=== PATIENT | female | born 1960 | race Caucasian/White ===

== ENCOUNTER → 2016-09-07 | Outpatient (CLI) | payer MEDICAID ==
[~2016-09-07] MED LIST: ALBU2.5V4; ALPR0.5T PO; ASPI-999 PO; ATOR20TA66 PO; BENA5TAB2 PO; CEFP200T2 PO; CHOL10007 PO; CYCL10TA9 PO; FLUT1DIS28 IH; FRSM10B60 PO; GEMF600T3 PO; HYDR12.56 PO; LINA5TAB PO; LISI-552 PO; LOSA1TAB69; METF1000 PO; METO-333 PO; PARO-49 PO; POTA10TA6 PO; PRD20T PO; PSYL0.5211 PO; RANI150T90 PO; TRAZ-28 PO
--- NOTE | 2016-09-07 16:47 | Diagnostic Imaging Report ---
PROCEDURE: MRI left upper extremity without contrast. TECHNIQUE: Multiplanar, multisequence non contrast-enhanced MRI of the left upper extremity was accomplished. INDICATION: Left shoulder pain. FINDINGS: There is no os acromiale or Hill-Sachs deformity. There is acromioclavicular joint osteoarthritis with prominent inferior osteophytes that have an impression upon the myotendinous junction of the supraspinatus. There is also mild hyperostosis along the undersurface of the acromion abutting the infraspinatus tendon. There is a high-grade partial tear in the infraspinatus tendon about 1.7 cm from the insertion point. There is a full-thickness tear in the supraspinatus distal tendon with minimal retraction. 3 mm gap at the site of the tear along the anterior fibers of the supraspinatus is however seen which is about 5 mm from the insertion point. The subscapular tendon demonstrates no definite tear. There is mild increased signal in the distal tendon fibers may relate to tendinosis however. Increased signal in the posterior segment of the labrum may relate to a nondisplaced tear. There is subchondral edema in the marrow along the inferior aspect of the glenoid. This could be related to prior injury or reactive edema. Small amount of fluid in the subacromial subdeltoid bursa is seen and small amount of glenohumeral joint fluid is also noted. There is only minimal supraspinatus muscle atrophy. The bulk of the other muscles around the shoulder is normal. IMPRESSION: 1. High-grade partial tear in the infraspinatus and focal full-thickness tear in the supraspinatus anterior fibers. 2. Acromioclavicular osteoarthritis with prominent inferior osteophytes. There is also mild hyperostosis along the undersurface of the acromion posteriorly. 3. Increased signal in the posterior segment of the labrum may relate to a nondisplaced tear. Dictated by: Dictated on workstation # [id number]
== END ==
LOC: RAD 15:21
PROVIDERS: ATTEND Nurse Practitioner Family
DX: M25.512 Pain in left shoulder (principal)
CPT/HCPCS: 73221

== ENCOUNTER → 2016-10-27 | Outpatient (CLI) | payer MEDICAID ==
[2016-10-27 11:57] LABS: ABG BASE EXCESS -0.8 MMOL/L (-2.5-2.5); ABG HCO3 24 MMOL/L (23-27); ABG OXYGEN SATURATION 95 % (94-100); ABG PCO2 43 MMHG (35-45); ABG PH 7.36 (7.37-7.43); ABG PO2 68 MMHG (79-93); ABG TCO2 25.4 MMOL/L (21.0-31.0); ALLENS TEST YES-POS
--- NOTE | 2016-10-27 14:14 | Diagnostic Imaging Report ---
PA and lateral views of the chest. INDICATION: Shortness of breath. FINDINGS: The lungs are clear. There is mild hyperinflation however. The heart size is normal. There is no effusion or pneumothorax. The mediastinum and luly appear unremarkable. IMPRESSION: Mildly hyperinflated, clear lungs. Dictated by: Dictated on workstation # [id number]
== END ==
LOC: RAD 11:17
PROVIDERS: ATTEND Internal Medicine Critical Care Medicine
DX: R91.8 Other nonspecific abnormal finding of lung field (principal); J44.9 Chronic obstructive pulmonary disease, unspecified; R06.02 Shortness of breath; Z72.0 Tobacco use
CPT/HCPCS: 71020; 82805

== ENCOUNTER 2016-12-03 21:14 | Outpatient (CLI) | payer MEDICAID | END 2016-12-04 06:18 | disposition home or self-care (01) | LOC: SLEEP 21:14 | PROVIDERS: ATTEND Internal Medicine Critical Care Medicine | DX: G47.33 Obstructive sleep apnea (adult) (pediatric) (principal) | CPT/HCPCS: 95810 ==

== ENCOUNTER 2017-02-23 05:40 | Outpatient (CLI) | payer MEDICAID ==
[~2017-02-23] VITALS: Ht 152.4 cm; Wt 102.1 kg
[~2017-02-23 05:40] MED LIST changes: -ALBU2.5V4; +ALBU2.5V4 IN
[2017-02-23] MEDS ORDERED: ASPI-808 PO (14:24)
== END 2017-02-23 14:26 ==
LOC: PREOP 05:40
PROVIDERS: ATTEND Surgery
DX: Z01.818 Encounter for other preprocedural examination (principal); K21.9 Gastro-esophageal reflux disease without esophagitis

== ENCOUNTER 2017-02-28 09:36 | Day surgery (SDC) | payer MEDICAID ==
[~2017-02-28] VITALS: Ht 152.4 cm; Wt 102.1 kg
[~2017-02-28 09:36] MED LIST changes: +ASPI-808 PO; +LOSA1TAB20; -LOSA1TAB69
[2017-02-28 09:40] VITALS: BP 144/83
[2017-02-28] MEDS ORDERED: LACTATED RINGERS 1,000 ML IV ONE (09:41)
[2017-02-28] MEDS ORDERED: LACTATED RINGERS 1,000 ML IV STA (10:00)
[2017-02-28] MEDS ORDERED: proPOfol 200 MG/20 ML (DIPRIVAN) VIAL IV ONE (11:23)
[2017-02-28] MEDS ORDERED: HURRICAINE EXT TUBE (BENZOCAINE) ONE (11:26)
--- NOTE | 2017-02-28 11:37 | Progress Note-Pre Operative ---
Pre-Operative Progress Note H&P Reviewed The H&P was reviewed, patient examined and no changes noted. Date Seen by Provider: Feb 28, 2017 Time Seen by Provider: 11:36 Date H&P Reviewed: Feb 28, 2017 Time H&P Reviewed: 11:36 Pre-Operative Diagnosis: right upper quadrant pain, gerd DEBBI LYNN DO Feb 28, 2017 11:36
--- NOTE | 2017-02-28 11:46 | Progress Note-Post Operative ---
Post-Operative Progess Note Surgeon (s)/Ekg Monitor Tech (s) Surgeon DEBBI LYNN DO Ekg Monitor Tech: na Pre-Operative Diagnosis right upper quadrant pain, gerd Post-Operative Diagnosis gastritis Procedure & Operative Findings Date of Procedure 02/28/17 Procedure Performed/Findings egd c biopsies Anesthesia Type per [facility] Estimated Blood Loss Estimated blood loss (mL): none Specimens/Packing Specimens Removed antrum, ge junction DEBBI LYNN DO Feb 28, 2017 11:46
[2017-02-28] MEDS ORDERED: PANT40TA2 PO (11:48)
--- NOTE | 2017-02-28 11:55 | Discharge Inst-Simple/Standard ---
Discharge Inst-Standard Discharge Medications New, Converted or Re-Newed RX: RX on Chart Patient Instructions/Follow Up Plan of Care/Instructions/FU: 3 weeks Adrianne Activity as Tolerated: Yes Discharge Diet: Regular Diet DEBBI LYNN DO Feb 28, 2017 11:55
[2017-02-28 12:00] VITALS: BP 142/96
[2017-02-28] MEDS ORDERED: HURRICAINE EXT TUBE (BENZOCAINE) XX ONE (12:00)
[2017-02-28 12:30] VITALS: BP 167/82
[2017-02-28 12:39] VITALS: BP 167/82
--- NOTE | 2017-03-01 04:35 | OPERATIVE REPORT ---
DATE OF SERVICE: 02/28/2017 PREOPERATIVE DIAGNOSES: 1. Right upper quadrant abdominal pain. 2. Gastroesophageal reflux disease. POSTOPERATIVE DIAGNOSES: Gastritis. PROCEDURE: GE biopsies. SPECIMEN: Antrum and GE junction. INDICATION: The patient is a 56-year-old female with right upper quadrant abdominal pain. She understands the risks and benefits of the procedure and wishes to proceed with the procedure. Consents signed and in the chart. PROCEDURE: The patient was taken to the endoscopy suite, placed in left lower recumbent position. Timeout was performed. The scope was inserted in the mouth, down the esophagus, stomach and into the duodenum without difficulty. There were no polyps, masses or ulcerations in the duodenum. The scope was slowly retracted back into the stomach which had erythematous changes and the appearance of maybe 2 small ulcers in the antrum, biopsy was obtained. The scope was retroflexed noting no other pathology. The scope was returned to its normal position, slowly withdrawn to the distal esophagus. Maybe some slight erythematous changes present, so a biopsy was obtained of the GE junction. The scope was slowly retracted back until completely removed, noting no other pathology. RECOMMENDATIONS: The patient will be switched from Pepcid to Protonix 40 mg daily. We will see her in 3 weeks to see how she is doing at that time and go over the biopsy results. If she has any problems prior to that, she should be reevaluated at that time. Job ID: [id number] DocumentID: [id number] Dictated Date: 02/28/2017 11:58:11 Nurse Manager Date: 03/01/2017 04:34:38 Dictated By: DEBBI LYNN DO
[2017-04-20] MEDS ORDERED: METF500T4 PO (14:13)
[2017-04-20] MEDS ORDERED: PANT40TA3 PO (14:13)
[2017-04-20] MEDS ORDERED: FENO54TA PO (14:13)
[2017-04-20] MEDS ORDERED: HYDR-3812 PO (14:13)
[2017-04-20] MEDS ORDERED: TIOT18CA2 IH (14:13)
[2017-04-20] MEDS ORDERED: RT-ALBUINH IH (14:13)
[2017-04-20] MEDS ORDERED: MONT10TA24 PO (14:13)
[2017-04-20] MEDS ORDERED: BACL10TA PO (14:13)
[2017-04-20] MEDS ORDERED: FLUT1DIS26 IH (14:13)
[2017-04-20] MEDS ORDERED: OMEG-154 PO (14:13)
== END 2017-02-28 12:35 | disposition home or self-care (01) ==
LOC: ENDO 09:36
PROVIDERS: ATTEND Surgery
DX: I10 Essential (primary) hypertension; E78.00 Pure hypercholesterolemia, unspecified; M06.9 Rheumatoid arthritis, unspecified; K21.9 Gastro-esophageal reflux disease without esophagitis; M79.7 Fibromyalgia; E05.90 Thyrotoxicosis, unspecified without thyrotoxic crisis or storm; Z79.84 Long term (current) use of oral hypoglycemic drugs; J44.9 Chronic obstructive pulmonary disease, unspecified; G47.33 Obstructive sleep apnea (adult) (pediatric); K29.70 Gastritis, unspecified, without bleeding; E11.9 Type 2 diabetes mellitus without complications; Z79.899 Other long term (current) drug therapy; F17.210 Nicotine dependence, cigarettes, uncomplicated
CPT/HCPCS: 82962; 88305

== ENCOUNTER → 2017-03-07 | Outpatient (CLI) | payer MEDICAID ==
[~2017-03-07] MED LIST changes: -LOSA1TAB20; +LOSA1TAB69; +PANT40TA2 PO
--- NOTE | 2017-03-07 09:35 | Diagnostic Imaging Report ---
PROCEDURE: US Gallbladder. TECHNIQUE: Multiple real-time grayscale images were obtained over the right upper quadrant in various projections. INDICATION: Abdominal pain. FINDINGS: The area of the pancreas is largely obscured. The liver is hyperechoic and is 23 cm in craniocaudal dimension, enlarged. The echogenicity is in favor of underlying hepatitis or fatty infiltration. The gallbladder demonstrates no stones or wall thickening. The CBD is 4 mm in caliber. Hepatopetal flow in the portal vein is seen. There is no fluid collection in the upper right abdomen seen. The right kidney is 10.4 cm in length with no hydronephrosis. IMPRESSION: 1. No gallstones or evidence of cholecystitis. 2. Hepatomegaly. Increased parenchymal echogenicity may relate to hepatitis or fatty infiltration. Dictated by: Dictated on workstation # [id number]
== END ==
LOC: RAD 08:22
PROVIDERS: ATTEND Surgery
DX: R16.0 Hepatomegaly, not elsewhere classified (principal); K21.9 Gastro-esophageal reflux disease without esophagitis
CPT/HCPCS: 76705

== ENCOUNTER 2017-04-26 10:29 | Day surgery (SDC) | payer MEDICAID ==
--- NOTE | 2017-04-17 14:13 | HISTORY AND PHYSICAL ---
DATE OF SERVICE: DATE OF ADMISSION: 04/26/2017 ADMISSION HISTORY AND PHYSICAL SOCIAL SECURITY: 4595. REASON FOR ADMISSION: This will be for outpatient surgery on 04/26/2017 for left shoulder arthroscopy with rotator cuff repair. HISTORY OF PRESENT ILLNESS: The patient is a 57-year-old right-hand dominant female with complaints of left shoulder pain over the last 6 months. She reports weakness in her shoulder. She underwent an MRI, which revealed full thickness supraspinatus tear. She reports functional impairment. She reports no improvement with activity modifications and other conservative measures and due to functional impairment. The patient elected to proceed with surgical intervention. PAST MEDICAL HISTORY: COPD, depression, diverticulosis, diabetes, hypertension, fibromyalgia, hypothyroidism, rheumatoid arthritis, chronic pain, diabetic neuropathy, anxiety disorder, reflux, tobacco use. PAST SURGICAL HISTORY: , cardiac catheterization, hysterectomy, and herniorrhaphy. FAMILY HISTORY: Significant for diabetes, hypertension, and cancer. PRIMARY CARE PROVIDER: [facility]. MEDICATIONS: Metamucil, vitamin D, Zofran, cyclobenzaprine, alprazolam, Tradjenta, metformin, benazepril, metoprolol, ranitidine, paroxetine, albuterol, Ventolin, Advair, fenofibrate, Spiriva, Singulair, fish oil, and aspirin. ALLERGIES: CYMBALTA and CRESTOR. SOCIAL HISTORY: The patient is a current everyday smoker. Denies alcohol use. PHYSICAL EXAMINATION: GENERAL: The patient is well developed, well-nourished in no acute distress. HEENT: Normocephalic, atraumatic. Pupils are equal, round, and reactive to light. Oropharynx is clear. NECK: Supple, no lymphadenopathy. LUNGS: Clear to auscultation bilaterally. HEART: Regular rate and rhythm. ABDOMEN: Soft, nontender, nondistended. EXTREMITIES: The patient is nontender at her acromioclavicular joint. There is no atrophy noted. She has active forward elevation 140 degrees, passive of 160 degrees, external rotation of 70 degrees, internal rotation is to her upper lumbar spine. She has weakness with abduction and external rotation. IMPRESSION: Left shoulder rotator cuff tear. PLAN: Left shoulder arthroscopy with rotator cuff repair. The risks, benefits, options, ramifications and recovery have been discussed at length with the patient. She understands and wishes to proceed. Job ID: [id number] DocumentID: [id number] Dictated Date: 04/17/2017 13:24:59 Tank Builder Supervisor Date: 04/17/2017 14:13:14 Dictated By: LORI ALICEA MD
[~2017-04-26] VITALS: Ht 152.4 cm; Wt 108.9 kg
[~2017-04-26 10:29] MED LIST changes: +BACL10TA PO; +FENO54TA PO; +FLUT1DIS26 IH; +HYDR-3812 PO; +METF500T4 PO; +MONT10TA24 PO; +OMEG-154 PO; +PANT40TA3 PO; +RT-ALBUINH IH; +TIOT18CA2 IH
--- OUTSIDE RECORDS SUMMARY | 2017-04-26 10:34 | XMS REPORT | Continuity of Care Document ---
Author Author [employer] Organization [facility] Address Unknown Phone Unavailable Care Team Providers Care Appliance Servicer Name Role Phone [employer] Unavailable Unavailable Problems Medications Allergies, Adverse Reactions, Alerts Immunizations Results Vital Signs Encounters Procedures Plan of Care Social History Assessment and Plan Family History Value Date Source Advance Directives Order Name Results Value Date Source
--- OUTSIDE RECORDS SUMMARY | 2017-04-26 10:35 | XMS REPORT ---
Author Author KATIE JEFFRIES Organization [facility] Address [address] [place] [address] Care Team Providers Care Director Of Accounts Payable Name Role Phone KATIE JEFFRIES Unavailable PROBLEMS Type Condition ICD9-CM Code [id number] Code Onset Dates Condition Status SNOMED Code Problem Type 2 diabetes mellitus with unspecified complications E11.8 Active 92360041 Problem Controlled substance agreement signed Z79.899 Active 445027094 Problem Low magnesium levels E83.42 Active 115832435 Problem 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 Active 31265305 Problem Osteoarthritis of acromioclavicular joint M19.019 Active 356404540 Problem Chronic renal insufficiency N18.9 Active 898074053 Problem Mild sleep apnea G47.30 Active 25889657 Problem Hyperlipidemia E78.5 Active 97757805 Problem Mixed hyperlipidemia E78.2 Active 570010572 Problem Vitamin D deficiency E55.9 Active 62267970 Problem Excessive daytime sleepiness G47.19 Active 013351641486 Problem Anxiety associated with depression F41.8 Active 734401236 Problem Peripheral neuropathy G62.9 Active 40194126 Problem Tear of left infraspinatus tendon, subsequent encounter S46.812D Active 8307416 Problem Tear of left supraspinatus tendon, subsequent encounter S46.812D Active 684066072 Problem COPD (chronic obstructive pulmonary disease) J44.9 Active 34270166 Problem GERD (gastroesophageal reflux disease) K21.9 Active 366498586 Problem Essential hypertension I10 Active 59881602 Problem Low back pain M54.5 Active 796409035 Problem Insomnia G47.00 Active 406737020 Problem Other chronic pain G89.29 Active 59179500 ALLERGIES No Information SOCIAL HISTORY Never Assessed PLAN OF CARE VITAL SIGNS MEDICATIONS Medication Instructions Dosage Frequency Start Date End Date Duration Status Xanax 0.5 MG Orally Twice a day and 1/2 at HS 1 tablet 28 days Active RESULTS No Results PROCEDURES No Known procedures IMMUNIZATIONS No Known Immunizations MEDICAL (GENERAL) HISTORY Type Description Date Medical History Essential (primary) hypertension Medical History Diabetes Medical History Depression Medical History Chronic pain Medical History COPD Medical History Rheumatoid arthritis Medical History Diabetic neuropathy Medical History Fibromyalgia Medical History nodules on lung and liver Medical History mass on adrenal gland Medical History diverticulosis Medical History hyperthyroidism Surgical History section x 3 Surgical History hernia repair Surgical History hysterectomy Surgical History Heart cath 11/24/2015 Hospitalization History surgeries Hospitalization History Acute Renal Failure, Ecaxerbation COPD, Hyponatremia 10/02/15 Hospitalization History COPD x 3 days 03/14/2017
--- OUTSIDE RECORDS SUMMARY | 2017-04-26 10:35 | XMS REPORT ---
Author Author KATIE JEFFRIES Organization [facility] Address [address] [place] [address] Care Team Providers Care Manager Labor Relations Name Role Phone KATIE JEFFRIES Unavailable PROBLEMS Type Condition ICD9-CM Code [id number] Code Onset Dates Condition Status SNOMED Code Problem Mild sleep apnea G47.30 Active 59810177 Problem Osteoarthritis of acromioclavicular joint M19.019 Active 811042076 Problem Tear of left infraspinatus tendon, subsequent encounter S46.812D Active 5004877 Problem Low vitamin D level E55.9 Active 355402187 Problem Tear of left supraspinatus tendon, subsequent encounter S46.812D Active 160430639 Problem Controlled substance agreement signed Z79.899 Active 181511040 Problem Type 2 diabetes mellitus with unspecified complications E11.8 Active 48241952 Problem Hyperlipidemia E78.5 Active 97889437 Problem Dyspnea R06.00 Active 956045231 Problem Hypertriglyceridemia E78.1 Active 298530844 Problem Chronic renal insufficiency N18.9 Active 093500212 Problem COPD (chronic obstructive pulmonary disease) with acute bronchitis J44.0 Active 867290922300283 Problem Essential hypertension I10 Active 77908622 Problem Peripheral neuropathy G62.9 Active 93690920 Problem Anxiety associated with depression F41.8 Active 705484922 Problem Excessive daytime sleepiness G47.19 Active 923292239933 Problem Chest pain, unspecified R07.9 Active 90861490 Problem Left anterior shoulder pain M25.512 Active 50151561 Problem Vitamin D deficiency E55.9 Active 63706243 Problem GERD (gastroesophageal reflux disease) K21.9 Active 465192537 Problem Low back pain M54.5 Active 083771483 Problem Insomnia G47.00 Active 410985937 Problem COPD (chronic obstructive pulmonary disease) J44.9 Active 45907817 Problem Tobacco abuse Z72.0 Active 51350767 Problem Low magnesium levels E83.42 Active 201037692 Problem Other chronic pain G89.29 Active 43617458 Problem Mixed hyperlipidemia E78.2 Active 179971451 ALLERGIES No Information SOCIAL HISTORY Never Assessed PLAN OF CARE VITAL SIGNS MEDICATIONS Medication Instructions Dosage Frequency Start Date End Date Duration Status Baclofen 10 mg Orally Three times a day as needed 0.5 tablet with food or milk Aug, 10 days Active RESULTS Name Result Date Reference Range MRI : Shoulder, Left 2016-09-07 PROCEDURES No Known procedures IMMUNIZATIONS No Known [...]
--- OUTSIDE RECORDS SUMMARY | 2017-04-26 10:35 | XMS REPORT ---
Author Author KATIE JEFFRIES Organization [facility] Address [address] [place] [address] Care Team Providers Care Inseam Trimming Machine Operator Name Role Phone KATIE JEFFRIES Unavailable PROBLEMS Type Condition ICD9-CM Code [id number] Code Onset Dates Condition Status SNOMED Code Problem Mild sleep apnea G47.30 Active 42199554 Problem Osteoarthritis of acromioclavicular joint M19.019 Active 996633040 Problem Low magnesium levels E83.42 Active 138774615 Problem Tear of left infraspinatus tendon, subsequent encounter S46.812D Active 5979759 Problem Low vitamin D level E55.9 Active 025163809 Problem Tear of left supraspinatus tendon, subsequent encounter S46.812D Active 733597546 Problem Controlled substance agreement signed Z79.899 Active 875909407 Problem Hypertriglyceridemia E78.1 Active 287359249 Problem Hyperlipidemia E78.5 Active 81041349 Problem COPD (chronic obstructive pulmonary disease) with acute bronchitis J44.0 Active 646124896998250 Problem Left anterior shoulder pain M25.512 Active 55925331 Problem Peripheral neuropathy G62.9 Active 12621793 Problem Anxiety associated with depression F41.8 Active 271572239 Problem Type 2 diabetes mellitus with unspecified complications E11.8 Active 10046222 Problem Chest pain, unspecified R07.9 Active 24139141 Problem Dyspnea R06.00 Active 133755975 Problem Vitamin D deficiency E55.9 Active 99790295 Problem Excessive daytime sleepiness G47.19 Active 800133597240 Problem COPD (chronic obstructive pulmonary disease) J44.9 Active 85352072 Problem GERD (gastroesophageal reflux disease) K21.9 Active 208701316 Problem Essential hypertension I10 Active 70706826 Problem Insomnia G47.00 Active 936370245 Problem Mixed hyperlipidemia E78.2 Active 171759230 Problem Tobacco abuse Z72.0 Active 03512794 Problem Low back pain M54.5 Active 537837664 Problem Other chronic pain G89.29 Active 55743358 ALLERGIES Substance Reaction Event Type Date Status Cymayaalta suicidal thoughts Drug Allergy Aug, Active Crestor Unknown Drug Allergy Aug, Active SOCIAL HISTORY Never Assessed PLAN OF CARE Activity Details Follow Up 3 Months Reason:chm VITAL SIGNS Height 65 in 2016-08-11 Weight 218.0 lbs 2016-08-11 Temperature 98.5 degrees Fahrenheit 2016-08-11 Heart Rate 96 bpm 2016-08-11 Respiratory Rate 24 2016-08-11 Oximetry 94 % 2016-08-11 BMI 36.27 kg/m2 2016-08-11 Blood pressure systolic 162 mmHg 2016-08-11 Blood pressure diastolic 90 mmHg 2016-08-11 MEDICATIONS Medication Instructions Dosage Frequency Start Date End Date Duration Status Xanax 0.5 MG Orally Twice a day and 1/2 at HS 1 tablet 28 days Active Fish Oil 1200 MG Orally Once a day 1 capsule 24h Active Zofran 4 MG Orally 2 times a day 1 tablet 12h Jun, 10 days Active Singulair 10 mg Orally Once a day 1 tablet in the evening 24h 90 days Active Albuterol Sulfate (2.5 MG/3ML) 0.083% Inhalation Three times a day PRN 3 ml Active Albuterol Sulfate HFA 108 (90 Base) MCG/ACT Inhalation every 4 hrs 2 puffs as needed 4h May, 12 months Active Paroxetine HCl 20 mg Orally 2 times a day 1 tablet 12h Sep, 90 days Active Fenofibrate 54 MG Orally Once a day 1 tablet with a meal 24h May, 90 days Active QC Ibuprofen 200 MG Orally every 6 hrs 1 tablet as needed 6h May, Active Ranitidine HCl 150 MG Orally Twice a day 1 capsule 12h 90 days Active Tradjenta 5 mg Orally Once a day 1 tablet 24h Sep, 90 days Active Advair Diskus 250-50 MCG/DOSE Inhalation Twice a day 1 puff 12h Sep, 12 months Active Metamucil 0.52 GM Orally Three times a day 2 capsules with 8 ounces of liquid 8h Active Flexeril 10 oral 3 times a day 8h Active Doxycycline Monohydrate 100 mg Orally every 12 hrs 1 capsule 12h Aug, Aug, 07 days Active Metoprolol Tartrate 25 MG Orally Twice a day 1 tablet with food 12h Aug 90 days Active Spiriva HandiHaler 18 MCG Inhalation Once a day 1 capsule 24h October, 90 days Active Vitamin D-3 5000 UNIT Orally once daily 1 tablet 24h May, October, 90 days Active Benazepril HCl 5 mg Orally Once a day 1 tablet 24h Sep, 90 days Active Aspirin 325 MG Orally Once a day 1 tablet 24h Active PredniSONE 20 mg Orally Once a day 1 tablet 24h Aug, Aug, 05 days Active Metformin HCl 1000 MG Orally Twice a day 1 tablet with meals 12h Apr, 90 days Active RESULTS Name Result Date Reference Range UA LONG DIP (IN HOUSE) 2016-08-11 Lot # [id number] Exp date 07/12/17 Clarity clear Color yellow Odor none GLU negative RAMU negative KET negative SG 1.015 BLO negative pH 6.5 Protein negative URO 0.2 NIT negative VINCENT negative Lot # Exp date Xray : Shoulder, Left 2 view (IN HOUSE) 2016-08-11 Xray : Chest (IN HOUSE) 2016-08-11 CBC 2016-08-11 WBC 11.7 3.4-10.8 RBC 4.54 3.77-5.28 Hemoglobin 12.6 11.1-15.9 Hematocrit 38.6 34.0-46.6 MCV 85 79-97 MCH 27.8 26.6-33.0 MCHC 32.6 31.5-35.7 RDW 17.3 12.3-15.4 Platelets 400 150-379 Neutrophils 62 Lymphs 26 Monocytes 9 Eos 3 Basos 0 Neutrophils (Absolute) 7.1 1.4-7.0 Lymphs (Absolute) 3.1 0.7-3.1 Monocytes(Absolute) 1.1 0.1-0.9 Eos (Absolute) 0.3 0.0-0.4 Baso (Absolute) 0.0 0.0-0.2 Immature Granulocytes 0 Immature Grans (Abs) 0.0 0.0-0.1 CMP 2016-08-11 Glucose, Serum 135 65-99 BUN 13 6-24 Creatinine, Serum 1.02 0.57-1.00 eGFR If NonAfricn Am 62 >59 eGFR If Africn Am 72 >59 BUN/Creatinine Ratio 13 9-23 Sodium, Serum 137 134-144 Potassium, Serum 4.5 3.5-5.2 Chloride, Serum 96 96-106 Carbon Dioxide, Total 26 18-29 Calcium, Serum 9.2 8.7-10.2 Protein, Total, Serum 7.4 6.0-8.5 Albumin, Serum 4.4 3.5-5.5 Globulin, Total 3.0 1.5-4.5 A/G Ratio 1.5 1.1-2.5 Bilirubin, Total <0.2 0.0-1.2 Alkaline Phosphatase, S 60 39-117 AST (SGOT) 12 0-40 ALT (SGPT) 11 0-32 PROCEDURES Procedure Date Ordered Result Body Site MEASURE BLOOD OXYGEN LEVEL August 11, 2016 CHEST X-RAY August 11, 2016 VENIPUNCT, ROUTINE* August 11, 2016 COMPREHEN METABOLIC PANEL August 11, 2016 X-RAY EXAM OF SHOULDER August 11, 2016 URINALYSIS, AUTO, W/O SCOPE August 11, 2016 COMPLETE CBC W/AUTO DIFF WBC August 11, 2016 IMMUNIZATIONS No Known Immunizations MEDICAL (GENERAL) HISTORY [...]
--- OUTSIDE RECORDS SUMMARY | 2017-04-26 10:35 | XMS REPORT ---
Author Author NICOLE CLINE Organization [employer] Address Unknown Phone Unavailable Care Team Providers Care Clock Mechanic Name Role Phone NICOLE CLINE CP Unavailable Allergies No Known Allergies Problems Problem Type Condition Code Onset Dates Condition Status Assessment Hyperlipemia E78.5 Active Problem Insomnia G47.00 Active Problem COPD (chronic obstructive pulmonary disease) J44.9 Active Problem Essential hypertension I10 Active Problem Peripheral neuropathy G62.9 Active Problem Type 2 diabetes mellitus with unspecified complications E11.8 Active Problem GERD (gastroesophageal reflux disease) K21.9 Active Problem Anxiety associated with depression F41.8 Active Problem Low back pain M54.5 Active Problem Other chronic pain G89.29 Active Medications Medication Code System Code Instructions Start Date End Date Status Dosage Atorvastatin Calcium [facility] [address]-27 20 MG Orally Once a day Jun 10, 2015 1 tablet Vitamin D-3 [facility] [address]-14 5000 UNIT Orally once daily Jun 10, 2015 1 tablet Results No Known Results Summary Purpose [employer] Submission
--- OUTSIDE RECORDS SUMMARY | 2017-04-26 10:35 | XMS REPORT ---
Author Author KATIE JEFFRIES Organization [employer] Address Unknown Phone Unavailable Care Team Providers Care Otm Consultant Name Role Phone KATIE JEFFRIES CP Unavailable Allergies No Known Allergies Problems Problem Type Condition Code Onset Dates Condition Status Problem Low magnesium levels E83.42 Active Problem COPD (chronic obstructive pulmonary disease) J44.9 Active Problem Controlled substance agreement signed Z79.899 Active Problem Insomnia G47.00 Active Problem Mixed hyperlipidemia E78.2 Active Problem Hypertriglyceridemia E78.1 Active Problem Hyperlipidemia E78.5 Active Problem Vitamin D deficiency E55.9 Active Problem Hospital discharge follow-up Z09 Active Problem Other chronic pain G89.29 Active Problem GERD (gastroesophageal reflux disease) K21.9 Active Problem Bronchitis J40 Active Problem Anxiety associated with depression F41.8 Active Problem Shortness of breath R06.02 Active Problem Chest pain, unspecified R07.9 Active Problem Excessive daytime sleepiness G47.19 Active Problem Dyspnea R06.00 Active Problem Essential hypertension I10 Active Problem Type 2 diabetes mellitus with unspecified complications E11.8 Active Problem Low back pain M54.5 Active Problem Peripheral neuropathy G62.9 Active Problem Upper respiratory tract infection, unspecified type J06.9 Active Problem Low vitamin D level E55.9 Active Problem Tobacco abuse Z72.0 Active Problem Nausea and vomiting, unspecified intactability, vomiting of unspecified type R11.2 Active Medications No Known Medications Results No Known Results Summary Purpose [employer] Submission
--- OUTSIDE RECORDS SUMMARY | 2017-04-26 10:36 | XMS REPORT ---
Author Author NICOLE CLINE Organization [employer] Address Unknown Phone Unavailable Care Team Providers Care Health Services Administrator Name Role Phone NICOLE CLINE CP Unavailable Allergies No Known Allergies Problems Problem Type Condition Code Onset Dates Condition Status Problem Insomnia G47.00 Active Problem COPD (chronic obstructive pulmonary disease) J44.9 Active Problem Essential hypertension I10 Active Problem Peripheral neuropathy G62.9 Active Problem Type 2 diabetes mellitus with unspecified complications E11.8 Active Problem GERD (gastroesophageal reflux disease) K21.9 Active Problem Anxiety associated with depression F41.8 Active Problem Low back pain M54.5 Active Problem Other chronic pain G89.29 Active Medications No Known Medications Results No Known Results Summary Purpose eClinicalWorks Submission
--- OUTSIDE RECORDS SUMMARY | 2017-04-26 10:36 | XMS REPORT ---
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 Active Problem Muscle spasm of calf M62.831 Active Problem Type 2 diabetes mellitus with unspecified complications E11.8 Active Problem Essential hypertension I10 Active Problem Diabetes E11.9 Active Problem Other chronic pain G89.29 Active Problem GERD (gastroesophageal reflux disease) K21.9 Active Problem Peripheral neuropathy G62.9 Active Problem Low back pain M54.5 Active Assessment Generalized anxiety disorder F41.1 Active Assessment Anxiety about health F41.8 Active Assessment Low back pain M54.5 Active Assessment Acute stress reaction F43.0 Active Problem COPD (chronic obstructive pulmonary disease) J44.9 Active Medications Medication Code System Code Instructions Start Date End Date Status Dosage Hydrocodone-Acetaminophen [facility] [address]-75 5-325 MG Orally 2 times a day Jun 04, 2015 2 tablet as needed Xanax [facility] [address]-73 0.5 MG Orally Three times a day 1 tablet Nystatin [facility] [address]-89 057845 UNIT/ML Mouth/Throat 4 times a day MayJun 02, 2015 5mL Omeprazole [facility] [address]-53 20 MG Orally Once a day 1 capsule Trazodone HCl [facility] [address]-65 50 MG Orally Once a day 1 tablet at bedtime as needed Metformin HCl [facility] [address]-02 1000 MG Orally Twice a day May 05, 2015 1 tablet with meals Hydrochlorothiazide [facility] [address]-59 12.5 MG Orally Once a day May 05, 2015 1 tablet Flexeril ND 0 10 oral 3 times a day not defined Albuterol Sulfate [facility] [address]-20 (2.5 MG/3ML) 0.083% Inhalation Three times a day 3 ml Procedures Procedure Coding System Code Date No Charge CPT-4 85666 May 19, 2015 Office Visit, Est Pt., Level 4 CPT-4 01384 May 19, 2015 DRUG SCREEN NON TLC DEVICES CPT-4 55832 May 19, 2015 Vital Signs Date/Time: May 19, 2015 Temperature 98.0 F Weight 228.8 lbs Height 65 in BMI 38.07 Index Blood Pressure Diastolic 108 mmHg Blood Pressure Systolic 180 mmHg Cardiac Monitoring Heart Rate 112 bpm Results No Known Results Summary Purpose eClinicalWorks Submission
--- OUTSIDE RECORDS SUMMARY | 2017-04-26 10:36 | XMS REPORT ---
Author Author KATIE JEFFRIES Organization [employer] Address Unknown Phone Unavailable Care Team Providers Care Hostel Manager Name Role Phone KATIE JEFFRIES CP Unavailable Allergies, Adverse Reactions, Alerts Substance Reaction Event Type Cymbalta suicidal thoughts Drug Allergy Problems Problem Type Condition Code Onset Dates Condition Status Assessment Chest pain, unspecified R07.9 Active Assessment Shortness of breath R06.02 Active Problem Tobacco abuse Z72.0 Active Assessment Dyspnea R06.00 Active Problem Nausea and vomiting, unspecified intactability, vomiting of unspecified type R11.2 Active Assessment Mixed hyperlipidemia E78.2 Active Problem Upper respiratory tract infection, unspecified type J06.9 Active Problem Low magnesium levels E83.42 Active Problem Low vitamin D level E55.9 Active Problem Shortness of breath R06.02 Active Problem Chest pain, unspecified R07.9 Active Problem COPD (chronic obstructive pulmonary disease) J44.9 Active Assessment Essential hypertension I10 Active Problem Dyspnea R06.00 Active Assessment Anxiety associated with depression F41.8 Active Problem Mixed hyperlipidemia E78.2 Active Problem Controlled substance agreement signed Z79.899 Active Problem Hypertriglyceridemia E78.1 Active Problem Hyperlipidemia E78.5 Active Problem GERD (gastroesophageal reflux disease) K21.9 Active Problem Other chronic pain G89.29 Active Problem Insomnia G47.00 Active Problem Anxiety associated with depression F41.8 Active Problem Essential hypertension I10 Active Problem Type 2 diabetes mellitus with unspecified complications E11.8 Active Problem Low back pain M54.5 Active Problem Peripheral neuropathy G62.9 Active Medications Medication Code System Code Instructions Start Date End Date Status Dosage Vitamin D-3 [facility] [address]-58 5000 UNIT Orally once daily Jun 10, 2015 1 tablet Atorvastatin Calcium [facility] [address]-32 20 mg Orally Once a day September 18, 2015 1 tablet Gemfibrozil [facility] [address]-96 600 MG Orally Twice a day August 18, 2015 1 tablet Albuterol Sulfate HFA [facility] [address]-91 108 (90 Base) MCG/ACT Inhalation every 4 hrs Jun 02, 2015 2 puffs as needed Zofran [facility] [address]-39 4 MG Orally 2 times a day Jul 02, 2015 1 tablet Hyzaar [facility] [address]-89 50-12.5 MG Orally Once a day September 11, 2015 1 tablet Flexeril [facility] 0 10 oral 3 times a day not defined Albuterol Sulfate [facility] [address]-49 (2.5 MG/3ML) 0.083% Inhalation Three times a day PRN 3 ml Paroxetine HCl [facility] [address]-14 20 mg Orally 2 times a day September 18, 2015 1 tablet in the morning QC Ibuprofen [facility] [address]-47 200 MG Orally every 6 hrs Jun 02, 2015 1 tablet as needed Tradjenta [facility] [address]-54 5 MG Orally Once a day September 11, 2015 1 tablet Metoprolol Tartrate [facility] [address]-96 25 MG Orally Once a day September 11, 2015 1 tablet with food Metamucil [facility] 33962-40871 0.52 GM Orally Three times a day 2 capsules with 8 ounces of liquid Ranitidine HCl [facility] 61130349708 150 MG Orally Twice a day 1 capsule Trazodone HCl [facility] [address]-16 50 MG Orally Once a day 1 tablet at bedtime as needed Advair Diskus [facility] [address]-94 100-50 MCG/DOSE Inhalation Twice a day August 18, 2015 1 puff Metformin HCl [facility] [address]-19 1000 MG Orally Twice a day May 05, 2015 1 tablet with meals Xanax [facility] [address]-62 0.5 MG Orally Three times a day 1 tablet Procedures Procedure Coding System Code Date Office Visit, Est Pt., Level 3 CPT-4 51260 September 18, 2015 Vital Signs Date/Time: September 18, 2015 Temperature 98.2 F Weight 221.0 lbs Height 65 in BMI 36.77 Index Blood Pressure Diastolic 84 mmHg Blood Pressure Systolic 136 mmHg Cardiac Monitoring Heart Rate 90 bpm Results No Known Results Summary Purpose eClinicalWorks Submission
--- OUTSIDE RECORDS SUMMARY | 2017-04-26 10:37 | XMS REPORT ---
Author Author KATIE JEFFRIES Organization [employer] Address Unknown Phone Unavailable Care Team Providers Care Environmental Research Project Manager Name Role Phone KATIE JEFFRIES CP Unavailable Allergies No Known Allergies Problems Problem Type Condition Code Onset Dates Condition Status Assessment Frequent UTI N39.0 Active Problem Upper respiratory tract infection, unspecified type J06.9 Active Assessment Elevated white blood cell count D72.829 Active Problem Low vitamin D level E55.9 Active Assessment Chronic renal insufficiency N18.9 Active Problem Low magnesium levels E83.42 Active Problem Mixed hyperlipidemia E78.2 Active Problem Controlled substance agreement signed Z79.899 Active Problem Excessive daytime sleepiness G47.19 Active Problem Dyspnea R06.00 Active Problem Anxiety associated with depression F41.8 Active Problem Insomnia G47.00 Active Problem Hospital discharge follow-up Z09 Active Problem COPD (chronic obstructive pulmonary disease) J44.9 Active Problem Hypertriglyceridemia E78.1 Active Problem Hyperlipidemia E78.5 Active Problem Shortness of breath R06.02 Active Problem Chest pain, unspecified R07.9 Active Problem Low back pain M54.5 Active Problem Peripheral neuropathy G62.9 Active Problem GERD (gastroesophageal reflux disease) K21.9 Active Problem Other chronic pain G89.29 Active Problem Tobacco abuse Z72.0 Active Problem Nausea and vomiting, unspecified intactability, vomiting of unspecified type R11.2 Active Problem Essential hypertension I10 Active Problem Type 2 diabetes mellitus with unspecified complications E11.8 Active Medications No Known Medications Results No Known Results Summary Purpose eClinicalWorks Submission
--- OUTSIDE RECORDS SUMMARY | 2017-04-26 10:37 | XMS REPORT ---
Author Author KATIE JEFFRIES Organization [employer] Address Unknown Phone Unavailable Care Team Providers Care Senior Environmental Engineer Name Role Phone KATIE JEFFRIES CP Unavailable Allergies No Known Allergies Problems Problem Type Condition Code Onset Dates Condition Status Problem Low magnesium levels E83.42 Active Problem Mixed hyperlipidemia E78.2 Active Problem Controlled substance agreement signed Z79.899 Active Problem Excessive daytime sleepiness G47.19 Active Problem Anxiety associated with depression F41.8 Active Problem Dyspnea R06.00 Active Problem Insomnia G47.00 Active Problem COPD (chronic obstructive pulmonary disease) J44.9 Active Problem Hospital discharge follow-up Z09 Active Problem Hypertriglyceridemia E78.1 Active Problem Hyperlipidemia [...] Active Problem Essential hypertension I10 Active Problem Upper respiratory tract infection, unspecified type J06.9 Active Problem Type 2 diabetes mellitus with unspecified complications E11.8 Active Problem Low vitamin D level E55.9 Active Medications Medication Code System Code Instructions Start Date End Date Status Dosage Paroxetine HCl [facility] [address]-34 20 mg Orally 2 times a day September 18, 2015 1 tablet Ranitidine HCl [facility] [address]-47 150 MG Orally Twice a day 1 capsule Benazepril HCl [facility] [address]-20 5 MG Orally Once a day October 09, 2015 1 tablet Results No Known Results Summary Purpose eClinicalWorks Submission
--- OUTSIDE RECORDS SUMMARY | 2017-04-26 10:37 | XMS REPORT ---
Author Author KATIE JEFFRIES Organization [employer] Address Unknown Phone Unavailable Care Team Providers Care Ornamental Painter Name Role Phone KATIE JEFFRIES CP Unavailable [...] vomiting of unspecified type R11.2 Active Medications Medication Code System Code Instructions Start Date End Date Status Dosage Benazepril HCl [facility] [address]-17 5 mg Orally Once a day October 09, 2015 1 tablet Metoprolol Tartrate [facility] 81954765888 25 MG Orally Once a day 1 tablet with food Ranitidine HCl [facility] 61877327548 150 MG Orally Twice a day 1 capsule Xanax [facility] [address]-70 0.5 MG Orally Twice a day and 1/2 at HS 1 tablet Results No Known Results Summary Purpose eClinicalWorks Submission
--- OUTSIDE RECORDS SUMMARY | 2017-04-26 10:37 | XMS REPORT ---
Author Author KATIE JEFFRIES Organization [facility] Address [address] [place] [address] Care Team Providers Care Director Of Event Sales Name Role Phone KATIE JEFFRIES Unavailable PROBLEMS Type Condition ICD9-CM Code [id number] Code Onset Dates Condition Status SNOMED Code Problem Mild sleep apnea G47.30 Active 51705292 Problem Osteoarthritis of acromioclavicular joint M19.019 Active 226197509 Problem Low magnesium levels E83.42 Active 850675597 Problem Tear of left infraspinatus tendon, subsequent encounter S46.812D Active 7027626 Problem Low vitamin D level E55.9 Active 375946661 Problem Tear of left supraspinatus tendon, subsequent encounter S46.812D Active 523239673 Problem Controlled substance agreement signed Z79.899 Active 059135257 Problem Hypertriglyceridemia E78.1 Active 570961111 Problem Hyperlipidemia E78.5 Active 14166272 Problem COPD (chronic obstructive pulmonary disease) with acute bronchitis J44.0 Active 325886064144134 Problem Left anterior shoulder pain M25.512 Active 75799852 Problem Peripheral neuropathy G62.9 Active 78785748 Problem Anxiety associated with depression F41.8 Active 623942673 Problem Type 2 diabetes mellitus with unspecified complications E11.8 Active 25009955 Problem Chest pain, unspecified R07.9 Active 63897105 Problem Dyspnea R06.00 Active 560539848 Problem Vitamin D deficiency E55.9 Active 24053341 Problem Excessive daytime sleepiness G47.19 Active 190527487189 Problem COPD (chronic obstructive pulmonary disease) J44.9 Active 95400404 Problem GERD (gastroesophageal reflux disease) K21.9 Active 274753081 Problem Essential hypertension I10 Active 96669985 Problem Insomnia G47.00 Active 946902745 Problem Mixed hyperlipidemia E78.2 Active 790411975 Problem Tobacco abuse Z72.0 Active 81130460 Problem Low back pain M54.5 Active 464121381 Problem Other chronic pain G89.29 Active 80676275 ALLERGIES No Information SOCIAL HISTORY Never Assessed PLAN OF CARE VITAL SIGNS MEDICATIONS Medication Instructions Dosage Frequency Start Date End Date Duration Status Catrachouvia 50 mg Orally Once a day 1 tablet 24h Aug, 90 days Active RESULTS No Results PROCEDURES No [...]
--- OUTSIDE RECORDS SUMMARY | 2017-04-26 10:38 | XMS REPORT ---
Author Author KATIE JEFFRIES Organization e[employer]Works Address Unknown Phone Unavailable Care Team Providers Care Rocket Engine Mechanic Name Role Phone KATIE JEFFRIES CP Unavailable Allergies No Known Allergies Problems Problem Type Condition Code Onset Dates Condition Status Problem Upper respiratory tract infection, unspecified type J06.9 Active Problem Low magnesium levels E83.42 Active Problem Low vitamin D level E55.9 Active Problem Shortness of breath R06.02 Active Problem COPD (chronic obstructive pulmonary disease) J44.9 Active Problem Chest pain, unspecified R07.9 Active Problem Dyspnea R06.00 Active Problem Mixed hyperlipidemia E78.2 Active Problem [...] Problem Low back pain M54.5 Active Problem Tobacco abuse Z72.0 Active Problem Peripheral neuropathy G62.9 Active Problem Nausea and vomiting, unspecified intactability, vomiting of unspecified type R11.2 Active Medications Medication Code System Code Instructions Start Date End Date Status Dosage Leticia [facility] [address]-75 5 MG Orally Once a day September 11, 2015 1 tablet Results No Known Results Summary Purpose eClinicalWorks Submission
--- OUTSIDE RECORDS SUMMARY | 2017-04-26 10:38 | XMS REPORT ---
Author Author KATIE JEFFRIES Organization [employer] Address Unknown Phone Unavailable Care Team Providers Care Geography Instructor Name Role Phone KATIE JEFFRIES CP Unavailable [...]
--- OUTSIDE RECORDS SUMMARY | 2017-04-26 10:38 | XMS REPORT ---
Author Author KATIE JEFFRIES Organization [employer] Address Unknown Phone Unavailable Care Team Providers Care Rod Bending Machine Operator Name Role Phone KATIE JEFFRIES CP Unavailable Allergies No Known Allergies Problems Problem Type Condition Code Onset Dates Condition Status Assessment Vitamin D deficiency E55.9 Active Assessment Essential hypertension I10 Active Assessment Type 2 diabetes mellitus with unspecified complications E11.8 Active Problem Low magnesium levels E83.42 Active [...] type R11.2 Active Medications No Known Medications Procedures Procedure Coding System Code Date ASSAY OF VITAMIN D CPT-4 67099 Jan 11, 2016 COMPREHEN METABOLIC PANEL CPT-4 79937 Jan 11, 2016 COMPLETE CBC W/AUTO DIFF WBC CPT-4 23748 Jan 11, 2016 VENIPUNCT, ROUTINE* CPT-4 36810 Jan 11, 2016 GLYCATED HEMOGLOBIN TEST CPT-4 98614 Jan 11, 2016 Results No Known Results Summary Purpose eClinicalWorks Submission
--- OUTSIDE RECORDS SUMMARY | 2017-04-26 10:38 | XMS REPORT ---
Author Author NICOLE CLINE Organization eClinicalWorks Address Unknown Phone Unavailable Care Team Providers Care Agency Legal Counsel Name Role Phone NICOLE CLINE CP Unavailable [...]
--- OUTSIDE RECORDS SUMMARY | 2017-04-26 10:38 | XMS REPORT ---
Author Author NICOLE CLINE [employer]Clinical[employer] Address Unknown Phone Unavailable Care Team Providers Care Irradiated Fuel Handler Name Role Phone NICOLE CLINE CP Unavailable Allergies, Adverse Reactions, Alerts Substance Reaction Event Type Cymbalta suicidal thoughts Drug Allergy Problems Problem Type Condition Code Onset Dates Condition Status Assessment Anxiety associated with depression F41.8 Active Problem Insomnia G47.00 Active Problem COPD (chronic obstructive pulmonary disease) J44.9 Active Problem Essential hypertension I10 Active Problem Peripheral neuropathy G62.9 Active Problem Type 2 diabetes mellitus with unspecified complications E11.8 Active Problem GERD (gastroesophageal reflux disease) K21.9 Active Problem Anxiety associated with depression F41.8 Active Problem Low back pain M54.5 Active Problem Other chronic pain G89.29 Active Assessment COPD (chronic obstructive pulmonary disease) J44.9 Active Assessment Insomnia G47.00 Active Assessment Depression F32.9 Active Assessment URI (upper respiratory infection) J06.9 Active Assessment Low back pain M54.5 Active Assessment Peripheral neuropathy G62.9 Active Assessment GERD (gastroesophageal reflux disease) K21.9 Active Assessment Essential hypertension I10 Active Assessment Other chronic pain G89.29 Active Assessment Type 2 diabetes mellitus with unspecified complications E11.8 Active Medications Medication Code System Code Instructions Start Date End Date Status Dosage Azithromycin [facility] [address]-82 250 MG Orally Once a day Jun 02, 2015 Jun 07, 2015 2 tablets on the first day, then 1 tablet daily for 4 days Xanax [facility] [address]-46 0.5 MG Orally Twice a day 1 tablet Hydrochlorothiazide [facility] [address]-22 12.5 MG Orally Once a day May 05, 2015 1 tablet Trazodone HCl [facility] [address]-51 50 MG Orally Once a day 1 tablet at bedtime as needed Flexeril NDC 0 10 oral 3 times a day not defined Albuterol Sulfate [facility] [address]-66 (2.5 MG/3ML) 0.083% Inhalation Three times a day 3 ml Lisinopril [facility] [address]-22 20 MG Orally 2 times a day 1 tablet Paxil [facility] [address]-98 20 MG Orally 2 times a day 1 tablet Albuterol Sulfate HFA [facility] [address]-12 108 (90 Base) MCG/ACT Inhalation every 4 hrs Jun 02, 2015 2 puffs as needed PredniSONE [facility] [address]-12 20 MG Orally Once a day Jun 02, 2015 Jun 07, 2015 1 tablet QC Ibuprofen [facility] [address]-07 200 MG Orally every 6 hrs Jun 02, 2015 1 tablet as needed Ranitidine HCl [facility] [address]-00 150 MG Orally Twice a day Jun 02, 2015 1 capsule Metformin HCl [facility] [address]-56 1000 MG Orally Twice a day May 05, 2015 1 tablet with meals Hydrocodone-Acetaminophen [facility] [address]-09 5-325 MG Orally 2 times a day Jun 04, 2015 2 tablet as needed ibuprofen NDC 0 200 mg Oral 2 times a day 2 capsules Procedures Procedure Coding System Code Date Office Visit, Est Pt., Level 3 CPT-4 23795 Jun 02, 2015 URINALYSIS, AUTO, W/O SCOPE CPT-4 86588 Jun 02, 2015 Vital Signs Date/Time: Jun 02, 2015 Temperature 98.1 F Weight 226.3 lbs Height 65 in BMI 37.65 Index Blood Pressure Diastolic 72 mmHg Blood Pressure Systolic 118 mmHg Cardiac Monitoring Heart Rate 120 bpm Results Name Result Date Reference Range Unit Abnormality Flag UA LONG DIP (IN HOUSE) ----VINCENT neg [id number] ----NIT neg [id number] ----SG >=1.030 20150602 ----KET neg [id number] ----RAMU neg [id number] ----GLU neg [id number] ----Odor no [id number] ----pH 5.5 20150602 ----BLO neg [id number] ----URO 0.2 20150602 ----Protein neg [id number] ----Lot # [id number] ----Exp date [id number] ----Clarity clear [id number] ----Color yellow [id number] Summary Purpose eClinicalWorks Submission
--- OUTSIDE RECORDS SUMMARY | 2017-04-26 10:38 | XMS REPORT ---
Author Author KATIE JEFFRIES Organization [facility] Address [address] [place] [address] Care Team Providers Care Travel Registered Nurse Pacu Name Role Phone KATIE JEFFRIES Unavailable PROBLEMS Type Condition ICD9-CM Code [id number] Code Onset Dates Condition Status SNOMED Code Problem Mild sleep apnea G47.30 Active 95654452 Problem Osteoarthritis of acromioclavicular joint M19.019 Active 539994196 Problem Low magnesium levels E83.42 Active 184692835 Problem Tear of left infraspinatus tendon, subsequent encounter S46.812D Active 6367076 Problem Low vitamin D level E55.9 Active 677231121 Problem Tear of left supraspinatus tendon, subsequent encounter S46.812D Active 037855870 Problem Controlled substance agreement signed Z79.899 Active 998462076 Problem Hypertriglyceridemia E78.1 Active 562766643 Problem Hyperlipidemia E78.5 Active 70664050 Problem COPD (chronic obstructive pulmonary disease) with acute bronchitis J44.0 Active 051514254467226 Problem Left anterior shoulder pain M25.512 Active 48957985 Problem Peripheral neuropathy G62.9 Active 63611694 Problem Anxiety associated with depression F41.8 Active 097277888 Problem Type 2 diabetes mellitus with unspecified complications E11.8 Active 74805512 Problem Chest pain, unspecified R07.9 Active 27908014 Problem Dyspnea R06.00 Active 959954888 Problem Vitamin D deficiency E55.9 Active 32757048 Problem Excessive daytime sleepiness G47.19 Active 495543483437 Problem COPD (chronic obstructive pulmonary disease) J44.9 Active 64402634 Problem GERD (gastroesophageal reflux disease) K21.9 Active 463322768 Problem Essential hypertension I10 Active 94596307 Problem Insomnia G47.00 Active 229851578 Problem Mixed hyperlipidemia E78.2 Active 135142351 Problem Tobacco abuse Z72.0 Active 60617996 Problem Low back pain M54.5 Active 249969437 Problem Other chronic pain G89.29 Active 43933859 ALLERGIES No Information SOCIAL HISTORY Never Assessed PLAN OF CARE VITAL SIGNS MEDICATIONS Medication Instructions Dosage Frequency Start Date End Date Duration Status Fenofibrate 54 MG Orally Once a day 1 tablet with a meal 24h May, Active RESULTS No Results PROCEDURES No Known [...]
--- OUTSIDE RECORDS SUMMARY | 2017-04-26 10:38 | XMS REPORT ---
Author Author NICOLE CLINE Organization [employer] Address Unknown Phone Unavailable Care Team Providers Care Program Coordinator Name Role Phone NICOLE CLINE CP Unavailable Allergies No Known Allergies Problems Problem Type Condition Code Onset Dates Condition Status Problem Insomnia G47.00 Active Problem Anxiety associated with depression F41.8 Active Problem Muscle spasm of calf M62.831 Active Problem COPD (chronic obstructive pulmonary disease) J44.9 Active Problem Type 2 diabetes mellitus with unspecified complications E11.8 Active Problem Essential hypertension I10 Active Problem Diabetes E11.9 Active Problem Other chronic pain G89.29 Active Problem GERD (gastroesophageal reflux disease) K21.9 Active Problem Peripheral neuropathy G62.9 Active Problem Low back pain M54.5 Active Medications No Known Medications Results No Known Results Summary Purpose [employer] Submission
--- OUTSIDE RECORDS SUMMARY | 2017-04-26 10:38 | XMS REPORT ---
Author Author KATIE JEFFRIES Organization [facility] Address [address] [place] [address] Care Team Providers Care Conflicts Analyst Name Role Phone KATIE JEFFRIES Unavailable PROBLEMS Type Condition ICD9-CM Code VLG81-IP Code Onset Dates Condition Status SNOMED Code Problem Mild sleep apnea G47.30 Active 00711698 Problem Osteoarthritis of acromioclavicular joint M19.019 Active 661354730 Problem Low magnesium levels E83.42 Active 124173937 Problem Tear of left infraspinatus tendon, subsequent encounter S46.812D Active 3378828 Problem Low vitamin D level E55.9 Active 195491117 Problem Tear of left supraspinatus tendon, subsequent encounter S46.812D Active 087652043 Problem Controlled substance agreement signed Z79.899 Active 280866132 Problem Hypertriglyceridemia E78.1 Active 379411630 Problem Hyperlipidemia E78.5 Active 67278748 Problem COPD (chronic obstructive pulmonary disease) with acute bronchitis J44.0 Active 191525934501382 Problem Left anterior shoulder pain M25.512 Active 72446706 Problem Peripheral neuropathy G62.9 Active 60519525 Problem Anxiety associated with depression F41.8 Active 711930945 Problem Type 2 diabetes mellitus with unspecified complications E11.8 Active 53527153 Problem Chest pain, unspecified R07.9 Active 32431336 Problem Dyspnea R06.00 Active 540976230 Problem Vitamin D deficiency E55.9 Active 13539211 Problem Excessive daytime sleepiness G47.19 Active 552420474353 Problem COPD (chronic obstructive pulmonary disease) J44.9 Active 22900744 Problem GERD (gastroesophageal reflux disease) K21.9 Active 708065235 Problem Essential hypertension I10 Active 60454206 Problem Insomnia G47.00 Active 762547834 Problem Mixed hyperlipidemia E78.2 Active 228586314 Problem Tobacco abuse Z72.0 Active 63116631 Problem Low back pain M54.5 Active 796329527 Problem Other chronic pain G89.29 Active 37115959 ALLERGIES No Information SOCIAL HISTORY Never Assessed PLAN OF CARE VITAL SIGNS MEDICATIONS Medication Instructions Dosage Frequency Start Date End Date Duration Status Onglyza 5 mg Orally Once a day 1 [...]
[2017-04-26 10:40] VITALS: BP 168/90
--- OUTSIDE RECORDS SUMMARY | 2017-04-26 10:40 | XMS REPORT ---
Author Author KATIE JEFFRIES Organization [employer] Address Unknown Phone Unavailable Care Team Providers Care Rn Acute Name Role Phone KATIE JEFFRIES CP Unavailable [...] Instructions Start Date End Date Status Dosage Tradjenta [facility] [address]-53 5 mg Orally Once a day September 11, 2015 1 tablet Paroxetine HCl [facility] [address]-11 20 mg Orally 2 times a day September 18, 2015 1 tablet Benazepril HCl [facility] [address]-12 5 mg Orally Once a day October 09, 2015 1 tablet Results No Known Results Summary Purpose [employer] Submission
--- OUTSIDE RECORDS SUMMARY | 2017-04-26 10:40 | XMS REPORT ---
Author Author KATIE JEFFRIES Organization [facility] Address [address] [place] [address] Care Team Providers Care Mechanical Designer Name Role Phone KATIE JEFFRIES Unavailable PROBLEMS Type Condition ICD9-CM Code STT48-CT Code Onset Dates Condition Status SNOMED Code Problem Mild sleep apnea G47.30 Active 65029683 Problem Osteoarthritis of acromioclavicular joint M19.019 Active 316787406 Problem Low magnesium levels E83.42 Active 721013848 Problem Tear of left infraspinatus tendon, subsequent encounter S46.812D Active 1884855 Problem Low vitamin D level E55.9 Active 699438772 Problem Tear of left supraspinatus tendon, subsequent encounter S46.812D Active 896128651 Problem Controlled substance agreement signed Z79.899 Active 290028975 Problem Hypertriglyceridemia E78.1 Active 103259419 Problem Hyperlipidemia E78.5 Active 24538601 Problem COPD (chronic obstructive pulmonary disease) with acute bronchitis J44.0 Active 956561974896177 Problem Left anterior shoulder pain M25.512 Active 36885162 Problem Peripheral neuropathy G62.9 Active 23156429 Problem Anxiety associated with depression F41.8 Active 172612805 Problem Type 2 diabetes mellitus with unspecified complications E11.8 Active 17106784 Problem Chest pain, unspecified R07.9 Active 34067579 Problem Dyspnea R06.00 Active 513063758 Problem Vitamin D deficiency E55.9 Active 47061766 Problem Excessive daytime sleepiness G47.19 Active 377235354715 Problem COPD (chronic obstructive pulmonary disease) J44.9 Active 25547717 Problem GERD (gastroesophageal reflux disease) K21.9 Active 045511065 Problem Essential hypertension I10 Active 57314258 Problem Insomnia G47.00 Active 977549618 Problem Mixed hyperlipidemia E78.2 Active 776983253 Problem Tobacco abuse Z72.0 Active 16744620 Problem Low back pain M54.5 Active 139800378 Problem Other chronic pain G89.29 Active 99292068 ALLERGIES Unknown Allergies SOCIAL HISTORY No smoking Hx information available PLAN OF CARE VITAL SIGNS MEDICATIONS Unknown Medications RESULTS No Results PROCEDURES No Known procedures IMMUNIZATIONS No Known Immunizations
--- OUTSIDE RECORDS SUMMARY | 2017-04-26 10:42 | XMS REPORT ---
Author Author BRYAN MARTEL [facility] [employer] Address Unknown Phone Unavailable Care Team Providers Care Development Assistant Name Role Phone BRYAN MARTEL CP Unavailable Allergies No Known Allergies Problems Problem Type Condition Code Onset Dates Condition Status Problem Low vitamin D level E55.9 Active Problem Controlled substance agreement signed Z79.899 Active Problem Low magnesium levels E83.42 Active Problem Dyspnea R06.00 Active Problem Insomnia G47.00 Active Problem Shortness of breath R06.02 Active Problem COPD (chronic obstructive pulmonary disease) J44.9 Active Problem Excessive daytime sleepiness G47.19 Active Problem Hyperlipidemia E78.5 Active Problem Mixed hyperlipidemia E78.2 Active Problem Chest pain, unspecified R07.9 Active Problem Hypertriglyceridemia E78.1 Active Problem Other chronic pain G89.29 Active Problem Low back pain M54.5 Active Problem Anxiety associated with depression F41.8 Active Problem GERD (gastroesophageal reflux disease) K21.9 Active Problem Type 2 diabetes mellitus with unspecified complications E11.8 Active Problem Tobacco abuse Z72.0 Active Problem Peripheral neuropathy G62.9 Active Problem Nausea and vomiting, unspecified intactability, vomiting of unspecified type R11.2 Active Problem Essential hypertension I10 Active Problem Upper respiratory tract infection, unspecified type J06.9 Active Medications Medication Code System Code Instructions Start Date End Date Status Dosage Tradjenta [facility] [address]-40 5 MG Orally Once a day September 11, 2015 1 tablet Atorvastatin Calcium [facility] [address]-08 20 mg Orally Once a day at HS September 18, 2015 1 tablet Paroxetine HCl [facility] [address]-96 20 mg Orally 2 times a day September 18, 2015 1 tablet in the morning Metformin HCl [facility] [address]-60 1000 MG Orally Twice a day May 05, 2015 1 tablet with meals Vitamin D-3 [facility] 227[address] 5000 UNIT Orally once daily Jun 10, 2015 1 tablet Ranitidine HCl [facility] 12044175415 150 MG Orally Twice a day 1 capsule Gemfibrozil [facility] [address]-28 600 MG Orally Twice a day August 18, 2015 1 tablet Metamucil [facility] 10267-89174 0.52 GM Orally 2 times a day 2 capsules with 8 ounces of liquid Metoprolol Tartrate [facility] [address]-54 25 MG Orally Once a day September 11, 2015 1 tablet with food PredniSONE [facility] [address]-98 40 mg Orally Once a day October 05, 2015 October 09, 2015 1 tablet Xanax [facility] [address]-45 0.5 MG Orally Twice a day and 1/2 at HS 1 tablet Advair Diskus [facility] [address]-58 100-50 MCG/DOSE Inhalation Twice a day October 05, 2015 1 puff Albuterol Sulfate [facility] [address]-51 (2.5 MG/3ML) 0.083% Inhalation Three times a day PRN 3 ml Hyzaar [facility] [address]-70 50-12.5 MG Orally Once a day September 11, 2015 1 tablet Results No Known Results Summary Purpose [employer]ClinicalWorks Submission
--- OUTSIDE RECORDS SUMMARY | 2017-04-26 10:42 | XMS REPORT ---
Author Author KATIE JEFFRIES Organization [facility] Address [address] [place] [address] Care Team Providers Care Driver Sales Name Role Phone KATIE JEFFRIES Unavailable PROBLEMS Type Condition ICD9-CM Code CTE38-VG Code Onset Dates Condition Status SNOMED Code Problem COPD (chronic obstructive pulmonary disease) J44.9 Active 98984523 Problem Controlled substance agreement signed Z79.899 Active 541916422 Problem Insomnia G47.00 Active 820448383 Problem Mixed hyperlipidemia E78.2 Active 473106029 Problem Anxiety associated with depression F41.8 Active 796029329 Problem Hyperlipidemia E78.5 Active 02163471 Problem Chest pain, unspecified R07.9 Active 66502885 Problem Hypertriglyceridemia E78.1 Active 454988900 Problem Bronchitis J40 Active 28486692 Problem Vitamin D deficiency E55.9 Active 88662138 Problem Low back pain M54.5 Active 201189585 Problem Other chronic pain G89.29 Active 18475704 Problem GERD (gastroesophageal reflux disease) K21.9 Active 164328851 Problem Dyspnea R06.00 Active 410715944 Problem Shortness of breath R06.02 Active 892867450 Problem Hospital discharge follow-up Z09 Active 988452190 Problem Excessive daytime sleepiness G47.19 Active 565498407673 Problem Type 2 diabetes mellitus with unspecified complications E11.8 Active 73367805 Problem Tobacco abuse Z72.0 Active 12214855 Problem Peripheral neuropathy G62.9 Active 37066182 Problem Essential hypertension I10 Active 22425375 Problem Low vitamin D level E55.9 Active 773930341 Problem Low magnesium levels E83.42 Active 399151145 Problem Nausea and vomiting, unspecified intactability, vomiting of unspecified type R11.2 Active 29432734 Problem Upper respiratory tract infection, unspecified type J06.9 Active 20373618 ALLERGIES Unknown Allergies SOCIAL HISTORY No smoking Hx information available PLAN OF CARE VITAL SIGNS MEDICATIONS Medication Instructions Dosage Frequency Start Date End Date Duration Status Ranitidine HCl 150 MG Orally Twice a day 1 capsule 12h Active Metoprolol Tartrate 25 MG Orally Once a day 1 tablet with food 24h Sep, Active RESULTS No Results PROCEDURES No Known procedures IMMUNIZATIONS No Known Immunizations
--- OUTSIDE RECORDS SUMMARY | 2017-04-26 10:42 | XMS REPORT ---
Author Author KATIE JEFFRIES Organization [employer] Address Unknown Phone Unavailable Care Team Providers Care Piece Jobber Name Role Phone KATIE JEFFRIES CP Unavailable Allergies, Adverse Reactions, Alerts Substance Reaction Event Type Cymbalta suicidal thoughts Drug Allergy Crestor Info Not Available Drug Allergy Problems Problem Type Condition Code Onset Dates Condition Status Assessment Hospital discharge follow-up Z09 Active Assessment COPD (chronic obstructive pulmonary disease) J44.9 Active Problem Upper respiratory tract infection, unspecified type J06.9 Active Assessment Essential hypertension I10 Active Problem Low vitamin D level E55.9 Active Assessment Type 2 diabetes mellitus with [...] Instructions Start Date End Date Status Dosage Ranitidine HCl [facility] 60277307337 150 MG Orally Twice a day 1 capsule Tradjenta [facility] [address]-95 5 MG Orally Once a day September 11, 2015 1 tablet Advair Diskus [facility] [address]-41 100-50 MCG/DOSE Inhalation Twice a day October 05, 2015 1 puff Gemfibrozil [facility] [address]-30 600 MG Orally Twice a day August 18, 2015 1 tablet Metoprolol Tartrate [facility] [address]-42 25 MG Orally Once a day September 11, 2015 1 tablet with food Vitamin D-3 [facility] 96[address]2749 5000 UNIT Orally once daily Jun 10, 2015 1 tablet Paroxetine HCl [facility] [address]-09 20 mg Orally 2 times a day September 18, 2015 1 tablet in the morning QC Ibuprofen [facility] [address]-25 200 MG Orally every 6 hrs Jun 02, 2015 1 tablet as needed Atorvastatin Calcium [facility] [address]-68 20 mg Orally Once a day at HS September 18, 2015 1 tablet Benazepril HCl [facility] [address]-81 5 MG Orally Once a day October 09, 2015 as directed Metamucil [facility] 08476-[address]45 0.52 GM Orally Three times a day 2 capsules with 8 ounces of liquid Albuterol Sulfate HFA [facility] [address]-19 108 (90 Base) MCG/ACT Inhalation every 4 hrs Jun 02, 2015 2 puffs as needed Zofran [facility] [address]-32 4 MG Orally 2 times a day Jul 02, 2015 1 tablet Flexeril [facility] 0 10 oral 3 times a day not defined Xanax [facility] [address]-39 0.5 MG Orally Twice a day and 1/2 at HS 1 tablet Albuterol Sulfate [facility] [address]-72 (2.5 MG/3ML) 0.083% Inhalation Three times a day PRN 3 ml Metformin HCl [facility] [address]-38 1000 MG Orally Twice a day May 05, 2015 1 tablet with meals PredniSONE [facility] [address]-06 40 mg Orally Once a day October 05, 2015 October 09, 2015 1 tablet Procedures Procedure Coding System Code Date Office Visit, Est Pt., Level 3 CPT-4 13477 October 09, 2015 VENIPUNCT, ROUTINE* CPT-4 59798 October 09, 2015 URINALYSIS, AUTO, W/O SCOPE CPT-4 61711 October 09, 2015 COMPREHEN METABOLIC PANEL CPT-4 12484 October 09, 2015 COMPLETE CBC W/AUTO DIFF WBC CPT-4 00277 October 09, 2015 No Charge CPT-4 71870 October 09, 2015 URINE CULTURE/COLONY COUNT CPT-4 24564 October 09, 2015 Vital Signs Date/Time: October 09, 2015 Temperature 98.2 F Weight 207.0 lbs Height 65 in BMI 34.44 Index Blood Pressure Diastolic 82 mmHg Blood Pressure Systolic 124 mmHg Cardiac Monitoring Heart Rate 90 bpm Results Name Result Date Reference Range Unit Abnormality Flag CULTURE, URINE ----Urine Culture, Routine Final report [id number] ----Result 1 Klebsiella pneumoniae [id number] A CMP ----Globulin, Total 3.5 73024793 1.5-4.5 g/dL ----eGFR If Africn Am 62 21390240 >59 mL/min/1.73 ----eGFR If NonAfricn Am 54 72633401 >59 mL/min/1.73 L ----Albumin, Serum 4.4 48382577 3.5-5.5 g/dL ----Sodium, Serum 135 78646272 134-144 mmol/L ----Protein, Total, Serum 7.9 07800953 6.0-8.5 g/dL ----BUN/Creatinine Ratio 23 82795183 9-23 ----Calcium, Serum 9.6 15366764 8.7-10.2 mg/dL ----AST (SGOT) 15 20151009 0-40 IU/L ----Glucose, Serum 124 01782980 65-99 mg/dL H ----Alkaline Phosphatase, S 71 23431637 39-117 IU/L ----Bilirubin, Total 0.2 98993934 0.0-1.2 mg/dL ----Creatinine, Serum 1.15 25947716 0.57-1.00 mg/dL H ----A/G Ratio 1.3 01368629 1.1-2.5 ----BUN 26 14879731 6-24 mg/dL H ----Carbon Dioxide, Total 20 20151009 18-29 mmol/L ----ALT (SGPT) 23 20151009 0-32 IU/L ----Potassium, Serum 5.2 22587487 3.5-5.2 mmol/L ----Chloride, Serum 96 44316516 97-108 mmol/L L ROUTINE VENIPUNCTURE CBC ----MCHC 33.0 59414646 31.5-35.7 g/dL ----MCH 29.3 13631991 26.6-33.0 pg ----Platelets 742 44951075 150-379 x10E3/uL H ----RDW 16.6 97954371 12.3-15.4 % H ----Immature Granulocytes 5 06060674 % ----Immature Grans (Abs) 0.9 80895877 0.0-0.1 x10E3/uL H ----Lymphs 11 72905891 % ----Monocytes 4 29080809 % ----Neutrophils 79 88204253 % ----Neutrophils (Absolute) 16.3 33929843 1.4-7.0 x10E3/uL H ----Hematocrit 34.8 52139048 34.0-46.6 % ----Lymphs (Absolute) 2.1 35222149 0.7-3.1 x10E3/uL ----MCV 89 50928603 79-97 fL ----RBC 3.93 63827455 3.77-5.28 x10E6/uL ----Eos 1 20454067 % ----Basos 0 17380746 % ----Hemoglobin 11.5 27386259 11.1-15.9 g/dL ----Baso (Absolute) 0.0 78563534 0.0-0.2 x10E3/uL ----WBC 20.2 63251940 3.4-10.8 x10E3/uL HH ----Monocytes(Absolute) 0.7 19146647 0.1-0.9 x10E3/uL ----Eos (Absolute) 0.1 59864746 0.0-0.4 x10E3/uL Summary Purpose [employer]ClinicalWorks Submission
--- OUTSIDE RECORDS SUMMARY | 2017-04-26 10:42 | XMS REPORT ---
Author Author NICOLE CLINE Organization [employer] Address Unknown Phone Unavailable Care Team Providers Care Manager Business Information Name Role Phone NICOLE CLINE CP Unavailable Allergies No Known Allergies Problems Problem Type Condition Code Onset Dates Condition Status Assessment Type 2 diabetes mellitus with unspecified complications E11.8 Active Problem Insomnia G47.00 Active Problem COPD (chronic obstructive pulmonary disease) J44.9 Active Problem Essential hypertension I10 Active Problem Peripheral neuropathy G62.9 Active Problem Type 2 diabetes mellitus with unspecified complications E11.8 Active Problem GERD (gastroesophageal reflux disease) K21.9 Active Problem Anxiety associated with depression F41.8 Active Problem Low back pain M54.5 Active Problem Other chronic pain G89.29 Active Medications No Known Medications Procedures Procedure Coding System Code Date ASSAY THYROID STIM HORMONE CPT-4 69861 Jun 09, 2015 ASSAY OF VITAMIN D CPT-4 66525 Jun 09, 2015 ASSAY OF MAGNESIUM CPT-4 42972 Jun 09, 2015 RBC SED RATE, AUTOMATED CPT-4 56377 Jun 09, 2015 COMPREHEN METABOLIC PANEL CPT-4 72595 Jun 09, 2015 LIPID PANEL CPT-4 76471 Jun 09, 2015 VENIPUNCT, ROUTINE* CPT-4 29441 Jun 09, 2015 COMPLETE CBC W/AUTO DIFF WBC CPT-4 06957 Jun 09, 2015 Results Name Result Date Reference Range Unit Abnormality Flag ROUTINE VENIPUNCTURE Summary Purpose [employer]ClinicalWorks Submission
--- OUTSIDE RECORDS SUMMARY | 2017-04-26 10:42 | XMS REPORT ---
Author Author KATIE JEFFRIES Organization [employer] Address Unknown Phone Unavailable Care Team Providers Care University Librarian Name Role Phone KATIE JEFFRIES CP Unavailable Allergies, Adverse Reactions, Alerts Substance Reaction Event Type Cymbalta suicidal thoughts Drug Allergy Crestor Info Not Available Drug Allergy Problems Problem Type Condition Code Onset Dates Condition Status Assessment Oliguria R34 Active Assessment Excessive daytime sleepiness G47.19 Active Assessment Type 2 diabetes mellitus with unspecified complications E11.8 Active Assessment COPD (chronic obstructive pulmonary disease) J44.9 Active Assessment Jaundice R17 Active Assessment Diaphoresis R61 Active Problem Nausea and vomiting, unspecified intactability, vomiting of unspecified type R11.2 Active Assessment Dysuria R30.0 Active Problem Upper respiratory tract infection, unspecified type J06.9 Active Assessment Other chronic pain G89.29 Active Problem Low vitamin D level E55.9 Active Problem Controlled substance agreement signed Z79.899 Active Problem Low magnesium levels E83.42 Active Problem Dyspnea R06.00 Active Problem Shortness of breath R06.02 Active Problem Insomnia G47.00 Active Problem COPD (chronic obstructive pulmonary disease) J44.9 Active Problem Excessive daytime sleepiness G47.19 Active Assessment Dyspnea R06.00 Active Problem Hyperlipidemia E78.5 Active Problem Mixed [...] Active Problem Peripheral neuropathy G62.9 Active Problem Essential hypertension I10 Active Medications Medication Code System Code Instructions Start Date End Date Status Dosage PredniSONE [facility] [address]-64 20 mg Orally Once a day October 02, 2015 October 09, 2015 1 tablet Advair Diskus [facility] [address]-35 100-50 MCG/DOSE Inhalation Twice a day August 18, 2015 1 puff Albuterol Sulfate HFA [facility] [address]-99 108 (90 Base) MCG/ACT Inhalation every 4 hrs Jun 02, 2015 2 puffs as needed Paroxetine HCl [facility] [address]-62 20 mg Orally 2 times a day September 18, 2015 1 tablet in the morning Zofran [facility] [address]-50 4 MG Orally 2 times a day Jul 02, 2015 1 tablet Trazodone HCl [facility] [address]-30 50 MG Orally Once a day 1 tablet at bedtime as needed Atorvastatin Calcium [facility] [address]-80 20 mg Orally Once a day September 18, 2015 1 tablet Metamucil [facility] 57005-70558 0.52 GM Orally Three times a day 2 capsules with 8 ounces of liquid Metformin HCl [facility] [address]-10 1000 MG Orally Twice a day May 05, 2015 1 tablet with meals QC Ibuprofen [facility] [address]-38 200 MG Orally every 6 hrs Jun 02, 2015 1 tablet as needed Flexeril [facility] 0 10 oral 3 times a day not defined Hyzaar [facility] [address]-13 50-12.5 MG Orally Once a day September 11, 2015 1 tablet Metoprolol Tartrate [facility] [address]-26 25 MG Orally Once a day September 11, 2015 1 tablet with food Ciprofloxacin HCl [facility] [address]-34 500 MG Orally Twice a day October 02, 2015 October 12, 2015 1 tablet Xanax [facility] [address]-26 0.5 MG Orally Three times a day 1 tablet Ranitidine HCl [facility] 56184859200 150 MG Orally Twice a day 1 capsule Vitamin D-3 [facility] [address]-95 5000 UNIT Orally once daily Jun 10, 2015 1 tablet Albuterol Sulfate [facility] [address]-95 (2.5 MG/3ML) 0.083% Inhalation Three times a day PRN 3 ml Tradjenta [facility] [address]-36 5 MG Orally Once a day September 11, 2015 1 tablet Gemfibrozil [facility] [address]-68 600 MG Orally Twice a day August 18, 2015 1 tablet Procedures Procedure Coding System Code Date COMPLETE CBC W/AUTO DIFF WBC CPT-4 07610 October 02, 2015 COMPREHEN METABOLIC PANEL CPT-4 69494 October 02, 2015 MEASURE BLOOD OXYGEN LEVEL CPT-4 26584 October 02, 2015 URINE CULTURE/COLONY COUNT CPT-4 88829 October 02, 2015 DRUG SCREEN NON TLC DEVICES CPT-4 78051 October 02, 2015 URINALYSIS, AUTO, W/O SCOPE CPT-4 63286 October 02, 2015 ACUTE HEPATITIS PANEL CPT-4 69737 October 02, 2015 Office Visit, Est Pt., Level 3 CPT-4 85225 October 02, 2015 VENIPUNCT, ROUTINE* CPT-4 08480 October 02, 2015 Vital Signs Date/Time: October 02, 2015 Temperature 98.0 F Weight 222.3 lbs Height 65 in Oximetry on room air:93 % Blood Pressure Diastolic 78 mmHg Blood Pressure Systolic 122 mmHg Cardiac Monitoring Heart Rate 84 bpm BMI 36.99 Index Results Name Result Date Reference Range Unit Abnormality Flag ROUTINE VENIPUNCTURE URINE DRUG SCREEN (IN HOUSE) ----MDMA Negative 20151002 ----TCA Negative 20151002 ----BENZO Positive 20151002 ----OPIATE Negative 20151002 ----THC Negative 20151002 ----MTD Negative 20151002 ----AMPH Negative 20151002 ----BAR Negative 20151002 ----PCP Negative 20151002 ----MAMP Positive 20151002 ----OXY Negative 20151002 ----Lot # [id number] 20151002 ----Exp date 20151002 ----Control + 20151002 ----COCAINE Negative 20151002 UA LONG DIP (IN HOUSE) ----RAMU negative 20151002 ----GLU negative 20151002 ----SG 1.025 20151002 ----KET negative 20151002 ----pH 5.5 20151002 ----Protein 2+ 20151002 ----BLO 1+ 20151002 ----VINCENT trace 20151002 ----Color dark yellow 20151002 ----Odor yes 20151002 ----Exp date 20151002 ----URO 0.2 20151002 ----NIT negative 20151002 ----Clarity very cloudy 20151002 ----Lot # [id number] 20151002 Summary Purpose [employer] Submission
--- OUTSIDE RECORDS SUMMARY | 2017-04-26 10:42 | XMS REPORT ---
Author Author KATIE JEFFRIES Organization [facility] Address [address] [place] [address] Care Team Providers Care Pot Puller Name Role Phone KATIE JEFFRIES Unavailable PROBLEMS Type Condition ICD9-CM Code [id number] Code Onset Dates Condition Status SNOMED Code Problem Mild sleep apnea G47.30 Active 45861158 Problem Osteoarthritis of acromioclavicular joint M19.019 Active 752535191 Problem Tear of left infraspinatus tendon, subsequent encounter S46.812D Active 2963538 Problem Low vitamin D level E55.9 Active 331193836 Problem Tear of left supraspinatus tendon, subsequent encounter S46.812D Active 354118692 Problem Controlled substance agreement signed Z79.899 Active 539219349 Problem Type 2 diabetes mellitus with unspecified complications E11.8 Active 16719529 Problem Hyperlipidemia E78.5 Active 58640243 Problem Dyspnea R06.00 Active 805502795 Problem Hypertriglyceridemia E78.1 Active 966942718 Problem Chronic renal insufficiency N18.9 Active 907103248 Problem COPD (chronic obstructive pulmonary disease) with acute bronchitis J44.0 Active 863014580895946 Problem Essential hypertension I10 Active 64194894 Problem Peripheral neuropathy G62.9 Active 66404524 Problem Anxiety associated with depression F41.8 Active 620501795 Problem Excessive daytime sleepiness G47.19 Active 456854590427 Problem Chest pain, unspecified R07.9 Active 84161347 Problem Left anterior shoulder pain M25.512 Active 78846562 Problem Vitamin D deficiency E55.9 Active 55462871 Problem GERD (gastroesophageal reflux disease) K21.9 Active 774954358 Problem Low back pain M54.5 Active 830213636 Problem Insomnia G47.00 Active 140033289 Problem COPD (chronic obstructive pulmonary disease) J44.9 Active 40897146 Problem Tobacco abuse Z72.0 Active 19767139 Problem Low magnesium levels E83.42 Active 833481744 Problem Other chronic pain G89.29 Active 39389981 Problem Mixed hyperlipidemia E78.2 Active [id number] ALLERGIES No Information SOCIAL HISTORY Never Assessed PLAN OF CARE VITAL SIGNS MEDICATIONS Unknown [...]
--- OUTSIDE RECORDS SUMMARY | 2017-04-26 10:42 | XMS REPORT ---
Author Author KATIE JEFFRIES Organization [facility] Address [address] [place] [address] Care Team Providers Care Stencil Typist Name Role Phone KATIE JEFFRIES Unavailable PROBLEMS Type Condition ICD9-CM Code [id number] Code Onset Dates Condition Status SNOMED Code Problem Mild sleep apnea G47.30 Active 90945576 Problem Osteoarthritis of acromioclavicular joint M19.019 Active 788795726 Problem Low magnesium levels E83.42 Active 578820586 Problem Tear of left infraspinatus tendon, subsequent encounter S46.812D Active 4874716 Problem Low vitamin D level E55.9 Active 959436897 Problem Tear of left supraspinatus tendon, subsequent encounter S46.812D Active 680061336 Problem Controlled substance agreement signed Z79.899 Active 919060428 Problem Hypertriglyceridemia E78.1 Active 420740976 Problem Hyperlipidemia E78.5 Active 09578250 Problem COPD (chronic obstructive pulmonary disease) with acute bronchitis J44.0 Active 129799177682470 Problem Left anterior shoulder pain M25.512 Active 71526396 Problem Peripheral neuropathy G62.9 Active 77082210 Problem Anxiety associated with depression F41.8 Active 664577855 Problem Type 2 diabetes mellitus with unspecified complications E11.8 Active 33346647 Problem Chest pain, unspecified R07.9 Active 92965500 Problem Dyspnea R06.00 Active 707618805 Problem Vitamin D deficiency E55.9 Active 12341125 Problem Excessive daytime sleepiness G47.19 Active 357234966754 Problem COPD (chronic obstructive pulmonary disease) J44.9 Active 54322595 Problem GERD (gastroesophageal reflux disease) K21.9 Active 240569775 Problem Essential hypertension I10 Active 92702308 Problem Insomnia G47.00 Active 001727184 Problem Mixed hyperlipidemia E78.2 Active 066786720 Problem Tobacco abuse Z72.0 Active 58223619 Problem Low back pain M54.5 Active 912041928 Problem Other chronic pain G89.29 Active 79622752 ALLERGIES No Information SOCIAL HISTORY Never Assessed [...]
--- OUTSIDE RECORDS SUMMARY | 2017-04-26 10:43 | XMS REPORT ---
Author Author KATIE JEFFRIES Organization [facility] Address [address] [place] [address] Care Team Providers Care Director Of Consulting Services Name Role Phone KATIE JEFFRIES Unavailable PROBLEMS Type Condition ICD9-CM Code [id number] Code Onset Dates Condition Status SNOMED Code Problem Type 2 diabetes mellitus with unspecified complications E11.8 Active 38489126 Problem Controlled substance agreement signed Z79.899 Active 293046250 Problem Low magnesium levels E83.42 Active 787403556 Problem 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 Active 19735122 Problem Osteoarthritis of acromioclavicular joint M19.019 Active 585175732 Problem Chronic renal insufficiency N18.9 Active 682635679 Problem Mild sleep apnea G47.30 Active 00821806 Problem Hyperlipidemia E78.5 Active 21151823 Problem Mixed hyperlipidemia E78.2 Active 944815993 Problem Vitamin D deficiency E55.9 Active 98951138 Problem Excessive daytime sleepiness G47.19 Active 605461993201 Problem Anxiety associated with depression F41.8 Active 386206291 Problem Peripheral neuropathy G62.9 Active 62227871 Problem Tear of left infraspinatus tendon, subsequent encounter S46.812D Active 0406087 Problem Tear of left supraspinatus tendon, subsequent encounter S46.812D Active 779158078 Problem COPD (chronic obstructive pulmonary disease) J44.9 Active 74968962 Problem GERD (gastroesophageal reflux disease) K21.9 Active 344638954 Problem Essential hypertension I10 Active 13396066 Problem Low back pain M54.5 Active 243147372 Problem Insomnia G47.00 Active 527813559 Problem Other chronic pain G89.29 Active 02556929 ALLERGIES No Information SOCIAL HISTORY Never Assessed PLAN OF CARE VITAL SIGNS MEDICATIONS Medication Instructions Dosage Frequency Start Date End Date Duration Status Metoprolol Tartrate 25 MG Orally Once a day 1 tablet with food 24h 90 days Active Fenofibrate 54 MG Orally Once a day 1 tablet with a meal 24h May, 90 days Active Benazepril HCl 5 mg Orally Once a day 1 tablet 24h Sep, Active Singulair 10 mg Orally Once a day 1 tablet in the evening 24h 90 days Active RESULTS No Results PROCEDURES [...]
--- OUTSIDE RECORDS SUMMARY | 2017-04-26 10:43 | XMS REPORT ---
Author Author KATIE JEFFRIES Organization [facility] Address [address] [place] [address] Care Team Providers Care Pharmacy Laboratory Technician Name Role Phone KATIE JEFFRIES Unavailable PROBLEMS Type Condition ICD9-CM Code [id number] Code Onset Dates Condition Status SNOMED Code Problem Type 2 diabetes mellitus with unspecified complications E11.8 Active 27456376 Problem Controlled substance agreement signed Z79.899 Active 503978833 Problem Low magnesium levels E83.42 Active 398450333 Problem 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 Active 37449314 Problem Osteoarthritis of acromioclavicular joint M19.019 Active 570525407 Problem Chronic renal insufficiency N18.9 Active 874777998 Problem Mild sleep apnea G47.30 Active 80079908 Problem Hyperlipidemia E78.5 Active 57737689 Problem Mixed hyperlipidemia E78.2 Active 184560058 Problem Vitamin D deficiency E55.9 Active 12089996 Problem Excessive daytime sleepiness G47.19 Active 002351177592 Problem Anxiety associated with depression F41.8 Active 847595968 Problem Peripheral neuropathy G62.9 Active 15589417 Problem Tear of left infraspinatus tendon, subsequent encounter S46.812D Active 9340852 Problem Tear of left supraspinatus tendon, subsequent encounter S46.812D Active 888561122 Problem COPD (chronic obstructive pulmonary disease) J44.9 Active 55660076 Problem GERD (gastroesophageal reflux disease) K21.9 Active 372916394 Problem Essential hypertension I10 Active 19788083 Problem Low back pain M54.5 Active 372656359 Problem Insomnia G47.00 Active 770550088 Problem Other chronic pain G89.29 Active 46360040 ALLERGIES Substance Reaction Event Type Date Status Cymbalta suicidal thoughts Drug Allergy October, Active Crestor Unknown Drug Allergy October, Active SOCIAL HISTORY Never Assessed PLAN OF CARE Activity Details Follow Up 3 Months Reason: VITAL SIGNS Height 65 in 2016-10-17 Weight 220.3 lbs 2016-10-17 Temperature 98.5 degrees Fahrenheit 2016-10-17 Heart Rate 88 bpm 2016-10-17 Respiratory Rate 20 2016-10-17 Oximetry 91 % 2016-10-17 BMI 36.66 kg/m2 2016-10-17 Blood pressure systolic 124 mmHg 2016-10-17 Blood pressure diastolic 76 mmHg 2016-10-17 MEDICATIONS Medication Instructions Dosage Frequency Start Date End Date Duration Status PredniSONE 20 mg Orally Once a day 1 tablet 24h October, October, 05 days Active Singulair 10 mg Orally Once a day 1 tablet in the evening 24h 30 days Active Nicotine 21 MG/24HR Transdermal Once a day 1 patch to skin 24h Sep, October, 30 day(s) Active Januvia 50 mg Orally Once a day 1 tablet 24h Aug, 30 days Active ReliOn Blood Glucose Test - as directed Sep, Active Vitamin D-3 5000 UNIT Orally once daily 1 tablet 24h May, October, 90 days Active Fish Oil 1200 MG Orally Once a day 1 capsule 24h Active Ranitidine HCl 150 MG Orally Twice a day 1 capsule 12h 90 days Active Advair Diskus 250-50 MCG/DOSE Inhalation Twice a day 1 puff 12h Sep, 12 months Active Fenofibrate 54 MG Orally Once a day 1 tablet with a meal 24h May, 30 days Active Baclofen 10 mg 0.5 TABLET WITH FOOD OR MILK THREE TIMES A DAY NEEDED ORALLY 28 DAYS 28 Active Xanax 0.5 MG Orally Twice a day and 1/2 at HS 1 tablet 28 days Active Hydrocodone-Acetaminophen 5-325 MG Orally every 8 hrs as needed for pain 1 tablet as needed Sep, October, 28 days Active Albuterol Sulfate HFA 108 (90 Base) MCG/ACT Inhalation every 4 hrs 2 puffs as needed 4h May, 12 months Active Metamucil 0.52 GM Orally Three times a day 2 capsules with 8 ounces of liquid 8h Active Metformin HCl 1000 MG Orally Twice a day 1 tablet with meals 12h Apr, 30 days Active Doxycycline Hyclate 100 mg Orally every 12 hrs 1 capsule 12h October, October, 07 days Active Paroxetine HCl 20 mg Orally 2 times a day 1 tablet 12h Sep, 90 days Active Metoprolol Tartrate 25 MG Orally Once a day 1 tablet with food 24h 30 days Active QC Ibuprofen 200 MG Orally every 6 hrs 1 tablet as needed 6h May, Active Spiriva HandiHaler 18 MCG Inhalation Once a day 1 capsule 24h Nov, 30 days Active Zofran 8 MG Orally every 8 hours, PRN 1 tablet Jun, 05 days Active Aspirin 325 MG Orally Once a day 1 tablet 24h Active Benazepril HCl 5 mg Orally Once a day 1 tablet 24h Sep, 30 days Active Albuterol Sulfate (2.5 MG/3ML) 0.083% Inhalation Three times a day PRN 3 ml 30 days Active RESULTS Name Result Date Reference Range Xray : Chest (IN HOUSE) 2016-10-17 PROCEDURES Procedure Date Ordered Result Body Site MEASURE BLOOD OXYGEN LEVEL October 17, 2016 CHEST X-RAY October 17, 2016 IMMUNIZATIONS No Known Immunizations MEDICAL (GENERAL) [...]
--- OUTSIDE RECORDS SUMMARY | 2017-04-26 10:43 | XMS REPORT ---
Author Author NICOLE CLINE [employer] Address Unknown Phone Unavailable Care Team Providers Care Educational Specialist Name Role Phone NICOLE CLINE CP Unavailable Allergies No Known Allergies Problems Problem Type Condition Code Onset Dates Condition Status Problem Peripheral neuropathy G62.9 Active Problem Type 2 diabetes mellitus with unspecified complications E11.8 Active Problem Essential hypertension I10 Active Problem Controlled substance agreement signed Z79.899 Active Problem Low magnesium levels E83.42 Active Problem Mixed hyperlipidemia E78.2 Active Problem Nausea and vomiting, unspecified intactability, vomiting of unspecified type R11.2 Active Problem Tobacco abuse Z72.0 Active Problem Low vitamin D level E55.9 Active Problem Upper respiratory tract infection, unspecified type J06.9 Active Problem Anxiety associated with depression F41.8 Active Problem GERD (gastroesophageal reflux disease) K21.9 Active Problem COPD (chronic obstructive pulmonary disease) J44.9 Active Problem Other chronic pain G89.29 Active Problem Insomnia G47.00 Active Problem Low back pain M54.5 Active Medications No Known Medications Results No Known Results Summary Purpose eClinicalWorks Submission
--- OUTSIDE RECORDS SUMMARY | 2017-04-26 10:43 | XMS REPORT ---
Author Author KATIE JEFFRIES Organization [facility] Address [address] [place] [address] Care Team Providers Care Financial Aid Coordinator Name Role Phone KATIE JEFFRIES Unavailable PROBLEMS Type Condition ICD9-CM Code [id number] Code Onset Dates Condition Status SNOMED Code Problem Mild sleep apnea G47.30 Active 44916920 Problem Osteoarthritis of acromioclavicular joint M19.019 Active 196367450 Problem Tear of left infraspinatus tendon, subsequent encounter S46.812D Active 2802606 Problem Low vitamin D level E55.9 Active 155942829 Problem Tear of left supraspinatus tendon, subsequent encounter S46.812D Active 414639649 Problem Controlled substance agreement signed Z79.899 Active 670054105 Problem Type 2 diabetes mellitus with unspecified complications E11.8 Active 06468383 Problem Hyperlipidemia E78.5 Active 96629103 Problem Dyspnea R06.00 Active 259326960 Problem Hypertriglyceridemia E78.1 Active 467212013 Problem Chronic renal insufficiency N18.9 Active 499492503 Problem COPD (chronic obstructive pulmonary disease) with acute bronchitis J44.0 Active 995168649916300 Problem Essential hypertension I10 Active 57981730 Problem Peripheral neuropathy G62.9 Active 02561448 Problem Anxiety associated with depression F41.8 Active 627063216 Problem Excessive daytime sleepiness G47.19 Active 779777810283 Problem Chest pain, unspecified R07.9 Active 51686954 Problem Left anterior shoulder pain M25.512 Active 78457957 Problem Vitamin D deficiency E55.9 Active 93738366 Problem GERD (gastroesophageal reflux disease) K21.9 Active 505928614 Problem Low back pain M54.5 Active 878389644 Problem Insomnia G47.00 Active 525439834 Problem COPD (chronic obstructive pulmonary disease) J44.9 Active 36431715 Problem Tobacco abuse Z72.0 Active 38159760 Problem Low magnesium levels E83.42 Active 178108854 Problem Other chronic pain G89.29 Active 54494544 Problem Mixed hyperlipidemia E78.2 Active 657297071 ALLERGIES No Information SOCIAL HISTORY Never Assessed [...]
--- OUTSIDE RECORDS SUMMARY | 2017-04-26 10:43 | XMS REPORT ---
Author Author NICOLE CLINE [employer] Address Unknown Phone Unavailable Care Team Providers Care Sewage Plant Attendant Name Role Phone NICOLE CLINE CP Unavailable Allergies, Adverse Reactions, Alerts Substance Reaction Event Type N.K.D.A. Info Not Available Non Drug Allergy Problems Problem Type Condition Code Onset Dates Condition Status Problem Insomnia G47.00 Active Problem Anxiety associated with depression F41.8 Active Problem Muscle spasm of calf M62.831 Active Problem Type 2 diabetes mellitus with unspecified complications E11.8 Active Assessment Insomnia G47.00 Active Problem Essential hypertension I10 Active Assessment COPD (chronic obstructive pulmonary disease) J44.9 Active Problem Diabetes E11.9 Active Problem Other chronic pain G89.29 Active Problem GERD (gastroesophageal reflux disease) K21.9 Active Problem Peripheral neuropathy G62.9 Active Problem Low back pain M54.5 Active Assessment GERD (gastroesophageal reflux disease) K21.9 Active Assessment Other chronic pain G89.29 Active Assessment Muscle spasm of calf M62.831 Active Assessment Anxiety associated with depression F41.8 Active Assessment Essential hypertension I10 Active Assessment Type 2 diabetes mellitus with unspecified complications E11.8 Active Assessment Low back pain M54.5 Active Assessment Diabetes E11.9 Active Assessment Peripheral neuropathy G62.9 Active Problem COPD (chronic obstructive pulmonary disease) J44.9 Active Medications Medication Code System Code Instructions Start Date End Date Status Dosage Hydrochlorothiazide [facility] [address]-95 12.5 MG Orally Once a day May 05, 2015 1 tablet Lisinopril [facility] [address]-50 20 MG Orally 2 times a day 1 tablet Flexeril NDC 0 10 oral 3 times a day not defined Albuterol Sulfate [facility] [address]-14 (2.5 MG/3ML) 0.083% Inhalation Three times a day 3 ml Omeprazole [facility] [address]-95 20 MG Orally Once a day 1 capsule Hydrochlorothiazide [facility] [address]-38 12.5 MG Orally Once a day May 05, 2015 1 tablet Cymbalta [facility] [address]-39 60 MG Orally Once a day May 05, 2015 1 capsule Xanax [facility] [address]-13 0.5 MG Orally Three times a day 1 tablet Metformin HCl [facility] [address]-27 1000 MG Orally Twice a day May 05, 2015 1 tablet with meals Trazodone HCl [facility] [address]-95 50 MG Orally Once a day 1 tablet at bedtime as needed Hydrocodone-Acetaminophen [facility] [address]-68 5-325 MG Orally 2 times a day Jun 04, 2015 2 tablet as needed Procedures Procedure Coding System Code Date Office Visit, New Pt., Level 4 CPT-4 28391 May 05, 2015 GLYCATED HEMOGLOBIN TEST CPT-4 82949 May 05, 2015 Vital Signs Date/Time: May 05, 2015 Temperature 98.0 F Weight 227 lbs Height 65 in BMI 37.77 Index Blood Pressure Diastolic 72 mmHg Blood Pressure Systolic 142 mmHg Cardiac Monitoring Heart Rate 66 bpm Results Name Result Date Reference Range Unit Abnormality Flag A1C (IN HOUSE) ----A1C IN HOUSE 7.0% [id number] 4.30 - 5.6 % ----Previous A1c none available [id number] ----Lot # [id number] ----Exp date Jan [id number] Summary Purpose eClinicalWorks Submission
[2017-04-26] MEDS ORDERED: ceFAZolin 1 GM/NS 50 ML IVPB IV ONE ×2 (10:45)
[2017-04-26] MEDS ORDERED: ROPIVACAINE 5MG/ML 30ML VIAL ONE (11:30)
[2017-04-26] MEDS ORDERED: MIDAZOLAM 2 MG/2 ML (VERSED) VIAL ONE (11:31)
[2017-04-26] MEDS ORDERED: BUPIVACAINE 0.25% 30 ML (SENSORCAINE) VIAL ONE (11:34)
--- NOTE | 2017-04-26 11:36 | Progress Note-Pre Operative ---
Pre-Operative Progress Note H&P Reviewed The H&P was reviewed, patient examined and no changes noted. Date Seen by Provider: Apr 26, 2017 Time Seen by Provider: 11:36 Date H&P Reviewed: Apr 26, 2017 Time H&P Reviewed: 11:36 Pre-Operative Diagnosis: left rotator cuff tear LORI ALICEA MD Apr 26, 2017 11:36
--- NOTE | 2017-04-26 11:37 | Progress Note-Post Operative ---
Post-Operative Progess Note Surgeon (s)/Meterman (s) Surgeon LORI ALICEA MD Meterman: Oscar Perez Pre-Operative Diagnosis left rotator cuff tear Post-Operative Diagnosis left rotator cuff tear and labral tear Procedure & Operative Findings Date of Procedure 04/26/17 Procedure Performed/Findings left shoulder arthroscopic acromioplasty, labral debridement and open rotator cuff repair Anesthesia Type GETA plus interscalene nerve block Estimated Blood Loss Estimated blood loss (mL): minimal Specimens/Packing Specimens Removed none Packing: none LORI ALICEA MD Apr 26, 2017 11:37
[2017-04-26] MEDS: LACTATED RINGERS 1,000 ML IV PRN ×2 (11:44→13:32)
[2017-04-26] MEDS ORDERED: oxyCODONE/APAP 5/325MG (PERCOCET 5) TABLET PO PRN (11:45)
[2017-04-26] MEDS ORDERED: FAMOTIDINE 20MG/2ML IV (PEPCID) IV ONE (11:45)
[2017-04-26] MEDS ORDERED: ONDANSETRON 4 MG/2 ML (SDV) Z0FRAN IV ONE (11:45)
[2017-04-26] MEDS ORDERED: SEVOFLURANE (ULTANE) 15 ML INHAL SOLN ONE ×4 (11:56→13:52)
[2017-04-26] MEDS ORDERED: LACTATED RINGERS 1,000 ML IV ONE (11:56)
[2017-04-26] MEDS ORDERED: ATRACURIUM 50 MG/5 ML (TRACRIUM) IV ONE ×2 (11:56→12:01)
[2017-04-26] MEDS ORDERED: fentaNYL INJECTION 100 MCG/2 ML AMP ONE (11:56)
[2017-04-26] MEDS ORDERED: HURRICAINE EXT TUBE (BENZOCAINE) ONE (11:56)
[2017-04-26] MEDS ORDERED: DEXAMETHASONE 10 MG/ML (DECADRON) 1 ML VIAL ONE (11:56)
[2017-04-26] MEDS ORDERED: LIDOCAINE PF 2% 5 ML (XYLOCAINE) VIAL ONE (11:56)
[2017-04-26] MEDS ORDERED: proPOfol 200 MG/20 ML (DIPRIVAN) VIAL IV ONE (11:56)
--- NOTE | 2017-04-26 12:02 | Anesthesia-Peripheral Nerve Bl ---
Procedure Start/Stop Time Date of Procedure: Apr 26, 2017 Start Time: 11:45 Referring Physician: keerthi Stop Time: 12:00 Peripheral Nerve Block Peripheral Nerve Blockade Risk/Benefits/Alternatives discussed, including IV injection leading to complications or seizures, nerve irritation or damage, pneumothorax, total spinal anesthesia, injection, and/or bleeding. Side Confirmed: LEFT (interscalene) Indication: Req Pain Mgmt by Surgeon Specifically requested for management of pain by: Physician requested: Keerthi Patient Condition Vital Signs Vital Signs Date Time Temp Pulse Resp B/P (MAP) Pulse Ox O2 Delivery O2 Flow Rate FiO2 04/26/17 10:40 97.1 113 20 168/90 93 Room Air Patient Condition: Awake Procedure Prepartation: Chlorhexidine Position: Supine Needle (s) Size: 22g 2" (stimiplex) Technique: Injection through needle Sedation Given: Midazolam (2mg) Injectate: ropivacaine Concentration %: 0.5 Volume (ml): 27 Epinephrine used: No Narrative Injection was made incrementally with constant monitoring. Aspiration every (mls): 5 Blood Aspirated: No Pain on injection noted: No Normal Resistance on injection: Yes Events Events: None:easy well tolerated Sucess: Complete Patient Conditon Post Peripheral Nerve Block Post Peripheral Nerve Block Vital Signs: Blood Pressure: Systolic Diastolic Heart Rate Blood Pressure Systolic: 168 Blood Pressure Diastolic: 90 Pulse Rate (adult): 113 NOELLE GROVE CRNA Apr 26, 2017 12:02
[2017-04-26] MEDS ORDERED: PHENYLEPHRINE 100 MCG/ML 10 ML (ANESTHESIA) SYR ONE (13:13)
[2017-04-26] MEDS ORDERED: ATROPINE INJ 0.4 MG/ML SDV ONE (13:21)
[2017-04-26] MEDS ORDERED: LABETALOL HCL 20 MG/4 ML VIAL ONE (14:01)
[2017-04-26] MEDS: LABETALOL HCL 20 MG/4 ML VIAL IV PRN ×2 (14:11→14:31)
[2017-04-26] MEDS ORDERED: morphine INJ 10 MG/ML 1ML (SYR OR VIAL) IVP PRN ×2 (14:15)
[2017-04-26 14:55] VITALS: BP 136/77
[2017-04-26 15:45] VITALS: BP 137/76
[2017-04-26 15:46] VITALS: BP 137/76
--- NOTE | 2017-04-26 18:43 | OPERATIVE REPORT ---
DATE OF SERVICE: PREOPERATIVE DIAGNOSIS: Left rotator cuff tear. POSTOPERATIVE DIAGNOSES: 1. Left rotator cuff tear. 2. Left shoulder labral tear. PROCEDURES: 1. Left shoulder arthroscopic labral debridement. 2. Left shoulder arthroscopic acromioplasty. 3. Left shoulder open rotator cuff repair. SURGEON: Dr. Alicea. DATA PROCESSING SYSTEMS CONSULTANT: Oscar Perez who assisted throughout the procedure and closed the incisions. ANESTHESIA: General endotracheal by . ESTIMATED BLOOD LOSS: Minimal. DRAINS: None. COMPLICATIONS: None. POSTOPERATIVE PLAN: He is passive range of motion and sling wear for 4 weeks. The patient was transferred to the recovery room, awake and in stable condition. STATEMENT OF MEDICAL NECESSITY: The patient is a 57-year-old female with complaints of right shoulder pain and weakness. An MRI confirmed a full thickness supraspinatus tear. She tried rest activity modifications, anti-inflammatories without relief due to functional impairment and failure to improve with conservative measures, the patient elected to proceed with surgical intervention. Examination under anesthesia revealed forward elevation 170 degrees, external rotation of 85 degrees and internal rotation of 70 degrees. Arthroscopic findings demonstrated full thickness supraspinatus tear approximately 1 x 1 cm in size. There was a flap tear of the anterior labrum at the 9 o'clock position. No significant humeral head or chondral abnormalities were noted. Subacromial space demonstrated moderate bursitis with slope in the anterolateral acromion. PROCEDURE: After risks and benefits of procedure were discussed and questions were answered and informed consent was signed and placed on chart. The operative site was confirmed in the preoperative holding area and initialed by surgeon. The patient was then transferred to the operating room. After adequate levels of general endotracheal anesthetic were obtained, a time out was called confirming the operative site. Examination under anesthesia was performed with the above findings noted. Left shoulder and upper extremity were prepped and draped in the usual sterile fashion. The shoulder joint was injected with 3 mL of fluid as was the subacromial space. Standard posterior portal was placed. Under direct visualization, anterior portal was created in the interval between biceps subscapula and glenoid. The labrum was debrided with a shaver back to a stable edge. Scope was then redirected into the subacromial space. Lateral portal was created. A bursectomy was performed and the acromion was planed to a flat type 1 acromion. The lateral portal was then extended. The deltoid was split in line with its fibers leaving attached to the acromion. A bleeding bony bed was prepared just off the articular surface and a single corkscrew anchor was placed. A modified Merrill -- Edgardo repair was performed with an excellent repair obtained. No undue tension was noted on the repair side. The wound was copiously irrigated. The deltoid was repaired in side to side fashion using #2 FiberWire in [id number] interrupted fashion. The wound was further irrigated. A 2-0 Vicryl was used to reapproximate subcutaneous tissue and skin was closed with 4-0 nylon in running alternating horizontal mattress fashion. The portal sites were closed with 4-0 nylon in simple interrupted fashion. The shoulder incision site was infiltrated with plain Marcaine. A soft dressing and sling were applied. The patient was transferred to recovery room awake in stable condition. Job ID: [id number] DocumentID: [id number] Dictated Date: 04/26/2017 14:04:41 Manager Cleaning Date: 04/26/2017 18:42:40 Dictated By: LORI ALICEA MD
== END 2017-04-26 16:10 | disposition home or self-care (01) ==
LOC: SDC 10:29
PROVIDERS: ATTEND Orthopaedic Surgery
DX: M75.102 Unspecified rotator cuff tear or rupture of left shoulder, not specified as traumatic (principal); E11.40 Type 2 diabetes mellitus with diabetic neuropathy, unspecified; J44.9 Chronic obstructive pulmonary disease, unspecified; F32.9 Major depressive disorder, single episode, unspecified; I10 Essential (primary) hypertension; M79.7 Fibromyalgia; E03.9 Hypothyroidism, unspecified; E78.5 Hyperlipidemia, unspecified; M06.9 Rheumatoid arthritis, unspecified; F41.9 Anxiety disorder, unspecified; K21.9 Gastro-esophageal reflux disease without esophagitis; Z87.891 Personal history of nicotine dependence; Z79.84 Long term (current) use of oral hypoglycemic drugs; Z79.899 Other long term (current) drug therapy; Z79.82 Long term (current) use of aspirin; G47.33 Obstructive sleep apnea (adult) (pediatric)
CPT/HCPCS: 82962

== ENCOUNTER → 2017-09-01 | Outpatient (CLI) | payer MEDICAID ==
[~2017-09-01] MED LIST changes: +ACHD5005 PO; -HYDR-3812 PO; +LOSA1TAB20; -LOSA1TAB69
--- NOTE | 2017-09-01 19:21 | Diagnostic Imaging Report ---
INDICATION: Palpable lump in the right axilla. EXAMINATION: Sonographic interrogation of the right axilla was performed. FINDINGS: No solid or cystic mass is identified. There is a normal-sized lymph node in the right axilla, measuring 1.4 x 0.6 cm. IMPRESSION: Unremarkable right axillary ultrasound. No suspicious sonographic abnormality is seen. Dictated by: Dictated on workstation # [id number]
== END ==
LOC: RAD 12:17
PROVIDERS: ATTEND Nurse Practitioner Family
DX: R59.0 Localized enlarged lymph nodes (principal); Z79.899 Other long term (current) drug therapy

== ENCOUNTER → 2017-10-26 | Outpatient (CLI) | payer MEDICAID ==
[~2017-10-26] MED LIST changes: -METF1000 PO; +METF10002 PO; -METF500T4 PO; +METF500T5 PO
--- NOTE | 2017-10-26 16:26 | Diagnostic Imaging Report ---
INDICATION: Chronic renal insufficiency. FINDINGS: The right kidney measures 10.9 x 4.4 x 4.9 cm and the left kidney measures 11.5 x 6.1 x 5.7 cm. The cortical thickness and echogenicity appears normal. No calculi are seen. There is no hydronephrosis. Bilateral ureteral jets are visualized within the bladder. IMPRESSION: Unremarkable renal and bladder ultrasound. Dictated by: Dictated on workstation # [id number]
== END ==
LOC: RAD 13:20
PROVIDERS: ATTEND Nurse Practitioner Family
DX: E11.22 Type 2 diabetes mellitus with diabetic chronic kidney disease (principal); N18.9 Chronic kidney disease, unspecified
CPT/HCPCS: 76770

== ENCOUNTER 2018-02-19 14:41 | Observation (INO) | payer MEDICAID ==
[~2018-02-19] VITALS: Ht 152.4 cm; Wt 103.9 kg
[~2018-02-19 14:41] MED LIST changes: -ALBU2.5V4 IN; +ALBU2.5V4 NEB; -BENA5TAB2 PO; +BENA5TAB3 PO; -GEMF600T3 PO; +GEMF600T4 PO; +METF-397 PO; +METF-399 PO; -METF10002 PO; -METF500T5 PO; +TRAZ-189 PO; -TRAZ-28 PO
[2018-02-19] MEDS ORDERED: NS IV 1000 ML 1,000 ML ONE (15:35)
[2018-02-19] MEDS ORDERED: HYDR-3812 PO (15:45)
[2018-02-19] MEDS ORDERED: LIRA0.6P SC (15:45)
[2018-02-19] MEDS ORDERED: POLY255P PO (15:45)
[2018-02-19] MEDS ORDERED: PARO20TA5 PO (15:45)
[2018-02-19] MEDS ORDERED: INSU100I29 SC (15:45)
[2018-02-19] MEDS ORDERED: GABA-488 PO (15:45)
[2018-02-19] MEDS ORDERED: TORS20TA3 PO (15:45)
[2018-02-19] MEDS ORDERED: ALPR0.5T7 PO (15:45)
[2018-02-19] MEDS ORDERED: INSU100I14 SC (15:45)
[2018-02-19 15:52] LABS: ABG BASE EXCESS 3.9 MMOL/L (-2.5-2.5); ABG OXYGEN SATURATION 96 % (94-100); ABG PCO2 41 MMHG (35-45); ABG PH 7.44 (7.37-7.43); ABG PO2 80 MMHG (79-93)
[2018-02-19 15:58] LABS: ALLENS TEST POSITIVE; INSPIRED O2 2 L; PATIENT TEMP 98.9; VENTILATOR NO
[2018-02-19] MEDS ORDERED: CATHETER FLUSH 10 ML SYR IV PRN (16:00)
[2018-02-19] MEDS ORDERED: PIPERACILLIN/TAZO 4.5 GM/NS 100 ML IV NR ×2 (16:00)
[2018-02-19] MEDS ORDERED: RT-ALBUTEROL/IPRATROPIUM 3 ML (DUONEB) VIAL IH PRN (16:00)
[2018-02-19 16:10] LABS: BASOPHILS % (AUTO) 0 % (0-10); EOSINOPHILS # (AUTO) 0.3 10^3/uL (0.0-0.3); EOSINOPHILS % (AUTO) 2 % (0-10); HEMATOCRIT 38 % (35-52); LYMPHOCYTES # (AUTO) 3.1 X 10^3 (1.0-4.0); LYMPHOCYTES % (AUTO) 25 % (12-44); MEAN CORPUSCULAR HEMOGLOBIN 26 PG (25-34); MEAN CORPUSCULAR HGB CONC 32 G/DL (32-36); MEAN CORPUSCULAR VOLUME 80 FL (80-99); MEAN PLATELET VOLUME 10.8 FL (7.4-10.4); MONOCYTES # (AUTO) 1.2 X 10^3 (0.0-1.0); MONOCYTES % (AUTO) 10 % (0-12); NEUTROPHILS # (AUTO) 7.8 X 10^3 (1.8-7.8); NEUTROPHILS % (AUTO) 63 % (42-75); PLATELET COUNT 464 10^3/uL (130-400); RED BLOOD COUNT 4.71 10^6/uL (4.35-5.85); WHITE BLOOD COUNT 12.5 10^3/uL (4.3-11.0)
[2018-02-19] MEDS ORDERED: FENO160T12 PO (16:17)
--- NOTE | 2018-02-19 16:21 | Diagnostic Imaging Report ---
Indication: Dyspnea Portable AP upright view of the chest is obtained with comparison made to study of 10/27/2016. FINDINGS: Heart size and pulmonary vascularity are within normal limits, and the lungs are clear, bilaterally. IMPRESSION: Unremarkable chest. Dictated by: Dictated on workstation # [id number]
[2018-02-19 16:31] LABS: ALBUMIN 4.1 GM/DL (3.2-4.5); BILIRUBIN,TOTAL 0.2 MG/DL (0.1-1.0); CALCIUM 9.6 MG/DL (8.5-10.1); CREATININE SERUM 1.56 MG/DL (0.60-1.30); MAGNESIUM 1.8 MG/DL (1.8-2.4); PHOSPHORUS 3.7 MG/DL (2.3-4.7); TOTAL PROTEIN 8.4 GM/DL (6.4-8.2)
[2018-02-19] MEDS ORDERED: FERR325T5 PO (16:32)
[2018-02-19 16:44] LABS: BILIRUBIN,URINE NEGATIVE (NEGATIVE); CLARITY,URINE CLEAR; COLOR,URINE YELLOW; GLUCOSE, URINE (UA) NEGATIVE (NEGATIVE); KETONES,URINE NEGATIVE (NEGATIVE); LEUKOCYTE ESTERASE ,URINE 1+ (NEGATIVE); NITRITE,URINE NEGATIVE (NEGATIVE); PH,URINE 6 (5-9); PROTEIN,URINE NEGATIVE (NEGATIVE); UROBILINOGEN,URINE NORMAL (NORMAL)
[2018-02-19 16:46] VITALS: BP 131/73
[2018-02-19] MEDS: NS IV 1000 ML 1,000 ML IV SCH ×2 (16:48→23:45)
--- OUTSIDE RECORDS SUMMARY | 2018-02-19 16:51 | XMS REPORT ---
Author Author KATIE JEFFRIES Organization [facility] Address [address] [place] [address] Care Team Providers Care Progress Man Name Role Phone KATIE JEFFRIES Unavailable PROBLEMS Type Condition ICD9-CM Code SWN84-SQ Code Onset Dates Condition Status SNOMED Code Problem Other chronic pain G89.29 Active 55680354 Problem Insomnia G47.00 Active 890847491 Problem Type 2 diabetes mellitus with unspecified complications E11.8 Active 75242632 Problem Constipation by delayed colonic transit K59.01 Active 41888435 Problem Chronic kidney disease (CKD) stage G3b/A1, moderately decreased glomerular filtration rate (GFR) between 30-44 mL/min/1.73 square meter and albuminuria creatinine ratio less than 30 mg/g N18.3 Active 264284735 Problem Mixed hyperlipidemia E78.2 Active 135011605 Problem Controlled substance agreement signed Z79.899 Active 000277662 Problem 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 Active 03247841 Problem Vitamin D deficiency E55.9 Active 20538072 Problem Peripheral neuropathy G62.9 Active 13033849 Problem Essential hypertension I10 Active 49588822 Problem Osteoarthritis of acromioclavicular joint M19.019 Active 615427103 Problem COPD (chronic obstructive pulmonary disease) J44.9 Active 82778860 Problem Anxiety associated with depression F41.8 Active 502825774 Problem GERD (gastroesophageal reflux disease) K21.9 Active 819806540 ALLERGIES No Information ENCOUNTERS Encounter Location Date Diagnosis [facility] [id number], [place] [address] Jan, [facility] [address], [place] [address] Jan, Type 2 diabetes mellitus with unspecified complications E11.8 [facility] [id number], [place] [address] Jan, [facility] [address], [place] [address] Jan, Other chronic pain G89.29 and Anxiety associated with depression F41.8 [facility] [id number], [place] [address] Jan, [facility] [id number] [place] [address] 80252- 0239 Dec, [place] [id number] [place] [address] 54764- 8705 Dec, Type 2 diabetes mellitus with unspecified complications E11.8 ; Peripheral neuropathy G62.9 ; Constipation by delayed colonic transit K59.01 ; Chronic kidney disease (CKD) stage G3b/A1, moderately decreased glomerular filtration rate (GFR) between 30-44 mL/min/1.73 square meter and albuminuria creatinine ratio less than 30 mg/g N18.3 ; Osteoarthritis of acromioclavicular joint M19.019 ; Anxiety associated with depression F41.8 and 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 [facility] [id number] [place] [address] 46938- 5174 Dec, [place] [id number] [place] [address] 76501- 0862 Dec, Type 2 diabetes mellitus with unspecified complications E11.8 [facility] [facility] [address], [place] [address] Dec, [facility] [facility] [id number] [place] [address] 05370- 6723 Dec, Type 2 diabetes mellitus with unspecified complications E11.8 [facility] [id number] [place] [address] 63301- 8402 Dec, Type 2 diabetes mellitus with unspecified complications E11.8 [facility] [id number], [place] [address] 6688 Dec, [facility] [id number] [place] [address] 48[address] Dec, Type 2 diabetes mellitus with unspecified complications E11.8 [facility] [address], [place] [address] 3025 Dec, [facility] [id number], [place] [address] 9244 Dec, [facility] [id number] [place] [address] 85115- 5555 Dec, [facility] [address], [place] [address] 8973 Dec, [facility] [id number] [place] [address] 34205- 2720 Dec, [facility] [id number], [place] [address] 8191 Dec, Other chronic pain G89.29 and Anxiety associated with depression F41.8 [facility] [id number], [place] [address] 2236 Dec, Type 2 diabetes mellitus with unspecified complications E11.8 [facility] [id number], [place] [address] 6147 Nov, [facility] [id number], [place] [address] 9078 Nov, [facility] [id number], [place] [address] 0314 Nov, [facility] [id number], [place] [address] 3184 Nov, [facility] [id number], [place] [address] 9067 Nov, Type 2 diabetes mellitus with unspecified complications E11.8 [facility] [address], [place] [address] 0407 Nov, [facility] [id number], [place] [address] 6535 Nov, Type 2 diabetes mellitus with unspecified complications E11.8 [facility] [id number], [place] [address] 4422 11 Nov, 2017 Other chronic pain G89.29 and Anxiety associated with depression F41.8 [facility] [id number], [place] [address] 08 Nov, 2017 Chronic renal insufficiency N18.9 [facility] [id number], [place] [address] 5[address] 07 Nov, 2017 Other chronic pain G89.29 [facility] [id number], [place] [address] 9[address] Nov, Type 2 diabetes mellitus with unspecified complications E11.8 [facility] [id number], [place] [address] 3749 October, [facility] [id number], [place] [address] 8473 October, [facility] [id number], [place] [address] 3505 October, Type 2 diabetes mellitus with unspecified complications E11.8 [facility] [id number], [place] [address] 1077 October, [facility] [id number], [place] [address] 9938 October, [facility] [id number], [place] [address] 6101 October, Type 2 diabetes mellitus with unspecified complications E11.8 [facility] [id number], [place] [address] 7848 October, [facility] [id number], [place] [address] 1699 October, [facility] [id number], [place] [address] 1241 October, Type 2 diabetes mellitus with unspecified complications E11.8 [facility] [id number] [place] [address] 71200- 0936 October, Type 2 diabetes mellitus with unspecified complications E11.8 ; Essential hypertension I10 ; Chronic renal insufficiency N18.9 ; BMI 40.0-44.9, adult Z68.41 ; Other chronic pain G89.29 ; Anxiety associated with depression F41.8 and Right medial knee pain M25.561 [place] [address] 18[address]- 8091 October, GERD (gastroesophageal reflux disease) K21.9 and Anxiety associated with depression F41.8 [facility] [address] 02127- 0946 October, Anxiety associated with depression F41.8 [place] [address] 56877- 5797 Sep, [place] [address] 27129- 5465 Sep, GERD (gastroesophageal reflux disease) K21.9 and Anxiety associated with depression F41.8 [place] [address] 89495- 4856 Aug, [place] [id number] [place] [address] 77700- 8942 Aug, [facility] [id number] [place] [address] 50576 -3879 Aug, Acute recurrent maxillary sinusitis J01.01 [place] [id number] [place] [address] 73407- 6169 Aug, [place] [address] 13472- 5810 Aug, GERD (gastroesophageal reflux disease) K21.9 and Other chronic pain G89.29 [place] [address] 99359- 5068 Aug, [facility] [id number], [place] [address] Aug, [facility] [id number] [place] [address] 49651- 4809 Aug, Controlled substance agreement signed Z79.899 ; Type 2 diabetes mellitus with unspecified complications E11.8 ; Essential hypertension I10 ; Peripheral neuropathy G62.9 ; Anxiety associated with depression F41.8 ; COPD (chronic obstructive pulmonary disease) J44.9 ; GERD (gastroesophageal reflux disease) K21.9 ; Other chronic pain G89.29 ; Mixed hyperlipidemia E78.2 ; Injury of right ankle, initial encounter S99.911A ; Abnormal lung sounds R09.89 ; COPD exacerbation J44.1 and Enlarged lymph nodes in armpit R59.0 [facility] [id number] [place] [address] 43377- 3266 Aug, Anxiety associated with depression F41.8 and GERD ( gastroesophageal reflux disease) K21.9 [facility] [id number] [place] [address] 10013- 1135 Jul, Controlled substance agreement signed Z79.899 [facility] [id number] [place] [address] 83358- 2605 Jun, Anxiety associated with depression F41.8 and GERD ( gastroesophageal reflux disease) K21.9 [facility] [id number] [place] [address] 56925- 6583 May, Anxiety associated with depression F41.8 and GERD ( gastroesophageal reflux disease) K21.9 [facility] [id number] [place] [address] 44207- 7987 Apr, Mixed hyperlipidemia E78.2 [facility] [id number] [place] [address] 59543- 5699 Apr, Anxiety associated with depression F41.8 and GERD ( gastroesophageal reflux disease) K21.9 [facility] [id number] [place] [address] 05718- 4999 Apr, [place] [id number], [place] [address]- 5688 Apr, Type 2 diabetes mellitus with unspecified complications E11.8 [facility] [id number], [place] [address]- 9159 Apr, [place] [id number] [place] [address] 55446- 0678 Apr, Type 2 diabetes mellitus with unspecified complications E11.8 [facility] [facility] [id number] [place] [address] 64436- 3083 Apr, [facility] [id number] [place] [address] 26140- 3697 Mar, GERD (gastroesophageal reflux disease) K21.9 and Anxiety associated with depression F41.8 [facility] [id number] [place] [address] 27896- 9280 Mar, 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 [facility] [facility] [id number] [place] [address] 47489- 3349 Mar, Essential hypertension I10 ; Anxiety associated with depression F41.8 ; COPD (chronic obstructive pulmonary disease) J44.9 ; Mixed hyperlipidemia E78.2 ; Vitamin D deficiency E55.9 ; GERD (gastroesophageal reflux disease) K21.9 ; Type 2 diabetes mellitus with unspecified complications E11.8 ; Other chronic pain G89.29 and Chronic renal insufficiency N18.9 [place] [id number] [place] [address] 88072- 1666 Mar, Chronic renal insufficiency N18.9 [facility] [id number] [place] [address] 95644- 9997 Feb, GERD (gastroesophageal reflux disease) K21.9 and Type 2 diabetes mellitus with unspecified complications E11.8 [facility] [id number], [place] [address]- 9186 Feb, Anxiety associated with depression F41.8 and Tear of left supraspinatus tendon, subsequent encounter S46.812D [facility] [facility] [id number], [place] [address]- 1658 Jan, Pre-operative examination for internal medicine Z01.818 [facility] [id number] [place] [address] 86658- 3575 Jan, Anxiety associated with depression F41.8 and Left anterior shoulder pain M25.512 [facility] [facility] [id number] [place] [address] 12991- 8126 Jan, [facility] [facility] [id number] [place] [address] 31664- 7284 Jan, [facility] [facility] [id number] [place] [address] 57914- 3344 Jan, Type 2 diabetes mellitus with unspecified complications E11.8 ; Essential hypertension I10 ; Other chronic pain G89.29 ; GERD ( gastroesophageal reflux disease) K21.9 ; Anxiety associated with depression F41.8 ; Insomnia G47.00 ; Hypertriglyceridemia E78.1 ; Left anterior shoulder pain M25.512 and Tobacco abuse Z72.0 [facility] [facility] [id number] [place] [address] 18246- 6998 Dec, Anxiety associated with depression F41.8 and Tear of left supraspinatus tendon, subsequent encounter S46.812D [facility] [facility] [id number] [place] [address] 99153- 3612 Nov, [place] [id number] [place] [address] 51149- 4292 Nov, Anxiety associated with depression F41.8 and Tear of left supraspinatus tendon, subsequent encounter S46.812D [facility] [facility] [id number] [place] [address] 40886- 8003 05 Nov, 2016 Abnormal lung sounds R09.89 and COPD (chronic obstructive pulmonary disease) with acute bronchitis J44.0 [facility] [id number] [place] [address] 94272- 0561 Nov, [facility] [facility] [id number] [place] [address] 59948- 7188 October, COPD (chronic obstructive pulmonary disease) with acute bronchitis J44.0 ; Abnormal lung sounds R09.89 and Medication refill Z76.0 [facility] [id number] [place] [address] 91956- 1513 October, Anxiety associated with depression F41.8 [facility] [address] 07178- 6856 Sep, Nausea and vomiting, unspecified intactability, vomiting of unspecified type R11.2 [facility] [address] 40114- 2760 Sep, COPD (chronic obstructive pulmonary disease) J44.9 ; Tobacco abuse Z72.0 ; Tear of left supraspinatus tendon, subsequent encounter S46.812D and Type 2 diabetes mellitus with unspecified complications E11.8 [facility] [id number] [place] [address] 86476- 2739 Sep, [facility] [address] 88887- 9934 Aug, Left anterior shoulder pain M25.512 [facility] [facility] [id number] [place] [address] 91585- 9194 Aug, Left anterior shoulder pain M25.512 and Low back pain M54.5 [facility] [id number] [place] [address] 51839- 8548 Aug, [place] [id number] [place] [address] 10913- 2331 Aug, [place] [address] 62621- 8082 Aug, [facility] [place] [id number] [place] [address] 28269- 9356 Aug, [place] [address] [place] [address]- 1167 Aug, Type 2 diabetes mellitus with unspecified complications E11.8 [facility] [address] 53697- 9036 Aug, Type 2 diabetes mellitus with unspecified complications E11.8 ; Essential hypertension I10 ; Low back pain M54.5 ; COPD (chronic obstructive pulmonary disease) J44.9 ; Mixed hyperlipidemia E78.2 ; Left anterior shoulder pain M25.512 ; Dysuria R30.0 ; Anxiety associated with depression F41.8 ; Pneumonia of right lower lobe due to infectious organism J18.1 ; Vitamin D deficiency E55.9 and GERD (gastroesophageal reflux disease) K21.9 [place] [address] 58247- 6480 Aug, [place] [address] 38981- 8137 May, [place] [address] 67848- 8679 Apr, [place] [address] 63464- 0124 Apr, Type 2 diabetes mellitus with unspecified complications E11.8 ; Essential hypertension I10 ; Peripheral neuropathy G62.9 ; Other chronic pain G89.29 ; GERD (gastroesophageal reflux disease) K21.9 ; COPD ( chronic obstructive pulmonary disease) J44.9 ; Mixed hyperlipidemia E78.2 ; Low vitamin D level E55.9 ; Bronchitis J40 ; Fall, initial encounter W19.XXXA ; Right hip pain M25.551 ; Left upper arm injury, initial encounter S49.92XA and Anxiety associated with depression F41.8 [place] [address] 43229- 4284 Apr, [place] [address] 51024- 6358 Apr, [place] [address] 78297- 2339 Apr, [facility] [id number], [place] [address]- 2408 Mar, [facility] [address], [place] [address]- 1297 Feb, [facility] [address], [place] [address]- 7661 Feb, [facility] [address], [place] [address]- 2072 Jan, [facility] [address], [place] [address]- 9898 Jan, [facility] [address], [place] [address]- 1869 Jan, Type 2 diabetes mellitus with unspecified complications E11.8 ; Essential hypertension I10 and Vitamin D deficiency E55.9 [facility] [address], [place] [address]- 5564 Dec, Type 2 diabetes mellitus with unspecified complications E11.8 ; Essential hypertension I10 ; Other chronic pain G89.29 ; Anxiety associated with depression F41.8 ; Bronchitis J40 ; Vitamin D deficiency E55.9 and COPD (chronic obstructive pulmonary disease) J44.9 [facility] [address], [place] [address]- 3541 Nov, [facility] [id number], [place] [address]- 8750 October, [facility] [id number], [place] [address]- 5738 October, [facility] [id number], [place] [address]- 8131 October, [facility] [address], [place] [address]- 8815 October, Dysuria R30.0 ; Bronchitis J40 ; Anxiety associated with depression F41.8 and Type 2 diabetes mellitus with unspecified complications E11.8 [place] [address], [place] [address]- 9818 October, Chronic renal insufficiency N18.9 ; Elevated white blood cell count D72.829 and Frequent UTI N39.0 [facility] [id number] [place] [address] 79964- 8186 October, Chronic renal insufficiency N18.9 ; Elevated white blood cell count D72.829 and Frequent UTI N39.0 [facility] [id number] [place] [address] 18928- 9363 October, [facility] [id number] [place] [address] 73152- 4587 Sep, Type 2 diabetes mellitus with unspecified complications E11.8 ; Essential hypertension I10 ; COPD (chronic obstructive pulmonary disease ) J44.9 and Hospital discharge follow-up Z09 [facility] [id number] [place] [address] 45929- 5207 Sep, [place] [id number] [place] [address] 22443- 4972 Sep, Dyspnea R06.00 ; Other chronic pain G89.29 ; Dysuria R30.0 ; Diaphoresis R61 ; Jaundice R17 ; COPD (chronic obstructive pulmonary disease) J44.9 ; Type 2 diabetes mellitus with unspecified complications E11.8 ; Excessive daytime sleepiness G47.19 and Oliguria R34 [id number] [place] [address] 48422- 3052 Sep, [id number] [place] [address] 02782- 6788 Sep, Essential hypertension I10 ; Anxiety associated with depression F41.8 ; Mixed hyperlipidemia E78.2 ; Dyspnea R06.00 ; Shortness of breath R06.02 and Chest pain, unspecified R07.[id number] [place] [address] 98484- 7994 Sep, Chest pain R07.9 ; Hyperlipemia E78.5 ; Type 2 diabetes mellitus with unspecified complications E11.8 ; Essential hypertension I10 ; Other chronic pain G89.29 ; Anxiety associated with depression F41.8 ; COPD ( chronic obstructive pulmonary disease) J44.9 ; Low vitamin D level E55.9 ; Tobacco abuse Z72.0 ; Hypertriglyceridemia E78.1 and Abnormal laboratory test R89.9 [place] [id number] [place] [address] 41741- 3717 Aug, Pneumonia J18.9 ; Hypertriglyceridemia E78.1 ; COPD ( chronic obstructive pulmonary disease) J44.9 and Hyperlipidemia E78.5 [id number] [place] [address] 35459- 5777 Aug, Shortness of breath R06.02 ; Anxiety associated with depression F41.8 and Chest pain, unspecified R07.9 [place] [id number] [place] [address] 77056- 3174 Jul, [address] 58912- 7583 Jun, Anxiety associated with depression F41.8 ; Essential hypertension I10 ; Type 2 diabetes mellitus with unspecified complications E11.8 ; Mixed hyperlipidemia E78.2 ; COPD (chronic obstructive pulmonary disease ) J44.9 ; Insomnia G47.00 ; Controlled substance agreement signed Z79.899 ; Low magnesium levels E83.42 ; Low vitamin D level E55.9 ; Upper respiratory tract infection, unspecified type J06.9 ; Nausea and vomiting, unspecified intactability, vomiting of unspecified type R11.2 and Tobacco abuse Z72.0 [facility] [id number] [place] [address] 81494- 8340 May, Hyperlipemia E78.5 [place] [id number] [place] [address] 42073- 1516 May, [place] [id number] [place] [address] 86847- 1531 May, Type 2 diabetes mellitus with unspecified complications E11.8 [id number] [place] [address] 59791- 7295 May, [place] [id number] [place] [address] 15315- 3568 May, Anxiety associated with depression F41.8 ; Type 2 diabetes mellitus with unspecified complications E11.8 ; Essential hypertension I10 ; Peripheral neuropathy G62.9 ; Low back pain M54.5 ; Other chronic pain G89.29 ; GERD (gastroesophageal reflux disease) K21.9 ; Insomnia G47.00 ; COPD (chronic obstructive pulmonary disease) J44.9 ; URI (upper respiratory infection) J06.9 and Depression F32.[address] 50310- 3611 May, Low back pain M54.5 ; Anxiety about health F41.8 ; Generalized anxiety disorder F41.1 and Acute stress reaction F43.[address] 75899- 9446 May, [id number] [place] [address] 92308- 6352 Apr, Diabetes E11.9 ; Type 2 diabetes mellitus with unspecified complications E11.8 ; Essential hypertension I10 ; Peripheral neuropathy G62.9 ; Low back pain M54.5 ; Other chronic pain G89.29 ; GERD (gastroesophageal reflux disease) K21.9 ; Anxiety associated with depression F41.8 ; Muscle spasm of calf M62.831 ; Insomnia G47.00 and COPD (chronic obstructive pulmonary disease) J44.9 [id number] [place] [address] 58109- 9144 May, [id number] [place] [address] 65029- 9197 May, IMMUNIZATIONS No Known Immunizations SOCIAL HISTORY Never Assessed REASON FOR VISIT insulin PLAN OF CARE VITAL SIGNS MEDICATIONS Medication Instructions Dosage Frequency Start Date End Date Duration Status NovoLog Flexpen 100 UNIT/ML 22 units three times with meals October, 23 days Active Levemir Flexpen 100 UNIT/ML Subcutaneous 2 times a day 33 units twice a day 12h 10 May, 2018 23 days Active RESULTS No Results PROCEDURES No Known procedures INSTRUCTIONS MEDICATIONS ADMINISTERED No Known Medications MEDICAL (GENERAL) HISTORY Type Description Date Medical History Essential (primary) hypertension Medical History Diabetes Medical History Depression Medical History Chronic pain Medical History COPD Medical History Rheumatoid arthritis Medical History Diabetic neuropathy Medical History Fibromyalgia Medical History nodules on lung and liver Medical History mass on adrenal gland Medical History diverticulosis Medical History hyperthyroidism Medical History Hereditary and idiopathic neuropathy Medical History Tear of left supraspinatus tendon, subsequent encounter Medical History Tear of left infraspinatus tendon, subsequent encounter Medical History Lumbago Medical History mild sleep apnea w/cpap at home Surgical History section x 3 Surgical History hernia repair Surgical History hysterectomy Surgical History Heart cath 11/24/2015 Surgical History rotator cuff 04/24/17 Hospitalization History surgeries Hospitalization History Acute Renal Failure, Exacerbation COPD, Hyponatremia 10/02/15 Hospitalization History COPD x 3 days 03/14/2017
--- OUTSIDE RECORDS SUMMARY | 2018-02-19 16:51 | XMS REPORT ---
Author Author KATIE JEFFRIES Organization [facility] Address [address] [place] [address] Care Team Providers Care Ballast Inspector Name Role Phone KATIE JEFFRIES Unavailable PROBLEMS Type Condition ICD9-CM Code DFW84-DT Code Onset Dates Condition Status SNOMED Code Problem Other chronic pain G89.29 Active 47953284 Problem Insomnia G47.00 Active 353633426 Problem Type 2 diabetes mellitus with unspecified complications E11.8 Active 52321389 Problem Constipation by delayed colonic transit K59.01 Active 20487932 Problem Chronic kidney disease (CKD) stage G3b/A1, moderately decreased glomerular filtration rate (GFR) between 30-44 mL/min/1.73 square meter and albuminuria creatinine ratio less than 30 mg/g N18.3 Active 778347765 Problem Mixed hyperlipidemia E78.2 Active 761596913 Problem Controlled substance agreement signed Z79.899 Active 945101101 Problem 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 Active 64997661 Problem Vitamin D deficiency E55.9 Active 56201879 Problem Peripheral neuropathy G62.9 Active 24821123 Problem Essential hypertension I10 Active 01550581 Problem Osteoarthritis of acromioclavicular joint M19.019 Active 869370257 Problem COPD (chronic obstructive pulmonary disease) J44.9 Active 59063819 Problem Anxiety associated with depression F41.8 Active 152452608 Problem GERD (gastroesophageal reflux disease) K21.9 Active 421205923 ALLERGIES No Information ENCOUNTERS Encounter Location Date Diagnosis [facility] [id number] [address] Jan, [facility] [address] [address] Jan, Type 2 diabetes mellitus with unspecified complications E11.8 [facility] [id number] [address] Jan, [facility] [address] [address] Jan, Other chronic pain G89.29 and Anxiety associated with depression F41.8 [facility] [address] [address] Jan, [address] [facility] [id number] [place] [address] 80299- 0537 Dec, [id number] [place] [address] 42447- 2918 Dec, Type 2 diabetes mellitus with unspecified [...] and 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 [facility] [id number] [place] [address] 47353- 4058 Dec, [address] [facility] [id number] [place] [address] 63790- 5466 Dec, Type 2 diabetes mellitus with unspecified complications E11.8 [facility] [address] [address] Dec, [address] [facility] [id number] [place] [address] 36313- 2825 Dec, Type 2 diabetes mellitus with unspecified complications E11.8 [facility] [id number] [place] [address] 14420- 3167 Dec, Type 2 diabetes mellitus with unspecified complications E11.8 [facility] [address] [address] Dec, [address] [facility] [address] [address] 2671 Dec, Type 2 diabetes mellitus with unspecified complications E11.8 [facility] [address] [address] Dec, [facility] [address] [address] 9[address] Dec, [facility] [id number] [place] [address] 39537- 2767 Dec, [facility] [address] [address]- 6167 Dec, [facility] [id number] [place] [address] 78587- 9082 Dec, [facility] [address] [address] 7221 Dec, Other chronic pain G89.29 and Anxiety associated with depression F41.8 [facility] [address] [address] 7606 Dec, Type 2 diabetes mellitus with unspecified complications E11.8 [facility] [address] [address] 7478 Nov, [facility] [address] [address] 1181 Nov, [facility] [address] [address]- 0110 Nov, [facility] [address] [address]- 5197 Nov, [facility] [address] [address] 6753 Nov, Type 2 diabetes mellitus with unspecified complications E11.8 [facility] [address] [address]- 0075 Nov, [facility] [address] [address] 8827 Nov, Type 2 diabetes mellitus with unspecified complications E11.8 [facility] [address] [address] 3[address] 11 Nov, 2017 Other chronic pain G89.29 and Anxiety associated with depression F41.8 [facility] [address] [address] 08 Nov, 2017 Chronic renal insufficiency N18.9 [facility] [address] [address] 07 Nov, 2017 Other chronic pain G89.29 [facility] [address] [address]- 4187 Nov, Type 2 diabetes mellitus with unspecified complications E11.8 [facility] [address] [address] October, [facility] [address] [address] 7347 October, [facility] [address] [address]- 2677 October, Type 2 diabetes mellitus with unspecified complications E11.8 [facility] [address] [address] 4994 October, [facility] [address] [address]- 50[address] October, [facility] [address] [address]- 0760 October, Type 2 diabetes mellitus with unspecified complications E11.8 [facility] [address] [address]- 2770 October, [facility] [address] [address]- 5[address] October, [facility] [address] [address]- 1177 October, Type 2 diabetes mellitus with unspecified complications E11.8 [address] [facility] [id number] [place] [address] 97841- 4767 October, Type 2 diabetes mellitus with unspecified complications E11.8 ; Essential hypertension I10 ; Chronic renal insufficiency N18.9 ; BMI 40.0-44.9, adult Z68.41 ; Other chronic pain G89.29 ; Anxiety associated with depression F41.8 and Right medial knee pain M25.561 [address] [address] October, GERD (gastroesophageal reflux disease) K21.9 and Anxiety associated with depression F41.8 [address] [facility] [address] [address]- 5400 October, Anxiety associated with depression F41.8 [address] [facility] [address] [address]- [address] Sep, [address] [place] 77698- 4729 Sep, GERD (gastroesophageal reflux disease) K21.9 and Anxiety associated with depression F41.8 [address] 93242- 5525 Aug, [address] [facility] [id number] [place] [address] 64296- 7084 Aug, [facility] [id number] [place] [address] 60919 -3419 Aug, Acute recurrent maxillary sinusitis J01.01 [address] [facility] [id number] [place] [address] 87075- 9848 Aug, [address] 42573- 0751 Aug, GERD (gastroesophageal reflux disease) K21.9 and Other chronic pain G89.29 [address] [address] 43168- 4265 Aug, [facility] [address] [address] Aug, [facility] [id number] [place] [address] 35084- 6161 Aug, Controlled substance agreement signed Z79.899 ; [...] and Enlarged lymph nodes in armpit R59.0 [facility] [id number] [place] [address] 00707- 6053 Aug, Anxiety associated with depression F41.8 and GERD ( gastroesophageal reflux disease) K21.9 [facility] [id number] [place] [address] 53812- 5350 Jul, Controlled substance agreement signed Z79.899 [facility] [id number] [place] [address] 21026- 4258 Jun, Anxiety associated with depression F41.8 and GERD ( gastroesophageal reflux disease) K21.9 [facility] [id number] [place] [address] 40535- 3968 May, Anxiety associated with depression F41.8 and GERD ( gastroesophageal reflux disease) K21.9 [facility] [address] [place] [address] 91466- 1926 Apr, Mixed hyperlipidemia E78.2 [facility] [id number] [place] [address] 25175- 2185 Apr, Anxiety associated with depression F41.8 and GERD ( gastroesophageal reflux disease) K21.9 [facility] [id number] [place] [address] 20163- 4239 Apr, [address] [address]- 0395 Apr, Type 2 diabetes mellitus with unspecified complications E11.8 [address] [facility] [address] [address]- 3717 Apr, [address] [place] [address] 23593- 2729 Apr, Type 2 diabetes mellitus with unspecified complications E11.8 [facility] [id number] [place] [address] 56914- 2080 Apr, [address] [facility] [id number] [place] [address] 05550- 2802 Mar, GERD (gastroesophageal reflux disease) K21.9 and Anxiety associated with depression F41.8 [address] [facility] [id number] [place] [address] 96509- 4720 Mar, 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 [facility] [id number] [place] [address] 81057- 6334 Mar, Essential hypertension I10 ; Anxiety associated with depression F41.8 ; COPD (chronic obstructive pulmonary disease) J44.9 ; Mixed hyperlipidemia E78.2 ; Vitamin D deficiency E55.9 ; GERD (gastroesophageal reflux disease) K21.9 ; Type 2 diabetes mellitus with unspecified complications E11.8 ; Other chronic pain G89.29 and Chronic renal insufficiency N18.9 [address] [place] [address] 44134- 7055 Mar, Chronic renal insufficiency N18.9 [address] [facility] [id number] [place] [address] 77388- 4453 Feb, GERD (gastroesophageal reflux disease) K21.9 and Type 2 diabetes mellitus with unspecified complications E11.8 [address] [facility] [address] [address]- 8084 Feb, Anxiety associated with depression F41.8 and Tear of left supraspinatus tendon, subsequent encounter S46.812D [address] [address]- 1995 Jan, Pre-operative examination for internal medicine Z01.818 [address] [facility] [id number] [place] [address] 70815- 1314 Jan, Anxiety associated with depression F41.8 and Left anterior shoulder pain M25.512 [address] [facility] [id number] [place] [address] 33079- 0564 Jan, [address] [facility] [id number] [place] [address] 54919- 6666 Jan, [address] [facility] [id number] [place] [address] 59417- 3835 Jan, Type 2 diabetes mellitus with unspecified complications E11.8 ; Essential hypertension I10 ; Other chronic pain G89.29 ; GERD ( gastroesophageal reflux disease) K21.9 ; Anxiety associated with depression F41.8 ; Insomnia G47.00 ; Hypertriglyceridemia E78.1 ; Left anterior shoulder pain M25.512 and Tobacco abuse Z72.0 [address] [facility] [id number] [place] [address] 66523- 4248 Dec, Anxiety associated with depression F41.8 and Tear of left supraspinatus tendon, subsequent encounter S46.812D [address] [place] [address] 67170- 1768 Nov, [id number] [place] [address] 74957- 3613 Nov, Anxiety associated with depression F41.8 and Tear of left supraspinatus tendon, subsequent encounter S46.812D [address] [id number] [place] [address] 75204- 2269 05 Nov, 2016 Abnormal lung sounds R09.89 and COPD (chronic obstructive pulmonary disease) with acute bronchitis J44.0 [address] [facility] [id number] [place] [address] 13376- 4079 Nov, [id number] [place] [address] 43350- 5523 October, COPD (chronic obstructive pulmonary disease) with acute bronchitis J44.0 ; Abnormal lung sounds R09.89 and Medication refill Z76.0 [address] [id number] [place] [address] 35123- 0958 October, Anxiety associated with depression F41.8 [address] 91587- 3098 Sep, Nausea and vomiting, unspecified intactability, vomiting of unspecified type R11.2 [address] 33028- 9271 Sep, COPD (chronic obstructive pulmonary disease) J44.9 ; Tobacco abuse Z72.0 ; Tear of left supraspinatus tendon, subsequent encounter S46.812D and Type 2 diabetes mellitus with unspecified complications E11.8 [address] [facility] [id number] [place] [address] 15237- 1250 Sep, [address] 61443- 6327 Aug, Left anterior shoulder pain M25.512 [address] [facility] [id number] [place] [address] 13301- 7914 Aug, Left anterior shoulder pain M25.512 and Low back pain M54.5 [address] [facility] [id number] [place] [address] 01730- 1821 Aug, [id number] [place] [address] 49710- 3589 Aug, [address] 07861- 7716 Aug, [address] [facility] [id number] [place] [address] 24080- 2372 Aug, [address] [place] [address]- 5582 Aug, Type 2 diabetes mellitus with unspecified complications E11.8 [address] 94763- 7206 Aug, Type 2 diabetes mellitus with unspecified [...] E55.9 and GERD (gastroesophageal reflux disease) K21.9 [address] 15762- 2661 Aug, [address] 40449- 5294 May, [address] 46735- 2461 Apr, [address] 24870- 0544 Apr, Type 2 diabetes mellitus with unspecified [...] S49.92XA and Anxiety associated with depression F41.8 [address] 25328- 9701 Apr, [address] 46235- 1392 Apr, [address] 40702- 8938 Apr, [facility] [id number] [address]- 4737 Mar, [facility] [address] [address]- 5978 Feb, [facility] [address] [address]- 0218 Feb, [facility] [address] [address]- 9647 Jan, [facility] [address] [address]- 1110 Jan, [facility] [address] [address]- 8309 Jan, Type 2 diabetes mellitus with unspecified complications E11.8 ; Essential hypertension I10 and Vitamin D deficiency E55.9 [facility] [address] [address]- 6182 Dec, Type 2 diabetes mellitus with unspecified complications E11.8 ; Essential hypertension I10 ; Other chronic pain G89.29 ; Anxiety associated with depression F41.8 ; Bronchitis J40 ; Vitamin D deficiency E55.9 and COPD (chronic obstructive pulmonary disease) J44.9 [facility] [address] [address]- 5312 Nov, [facility] [address] [address]- 1988 October, [facility] [address] [address]- 7328 October, [facility] [address] [address]- 8174 October, [facility] [address] [address]- 9002 October, Dysuria R30.0 ; Bronchitis J40 ; Anxiety associated with depression F41.8 and Type 2 diabetes mellitus with unspecified complications E11.8 [address] [address] [address]- 5731 October, Chronic renal insufficiency N18.9 ; Elevated white blood cell count D72.829 and Frequent UTI N39.0 [address] [facility] [id number] [place] [address] 37600- 0247 October, Chronic renal insufficiency N18.9 ; Elevated white blood cell count D72.829 and Frequent UTI N39.0 [address] [facility] [id number] [place] [address] 16725- 3767 October, [address] [facility] [id number] [place] [address] 30405- 7913 Sep, Type 2 diabetes mellitus with unspecified complications E11.8 ; Essential hypertension I10 ; COPD (chronic obstructive pulmonary disease ) J44.9 and Hospital discharge follow-up Z09 [id number] [place] [address] 30601- 2731 Sep, [id number] [place] [address] 40975- 3583 Sep, Dyspnea R06.00 ; Other chronic pain G89.29 ; Dysuria R30.0 ; Diaphoresis R61 ; Jaundice R17 ; COPD (chronic obstructive pulmonary disease) J44.9 ; Type 2 diabetes mellitus with unspecified complications E11.8 ; Excessive daytime sleepiness G47.19 and Oliguria R34 [address] [place] [address] 35576- 8123 Sep, [address] [place] [address] 80431- 9995 Sep, Essential hypertension I10 ; Anxiety associated with depression F41.8 ; Mixed hyperlipidemia E78.2 ; Dyspnea R06.00 ; Shortness of breath R06.02 and Chest pain, unspecified R07.9 [address] [place] [address] 11982- 0244 Sep, Chest pain R07.9 ; Hyperlipemia E78.5 ; Type 2 diabetes mellitus with unspecified complications E11.8 ; Essential hypertension I10 ; Other chronic pain G89.29 ; Anxiety associated with depression F41.8 ; COPD ( chronic obstructive pulmonary disease) J44.9 ; Low vitamin D level E55.9 ; Tobacco abuse Z72.0 ; Hypertriglyceridemia E78.1 and Abnormal laboratory test R89.9 [address] [id number] [place] [address] 13256- 8524 Aug, Pneumonia J18.9 ; Hypertriglyceridemia E78.1 ; COPD ( chronic obstructive pulmonary disease) J44.9 and Hyperlipidemia E78.5 [id number] [place] [address] 41862- 3063 Aug, Shortness of breath R06.02 ; Anxiety associated with depression F41.8 and Chest pain, unspecified R07.9 [id number] [place] [address] 82831- 6022 Jul, [address] 53380- 5272 Jun, Anxiety associated with depression F41.8 ; [...] unspecified type R11.2 and Tobacco abuse Z72.0 [address] [facility] [id number] [place] [address] 97331- 4858 May, Hyperlipemia E78.5 [id number] [place] [address] 40252- 4554 May, [address] [id number] [place] [address] 47556- 5547 May, Type 2 diabetes mellitus with unspecified complications E11.8 [id number] [place] [address] 95986- 0893 May, [address] 55452- 4246 May, Anxiety associated with depression F41.8 ; Type 2 diabetes mellitus with unspecified complications E11.8 ; Essential hypertension I10 ; Peripheral neuropathy G62.9 ; Low back pain M54.5 ; Other chronic pain G89.29 ; GERD (gastroesophageal reflux disease) K21.9 ; Insomnia G47.00 ; COPD (chronic obstructive pulmonary disease) J44.9 ; URI (upper respiratory infection) J06.9 and Depression F32.[address] 96690- 0581 May, Low back pain M54.5 ; Anxiety about health F41.8 ; Generalized anxiety disorder F41.1 and Acute stress reaction F43.[address] 30779- 5047 May, [id number] [place] [address] 33275- 2071 Apr, Diabetes E11.9 ; Type 2 diabetes mellitus with unspecified complications E11.8 ; Essential hypertension I10 ; Peripheral neuropathy G62.9 ; Low back pain M54.5 ; Other chronic pain G89.29 ; GERD (gastroesophageal reflux disease) K21.9 ; Anxiety associated with depression F41.8 ; Muscle spasm of calf M62.831 ; Insomnia G47.00 and COPD (chronic obstructive pulmonary disease) J44.9 [address] [place] [address] 70537- 4788 May, [address] 62255- 8509 May, IMMUNIZATIONS No Known Immunizations SOCIAL HISTORY Never Assessed REASON FOR VISIT Re:RE:Shantel Del Rosario PLAN OF CARE VITAL SIGNS MEDICATIONS Unknown [...]
[2018-02-19 16:52] LABS: SQUAMOUS EPITHELIAL CELL,UR 0-2 /HPF; WBC,URINE 0-2 /HPF
--- OUTSIDE RECORDS SUMMARY | 2018-02-19 16:52 | XMS REPORT ---
Author Author KATIE JEFFRIES Organization [facility] Address [address] [place] [address] Care Team Providers Care Wellness Specialist Name Role Phone KATIE JEFFRIES Unavailable PROBLEMS Type Condition ICD9-CM Code ICN64-ZW Code Onset Dates Condition Status SNOMED Code Problem Other chronic pain G89.29 Active 70238951 Problem Insomnia G47.00 Active 669347924 Problem Type 2 diabetes mellitus with unspecified complications E11.8 Active 88142204 Problem Constipation by delayed colonic transit K59.01 Active 23735441 Problem Chronic kidney disease (CKD) stage G3b/A1, moderately decreased glomerular filtration rate (GFR) between 30-44 mL/min/1.73 square meter and albuminuria creatinine ratio less than 30 mg/g N18.3 Active 653218827 Problem Mixed hyperlipidemia E78.2 Active 379396859 Problem Controlled substance agreement signed Z79.899 Active 115087058 Problem 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 Active 10909026 Problem Vitamin D deficiency E55.9 Active 45354156 Problem Peripheral neuropathy G62.9 Active 51650697 Problem Essential hypertension I10 Active 45230241 Problem Osteoarthritis of acromioclavicular joint M19.019 Active 296457872 Problem COPD (chronic obstructive pulmonary disease) J44.9 Active 15332686 Problem Anxiety associated with depression F41.8 Active 901621768 Problem GERD (gastroesophageal reflux disease) K21.9 Active 243728477 ALLERGIES No Information ENCOUNTERS Encounter Location Date Diagnosis [facility] [id number] [address] Jan, [facility] [address] [address] Jan, Type 2 diabetes mellitus with unspecified complications E11.8 [facility] [id number] [address] Jan, [facility] [address] [address] Jan, Other chronic pain G89.29 and Anxiety associated with depression F41.8 [facility] [id number] [address] Jan, [facility] [id number] [place] [address] 30977- 4932 Dec, [place] [id number] [place] [address] 96327- 1888 Dec, Type 2 diabetes mellitus with unspecified [...] and 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 [facility] [facility] [id number] [place] [address] 94979- 1656 Dec, [place] [facility] [id number] [place] [address] 48800- 9906 Dec, Type 2 diabetes mellitus with unspecified complications E11.8 [place] [facility] [address] [address] 89[address] Dec, [facility] [facility] [id number] [place] [address] 32113- 4072 Dec, Type 2 diabetes mellitus with unspecified complications E11.8 [facility] [facility] [id number] [place] [address] 75428- 3585 Dec, Type 2 diabetes mellitus with unspecified complications E11.8 [facility] [facility] [id number] [address] 0398 Dec, [facility] [id number] [address]- 6189 Dec, Type 2 diabetes mellitus with unspecified complications E11.8 [facility] [address] [address] 6893 Dec, [facility] [address] [address] 3674 Dec, [facility] [id number] [place] [address] 20828- 3694 Dec, [facility] [address] [address] 9684 Dec, [facility] [id number] [place] [address] 01390- 5224 Dec, [facility] [id number] [address] 8232 Dec, Other chronic pain G89.29 and Anxiety associated with depression F41.8 [facility] [address] [address] 8740 Dec, Type 2 diabetes mellitus with unspecified complications E11.8 [facility] [address] [address] 3162 Nov, [facility] [address] [address]- 5956 Nov, [facility] [address] [address]- 8817 Nov, [facility] [address] [address]- 7299 Nov, [facility] [id number] [address]- 1307 Nov, Type 2 diabetes mellitus with unspecified complications E11.8 [facility] [address] [address]- 3498 Nov, [facility] [address] [address]- 4518 Nov, Type 2 diabetes mellitus with unspecified complications E11.8 [facility] [address] [address]- 9344 11 Nov, 2017 Other chronic pain G89.29 and Anxiety associated with depression F41.8 [facility] [address] [address]- 1484 08 Nov, 2017 Chronic renal insufficiency N18.9 [facility] [id number] [address] 3800 07 Nov, 2017 Other chronic pain G89.29 [facility] [address] [address]- 4165 Nov, Type 2 diabetes mellitus with unspecified complications E11.8 [facility] [address] [address] 5295 October, [facility] [address] [address]- 2140 October, [facility] [address] [address]- 0156 October, Type 2 diabetes mellitus with unspecified complications E11.8 [facility] [address] [address]- 6899 October, [facility] [address] [address]- 2950 October, [facility] [address] [address]- 4792 October, Type 2 diabetes mellitus with unspecified complications E11.8 [facility] [address] [address]- 0024 October, [facility] [address] [address]- 2386 October, [facility] [address] [address]- 6082 October, Type 2 diabetes mellitus with unspecified complications E11.8 [facility] [id number] [place] [address] 23760- 4109 October, Type 2 diabetes mellitus with unspecified complications E11.8 ; Essential hypertension I10 ; Chronic renal insufficiency N18.9 ; BMI 40.0-44.9, adult Z68.41 ; Other chronic pain G89.29 ; Anxiety associated with depression F41.8 and Right medial knee pain M25.561 [address] [address] [address]- [address] October, GERD (gastroesophageal reflux disease) K21.9 and Anxiety associated with depression F41.8 [address] [address] [address]- 9436 October, Anxiety associated with depression F41.8 [address] [address] [address]- [address] Sep, [place] [address] 87571- 1577 Sep, GERD (gastroesophageal reflux disease) K21.9 and Anxiety associated with depression F41.8 [address] [address] 85284- 4863 Aug, [place] [id number] [place] [address] 73962- 0232 Aug, [facility] [id number] [place] [address] 64916 -2491 Aug, Acute recurrent maxillary sinusitis J01.01 [place] [id number] [place] [address] 41360- 7797 Aug, [place] [address] 95079- 8587 Aug, GERD (gastroesophageal reflux disease) K21.9 and Other chronic pain G89.29 [address] [address] 68843- 6758 Aug, [facility] [address] [address] Aug, [facility] [id number] [place] [address] 70995- 2368 Aug, Controlled substance agreement signed Z79.899 ; [...] and Enlarged lymph nodes in armpit R59.0 [facility] [id number] [place] [address] 09535- 0440 Aug, Anxiety associated with depression F41.8 and GERD ( gastroesophageal reflux disease) K21.9 [facility] [id number] [place] [address] 60766- 8302 Jul, Controlled substance agreement signed Z79.899 [facility] [id number] [place] [address] 97977- 0701 Jun, Anxiety associated with depression F41.8 and GERD ( gastroesophageal reflux disease) K21.9 [facility] [id number] [place] [address] 20029- 3690 May, Anxiety associated with depression F41.8 and GERD ( gastroesophageal reflux disease) K21.9 [facility] [address] [place] [address] 78707- 2390 Apr, Mixed hyperlipidemia E78.2 [facility] [id number] [place] [address] 11457- 4211 Apr, Anxiety associated with depression F41.8 and GERD ( gastroesophageal reflux disease) K21.9 [facility] [id number] [place] [address] 66540- 8231 Apr, [address] [place] [address]- 4116 Apr, Type 2 diabetes mellitus with unspecified complications E11.8 [address] [address] [address]- 8744 Apr, [address] [place] [address] [place] [address] 71892- 9866 Apr, Type 2 diabetes mellitus with unspecified complications E11.8 [facility] [facility] [id number] [place] [address] 66959- 3836 Apr, [place] [id number] [place] [address] 90398- 0758 Mar, GERD (gastroesophageal reflux disease) K21.9 and Anxiety associated with depression F41.8 [address] [id number] [place] [address] 86466- 1606 Mar, 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 [facility] [facility] [id number] [place] [address] 36828- 5742 Mar, Essential hypertension I10 ; Anxiety associated with depression F41.8 ; COPD (chronic obstructive pulmonary disease) J44.9 ; Mixed hyperlipidemia E78.2 ; Vitamin D deficiency E55.9 ; GERD (gastroesophageal reflux disease) K21.9 ; Type 2 diabetes mellitus with unspecified complications E11.8 ; Other chronic pain G89.29 and Chronic renal insufficiency N18.9 [address] [place] [address] [place] [address] 91460- 6351 Mar, Chronic renal insufficiency N18.9 [facility] [facility] [id number] [place] [address] 01626- 9578 Feb, GERD (gastroesophageal reflux disease) K21.9 and Type 2 diabetes mellitus with unspecified complications E11.8 [address] [place] [address]- 2868 Feb, Anxiety associated with depression F41.8 and Tear of left supraspinatus tendon, subsequent encounter S46.812D [address] [address]- 3480 Jan, Pre-operative examination for internal medicine Z01.818 [address] [facility] [id number] [place] [address] 96605- 8278 Jan, Anxiety associated with depression F41.8 and Left anterior shoulder pain M25.512 [address] [facility] [id number] [place] [address] 68920- 3082 Jan, [address] [id number] [place] [address] 86704- 7625 Jan, [address] [facility] [id number] [place] [address] 94457- 5573 Jan, Type 2 diabetes mellitus with unspecified complications E11.8 ; Essential hypertension I10 ; Other chronic pain G89.29 ; GERD ( gastroesophageal reflux disease) K21.9 ; Anxiety associated with depression F41.8 ; Insomnia G47.00 ; Hypertriglyceridemia E78.1 ; Left anterior shoulder pain M25.512 and Tobacco abuse Z72.0 [address] [place] [id number] [place] [address] 94311- 4484 Dec, Anxiety associated with depression F41.8 and Tear of left supraspinatus tendon, subsequent encounter S46.812D [address] [place] [place] [address] 42740- 5356 Nov, [address] [id number] [place] [address] 36311- 3473 Nov, Anxiety associated with depression F41.8 and Tear of left supraspinatus tendon, subsequent encounter S46.812D [address] [place] [id number] [place] [address] 39800- 6743 05 Nov, 2016 Abnormal lung sounds R09.89 and COPD (chronic obstructive pulmonary disease) with acute bronchitis J44.0 [address] [id number] [place] [address] 72948- 5663 Nov, [address] [id number] [place] [address] 31613- 6807 October, COPD (chronic obstructive pulmonary disease) with acute bronchitis J44.0 ; Abnormal lung sounds R09.89 and Medication refill Z76.0 [address] [facility] [id number] [place] [address] 42453- 1883 October, Anxiety associated with depression F41.8 [address] [place] [address] 99367- 5685 Sep, Nausea and vomiting, unspecified intactability, vomiting of unspecified type R11.2 [address] [address] 34608- 1930 Sep, COPD (chronic obstructive pulmonary disease) J44.9 ; Tobacco abuse Z72.0 ; Tear of left supraspinatus tendon, subsequent encounter S46.812D and Type 2 diabetes mellitus with unspecified complications E11.8 [address] [id number] [place] [address] 84043- 3760 Sep, [address] [place] [address] 03198- 5939 Aug, Left anterior shoulder pain M25.512 [address] [id number] [place] [address] 06491- 6739 Aug, Left anterior shoulder pain M25.512 and Low back pain M54.5 [address] [id number] [place] [address] 98938- 3952 Aug, [address] [id number] [place] [address] 20740- 1992 Aug, [address] [place] 75448- 8768 Aug, [address] [id number] [place] [address] 91210- 8893 Aug, [address] [place] [address]- 5107 Aug, Type 2 diabetes mellitus with unspecified complications E11.8 [address] [place] 71095- 8127 Aug, Type 2 diabetes mellitus with unspecified [...] E55.9 and GERD (gastroesophageal reflux disease) K21.9 [address] [place] 16582- 1891 Aug, [address] [address] 22016- 4931 May, [address] [place] 76657- 3549 Apr, [address] [place] 01178- 1513 Apr, Type 2 diabetes mellitus with unspecified [...] S49.92XA and Anxiety associated with depression F41.8 [address] [place] 65790- 7653 Apr, [address] [address] 00230- 8384 Apr, [address] [place] [address] 21077- 2012 Apr, [facility] [id number] [address]- 9726 Mar, [facility] [address] [address]- 8369 Feb, [facility] [address] [address]- 9267 Feb, [facility] [address] [address]- 0195 Jan, [facility] [address] [address]- 5928 Jan, [facility] [address] [address]- 0648 Jan, Type 2 diabetes mellitus with unspecified complications E11.8 ; Essential hypertension I10 and Vitamin D deficiency E55.9 [facility] [address] [address]- 8267 Dec, Type 2 diabetes mellitus with unspecified complications E11.8 ; Essential hypertension I10 ; Other chronic pain G89.29 ; Anxiety associated with depression F41.8 ; Bronchitis J40 ; Vitamin D deficiency E55.9 and COPD (chronic obstructive pulmonary disease) J44.9 [facility] [address] [address]- 4115 Nov, [facility] [address] [address]- 8687 October, [facility] [address] [address]- 8848 October, [facility] [address] [address]- 8809 October, [facility] [address] [address]- 7562 October, Dysuria R30.0 ; Bronchitis J40 ; Anxiety associated with depression F41.8 and Type 2 diabetes mellitus with unspecified complications E11.8 [address] [address] [address]- 2614 October, Chronic renal insufficiency N18.9 ; Elevated white blood cell count D72.829 and Frequent UTI N39.0 [place] [id number] [place] [address] 88554- 9543 October, Chronic renal insufficiency N18.9 ; Elevated white blood cell count D72.829 and Frequent UTI N39.0 [place] [id number] [place] [address] 85312- 5646 October, [place] [id number] [place] [address] 31850- 9520 Sep, Type 2 diabetes mellitus with unspecified complications E11.8 ; Essential hypertension I10 ; COPD (chronic obstructive pulmonary disease ) J44.9 and Hospital discharge follow-up Z09 [place] [id number] [place] [address] 18739- 8826 Sep, [id number] [place] [address] 58664- 5950 Sep, Dyspnea R06.00 ; Other chronic pain G89.29 ; Dysuria R30.0 ; Diaphoresis R61 ; Jaundice R17 ; COPD (chronic obstructive pulmonary disease) J44.9 ; Type 2 diabetes mellitus with unspecified complications E11.8 ; Excessive daytime sleepiness G47.19 and Oliguria R34 [address] [place] [address] 48634- 2968 Sep, [address] [place] [address] 94564- 0075 Sep, Essential hypertension I10 ; Anxiety associated with depression F41.8 ; Mixed hyperlipidemia E78.2 ; Dyspnea R06.00 ; Shortness of breath R06.02 and Chest pain, unspecified R07.9 [address] [place] [address] 49762- 1873 Sep, Chest pain R07.9 ; Hyperlipemia E78.5 ; Type 2 diabetes mellitus with unspecified complications E11.8 ; Essential hypertension I10 ; Other chronic pain G89.29 ; Anxiety associated with depression F41.8 ; COPD ( chronic obstructive pulmonary disease) J44.9 ; Low vitamin D level E55.9 ; Tobacco abuse Z72.0 ; Hypertriglyceridemia E78.1 and Abnormal laboratory test R89.9 [place] [id number] [place] [address] 47713- 7068 Aug, Pneumonia J18.9 ; Hypertriglyceridemia E78.1 ; COPD ( chronic obstructive pulmonary disease) J44.9 and Hyperlipidemia E78.5 [id number] [place] [address] 79285- 3045 Aug, Shortness of breath R06.02 ; Anxiety associated with depression F41.8 and Chest pain, unspecified R07.9 [id number] [place] [address] 05815- 2532 Jul, [address] 15397- 8554 Jun, Anxiety associated with depression F41.8 ; [...] unspecified type R11.2 and Tobacco abuse Z72.0 [place] [id number] [place] [address] 99565- 9126 May, Hyperlipemia E78.5 [id number] [place] [address] 12428- 2041 May, [place] [id number] [place] [address] 26388- 7034 May, Type 2 diabetes mellitus with unspecified complications E11.8 [address] [place] [id number] [place] [address] 02997- 2266 May, [address] 63245- 0503 May, Anxiety associated with depression F41.8 ; Type 2 diabetes mellitus with unspecified complications E11.8 ; Essential hypertension I10 ; Peripheral neuropathy G62.9 ; Low back pain M54.5 ; Other chronic pain G89.29 ; GERD (gastroesophageal reflux disease) K21.9 ; Insomnia G47.00 ; COPD (chronic obstructive pulmonary disease) J44.9 ; URI (upper respiratory infection) J06.9 and Depression F32.[address] 26102- 1071 May, Low back pain M54.5 ; Anxiety about health F41.8 ; Generalized anxiety disorder F41.1 and Acute stress reaction F43.[address] 01765- 5450 May, [address] [place] [id number] [place] [address] 47007- 8450 Apr, Diabetes E11.9 ; Type 2 diabetes mellitus with unspecified complications E11.8 ; Essential hypertension I10 ; Peripheral neuropathy G62.9 ; Low back pain M54.5 ; Other chronic pain G89.29 ; GERD (gastroesophageal reflux disease) K21.9 ; Anxiety associated with depression F41.8 ; Muscle spasm of calf M62.831 ; Insomnia G47.00 and COPD (chronic obstructive pulmonary disease) J44.9 [address] [place] [address] 89159- 5195 May, [address] 15745- 5013 May, IMMUNIZATIONS No Known Immunizations SOCIAL HISTORY Never Assessed REASON FOR VISIT CECILIO [facility] PLAN OF CARE VITAL SIGNS MEDICATIONS Unknown [...]
--- OUTSIDE RECORDS SUMMARY | 2018-02-19 16:52 | XMS REPORT ---
Author Author KATIE JEFFRIES Organization [facility] Address [address] [place] [address] Care Team Providers Care Plant Tour Guide Name Role Phone KATIE JEFFRIES Unavailable PROBLEMS Type Condition ICD9-CM Code SRB40-QL Code Onset Dates Condition Status SNOMED Code Problem Other chronic pain G89.29 Active 70789883 Problem Insomnia G47.00 Active 409326603 Problem Type 2 diabetes mellitus with unspecified complications E11.8 Active 54361729 Problem Constipation by delayed colonic transit K59.01 Active 30230198 Problem Chronic kidney disease (CKD) stage G3b/A1, moderately decreased glomerular filtration rate (GFR) between 30-44 mL/min/1.73 square meter and albuminuria creatinine ratio less than 30 mg/g N18.3 Active 952414140 Problem Mixed hyperlipidemia E78.2 Active 829294222 Problem Controlled substance agreement signed Z79.899 Active 852979470 Problem 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 Active 30647784 Problem Vitamin D deficiency E55.9 Active 60075928 Problem Peripheral neuropathy G62.9 Active 47920837 Problem Essential hypertension I10 Active 69361381 Problem Osteoarthritis of acromioclavicular joint M19.019 Active 355488677 Problem COPD (chronic obstructive pulmonary disease) J44.9 Active 62566014 Problem Anxiety associated with depression F41.8 Active 691644245 Problem GERD (gastroesophageal reflux disease) K21.9 Active 791595701 ALLERGIES No Information ENCOUNTERS Encounter Location Date Diagnosis [facility] [id number], [place] [address] Jan, [facility] [address], [place] [address] Jan, Type 2 diabetes mellitus with unspecified complications E11.8 [facility] [id number], [place] [address] Jan, [facility] [address], [place] [address] Jan, Other chronic pain G89.29 and Anxiety associated with depression F41.8 [facility] [id number] [address] Jan, [facility] [id number] [place] [address] 01751- 6310 Dec, [facility] [id number] [place] [address] 25054- 8904 Dec, Type 2 diabetes mellitus with unspecified [...] and 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 [facility] [id number] [place] [address] 86639- 6633 Dec, [facility] [id number] [place] [address] 79309- 1486 Dec, Type 2 diabetes mellitus with unspecified complications E11.8 [facility] [address], [place] [address] Dec, [facility] [id number] [place] [address] 94128- 4030 Dec, Type 2 diabetes mellitus with unspecified complications E11.8 [facility] [id number] [place] [address] 97135- 3330 Dec, Type 2 diabetes mellitus with unspecified complications E11.8 [facility] [id number] [address] 9376 Dec, [facility] [id number] [address] 1363 Dec, Type 2 diabetes mellitus with unspecified complications E11.8 [facility] [address], [place] [address] 1360 Dec, [facility] [address], [place] [address] 8430 Dec, [facility] [id number] [place] [address] 80806- 0276 Dec, [facility] [address], [place] [address] 6452 Dec, [facility] [id number] [place] [address] 91543- 4471 Dec, [facility] [id number] [address] 7404 Dec, Other chronic pain G89.29 and Anxiety associated with depression F41.8 [facility] [address], [place] [address] 5770 Dec, Type 2 diabetes mellitus with unspecified complications E11.8 [facility] [address], [place] [address] 6600 Nov, [facility] [address], [place] [address] 3174 Nov, [facility] [address], [place] [address] 8341 Nov, [facility] [address], [place] [address]- 8747 Nov, [facility] [id number] [address] 1257 Nov, Type 2 diabetes mellitus with unspecified complications E11.8 [facility] [address], [place] [address]- 4066 Nov, [facility] [address], [place] [address] 5786 Nov, Type 2 diabetes mellitus with unspecified complications E11.8 [facility] [address], [place] [address] 7747 11 Nov, 2017 Other chronic pain G89.29 and Anxiety associated with depression F41.8 [facility] [address], [place] [address] 9[address] 08 Nov, 2017 Chronic renal insufficiency N18.9 [facility] [id number] [address] 9[address] 07 Nov, 2017 Other chronic pain G89.29 [facility] [id number] [address] 8039 Nov, Type 2 diabetes mellitus with unspecified complications E11.8 [facility] [address], [place] [address] October, [facility] [address], [place] [address] 0348 October, [facility] [address], [place] [address]- 1835 October, Type 2 diabetes mellitus with unspecified complications E11.8 [facility] [address], [place] [address] 5498 October, [facility] [address], [place] [address]- 9783 October, [facility] [address], [place] [address]- 1131 October, Type 2 diabetes mellitus with unspecified complications E11.8 [facility] [address], [place] [address]- 8863 October, [facility] [address], [place] [address]- 4875 October, [facility] [address], [place] [address]- 9081 October, Type 2 diabetes mellitus with unspecified complications E11.8 [facility] [id number] [place] [address] 84461- 5851 October, Type 2 diabetes mellitus with unspecified complications E11.8 ; Essential hypertension I10 ; Chronic renal insufficiency N18.9 ; BMI 40.0-44.9, adult Z68.41 ; Other chronic pain G89.29 ; Anxiety associated with depression F41.8 and Right medial knee pain M25.561 [facility] [facility] [address] [address]- 9788 October, GERD (gastroesophageal reflux disease) K21.9 and Anxiety associated with depression F41.8 [facility] [address] 557[address]- 4918 October, Anxiety associated with depression F41.8 [facility] [address] [address]- 4674 Sep, [place] [facility] [address] 44197- 0102 Sep, GERD (gastroesophageal reflux disease) K21.9 and Anxiety associated with depression F41.8 [facility] [address] 69119- 4779 Aug, [facility] [id number] [place] [address] 15856- 7756 Aug, [facility] [id number] [place] [address] 66548 -4026 Aug, Acute recurrent maxillary sinusitis J01.01 [facility] [id number] [place] [address] 13580- 5474 Aug, [place] [address] 98267- 2564 Aug, GERD (gastroesophageal reflux disease) K21.9 and Other chronic pain G89.29 [facility] [address] 11377- 1362 Aug, [facility] [address], [place] [address] Aug, [facility] [id number] [place] [address] 50733- 2128 Aug, Controlled substance agreement signed Z79.899 ; [...] and Enlarged lymph nodes in armpit R59.0 [facility] [id number] [place] [address] 09559- 1205 Aug, Anxiety associated with depression F41.8 and GERD ( gastroesophageal reflux disease) K21.9 [facility] [id number] [place] [address] 15679- 6072 Jul, Controlled substance agreement signed Z79.899 [facility] [id number] [place] [address] 12840- 9207 Jun, Anxiety associated with depression F41.8 and GERD ( gastroesophageal reflux disease) K21.9 [facility] [id number] [place] [address] 34147- 0911 May, Anxiety associated with depression F41.8 and GERD ( gastroesophageal reflux disease) K21.9 [facility] [address] [place] [address] 02009- 4360 Apr, Mixed hyperlipidemia E78.2 [facility] [id number] [place] [address] 07989- 9181 Apr, Anxiety associated with depression F41.8 and GERD ( gastroesophageal reflux disease) K21.9 [facility] [id number] [place] [address] 50755- 3265 Apr, [place] [address], [place] [address]- 7396 Apr, Type 2 diabetes mellitus with unspecified complications E11.8 [facility] [address], [place] [address]- 0245 Apr, [place] [address] [place] [address] 25142- 0970 Apr, Type 2 diabetes mellitus with unspecified complications E11.8 [facility] [id number] [place] [address] 78231- 6886 Apr, [facility] [id number] [place] [address] 56591- 4070 Mar, GERD (gastroesophageal reflux disease) K21.9 and Anxiety associated with depression F41.8 [facility] [id number] [place] [address] 29735- 6591 Mar, 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 [facility] [id number] [place] [address] 42076- 8963 Mar, Essential hypertension I10 ; Anxiety associated with depression F41.8 ; COPD (chronic obstructive pulmonary disease) J44.9 ; Mixed hyperlipidemia E78.2 ; Vitamin D deficiency E55.9 ; GERD (gastroesophageal reflux disease) K21.9 ; Type 2 diabetes mellitus with unspecified complications E11.8 ; Other chronic pain G89.29 and Chronic renal insufficiency N18.9 [facility] [address] [place] [address] 02179- 7928 Mar, Chronic renal insufficiency N18.9 [facility] [id number] [place] [address] 27260- 6905 Feb, GERD (gastroesophageal reflux disease) K21.9 and Type 2 diabetes mellitus with unspecified complications E11.8 [facility] [address], [place] [address]- 6513 Feb, Anxiety associated with depression F41.8 and Tear of left supraspinatus tendon, subsequent encounter S46.812D [facility] [address], [place] [address]- 6596 Jan, Pre-operative examination for internal medicine Z01.818 [facility] [id number] [place] [address] 49326- 6084 Jan, Anxiety associated with depression F41.8 and Left anterior shoulder pain M25.512 [facility] [id number] [place] [address] 19684- 8413 Jan, [facility] [id number] [place] [address] 22442- 2530 Jan, [facility] [id number] [place] [address] 53712- 3864 Jan, Type 2 diabetes mellitus with unspecified complications E11.8 ; Essential hypertension I10 ; Other chronic pain G89.29 ; GERD ( gastroesophageal reflux disease) K21.9 ; Anxiety associated with depression F41.8 ; Insomnia G47.00 ; Hypertriglyceridemia E78.1 ; Left anterior shoulder pain M25.512 and Tobacco abuse Z72.0 [facility] [id number] [place] [address] 94192- 8474 Dec, Anxiety associated with depression F41.8 and Tear of left supraspinatus tendon, subsequent encounter S46.812D [place] [address] [place] [address] 36484- 3985 Nov, [facility] [id number] [place] [address] 39830- 6443 Nov, Anxiety associated with depression F41.8 and Tear of left supraspinatus tendon, subsequent encounter S46.812D [facility] [id number] [place] [address] 71788- 4769 05 Nov, 2016 Abnormal lung sounds R09.89 and COPD (chronic obstructive pulmonary disease) with acute bronchitis J44.0 [facility] [place] [id number] [place] [address] 32096- 3396 Nov, [facility] [id number] [place] [address] 12663- 0388 October, COPD (chronic obstructive pulmonary disease) with acute bronchitis J44.0 ; Abnormal lung sounds R09.89 and Medication refill Z76.0 [facility] [id number] [place] [address] 32689- 1900 October, Anxiety associated with depression F41.8 [facility] [address] 40668- 8533 Sep, Nausea and vomiting, unspecified intactability, vomiting of unspecified type R11.2 [facility] [place] [address] 95349- 7311 Sep, COPD (chronic obstructive pulmonary disease) J44.9 ; Tobacco abuse Z72.0 ; Tear of left supraspinatus tendon, subsequent encounter S46.812D and Type 2 diabetes mellitus with unspecified complications E11.8 [facility] [id number] [place] [address] 74690- 7007 Sep, [place] [address] 40826- 9812 Aug, Left anterior shoulder pain M25.512 [facility] [id number] [place] [address] 65803- 5250 Aug, Left anterior shoulder pain M25.512 and Low back pain M54.5 [facility] [id number] [place] [address] 39866- 0643 Aug, [facility] [id number] [place] [address] 52068- 3679 Aug, [place] [address] 73264- 3935 Aug, [facility] [place] [id number] [place] [address] 39083- 6346 Aug, [place] [address] [place] [address]- 6875 Aug, Type 2 diabetes mellitus with unspecified complications E11.8 [facility] [address] 19512- 4452 Aug, Type 2 diabetes mellitus with unspecified [...] E55.9 and GERD (gastroesophageal reflux disease) K21.9 [facility] [address] 63755- 6033 Aug, [place] [address] 67941- 5602 May, [place] [address] 55021- 4757 Apr, [place] [address] 56501- 0546 Apr, Type 2 diabetes mellitus with unspecified [...] S49.92XA and Anxiety associated with depression F41.8 [facility] [address] 66982- 2067 Apr, [place] [address] 91236- 0993 Apr, [place] [address] 34527- 8530 Apr, [facility] [id number], [place] [address]- 6004 Mar, [facility] [address], [place] [address]- 3858 Feb, [facility] [address], [place] [address]- 5763 Feb, [facility] [address], [place] [address]- 7415 Jan, [facility] [address], [place] [address]- 0387 Jan, [facility] [address], [place] [address]- 4699 Jan, Type 2 diabetes mellitus with unspecified complications E11.8 ; Essential hypertension I10 and Vitamin D deficiency E55.9 [facility] [address], [place] [address]- 1550 Dec, Type 2 diabetes mellitus with unspecified complications E11.8 ; Essential hypertension I10 ; Other chronic pain G89.29 ; Anxiety associated with depression F41.8 ; Bronchitis J40 ; Vitamin D deficiency E55.9 and COPD (chronic obstructive pulmonary disease) J44.9 [facility] [address], [place] [address]- 7284 Nov, [facility] [address], [place] [address]- 5453 October, [facility] [address], [place] [address]- 2188 October, [facility] [address], [place] [address]- 1047 October, [facility] [address], [place] [address]- 8912 October, Dysuria R30.0 ; Bronchitis J40 ; Anxiety associated with depression F41.8 and Type 2 diabetes mellitus with unspecified complications E11.8 [facility] [address], [place] [address]- 2640 October, Chronic renal insufficiency N18.9 ; Elevated white blood cell count D72.829 and Frequent UTI N39.0 [facility] [id number] [place] [address] 04953- 3287 October, Chronic renal insufficiency N18.9 ; Elevated white blood cell count D72.829 and Frequent UTI N39.0 [facility] [id number] [place] [address] 02967- 1740 October, [facility] [id number] [place] [address] 84367- 5353 Sep, Type 2 diabetes mellitus with unspecified complications E11.8 ; Essential hypertension I10 ; COPD (chronic obstructive pulmonary disease ) J44.9 and Hospital discharge follow-up Z09 [facility] [id number] [place] [address] 17223- 6965 Sep, [address] [id number] [place] [address] 36838- 4118 Sep, Dyspnea R06.00 ; Other chronic pain G89.29 ; Dysuria R30.0 ; Diaphoresis R61 ; Jaundice R17 ; COPD (chronic obstructive pulmonary disease) J44.9 ; Type 2 diabetes mellitus with unspecified complications E11.8 ; Excessive daytime sleepiness G47.19 and Oliguria R34 [address] [place] [address] 18305- 4670 Sep, [address] [place] [address] 66807- 8656 Sep, Essential hypertension I10 ; Anxiety associated with depression F41.8 ; Mixed hyperlipidemia E78.2 ; Dyspnea R06.00 ; Shortness of breath R06.02 and Chest pain, unspecified R07.9 [address] [place] [address] 47210- 0976 Sep, Chest pain R07.9 ; Hyperlipemia E78.5 ; Type 2 diabetes mellitus with unspecified complications E11.8 ; Essential hypertension I10 ; Other chronic pain G89.29 ; Anxiety associated with depression F41.8 ; COPD ( chronic obstructive pulmonary disease) J44.9 ; Low vitamin D level E55.9 ; Tobacco abuse Z72.0 ; Hypertriglyceridemia E78.1 and Abnormal laboratory test R89.9 [place] [id number] [place] [address] 09595- 8706 Aug, Pneumonia J18.9 ; Hypertriglyceridemia E78.1 ; COPD ( chronic obstructive pulmonary disease) J44.9 and Hyperlipidemia E78.5 [id number] [place] [address] 23114- 7591 Aug, Shortness of breath R06.02 ; Anxiety associated with depression F41.8 and Chest pain, unspecified R07.9 [id number] [place] [address] 71774- 8305 Jul, [address] 76368- 8071 Jun, Anxiety associated with depression F41.8 ; [...] unspecified type R11.2 and Tobacco abuse Z72.0 [place] [id number] [place] [address] 25589- 0052 May, Hyperlipemia E78.5 [id number] [place] [address] 86607- 5679 May, [place] [id number] [place] [address] 23368- 7174 May, Type 2 diabetes mellitus with unspecified complications E11.8 [address] [id number] [place] [address] 94097- 3633 May, [address] 05424- 3380 May, Anxiety associated with depression F41.8 ; Type 2 diabetes mellitus with unspecified complications E11.8 ; Essential hypertension I10 ; Peripheral neuropathy G62.9 ; Low back pain M54.5 ; Other chronic pain G89.29 ; GERD (gastroesophageal reflux disease) K21.9 ; Insomnia G47.00 ; COPD (chronic obstructive pulmonary disease) J44.9 ; URI (upper respiratory infection) J06.9 and Depression F32.[address] 27926- 2159 May, Low back pain M54.5 ; Anxiety about health F41.8 ; Generalized anxiety disorder F41.1 and Acute stress reaction F43.[address] 21083- 2598 May, [place] [id number] [place] [address] 30780- 4631 Apr, Diabetes E11.9 ; Type 2 diabetes mellitus with unspecified complications E11.8 ; Essential hypertension I10 ; Peripheral neuropathy G62.9 ; Low back pain M54.5 ; Other chronic pain G89.29 ; GERD (gastroesophageal reflux disease) K21.9 ; Anxiety associated with depression F41.8 ; Muscle spasm of calf M62.831 ; Insomnia G47.00 and COPD (chronic obstructive pulmonary disease) J44.9 [address] [place] [address] 21374- 1420 May, [address] 02014- 0070 May, IMMUNIZATIONS No Known Immunizations SOCIAL HISTORY Never Assessed REASON FOR VISIT [employer] PLAN OF CARE VITAL SIGNS MEDICATIONS Medication Instructions Dosage Frequency Start Date End Date Duration Status [employer] [place] - as directed Dec, Active RESULTS No Results PROCEDURES No Known [...]
--- OUTSIDE RECORDS SUMMARY | 2018-02-19 16:53 | XMS REPORT ---
Author Author KATIE JEFFRIES Organization [facility] Address [address] [place] [address] Care Team Providers Care Truss Builder Name Role Phone KATIE JEFFRIES Unavailable PROBLEMS Type Condition ICD9-CM Code YUN01-LD Code Onset Dates Condition Status SNOMED Code Problem Other chronic pain G89.29 Active 98855593 Problem Insomnia G47.00 Active 263441900 Problem Type 2 diabetes mellitus with unspecified complications E11.8 Active 32682606 Problem Constipation by delayed colonic transit K59.01 Active 26043341 Problem Chronic kidney disease (CKD) stage G3b/A1, moderately decreased glomerular filtration rate (GFR) between 30-44 mL/min/1.73 square meter and albuminuria creatinine ratio less than 30 mg/g N18.3 Active 689931375 Problem Mixed hyperlipidemia E78.2 Active 579978445 Problem Controlled substance agreement signed Z79.899 Active 750269452 Problem 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 Active 32161133 Problem Vitamin D deficiency E55.9 Active 99159475 Problem Peripheral neuropathy G62.9 Active 53883745 Problem Essential hypertension I10 Active 79206946 Problem Osteoarthritis of acromioclavicular joint M19.019 Active 777682640 Problem COPD (chronic obstructive pulmonary disease) J44.9 Active 04102277 Problem Anxiety associated with depression F41.8 Active 393848126 Problem GERD (gastroesophageal reflux disease) K21.9 Active 316043390 ALLERGIES No Information ENCOUNTERS Encounter Location Date Diagnosis [facility] [id number], [place] [address] Jan, [facility] [address], [place] [address] Jan, Type 2 diabetes mellitus with unspecified complications E11.8 [facility] [id number], [place] [address] Jan, [facility] [address], [place] [address] Jan, Other chronic pain G89.29 and Anxiety associated with depression F41.8 [facility] [id number] [address] Jan, [facility] [id number] [place] [address] 75456- 8399 Dec, [facility] [id number] [place] [address] 37801- 3998 Dec, Type 2 diabetes mellitus with unspecified [...] and 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 [facility] [id number] [place] [address] 16026- 7917 Dec, [facility] [id number] [place] [address] 07227- 7920 Dec, Type 2 diabetes mellitus with unspecified complications E11.8 [facility] [address], [place] [address] Dec, [facility] [id number] [place] [address] 75027- 1770 Dec, Type 2 diabetes mellitus with unspecified complications E11.8 [facility] [id number] [place] [address] 72535- 2963 Dec, Type 2 diabetes mellitus with unspecified complications E11.8 [facility] [id number] [address] 0837 Dec, [facility] [id number] [place] [address] 7143 Dec, Type 2 diabetes mellitus with unspecified complications E11.8 [facility] [address], [place] [address] 3028 Dec, [facility] [address], [place] [address] 4453 Dec, [facility] [id number] [place] [address] 73542- 8069 Dec, [facility] [address], [place] [address] 5602 Dec, [facility] [id number] [place] [address] 81876- 0524 Dec, [facility] [id number] [address] 8986 Dec, Other chronic pain G89.29 and Anxiety associated with depression F41.8 [facility] [address], [place] [address] 2411 Dec, Type 2 diabetes mellitus with unspecified complications E11.8 [facility] [address], [place] [address] 4063 Nov, [facility] [address], [place] [address]- 8131 Nov, [facility] [address], [place] [address]- 2872 Nov, [facility] [address], [place] [address] 1935 Nov, [facility] [id number] [address]- 0487 Nov, Type 2 diabetes mellitus with unspecified complications E11.8 [facility] [address], [place] [address]- 7343 Nov, [facility] [address], [place] [address]- 8667 Nov, Type 2 diabetes mellitus with unspecified complications E11.8 [facility] [address], [place] [address]- 5177 11 Nov, 2017 Other chronic pain G89.29 and Anxiety associated with depression F41.8 [facility] [address], [place] [address]- 5[address] 08 Nov, 2017 Chronic renal insufficiency N18.9 [facility] [id number] [address] 8796 07 Nov, 2017 Other chronic pain G89.29 [facility] [id number] [address] 4404 Nov, Type 2 diabetes mellitus with unspecified complications E11.8 [facility] [address], [place] [address] October, [facility] [address], [place] [address]- 1734 October, [facility] [address], [place] [address]- 7595 October, Type 2 diabetes mellitus with unspecified complications E11.8 [facility] [address], [place] [address]- 5323 October, [facility] [address], [place] [address]- 2577 October, [facility] [address], [place] [address]- 4104 October, Type 2 diabetes mellitus with unspecified complications E11.8 [facility] [address], [place] [address]- 9733 October, [facility] [address], [place] [address]- 1019 October, [facility] [address], [place] [address]- 3255 October, Type 2 diabetes mellitus with unspecified complications E11.8 [facility] [id number] [place] [address] 11238- 2523 October, Type 2 diabetes mellitus with unspecified complications E11.8 ; Essential hypertension I10 ; Chronic renal insufficiency N18.9 ; BMI 40.0-44.9, adult Z68.41 ; Other chronic pain G89.29 ; Anxiety associated with depression F41.8 and Right medial knee pain M25.561 [facility] [address] [address]- 6925 October, GERD (gastroesophageal reflux disease) K21.9 and Anxiety associated with depression F41.8 [facility] [address] 78329- 2593 October, Anxiety associated with depression F41.8 [facility] [address] 83255- 6283 Sep, [facility] [address] 41692- 2333 Sep, GERD (gastroesophageal reflux disease) K21.9 and Anxiety associated with depression F41.8 [facility] [address] 32815- 0323 Aug, [facility] [id number] [place] [address] 90389- 4815 Aug, [facility] [id number] [place] [address] 90865 -6985 Aug, Acute recurrent maxillary sinusitis J01.01 [facility] [id number] [place] [address] 32496- 0124 Aug, [facility] [address] 74803- 8282 Aug, GERD (gastroesophageal reflux disease) K21.9 and Other chronic pain G89.29 [facility] [address] 74306- 7796 Aug, [facility] [address], [place] [address] Aug, [facility] [id number] [place] [address] 36100- 7361 Aug, Controlled substance agreement signed Z79.899 ; [...] and Enlarged lymph nodes in armpit R59.0 [facility] [id number] [place] [address] 81322- 6131 Aug, Anxiety associated with depression F41.8 and GERD ( gastroesophageal reflux disease) K21.9 [facility] [id number] [place] [address] 00920- 1457 Jul, Controlled substance agreement signed Z79.899 [facility] [id number] [place] [address] 52760- 9475 Jun, Anxiety associated with depression F41.8 and GERD ( gastroesophageal reflux disease) K21.9 [facility] [id number] [place] [address] 25712- 6722 May, Anxiety associated with depression F41.8 and GERD ( gastroesophageal reflux disease) K21.9 [facility] [address] [place] [address] 72770- 8356 Apr, Mixed hyperlipidemia E78.2 [facility] [id number] [place] [address] 93534- 6690 Apr, Anxiety associated with depression F41.8 and GERD ( gastroesophageal reflux disease) K21.9 [facility] [id number] [place] [address] 66562- 8095 Apr, [facility] [address], [place] [address]- 2264 Apr, Type 2 diabetes mellitus with unspecified complications E11.8 [facility] [address], [place] [address]- 1203 Apr, [facility] [address] [place] [address] 88427- 1351 Apr, Type 2 diabetes mellitus with unspecified complications E11.8 [facility] [id number] [place] [address] 13598- 0491 Apr, [facility] [id number] [place] [address] 20902- 6123 Mar, GERD (gastroesophageal reflux disease) K21.9 and Anxiety associated with depression F41.8 [facility] [id number] [place] [address] 35498- 5155 Mar, 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 [facility] [id number] [place] [address] 02714- 2602 Mar, Essential hypertension I10 ; Anxiety associated with depression F41.8 ; COPD (chronic obstructive pulmonary disease) J44.9 ; Mixed hyperlipidemia E78.2 ; Vitamin D deficiency E55.9 ; GERD (gastroesophageal reflux disease) K21.9 ; Type 2 diabetes mellitus with unspecified complications E11.8 ; Other chronic pain G89.29 and Chronic renal insufficiency N18.9 [facility] [address] [place] [address] 39856- 4094 Mar, Chronic renal insufficiency N18.9 [facility] [id number] [place] [address] 82317- 5715 Feb, GERD (gastroesophageal reflux disease) K21.9 and Type 2 diabetes mellitus with unspecified complications E11.8 [facility] [address], [place] [address]- 0999 Feb, Anxiety associated with depression F41.8 and Tear of left supraspinatus tendon, subsequent encounter S46.812D [facility] [address], [place] [address]- 0221 Jan, Pre-operative examination for internal medicine Z01.818 [facility] [id number] [place] [address] 08179- 5659 Jan, Anxiety associated with depression F41.8 and Left anterior shoulder pain M25.512 [facility] [id number] [place] [address] 20894- 8646 Jan, [facility] [id number] [place] [address] 70344- 8610 Jan, [facility] [id number] [place] [address] 67681- 4376 Jan, Type 2 diabetes mellitus with unspecified complications E11.8 ; Essential hypertension I10 ; Other chronic pain G89.29 ; GERD ( gastroesophageal reflux disease) K21.9 ; Anxiety associated with depression F41.8 ; Insomnia G47.00 ; Hypertriglyceridemia E78.1 ; Left anterior shoulder pain M25.512 and Tobacco abuse Z72.0 [facility] [id number] [place] [address] 82400- 3550 Dec, Anxiety associated with depression F41.8 and Tear of left supraspinatus tendon, subsequent encounter S46.812D [facility] [address] [place] [address] 25671- 7160 Nov, [facility] [id number] [place] [address] 08517- 6689 Nov, Anxiety associated with depression F41.8 and Tear of left supraspinatus tendon, subsequent encounter S46.812D [facility] [id number] [place] [address] 30019- 0992 05 Nov, 2016 Abnormal lung sounds R09.89 and COPD (chronic obstructive pulmonary disease) with acute bronchitis J44.0 [facility] [id number] [place] [address] 40837- 4623 Nov, [facility] [id number] [place] [address] 71786- 9555 October, COPD (chronic obstructive pulmonary disease) with acute bronchitis J44.0 ; Abnormal lung sounds R09.89 and Medication refill Z76.0 [facility] [id number] [place] [address] 92034- 7971 October, Anxiety associated with depression F41.8 [facility] [address] 60954- 8054 Sep, Nausea and vomiting, unspecified intactability, vomiting of unspecified type R11.2 [facility] [address] 40586- 2269 Sep, COPD (chronic obstructive pulmonary disease) J44.9 ; Tobacco abuse Z72.0 ; Tear of left supraspinatus tendon, subsequent encounter S46.812D and Type 2 diabetes mellitus with unspecified complications E11.8 [facility] [id number] [place] [address] 01365- 3195 Sep, [facility] [address] 60741- 7656 Aug, Left anterior shoulder pain M25.512 [facility] [id number] [place] [address] 44106- 6760 Aug, Left anterior shoulder pain M25.512 and Low back pain M54.5 [facility] [id number] [place] [address] 11735- 8772 Aug, [facility] [id number] [place] [address] 25776- 4526 Aug, [facility] [address] 02978- 3876 Aug, [facility] [id number] [place] [address] 54362- 0240 Aug, [facility] [facility] [address] [place] [address]- 3203 Aug, Type 2 diabetes mellitus with unspecified complications E11.8 [facility] [address] 09012- 6280 Aug, Type 2 diabetes mellitus with unspecified [...] E55.9 and GERD (gastroesophageal reflux disease) K21.9 [facility] [address] 71369- 0090 Aug, [facility] [address] 49133- 2173 May, [facility] [address] 08545- 7499 Apr, [facility] [address] 77338- 2740 Apr, Type 2 diabetes mellitus with unspecified [...] S49.92XA and Anxiety associated with depression F41.8 [facility] [address] 97499- 4447 Apr, [facility] [facility] [address] 48518- 4019 Apr, [facility] [facility] [address] 09720- 9179 Apr, [facility] [id number], [place] [address]- 8096 Mar, [facility] [address], [place] [address]- 7873 Feb, [facility] [address], [place] [address]- 1016 Feb, [facility] [address], [place] [address]- 6583 Jan, [facility] [address], [place] [address]- 2315 Jan, [facility] [address], [place] [address]- 8254 Jan, Type 2 diabetes mellitus with unspecified complications E11.8 ; Essential hypertension I10 and Vitamin D deficiency E55.9 [facility] [address], [place] [address]- 1111 Dec, Type 2 diabetes mellitus with unspecified complications E11.8 ; Essential hypertension I10 ; Other chronic pain G89.29 ; Anxiety associated with depression F41.8 ; Bronchitis J40 ; Vitamin D deficiency E55.9 and COPD (chronic obstructive pulmonary disease) J44.9 [facility] [address], [place] [address]- 6289 Nov, [facility] [address], [place] [address]- 2369 October, [facility] [address], [place] [address]- 8671 October, [facility] [address], [place] [address]- 6078 October, [facility] [address], [place] [address]- 5822 October, Dysuria R30.0 ; Bronchitis J40 ; Anxiety associated with depression F41.8 and Type 2 diabetes mellitus with unspecified complications E11.8 [facility] [address], [place] [address]- 3004 October, Chronic renal insufficiency N18.9 ; Elevated white blood cell count D72.829 and Frequent UTI N39.0 [facility] [id number] [place] [address] 66817- 5433 October, Chronic renal insufficiency N18.9 ; Elevated white blood cell count D72.829 and Frequent UTI N39.0 [facility] [id number] [place] [address] 14929- 0983 October, [facility] [id number] [place] [address] 14961- 1019 Sep, Type 2 diabetes mellitus with unspecified complications E11.8 ; Essential hypertension I10 ; COPD (chronic obstructive pulmonary disease ) J44.9 and Hospital discharge follow-up Z09 [facility] [id number] [place] [address] 35692- 4620 Sep, [id number] [place] [address] 80734- 2022 Sep, Dyspnea R06.00 ; Other chronic pain G89.29 ; Dysuria R30.0 ; Diaphoresis R61 ; Jaundice R17 ; COPD (chronic obstructive pulmonary disease) J44.9 ; Type 2 diabetes mellitus with unspecified complications E11.8 ; Excessive daytime sleepiness G47.19 and Oliguria R34 [address] [place] [address] 26958- 2245 Sep, [address] [place] [address] 77999- 5719 Sep, Essential hypertension I10 ; Anxiety associated with depression F41.8 ; Mixed hyperlipidemia E78.2 ; Dyspnea R06.00 ; Shortness of breath R06.02 and Chest pain, unspecified R07.9 [address] [place] [address] 77799- 0374 Sep, Chest pain R07.9 ; Hyperlipemia E78.5 ; Type 2 diabetes mellitus with unspecified complications E11.8 ; Essential hypertension I10 ; Other chronic pain G89.29 ; Anxiety associated with depression F41.8 ; COPD ( chronic obstructive pulmonary disease) J44.9 ; Low vitamin D level E55.9 ; Tobacco abuse Z72.0 ; Hypertriglyceridemia E78.1 and Abnormal laboratory test R89.9 [facility] [id number] [place] [address] 45902- 9011 Aug, Pneumonia J18.9 ; Hypertriglyceridemia E78.1 ; COPD ( chronic obstructive pulmonary disease) J44.9 and Hyperlipidemia E78.5 [id number] [place] [address] 32612- 2241 Aug, Shortness of breath R06.02 ; Anxiety associated with depression F41.8 and Chest pain, unspecified R07.9 [id number] [place] [address] 54744- 2559 Jul, [address] 81062- 7569 Jun, Anxiety associated with depression F41.8 ; [...] unspecified type R11.2 and Tobacco abuse Z72.0 [facility] [id number] [place] [address] 49421- 2883 May, Hyperlipemia E78.5 [id number] [place] [address] 66063- 9734 May, [facility] [id number] [place] [address] 13230- 4283 May, Type 2 diabetes mellitus with unspecified complications E11.8 [id number] [place] [address] 18994- 0450 May, [id number] [place] [address] 94529- 9344 May, Anxiety associated with depression F41.8 ; Type 2 diabetes mellitus with unspecified complications E11.8 ; Essential hypertension I10 ; Peripheral neuropathy G62.9 ; Low back pain M54.5 ; Other chronic pain G89.29 ; GERD (gastroesophageal reflux disease) K21.9 ; Insomnia G47.00 ; COPD (chronic obstructive pulmonary disease) J44.9 ; URI (upper respiratory infection) J06.9 and Depression F32.[address] 80763- 4008 May, Low back pain M54.5 ; Anxiety about health F41.8 ; Generalized anxiety disorder F41.1 and Acute stress reaction F43.[address] 32087- 5917 May, [id number] [place] [address] 46380- 9433 Apr, Diabetes E11.9 ; Type 2 diabetes mellitus with unspecified complications E11.8 ; Essential hypertension I10 ; Peripheral neuropathy G62.9 ; Low back pain M54.5 ; Other chronic pain G89.29 ; GERD (gastroesophageal reflux disease) K21.9 ; Anxiety associated with depression F41.8 ; Muscle spasm of calf M62.831 ; Insomnia G47.00 and COPD (chronic obstructive pulmonary disease) J44.9 [address] [place] [address] 71153- 8906 May, [address] 12569- 7952 May, IMMUNIZATIONS No Known Immunizations SOCIAL HISTORY Never Assessed REASON FOR VISIT New Refill Request 12/18 PLAN OF CARE VITAL SIGNS MEDICATIONS Medication Instructions Dosage Frequency Start Date End Date Duration Status Hydrocodone-Acetaminophen 5-325 MG Orally twice a day 1 tablet as needed 12Dec, 28 days Active Xanax 0.5 MG Orally 3 times a day PRN 1 tablet 28 days Active RESULTS No [...]
--- OUTSIDE RECORDS SUMMARY | 2018-02-19 16:53 | XMS REPORT ---
Author Author KATIE JEFFRIES Organization [facility] Address [address] [place] [address] Care Team Providers Care Electrocardiograph Repairer Name Role Phone KATIE JEFFRIES Unavailable PROBLEMS Type Condition ICD9-CM Code MSH24-YC Code Onset Dates Condition Status SNOMED Code Problem Other chronic pain G89.29 Active 87975597 Problem Insomnia G47.00 Active 701374951 Problem Type 2 diabetes mellitus with unspecified complications E11.8 Active 59607709 Problem Constipation by delayed colonic transit K59.01 Active 94429953 Problem Chronic kidney disease (CKD) stage G3b/A1, moderately decreased glomerular filtration rate (GFR) between 30-44 mL/min/1.73 square meter and albuminuria creatinine ratio less than 30 mg/g N18.3 Active 935548271 Problem Mixed hyperlipidemia E78.2 Active 728477041 Problem Controlled substance agreement signed Z79.899 Active 150969152 Problem 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 Active 74498927 Problem Vitamin D deficiency E55.9 Active 14712619 Problem Peripheral neuropathy G62.9 Active 90967413 Problem Essential hypertension I10 Active 52795311 Problem Osteoarthritis of acromioclavicular joint M19.019 Active 517167278 Problem COPD (chronic obstructive pulmonary disease) J44.9 Active 44050786 Problem Anxiety associated with depression F41.8 Active 381768561 Problem GERD (gastroesophageal reflux disease) K21.9 Active [id number] ALLERGIES No Information ENCOUNTERS Encounter Location Date Diagnosis [facility] [id number], [place] [address] Jan, [facility] [address], [place] [address] Jan, Type 2 diabetes mellitus with unspecified complications E11.8 [facility] [id number], [place] [address] Jan, [facility] [address], [place] [address] Jan, Other chronic pain G89.29 and Anxiety associated with depression F41.8 [facility] [address] [address] Jan, [facility] [id number] [place] [address] 16127- 3641 Dec, [facility] [id number] [place] [address] 93434- 0186 Dec, Type 2 diabetes mellitus with unspecified [...] and 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 [facility] [id number] [place] [address] 51413- 5481 Dec, [facility] [id number] [place] [address] 27018- 1963 Dec, Type 2 diabetes mellitus with unspecified complications E11.8 [facility] [address], [place] [address] Dec, [facility] [id number] [place] [address] 96430- 1174 Dec, Type 2 diabetes mellitus with unspecified complications E11.8 [facility] [id number] [place] [address] 38505- 8258 Dec, Type 2 diabetes mellitus with unspecified complications E11.8 [facility] [address] [address] 6709 Dec, [facility] [address] [place] [address] 7152 Dec, Type 2 diabetes mellitus with unspecified complications E11.8 [facility] [address], [place] [address] 65[address] Dec, [facility] [address], [place] [address] Dec, [facility] [id number] [place] [address] 33691- 2670 Dec, [facility] [address], [place] [address] 3300 Dec, [facility] [id number] [place] [address] 20216- 1792 Dec, [facility] [address], [place] [address] 2776 Dec, Other chronic pain G89.29 and Anxiety associated with depression F41.8 [facility] [address], [place] [address] 7948 Dec, Type 2 diabetes mellitus with unspecified complications E11.8 [facility] [address], [place] [address] 9541 Nov, [facility] [address], [place] [address]- 2989 Nov, [facility] [address], [place] [address]- 3743 Nov, [facility] [address], [place] [address] 2718 Nov, [facility] [address] [address] 7875 Nov, Type 2 diabetes mellitus with unspecified complications E11.8 [facility] [address], [place] [address]- 2679 Nov, [facility] [address], [place] [address]- 0186 Nov, Type 2 diabetes mellitus with unspecified complications E11.8 [facility] [address], [place] [address]- 8979 11 Nov, 2017 Other chronic pain G89.29 and Anxiety associated with depression F41.8 [facility] [address], [place] [address]- 66[address] 08 Nov, 2017 Chronic renal insufficiency N18.9 [facility] [address], [place] [address] 07 Nov, 2017 Other chronic pain G89.29 [facility] [address], [place] [address] 2206 Nov, Type 2 diabetes mellitus with unspecified complications E11.8 [facility] [address], [place] [address] 8675 October, [facility] [address], [place] [address]- 5992 October, [facility] [address], [place] [address]- 4231 October, Type 2 diabetes mellitus with unspecified complications E11.8 [facility] [address], [place] [address]- 3962 October, [facility] [address], [place] [address]- 6481 October, [facility] [address], [place] [address]- 2978 October, Type 2 diabetes mellitus with unspecified complications E11.8 [facility] [address], [place] [address]- 4594 October, [facility] [address], [place] [address]- 2046 October, [facility] [address], [place] [address]- 2137 October, Type 2 diabetes mellitus with unspecified complications E11.8 [facility] [id number] [place] [address] 81627- 4343 October, Type 2 diabetes mellitus with unspecified complications E11.8 ; Essential hypertension I10 ; Chronic renal insufficiency N18.9 ; BMI 40.0-44.9, adult Z68.41 ; Other chronic pain G89.29 ; Anxiety associated with depression F41.8 and Right medial knee pain M25.561 [facility] [address] [address]- 3220 October, GERD (gastroesophageal reflux disease) K21.9 and Anxiety associated with depression F41.8 [facility] [address] 0[address]- 6432 October, Anxiety associated with depression F41.8 [facility] [address] 76159- 9984 Sep, [facility] [address] 19028- 5760 Sep, GERD (gastroesophageal reflux disease) K21.9 and Anxiety associated with depression F41.8 [facility] [address] 30880- 6691 Aug, [facility] [id number] [place] [address] 13653- 3085 Aug, [facility] [id number] [place] [address] 74462 -3886 Aug, Acute recurrent maxillary sinusitis J01.01 [facility] [id number] [place] [address] 74315- 4065 Aug, [facility] [address] 90444- 7365 Aug, GERD (gastroesophageal reflux disease) K21.9 and Other chronic pain G89.29 [facility] [address] 49296- 1888 Aug, [facility] [address], [place] [address] Aug, [facility] [id number] [place] [address] 62818- 7192 Aug, Controlled substance agreement signed Z79.899 ; [...] and Enlarged lymph nodes in armpit R59.0 [facility] [id number] [place] [address] 09220- 5794 Aug, Anxiety associated with depression F41.8 and GERD ( gastroesophageal reflux disease) K21.9 [facility] [id number] [place] [address] 27667- 9781 Jul, Controlled substance agreement signed Z79.899 [facility] [id number] [place] [address] 48867- 6546 Jun, Anxiety associated with depression F41.8 and GERD ( gastroesophageal reflux disease) K21.9 [facility] [id number] [place] [address] 06428- 2318 May, Anxiety associated with depression F41.8 and GERD ( gastroesophageal reflux disease) K21.9 [facility] [address] [place] [address] 80922- 0469 Apr, Mixed hyperlipidemia E78.2 [facility] [id number] [place] [address] 56207- 5880 Apr, Anxiety associated with depression F41.8 and GERD ( gastroesophageal reflux disease) K21.9 [facility] [id number] [place] [address] 02891- 5161 Apr, [facility] [address], [place] [address]- 1277 Apr, Type 2 diabetes mellitus with unspecified complications E11.8 [facility] [address], [place] [address]- 0746 Apr, [facility] [address] [place] [address] 73168- 6691 Apr, Type 2 diabetes mellitus with unspecified complications E11.8 [facility] [id number] [place] [address] 16128- 9519 Apr, [facility] [id number] [place] [address] 84347- 9636 Mar, GERD (gastroesophageal reflux disease) K21.9 and Anxiety associated with depression F41.8 [facility] [id number] [place] [address] 98002- 9480 Mar, 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 [facility] [id number] [place] [address] 62909- 3429 Mar, Essential hypertension I10 ; Anxiety associated with depression F41.8 ; COPD (chronic obstructive pulmonary disease) J44.9 ; Mixed hyperlipidemia E78.2 ; Vitamin D deficiency E55.9 ; GERD (gastroesophageal reflux disease) K21.9 ; Type 2 diabetes mellitus with unspecified complications E11.8 ; Other chronic pain G89.29 and Chronic renal insufficiency N18.9 [facility] [address] [place] [address] 51226- 6729 Mar, Chronic renal insufficiency N18.9 [facility] [id number] [place] [address] 64194- 8210 Feb, GERD (gastroesophageal reflux disease) K21.9 and Type 2 diabetes mellitus with unspecified complications E11.8 [facility] [address], [place] [address]- 6357 Feb, Anxiety associated with depression F41.8 and Tear of left supraspinatus tendon, subsequent encounter S46.812D [facility] [facility] [address], [place] [address]- 5087 Jan, Pre-operative examination for internal medicine Z01.818 [facility] [id number] [place] [address] 80267- 7243 Jan, Anxiety associated with depression F41.8 and Left anterior shoulder pain M25.512 [facility] [id number] [place] [address] 83311- 6629 Jan, [facility] [id number] [place] [address] 01233- 2986 Jan, [facility] [id number] [place] [address] 25003- 7378 Jan, Type 2 diabetes mellitus with unspecified complications E11.8 ; Essential hypertension I10 ; Other chronic pain G89.29 ; GERD ( gastroesophageal reflux disease) K21.9 ; Anxiety associated with depression F41.8 ; Insomnia G47.00 ; Hypertriglyceridemia E78.1 ; Left anterior shoulder pain M25.512 and Tobacco abuse Z72.0 [facility] [id number] [place] [address] 24810- 6599 Dec, Anxiety associated with depression F41.8 and Tear of left supraspinatus tendon, subsequent encounter S46.812D [facility] [address] [place] [address] 21102- 9778 Nov, [facility] [id number] [place] [address] 21326- 0004 Nov, Anxiety associated with depression F41.8 and Tear of left supraspinatus tendon, subsequent encounter S46.812D [facility] [id number] [place] [address] 65074- 6185 05 Nov, 2016 Abnormal lung sounds R09.89 and COPD (chronic obstructive pulmonary disease) with acute bronchitis J44.0 [facility] [id number] [place] [address] 66570- 8431 Nov, [facility] [id number] [place] [address] 82738- 8834 October, COPD (chronic obstructive pulmonary disease) with acute bronchitis J44.0 ; Abnormal lung sounds R09.89 and Medication refill Z76.0 [facility] [id number] [place] [address] 88403- 3815 October, Anxiety associated with depression F41.8 [facility] [address] 50417- 9383 Sep, Nausea and vomiting, unspecified intactability, vomiting of unspecified type R11.2 [facility] [address] 32909- 4845 Sep, COPD (chronic obstructive pulmonary disease) J44.9 ; Tobacco abuse Z72.0 ; Tear of left supraspinatus tendon, subsequent encounter S46.812D and Type 2 diabetes mellitus with unspecified complications E11.8 [facility] [id number] [place] [address] 98771- 8630 Sep, [facility] [address] 66838- 0179 Aug, Left anterior shoulder pain M25.512 [facility] [id number] [place] [address] 56711- 3205 Aug, Left anterior shoulder pain M25.512 and Low back pain M54.5 [facility] [id number] [place] [address] 76255- 4929 Aug, [facility] [id number] [place] [address] 05206- 4893 Aug, [facility] [facility] [address] 81723- 1995 Aug, [facility] [id number] [place] [address] 06120- 8949 Aug, [facility] [address] [place] [address]- 9079 Aug, Type 2 diabetes mellitus with unspecified complications E11.8 [facility] [address] 23298- 1517 Aug, Type 2 diabetes mellitus with unspecified [...] E55.9 and GERD (gastroesophageal reflux disease) K21.9 [facility] [address] 11243- 6285 Aug, [facility] [address] 96323- 5486 May, [facility] [address] 44275- 3203 Apr, [facility] [facility] [address] 07427- 7278 Apr, Type 2 diabetes mellitus with unspecified [...] S49.92XA and Anxiety associated with depression F41.8 [facility] [facility] [address] 66348- 0831 Apr, [facility] [address] 05093- 9412 Apr, [facility] [facility] [address] 31687- 7904 Apr, [facility] [id number], [place] [address]- 7552 Mar, [facility] [address], [place] [address]- 8928 Feb, [facility] [address], [place] [address]- 0504 Feb, [facility] [address], [place] [address]- 2721 Jan, [facility] [address], [place] [address]- 1289 Jan, [facility] [address], [place] [address]- 6993 Jan, Type 2 diabetes mellitus with unspecified complications E11.8 ; Essential hypertension I10 and Vitamin D deficiency E55.9 [facility] [address], [place] [address]- 6415 Dec, Type 2 diabetes mellitus with unspecified complications E11.8 ; Essential hypertension I10 ; Other chronic pain G89.29 ; Anxiety associated with depression F41.8 ; Bronchitis J40 ; Vitamin D deficiency E55.9 and COPD (chronic obstructive pulmonary disease) J44.9 [facility] [address], [place] [address]- 3064 Nov, [facility] [address], [place] [address]- 5087 October, [facility] [address], [place] [address]- 7256 October, [facility] [address], [place] [address]- 5544 October, [facility] [address], [place] [address]- 0267 October, Dysuria R30.0 ; Bronchitis J40 ; Anxiety associated with depression F41.8 and Type 2 diabetes mellitus with unspecified complications E11.8 [facility] [address], [place] [address]- 3529 October, Chronic renal insufficiency N18.9 ; Elevated white blood cell count D72.829 and Frequent UTI N39.0 [facility] [id number] [place] [address] 94042- 2746 October, Chronic renal insufficiency N18.9 ; Elevated white blood cell count D72.829 and Frequent UTI N39.0 [facility] [id number] [place] [address] 40675- 4837 October, [facility] [id number] [place] [address] 78680- 1399 Sep, Type 2 diabetes mellitus with unspecified complications E11.8 ; Essential hypertension I10 ; COPD (chronic obstructive pulmonary disease ) J44.9 and Hospital discharge follow-up Z09 [facility] [id number] [place] [address] 63695- 5249 Sep, [id number] [place] [address] 03423- 9778 Sep, Dyspnea R06.00 ; Other chronic pain G89.29 ; Dysuria R30.0 ; Diaphoresis R61 ; Jaundice R17 ; COPD (chronic obstructive pulmonary disease) J44.9 ; Type 2 diabetes mellitus with unspecified complications E11.8 ; Excessive daytime sleepiness G47.19 and Oliguria R34 [address] [place] [address] 43739- 0007 Sep, [address] [place] [address] 07958- 9984 Sep, Essential hypertension I10 ; Anxiety associated with depression F41.8 ; Mixed hyperlipidemia E78.2 ; Dyspnea R06.00 ; Shortness of breath R06.02 and Chest pain, unspecified R07.[address] [place] [address] 86508- 8786 Sep, Chest pain R07.9 ; Hyperlipemia E78.5 ; Type 2 diabetes mellitus with unspecified complications E11.8 ; Essential hypertension I10 ; Other chronic pain G89.29 ; Anxiety associated with depression F41.8 ; COPD ( chronic obstructive pulmonary disease) J44.9 ; Low vitamin D level E55.9 ; Tobacco abuse Z72.0 ; Hypertriglyceridemia E78.1 and Abnormal laboratory test R89.9 [facility] [id number] [place] [address] 45968- 6732 Aug, Pneumonia J18.9 ; Hypertriglyceridemia E78.1 ; COPD ( chronic obstructive pulmonary disease) J44.9 and Hyperlipidemia E78.5 [id number] [place] [address] 97723- 9235 Aug, Shortness of breath R06.02 ; Anxiety associated with depression F41.8 and Chest pain, unspecified R07.9 [address] [id number] [place] [address] 93617- 4602 Jul, [address] 97114- 4074 Jun, Anxiety associated with depression F41.8 ; [...] unspecified type R11.2 and Tobacco abuse Z72.0 [facility] [id number] [place] [address] 35161- 2025 May, Hyperlipemia E78.5 [address] [place] [id number] [place] [address] 58962- 1447 May, [facility] [id number] [place] [address] 80780- 4608 May, Type 2 diabetes mellitus with unspecified complications E11.8 [id number] [place] [address] 77412- 8090 May, [address] 63766- 3496 May, Anxiety associated with depression F41.8 ; Type 2 diabetes mellitus with unspecified complications E11.8 ; Essential hypertension I10 ; Peripheral neuropathy G62.9 ; Low back pain M54.5 ; Other chronic pain G89.29 ; GERD (gastroesophageal reflux disease) K21.9 ; Insomnia G47.00 ; COPD (chronic obstructive pulmonary disease) J44.9 ; URI (upper respiratory infection) J06.9 and Depression F32.[address] 48961- 1310 May, Low back pain M54.5 ; Anxiety about health F41.8 ; Generalized anxiety disorder F41.1 and Acute stress reaction F43.[address] 06268- 9444 May, [address] [id number] [place] [address] 40621- 7324 Apr, Diabetes E11.9 ; Type 2 diabetes mellitus with unspecified complications E11.8 ; Essential hypertension I10 ; Peripheral neuropathy G62.9 ; Low back pain M54.5 ; Other chronic pain G89.29 ; GERD (gastroesophageal reflux disease) K21.9 ; Anxiety associated with depression F41.8 ; Muscle spasm of calf M62.831 ; Insomnia G47.00 and COPD (chronic obstructive pulmonary disease) J44.9 [address] [place] [address] 21566- 0052 May, [address] 99386- 2059 May, IMMUNIZATIONS No Known Immunizations SOCIAL HISTORY Never Assessed REASON FOR VISIT medication and insurance PLAN OF CARE VITAL SIGNS MEDICATIONS Unknown [...]
--- OUTSIDE RECORDS SUMMARY | 2018-02-19 16:54 | XMS REPORT ---
Author Author KATIE JEFFRIES Organization [facility] Address [address] [place] [address] Care Team Providers Care Bulk Clerk Name Role Phone KATIE JEFFRIES Unavailable PROBLEMS Type Condition ICD9-CM Code TPK27-FC Code Onset Dates Condition Status SNOMED Code Problem Other chronic pain G89.29 Active 77532276 Problem Insomnia G47.00 Active 656270234 Problem Type 2 diabetes mellitus with unspecified complications E11.8 Active 20097046 Problem Constipation by delayed colonic transit K59.01 Active 23871696 Problem Chronic kidney disease (CKD) stage G3b/A1, moderately decreased glomerular filtration rate (GFR) between 30-44 mL/min/1.73 square meter and albuminuria creatinine ratio less than 30 mg/g N18.3 Active 900407622 Problem Mixed hyperlipidemia E78.2 Active 198473135 Problem Controlled substance agreement signed Z79.899 Active 443031839 Problem 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 Active 69813055 Problem Vitamin D deficiency E55.9 Active 21934889 Problem Peripheral neuropathy G62.9 Active 39598193 Problem Essential hypertension I10 Active 49241934 Problem Osteoarthritis of acromioclavicular joint M19.019 Active 572815624 Problem COPD (chronic obstructive pulmonary disease) J44.9 Active 33317632 Problem Anxiety associated with depression F41.8 Active 397740369 Problem GERD (gastroesophageal reflux disease) K21.9 Active 590848295 ALLERGIES No Information ENCOUNTERS Encounter Location Date Diagnosis [facility] [id number] [address] Jan, [facility] [address] [address] Jan, Type 2 diabetes mellitus with unspecified complications E11.8 [facility] [id number] [address] Jan, [facility] [address], [place] [address] Jan, Other chronic pain G89.29 and Anxiety associated with depression F41.8 [facility] [id number] [address] Jan, [facility] [facility] [id number] [place] [address] 75355- 2136 Dec, [facility] [facility] [id number] [place] [address] 58422- 8005 Dec, Type 2 diabetes mellitus with unspecified [...] and 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 [facility] [id number] [place] [address] 35269- 6030 Dec, [facility] [facility] [id number] [place] [address] 11855- 2314 Dec, Type 2 diabetes mellitus with unspecified complications E11.8 [facility] [address] [address] Dec, [facility] [id number] [place] [address] 39228- 8744 Dec, Type 2 diabetes mellitus with unspecified complications E11.8 [facility] [id number] [place] [address] 96572- 9576 Dec, Type 2 diabetes mellitus with unspecified complications E11.8 [facility] [id number] [address] 0988 Dec, [facility] [facility] [id number] [address] 0427 Dec, Type 2 diabetes mellitus with unspecified complications E11.8 [facility] [address], [place] [address] 67[address] Dec, [facility] [address], [place] [address] 1855 Dec, [facility] [id number] [place] [address] 68549- 0249 Dec, [facility] [address] [address] 8491 Dec, [facility] [id number] [place] [address] 53149- 7905 Dec, [facility] [id number] [address] 0264 Dec, Other chronic pain G89.29 and Anxiety associated with depression F41.8 [facility] [address], [place] [address] 5[address] Dec, Type 2 diabetes mellitus with unspecified complications E11.8 [facility] [address] [address] 2578 Nov, [facility] [address] [address]- 5554 Nov, [facility] [address], [place] [address] 7531 Nov, [facility] [address] [address]- 9678 Nov, [facility] [id number] [address] 3284 Nov, Type 2 diabetes mellitus with unspecified complications E11.8 [facility] [address] [address]- 5985 Nov, [facility] [address] [address] 9329 Nov, Type 2 diabetes mellitus with unspecified complications E11.8 [facility] [address] [address]- 8582 11 Nov, 2017 Other chronic pain G89.29 and Anxiety associated with depression F41.8 [facility] [address], [place] [address] 4[address] 08 Nov, 2017 Chronic renal insufficiency N18.9 [facility] [id number] [address] 8688 07 Nov, 2017 Other chronic pain G89.29 [facility] [id number] [address] 4957 Nov, Type 2 diabetes mellitus with unspecified complications E11.8 [facility] [address] [address] 9841 October, [facility] [address] [address] 1932 October, [facility] [address], [place] [address] 7672 October, Type 2 diabetes mellitus with unspecified complications E11.8 [facility] [address] [address] 2830 October, [facility] [address], [place] [address]- 0352 October, [facility] [address], [place] [address]- 5472 October, Type 2 diabetes mellitus with unspecified complications E11.8 [facility] [address] [address]- 5965 October, [facility] [address] [address]- 7391 October, [facility] [address], [place] [address]- 4663 October, Type 2 diabetes mellitus with unspecified complications E11.8 [facility] [id number] [place] [address] 75751- 0098 October, Type 2 diabetes mellitus with unspecified complications E11.8 ; Essential hypertension I10 ; Chronic renal insufficiency N18.9 ; BMI 40.0-44.9, adult Z68.41 ; Other chronic pain G89.29 ; Anxiety associated with depression F41.8 and Right medial knee pain M25.561 [place] [address] [address]- 6828 October, GERD (gastroesophageal reflux disease) K21.9 and Anxiety associated with depression F41.8 [facility] [address] 06898- 8166 October, Anxiety associated with depression F41.8 [facility] [facility] [address] 55853- 5688 Sep, [place] [address] 07026- 0192 Sep, GERD (gastroesophageal reflux disease) K21.9 and Anxiety associated with depression F41.8 [address] [address] 13326- 5006 Aug, [facility] [facility] [id number] [place] [address] 25530- 0590 Aug, [facility] [id number] [place] [address] 60227 -8093 Aug, Acute recurrent maxillary sinusitis J01.01 [facility] [facility] [id number] [place] [address] 83974- 6454 Aug, [place] [address] 20586- 8517 Aug, GERD (gastroesophageal reflux disease) K21.9 and Other chronic pain G89.29 [place] [address] 34154- 7046 Aug, [facility] [address] [address] Aug, [facility] [id number] [place] [address] 35350- 9078 Aug, Controlled substance agreement signed Z79.899 ; [...] and Enlarged lymph nodes in armpit R59.0 [facility] [id number] [place] [address] 13060- 3523 Aug, Anxiety associated with depression F41.8 and GERD ( gastroesophageal reflux disease) K21.9 [facility] [id number] [place] [address] 70691- 2834 Jul, Controlled substance agreement signed Z79.899 [facility] [id number] [place] [address] 32902- 7880 Jun, Anxiety associated with depression F41.8 and GERD ( gastroesophageal reflux disease) K21.9 [facility] [id number] [place] [address] 77903- 7455 May, Anxiety associated with depression F41.8 and GERD ( gastroesophageal reflux disease) K21.9 [facility] [address] [place] [address] 99059- 7278 Apr, Mixed hyperlipidemia E78.2 [facility] [id number] [place] [address] 01026- 9744 Apr, Anxiety associated with depression F41.8 and GERD ( gastroesophageal reflux disease) K21.9 [facility] [id number] [place] [address] 16382- 9522 Apr, [address] [address], [place] [address]- 5161 Apr, Type 2 diabetes mellitus with unspecified complications E11.8 [facility] [facility] [address], [place] [address]- 1063 Apr, [address] [address] [place] [address] 14229- 1243 Apr, Type 2 diabetes mellitus with unspecified complications E11.8 [facility] [id number] [place] [address] 02729- 6303 Apr, [facility] [facility] [id number] [place] [address] 14692- 0214 Mar, GERD (gastroesophageal reflux disease) K21.9 and Anxiety associated with depression F41.8 [facility] [facility] [id number] [place] [address] 70982- 9207 Mar, 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 [facility] [id number] [place] [address] 39601- 8098 Mar, Essential hypertension I10 ; Anxiety associated with depression F41.8 ; COPD (chronic obstructive pulmonary disease) J44.9 ; Mixed hyperlipidemia E78.2 ; Vitamin D deficiency E55.9 ; GERD (gastroesophageal reflux disease) K21.9 ; Type 2 diabetes mellitus with unspecified complications E11.8 ; Other chronic pain G89.29 and Chronic renal insufficiency N18.9 [place] [address] [place] [address] 97276- 5170 Mar, Chronic renal insufficiency N18.9 [facility] [id number] [place] [address] 12764- 5301 Feb, GERD (gastroesophageal reflux disease) K21.9 and Type 2 diabetes mellitus with unspecified complications E11.8 [facility] [facility] [address], [place] [address]- 7904 Feb, Anxiety associated with depression F41.8 and Tear of left supraspinatus tendon, subsequent encounter S46.812D [facility] [facility] [address] [address]- 8645 Jan, Pre-operative examination for internal medicine Z01.818 [facility] [id number] [place] [address] 86136- 6879 Jan, Anxiety associated with depression F41.8 and Left anterior shoulder pain M25.512 [facility] [facility] [id number] [place] [address] 41159- 6897 Jan, [facility] [facility] [id number] [place] [address] 46409- 0115 Jan, [place] [facility] [id number] [place] [address] 67674- 1221 Jan, Type 2 diabetes mellitus with unspecified complications E11.8 ; Essential hypertension I10 ; Other chronic pain G89.29 ; GERD ( gastroesophageal reflux disease) K21.9 ; Anxiety associated with depression F41.8 ; Insomnia G47.00 ; Hypertriglyceridemia E78.1 ; Left anterior shoulder pain M25.512 and Tobacco abuse Z72.0 [facility] [facility] [id number] [place] [address] 43691- 6024 Dec, Anxiety associated with depression F41.8 and Tear of left supraspinatus tendon, subsequent encounter S46.812D [facility] [address] [place] [address] 65387- 4811 Nov, [facility] [facility] [id number] [place] [address] 42261- 9998 Nov, Anxiety associated with depression F41.8 and Tear of left supraspinatus tendon, subsequent encounter S46.812D [facility] [facility] [id number] [place] [address] 08711- 4217 05 Nov, 2016 Abnormal lung sounds R09.89 and COPD (chronic obstructive pulmonary disease) with acute bronchitis J44.0 [place] [facility] [id number] [place] [address] 83649- 5666 Nov, [place] [facility] [id number] [place] [address] 90196- 7976 October, COPD (chronic obstructive pulmonary disease) with acute bronchitis J44.0 ; Abnormal lung sounds R09.89 and Medication refill Z76.0 [facility] [id number] [place] [address] 22403- 7700 October, Anxiety associated with depression F41.8 [address] [facility] [address] 22261- 5629 Sep, Nausea and vomiting, unspecified intactability, vomiting of unspecified type R11.2 [facility] [address] 08703- 6987 Sep, COPD (chronic obstructive pulmonary disease) J44.9 ; Tobacco abuse Z72.0 ; Tear of left supraspinatus tendon, subsequent encounter S46.812D and Type 2 diabetes mellitus with unspecified complications E11.8 [facility] [id number] [place] [address] 38835- 6133 Sep, [facility] [facility] [address] 60178- 2994 Aug, Left anterior shoulder pain M25.512 [facility] [facility] [id number] [place] [address] 95499- 3940 Aug, Left anterior shoulder pain M25.512 and Low back pain M54.5 [facility] [facility] [id number] [place] [address] 24109- 1421 Aug, [facility] [facility] [id number] [place] [address] 50962- 3769 Aug, [place] [address] 42614- 3734 Aug, [place] [facility] [id number] [place] [address] 34367- 2947 Aug, [place] [address] [place] [address]- 1628 Aug, Type 2 diabetes mellitus with unspecified complications E11.8 [facility] [facility] [address] 09850- 8103 Aug, Type 2 diabetes mellitus with unspecified [...] E55.9 and GERD (gastroesophageal reflux disease) K21.9 [facility] [facility] [address] 50328- 8036 Aug, [place] [address] 37515- 6813 May, [place] [address] 01809- 2407 Apr, [place] [address] 46027- 6397 Apr, Type 2 diabetes mellitus with unspecified [...] S49.92XA and Anxiety associated with depression F41.8 [place] [address] 57041- 4698 Apr, [place] [address] 65912- 4522 Apr, [place] [facility] [address] 47395- 7946 Apr, [facility] [id number] [address]- 1295 Mar, [facility] [address], [place] [address]- 6353 Feb, [facility] [address], [place] [address]- 0100 Feb, [facility] [address], [place] [address]- 6444 Jan, [facility] [address], [place] [address]- 6514 Jan, [facility] [address], [place] [address]- 8760 Jan, Type 2 diabetes mellitus with unspecified complications E11.8 ; Essential hypertension I10 and Vitamin D deficiency E55.9 [facility] [address], [place] [address]- 3414 Dec, Type 2 diabetes mellitus with unspecified complications E11.8 ; Essential hypertension I10 ; Other chronic pain G89.29 ; Anxiety associated with depression F41.8 ; Bronchitis J40 ; Vitamin D deficiency E55.9 and COPD (chronic obstructive pulmonary disease) J44.9 [facility] [address], [place] [address]- 2229 Nov, [facility] [address], [place] [address]- 8974 October, [facility] [address], [place] [address]- 8966 October, [facility] [address], [place] [address]- 7039 October, [facility] [address], [place] [address]- 4225 October, Dysuria R30.0 ; Bronchitis J40 ; Anxiety associated with depression F41.8 and Type 2 diabetes mellitus with unspecified complications E11.8 [facility] [address], [place] [address]- 6417 October, Chronic renal insufficiency N18.9 ; Elevated white blood cell count D72.829 and Frequent UTI N39.0 [facility] [id number] [place] [address] 29412- 0231 October, Chronic renal insufficiency N18.9 ; Elevated white blood cell count D72.829 and Frequent UTI N39.0 [facility] [facility] [id number] [place] [address] 39626- 4650 October, [facility] [id number] [place] [address] 87796- 5028 Sep, Type 2 diabetes mellitus with unspecified complications E11.8 ; Essential hypertension I10 ; COPD (chronic obstructive pulmonary disease ) J44.9 and Hospital discharge follow-up Z09 [facility] [id number] [place] [address] 77223- 3655 Sep, [id number] [place] [address] 97071- 4065 Sep, Dyspnea R06.00 ; Other chronic pain G89.29 ; Dysuria R30.0 ; Diaphoresis R61 ; Jaundice R17 ; COPD (chronic obstructive pulmonary disease) J44.9 ; Type 2 diabetes mellitus with unspecified complications E11.8 ; Excessive daytime sleepiness G47.19 and Oliguria R34 [address] [place] [address] 09786- 0099 Sep, [address] [place] [address] 17593- 4650 Sep, Essential hypertension I10 ; Anxiety associated with depression F41.8 ; Mixed hyperlipidemia E78.2 ; Dyspnea R06.00 ; Shortness of breath R06.02 and Chest pain, unspecified R07.9 [address] [place] [address] 26934- 8980 Sep, Chest pain R07.9 ; Hyperlipemia E78.5 ; Type 2 diabetes mellitus with unspecified complications E11.8 ; Essential hypertension I10 ; Other chronic pain G89.29 ; Anxiety associated with depression F41.8 ; COPD ( chronic obstructive pulmonary disease) J44.9 ; Low vitamin D level E55.9 ; Tobacco abuse Z72.0 ; Hypertriglyceridemia E78.1 and Abnormal laboratory test R89.9 [facility] [facility] [id number] [place] [address] 67715- 7271 Aug, Pneumonia J18.9 ; Hypertriglyceridemia E78.1 ; COPD ( chronic obstructive pulmonary disease) J44.9 and Hyperlipidemia E78.5 [id number] [place] [address] 17319- 6635 Aug, Shortness of breath R06.02 ; Anxiety associated with depression F41.8 and Chest pain, unspecified R07.9 [id number] [place] [address] 32377- 2604 Jul, [address] 15774- 0514 Jun, Anxiety associated with depression F41.8 ; [...] unspecified type R11.2 and Tobacco abuse Z72.0 [place] [facility] [id number] [place] [address] 12906- 5795 May, Hyperlipemia E78.5 [id number] [place] [address] 35560- 1453 May, [facility] [facility] [id number] [place] [address] 43870- 0192 May, Type 2 diabetes mellitus with unspecified complications E11.8 [id number] [place] [address] 35388- 7289 May, [address] 57923- 3456 May, Anxiety associated with depression F41.8 ; Type 2 diabetes mellitus with unspecified complications E11.8 ; Essential hypertension I10 ; Peripheral neuropathy G62.9 ; Low back pain M54.5 ; Other chronic pain G89.29 ; GERD (gastroesophageal reflux disease) K21.9 ; Insomnia G47.00 ; COPD (chronic obstructive pulmonary disease) J44.9 ; URI (upper respiratory infection) J06.9 and Depression F32.[address] 41493- 3790 May, Low back pain M54.5 ; Anxiety about health F41.8 ; Generalized anxiety disorder F41.1 and Acute stress reaction F43.[address] 02973- 2702 May, [id number] [place] [address] 36788- 7010 Apr, Diabetes E11.9 ; Type 2 diabetes mellitus with unspecified complications E11.8 ; Essential hypertension I10 ; Peripheral neuropathy G62.9 ; Low back pain M54.5 ; Other chronic pain G89.29 ; GERD (gastroesophageal reflux disease) K21.9 ; Anxiety associated with depression F41.8 ; Muscle spasm of calf M62.831 ; Insomnia G47.00 and COPD (chronic obstructive pulmonary disease) J44.9 [address] [place] [address] 10949- 5601 May, [address] 05185- 1927 May, IMMUNIZATIONS No Known Immunizations SOCIAL HISTORY Never Assessed REASON FOR VISIT Re:RE:bs meter PLAN OF CARE VITAL SIGNS MEDICATIONS Unknown [...]
--- OUTSIDE RECORDS SUMMARY | 2018-02-19 16:54 | XMS REPORT ---
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 Name Role Phone KATIE JEFFRIES Unavailable PROBLEMS Type Condition ICD9-CM Code SYI38-LJ Code Onset Dates Condition Status SNOMED Code Problem Other chronic pain G89.29 Active 83924961 Problem Insomnia G47.00 Active 522033301 Problem Type 2 diabetes mellitus with unspecified complications E11.8 Active 87714207 Problem Constipation by delayed colonic transit K59.01 Active 07899253 Problem Chronic kidney disease (CKD) stage G3b/A1, moderately decreased glomerular filtration rate (GFR) between 30-44 mL/min/1.73 square meter and albuminuria creatinine ratio less than 30 mg/g N18.3 Active 299965291 Problem Mixed hyperlipidemia E78.2 Active 652310921 Problem Controlled substance agreement signed Z79.899 Active 465320055 Problem 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 Active 36293660 Problem Vitamin D deficiency E55.9 Active 11149911 Problem Peripheral neuropathy G62.9 Active 70016141 Problem Essential hypertension I10 Active 91889447 Problem Osteoarthritis of acromioclavicular joint M19.019 Active 025359970 Problem COPD (chronic obstructive pulmonary disease) J44.9 Active 66642473 Problem Anxiety associated with depression F41.8 Active 975365579 Problem GERD (gastroesophageal reflux disease) K21.9 Active 293495665 ALLERGIES No Information ENCOUNTERS Encounter Location Date Diagnosis [facility] [id number] [address] Jan, [facility] [address] [address] Jan, Type 2 diabetes mellitus with unspecified complications E11.8 [facility] [id number] [address]99 Jan, [facility] [address], [place] [address] 74[address] Jan, Other chronic pain G89.29 and Anxiety associated with depression F41.8 [facility] [id number] [address] Jan, [facility] [id number] [place] [address] 38921- 0723 Dec, [facility] [id number] [place] [address] 41478- 5166 Dec, Type 2 diabetes mellitus with unspecified [...] and 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 [facility] [id number] [place] [address] 66804- 8674 Dec, [facility] [id number] [place] [address] 85647- 0229 Dec, Type 2 diabetes mellitus with unspecified complications E11.8 [facility] [address], [place] [address] 2510 Dec, [facility] [id number] [place] [address] 00463- 1227 Dec, Type 2 diabetes mellitus with unspecified complications E11.8 [facility] [id number] [place] [address] 06841- 4505 Dec, Type 2 diabetes mellitus with unspecified complications E11.8 [facility] [id number] [address] 0315 Dec, [facility] [id number] [address] 5042 Dec, Type 2 diabetes mellitus with unspecified complications E11.8 [facility] [address], [place] [address] 76[address] Dec, [facility] [address], [place] [address]- 1795 Dec, [facility] [id number] [place] [address] 78373- 6387 Dec, [facility] [address], [place] [address] 6708 Dec, [facility] [id number] [place] [address] 33813- 3196 Dec, [facility] [id number], [place] [address] 7798 Dec, Other chronic pain G89.29 and Anxiety associated with depression F41.8 [facility] [address], [place] [address] 6608 Dec, Type 2 diabetes mellitus with unspecified complications E11.8 [facility] [address] [address] 1529 Nov, [facility] [address], [place] [address]- 5719 Nov, [facility] [address], [place] [address]- 9148 Nov, [facility] [address], [place] [address] 2750 Nov, [facility] [id number] [address] 2411 Nov, Type 2 diabetes mellitus with unspecified complications E11.8 [facility] [address], [place] [address]- 3089 Nov, [facility] [address], [place] [address]- 7023 Nov, Type 2 diabetes mellitus with unspecified complications E11.8 [facility] [address], [place] [address]- 8270 11 Nov, 2017 Other chronic pain G89.29 and Anxiety associated with depression F41.8 [facility] [address], [place] [address]- 1366 08 Nov, 2017 Chronic renal insufficiency N18.9 [facility] [id number] [address] 7305 07 Nov, 2017 Other chronic pain G89.29 [facility] [id number] [address] 2622 Nov, Type 2 diabetes mellitus with unspecified complications E11.8 [facility] [address], [place] [address]- 5983 October, [facility] [address], [place] [address]- 8380 October, [facility] [address], [place] [address]- 3483 October, Type 2 diabetes mellitus with unspecified complications E11.8 [facility] [address], [place] [address]- 3108 October, [facility] [address], [place] [address]- 3239 October, [facility] [address], [place] [address]- 5504 October, Type 2 diabetes mellitus with unspecified complications E11.8 [facility] [address], [place] [address]- 7523 October, [facility] [address], [place] [address]- 2034 October, [facility] [address], [place] [address]- 7455 October, Type 2 diabetes mellitus with unspecified complications E11.8 [facility] [id number] [place] [address] 23320- 4489 October, Type 2 diabetes mellitus with unspecified complications E11.8 ; Essential hypertension I10 ; Chronic renal insufficiency N18.9 ; BMI 40.0-44.9, adult Z68.41 ; Other chronic pain G89.29 ; Anxiety associated with depression F41.8 and Right medial knee pain M25.561 [facility] [address] 265[address]- 6066 October, GERD (gastroesophageal reflux disease) K21.9 and Anxiety associated with depression F41.8 [facility] [address] 34127- 3432 October, Anxiety associated with depression F41.8 [facility] [address] 33807- 9525 Sep, [facility] [address] 14556- 5708 Sep, GERD (gastroesophageal reflux disease) K21.9 and Anxiety associated with depression F41.8 [facility] [address] 03736- 2253 Aug, [facility] [id number] [place] [address] 44125- 6836 Aug, [facility] [id number] [place] [address] 88838 -2646 Aug, Acute recurrent maxillary sinusitis J01.01 [facility] [id number] [place] [address] 05928- 9780 Aug, [facility] [address] 26296- 5262 Aug, GERD (gastroesophageal reflux disease) K21.9 and Other chronic pain G89.29 [facility] [address] 81233- 2654 Aug, [facility] [address], [place] [address] Aug, [facility] [id number] [place] [address] 52130- 0454 Aug, Controlled substance agreement signed Z79.899 ; [...] armpit R59.0 [facility] [id number] [place] [address] 73841- 6056 Aug, Anxiety associated with depression F41.8 and GERD ( gastroesophageal reflux disease) K21.9 [facility] [id number] [place] [address] 22882- 9237 Jul, Controlled substance agreement signed Z79.899 [facility] [id number] [place] [address] 16227- 8435 Jun, Anxiety associated with depression F41.8 and GERD ( gastroesophageal reflux disease) K21.9 [facility] [id number] [place] [address] 05035- 1761 May, Anxiety associated with depression F41.8 and GERD ( gastroesophageal reflux disease) K21.9 [facility] [address] [place] [address] 67721- 8805 Apr, Mixed hyperlipidemia E78.2 [facility] [id number] [place] [address] 48234- 5811 Apr, Anxiety associated with depression F41.8 and GERD ( gastroesophageal reflux disease) K21.9 [facility] [id number] [place] [address] 55879- 2951 Apr, [facility] [address], [place] [address]- 9395 Apr, Type 2 diabetes mellitus with unspecified complications E11.8 [facility] [address], [place] [address]- 0382 Apr, [facility] [address] [place] [address] 20407- 1556 Apr, Type 2 diabetes mellitus with unspecified complications E11.8 [facility] [id number] [place] [address] 35426- 7241 Apr, [facility] [id number] [place] [address] 24805- 5132 Mar, GERD (gastroesophageal reflux disease) K21.9 and Anxiety associated with depression F41.8 [facility] [id number] [place] [address] 38696- 2943 Mar, 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 [facility] [id number] [place] [address] 12962- 3806 Mar, Essential hypertension I10 ; Anxiety associated with depression F41.8 ; COPD (chronic obstructive pulmonary disease) J44.9 ; Mixed hyperlipidemia E78.2 ; Vitamin D deficiency E55.9 ; GERD (gastroesophageal reflux disease) K21.9 ; Type 2 diabetes mellitus with unspecified complications E11.8 ; Other chronic pain G89.29 and Chronic renal insufficiency N18.9 [facility] [address] [place] [address] 04038- 9387 Mar, Chronic renal insufficiency N18.9 [facility] [id number] [place] [address] 88631- 7928 Feb, GERD (gastroesophageal reflux disease) K21.9 and Type 2 diabetes mellitus with unspecified complications E11.8 [facility] [address], [place] [address]- 8031 Feb, Anxiety associated with depression F41.8 and Tear of left supraspinatus tendon, subsequent encounter S46.812D [facility] [address], [place] [address]- 3514 Jan, Pre-operative examination for internal medicine Z01.818 [facility] [id number] [place] [address] 83082- 3080 Jan, Anxiety associated with depression F41.8 and Left anterior shoulder pain M25.512 [facility] [id number] [place] [address] 76325- 5886 Jan, [facility] [id number] [place] [address] 01842- 9812 Jan, [facility] [id number] [place] [address] 71543- 9615 Jan, Type 2 diabetes mellitus with unspecified complications E11.8 ; Essential hypertension I10 ; Other chronic pain G89.29 ; GERD ( gastroesophageal reflux disease) K21.9 ; Anxiety associated with depression F41.8 ; Insomnia G47.00 ; Hypertriglyceridemia E78.1 ; Left anterior shoulder pain M25.512 and Tobacco abuse Z72.0 [facility] [id number] [place] [address] 71610- 3932 Dec, Anxiety associated with depression F41.8 and Tear of left supraspinatus tendon, subsequent encounter S46.812D [facility] [address] [place] [address] 08969- 2755 Nov, [facility] [id number] [place] [address] 95473- 5733 Nov, Anxiety associated with depression F41.8 and Tear of left supraspinatus tendon, subsequent encounter S46.812D [facility] [id number] [place] [address] 76519- 5141 05 Nov, 2016 Abnormal lung sounds R09.89 and COPD (chronic obstructive pulmonary disease) with acute bronchitis J44.0 [facility] [id number] [place] [address] 81190- 5537 Nov, [facility] [id number] [place] [address] 52033- 0312 October, COPD (chronic obstructive pulmonary disease) with acute bronchitis J44.0 ; Abnormal lung sounds R09.89 and Medication refill Z76.0 [facility] [id number] [place] [address] 08672- 5808 October, Anxiety associated with depression F41.8 [facility] [address] 73092- 3694 Sep, Nausea and vomiting, unspecified intactability, vomiting of unspecified type R11.2 [facility] [address] 45028- 3942 Sep, COPD (chronic obstructive pulmonary disease) J44.9 ; Tobacco abuse Z72.0 ; Tear of left supraspinatus tendon, subsequent encounter S46.812D and Type 2 diabetes mellitus with unspecified complications E11.8 [facility] [id number] [place] [address] 91004- 5702 Sep, [facility] [address] 49073- 7221 Aug, Left anterior shoulder pain M25.512 [facility] [id number] [place] [address] 17880- 3213 Aug, Left anterior shoulder pain M25.512 and Low back pain M54.5 [facility] [id number] [place] [address] 35868- 3935 Aug, [facility] [id number] [place] [address] 35621- 8085 Aug, [facility] [address] 25554- 3963 Aug, [facility] [id number] [place] [address] 29572- 7604 Aug, [facility] [address] [place] [address]- 0262 Aug, Type 2 diabetes mellitus with unspecified complications E11.8 [facility] [address] 36135- 8192 Aug, Type 2 diabetes mellitus with unspecified [...] E55.9 and GERD (gastroesophageal reflux disease) K21.9 [facility] [address] 18679- 0635 Aug, [facility] [address] 11878- 4796 May, [facility] [address] 79472- 6958 Apr, [facility] [address] 17632- 5024 Apr, Type 2 diabetes mellitus with unspecified [...] S49.92XA and Anxiety associated with depression F41.8 [facility] [address] 31447- 3077 Apr, [facility] [address] 50864- 6008 Apr, [facility] [address] 13293- 4062 Apr, [facility] [id number], [place] [address]- 1496 Mar, [facility] [address], [place] [address]- 4447 Feb, [facility] [address], [place] [address]- 8083 Feb, [facility] [address], [place] [address]- 6078 Jan, [facility] [address], [place] [address]- 1269 Jan, [facility] [address], [place] [address]- 8172 Jan, Type 2 diabetes mellitus with unspecified complications E11.8 ; Essential hypertension I10 and Vitamin D deficiency E55.9 [facility] [address], [place] [address]- 2265 Dec, Type 2 diabetes mellitus with unspecified complications E11.8 ; Essential hypertension I10 ; Other chronic pain G89.29 ; Anxiety associated with depression F41.8 ; Bronchitis J40 ; Vitamin D deficiency E55.9 and COPD (chronic obstructive pulmonary disease) J44.9 [facility] [address], [place] [address]- 5501 Nov, [facility] [address], [place] [address]- 1930 October, [facility] [address], [place] [address]- 2988 October, [facility] [address], [place] [address]- 8949 October, [facility] [address], [place] [address]- 0906 October, Dysuria R30.0 ; Bronchitis J40 ; Anxiety associated with depression F41.8 and Type 2 diabetes mellitus with unspecified complications E11.8 [facility] [address], [place] [address]- 9234 October, Chronic renal insufficiency N18.9 ; Elevated white blood cell count D72.829 and Frequent UTI N39.0 [facility] [id number] [place] [address] 67689- 6525 October, Chronic renal insufficiency N18.9 ; Elevated white blood cell count D72.829 and Frequent UTI N39.0 [facility] [id number] [place] [address] 51298- 5677 October, [facility] [id number] [place] [address] 62556- 5102 Sep, Type 2 diabetes mellitus with unspecified complications E11.8 ; Essential hypertension I10 ; COPD (chronic obstructive pulmonary disease ) J44.9 and Hospital discharge follow-up Z09 [facility] [id number] [place] [address] 91600- 8027 Sep, [id number] [place] [address] 42642- 8463 Sep, Dyspnea R06.00 ; Other chronic pain G89.29 ; Dysuria R30.0 ; Diaphoresis R61 ; Jaundice R17 ; COPD (chronic obstructive pulmonary disease) J44.9 ; Type 2 diabetes mellitus with unspecified complications E11.8 ; Excessive daytime sleepiness G47.19 and Oliguria R34 [address] [place] [address] 33845- 4548 Sep, [address] [place] [address] 65407- 0399 Sep, Essential hypertension I10 ; Anxiety associated with depression F41.8 ; Mixed hyperlipidemia E78.2 ; Dyspnea R06.00 ; Shortness of breath R06.02 and Chest pain, unspecified R07.[address] [place] [address] 10568- 7292 Sep, Chest pain R07.9 ; Hyperlipemia E78.5 ; Type 2 diabetes mellitus with unspecified complications E11.8 ; Essential hypertension I10 ; Other chronic pain G89.29 ; Anxiety associated with depression F41.8 ; COPD ( chronic obstructive pulmonary disease) J44.9 ; Low vitamin D level E55.9 ; Tobacco abuse Z72.0 ; Hypertriglyceridemia E78.1 and Abnormal laboratory test R89.9 [facility] [id number] [place] [address] 63140- 0002 Aug, Pneumonia J18.9 ; Hypertriglyceridemia E78.1 ; COPD ( chronic obstructive pulmonary disease) J44.9 and Hyperlipidemia E78.5 [id number] [place] [address] 37903- 5198 Aug, Shortness of breath R06.02 ; Anxiety associated with depression F41.8 and Chest pain, unspecified R07.9 [id number] [place] [address] 15097- 3962 Jul, [address] 82725- 9795 Jun, Anxiety associated with depression F41.8 ; [...] unspecified type R11.2 and Tobacco abuse Z72.0 [facility] [id number] [place] [address] 73252- 2616 May, Hyperlipemia E78.5 [id number] [place] [address] 06372- 1008 May, [facility] [id number] [place] [address] 43579- 5603 May, Type 2 diabetes mellitus with unspecified complications E11.8 [address] [id number] [place] [address] 13549- 5179 May, [address] 85417- 1163 May, Anxiety associated with depression F41.8 ; Type 2 diabetes mellitus with unspecified complications E11.8 ; Essential hypertension I10 ; Peripheral neuropathy G62.9 ; Low back pain M54.5 ; Other chronic pain G89.29 ; GERD (gastroesophageal reflux disease) K21.9 ; Insomnia G47.00 ; COPD (chronic obstructive pulmonary disease) J44.9 ; URI (upper respiratory infection) J06.9 and Depression F32.[address] 38338- 6712 May, Low back pain M54.5 ; Anxiety about health F41.8 ; Generalized anxiety disorder F41.1 and Acute stress reaction F43.[address] 03970- 1652 May, [address] [id number] [place] [address] 76132- 3163 Apr, Diabetes E11.9 ; Type 2 diabetes mellitus with unspecified complications E11.8 ; Essential hypertension I10 ; Peripheral neuropathy G62.9 ; Low back pain M54.5 ; Other chronic pain G89.29 ; GERD (gastroesophageal reflux disease) K21.9 ; Anxiety associated with depression F41.8 ; Muscle spasm of calf M62.831 ; Insomnia G47.00 and COPD (chronic obstructive pulmonary disease) J44.[address] [place] [address] 88317- 0259 May, [address] 05766- 4785 May, IMMUNIZATIONS No Known Immunizations SOCIAL HISTORY [...]
--- OUTSIDE RECORDS SUMMARY | 2018-02-19 16:55 | XMS REPORT ---
Author Author KATIE JEFFRIES Organization [facility] Address [address] [place] [address] Care Team Providers Care Field Advisor Name Role Phone KATIE JEFFRIES Unavailable PROBLEMS Type Condition ICD9-CM Code VRS94-SI Code Onset Dates Condition Status SNOMED Code Problem Other chronic pain G89.29 Active 13195537 Problem Insomnia G47.00 Active 899376405 Problem Type 2 diabetes mellitus with unspecified complications E11.8 Active 48459320 Problem Constipation by delayed colonic transit K59.01 Active 34727705 Problem Chronic kidney disease (CKD) stage G3b/A1, moderately decreased glomerular filtration rate (GFR) between 30-44 mL/min/1.73 square meter and albuminuria creatinine ratio less than 30 mg/g N18.3 Active 431947056 Problem Mixed hyperlipidemia E78.2 Active 356076585 Problem Controlled substance agreement signed Z79.899 Active 497343353 Problem 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 Active 11832600 Problem Vitamin D deficiency E55.9 Active 35280203 Problem Peripheral neuropathy G62.9 Active 05398024 Problem Essential hypertension I10 Active 14974460 Problem Osteoarthritis of acromioclavicular joint M19.019 Active 973740979 Problem COPD (chronic obstructive pulmonary disease) J44.9 Active 84046139 Problem Anxiety associated with depression F41.8 Active 521454534 Problem GERD (gastroesophageal reflux disease) K21.9 Active 099219156 ALLERGIES No Information ENCOUNTERS Encounter Location Date Diagnosis [facility] [id number] [address] Jan, [facility] [address] [address] Jan, Type 2 diabetes mellitus with unspecified complications E11.8 [facility] [id number] [address] Jan, [facility] [address] [address] Jan, Other chronic pain G89.29 and Anxiety associated with depression F41.8 [facility] [address] [address] Jan, [facility] [id number] [place] [address] 06934- [address]003 Dec, [facility] [id number] [place] [address] 48915- 4723 Dec, Type 2 diabetes mellitus with unspecified [...] and 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 [facility] [id number] [place] [address] 50230- 9774 Dec, [facility] [facility] [id number] [place] [address] 60670- 8377 Dec, Type 2 diabetes mellitus with unspecified complications E11.8 [facility] [address] [address] Dec, [facility] [id number] [place] [address] 52184- 8222 Dec, Type 2 diabetes mellitus with unspecified complications E11.8 [facility] [id number] [place] [address] 31630- 9554 Dec, Type 2 diabetes mellitus with unspecified complications E11.8 [facility] [address] [address] 0369 Dec, [facility] [address] [address] 1693 Dec, Type 2 diabetes mellitus with unspecified complications E11.8 [facility] [address] [address] 26[address] Dec, [facility] [address] [address]- 1175 Dec, [facility] [id number] [place] [address] 65101- 1296 Dec, [facility] [address] [address] 8958 Dec, [facility] [id number] [place] [address] 05509- 5375 Dec, [facility] [address] [address] 9349 Dec, Other chronic pain G89.29 and Anxiety associated with depression F41.8 [facility] [address] [address] 1218 Dec, Type 2 diabetes mellitus with unspecified complications E11.8 [facility] [address] [address] 2800 Nov, [facility] [address] [address] 7581 Nov, [facility] [address] [address]- 1788 Nov, [facility] [address] [address]- 5828 Nov, [facility] [address] [address]- 0878 Nov, Type 2 diabetes mellitus with unspecified complications E11.8 [facility] [address] [address]- 4873 Nov, [facility] [address] [address]- 9495 Nov, Type 2 diabetes mellitus with unspecified complications E11.8 [facility] [address] [address]- 0789 11 Nov, 2017 Other chronic pain G89.29 and Anxiety associated with depression F41.8 [facility] [address] [address]- 64[address] 08 Nov, 2017 Chronic renal insufficiency N18.9 [facility] [address] [address]- 0057 07 Nov, 2017 Other chronic pain G89.29 [facility] [address] [address]- 5552 Nov, Type 2 diabetes mellitus with unspecified complications E11.8 [facility] [address] [address]- 9036 October, [facility] [address] [address]- 0250 October, [facility] [address] [address]- 8168 October, Type 2 diabetes mellitus with unspecified complications E11.8 [facility] [address] [address]- 3936 October, [facility] [address] [address]- 7087 October, [facility] [address] [address]- 9173 October, Type 2 diabetes mellitus with unspecified complications E11.8 [facility] [address] [address]- 2162 October, [facility] [address] [address]- 3797 October, [facility] [address] [address]- 4536 October, Type 2 diabetes mellitus with unspecified complications E11.8 [facility] [id number] [place] [address] 21163- 3780 October, Type 2 diabetes mellitus with unspecified complications E11.8 ; Essential hypertension I10 ; Chronic renal insufficiency N18.9 ; BMI 40.0-44.9, adult Z68.41 ; Other chronic pain G89.29 ; Anxiety associated with depression F41.8 and Right medial knee pain M25.561 [address] [address] [address]- 6072 October, GERD (gastroesophageal reflux disease) K21.9 and Anxiety associated with depression F41.8 [facility] [address] 30775- 9964 October, Anxiety associated with depression F41.8 [facility] [address] 16920- 6772 Sep, [place] [address] 81226- 9396 Sep, GERD (gastroesophageal reflux disease) K21.9 and Anxiety associated with depression F41.8 [facility] [address] 91818- 5008 Aug, [facility] [id number] [place] [address] 65691- 3657 Aug, [facility] [id number] [place] [address] Aug, Acute recurrent maxillary sinusitis J01.01 [facility] [id number] [place] [address] 76248- 6014 Aug, [facility] [address] 20658- 1636 Aug, GERD (gastroesophageal reflux disease) K21.9 and Other chronic pain G89.29 [place] [address] 96737- 6733 Aug, [facility] [address] [address] Aug, [facility] [id number] [place] [address] 05733- 8159 Aug, Controlled substance agreement signed Z79.899 ; [...] and Enlarged lymph nodes in armpit R59.0 [facility] [id number] [place] [address] 00678- 2544 Aug, Anxiety associated with depression F41.8 and GERD ( gastroesophageal reflux disease) K21.9 [facility] [id number] [place] [address] 76253- 1347 Jul, Controlled substance agreement signed Z79.899 [facility] [id number] [place] [address] 52937- 0377 Jun, Anxiety associated with depression F41.8 and GERD ( gastroesophageal reflux disease) K21.9 [facility] [id number] [place] [address] 69261- 1197 May, Anxiety associated with depression F41.8 and GERD ( gastroesophageal reflux disease) K21.9 [facility] [address] [place] [address] 89285- 2029 Apr, Mixed hyperlipidemia E78.2 [facility] [id number] [place] [address] 31277- 6497 Apr, Anxiety associated with depression F41.8 and GERD ( gastroesophageal reflux disease) K21.9 [facility] [id number] [place] [address] 98859- 8746 Apr, [facility] [address] [address]- 4365 Apr, Type 2 diabetes mellitus with unspecified complications E11.8 [facility] [address] [address]- 3883 Apr, [facility] [address] [place] [address] 91359- 7359 Apr, Type 2 diabetes mellitus with unspecified complications E11.8 [facility] [id number] [place] [address] 57786- 9602 Apr, [facility] [id number] [place] [address] 67932- 9300 Mar, GERD (gastroesophageal reflux disease) K21.9 and Anxiety associated with depression F41.8 [facility] [id number] [place] [address] 91206- 4158 Mar, 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 [facility] [id number] [place] [address] 10812- 2774 Mar, Essential hypertension I10 ; Anxiety associated with depression F41.8 ; COPD (chronic obstructive pulmonary disease) J44.9 ; Mixed hyperlipidemia E78.2 ; Vitamin D deficiency E55.9 ; GERD (gastroesophageal reflux disease) K21.9 ; Type 2 diabetes mellitus with unspecified complications E11.8 ; Other chronic pain G89.29 and Chronic renal insufficiency N18.9 [facility] [place] [address] [place] [address] 75930- 6098 Mar, Chronic renal insufficiency N18.9 [facility] [id number] [place] [address] 64488- 7588 Feb, GERD (gastroesophageal reflux disease) K21.9 and Type 2 diabetes mellitus with unspecified complications E11.8 [facility] [address] [address]- 7031 Feb, Anxiety associated with depression F41.8 and Tear of left supraspinatus tendon, subsequent encounter S46.812D [facility] [place] [address] [address]- 9852 Jan, Pre-operative examination for internal medicine Z01.818 [facility] [id number] [place] [address] 40711- 9687 Jan, Anxiety associated with depression F41.8 and Left anterior shoulder pain M25.512 [facility] [id number] [place] [address] 64222- 6567 Jan, [facility] [id number] [place] [address] 21003- 1473 Jan, [facility] [id number] [place] [address] 89518- 5916 Jan, Type 2 diabetes mellitus with unspecified complications E11.8 ; Essential hypertension I10 ; Other chronic pain G89.29 ; GERD ( gastroesophageal reflux disease) K21.9 ; Anxiety associated with depression F41.8 ; Insomnia G47.00 ; Hypertriglyceridemia E78.1 ; Left anterior shoulder pain M25.512 and Tobacco abuse Z72.0 [facility] [id number] [place] [address] 63489- 2751 Dec, Anxiety associated with depression F41.8 and Tear of left supraspinatus tendon, subsequent encounter S46.812D [facility] [address] [place] [address] 86988- 5469 Nov, [facility] [id number] [place] [address] 82498- 6766 Nov, Anxiety associated with depression F41.8 and Tear of left supraspinatus tendon, subsequent encounter S46.812D [facility] [id number] [place] [address] 85569- 9169 05 Nov, 2016 Abnormal lung sounds R09.89 and COPD (chronic obstructive pulmonary disease) with acute bronchitis J44.0 [facility] [id number] [place] [address] 20047- 6745 Nov, [facility] [id number] [place] [address] 84328- 8544 October, COPD (chronic obstructive pulmonary disease) with acute bronchitis J44.0 ; Abnormal lung sounds R09.89 and Medication refill Z76.0 [facility] [id number] [place] [address] 00804- 5071 October, Anxiety associated with depression F41.8 [facility] [facility] [address] 71801- 3185 Sep, Nausea and vomiting, unspecified intactability, vomiting of unspecified type R11.2 [address] [place] [address] 64782- 0676 Sep, COPD (chronic obstructive pulmonary disease) J44.9 ; Tobacco abuse Z72.0 ; Tear of left supraspinatus tendon, subsequent encounter S46.812D and Type 2 diabetes mellitus with unspecified complications E11.8 [facility] [id number] [place] [address] 64892- 5606 Sep, [facility] [address] 58742- 7125 Aug, Left anterior shoulder pain M25.512 [facility] [id number] [place] [address] 85757- 6029 Aug, Left anterior shoulder pain M25.512 and Low back pain M54.5 [facility] [id number] [place] [address] 06441- 7789 Aug, [facility] [id number] [place] [address] 26500- 4007 Aug, [address] [address] 19794- 8074 Aug, [facility] [id number] [place] [address] 95473- 3928 Aug, [facility] [address] [place] [address]- 6549 Aug, Type 2 diabetes mellitus with unspecified complications E11.8 [facility] [address] 19217- 4772 Aug, Type 2 diabetes mellitus with unspecified [...] E55.9 and GERD (gastroesophageal reflux disease) K21.9 [facility] [address] 36656- 1768 Aug, [place] [address] 89895- 7891 May, [facility] [address] 71235- 8706 Apr, [place] [address] 25484- 0329 Apr, Type 2 diabetes mellitus with unspecified [...] S49.92XA and Anxiety associated with depression F41.8 [address] [place] [address] 22597- 6116 Apr, [place] [address] 24882- 9423 Apr, [address] [address] 80647- 1754 Apr, [facility] [address] [address]- 8772 Mar, [facility] [address] [address]- 4660 Feb, [facility] [address] [address]- 9129 Feb, [facility] [address] [address]- 1592 Jan, [facility] [address] [address]- 7408 Jan, [facility] [address] [address]- 0349 Jan, Type 2 diabetes mellitus with unspecified complications E11.8 ; Essential hypertension I10 and Vitamin D deficiency E55.9 [facility] [address] [address]- 0524 Dec, Type 2 diabetes mellitus with unspecified complications E11.8 ; Essential hypertension I10 ; Other chronic pain G89.29 ; Anxiety associated with depression F41.8 ; Bronchitis J40 ; Vitamin D deficiency E55.9 and COPD (chronic obstructive pulmonary disease) J44.9 [facility] [address] [address]- 2845 Nov, [facility] [address] [address]- 2127 October, [facility] [address] [address]- 5322 October, [facility] [address] [address]- 9919 October, [facility] [address] [address]- 3294 October, Dysuria R30.0 ; Bronchitis J40 ; Anxiety associated with depression F41.8 and Type 2 diabetes mellitus with unspecified complications E11.8 [facility] [address] [address]- 2240 October, Chronic renal insufficiency N18.9 ; Elevated white blood cell count D72.829 and Frequent UTI N39.0 [facility] [id number] [place] [address] 96555- 6404 October, Chronic renal insufficiency N18.9 ; Elevated white blood cell count D72.829 and Frequent UTI N39.0 [facility] [id number] [place] [address] 89797- 7972 October, [facility] [id number] [place] [address] 65713- 1297 Sep, Type 2 diabetes mellitus with unspecified complications E11.8 ; Essential hypertension I10 ; COPD (chronic obstructive pulmonary disease ) J44.9 and Hospital discharge follow-up Z09 [facility] [facility] [id number] [place] [address] 33122- 6410 Sep, [id number] [place] [address] 54891- 9667 Sep, Dyspnea R06.00 ; Other chronic pain G89.29 ; Dysuria R30.0 ; Diaphoresis R61 ; Jaundice R17 ; COPD (chronic obstructive pulmonary disease) J44.9 ; Type 2 diabetes mellitus with unspecified complications E11.8 ; Excessive daytime sleepiness G47.19 and Oliguria R34 [address] [place] [address] 35045- 1250 Sep, [address] [place] [address] 09506- 9318 Sep, Essential hypertension I10 ; Anxiety associated with depression F41.8 ; Mixed hyperlipidemia E78.2 ; Dyspnea R06.00 ; Shortness of breath R06.02 and Chest pain, unspecified R07.9 [address] [place] [address] 91058- 2279 Sep, Chest pain R07.9 ; Hyperlipemia E78.5 ; Type 2 diabetes mellitus with unspecified complications E11.8 ; Essential hypertension I10 ; Other chronic pain G89.29 ; Anxiety associated with depression F41.8 ; COPD ( chronic obstructive pulmonary disease) J44.9 ; Low vitamin D level E55.9 ; Tobacco abuse Z72.0 ; Hypertriglyceridemia E78.1 and Abnormal laboratory test R89.9 [facility] [id number] [place] [address] 83539- 4884 Aug, Pneumonia J18.9 ; Hypertriglyceridemia E78.1 ; COPD ( chronic obstructive pulmonary disease) J44.9 and Hyperlipidemia E78.5 [id number] [place] [address] 28398- 0333 Aug, Shortness of breath R06.02 ; Anxiety associated with depression F41.8 and Chest pain, unspecified R07.9 [id number] [place] [address] 26561- 4413 Jul, [address] [address]28- 0770 Jun, Anxiety associated with depression F41.8 ; [...] unspecified type R11.2 and Tobacco abuse Z72.0 [facility] [id number] [place] [address] 89998- 8153 May, Hyperlipemia E78.5 [id number] [place] [address] 64716- 5915 May, [facility] [id number] [place] [address] 27866- 8244 May, Type 2 diabetes mellitus with unspecified complications E11.8 [id number] [place] [address] 66480- 3689 May, [address] 50725- 2534 May, Anxiety associated with depression F41.8 ; Type 2 diabetes mellitus with unspecified complications E11.8 ; Essential hypertension I10 ; Peripheral neuropathy G62.9 ; Low back pain M54.5 ; Other chronic pain G89.29 ; GERD (gastroesophageal reflux disease) K21.9 ; Insomnia G47.00 ; COPD (chronic obstructive pulmonary disease) J44.9 ; URI (upper respiratory infection) J06.9 and Depression F32.[address] 94905- 8659 May, Low back pain M54.5 ; Anxiety about health F41.8 ; Generalized anxiety disorder F41.1 and Acute stress reaction F43.[address] 09814- 8402 May, [id number] [place] [address] 29533- 0230 Apr, Diabetes E11.9 ; Type 2 diabetes mellitus with unspecified complications E11.8 ; Essential hypertension I10 ; Peripheral neuropathy G62.9 ; Low back pain M54.5 ; Other chronic pain G89.29 ; GERD (gastroesophageal reflux disease) K21.9 ; Anxiety associated with depression F41.8 ; Muscle spasm of calf M62.831 ; Insomnia G47.00 and COPD (chronic obstructive pulmonary disease) J44.9 [address] [place] [address] 88143- 8393 May, [address] 15342- 7167 May, IMMUNIZATIONS No Known Immunizations SOCIAL HISTORY [...]
--- OUTSIDE RECORDS SUMMARY | 2018-02-19 16:55 | XMS REPORT ---
Author Author KATIE JEFFRIES Organization [facility] Address [address] [place] [address] Care Team Providers Care On Site Nurse Name Role Phone KATIE JEFFRIES Unavailable PROBLEMS Type Condition ICD9-CM Code [id number] Code Onset Dates Condition Status SNOMED Code Problem Other chronic pain G89.29 Active 20355552 Problem Insomnia G47.00 Active 349660872 Problem Type 2 diabetes mellitus with unspecified complications E11.8 Active 23496546 Problem Constipation by delayed colonic transit K59.01 Active 34992407 Problem Chronic kidney disease (CKD) stage G3b/A1, moderately decreased glomerular filtration rate (GFR) between 30-44 mL/min/1.73 square meter and albuminuria creatinine ratio less than 30 mg/g N18.3 Active 244724323 Problem Mixed hyperlipidemia E78.2 Active 171549703 Problem Controlled substance agreement signed Z79.899 Active 405565106 Problem 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 Active 95123142 Problem Vitamin D deficiency E55.9 Active 87751823 Problem Peripheral neuropathy G62.9 Active 12205963 Problem Essential hypertension I10 Active 21814316 Problem Osteoarthritis of acromioclavicular joint M19.019 Active 917068029 Problem COPD (chronic obstructive pulmonary disease) J44.9 Active 87760137 Problem Anxiety associated with depression F41.8 Active 670631175 Problem GERD (gastroesophageal reflux disease) K21.9 Active 680049016 ALLERGIES No Information ENCOUNTERS Encounter Location Date Diagnosis [facility] [id number], [place] [address] Jan, [facility] [id number], [place] [address] Jan, Type 2 diabetes mellitus with unspecified complications E11.8 [facility] [id number], [place] [address] Jan, [facility] [id number], [place] [address] Jan, Other chronic pain G89.29 and Anxiety associated with depression F41.8 [facility] [id number] [address] Jan, [facility] [id number] [place] [address] 92524- 8990 Dec, [facility] [id number] [place] [address] 28826- 1180 Dec, Type 2 diabetes mellitus with unspecified [...] and 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 [facility] [id number] [place] [address] 27302- 4987 Dec, [facility] [id number] [place] [address] 47825- 9037 Dec, Type 2 diabetes mellitus with unspecified complications E11.8 [facility] [id number], [place] [address] 4[address] Dec, [facility] [id number] [place] [address] 22846- 9897 Dec, Type 2 diabetes mellitus with unspecified complications E11.8 [facility] [id number] [place] [address] 63980- 9567 Dec, Type 2 diabetes mellitus with unspecified complications E11.8 [facility] [id number] [address] 1357 Dec, [facility] [id number] [address] 2804 Dec, Type 2 diabetes mellitus with unspecified complications E11.8 [facility] [id number], [place] [address] 3842 Dec, [facility] [id number], [place] [address] 6324 Dec, [facility] [id number] [place] [address] 94440- 8015 Dec, [facility] [id number] [address] 7922 Dec, [facility] [id number] [place] [address] 38221- 1135 Dec, [facility] [id number] [address] 7175 Dec, Other chronic pain G89.29 and Anxiety associated with depression F41.8 [facility] [id number], [place] [address] 40[address] Dec, Type 2 diabetes mellitus with unspecified complications E11.8 [facility] [id number], [place] [address] 94[address] Nov, [facility] [id number], [place] [address] 6578 Nov, [facility] [id number], [place] [address] 0062 Nov, [facility] [id number] [address] 4227 Nov, [facility] [id number] [place] [address] 3224 Nov, Type 2 diabetes mellitus with unspecified complications E11.8 [facility] [id number], [place] [address] 9059 Nov, [facility] [id number], [place] [address] 5193 Nov, Type 2 diabetes mellitus with unspecified complications E11.8 [facility] [id number] [address] 6398 11 Nov, 2017 Other chronic pain G89.29 and Anxiety associated with depression F41.8 [facility] [id number], [place] [address] 0267 08 Nov, 2017 Chronic renal insufficiency N18.9 [facility] [id number] [address] 9532 07 Nov, 2017 Other chronic pain G89.29 [facility] [id number] [address] 1107 Nov, Type 2 diabetes mellitus with unspecified complications E11.8 [facility] [id number], [place] [address] 7214 October, [facility] [id number], [place] [address] 8707 October, [facility] [id number], [place] [address] 0437 October, Type 2 diabetes mellitus with unspecified complications E11.8 [facility] [id number], [place] [address] 8574 October, [facility] [id number], [place] [address] 6107 October, [facility] [id number], [place] [address] 3822 October, Type 2 diabetes mellitus with unspecified complications E11.8 [facility] [id number], [place] [address] 7131 October, [facility] [id number], [place] [address]- 9085 October, [facility] [id number], [place] [address]- 5282 October, Type 2 diabetes mellitus with unspecified complications E11.8 [facility] [id number] [place] [address] 20210- 5256 October, Type 2 diabetes mellitus with unspecified complications E11.8 ; Essential hypertension I10 ; Chronic renal insufficiency N18.9 ; BMI 40.0-44.9, adult Z68.41 ; Other chronic pain G89.29 ; Anxiety associated with depression F41.8 and Right medial knee pain M25.561 [place] [address] [address] October, GERD (gastroesophageal reflux disease) K21.9 and Anxiety associated with depression F41.8 [facility] [address] 25075- 8722 October, Anxiety associated with depression F41.8 [facility] [address] [address]- 4468 Sep, [facility] [address] 633[address]- 8332 Sep, GERD (gastroesophageal reflux disease) K21.9 and Anxiety associated with depression F41.8 [facility] [address] 75456- 9906 Aug, [facility] [id number] [place] [address] 23267- 0512 Aug, [facility] [id number] [place] [address] 95644 -3321 Aug, Acute recurrent maxillary sinusitis J01.01 [facility] [id number] [place] [address] 54404- 9865 Aug, [facility] [address] 49791- 2217 Aug, GERD (gastroesophageal reflux disease) K21.9 and Other chronic pain G89.29 [facility] [address] 85608- 6279 Aug, [facility] [id number], [place] [address] Aug, [facility] [id number] [place] [address] 16522- 0783 Aug, Controlled substance agreement signed Z79.899 ; [...] and Enlarged lymph nodes in armpit R59.0 [facility] [id number] [place] [address] 42045- 8352 Aug, Anxiety associated with depression F41.8 and GERD ( gastroesophageal reflux disease) K21.9 [facility] [id number] [place] [address] 88905- 9047 Jul, Controlled substance agreement signed Z79.899 [facility] [id number] [place] [address] 09692- 4029 Jun, Anxiety associated with depression F41.8 and GERD ( gastroesophageal reflux disease) K21.9 [facility] [id number] [place] [address] 59454- 7787 May, Anxiety associated with depression F41.8 and GERD ( gastroesophageal reflux disease) K21.9 [facility] [id number] [place] [address] 40346- 4341 Apr, Mixed hyperlipidemia E78.2 [facility] [id number] [place] [address] 99173- 4602 Apr, Anxiety associated with depression F41.8 and GERD ( gastroesophageal reflux disease) K21.9 [facility] [id number] [place] [address] 35240- 5440 Apr, [facility] [id number], [place] [address]- 2099 Apr, Type 2 diabetes mellitus with unspecified complications E11.8 [facility] [id number], [place] [address]- 3701 Apr, [facility] [place] [id number] [place] [address] 60302- 3527 Apr, Type 2 diabetes mellitus with unspecified complications E11.8 [facility] [id number] [place] [address] 74375- 0301 Apr, [facility] [id number] [place] [address] 55066- 1242 Mar, GERD (gastroesophageal reflux disease) K21.9 and Anxiety associated with depression F41.8 [facility] [id number] [place] [address] 97460- 4500 Mar, 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 [facility] [id number] [place] [address] 99736- 5387 Mar, Essential hypertension I10 ; Anxiety associated with depression F41.8 ; COPD (chronic obstructive pulmonary disease) J44.9 ; Mixed hyperlipidemia E78.2 ; Vitamin D deficiency E55.9 ; GERD (gastroesophageal reflux disease) K21.9 ; Type 2 diabetes mellitus with unspecified complications E11.8 ; Other chronic pain G89.29 and Chronic renal insufficiency N18.9 [facility] [place] [id number] [place] [address] 20795- 3978 Mar, Chronic renal insufficiency N18.9 [facility] [id number] [place] [address] 33623- 8422 Feb, GERD (gastroesophageal reflux disease) K21.9 and Type 2 diabetes mellitus with unspecified complications E11.8 [facility] [id number], [place] [address]- 7869 Feb, Anxiety associated with depression F41.8 and Tear of left supraspinatus tendon, subsequent encounter S46.812D [facility] [id number], [place] [address]- 7545 Jan, Pre-operative examination for internal medicine Z01.818 [facility] [id number] [place] [address] 37501- 5551 Jan, Anxiety associated with depression F41.8 and Left anterior shoulder pain M25.512 [facility] [id number] [place] [address] 06257- 9232 Jan, [facility] [id number] [place] [address] 00378- 4897 Jan, [facility] [id number] [place] [address] 60643- 6158 Jan, Type 2 diabetes mellitus with unspecified complications E11.8 ; Essential hypertension I10 ; Other chronic pain G89.29 ; GERD ( gastroesophageal reflux disease) K21.9 ; Anxiety associated with depression F41.8 ; Insomnia G47.00 ; Hypertriglyceridemia E78.1 ; Left anterior shoulder pain M25.512 and Tobacco abuse Z72.0 [facility] [id number] [place] [address] 57658- 8210 Dec, Anxiety associated with depression F41.8 and Tear of left supraspinatus tendon, subsequent encounter S46.812D [facility] [id number] [place] [address] 17669- 0735 Nov, [facility] [id number] [place] [address] 43059- 5533 Nov, Anxiety associated with depression F41.8 and Tear of left supraspinatus tendon, subsequent encounter S46.812D [facility] [id number] [place] [address] 29746- 1731 05 Nov, 2016 Abnormal lung sounds R09.89 and COPD (chronic obstructive pulmonary disease) with acute bronchitis J44.0 [facility] [id number] [place] [address] 01443- 3267 Nov, [facility] [id number] [place] [address] 12519- 4158 October, COPD (chronic obstructive pulmonary disease) with acute bronchitis J44.0 ; Abnormal lung sounds R09.89 and Medication refill Z76.0 [facility] [id number] [place] [address] 56853- 7162 October, Anxiety associated with depression F41.8 [facility] [address] 79821- 9691 Sep, Nausea and vomiting, unspecified intactability, vomiting of unspecified type R11.2 [facility] [address] 93989- 1688 Sep, COPD (chronic obstructive pulmonary disease) J44.9 ; Tobacco abuse Z72.0 ; Tear of left supraspinatus tendon, subsequent encounter S46.812D and Type 2 diabetes mellitus with unspecified complications E11.8 [facility] [id number] [place] [address] 91035- 2585 Sep, [facility] [address] 92495- 6320 Aug, Left anterior shoulder pain M25.512 [facility] [id number] [place] [address] 70820- 2690 Aug, Left anterior shoulder pain M25.512 and Low back pain M54.5 [facility] [id number] [place] [address] 94643- 1016 Aug, [facility] [id number] [place] [address] 93262- 6659 Aug, [facility] [address] 71448- 4298 Aug, [facility] [id number] [place] [address] 44351- 7487 Aug, [facility] [place] [place] [address]- 5098 Aug, Type 2 diabetes mellitus with unspecified complications E11.8 [facility] [address] 18081- 9892 Aug, Type 2 diabetes mellitus with unspecified [...] E55.9 and GERD (gastroesophageal reflux disease) K21.9 [facility] [address] 80259- 2000 Aug, [facility] [address] 41184- 2855 May, [facility] [address] 27519- 9322 Apr, [facility] [address] 00732- 0234 Apr, Type 2 diabetes mellitus with unspecified [...] S49.92XA and Anxiety associated with depression F41.8 [facility] [address] 51163- 7753 Apr, [facility] [address] 79030- 7579 Apr, [facility] [address] 81926- 6684 Apr, [facility] [id number], [place] [address]- 3140 Mar, [facility] [id number], [place] [address]- 4614 Feb, [facility] [id number], [place] [address]- 4973 Feb, [facility] [id number], [place] [address]- 6877 Jan, [facility] [id number], [place] [address]- 5846 Jan, [facility] [id number], [place] [address]- 1062 Jan, Type 2 diabetes mellitus with unspecified complications E11.8 ; Essential hypertension I10 and Vitamin D deficiency E55.9 [facility] [address], [place] [address]- 5133 Dec, Type 2 diabetes mellitus with unspecified complications E11.8 ; Essential hypertension I10 ; Other chronic pain G89.29 ; Anxiety associated with depression F41.8 ; Bronchitis J40 ; Vitamin D deficiency E55.9 and COPD (chronic obstructive pulmonary disease) J44.9 [facility] [address], [place] [address]- 7109 Nov, [facility] [id number], [place] [address]- 9974 October, [facility] [address], [place] [address]- 5378 October, [facility] [address], [place] [address]- 9481 October, [facility] [id number], [place] [address]- 1931 October, Dysuria R30.0 ; Bronchitis J40 ; Anxiety associated with depression F41.8 and Type 2 diabetes mellitus with unspecified complications E11.8 [facility] [address], [place] [address]- 2816 October, Chronic renal insufficiency N18.9 ; Elevated white blood cell count D72.829 and Frequent UTI N39.0 [facility] [id number] [place] [address] 15341- 7950 October, Chronic renal insufficiency N18.9 ; Elevated white blood cell count D72.829 and Frequent UTI N39.0 [facility] [id number] [place] [address] 15108- 7740 October, [facility] [id number] [place] [address] 18928- 3239 Sep, Type 2 diabetes mellitus with unspecified complications E11.8 ; Essential hypertension I10 ; COPD (chronic obstructive pulmonary disease ) J44.9 and Hospital discharge follow-up Z09 [facility] [id number] [place] [address] 63025- 1021 Sep, [id number] [place] [address] 56598- 0962 Sep, Dyspnea R06.00 ; Other chronic pain G89.29 ; Dysuria R30.0 ; Diaphoresis R61 ; Jaundice R17 ; COPD (chronic obstructive pulmonary disease) J44.9 ; Type 2 diabetes mellitus with unspecified complications E11.8 ; Excessive daytime sleepiness G47.19 and Oliguria R34 [address] [place] [address] 08046- 4668 Sep, [id number] [place] [address] 35323- 6471 Sep, Essential hypertension I10 ; Anxiety associated with depression F41.8 ; Mixed hyperlipidemia E78.2 ; Dyspnea R06.00 ; Shortness of breath R06.02 and Chest pain, unspecified R07.[address] [place] [address] 28545- 5332 Sep, Chest pain R07.9 ; Hyperlipemia E78.5 ; Type 2 diabetes mellitus with unspecified complications E11.8 ; Essential hypertension I10 ; Other chronic pain G89.29 ; Anxiety associated with depression F41.8 ; COPD ( chronic obstructive pulmonary disease) J44.9 ; Low vitamin D level E55.9 ; Tobacco abuse Z72.0 ; Hypertriglyceridemia E78.1 and Abnormal laboratory test R89.9 [facility] [id number] [place] [address] 58672- 6716 Aug, Pneumonia J18.9 ; Hypertriglyceridemia E78.1 ; COPD ( chronic obstructive pulmonary disease) J44.9 and Hyperlipidemia E78.5 [id number] [place] [address] 78921- 4101 Aug, Shortness of breath R06.02 ; Anxiety associated with depression F41.8 and Chest pain, unspecified R07.9 [id number] [place] [address] 66291- 8230 Jul, [address] 35106- 4960 Jun, Anxiety associated with depression F41.8 ; [...] unspecified type R11.2 and Tobacco abuse Z72.0 [facility] [id number] [place] [address] 35749- 9571 May, Hyperlipemia E78.5 [id number] [place] [address] 27137- 2199 May, [facility] [id number] [place] [address] 13197- 0776 May, Type 2 diabetes mellitus with unspecified complications E11.8 [id number] [place] [address] 49694- 7592 May, [address] 19000- 6893 May, Anxiety associated with depression F41.8 ; Type 2 diabetes mellitus with unspecified complications E11.8 ; Essential hypertension I10 ; Peripheral neuropathy G62.9 ; Low back pain M54.5 ; Other chronic pain G89.29 ; GERD (gastroesophageal reflux disease) K21.9 ; Insomnia G47.00 ; COPD (chronic obstructive pulmonary disease) J44.9 ; URI (upper respiratory infection) J06.9 and Depression F32.[address] 96092- 9091 May, Low back pain M54.5 ; Anxiety about health F41.8 ; Generalized anxiety disorder F41.1 and Acute stress reaction F43.[address] 32108- 1474 May, [id number] [place] [address] 90687- 3247 Apr, Diabetes E11.9 ; Type 2 diabetes mellitus with unspecified complications E11.8 ; Essential hypertension I10 ; Peripheral neuropathy G62.9 ; Low back pain M54.5 ; Other chronic pain G89.29 ; GERD (gastroesophageal reflux disease) K21.9 ; Anxiety associated with depression F41.8 ; Muscle spasm of calf M62.831 ; Insomnia G47.00 and COPD (chronic obstructive pulmonary disease) J44.9 [id number] [place] [address] 77326- 3913 May, [address] 03015- 5088 May, IMMUNIZATIONS No Known Immunizations SOCIAL HISTORY Never Assessed REASON FOR VISIT changes PLAN OF CARE VITAL SIGNS MEDICATIONS Medication Instructions Dosage Frequency Start Date End Date Duration Status Victoza 18 mg/3 ml 0.6mg daily x one week then increase to 1.2mg daily Dec, Feb, 30 days Active RESULTS No Results PROCEDURES No [...]
--- OUTSIDE RECORDS SUMMARY | 2018-02-19 16:55 | XMS REPORT ---
Author Author KATIE JEFFRIES Organization [facility] Address [address] [place] [address] Care Team Providers Care Wireline Operator Name Role Phone KATIE JEFFRIES Unavailable PROBLEMS Type Condition ICD9-CM Code JVO08-AN Code Onset Dates Condition Status SNOMED Code Problem Other chronic pain G89.29 Active 11290140 Problem Insomnia G47.00 Active 398270686 Problem Type 2 diabetes mellitus with unspecified complications E11.8 Active 43247439 Problem Constipation by delayed colonic transit K59.01 Active 24364192 Problem Chronic kidney disease (CKD) stage G3b/A1, moderately decreased glomerular filtration rate (GFR) between 30-44 mL/min/1.73 square meter and albuminuria creatinine ratio less than 30 mg/g N18.3 Active 617779508 Problem Mixed hyperlipidemia E78.2 Active 497255156 Problem Controlled substance agreement signed Z79.899 Active 407572610 Problem 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 Active 20222130 Problem Vitamin D deficiency E55.9 Active 71071874 Problem Peripheral neuropathy G62.9 Active 31730868 Problem Essential hypertension I10 Active 19180151 Problem Osteoarthritis of acromioclavicular joint M19.019 Active 021711465 Problem COPD (chronic obstructive pulmonary disease) J44.9 Active 46845799 Problem Anxiety associated with depression F41.8 Active 693958660 Problem GERD (gastroesophageal reflux disease) K21.9 Active [id number] ALLERGIES No Information ENCOUNTERS Encounter Location Date Diagnosis [facility] [id number], [place] [address] Jan, [facility] [address] [place] [address] Jan, Type 2 diabetes mellitus with unspecified complications E11.8 [facility] [id number], [place] [address] Jan, [facility] [address], [place] [address] Jan, Other chronic pain G89.29 and Anxiety associated with depression F41.8 [facility] [id number] [address] Jan, [facility] [id number] [place] [address] 23742- 9638 Dec, [facility] [id number] [place] [address] 30969- 7168 Dec, Type 2 diabetes mellitus with unspecified [...] and 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 [facility] [id number] [place] [address] 60125- 4914 Dec, [facility] [id number] [place] [address] 47512- 7436 Dec, Type 2 diabetes mellitus with unspecified complications E11.8 [facility] [address], [place] [address] 8227 Dec, [facility] [id number] [place] [address] 82887- 5076 Dec, Type 2 diabetes mellitus with unspecified complications E11.8 [facility] [id number] [place] [address] 01579- 3783 Dec, Type 2 diabetes mellitus with unspecified complications E11.8 [facility] [id number] [address] 5779 Dec, [facility] [id number] [address] 0408 Dec, Type 2 diabetes mellitus with unspecified complications E11.8 [facility] [address], [place] [address] 0697 Dec, [facility] [address], [place] [address] 9291 Dec, [facility] [id number] [place] [address] 54131- 8767 Dec, [facility] [address], [place] [address] 5463 Dec, [facility] [id number] [place] [address] 99367- 6716 Dec, [facility] [id number], [place] [address] 7133 Dec, Other chronic pain G89.29 and Anxiety associated with depression F41.8 [facility] [address], [place] [address] 4043 Dec, Type 2 diabetes mellitus with unspecified complications E11.8 [facility] [address], [place] [address] 9502 Nov, [facility] [address], [place] [address] 1174 Nov, [facility] [address], [place] [address] 4715 Nov, [facility] [address], [place] [address] 5408 Nov, [facility] [id number] [address] 3622 Nov, Type 2 diabetes mellitus with unspecified complications E11.8 [facility] [address], [place] [address]- 8406 Nov, [facility] [address], [place] [address] 9020 Nov, Type 2 diabetes mellitus with unspecified complications E11.8 [facility] [address], [place] [address] 5160 11 Nov, 2017 Other chronic pain G89.29 and Anxiety associated with depression F41.8 [facility] [address], [place] [address] 8[address] 08 Nov, 2017 Chronic renal insufficiency N18.9 [facility] [address], [place] [address] 9094 07 Nov, 2017 Other chronic pain G89.29 [facility] [id number], [place] [address] 9608 Nov, Type 2 diabetes mellitus with unspecified complications E11.8 [facility] [address], [place] [address] 3447 October, [facility] [address], [place] [address] 6951 October, [facility] [address], [place] [address] 6530 October, Type 2 diabetes mellitus with unspecified complications E11.8 [facility] [address], [place] [address] 1913 October, [facility] [address], [place] [address] 0012 October, [facility] [address], [place] [address]- 5912 October, Type 2 diabetes mellitus with unspecified complications E11.8 [facility] [address], [place] [address] 1571 October, [facility] [address], [place] [address]- 4802 October, [facility] [address], [place] [address] 8603 October, Type 2 diabetes mellitus with unspecified complications E11.8 [facility] [id number] [place] [address] 24449- 4370 October, Type 2 diabetes mellitus with unspecified complications E11.8 ; Essential hypertension I10 ; Chronic renal insufficiency N18.9 ; BMI 40.0-44.9, adult Z68.41 ; Other chronic pain G89.29 ; Anxiety associated with depression F41.8 and Right medial knee pain M25.561 [place] [address] [address]- 6652 October, GERD (gastroesophageal reflux disease) K21.9 and Anxiety associated with depression F41.8 [facility] [address] [address]- 1902 October, Anxiety associated with depression F41.8 [facility] [address] 75836- 0573 Sep, [facility] [address] 85183- 0515 Sep, GERD (gastroesophageal reflux disease) K21.9 and Anxiety associated with depression F41.8 [address] [address] 88607- 6841 Aug, [facility] [id number] [place] [address] 81816- 5305 Aug, [facility] [id number] [place] [address] 13718 -8861 Aug, Acute recurrent maxillary sinusitis J01.01 [facility] [id number] [place] [address] 54295- 5234 Aug, [place] [address] 32639- 5622 Aug, GERD (gastroesophageal reflux disease) K21.9 and Other chronic pain G89.29 [place] [place] [address] 91850- 5153 Aug, [facility] [address], [place] [address] Aug, [facility] [id number] [place] [address] 15648- 8282 Aug, Controlled substance agreement signed Z79.899 ; [...] and Enlarged lymph nodes in armpit R59.0 [facility] [id number] [place] [address] 75465- 7971 Aug, Anxiety associated with depression F41.8 and GERD ( gastroesophageal reflux disease) K21.9 [facility] [id number] [place] [address] 64597- 6701 Jul, Controlled substance agreement signed Z79.899 [facility] [id number] [place] [address] 06095- 5460 Jun, Anxiety associated with depression F41.8 and GERD ( gastroesophageal reflux disease) K21.9 [facility] [id number] [place] [address] 54446- 9165 May, Anxiety associated with depression F41.8 and GERD ( gastroesophageal reflux disease) K21.9 [facility] [address] [place] [address] 19477- 8109 Apr, Mixed hyperlipidemia E78.2 [facility] [id number] [place] [address] 09292- 0093 Apr, Anxiety associated with depression F41.8 and GERD ( gastroesophageal reflux disease) K21.9 [facility] [id number] [place] [address] 30683- 6412 Apr, [place] [place] [address], [place] [address]- 8091 Apr, Type 2 diabetes mellitus with unspecified complications E11.8 [facility] [address], [place] [address]- 0346 Apr, [facility] [place] [address] [place] [address] 45979- 5607 Apr, Type 2 diabetes mellitus with unspecified complications E11.8 [facility] [id number] [place] [address] 06339- 4898 Apr, [facility] [id number] [place] [address] 87786- 1432 Mar, GERD (gastroesophageal reflux disease) K21.9 and Anxiety associated with depression F41.8 [facility] [id number] [place] [address] 48115- 3192 Mar, 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 [facility] [id number] [place] [address] 64089- 5370 Mar, Essential hypertension I10 ; Anxiety associated with depression F41.8 ; COPD (chronic obstructive pulmonary disease) J44.9 ; Mixed hyperlipidemia E78.2 ; Vitamin D deficiency E55.9 ; GERD (gastroesophageal reflux disease) K21.9 ; Type 2 diabetes mellitus with unspecified complications E11.8 ; Other chronic pain G89.29 and Chronic renal insufficiency N18.9 [place] [place] [address] [place] [address] 91649- 8300 Mar, Chronic renal insufficiency N18.9 [facility] [id number] [place] [address] 31904- 9104 Feb, GERD (gastroesophageal reflux disease) K21.9 and Type 2 diabetes mellitus with unspecified complications E11.8 [facility] [address], [place] [address]- 4025 Feb, Anxiety associated with depression F41.8 and Tear of left supraspinatus tendon, subsequent encounter S46.812D [place] [place] [address], [place] [address]- 0212 Jan, Pre-operative examination for internal medicine Z01.818 [facility] [id number] [place] [address] 45771- 9147 Jan, Anxiety associated with depression F41.8 and Left anterior shoulder pain M25.512 [facility] [id number] [place] [address] 90266- 0701 Jan, [facility] [id number] [place] [address] 14099- 1240 Jan, [facility] [id number] [place] [address] 17675- 1793 Jan, Type 2 diabetes mellitus with unspecified complications E11.8 ; Essential hypertension I10 ; Other chronic pain G89.29 ; GERD ( gastroesophageal reflux disease) K21.9 ; Anxiety associated with depression F41.8 ; Insomnia G47.00 ; Hypertriglyceridemia E78.1 ; Left anterior shoulder pain M25.512 and Tobacco abuse Z72.0 [facility] [id number] [place] [address] 78014- 4483 Dec, Anxiety associated with depression F41.8 and Tear of left supraspinatus tendon, subsequent encounter S46.812D [facility] [place] [address] [place] [address] 99838- 3155 Nov, [facility] [id number] [place] [address] 17569- 4930 Nov, Anxiety associated with depression F41.8 and Tear of left supraspinatus tendon, subsequent encounter S46.812D [facility] [id number] [place] [address] 95010- 7534 05 Nov, 2016 Abnormal lung sounds R09.89 and COPD (chronic obstructive pulmonary disease) with acute bronchitis J44.0 [facility] [id number] [place] [address] 16852- 0847 Nov, [facility] [id number] [place] [address] 05886- 4980 October, COPD (chronic obstructive pulmonary disease) with acute bronchitis J44.0 ; Abnormal lung sounds R09.89 and Medication refill Z76.0 [facility] [id number] [place] [address] 93033- 5980 October, Anxiety associated with depression F41.8 [place] [place] [address] 02440- 1387 Sep, Nausea and vomiting, unspecified intactability, vomiting of unspecified type R11.2 [facility] [address] 26203- 2144 Sep, COPD (chronic obstructive pulmonary disease) J44.9 ; Tobacco abuse Z72.0 ; Tear of left supraspinatus tendon, subsequent encounter S46.812D and Type 2 diabetes mellitus with unspecified complications E11.8 [facility] [id number] [place] [address] 26063- 7695 Sep, [facility] [address] 38348- 9806 Aug, Left anterior shoulder pain M25.512 [facility] [id number] [place] [address] 58245- 4506 Aug, Left anterior shoulder pain M25.512 and Low back pain M54.5 [facility] [id number] [place] [address] 97490- 0291 Aug, [facility] [id number] [place] [address] 01416- 9295 Aug, [place] [address] 80614- 4551 Aug, [facility] [id number] [place] [address] 60971- 8467 Aug, [facility] [place] [address] [place] [address]- 1648 Aug, Type 2 diabetes mellitus with unspecified complications E11.8 [facility] [address] 38982- 0016 Aug, Type 2 diabetes mellitus with unspecified [...] E55.9 and GERD (gastroesophageal reflux disease) K21.9 [place] [address] 64185- 0489 Aug, [place] [address] 42847- 0358 May, [place] [address] 91461- 2319 Apr, [place] [place] [address] 21727- 1872 Apr, Type 2 diabetes mellitus with unspecified [...] S49.92XA and Anxiety associated with depression F41.8 [address] [address] 54103- 5985 Apr, [place] [address] 70832- 0418 Apr, [place] [address] 41030- 6679 Apr, [facility] [address], [place] [address]- 3559 Mar, [facility] [address], [place] [address]- 9865 Feb, [facility] [address], [place] [address]- 9578 Feb, [facility] [address], [place] [address]- 3663 Jan, [facility] [address], [place] [address]- 7304 Jan, [facility] [address], [place] [address]- 6199 Jan, Type 2 diabetes mellitus with unspecified complications E11.8 ; Essential hypertension I10 and Vitamin D deficiency E55.9 [facility] [address], [place] [address]- 7312 Dec, Type 2 diabetes mellitus with unspecified complications E11.8 ; Essential hypertension I10 ; Other chronic pain G89.29 ; Anxiety associated with depression F41.8 ; Bronchitis J40 ; Vitamin D deficiency E55.9 and COPD (chronic obstructive pulmonary disease) J44.9 [facility] [address], [place] [address]- 8290 Nov, [facility] [address], [place] [address]- 6638 October, [facility] [address], [place] [address]- 4640 October, [facility] [address], [place] [address]- 3444 October, [facility] [address], [place] [address]- 2353 October, Dysuria R30.0 ; Bronchitis J40 ; Anxiety associated with depression F41.8 and Type 2 diabetes mellitus with unspecified complications E11.8 [facility] [address], [place] [address]- 2694 October, Chronic renal insufficiency N18.9 ; Elevated white blood cell count D72.829 and Frequent UTI N39.0 [facility] [id number] [place] [address] 99337- 3930 October, Chronic renal insufficiency N18.9 ; Elevated white blood cell count D72.829 and Frequent UTI N39.0 [facility] [id number] [place] [address] 27344- 5720 October, [facility] [id number] [place] [address] 10702- 7917 Sep, Type 2 diabetes mellitus with unspecified complications E11.8 ; Essential hypertension I10 ; COPD (chronic obstructive pulmonary disease ) J44.9 and Hospital discharge follow-up Z09 [facility] [place] [address] [place] [address] 26454- 0964 Sep, [id number] [place] [address] 58482- 4311 Sep, Dyspnea R06.00 ; Other chronic pain G89.29 ; Dysuria R30.0 ; Diaphoresis R61 ; Jaundice R17 ; COPD (chronic obstructive pulmonary disease) J44.9 ; Type 2 diabetes mellitus with unspecified complications E11.8 ; Excessive daytime sleepiness G47.19 and Oliguria R34 [address] [place] [address] 96899- 8187 Sep, [address] [place] [address] 90048- 1512 Sep, Essential hypertension I10 ; Anxiety associated with depression F41.8 ; Mixed hyperlipidemia E78.2 ; Dyspnea R06.00 ; Shortness of breath R06.02 and Chest pain, unspecified R07.9 [address] [place] [address] 03492- 1471 Sep, Chest pain R07.9 ; Hyperlipemia E78.5 ; Type 2 diabetes mellitus with unspecified complications E11.8 ; Essential hypertension I10 ; Other chronic pain G89.29 ; Anxiety associated with depression F41.8 ; COPD ( chronic obstructive pulmonary disease) J44.9 ; Low vitamin D level E55.9 ; Tobacco abuse Z72.0 ; Hypertriglyceridemia E78.1 and Abnormal laboratory test R89.9 [facility] [id number] [place] [address] 67140- 3269 Aug, Pneumonia J18.9 ; Hypertriglyceridemia E78.1 ; COPD ( chronic obstructive pulmonary disease) J44.9 and Hyperlipidemia E78.5 [id number] [place] [address] 87849- 0428 Aug, Shortness of breath R06.02 ; Anxiety associated with depression F41.8 and Chest pain, unspecified R07.9 [id number] [place] [address] 33072- 7597 Jul, [address] 63713- 3349 Jun, Anxiety associated with depression F41.8 ; [...] unspecified type R11.2 and Tobacco abuse Z72.0 [facility] [place] [id number] [place] [address] 81587- 5727 May, Hyperlipemia E78.5 [id number] [place] [address] 40076- 8700 May, [facility] [id number] [place] [address] 82118- 9774 May, Type 2 diabetes mellitus with unspecified complications E11.8 [id number] [place] [address] 49757- 2864 May, [address] 87048- 5473 May, Anxiety associated with depression F41.8 ; Type 2 diabetes mellitus with unspecified complications E11.8 ; Essential hypertension I10 ; Peripheral neuropathy G62.9 ; Low back pain M54.5 ; Other chronic pain G89.29 ; GERD (gastroesophageal reflux disease) K21.9 ; Insomnia G47.00 ; COPD (chronic obstructive pulmonary disease) J44.9 ; URI (upper respiratory infection) J06.9 and Depression F32.[address] 23160- 0678 May, Low back pain M54.5 ; Anxiety about health F41.8 ; Generalized anxiety disorder F41.1 and Acute stress reaction F43.[address] 02583- 0038 May, [id number] [place] [address] 41771- 2418 Apr, Diabetes E11.9 ; Type 2 diabetes mellitus with unspecified complications E11.8 ; Essential hypertension I10 ; Peripheral neuropathy G62.9 ; Low back pain M54.5 ; Other chronic pain G89.29 ; GERD (gastroesophageal reflux disease) K21.9 ; Anxiety associated with depression F41.8 ; Muscle spasm of calf M62.831 ; Insomnia G47.00 and COPD (chronic obstructive pulmonary disease) J44.9 [address] [place] [address] 78435- 2983 May, [address] 01731- 1255 May, IMMUNIZATIONS No Known Immunizations SOCIAL HISTORY Never Assessed REASON FOR VISIT bs meter PLAN OF CARE VITAL SIGNS MEDICATIONS Medication Instructions Dosage Frequency Start Date End Date Duration Status AutoRef.come Sensor System - as directed Dec, Active RESULTS No [...]
--- OUTSIDE RECORDS SUMMARY | 2018-02-19 16:56 | XMS REPORT ---
Author Author KATIE JEFFRIES Organization [facility], [place] Address [address] [place] [address] Care Team Providers Care District Sales Manager Name Role Phone MERVIN KATIE Unavailable PROBLEMS Type Condition ICD9-CM Code DVV30-IX Code Onset Dates Condition Status SNOMED Code Problem Other chronic pain G89.29 Active 42227114 Problem Insomnia G47.00 Active 302176152 Problem Type 2 diabetes mellitus with unspecified complications E11.8 Active 18181878 Problem Constipation by delayed colonic transit K59.01 Active 94663151 Problem Chronic kidney disease (CKD) stage G3b/A1, moderately decreased glomerular filtration rate (GFR) between 30-44 mL/min/1.73 square meter and albuminuria creatinine ratio less than 30 mg/g N18.3 Active 881279467 Problem Mixed hyperlipidemia E78.2 Active 317698001 Problem Controlled substance agreement signed Z79.899 Active 381607707 Problem 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 Active 60337538 Problem Vitamin D deficiency E55.9 Active 01635983 Problem Peripheral neuropathy G62.9 Active 47387664 Problem Essential hypertension I10 Active 60910689 Problem Osteoarthritis of acromioclavicular joint M19.019 Active 112943895 Problem COPD (chronic obstructive pulmonary disease) J44.9 Active 22259347 Problem Anxiety associated with depression F41.8 Active 030517185 Problem GERD (gastroesophageal reflux disease) K21.9 Active 449976791 ALLERGIES No Information ENCOUNTERS Encounter Location Date Diagnosis [facility], [place] [id number] [address] Jan, [facility], [place] [address] [address] Jan, Other chronic pain G89.29 and Anxiety associated with depression F41.8 [facility], [place] [id number] [place] [address] 56285- 4101 Jan, [facility], [place] [id number] [place] [address] 17692- 7420 Dec, [facility], [place] [id number] [place] [address] 13926- 3433 Dec, Type 2 diabetes mellitus with unspecified [...] and 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 [place] [id number] [place] [address] 73859- 3042 Dec, [place] [id number] [place] [address] 80240- 4059 Dec, Type 2 diabetes mellitus with unspecified complications E11.8 [facility], [place] [id number] [place] [address] 73957- 3221 Dec, [facility], [place] [id number] [place] [address] 27835- 3847 Dec, Type 2 diabetes mellitus with unspecified complications E11.8 [facility], [place] [id number] [place] [address] 77947- 0807 Dec, Type 2 diabetes mellitus with unspecified complications E11.8 [facility], [place] [id number] [place] [address] 31427- 1252 Dec, [facility], [place] [id number] [place] [address] 59976- 4212 Dec, Type 2 diabetes mellitus with unspecified complications E11.8 [facility], [place] [id number] [place] [address] 07753- 4803 Dec, [facility], [place] [id number] [address] 1572 Dec, [facility], [place] [address] [facility] [id number] [address] 1810 Dec, [facility], [place] [id number] [address] 0696 Dec, [facility], [place] [address] [address] Dec, [facility], [place] [id number] [address] 0816 Dec, Other chronic pain G89.29 and Anxiety associated with depression F41.8 [facility], [place] [id number] [address] 3943 Dec, Type 2 diabetes mellitus with unspecified complications E11.8 [facility], [place] [address] [address] 2960 Nov, [facility], [place] [address] [address] 3927 Nov, [facility], [place] [address] [address] 0363 Nov, [facility], [place] [id number] [address] 9757 Nov, [facility], [place] [id number] [address] 7759 Nov, Type 2 diabetes mellitus with unspecified complications E11.8 [facility], [place] [address] [facility] [id number] [address] 8723 Nov, [facility], [place] [id number] [address]- 4731 Nov, Type 2 diabetes mellitus with unspecified complications E11.8 [facility], [place] [id number] [address] 8590 Nov, Other chronic pain G89.29 and Anxiety associated with depression F41.8 [facility], [place] [address] [facility] [id number] [place] [address] 2546 08 Nov, 2017 Chronic renal insufficiency N18.9 [facility], [place] [id number] [place] [address] 2546 Nov, Other chronic pain G89.29 [facility], [place] [address] [address] 2546 Nov, Type 2 diabetes mellitus with unspecified complications E11.8 [facility], [place] [address] [facility] [id number] [place] [address] 8846 October, [facility], [place] [address] [address]- 0686 October, [facility], [place] [address] [address]- 6639 October, Type 2 diabetes mellitus with unspecified complications E11.8 [facility], [place] [address] [address] 0218 October, [facility], [place] [address] [address]- 6577 October, [facility], [place] [address] [address] 8106 October, Type 2 diabetes mellitus with unspecified complications E11.8 [facility], [place] [address] [address]- 0486 October, [facility] [place] [id number] [address]- 2546 October, [facility] [place] [id number] [address]- 4138 October, Type 2 diabetes mellitus with unspecified complications E11.8 [facility], [place] [id number] [address]- 2540 October, Type 2 diabetes mellitus with unspecified complications E11.8 ; Essential hypertension I10 ; Chronic renal insufficiency N18.9 ; BMI 40.0-44.9, adult Z68.41 ; Other chronic pain G89.29 ; Anxiety associated with depression F41.8 and Right medial knee pain M25.561 [place] [address] 72313- 7274 October, GERD (gastroesophageal reflux disease) K21.9 and Anxiety associated with depression F41.8 [place] [address] 68538- 9028 October, Anxiety associated with depression F41.8 [place] [address] 28053- 1498 Sep, [place] [address] 06117- 5181 Sep, GERD (gastroesophageal reflux disease) K21.9 and Anxiety associated with depression F41.8 [address] [address] 29217- 2599 Aug, [place] [place] [address] 95829- 3536 Aug, [facility] [address] [address] -[address]409 Aug, Acute recurrent maxillary sinusitis J01.01 [address] [place] [address] 78547- 1636 Aug, [place] [address] 36735- 1555 Aug, GERD (gastroesophageal reflux disease) K21.9 and Other chronic pain G89.29 [address] [place] [address] 40997- 5848 Aug, [facility] [address] 65334 -8635 Aug, [address] [address] 90895- 7308 Aug, Controlled substance agreement signed Z79.899 ; [...] and Enlarged lymph nodes in armpit R59.0 [address] [place] [address] 63095- 2591 Aug, Anxiety associated with depression F41.8 and GERD ( gastroesophageal reflux disease) K21.9 [place] [address] 39954- 8245 Jul, Controlled substance agreement signed Z79.899 [address] [place] [address] 59254- 7740 Jun, Anxiety associated with depression F41.8 and GERD ( gastroesophageal reflux disease) K21.9 [address] [place] [address] 09733- 5697 May, Anxiety associated with depression F41.8 and GERD ( gastroesophageal reflux disease) K21.9 [place] [id number] [place] [address] 12641- 3945 Apr, Mixed hyperlipidemia E78.2 [place] [id number] [place] [address] 06467- 7146 Apr, Anxiety associated with depression F41.8 and GERD ( gastroesophageal reflux disease) K21.9 [place] [id number] [place] [address] 31366- 2944 Apr, [address] [address] 87711- 4760 Apr, Type 2 diabetes mellitus with unspecified complications E11.8 [place] [address] 67434- 1700 Apr, [place] [id number] [place] [address] 22335- 5566 Apr, Type 2 diabetes mellitus with unspecified complications E11.8 [place] [id number] [place] [address] 89906- 1772 Apr, [place] [id number] [place] [address] 27658- 3103 Mar, GERD (gastroesophageal reflux disease) K21.9 and Anxiety associated with depression F41.8 [place] [id number] [place] [address] 02370- 7565 Mar, 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 [place] [id number] [place] [address] 54578- 0963 Mar, Essential hypertension I10 ; Anxiety associated with depression F41.8 ; COPD (chronic obstructive pulmonary disease) J44.9 ; Mixed hyperlipidemia E78.2 ; Vitamin D deficiency E55.9 ; GERD (gastroesophageal reflux disease) K21.9 ; Type 2 diabetes mellitus with unspecified complications E11.8 ; Other chronic pain G89.29 and Chronic renal insufficiency N18.9 [place] [id number] [place] [address] 91634- 0363 Mar, Chronic renal insufficiency N18.9 [place] [id number] [place] [address] 83779- 6851 Feb, GERD (gastroesophageal reflux disease) K21.9 and Type 2 diabetes mellitus with unspecified complications E11.8 [place] [id number] [place] [address] 06391- 1408 Feb, Anxiety associated with depression F41.8 and Tear of left supraspinatus tendon, subsequent encounter S46.812D [place] [id number] [place] [address] 70664- 4003 Jan, Pre-operative examination for internal medicine Z01.818 [address] [address] 69436- 2773 Jan, Anxiety associated with depression F41.8 and Left anterior shoulder pain M25.512 [place] [id number] [place] [address] 60966- 2691 Jan, [place] [id number] [place] [address] 84501- 2214 Jan, [place] [id number] [place] [address] 74121- 5389 Jan, Type 2 diabetes mellitus with unspecified complications E11.8 ; Essential hypertension I10 ; Other chronic pain G89.29 ; GERD ( gastroesophageal reflux disease) K21.9 ; Anxiety associated with depression F41.8 ; Insomnia G47.00 ; Hypertriglyceridemia E78.1 ; Left anterior shoulder pain M25.512 and Tobacco abuse Z72.0 [id number] [place] [address] 02523- 1036 Dec, Anxiety associated with depression F41.8 and Tear of left supraspinatus tendon, subsequent encounter S46.812D [place] [place] [id number] [place] [address] 07085- 7852 Nov, [id number] [place] [address] 72615- 8382 Nov, Anxiety associated with depression F41.8 and Tear of left supraspinatus tendon, subsequent encounter S46.812D [id number] [place] [address] 17533- 9960 Nov, Abnormal lung sounds R09.89 and COPD (chronic obstructive pulmonary disease) with acute bronchitis J44.0 [id number] [place] [address] 55391- 9231 Nov, [id number] [place] [address] 45368- 1564 October, COPD (chronic obstructive pulmonary disease) with acute bronchitis J44.0 ; Abnormal lung sounds R09.89 and Medication refill Z76.[id number] [place] [address] 56420- 5061 October, Anxiety associated with depression F41.8 [place] [id number] [place] [address] 96331- 6173 Sep, Nausea and vomiting, unspecified intactability, vomiting of unspecified type R11.2 [place] [place] [id number] [place] [address] 33558- 3898 Sep, COPD (chronic obstructive pulmonary disease) J44.9 ; Tobacco abuse Z72.0 ; Tear of left supraspinatus tendon, subsequent encounter S46.812D and Type 2 diabetes mellitus with unspecified complications E11.8 [place] [id number] [place] [address] 16768- 3364 Sep, [place] [id number] [place] [address] 62272- 3329 Aug, Left anterior shoulder pain M25.512 [place] [id number] [place] [address] 71958- 2456 Aug, Left anterior shoulder pain M25.512 and Low back pain M54.5 [place] [id number] [place] [address] 35028- 8348 Aug, [place] [id number] [place] [address] 06273- 7754 Aug, [place] [id number] [place] [address] 27905- 2125 Aug, [place] [id number] [place] [address] 70164- 2392 Aug, [place] [id number] [place] [address] 77231- 3097 Aug, Type 2 diabetes mellitus with unspecified complications E11.8 [place] [id number] [place] [address] 56779- 1727 Aug, Type 2 diabetes mellitus with unspecified [...] E55.9 and GERD (gastroesophageal reflux disease) K21.9 [place] [id number] [place] [address] 63590- 8322 Aug, [place] [id number] [place] [address] 91960- 1989 May, [place] [id number] [place] [address] 20046- 3705 Apr, [place] [id number] [place] [address] 50854- 2913 Apr, Type 2 diabetes mellitus with unspecified [...] S49.92XA and Anxiety associated with depression F41.8 [address] [id number] [place] [address] 81518- 7965 Apr, [place] [id number] [place] [address] 42396- 1707 Apr, [place] [id number] [place] [address] 74003- 8911 Apr, [place] [id number] [place] [address] 44991- 7058 Mar, [address] [address] [address]- 7733 Feb, [address] [place] [address] [address]- 8382 Feb, [place] [id number] [place] [address] 70013- 0203 Jan, [place] [id number] [place] [address] 02795- 2425 Jan, [place] [id number] [place] [address] 05484- 1561 Jan, Type 2 diabetes mellitus with unspecified complications E11.8 ; Essential hypertension I10 and Vitamin D deficiency E55.9 [place] [id number] [place] [address] 66741- 6320 Dec, Type 2 diabetes mellitus with unspecified complications E11.8 ; Essential hypertension I10 ; Other chronic pain G89.29 ; Anxiety associated with depression F41.8 ; Bronchitis J40 ; Vitamin D deficiency E55.9 and COPD (chronic obstructive pulmonary disease) J44.9 [place] [id number] [place] [address] 63451- 8480 Nov, [place] [id number] [place] [address] 98017- 0414 October, [place] [id number] [place] [address] 36303- 6349 October, [place] [id number] [place] [address] 87315- 5478 October, [place] [id number] [place] [address] 80446- 2640 October, Dysuria R30.0 ; Bronchitis J40 ; Anxiety associated with depression F41.8 and Type 2 diabetes mellitus with unspecified complications E11.8 [place] [id number] [place] [address] 68526- 7499 October, Chronic renal insufficiency N18.9 ; Elevated white blood cell count D72.829 and Frequent UTI N39.0 [place] [id number] [place] [address] 88578- 6006 October, Chronic renal insufficiency N18.9 ; Elevated white blood cell count D72.829 and Frequent UTI N39.0 [address] [id number] [place] [address] 10653- 9077 October, [place] [id number] [place] [address] 87066- 6230 Sep, Type 2 diabetes mellitus with unspecified complications E11.8 ; Essential hypertension I10 ; COPD (chronic obstructive pulmonary disease ) J44.9 and Hospital discharge follow-up Z09 [place] [id number] [place] [address] 39739- 7281 Sep, [place] [id number] [place] [address] 47938- 2363 Sep, Dyspnea R06.00 ; Other chronic pain G89.29 ; Dysuria R30.0 ; Diaphoresis R61 ; Jaundice R17 ; COPD (chronic obstructive pulmonary disease) J44.9 ; Type 2 diabetes mellitus with unspecified complications E11.8 ; Excessive daytime sleepiness G47.19 and Oliguria R34 [id number] [place] [address] 33185- 6410 Sep, [place] [id number] [place] [address] 65785- 7682 Sep, Essential hypertension I10 ; Anxiety associated with depression F41.8 ; Mixed hyperlipidemia E78.2 ; Dyspnea R06.00 ; Shortness of breath R06.02 and Chest pain, unspecified R07.9 [place] [id number] [place] [address] 11265- 8364 Sep, Chest pain R07.9 ; Hyperlipemia E78.5 ; Type 2 diabetes mellitus with unspecified complications E11.8 ; Essential hypertension I10 ; Other chronic pain G89.29 ; Anxiety associated with depression F41.8 ; COPD ( chronic obstructive pulmonary disease) J44.9 ; Low vitamin D level E55.9 ; Tobacco abuse Z72.0 ; Hypertriglyceridemia E78.1 and Abnormal laboratory test R89.9 [place] [id number] [place] [address] 19359- 6838 Aug, Pneumonia J18.9 ; Hypertriglyceridemia E78.1 ; COPD ( chronic obstructive pulmonary disease) J44.9 and Hyperlipidemia E78.5 [place] [id number] [place] [address] 94166- 5775 Aug, Shortness of breath R06.02 ; Anxiety associated with depression F41.8 and Chest pain, unspecified R07.9 [address] [id number] [place] [address] 74362- 0368 Jul, [place] [id number] [place] [address] 94787- 4403 Jun, Anxiety associated with depression F41.8 ; [...] unspecified type R11.2 and Tobacco abuse Z72.0 [address] [id number] [place] [address] 75763- 0826 May, Hyperlipemia E78.5 [place] [id number] [place] [address] 28725- 4994 May, [place] [id number] [place] [address] 95776- 4816 May, Type 2 diabetes mellitus with unspecified complications E11.8 [address] [id number] [place] [address] 91382- 0940 May, [place] [id number] [place] [address] 76502- 5003 May, Anxiety associated with depression F41.8 ; Type 2 diabetes mellitus with unspecified complications E11.8 ; Essential hypertension I10 ; Peripheral neuropathy G62.9 ; Low back pain M54.5 ; Other chronic pain G89.29 ; GERD (gastroesophageal reflux disease) K21.9 ; Insomnia G47.00 ; COPD (chronic obstructive pulmonary disease) J44.9 ; URI (upper respiratory infection) J06.9 and Depression F32.9 [place] [id number] [place] [address] 69738- 7228 May, Low back pain M54.5 ; Anxiety about health F41.8 ; Generalized anxiety disorder F41.1 and Acute stress reaction F43.0 [place] [address] 28906- 2031 May, [address] 20517- 0995 Apr, Diabetes E11.9 ; Type 2 diabetes mellitus with unspecified complications E11.8 ; Essential hypertension I10 ; Peripheral neuropathy G62.9 ; Low back pain M54.5 ; Other chronic pain G89.29 ; GERD (gastroesophageal reflux disease) K21.9 ; Anxiety associated with depression F41.8 ; Muscle spasm of calf M62.831 ; Insomnia G47.00 and COPD (chronic obstructive pulmonary disease) J44.9 [place] [id number] [place] [address] 67026- 8482 May, [place] [id number] [place] [address] 50220- 2395 May, IMMUNIZATIONS No Known Immunizations SOCIAL HISTORY Never Assessed REASON FOR VISIT Blood Sugars/controlled refill PLAN OF CARE VITAL SIGNS MEDICATIONS Medication Instructions Dosage Frequency Start Date End Date Duration Status Lancets - test blood sugar 12h Nov, 25 days Active Test strips Test Strips test blood sugar h Nov, 25 days Active Glucometer test blood sugar h Nov, lifetime Active Pen Braxton 30G X 5 MM as directed Nov, 30 days Active Hydrocodone-Acetaminophen 5-325 MG Orally twice a day 1 tablet as needed 12h Nov, 28 days Active RESULTS No Results PROCEDURES [...]
--- OUTSIDE RECORDS SUMMARY | 2018-02-19 16:56 | XMS REPORT ---
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 Name Role Phone KATIE JEFFRIES Unavailable PROBLEMS Type Condition ICD9-CM Code ZOI22-XQ Code Onset Dates Condition Status SNOMED Code Problem Other chronic pain G89.29 Active 50130540 Problem Insomnia G47.00 Active 965055051 Problem Type 2 diabetes mellitus with unspecified complications E11.8 Active 56513361 Problem Constipation by delayed colonic transit K59.01 Active 12441426 Problem Chronic kidney disease (CKD) stage G3b/A1, moderately decreased glomerular filtration rate (GFR) between 30-44 mL/min/1.73 square meter and albuminuria creatinine ratio less than 30 mg/g N18.3 Active 155800012 Problem Mixed hyperlipidemia E78.2 Active 298689443 Problem Controlled substance agreement signed Z79.899 Active 821255338 Problem 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 Active 53549490 Problem Vitamin D deficiency E55.9 Active 34806259 Problem Peripheral neuropathy G62.9 Active 14168712 Problem Essential hypertension I10 Active 51170897 Problem Osteoarthritis of acromioclavicular joint M19.019 Active 104049456 Problem COPD (chronic obstructive pulmonary disease) J44.9 Active 23609992 Problem Anxiety associated with depression F41.8 Active 060742128 Problem GERD (gastroesophageal reflux disease) K21.9 Active 736415551 ALLERGIES No Information ENCOUNTERS Encounter Location Date Diagnosis [facility] [id number], [place] [address] Jan, [facility] [address] [address] Jan, Type 2 diabetes mellitus with unspecified complications E11.8 [facility] [id number], [place] [address] Jan, [facility] [address] [address] Jan, Other chronic pain G89.29 and Anxiety associated with depression F41.8 [facility] [id number] [address] Jan, [facility] [id number] [place] [address] 54998- 3476 Dec, [facility] [id number] [place] [address] 57536- 7677 Dec, Type 2 diabetes mellitus with unspecified [...] and 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 [facility] [id number] [place] [address] 74810- 0145 Dec, [facility] [id number] [place] [address] 96617- 6689 Dec, Type 2 diabetes mellitus with unspecified complications E11.8 [facility] [address] [address] Dec, [facility] [id number] [place] [address] 28639- 5436 Dec, Type 2 diabetes mellitus with unspecified complications E11.8 [facility] [id number] [place] [address] 74171- 3512 Dec, Type 2 diabetes mellitus with unspecified complications E11.8 [facility] [id number] [address] Dec, [facility] [id number] [address] 63[address] Dec, Type 2 diabetes mellitus with unspecified complications E11.8 [facility] [address] [address] Dec, [facility] [address] [address] 8[address] Dec, [facility] [id number] [place] [address] 55211- 5471 Dec, [facility] [address] [address] 69[address] Dec, [facility] [id number] [place] [address] 60680- 5703 Dec, [facility] [id number], [place] [address] 6477 Dec, Other chronic pain G89.29 and Anxiety associated with depression F41.8 [facility] [address], [place] [address] 5[address] Dec, Type 2 diabetes mellitus with unspecified complications E11.8 [facility] [address], [place] [address] 9969 Nov, [facility] [address], [place] [address] 7925 Nov, [facility] [address], [place] [address] 0[address] Nov, [facility] [address] [address] 2264 Nov, [facility] [id number] [address] 9835 Nov, Type 2 diabetes mellitus with unspecified complications E11.8 [facility] [address] [address] 1787 Nov, [facility] [address], [place] [address] 6[address] Nov, Type 2 diabetes mellitus with unspecified complications E11.8 [facility] [address], [place] [address]- 7697 11 Nov, 2017 Other chronic pain G89.29 and Anxiety associated with depression F41.8 [facility] [address], [place] [address] 89[address] 08 Nov, 2017 Chronic renal insufficiency N18.9 [facility] [id number] [address] 6687 07 Nov, 2017 Other chronic pain G89.29 [facility] [id number] [address] 0121 Nov, Type 2 diabetes mellitus with unspecified complications E11.8 [facility] [address] [address] October, [facility] [address], [place] [address] 2[address] October, [facility] [address] [address] 3915 October, Type 2 diabetes mellitus with unspecified complications E11.8 [facility] [address], [place] [address] 0408 October, [facility] [address], [place] [address]- 7788 October, [facility] [address], [place] [address] 5149 October, Type 2 diabetes mellitus with unspecified complications E11.8 [facility] [address], [place] [address] 6403 October, [facility] [address], [place] [address]- 2689 October, [facility] [address], [place] [address]- 9342 October, Type 2 diabetes mellitus with unspecified complications E11.8 [facility] [id number] [place] [address] 83606- 8580 October, Type 2 diabetes mellitus with unspecified complications E11.8 ; Essential hypertension I10 ; Chronic renal insufficiency N18.9 ; BMI 40.0-44.9, adult Z68.41 ; Other chronic pain G89.29 ; Anxiety associated with depression F41.8 and Right medial knee pain M25.561 [facility] [place] [address] [address]- [address] October, GERD (gastroesophageal reflux disease) K21.9 and Anxiety associated with depression F41.8 [facility] [address] [address]- 6325 October, Anxiety associated with depression F41.8 [facility] [address] 17292- 5575 Sep, [place] [place] [address] 6[address]- 7968 Sep, GERD (gastroesophageal reflux disease) K21.9 and Anxiety associated with depression F41.8 [facility] [address] 137[address]- 9104 Aug, [facility] [id number] [place] [address] 20722- 2833 Aug, [facility] [id number] [place] [address]37 -[address] Aug, Acute recurrent maxillary sinusitis J01.01 [facility] [id number] [place] [address] 60824- 6479 Aug, [facility] [place] [address] 74192- 3886 Aug, GERD (gastroesophageal reflux disease) K21.9 and Other chronic pain G89.29 [facility] [place] [address] 97811- 2049 Aug, [facility] [address], [place] [address] Aug, [facility] [id number] [place] [address] 39199- 6735 Aug, Controlled substance agreement signed Z79.899 ; [...] and Enlarged lymph nodes in armpit R59.0 [facility] [id number] [place] [address] 88394- 5172 Aug, Anxiety associated with depression F41.8 and GERD ( gastroesophageal reflux disease) K21.9 [facility] [id number] [place] [address] 69572- 5337 Jul, Controlled substance agreement signed Z79.899 [facility] [id number] [place] [address] 85406- 2110 Jun, Anxiety associated with depression F41.8 and GERD ( gastroesophageal reflux disease) K21.9 [facility] [id number] [place] [address] 01084- 3081 May, Anxiety associated with depression F41.8 and GERD ( gastroesophageal reflux disease) K21.9 [facility] [id number] [place] [address] 71372- 5873 Apr, Mixed hyperlipidemia E78.2 [facility] [id number] [place] [address] 83874- 8473 Apr, Anxiety associated with depression F41.8 and GERD ( gastroesophageal reflux disease) K21.9 [facility] [id number] [place] [address] 02993- 1936 Apr, [facility] [address], [place] [address]- 6608 Apr, Type 2 diabetes mellitus with unspecified complications E11.8 [facility] [address], [place] [address]- 1134 Apr, [facility] [place] [id number] [place] [address] 82575- 3513 Apr, Type 2 diabetes mellitus with unspecified complications E11.8 [facility] [id number] [place] [address] 76359- 8621 Apr, [facility] [id number] [place] [address] 89094- 7371 Mar, GERD (gastroesophageal reflux disease) K21.9 and Anxiety associated with depression F41.8 [facility] [id number] [place] [address] 84751- 3010 Mar, 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 [facility] [id number] [place] [address] 59547- 5619 Mar, Essential hypertension I10 ; Anxiety associated with depression F41.8 ; COPD (chronic obstructive pulmonary disease) J44.9 ; Mixed hyperlipidemia E78.2 ; Vitamin D deficiency E55.9 ; GERD (gastroesophageal reflux disease) K21.9 ; Type 2 diabetes mellitus with unspecified complications E11.8 ; Other chronic pain G89.29 and Chronic renal insufficiency N18.9 [facility] [place] [id number] [place] [address] 74768- 2442 Mar, Chronic renal insufficiency N18.9 [facility] [id number] [place] [address] 63278- 4513 Feb, GERD (gastroesophageal reflux disease) K21.9 and Type 2 diabetes mellitus with unspecified complications E11.8 [facility] [address], [place] [address]- 8441 Feb, Anxiety associated with depression F41.8 and Tear of left supraspinatus tendon, subsequent encounter S46.812D [facility] [address], [place] [address]- 7080 Jan, Pre-operative examination for internal medicine Z01.818 [facility] [id number] [place] [address] 76628- 9822 Jan, Anxiety associated with depression F41.8 and Left anterior shoulder pain M25.512 [facility] [id number] [place] [address] 81467- 3279 Jan, [facility] [id number] [place] [address] 07665- 9056 Jan, [facility] [id number] [place] [address] 73749- 0175 Jan, Type 2 diabetes mellitus with unspecified complications E11.8 ; Essential hypertension I10 ; Other chronic pain G89.29 ; GERD ( gastroesophageal reflux disease) K21.9 ; Anxiety associated with depression F41.8 ; Insomnia G47.00 ; Hypertriglyceridemia E78.1 ; Left anterior shoulder pain M25.512 and Tobacco abuse Z72.0 [facility] [id number] [place] [address] 33167- 5153 Dec, Anxiety associated with depression F41.8 and Tear of left supraspinatus tendon, subsequent encounter S46.812D [place] [id number] [place] [address] 25225- 9605 Nov, [facility] [id number] [place] [address] 58651- 0712 Nov, Anxiety associated with depression F41.8 and Tear of left supraspinatus tendon, subsequent encounter S46.812D [facility] [id number] [place] [address] 90109- 8188 05 Nov, 2016 Abnormal lung sounds R09.89 and COPD (chronic obstructive pulmonary disease) with acute bronchitis J44.0 [facility] [id number] [place] [address] 54679- 2399 Nov, [facility] [id number] [place] [address] 15682- 4207 October, COPD (chronic obstructive pulmonary disease) with acute bronchitis J44.0 ; Abnormal lung sounds R09.89 and Medication refill Z76.0 [facility] [id number] [place] [address] 25155- 9688 October, Anxiety associated with depression F41.8 [facility] [address] 56834- 8519 Sep, Nausea and vomiting, unspecified intactability, vomiting of unspecified type R11.2 [facility] [address] 58861- 0423 Sep, COPD (chronic obstructive pulmonary disease) J44.9 ; Tobacco abuse Z72.0 ; Tear of left supraspinatus tendon, subsequent encounter S46.812D and Type 2 diabetes mellitus with unspecified complications E11.8 [facility] [id number] [place] [address] 48358- 1040 Sep, [facility] [address] 69061- 6606 Aug, Left anterior shoulder pain M25.512 [facility] [id number] [place] [address] 37597- 0856 Aug, Left anterior shoulder pain M25.512 and Low back pain M54.5 [facility] [id number] [place] [address] 17175- 3415 Aug, [facility] [id number] [place] [address] 16548- 8877 Aug, [facility] [address] 55087- 8163 Aug, [facility] [id number] [place] [address] 17645- 7513 Aug, [facility] [place] [address] [place] [address]- 9098 Aug, Type 2 diabetes mellitus with unspecified complications E11.8 [facility] [address] 70126- 0415 Aug, Type 2 diabetes mellitus with unspecified [...] E55.9 and GERD (gastroesophageal reflux disease) K21.9 [facility] [address] 49180- 4195 Aug, [facility] [place] [address] 61403- 2864 May, [facility] [address] 07940- 8742 Apr, [facility] [address] 76000- 5209 Apr, Type 2 diabetes mellitus with unspecified [...] S49.92XA and Anxiety associated with depression F41.8 [facility] [place] [address] 45499- 0082 Apr, [facility] [place] [address] 87358- 1392 Apr, [facility] [address] 98893- 3033 Apr, [facility] [id number], [place] [address]- 5552 Mar, [facility] [address], [place] [address]- 0529 Feb, [facility] [address], [place] [address]- 3666 Feb, [facility] [address], [place] [address]- 7982 Jan, [facility] [address], [place] [address]- 8957 Jan, [facility] [address], [place] [address]- 0373 Jan, Type 2 diabetes mellitus with unspecified complications E11.8 ; Essential hypertension I10 and Vitamin D deficiency E55.9 [facility] [address], [place] [address]- 2097 Dec, Type 2 diabetes mellitus with unspecified complications E11.8 ; Essential hypertension I10 ; Other chronic pain G89.29 ; Anxiety associated with depression F41.8 ; Bronchitis J40 ; Vitamin D deficiency E55.9 and COPD (chronic obstructive pulmonary disease) J44.9 [facility] [address], [place] [address]- 8478 Nov, [facility] [address], [place] [address]- 5685 October, [facility] [address], [place] [address]- 8950 October, [facility] [address], [place] [address]- 6885 October, [facility] [address], [place] [address]- 2989 October, Dysuria R30.0 ; Bronchitis J40 ; Anxiety associated with depression F41.8 and Type 2 diabetes mellitus with unspecified complications E11.8 [facility] [address], [place] [address]- 5675 October, Chronic renal insufficiency N18.9 ; Elevated white blood cell count D72.829 and Frequent UTI N39.0 [facility] [id number] [place] [address] 48841- 8154 October, Chronic renal insufficiency N18.9 ; Elevated white blood cell count D72.829 and Frequent UTI N39.0 [facility] [id number] [place] [address] 81033- 6902 October, [facility] [id number] [place] [address] 59554- 8019 Sep, Type 2 diabetes mellitus with unspecified complications E11.8 ; Essential hypertension I10 ; COPD (chronic obstructive pulmonary disease ) J44.9 and Hospital discharge follow-up Z09 [facility] [id number] [place] [address] 91943- 7710 Sep, [id number] [place] [address] 67435- 6340 Sep, Dyspnea R06.00 ; Other chronic pain G89.29 ; Dysuria R30.0 ; Diaphoresis R61 ; Jaundice R17 ; COPD (chronic obstructive pulmonary disease) J44.9 ; Type 2 diabetes mellitus with unspecified complications E11.8 ; Excessive daytime sleepiness G47.19 and Oliguria R34 [address] [place] [address] 32417- 8353 Sep, [address] [place] [address] 39707- 8051 Sep, Essential hypertension I10 ; Anxiety associated with depression F41.8 ; Mixed hyperlipidemia E78.2 ; Dyspnea R06.00 ; Shortness of breath R06.02 and Chest pain, unspecified R07.9 [address] [place] [address] 18535- 9329 Sep, Chest pain R07.9 ; Hyperlipemia E78.5 ; Type 2 diabetes mellitus with unspecified complications E11.8 ; Essential hypertension I10 ; Other chronic pain G89.29 ; Anxiety associated with depression F41.8 ; COPD ( chronic obstructive pulmonary disease) J44.9 ; Low vitamin D level E55.9 ; Tobacco abuse Z72.0 ; Hypertriglyceridemia E78.1 and Abnormal laboratory test R89.9 [facility] [id number] [place] [address] 83950- 4553 Aug, Pneumonia J18.9 ; Hypertriglyceridemia E78.1 ; COPD ( chronic obstructive pulmonary disease) J44.9 and Hyperlipidemia E78.5 [id number] [place] [address] 06949- 7450 Aug, Shortness of breath R06.02 ; Anxiety associated with depression F41.8 and Chest pain, unspecified R07.9 [address] [place] [id number] [place] [address] 95593- 8430 Jul, [address] 34045- 4605 Jun, Anxiety associated with depression F41.8 ; [...] unspecified type R11.2 and Tobacco abuse Z72.0 [facility] [id number] [place] [address] 52757- 6680 May, Hyperlipemia E78.5 [id number] [place] [address] 74442- 8067 May, [facility] [id number] [place] [address] 07135- 1405 May, Type 2 diabetes mellitus with unspecified complications E11.8 [address] [place] [id number] [place] [address] 44951- 4793 May, [address] 65898- 1295 May, Anxiety associated with depression F41.8 ; Type 2 diabetes mellitus with unspecified complications E11.8 ; Essential hypertension I10 ; Peripheral neuropathy G62.9 ; Low back pain M54.5 ; Other chronic pain G89.29 ; GERD (gastroesophageal reflux disease) K21.9 ; Insomnia G47.00 ; COPD (chronic obstructive pulmonary disease) J44.9 ; URI (upper respiratory infection) J06.9 and Depression F32.[address] 54185- 5260 May, Low back pain M54.5 ; Anxiety about health F41.8 ; Generalized anxiety disorder F41.1 and Acute stress reaction F43.[address] 74507- 0465 May, [address] [id number] [place] [address] 75903- 3376 Apr, Diabetes E11.9 ; Type 2 diabetes mellitus with unspecified complications E11.8 ; Essential hypertension I10 ; Peripheral neuropathy G62.9 ; Low back pain M54.5 ; Other chronic pain G89.29 ; GERD (gastroesophageal reflux disease) K21.9 ; Anxiety associated with depression F41.8 ; Muscle spasm of calf M62.831 ; Insomnia G47.00 and COPD (chronic obstructive pulmonary disease) J44.9 [address] [place] [address] 88988- 8504 May, [address] 89847- 4403 May, IMMUNIZATIONS No Known Immunizations SOCIAL HISTORY Never Assessed REASON FOR VISIT art HERNANDES PLAN OF CARE VITAL SIGNS MEDICATIONS Unknown [...]
--- OUTSIDE RECORDS SUMMARY | 2018-02-19 16:57 | XMS REPORT ---
Author Author KATIE JEFFRIES Organization [facility] Address [address] [place] [address] Care Team Providers Care Quiller Tender Name Role Phone MERVIN KATIE Unavailable PROBLEMS Type Condition ICD9-CM Code [id number] Code Onset Dates Condition Status SNOMED Code Problem Other chronic pain G89.29 Active 72335414 Problem Insomnia G47.00 Active 981208180 Problem Type 2 diabetes mellitus with unspecified complications E11.8 Active 38680253 Problem Constipation by delayed colonic transit K59.01 Active 16268401 Problem Chronic kidney disease (CKD) stage G3b/A1, moderately decreased glomerular filtration rate (GFR) between 30-44 mL/min/1.73 square meter and albuminuria creatinine ratio less than 30 mg/g N18.3 Active 013489168 Problem Mixed hyperlipidemia E78.2 Active 672764352 Problem Controlled substance agreement signed Z79.899 Active 168686770 Problem 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 [id number] [address] Jan, [facility] [address] [address] Jan, Other chronic pain G89.29 and Anxiety associated with depression F41.8 [facility] [id number] [place] [address] 38873- 4399 Jan, [facility] [id number] [place] [address] 08237- 5959 Dec, [facility] [id number] [place] [address] 52059- 6443 Dec, Type 2 diabetes mellitus with unspecified [...] and 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 [place] [id number] [place] [address] 94096- 5249 Dec, [place] [id number] [place] [address] 70851- 9149 Dec, Type 2 diabetes mellitus with unspecified complications E11.8 [facility] [id number] [place] [address] 27015- 9246 Dec, [facility] [id number] [place] [address] 35326- 6504 Dec, Type 2 diabetes mellitus with unspecified complications E11.8 [facility] [id number] [place] [address] 67541- 3509 Dec, Type 2 diabetes mellitus with unspecified complications E11.8 [facility] [id number] [place] [address] 75040- 3490 Dec, [facility] [id number] [place] [address] 75885- 3358 Dec, Type 2 diabetes mellitus with unspecified complications E11.8 [facility] [id number] [place] [address] 41850- 6498 Dec, [facility] [id number] [address]64 Dec, [facility] [address] [facility] [id number] [address] Dec, [facility] [id number] [address] 8536 Dec, [facility] [address] [address] Dec, [facility] [id number] [address] 2875 Dec, Other chronic pain G89.29 and Anxiety associated with depression F41.8 [facility] [id number] [address] 6730 Dec, Type 2 diabetes mellitus with unspecified complications E11.8 [facility] [address] [address] Nov, [facility] [address] [address] Nov, [facility] [address] [address] 3962 Nov, [facility] [id number], [place] [address] 7050 Nov, [facility] [id number] [address] 1251 Nov, Type 2 diabetes mellitus with unspecified complications E11.8 [facility] [address] [facility] [id number] [address] Nov, [facility] [id number] [address] 0996 Nov, Type 2 diabetes mellitus with unspecified complications E11.8 [facility] [id number] [address] 8632 Nov, Other chronic pain G89.29 and Anxiety associated with depression F41.8 [facility] [address] [facility] [id number] [place] [address] 2546 08 Nov, 2017 Chronic renal insufficiency N18.9 [facility] [id number] [address] 2546 Nov, Other chronic pain G89.29 [facility] [id number] [address] 2546 Nov, Type 2 diabetes mellitus with unspecified complications E11.8 [facility] [address] [facility] [id number] [place] [address] October, [facility] [id number] [address] October, [facility] [id number] [address]- 4014 October, Type 2 diabetes mellitus with unspecified complications E11.8 [facility] [address] [address] 6161 October, [facility] [id number] [address] October, [facility] [address] [address] 3080 October, Type 2 diabetes mellitus with unspecified complications E11.8 [facility] [address] [address] 6436 October, [facility] [id number] [address] 2546 October, [facility] [id number] [address]- 5757 October, Type 2 diabetes mellitus with unspecified complications E11.8 [facility] [id number] [address]- 2541 October, Type 2 diabetes mellitus with unspecified complications E11.8 ; Essential hypertension I10 ; Chronic renal insufficiency N18.9 ; BMI 40.0-44.9, adult Z68.41 ; Other chronic pain G89.29 ; Anxiety associated with depression F41.8 and Right medial knee pain M25.561 [place] [address] [address]29- 6187 October, GERD (gastroesophageal reflux disease) K21.9 and Anxiety associated with depression F41.8 [place] [address] 12617- 6301 October, Anxiety associated with depression F41.8 [place] [address] 71907- 0008 Sep, [place] [address] 99435- 5325 Sep, GERD (gastroesophageal reflux disease) K21.9 and Anxiety associated with depression F41.8 [place] [address] 02134- 4213 Aug, [place] [address] 58250- 6964 Aug, [facility] [address] [address]52 -0717 Aug, Acute recurrent maxillary sinusitis J01.01 [place] [address] 30770- 0399 Aug, [place] [address] 84098- 5015 Aug, GERD (gastroesophageal reflux disease) K21.9 and Other chronic pain G89.29 [place] [address] 29622- 1020 Aug, [facility] [address] 38885 -6635 Aug, [place] [address] 43074- 7605 Aug, Controlled substance agreement signed Z79.899 ; [...] and Enlarged lymph nodes in armpit R59.0 [place] [address] 00963- 0624 Aug, Anxiety associated with depression F41.8 and GERD ( gastroesophageal reflux disease) K21.9 [place] [address] 46191- 4406 Jul, Controlled substance agreement signed Z79.899 [place] [address] 31811- 8576 Jun, Anxiety associated with depression F41.8 and GERD ( gastroesophageal reflux disease) K21.9 [place] [address] 28955- 4264 May, Anxiety associated with depression F41.8 and GERD ( gastroesophageal reflux disease) K21.9 [place] [id number] [place] [address] 62933- 9156 Apr, Mixed hyperlipidemia E78.2 [place] [id number] [place] [address] 04103- 9062 Apr, Anxiety associated with depression F41.8 and GERD ( gastroesophageal reflux disease) K21.9 [place] [id number] [place] [address] 99124- 7540 Apr, [place] [address] 93568- 2290 Apr, Type 2 diabetes mellitus with unspecified complications E11.8 [place] [address] 65902- 7531 Apr, [place] [id number] [place] [address] 93099- 5080 Apr, Type 2 diabetes mellitus with unspecified complications E11.8 [place] [id number] [place] [address] 24987- 5697 Apr, [place] [id number] [place] [address] 97117- 8661 Mar, GERD (gastroesophageal reflux disease) K21.9 and Anxiety associated with depression F41.8 [place] [id number] [place] [address] 46651- 0151 Mar, 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 [place] [id number] [place] [address] 85225- 9312 Mar, Essential hypertension I10 ; Anxiety associated with depression F41.8 ; COPD (chronic obstructive pulmonary disease) J44.9 ; Mixed hyperlipidemia E78.2 ; Vitamin D deficiency E55.9 ; GERD (gastroesophageal reflux disease) K21.9 ; Type 2 diabetes mellitus with unspecified complications E11.8 ; Other chronic pain G89.29 and Chronic renal insufficiency N18.9 [place] [id number] [place] [address] 97369- 9522 Mar, Chronic renal insufficiency N18.9 [place] [id number] [place] [address] 38793- 7664 Feb, GERD (gastroesophageal reflux disease) K21.9 and Type 2 diabetes mellitus with unspecified complications E11.8 [place] [id number] [place] [address] 52171- 4840 Feb, Anxiety associated with depression F41.8 and Tear of left supraspinatus tendon, subsequent encounter S46.812D [place] [id number] [place] [address] 35800- 6774 Jan, Pre-operative examination for internal medicine Z01.818 [place] [address] 86247- 2462 Jan, Anxiety associated with depression F41.8 and Left anterior shoulder pain M25.512 [place] [id number] [place] [address] 59690- 6957 Jan, [place] [id number] [place] [address] 05613- 5580 Jan, [place] [id number] [place] [address] 05559- 7043 Jan, Type 2 diabetes mellitus with unspecified complications E11.8 ; Essential hypertension I10 ; Other chronic pain G89.29 ; GERD ( gastroesophageal reflux disease) K21.9 ; Anxiety associated with depression F41.8 ; Insomnia G47.00 ; Hypertriglyceridemia E78.1 ; Left anterior shoulder pain M25.512 and Tobacco abuse Z72.0 [id number] [place] [address] 34271- 4029 Dec, Anxiety associated with depression F41.8 and Tear of left supraspinatus tendon, subsequent encounter S46.812D [place] [id number] [place] [address] 26255- 9031 Nov, [address] [id number] [place] [address] 91757- 0475 Nov, Anxiety associated with depression F41.8 and Tear of left supraspinatus tendon, subsequent encounter S46.812D [id number] [place] [address] 66731- 4804 Nov, Abnormal lung sounds R09.89 and COPD (chronic obstructive pulmonary disease) with acute bronchitis J44.0 [id number] [place] [address] 71768- 9684 Nov, [id number] [place] [address] 68997- 8728 October, COPD (chronic obstructive pulmonary disease) with acute bronchitis J44.0 ; Abnormal lung sounds R09.89 and Medication refill Z76.[id number] [place] [address] 17940- 5014 October, Anxiety associated with depression F41.8 [place] [id number] [place] [address] 65441- 1990 Sep, Nausea and vomiting, unspecified intactability, vomiting of unspecified type R11.2 [place] [id number] [place] [address] 06205- 6268 Sep, COPD (chronic obstructive pulmonary disease) J44.9 ; Tobacco abuse Z72.0 ; Tear of left supraspinatus tendon, subsequent encounter S46.812D and Type 2 diabetes mellitus with unspecified complications E11.8 [place] [id number] [place] [address] 52748- 3953 Sep, [place] [id number] [place] [address] 76637- 6496 Aug, Left anterior shoulder pain M25.512 [place] [id number] [place] [address] 03560- 1100 Aug, Left anterior shoulder pain M25.512 and Low back pain M54.5 [place] [id number] [place] [address] 97553- 0739 Aug, [place] [id number] [place] [address] 44471- 1463 Aug, [place] [id number] [place] [address] 54236- 7243 Aug, [place] [id number] [place] [address] 01464- 4587 Aug, [place] [id number] [place] [address] 53536- 0438 Aug, Type 2 diabetes mellitus with unspecified complications E11.8 [place] [id number] [place] [address] 50869- 8862 Aug, Type 2 diabetes mellitus with unspecified [...] E55.9 and GERD (gastroesophageal reflux disease) K21.9 [place] [id number] [place] [address] 30103- 8413 Aug, [place] [id number] [place] [address] 53426- 0203 May, [place] [id number] [place] [address] 79977- 3526 Apr, [place] [id number] [place] [address] 95335- 4674 Apr, Type 2 diabetes mellitus with unspecified [...] S49.92XA and Anxiety associated with depression F41.8 [place] [address] [place] [address] 00139- 3512 Apr, [place] [id number] [place] [address] 21770- 7980 Apr, [place] [id number] [place] [address] 77833- 7204 Apr, [place] [id number] [place] [address] 72228- 0730 Mar, [place] [address] [address]- 9135 Feb, [place] [address] [address]- 9939 Feb, [place] [id number] [place] [address] 01183- 8093 Jan, [place] [id number] [place] [address] 29429- 3483 Jan, [place] [id number] [place] [address] 65691- 6937 Jan, Type 2 diabetes mellitus with unspecified complications E11.8 ; Essential hypertension I10 and Vitamin D deficiency E55.9 [place] [id number] [place] [address] 23679- 8301 Dec, Type 2 diabetes mellitus with unspecified complications E11.8 ; Essential hypertension I10 ; Other chronic pain G89.29 ; Anxiety associated with depression F41.8 ; Bronchitis J40 ; Vitamin D deficiency E55.9 and COPD (chronic obstructive pulmonary disease) J44.9 [place] [id number] [place] [address] 68572- 9359 Nov, [place] [id number] [place] [address] 61710- 0305 October, [place] [id number] [place] [address] 07761- 7096 October, [place] [id number] [place] [address] 59694- 7111 October, [place] [id number] [place] [address] 54766- 3792 October, Dysuria R30.0 ; Bronchitis J40 ; Anxiety associated with depression F41.8 and Type 2 diabetes mellitus with unspecified complications E11.8 [place] [id number] [place] [address] 61998- 2591 October, Chronic renal insufficiency N18.9 ; Elevated white blood cell count D72.829 and Frequent UTI N39.0 [place] [id number] [place] [address] 87071- 6528 October, Chronic renal insufficiency N18.9 ; Elevated white blood cell count D72.829 and Frequent UTI N39.0 [place] [address] [place] [address] 84604- 8352 October, [place] [id number] [place] [address] 92133- 0702 Sep, Type 2 diabetes mellitus with unspecified complications E11.8 ; Essential hypertension I10 ; COPD (chronic obstructive pulmonary disease ) J44.9 and Hospital discharge follow-up Z09 [place] [id number] [place] [address] 83397- 7461 Sep, [place] [id number] [place] [address] 42410- 9760 Sep, Dyspnea R06.00 ; Other chronic pain G89.29 ; Dysuria R30.0 ; Diaphoresis R61 ; Jaundice R17 ; COPD (chronic obstructive pulmonary disease) J44.9 ; Type 2 diabetes mellitus with unspecified complications E11.8 ; Excessive daytime sleepiness G47.19 and Oliguria R34 [place] [address] [place] [address] 96789- 6408 Sep, [place] [address] [place] [address] 00068- 1027 Sep, Essential hypertension I10 ; Anxiety associated with depression F41.8 ; Mixed hyperlipidemia E78.2 ; Dyspnea R06.00 ; Shortness of breath R06.02 and Chest pain, unspecified R07.9 [place] [address] [place] [address] 46091- 6036 Sep, Chest pain R07.9 ; Hyperlipemia E78.5 ; Type 2 diabetes mellitus with unspecified complications E11.8 ; Essential hypertension I10 ; Other chronic pain G89.29 ; Anxiety associated with depression F41.8 ; COPD ( chronic obstructive pulmonary disease) J44.9 ; Low vitamin D level E55.9 ; Tobacco abuse Z72.0 ; Hypertriglyceridemia E78.1 and Abnormal laboratory test R89.9 [place] [address] [place] [address] 45073- 3424 Aug, Pneumonia J18.9 ; Hypertriglyceridemia E78.1 ; COPD ( chronic obstructive pulmonary disease) J44.9 and Hyperlipidemia E78.5 [place] [id number] [place] [address] 49179- 2429 Aug, Shortness of breath R06.02 ; Anxiety associated with depression F41.8 and Chest pain, unspecified R07.9 [place] [id number] [place] [address] 90086- 1778 Jul, [place] [id number] [place] [address] 49369- 8712 Jun, Anxiety associated with depression F41.8 ; [...] unspecified type R11.2 and Tobacco abuse Z72.0 [place] [id number] [place] [address] 56126- 4972 May, Hyperlipemia E78.5 [place] [id number] [place] [address] 53777- 5824 May, [place] [id number] [place] [address] 11285- 7761 May, Type 2 diabetes mellitus with unspecified complications E11.8 [place] [id number] [place] [address] 44506- 0343 May, [place] [id number] [place] [address] 74541- 1988 May, Anxiety associated with depression F41.8 ; Type 2 diabetes mellitus with unspecified complications E11.8 ; Essential hypertension I10 ; Peripheral neuropathy G62.9 ; Low back pain M54.5 ; Other chronic pain G89.29 ; GERD (gastroesophageal reflux disease) K21.9 ; Insomnia G47.00 ; COPD (chronic obstructive pulmonary disease) J44.9 ; URI (upper respiratory infection) J06.9 and Depression F32.9 [place] [id number] [place] [address] 39892- 5318 May, Low back pain M54.5 ; Anxiety about health F41.8 ; Generalized anxiety disorder F41.1 and Acute stress reaction F43.[address] 81125- 2970 May, [address] 70338- 5573 Apr, Diabetes E11.9 ; Type 2 diabetes mellitus with unspecified complications E11.8 ; Essential hypertension I10 ; Peripheral neuropathy G62.9 ; Low back pain M54.5 ; Other chronic pain G89.29 ; GERD (gastroesophageal reflux disease) K21.9 ; Anxiety associated with depression F41.8 ; Muscle spasm of calf M62.831 ; Insomnia G47.00 and COPD (chronic obstructive pulmonary disease) J44.[address] 56175- 5211 May, [place] [id number] [place] [address] 76184- 0868 May, IMMUNIZATIONS No Known Immunizations SOCIAL HISTORY Never Assessed REASON FOR VISIT insulin PLAN OF CARE VITAL SIGNS MEDICATIONS Unknown [...]
--- OUTSIDE RECORDS SUMMARY | 2018-02-19 16:57 | XMS REPORT ---
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 Name Role Phone MERVIN KATIE Unavailable PROBLEMS Type Condition ICD9-CM Code HCI04-FO Code Onset Dates Condition Status SNOMED Code Problem Other chronic pain G89.29 Active 90784631 Problem Insomnia G47.00 Active 579999292 Problem Type 2 diabetes mellitus with unspecified complications E11.8 Active 67146134 Problem Constipation by delayed colonic transit K59.01 Active 42605370 Problem Chronic kidney disease (CKD) stage G3b/A1, moderately decreased glomerular filtration rate (GFR) between 30-44 mL/min/1.73 square meter and albuminuria creatinine ratio less than 30 mg/g N18.3 Active 906076543 Problem Mixed hyperlipidemia E78.2 Active 973379180 Problem Controlled substance agreement signed Z79.899 Active 382084742 Problem 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 Active 84876476 Problem Vitamin D deficiency E55.9 Active 75663889 Problem Peripheral neuropathy G62.9 Active 97932207 Problem Essential hypertension I10 Active 15585443 Problem Osteoarthritis of acromioclavicular joint M19.019 Active 114206379 Problem COPD (chronic obstructive pulmonary disease) J44.9 Active 70351315 Problem Anxiety associated with depression F41.8 Active 926152068 Problem GERD (gastroesophageal reflux disease) K21.9 Active 242217128 ALLERGIES No Information ENCOUNTERS Encounter Location Date Diagnosis [facility] [id number] [address] Jan, [facility] [address] [address] Jan, Other chronic pain G89.29 and Anxiety associated with depression F41.8 [facility] [id number] [place] [address] 84260- 7142 Jan, [facility] [id number] [place] [address] 76286- 0329 Dec, [facility] [id number] [place] [address] 35943- 3650 Dec, Type 2 diabetes mellitus with unspecified [...] and 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 [facility] [id number] [place] [address] 08281- 0448 Dec, [facility] [id number] [place] [address] 93522- 6742 Dec, Type 2 diabetes mellitus with unspecified complications E11.8 [facility] [id number] [place] [address] 91657- 9606 Dec, [facility] [id number] [place] [address] 79540- 4090 Dec, Type 2 diabetes mellitus with unspecified complications E11.8 [facility] [id number] [place] [address] 98544- 3934 Dec, Type 2 diabetes mellitus with unspecified complications E11.8 [facility] [id number] [place] [address] 01510- 8748 Dec, [facility] [id number] [place] [address] 10330- 1701 Dec, Type 2 diabetes mellitus with unspecified complications E11.8 [facility] [id number] [place] [address] 75378- 2325 Dec, [facility] [id number] [address] 9606 Dec, [facility] [address] [facility] [id number] [address] 3526 Dec, [facility] [id number], [place] [address] 3716 Dec, [facility] [address], [place] [address] 4862 Dec, [facility] [id number], [place] [address] 4701 Dec, Other chronic pain G89.29 and Anxiety associated with depression F41.8 [facility] [id number], [place] [address] 0061 Dec, Type 2 diabetes mellitus with unspecified complications E11.8 [facility] [address], [place] [address] 0752 Nov, [facility] [address], [place] [address] 4113 Nov, [facility] [address], [place] [address] 4585 Nov, [facility] [id number] [address] 2787 Nov, [facility] [id number], [place] [address] 6368 Nov, Type 2 diabetes mellitus with unspecified complications E11.8 [facility] [address] [facility] [id number] [address] 8542 Nov, [facility] [id number], [place] [address] 2252 Nov, Type 2 diabetes mellitus with unspecified complications E11.8 [facility] [id number] [address] 8384 Nov, Other chronic pain G89.29 and Anxiety associated with depression F41.8 [facility] [address] [facility] [id number] [place] [address] 2546 08 Nov, 2017 Chronic renal insufficiency N18.9 [facility] [address] [place] [address] 2546 Nov, Other chronic pain G89.29 [facility] [address] [place] [address] 2546 Nov, Type 2 diabetes mellitus with unspecified complications E11.8 [facility] [address] [facility] [id number] [place] [address] 9716 October, [facility] [address] [place] [address] 7906 October, [facility] [address] [place] [address]- 4204 October, Type 2 diabetes mellitus with unspecified complications E11.8 [facility] [address], [place] [address]- 3057 October, [facility] [address] [place] [address]- 3970 October, [facility] [address], [place] [address]- 9800 October, Type 2 diabetes mellitus with unspecified complications E11.8 [facility] [address], [place] [address]- 2686 October, [facility] [id number], [place] [address]- 2546 October, [facility] [id number], [place] [address]- 6189 October, Type 2 diabetes mellitus with unspecified complications E11.8 [facility] [id number] [place] [address]- 254 October, Type 2 diabetes mellitus with unspecified complications E11.8 ; Essential hypertension I10 ; Chronic renal insufficiency N18.9 ; BMI 40.0-44.9, adult Z68.41 ; Other chronic pain G89.29 ; Anxiety associated with depression F41.8 and Right medial knee pain M25.561 [address] [address] [address] [address]- 1020 October, GERD (gastroesophageal reflux disease) K21.9 and Anxiety associated with depression F41.8 [place] [address] 46730- 0277 October, Anxiety associated with depression F41.8 [place] [address] 79029- 0229 Sep, [place] [address] 89804- 7928 Sep, GERD (gastroesophageal reflux disease) K21.9 and Anxiety associated with depression F41.8 [place] [address] 14975- 1691 Aug, [place] [address] 51530- 4641 Aug, [facility] [address] [address] -[address] Aug, Acute recurrent maxillary sinusitis J01.01 [address] [place] [address] 91670- 3355 Aug, [place] [address] 20740- 1308 Aug, GERD (gastroesophageal reflux disease) K21.9 and Other chronic pain G89.29 [place] [address] 53166- 1414 Aug, [facility] [address] 22242 -2288 Aug, [place] [address] 78906- 2015 Aug, Controlled substance agreement signed Z79.899 ; [...] and Enlarged lymph nodes in armpit R59.0 [place] [address] 41326- 1664 Aug, Anxiety associated with depression F41.8 and GERD ( gastroesophageal reflux disease) K21.9 [place] [address] 99227- 7919 Jul, Controlled substance agreement signed Z79.899 [address] [place] [address] 97210- 1301 Jun, Anxiety associated with depression F41.8 and GERD ( gastroesophageal reflux disease) K21.9 [place] [address] 60341- 7324 May, Anxiety associated with depression F41.8 and GERD ( gastroesophageal reflux disease) K21.9 [place] [id number] [place] [address] 33230- 4047 Apr, Mixed hyperlipidemia E78.2 [facility] [id number] [place] [address] 45867- 7931 Apr, Anxiety associated with depression F41.8 and GERD ( gastroesophageal reflux disease) K21.9 [place] [id number] [place] [address] 98131- 4649 Apr, [place] [address] 26158- 9451 Apr, Type 2 diabetes mellitus with unspecified complications E11.8 [place] [address] 63297- 2861 Apr, [place] [id number] [place] [address] 69837- 9724 Apr, Type 2 diabetes mellitus with unspecified complications E11.8 [facility] [id number] [place] [address] 37172- 6470 Apr, [place] [id number] [place] [address] 97892- 5863 Mar, GERD (gastroesophageal reflux disease) K21.9 and Anxiety associated with depression F41.8 [place] [id number] [place] [address] 86276- 2691 Mar, 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 [place] [id number] [place] [address] 42496- 7161 Mar, Essential hypertension I10 ; Anxiety associated with depression F41.8 ; COPD (chronic obstructive pulmonary disease) J44.9 ; Mixed hyperlipidemia E78.2 ; Vitamin D deficiency E55.9 ; GERD (gastroesophageal reflux disease) K21.9 ; Type 2 diabetes mellitus with unspecified complications E11.8 ; Other chronic pain G89.29 and Chronic renal insufficiency N18.9 [place] [id number] [place] [address] 51643- 8896 Mar, Chronic renal insufficiency N18.9 [facility] [id number] [place] [address] 57843- 0181 Feb, GERD (gastroesophageal reflux disease) K21.9 and Type 2 diabetes mellitus with unspecified complications E11.8 [facility] [id number] [place] [address] 56911- 0515 Feb, Anxiety associated with depression F41.8 and Tear of left supraspinatus tendon, subsequent encounter S46.812D [place] [id number] [place] [address] 03461- 5379 Jan, Pre-operative examination for internal medicine Z01.818 [place] [address] 24771- 2742 Jan, Anxiety associated with depression F41.8 and Left anterior shoulder pain M25.512 [place] [id number] [place] [address] 17903- 2756 Jan, [place] [id number] [place] [address] 39315- 5973 Jan, [place] [id number] [place] [address] 42752- 8079 Jan, Type 2 diabetes mellitus with unspecified complications E11.8 ; Essential hypertension I10 ; Other chronic pain G89.29 ; GERD ( gastroesophageal reflux disease) K21.9 ; Anxiety associated with depression F41.8 ; Insomnia G47.00 ; Hypertriglyceridemia E78.1 ; Left anterior shoulder pain M25.512 and Tobacco abuse Z72.0 [id number] [place] [address] 21857- 3341 Dec, Anxiety associated with depression F41.8 and Tear of left supraspinatus tendon, subsequent encounter S46.812D [place] [id number] [place] [address] 98347- 6971 Nov, [id number] [place] [address] 62631- 5500 Nov, Anxiety associated with depression F41.8 and Tear of left supraspinatus tendon, subsequent encounter S46.812D [id number] [place] [address] 76869- 7578 Nov, Abnormal lung sounds R09.89 and COPD (chronic obstructive pulmonary disease) with acute bronchitis J44.0 [id number] [place] [address] 40737- 0895 Nov, [place] [id number] [place] [address] 54062- 9724 October, COPD (chronic obstructive pulmonary disease) with acute bronchitis J44.0 ; Abnormal lung sounds R09.89 and Medication refill Z76.[id number] [place] [address] 73308- 6100 October, Anxiety associated with depression F41.8 [place] [id number] [place] [address] 67363- 8329 Sep, Nausea and vomiting, unspecified intactability, vomiting of unspecified type R11.2 [place] [id number] [place] [address] 90151- 0107 Sep, COPD (chronic obstructive pulmonary disease) J44.9 ; Tobacco abuse Z72.0 ; Tear of left supraspinatus tendon, subsequent encounter S46.812D and Type 2 diabetes mellitus with unspecified complications E11.8 [place] [id number] [place] [address] 26431- 5671 Sep, [place] [id number] [place] [address] 29425- 9947 Aug, Left anterior shoulder pain M25.512 [place] [id number] [place] [address] 86003- 0120 Aug, Left anterior shoulder pain M25.512 and Low back pain M54.5 [place] [id number] [place] [address] 77934- 2185 Aug, [place] [id number] [place] [address] 36660- 4144 Aug, [place] [id number] [place] [address] 86013- 4507 Aug, [place] [id number] [place] [address] 12190- 1980 Aug, [place] [id number] [place] [address] 48111- 0903 Aug, Type 2 diabetes mellitus with unspecified complications E11.8 [facility] [facility] [id number] [place] [address] 95843- 2910 Aug, Type 2 diabetes mellitus with unspecified [...] E55.9 and GERD (gastroesophageal reflux disease) K21.9 [place] [id number] [place] [address] 43705- 1466 Aug, [place] [id number] [place] [address] 92762- 7090 May, [place] [id number] [place] [address] 86020- 6742 Apr, [place] [id number] [place] [address] 15955- 2932 Apr, Type 2 diabetes mellitus with unspecified [...] S49.92XA and Anxiety associated with depression F41.8 [place] [address] [place] [address] 93237- 7392 Apr, [place] [id number] [place] [address] 03583- 4134 Apr, [place] [id number] [place] [address] 72356- 5176 Apr, [place] [id number] [place] [address] 70535- 7901 Mar, [address] [address] [address]- 8646 Feb, [place] [address] [address]- 1329 Feb, [place] [id number] [place] [address] 71266- 8731 Jan, [place] [id number] [place] [address] 55788- 3417 Jan, [place] [id number] [place] [address] 35115- 3168 Jan, Type 2 diabetes mellitus with unspecified complications E11.8 ; Essential hypertension I10 and Vitamin D deficiency E55.9 [place] [id number] [place] [address] 93962- 0106 Dec, Type 2 diabetes mellitus with unspecified complications E11.8 ; Essential hypertension I10 ; Other chronic pain G89.29 ; Anxiety associated with depression F41.8 ; Bronchitis J40 ; Vitamin D deficiency E55.9 and COPD (chronic obstructive pulmonary disease) J44.9 [address] [id number] [place] [address] 77557- 4194 Nov, [place] [id number] [place] [address] 50274- 3237 October, [place] [id number] [place] [address] 53512- 6951 October, [place] [id number] [place] [address] 39256- 3329 October, [place] [id number] [place] [address] 42904- 9897 October, Dysuria R30.0 ; Bronchitis J40 ; Anxiety associated with depression F41.8 and Type 2 diabetes mellitus with unspecified complications E11.8 [place] [id number] [place] [address] 05497- 8713 October, Chronic renal insufficiency N18.9 ; Elevated white blood cell count D72.829 and Frequent UTI N39.0 [place] [id number] [place] [address] 27807- 8934 October, Chronic renal insufficiency N18.9 ; Elevated white blood cell count D72.829 and Frequent UTI N39.0 [place] [address] [place] [address] 14802- 1624 October, [place] [id number] [place] [address] 79514- 8826 Sep, Type 2 diabetes mellitus with unspecified complications E11.8 ; Essential hypertension I10 ; COPD (chronic obstructive pulmonary disease ) J44.9 and Hospital discharge follow-up Z09 [place] [id number] [place] [address] 78403- 1447 Sep, [place] [id number] [place] [address] 81451- 3855 Sep, Dyspnea R06.00 ; Other chronic pain G89.29 ; Dysuria R30.0 ; Diaphoresis R61 ; Jaundice R17 ; COPD (chronic obstructive pulmonary disease) J44.9 ; Type 2 diabetes mellitus with unspecified complications E11.8 ; Excessive daytime sleepiness G47.19 and Oliguria R34 [place] [address] [place] [address] 06060- 6390 Sep, [place] [address] [place] [address] 88234- 5084 Sep, Essential hypertension I10 ; Anxiety associated with depression F41.8 ; Mixed hyperlipidemia E78.2 ; Dyspnea R06.00 ; Shortness of breath R06.02 and Chest pain, unspecified R07.9 [place] [address] [place] [address] 08933- 1118 Sep, Chest pain R07.9 ; Hyperlipemia E78.5 ; Type 2 diabetes mellitus with unspecified complications E11.8 ; Essential hypertension I10 ; Other chronic pain G89.29 ; Anxiety associated with depression F41.8 ; COPD ( chronic obstructive pulmonary disease) J44.9 ; Low vitamin D level E55.9 ; Tobacco abuse Z72.0 ; Hypertriglyceridemia E78.1 and Abnormal laboratory test R89.9 [place] [address] [place] [address] 42590- 5920 Aug, Pneumonia J18.9 ; Hypertriglyceridemia E78.1 ; COPD ( chronic obstructive pulmonary disease) J44.9 and Hyperlipidemia E78.5 [place] [id number] [place] [address] 06165- 8682 Aug, Shortness of breath R06.02 ; Anxiety associated with depression F41.8 and Chest pain, unspecified R07.9 [place] [id number] [place] [address] 17321- 7616 Jul, [place] [id number] [place] [address] 52985- 3717 Jun, Anxiety associated with depression F41.8 ; [...] unspecified type R11.2 and Tobacco abuse Z72.0 [place] [id number] [place] [address] 33814- 6937 May, Hyperlipemia E78.5 [place] [id number] [place] [address] 68175- 1209 May, [place] [id number] [place] [address] 70533- 6537 May, Type 2 diabetes mellitus with unspecified complications E11.8 [place] [id number] [place] [address] 27859- 0100 May, [place] [id number] [place] [address] 04089- 7981 May, Anxiety associated with depression F41.8 ; Type 2 diabetes mellitus with unspecified complications E11.8 ; Essential hypertension I10 ; Peripheral neuropathy G62.9 ; Low back pain M54.5 ; Other chronic pain G89.29 ; GERD (gastroesophageal reflux disease) K21.9 ; Insomnia G47.00 ; COPD (chronic obstructive pulmonary disease) J44.9 ; URI (upper respiratory infection) J06.9 and Depression F32.9 [place] [id number] [place] [address] 48400- 4000 May, Low back pain M54.5 ; Anxiety about health F41.8 ; Generalized anxiety disorder F41.1 and Acute stress reaction F43.0 [place] [address] 18811- 3706 May, [address] 06834- 5346 Apr, Diabetes E11.9 ; Type 2 diabetes mellitus with unspecified complications E11.8 ; Essential hypertension I10 ; Peripheral neuropathy G62.9 ; Low back pain M54.5 ; Other chronic pain G89.29 ; GERD (gastroesophageal reflux disease) K21.9 ; Anxiety associated with depression F41.8 ; Muscle spasm of calf M62.831 ; Insomnia G47.00 and COPD (chronic obstructive pulmonary disease) J44.9 [place] [id number] [place] [address] 84823- 4212 May, [place] [id number] [place] [address] 82715- 7385 May, IMMUNIZATIONS No Known Immunizations SOCIAL HISTORY Never Assessed REASON FOR VISIT Insulin Blood Sugar PLAN OF CARE VITAL SIGNS MEDICATIONS Medication Instructions Dosage Frequency Start Date End Date Duration Status NovoLog Flexpen 100 UNIT/ML 20 units three times with meals October, 30 days Active Levemir Flexpen 100 UNIT/ML Subcutaneous 2 times a day 30 units twice a day 12h October, 30 days Active RESULTS No Results PROCEDURES [...]
--- OUTSIDE RECORDS SUMMARY | 2018-02-19 16:58 | XMS REPORT ---
Author Author KATIE JEFFRIES Organization [facility] Address [address] [place] [address] Care Team Providers Care Power Operator Name Role Phone MERVIN KATIE Unavailable PROBLEMS Type Condition ICD9-CM Code HHW04-LS Code Onset Dates Condition Status SNOMED Code Problem Other chronic pain G89.29 Active 10510750 Problem Insomnia G47.00 Active 793558892 Problem Type 2 diabetes mellitus with unspecified complications E11.8 Active 03153277 Problem Constipation by delayed colonic transit K59.01 Active 12211274 Problem Chronic kidney disease (CKD) stage G3b/A1, moderately decreased glomerular filtration rate (GFR) between 30-44 mL/min/1.73 square meter and albuminuria creatinine ratio less than 30 mg/g N18.3 Active 812468475 Problem Mixed hyperlipidemia E78.2 Active 546987770 Problem Controlled substance agreement signed Z79.899 Active 029860179 Problem 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 Active 82638596 Problem Vitamin D deficiency E55.9 Active 46972156 Problem Peripheral neuropathy G62.9 Active 70497961 Problem Essential hypertension I10 Active 09952736 Problem Osteoarthritis of acromioclavicular joint M19.019 Active 566893313 Problem COPD (chronic obstructive pulmonary disease) J44.9 Active 76627022 Problem Anxiety associated with depression F41.8 Active 898053206 Problem GERD (gastroesophageal reflux disease) K21.9 Active 080524579 ALLERGIES No Information ENCOUNTERS Encounter Location Date Diagnosis [facility] [id number] [address] Jan, [facility] [id number] [address] Jan, Other chronic pain G89.29 and Anxiety associated with depression F41.8 [facility] [id number] [place] [address] 55262- 4681 Jan, [facility] [id number] [place] [address] 99951- 8438 Dec, [facility] [id number] [place] [address] 37042- 5150 Dec, Type 2 diabetes mellitus with unspecified [...] and 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 [place] [id number] [place] [place] [address] 90485- 0224 Dec, [place] [id number] [place] [address] 36910- 6332 Dec, Type 2 diabetes mellitus with unspecified complications E11.8 [facility] [id number] [place] [address] 18521- 7914 Dec, [facility] [id number] [place] [address] 13057- 4737 Dec, Type 2 diabetes mellitus with unspecified complications E11.8 [facility] [id number] [place] [address] 58119- 7914 Dec, Type 2 diabetes mellitus with unspecified complications E11.8 [facility] [id number] [place] [address] 93563- 1160 Dec, [facility] [id number] [place] [address] 39329- 3829 Dec, Type 2 diabetes mellitus with unspecified complications E11.8 [facility] [id number] [place] [address] 69101- 2598 Dec, [facility] [id number] [address] 5158 Dec, [facility] [address] [facility] [id number] [address] 7970 Dec, [facility] [id number] [address] 5446 Dec, [facility] [id number] [address] 5469 Dec, [facility] [id number], [place] [address] 5577 Dec, Other chronic pain G89.29 and Anxiety associated with depression F41.8 [facility] [id number] [address] 6976 Dec, Type 2 diabetes mellitus with unspecified complications E11.8 [facility] [id number], [place] [address] 1067 Nov, [facility] [id number] [address] 7312 Nov, [facility] [id number] [address] 5977 Nov, [facility] [id number] [address] 4637 Nov, [facility] [id number] [address] 6965 Nov, Type 2 diabetes mellitus with unspecified complications E11.8 [facility] [address] [facility] [id number], [place] [address] 79[address] Nov, [facility] [id number] [address] 5934 Nov, Type 2 diabetes mellitus with unspecified complications E11.8 [facility] [id number] [address] 0789 Nov, Other chronic pain G89.29 and Anxiety associated with depression F41.8 [facility] [address] [facility] [id number] [place] [address] 2546 08 Nov, 2017 Chronic renal insufficiency N18.9 [facility] [id number] [place] [address] 2546 Nov, Other chronic pain G89.29 [facility] [id number] [place] [address] 2546 Nov, Type 2 diabetes mellitus with unspecified complications E11.8 [facility] [address] [facility] [id number] [place] [address]- 7206 October, [facility] [id number] [place] [address] 0336 October, [facility] [address] [place] [address] 9791 October, Type 2 diabetes mellitus with unspecified complications E11.8 [facility] [id number] [address] 6994 October, [facility] [id number] [place] [address]- 9228 October, [facility] [id number] [address]- 6090 October, Type 2 diabetes mellitus with unspecified complications E11.8 [facility] [id number], [place] [address]- 4446 October, [facility] [id number], [place] [address] 2546 October, [facility] [id number] [address]- 1750 October, Type 2 diabetes mellitus with unspecified complications E11.8 [facility] [id number] [place] [address] 2549 October, Type 2 diabetes mellitus with unspecified complications E11.8 ; Essential hypertension I10 ; Chronic renal insufficiency N18.9 ; BMI 40.0-44.9, adult Z68.41 ; Other chronic pain G89.29 ; Anxiety associated with depression F41.8 and Right medial knee pain M25.561 [address] [place] [address] 33187- 4866 October, GERD (gastroesophageal reflux disease) K21.9 and Anxiety associated with depression F41.8 [place] [address] 86453- 5303 October, Anxiety associated with depression F41.8 [address] [address] 39393- 1233 Sep, [place] [address] 83279- 9205 Sep, GERD (gastroesophageal reflux disease) K21.9 and Anxiety associated with depression F41.8 [place] [address] 35792- 9698 Aug, [address] [address] 60675- 4332 Aug, [facility] [address] [address]25 -[address]48 Aug, Acute recurrent maxillary sinusitis J01.01 [address] [place] [address] 62096- 0019 Aug, [place] [address] 79407- 0372 Aug, GERD (gastroesophageal reflux disease) K21.9 and Other chronic pain G89.29 [address] [address] 15439- 7239 Aug, [facility] [address] [address] -[address] Aug, [address] [place] [address] 18004- 1869 Aug, Controlled substance agreement signed Z79.899 ; [...] and Enlarged lymph nodes in armpit R59.0 [address] [address] 18815- 5697 Aug, Anxiety associated with depression F41.8 and GERD ( gastroesophageal reflux disease) K21.9 [place] [address] 58017- 9270 Jul, Controlled substance agreement signed Z79.899 [address] [address] 18701- 3827 Jun, Anxiety associated with depression F41.8 and GERD ( gastroesophageal reflux disease) K21.9 [address] [address] 98944- 7004 May, Anxiety associated with depression F41.8 and GERD ( gastroesophageal reflux disease) K21.9 [place] [id number] [place] [address] 56335- 5358 Apr, Mixed hyperlipidemia E78.2 [place] [id number] [place] [address] 75668- 5894 Apr, Anxiety associated with depression F41.8 and GERD ( gastroesophageal reflux disease) K21.9 [place] [id number] [place] [address] 00413- 9411 Apr, [address] [address] 82023- 1817 Apr, Type 2 diabetes mellitus with unspecified complications E11.8 [address] [address] 51105- 4155 Apr, [address] [id number] [place] [address] 07439- 3083 Apr, Type 2 diabetes mellitus with unspecified complications E11.8 [place] [id number] [place] [address] 16537- 1679 Apr, [place] [id number] [place] [address] 22991- 1190 Mar, GERD (gastroesophageal reflux disease) K21.9 and Anxiety associated with depression F41.8 [place] [id number] [place] [address] 88308- 2984 Mar, 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 [place] [id number] [place] [address] 97485- 4921 Mar, Essential hypertension I10 ; Anxiety associated with depression F41.8 ; COPD (chronic obstructive pulmonary disease) J44.9 ; Mixed hyperlipidemia E78.2 ; Vitamin D deficiency E55.9 ; GERD (gastroesophageal reflux disease) K21.9 ; Type 2 diabetes mellitus with unspecified complications E11.8 ; Other chronic pain G89.29 and Chronic renal insufficiency N18.9 [place] [id number] [place] [address] 57526- 0064 Mar, Chronic renal insufficiency N18.9 [place] [id number] [place] [address] 85341- 9245 Feb, GERD (gastroesophageal reflux disease) K21.9 and Type 2 diabetes mellitus with unspecified complications E11.8 [place] [id number] [place] [address] 84190- 6807 Feb, Anxiety associated with depression F41.8 and Tear of left supraspinatus tendon, subsequent encounter S46.812D [address] [id number] [place] [address] 72131- 6313 Jan, Pre-operative examination for internal medicine Z01.818 [address] [place] 63632- 0380 Jan, Anxiety associated with depression F41.8 and Left anterior shoulder pain M25.512 [address] [id number] [place] [address] 38652- 3142 Jan, [place] [id number] [place] [address] 67777- 7646 Jan, [place] [id number] [place] [address] 02217- 5279 Jan, Type 2 diabetes mellitus with unspecified complications E11.8 ; Essential hypertension I10 ; Other chronic pain G89.29 ; GERD ( gastroesophageal reflux disease) K21.9 ; Anxiety associated with depression F41.8 ; Insomnia G47.00 ; Hypertriglyceridemia E78.1 ; Left anterior shoulder pain M25.512 and Tobacco abuse Z72.0 [id number] [place] [address] 92789- 1268 Dec, Anxiety associated with depression F41.8 and Tear of left supraspinatus tendon, subsequent encounter S46.812D [place] [id number] [place] [address] 45051- 6780 Nov, [id number] [place] [address] 66805- 4026 Nov, Anxiety associated with depression F41.8 and Tear of left supraspinatus tendon, subsequent encounter S46.812D [id number] [place] [address] 65122- 6055 Nov, Abnormal lung sounds R09.89 and COPD (chronic obstructive pulmonary disease) with acute bronchitis J44.0 [id number] [place] [address] 77416- 5647 Nov, [id number] [place] [address] 88590- 2757 October, COPD (chronic obstructive pulmonary disease) with acute bronchitis J44.0 ; Abnormal lung sounds R09.89 and Medication refill Z76.[id number] [place] [address] 25175- 5474 October, Anxiety associated with depression F41.8 [place] [id number] [place] [address] 77396- 4440 Sep, Nausea and vomiting, unspecified intactability, vomiting of unspecified type R11.2 [address] [place] [id number] [place] [address] 37445- 2456 Sep, COPD (chronic obstructive pulmonary disease) J44.9 ; Tobacco abuse Z72.0 ; Tear of left supraspinatus tendon, subsequent encounter S46.812D and Type 2 diabetes mellitus with unspecified complications E11.8 [address] [place] [id number] [place] [address] 26229- 8132 Sep, [address] [id number] [place] [address] 31495- 9028 Aug, Left anterior shoulder pain M25.512 [address] [id number] [place] [address] 25852- 6257 Aug, Left anterior shoulder pain M25.512 and Low back pain M54.5 [address] [id number] [place] [address] 87904- 0510 Aug, [place] [id number] [place] [address] 58694- 8697 Aug, [address] [id number] [place] [address] 34133- 3905 Aug, [address] [id number] [place] [address] 42408- 9486 Aug, [address] [id number] [place] [address] 27536- 6319 Aug, Type 2 diabetes mellitus with unspecified complications E11.8 [place] [id number] [place] [address] 45521- 9308 Aug, Type 2 diabetes mellitus with unspecified [...] E55.9 and GERD (gastroesophageal reflux disease) K21.9 [address] [place] [id number] [place] [address] 24238- 1514 Aug, [address] [id number] [place] [address] 09775- 4810 May, [address] [id number] [place] [address] 32229- 5671 Apr, [address] [id number] [place] [address] 96015- 0001 Apr, Type 2 diabetes mellitus with unspecified [...] S49.92XA and Anxiety associated with depression F41.8 [address] [place] [address] [address] 63292- 3893 Apr, [address] [id number] [place] [address] 18610- 9714 Apr, [address] [place] [id number] [place] [address] 09109- 1935 Apr, [address] [id number] [place] [address] 67376- 0379 Mar, [address] [place], [place] [address]- 2102 Feb, [address] [place], [place] [address]- 6077 Feb, [place] [id number] [place] [address] 47610- 3678 Jan, [address] [id number] [place] [address] 98906- 5542 Jan, [address] [id number] [place] [address] 02551- 4674 Jan, Type 2 diabetes mellitus with unspecified complications E11.8 ; Essential hypertension I10 and Vitamin D deficiency E55.9 [place] [id number] [place] [address] 12925- 7841 Dec, Type 2 diabetes mellitus with unspecified complications E11.8 ; Essential hypertension I10 ; Other chronic pain G89.29 ; Anxiety associated with depression F41.8 ; Bronchitis J40 ; Vitamin D deficiency E55.9 and COPD (chronic obstructive pulmonary disease) J44.9 [place] [id number] [place] [address] 87507- 7877 Nov, [place] [id number] [place] [address] 14349- 0182 October, [place] [id number] [place] [address] 98560- 4488 October, [place] [id number] [place] [address] 95500- 2239 October, [place] [id number] [place] [address] 21910- 2115 October, Dysuria R30.0 ; Bronchitis J40 ; Anxiety associated with depression F41.8 and Type 2 diabetes mellitus with unspecified complications E11.8 [place] [id number] [place] [address] 18511- 3451 October, Chronic renal insufficiency N18.9 ; Elevated white blood cell count D72.829 and Frequent UTI N39.0 [place] [id number] [place] [address] 03457- 7364 October, Chronic renal insufficiency N18.9 ; Elevated white blood cell count D72.829 and Frequent UTI N39.0 [place] [address] [address] 91238- 9185 October, [place] [id number] [place] [address] 21677- 2965 Sep, Type 2 diabetes mellitus with unspecified complications E11.8 ; Essential hypertension I10 ; COPD (chronic obstructive pulmonary disease ) J44.9 and Hospital discharge follow-up Z09 [place] [id number] [place] [address] 39030- 0007 Sep, [place] [id number] [place] [address] 50771- 7432 Sep, Dyspnea R06.00 ; Other chronic pain G89.29 ; Dysuria R30.0 ; Diaphoresis R61 ; Jaundice R17 ; COPD (chronic obstructive pulmonary disease) J44.9 ; Type 2 diabetes mellitus with unspecified complications E11.8 ; Excessive daytime sleepiness G47.19 and Oliguria R34 [place] [address] [place] [address] 69075- 0189 Sep, [place] [address] [place] [address] 70742- 2811 Sep, Essential hypertension I10 ; Anxiety associated with depression F41.8 ; Mixed hyperlipidemia E78.2 ; Dyspnea R06.00 ; Shortness of breath R06.02 and Chest pain, unspecified R07.9 [place] [address] [place] [address] 37881- 2339 Sep, Chest pain R07.9 ; Hyperlipemia E78.5 ; Type 2 diabetes mellitus with unspecified complications E11.8 ; Essential hypertension I10 ; Other chronic pain G89.29 ; Anxiety associated with depression F41.8 ; COPD ( chronic obstructive pulmonary disease) J44.9 ; Low vitamin D level E55.9 ; Tobacco abuse Z72.0 ; Hypertriglyceridemia E78.1 and Abnormal laboratory test R89.9 [place] [address] [place] [address] 91075- 0669 Aug, Pneumonia J18.9 ; Hypertriglyceridemia E78.1 ; COPD ( chronic obstructive pulmonary disease) J44.9 and Hyperlipidemia E78.5 [place] [id number] [place] [address] 88843- 7806 Aug, Shortness of breath R06.02 ; Anxiety associated with depression F41.8 and Chest pain, unspecified R07.9 [id number] [place] [address] 95105- 5283 Jul, [place] [id number] [place] [address] 29611- 9251 Jun, Anxiety associated with depression F41.8 ; [...] unspecified type R11.2 and Tobacco abuse Z72.0 [place] [id number] [place] [address] 42649- 6532 May, Hyperlipemia E78.5 [place] [id number] [place] [address] 10147- 8436 May, [place] [id number] [place] [address] 77704- 0502 May, Type 2 diabetes mellitus with unspecified complications E11.8 [place] [id number] [place] [address] 45235- 1413 May, [place] [id number] [place] [address] 95354- 1376 May, Anxiety associated with depression F41.8 ; Type 2 diabetes mellitus with unspecified complications E11.8 ; Essential hypertension I10 ; Peripheral neuropathy G62.9 ; Low back pain M54.5 ; Other chronic pain G89.29 ; GERD (gastroesophageal reflux disease) K21.9 ; Insomnia G47.00 ; COPD (chronic obstructive pulmonary disease) J44.9 ; URI (upper respiratory infection) J06.9 and Depression F32.9 [place] [id number] [place] [address] 38202- 7722 May, Low back pain M54.5 ; Anxiety about health F41.8 ; Generalized anxiety disorder F41.1 and Acute stress reaction F43.[address] 50656- 7491 May, [address] 82296- 0667 Apr, Diabetes E11.9 ; Type 2 diabetes mellitus with unspecified complications E11.8 ; Essential hypertension I10 ; Peripheral neuropathy G62.9 ; Low back pain M54.5 ; Other chronic pain G89.29 ; GERD (gastroesophageal reflux disease) K21.9 ; Anxiety associated with depression F41.8 ; Muscle spasm of calf M62.831 ; Insomnia G47.00 and COPD (chronic obstructive pulmonary disease) J44.[address] 33692- 3036 May, [place] [id number] [place] [address] 57585- 8628 May, IMMUNIZATIONS No Known Immunizations SOCIAL HISTORY [...]
--- OUTSIDE RECORDS SUMMARY | 2018-02-19 16:58 | XMS REPORT ---
Author Author KATIE JEFFRIES Organization [facility] Address [address] [place] [address] Care Team Providers Care Microbiology Technologist Name Role Phone MERVIN KATIE Unavailable PROBLEMS Type Condition ICD9-CM Code MMS41-TP Code Onset Dates Condition Status SNOMED Code Problem Other chronic pain G89.29 Active 64997991 Problem Insomnia G47.00 Active 615804791 Problem Type 2 diabetes mellitus with unspecified complications E11.8 Active 86967236 Problem Constipation by delayed colonic transit K59.01 Active 19413555 Problem Chronic kidney disease (CKD) stage G3b/A1, moderately decreased glomerular filtration rate (GFR) between 30-44 mL/min/1.73 square meter and albuminuria creatinine ratio less than 30 mg/g N18.3 Active 668538863 Problem Mixed hyperlipidemia E78.2 Active 265848022 Problem Controlled substance agreement signed Z79.899 Active 444207180 Problem 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 Active 56427774 Problem Vitamin D deficiency E55.9 Active 37730760 Problem Peripheral neuropathy G62.9 Active 97938070 Problem Essential hypertension I10 Active 48442800 Problem Osteoarthritis of acromioclavicular joint M19.019 Active 078308201 Problem COPD (chronic obstructive pulmonary disease) J44.9 Active 84568295 Problem Anxiety associated with depression F41.8 Active 599002893 Problem GERD (gastroesophageal reflux disease) K21.9 Active 842847560 ALLERGIES No Information ENCOUNTERS Encounter Location Date Diagnosis [facility] [id number], [place] [address] Jan, [facility] [address], [place] [address] Jan, Other chronic pain G89.29 and Anxiety associated with depression F41.8 [facility] [id number] [place] [address] 34880- 4904 Jan, [facility] [id number] [place] [address] 24241- 4345 Dec, [facility] [id number] [place] [address] 91954- 4019 Dec, Type 2 diabetes mellitus with unspecified [...] and 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 [place] [id number] [place] [address] 46110- 3472 Dec, [place] [id number] [place] [address] 56044- 3127 Dec, Type 2 diabetes mellitus with unspecified complications E11.8 [facility] [id number] [place] [address] 95369- 9403 Dec, [facility] [id number] [place] [address] 32042- 5710 Dec, Type 2 diabetes mellitus with unspecified complications E11.8 [facility] [id number] [place] [address] 83198- 2901 Dec, Type 2 diabetes mellitus with unspecified complications E11.8 [facility] [id number] [place] [address] 85960- 0319 Dec, [facility] [id number] [place] [address] 03576- 4071 Dec, Type 2 diabetes mellitus with unspecified complications E11.8 [facility] [id number] [place] [address] 70810- 7404 Dec, [facility] [id number] [address] 8184 Dec, [facility] [address] [facility] [id number], [place] [address] 74[address] Dec, [facility] [id number], [place] [address] 8746 Dec, [facility] [address], [place] [address] 9318 Dec, [facility] [id number], [place] [address] 1409 Dec, Other chronic pain G89.29 and Anxiety associated with depression F41.8 [facility] [id number], [place] [address] 1651 Dec, Type 2 diabetes mellitus with unspecified complications E11.8 [facility] [address], [place] [address] 3926 Nov, [facility] [address], [place] [address] 7719 Nov, [facility] [address], [place] [address] 6191 Nov, [facility] [id number], [place] [address] 1194 Nov, [facility] [id number], [place] [address] 9976 Nov, Type 2 diabetes mellitus with unspecified complications E11.8 [facility] [address] [facility] [id number], [place] [address] 6794 Nov, [facility] [id number], [place] [address] 9008 Nov, Type 2 diabetes mellitus with unspecified complications E11.8 [facility] [id number], [place] [address] 0507 Nov, Other chronic pain G89.29 and Anxiety associated with depression F41.8 [facility] [address] [facility] [id number] [place] [address] 2546 08 Nov, 2017 Chronic renal insufficiency N18.9 [facility] [address] [address] 2546 Nov, Other chronic pain G89.29 [facility] [address] [address] 2546 Nov, Type 2 diabetes mellitus with unspecified complications E11.8 [facility] [address] [facility] [id number] [place] [address] 7156 October, [facility] [address] [address] 1996 October, [facility] [address] [address] 4890 October, Type 2 diabetes mellitus with unspecified complications E11.8 [facility] [address], [place] [address] 6097 October, [facility] [address] [address]- 8565 October, [facility] [address], [place] [address] 2331 October, Type 2 diabetes mellitus with unspecified complications E11.8 [facility] [address], [place] [address]- 2536 October, [facility] [id number], [place] [address]- 2546 October, [facility] [id number], [place] [address] 0165 October, Type 2 diabetes mellitus with unspecified complications E11.8 [facility] [id number] [address] 2542 October, Type 2 diabetes mellitus with unspecified complications E11.8 ; Essential hypertension I10 ; Chronic renal insufficiency N18.9 ; BMI 40.0-44.9, adult Z68.41 ; Other chronic pain G89.29 ; Anxiety associated with depression F41.8 and Right medial knee pain M25.561 [place] [address] [address]60- 7012 October, GERD (gastroesophageal reflux disease) K21.9 and Anxiety associated with depression F41.8 [place] [address] 47034- 6912 October, Anxiety associated with depression F41.8 [place] [address] 63372- 3216 Sep, [place] [address] 58892- 0151 Sep, GERD (gastroesophageal reflux disease) K21.9 and Anxiety associated with depression F41.8 [place] [address] [address]6031- 6072 Aug, [place] [address] 15718- 1277 Aug, [facility] [address] 00[address] -7334 Aug, Acute recurrent maxillary sinusitis J01.01 [place] [address] 19418- 7752 Aug, [place] [address] 60633- 4397 Aug, GERD (gastroesophageal reflux disease) K21.9 and Other chronic pain G89.29 [place] [address] 41833- 1433 Aug, [facility] [address] 65715 -8502 Aug, [place] [address] 06778- 4446 Aug, Controlled substance agreement signed Z79.899 ; [...] and Enlarged lymph nodes in armpit R59.0 [place] [address] 89731- 3049 Aug, Anxiety associated with depression F41.8 and GERD ( gastroesophageal reflux disease) K21.9 [place] [address] 93465- 9328 Jul, Controlled substance agreement signed Z79.899 [place] [address] 92244- 3481 Jun, Anxiety associated with depression F41.8 and GERD ( gastroesophageal reflux disease) K21.9 [place] [address] 06443- 7525 May, Anxiety associated with depression F41.8 and GERD ( gastroesophageal reflux disease) K21.9 [place] [id number] [place] [address] 43634- 2953 Apr, Mixed hyperlipidemia E78.2 [place] [id number] [place] [address] 69212- 4931 Apr, Anxiety associated with depression F41.8 and GERD ( gastroesophageal reflux disease) K21.9 [place] [id number] [place] [address] 05315- 8691 Apr, [place] [address] 62773- 2169 Apr, Type 2 diabetes mellitus with unspecified complications E11.8 [place] [address] 37967- 2535 Apr, [place] [id number] [place] [address] 53704- 5448 Apr, Type 2 diabetes mellitus with unspecified complications E11.8 [place] [id number] [place] [address] 09377- 7984 Apr, [place] [id number] [place] [address] 00507- 7139 Mar, GERD (gastroesophageal reflux disease) K21.9 and Anxiety associated with depression F41.8 [place] [id number] [place] [address] 77453- 9714 Mar, 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 [place] [id number] [place] [address] 75640- 2809 Mar, Essential hypertension I10 ; Anxiety associated with depression F41.8 ; COPD (chronic obstructive pulmonary disease) J44.9 ; Mixed hyperlipidemia E78.2 ; Vitamin D deficiency E55.9 ; GERD (gastroesophageal reflux disease) K21.9 ; Type 2 diabetes mellitus with unspecified complications E11.8 ; Other chronic pain G89.29 and Chronic renal insufficiency N18.9 [place] [id number] [place] [address] 01093- 6087 Mar, Chronic renal insufficiency N18.9 [place] [id number] [place] [address] 30445- 1993 Feb, GERD (gastroesophageal reflux disease) K21.9 and Type 2 diabetes mellitus with unspecified complications E11.8 [place] [id number] [place] [address] 56725- 2842 Feb, Anxiety associated with depression F41.8 and Tear of left supraspinatus tendon, subsequent encounter S46.812D [place] [id number] [place] [address] 41184- 2110 Jan, Pre-operative examination for internal medicine Z01.818 [place] [address] 13282- 6770 Jan, Anxiety associated with depression F41.8 and Left anterior shoulder pain M25.512 [place] [id number] [place] [address] 02548- 9496 Jan, [place] [id number] [place] [address] 54630- 4206 Jan, [place] [id number] [place] [address] 95502- 6887 Jan, Type 2 diabetes mellitus with unspecified complications E11.8 ; Essential hypertension I10 ; Other chronic pain G89.29 ; GERD ( gastroesophageal reflux disease) K21.9 ; Anxiety associated with depression F41.8 ; Insomnia G47.00 ; Hypertriglyceridemia E78.1 ; Left anterior shoulder pain M25.512 and Tobacco abuse Z72.0 [id number] [place] [address] 63578- 7885 Dec, Anxiety associated with depression F41.8 and Tear of left supraspinatus tendon, subsequent encounter S46.812D [place] [id number] [place] [address] 79634- 4714 Nov, [address] [place] [id number] [place] [address] 07577- 4165 Nov, Anxiety associated with depression F41.8 and Tear of left supraspinatus tendon, subsequent encounter S46.812D [address] [id number] [place] [address] 02032- 7262 Nov, Abnormal lung sounds R09.89 and COPD (chronic obstructive pulmonary disease) with acute bronchitis J44.0 [id number] [place] [address] 58429- 1364 Nov, [address] [id number] [place] [address] 84375- 3440 October, COPD (chronic obstructive pulmonary disease) with acute bronchitis J44.0 ; Abnormal lung sounds R09.89 and Medication refill Z76.[id number] [place] [address] 55875- 5186 October, Anxiety associated with depression F41.8 [place] [id number] [place] [address] 97331- 6210 Sep, Nausea and vomiting, unspecified intactability, vomiting of unspecified type R11.2 [place] [id number] [place] [address] 88303- 7721 Sep, COPD (chronic obstructive pulmonary disease) J44.9 ; Tobacco abuse Z72.0 ; Tear of left supraspinatus tendon, subsequent encounter S46.812D and Type 2 diabetes mellitus with unspecified complications E11.8 [place] [id number] [place] [address] 35321- 2162 Sep, [place] [id number] [place] [address] 32305- 3167 Aug, Left anterior shoulder pain M25.512 [place] [id number] [place] [address] 38685- 2422 Aug, Left anterior shoulder pain M25.512 and Low back pain M54.5 [place] [id number] [place] [address] 82716- 1181 Aug, [place] [id number] [place] [address] 88150- 4992 Aug, [place] [id number] [place] [address] 97813- 7584 Aug, [place] [id number] [place] [address] 31429- 2409 Aug, [place] [id number] [place] [address] 74442- 2073 Aug, Type 2 diabetes mellitus with unspecified complications E11.8 [place] [id number] [place] [address] 24388- 7154 Aug, Type 2 diabetes mellitus with unspecified [...] E55.9 and GERD (gastroesophageal reflux disease) K21.9 [place] [id number] [place] [address] 97969- 2840 Aug, [place] [id number] [place] [address] 78893- 5757 May, [place] [id number] [place] [address] 43154- 9265 Apr, [place] [id number] [place] [address] 49028- 9380 Apr, Type 2 diabetes mellitus with unspecified [...] S49.92XA and Anxiety associated with depression F41.8 [place] [id number] [place] [address] 71751- 3925 Apr, [place] [id number] [place] [address] 21732- 8067 Apr, [place] [id number] [place] [address] 73346- 2245 Apr, [place] [id number] [place] [address] 87706- 0464 Mar, [place] [address], [place] [address]- 2246 Feb, [place] [address], [place] [address]- 9820 Feb, [place] [id number] [place] [address] 37918- 1361 Jan, [place] [id number] [place] [address] 62462- 7826 Jan, [place] [id number] [place] [address] 88278- 0995 Jan, Type 2 diabetes mellitus with unspecified complications E11.8 ; Essential hypertension I10 and Vitamin D deficiency E55.9 [place] [id number] [place] [address] 25419- 2096 Dec, Type 2 diabetes mellitus with unspecified complications E11.8 ; Essential hypertension I10 ; Other chronic pain G89.29 ; Anxiety associated with depression F41.8 ; Bronchitis J40 ; Vitamin D deficiency E55.9 and COPD (chronic obstructive pulmonary disease) J44.9 [place] [id number] [place] [address] 15122- 0056 Nov, [place] [id number] [place] [address] 80429- 1778 October, [place] [id number] [place] [address] 88516- 4903 October, [place] [id number] [place] [address] 63823- 8301 October, [place] [id number] [place] [address] 85429- 9269 October, Dysuria R30.0 ; Bronchitis J40 ; Anxiety associated with depression F41.8 and Type 2 diabetes mellitus with unspecified complications E11.8 [place] [id number] [place] [address] 82114- 2384 October, Chronic renal insufficiency N18.9 ; Elevated white blood cell count D72.829 and Frequent UTI N39.0 [place] [id number] [place] [address] 80606- 2080 October, Chronic renal insufficiency N18.9 ; Elevated white blood cell count D72.829 and Frequent UTI N39.0 [place] [address] [place] [address] 64564- 3154 October, [place] [id number] [place] [address] 26993- 5933 Sep, Type 2 diabetes mellitus with unspecified complications E11.8 ; Essential hypertension I10 ; COPD (chronic obstructive pulmonary disease ) J44.9 and Hospital discharge follow-up Z09 [place] [id number] [place] [address] 30185- 1524 Sep, [place] [id number] [place] [address] 00966- 5427 Sep, Dyspnea R06.00 ; Other chronic pain G89.29 ; Dysuria R30.0 ; Diaphoresis R61 ; Jaundice R17 ; COPD (chronic obstructive pulmonary disease) J44.9 ; Type 2 diabetes mellitus with unspecified complications E11.8 ; Excessive daytime sleepiness G47.19 and Oliguria R34 [place] [id number] [place] [address] 55955- 7991 Sep, [place] [id number] [place] [address] 03673- 5709 Sep, Essential hypertension I10 ; Anxiety associated with depression F41.8 ; Mixed hyperlipidemia E78.2 ; Dyspnea R06.00 ; Shortness of breath R06.02 and Chest pain, unspecified R07.9 [place] [id number] [place] [address] 46921- 6749 Sep, Chest pain R07.9 ; Hyperlipemia E78.5 ; Type 2 diabetes mellitus with unspecified complications E11.8 ; Essential hypertension I10 ; Other chronic pain G89.29 ; Anxiety associated with depression F41.8 ; COPD ( chronic obstructive pulmonary disease) J44.9 ; Low vitamin D level E55.9 ; Tobacco abuse Z72.0 ; Hypertriglyceridemia E78.1 and Abnormal laboratory test R89.9 [place] [id number] [place] [address] 36102- 9253 Aug, Pneumonia J18.9 ; Hypertriglyceridemia E78.1 ; COPD ( chronic obstructive pulmonary disease) J44.9 and Hyperlipidemia E78.5 [place] [id number] [place] [address] 11835- 2733 Aug, Shortness of breath R06.02 ; Anxiety associated with depression F41.8 and Chest pain, unspecified R07.9 [place] [id number] [place] [address] 90142- 7803 Jul, [place] [id number] [place] [address] 08069- 1220 Jun, Anxiety associated with depression F41.8 ; [...] unspecified type R11.2 and Tobacco abuse Z72.0 [place] [id number] [place] [address] 67183- 1322 May, Hyperlipemia E78.5 [place] [id number] [place] [address] 73446- 3828 May, [place] [id number] [place] [address] 71767- 5495 May, Type 2 diabetes mellitus with unspecified complications E11.8 [place] [id number] [place] [address] 80391- 9929 May, [place] [id number] [place] [address] 36103- 9179 May, Anxiety associated with depression F41.8 ; Type 2 diabetes mellitus with unspecified complications E11.8 ; Essential hypertension I10 ; Peripheral neuropathy G62.9 ; Low back pain M54.5 ; Other chronic pain G89.29 ; GERD (gastroesophageal reflux disease) K21.9 ; Insomnia G47.00 ; COPD (chronic obstructive pulmonary disease) J44.9 ; URI (upper respiratory infection) J06.9 and Depression F32.9 [place] [id number] [place] [address] 02034- 9289 May, Low back pain M54.5 ; Anxiety about health F41.8 ; Generalized anxiety disorder F41.1 and Acute stress reaction F43.0 [place] [address] 39112- 5332 May, [address] 99782- 9807 Apr, Diabetes E11.9 ; Type 2 diabetes mellitus with unspecified complications E11.8 ; Essential hypertension I10 ; Peripheral neuropathy G62.9 ; Low back pain M54.5 ; Other chronic pain G89.29 ; GERD (gastroesophageal reflux disease) K21.9 ; Anxiety associated with depression F41.8 ; Muscle spasm of calf M62.831 ; Insomnia G47.00 and COPD (chronic obstructive pulmonary disease) J44.9 [place] [id number] [place] [address] 77381- 2351 May, [place] [id number] [place] [address] 96164- 1531 May, IMMUNIZATIONS No Known Immunizations SOCIAL HISTORY Never Assessed REASON FOR VISIT insulin PLAN OF CARE VITAL SIGNS MEDICATIONS Medication Instructions Dosage Frequency Start Date End Date Duration Status Levemir Flexpen 100 UNIT/ML Subcutaneous 2 times a day 25 units twice a day 12h October, 30 days Active NovoLog Flexpen 100 UNIT/ML 15 units three times with meals October, 30 days Active RESULTS No Results [...]
--- OUTSIDE RECORDS SUMMARY | 2018-02-19 16:59 | XMS REPORT ---
Author Author KATIE JEFFRIES Organization [facility] Address [address] [place] [address] Care Team Providers Care Storeroom Attendant Name Role Phone MERVIN KATIE Unavailable PROBLEMS Type Condition ICD9-CM Code UXO30-HH Code Onset Dates Condition Status SNOMED Code Problem Other chronic pain G89.29 Active 36984156 Problem Insomnia G47.00 Active 968354172 Problem Type 2 diabetes mellitus with unspecified complications E11.8 Active 23878248 Problem Constipation by delayed colonic transit K59.01 Active 75783907 Problem Chronic kidney disease (CKD) stage G3b/A1, moderately decreased glomerular filtration rate (GFR) between 30-44 mL/min/1.73 square meter and albuminuria creatinine ratio less than 30 mg/g N18.3 Active 647947061 Problem Mixed hyperlipidemia E78.2 Active 398850519 Problem Controlled substance agreement signed Z79.899 Active 207106343 Problem 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 Active 24915545 Problem Vitamin D deficiency E55.9 Active 73816956 Problem Peripheral neuropathy G62.9 Active 76366147 Problem Essential hypertension I10 Active 56717865 Problem Osteoarthritis of acromioclavicular joint M19.019 Active 446719660 Problem COPD (chronic obstructive pulmonary disease) J44.9 Active 62891711 Problem Anxiety associated with depression F41.8 Active 899067509 Problem GERD (gastroesophageal reflux disease) K21.9 Active 353540608 ALLERGIES No Information ENCOUNTERS Encounter Location Date Diagnosis [facility] [id number] [address] Jan, [facility] [address] [address] Jan, Other chronic pain G89.29 and Anxiety associated with depression F41.8 [facility] [id number] [place] [address] 12591- 9487 Jan, [facility] [id number] [place] [address] 61235- 8329 Dec, [facility] [id number] [place] [address] 21301- 8473 Dec, Type 2 diabetes mellitus with unspecified [...] and 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 [facility] [id number] [place] [address] 74067- 4119 Dec, [facility] [id number] [place] [address] 38576- 4577 Dec, Type 2 diabetes mellitus with unspecified complications E11.8 [facility] [id number] [place] [address] 55049- 7311 Dec, [facility] [id number] [place] [address] 60796- 5643 Dec, Type 2 diabetes mellitus with unspecified complications E11.8 [facility] [id number] [place] [address] 20775- 1479 Dec, Type 2 diabetes mellitus with unspecified complications E11.8 [facility] [id number] [place] [address] 55218- 2370 Dec, [facility] [id number] [place] [address] 16581- 1214 Dec, Type 2 diabetes mellitus with unspecified complications E11.8 [facility] [id number] [place] [address] 43112- 6682 Dec, [facility] [id number] [address] 9070 Dec, [facility] [address] [facility] [id number] [address] 9[address] Dec, [facility] [id number] [address] 6926 Dec, [facility] [address] [address] 4455 Dec, [facility] [id number] [address] 4095 Dec, Other chronic pain G89.29 and Anxiety associated with depression F41.8 [facility] [id number] [address] 1669 Dec, Type 2 diabetes mellitus with unspecified complications E11.8 [facility] [address] [address] 2011 Nov, [facility] [address] [address] 7174 Nov, [facility] [address] [address] 0112 Nov, [facility] [id number] [address] 4293 Nov, [facility] [id number] [address] 8002 Nov, Type 2 diabetes mellitus with unspecified complications E11.8 [facility] [address] [facility] [id number] [address] 6944 Nov, [facility] [id number] [address] 8382 Nov, Type 2 diabetes mellitus with unspecified complications E11.8 [facility] [id number] [address] 1419 Nov, Other chronic pain G89.29 and Anxiety associated with depression F41.8 [facility] [address] [facility] [id number] [place] [address]46 08 Nov, 2017 Chronic renal insufficiency N18.9 [facility] [address] [address] 2546 Nov, Other chronic pain G89.29 [facility] [address] [address] 2546 Nov, Type 2 diabetes mellitus with unspecified complications E11.8 [facility] [address] [facility] [id number] [place] [address] 1806 October, [facility] [address] [address]- 4886 October, [facility] [address] [address] 9758 October, Type 2 diabetes mellitus with unspecified complications E11.8 [facility] [address] [address] 7747 October, [facility] [address] [address] 7154 October, [facility] [address], [place] [address] 0970 October, Type 2 diabetes mellitus with unspecified complications E11.8 [facility] [address] [address] 7016 October, [facility] [id number] [address] 2546 October, [facility] [id number] [address]- 4727 October, Type 2 diabetes mellitus with unspecified complications E11.8 [facility] [id number] [address] 254 October, Type 2 diabetes mellitus with unspecified complications E11.8 ; Essential hypertension I10 ; Chronic renal insufficiency N18.9 ; BMI 40.0-44.9, adult Z68.41 ; Other chronic pain G89.29 ; Anxiety associated with depression F41.8 and Right medial knee pain M25.561 [place] [address] [address]- [address] October, GERD (gastroesophageal reflux disease) K21.9 and Anxiety associated with depression F41.8 [facility] [address] 50219- 6206 October, Anxiety associated with depression F41.8 [facility] [facility] [address] 41833- 4454 Sep, [facility] [facility] [address] 29150- 3963 Sep, GERD (gastroesophageal reflux disease) K21.9 and Anxiety associated with depression F41.8 [facility] [address] 34822- 7140 Aug, [facility] [address] 36574- 3046 Aug, [facility] [address] [address] -[address]45 Aug, Acute recurrent maxillary sinusitis J01.01 [place] [address] 95440- 6966 Aug, [facility] [address] 73665- 0818 Aug, GERD (gastroesophageal reflux disease) K21.9 and Other chronic pain G89.29 [place] [address] 20598- 8124 Aug, [facility] [address] 21171 -7259 Aug, [place] [address] 28186- 4366 Aug, Controlled substance agreement signed Z79.899 ; [...] and Enlarged lymph nodes in armpit R59.0 [place] [address] 44878- 0948 Aug, Anxiety associated with depression F41.8 and GERD ( gastroesophageal reflux disease) K21.9 [place] [address] 53950- 5523 Jul, Controlled substance agreement signed Z79.899 [place] [address] 00124- 5827 Jun, Anxiety associated with depression F41.8 and GERD ( gastroesophageal reflux disease) K21.9 [place] [address] 57428- 3348 May, Anxiety associated with depression F41.8 and GERD ( gastroesophageal reflux disease) K21.9 [facility] [id number] [place] [address] 70116- 9014 Apr, Mixed hyperlipidemia E78.2 [facility] [id number] [place] [address] 22927- 8038 Apr, Anxiety associated with depression F41.8 and GERD ( gastroesophageal reflux disease) K21.9 [facility] [id number] [place] [address] 15706- 4721 Apr, [facility] [address] 34229- 3685 Apr, Type 2 diabetes mellitus with unspecified complications E11.8 [facility] [address] 64807- 7524 Apr, [facility] [address] [place] [address] 49127- 6347 Apr, Type 2 diabetes mellitus with unspecified complications E11.8 [facility] [id number] [place] [address] 44503- 4367 Apr, [facility] [id number] [place] [address] 17643- 5721 Mar, GERD (gastroesophageal reflux disease) K21.9 and Anxiety associated with depression F41.8 [facility] [id number] [place] [address] 19651- 3054 Mar, 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 [facility] [id number] [place] [address] 87398- 5890 Mar, Essential hypertension I10 ; Anxiety associated with depression F41.8 ; COPD (chronic obstructive pulmonary disease) J44.9 ; Mixed hyperlipidemia E78.2 ; Vitamin D deficiency E55.9 ; GERD (gastroesophageal reflux disease) K21.9 ; Type 2 diabetes mellitus with unspecified complications E11.8 ; Other chronic pain G89.29 and Chronic renal insufficiency N18.9 [facility] [id number] [place] [address] 69564- 3876 Mar, Chronic renal insufficiency N18.9 [facility] [id number] [place] [address] 79128- 6570 Feb, GERD (gastroesophageal reflux disease) K21.9 and Type 2 diabetes mellitus with unspecified complications E11.8 [facility] [id number] [place] [address] 20358- 9121 Feb, Anxiety associated with depression F41.8 and Tear of left supraspinatus tendon, subsequent encounter S46.812D [facility] [id number] [place] [address] 70273- 7444 Jan, Pre-operative examination for internal medicine Z01.818 [place] [address] 92291- 4840 Jan, Anxiety associated with depression F41.8 and Left anterior shoulder pain M25.512 [facility] [id number] [place] [address] 96528- 2403 Jan, [facility] [id number] [place] [address] 24998- 4927 Jan, [facility] [id number] [place] [address] 54662- 4707 Jan, Type 2 diabetes mellitus with unspecified complications E11.8 ; Essential hypertension I10 ; Other chronic pain G89.29 ; GERD ( gastroesophageal reflux disease) K21.9 ; Anxiety associated with depression F41.8 ; Insomnia G47.00 ; Hypertriglyceridemia E78.1 ; Left anterior shoulder pain M25.512 and Tobacco abuse Z72.0 [id number] [place] [address] 69601- 8535 Dec, Anxiety associated with depression F41.8 and Tear of left supraspinatus tendon, subsequent encounter S46.812D [place] [id number] [place] [address] 66901- 5159 Nov, [id number] [place] [address] 92909- 9079 Nov, Anxiety associated with depression F41.8 and Tear of left supraspinatus tendon, subsequent encounter S46.812D [address] [id number] [place] [address] 98789- 0866 Nov, Abnormal lung sounds R09.89 and COPD (chronic obstructive pulmonary disease) with acute bronchitis J44.0 [id number] [place] [address] 93351- 7443 Nov, [address] [id number] [place] [address] 48734- 9175 October, COPD (chronic obstructive pulmonary disease) with acute bronchitis J44.0 ; Abnormal lung sounds R09.89 and Medication refill Z76.[id number] [place] [address] 76533- 4380 October, Anxiety associated with depression F41.8 [facility] [id number] [place] [address] 70126- 7953 Sep, Nausea and vomiting, unspecified intactability, vomiting of unspecified type R11.2 [facility] [id number] [place] [address] 41001- 5275 Sep, COPD (chronic obstructive pulmonary disease) J44.9 ; Tobacco abuse Z72.0 ; Tear of left supraspinatus tendon, subsequent encounter S46.812D and Type 2 diabetes mellitus with unspecified complications E11.8 [facility] [id number] [place] [address] 22507- 5854 Sep, [facility] [id number] [place] [address] 26901- 3749 Aug, Left anterior shoulder pain M25.512 [facility] [id number] [place] [address] 78821- 8364 Aug, Left anterior shoulder pain M25.512 and Low back pain M54.5 [facility] [id number] [place] [address] 78880- 8121 Aug, [facility] [id number] [place] [address] 41710- 1493 Aug, [facility] [id number] [place] [address] 67252- 7155 Aug, [facility] [id number] [place] [address] 85363- 9830 Aug, [facility] [id number] [place] [address] 35538- 1980 Aug, Type 2 diabetes mellitus with unspecified complications E11.8 [facility] [id number] [place] [address] 18720- 5626 Aug, Type 2 diabetes mellitus with unspecified [...] E55.9 and GERD (gastroesophageal reflux disease) K21.9 [facility] [id number] [place] [address] 34121- 9601 Aug, [facility] [id number] [place] [address] 08525- 2270 May, [facility] [id number] [place] [address] 88616- 9152 Apr, [facility] [id number] [place] [address] 80589- 8022 Apr, Type 2 diabetes mellitus with unspecified [...] S49.92XA and Anxiety associated with depression F41.8 [facility] [address] [place] [address] 39022- 9661 Apr, [facility] [place] [id number] [place] [address] 00135- 1990 Apr, [facility] [id number] [place] [address] 65087- 1339 Apr, [facility] [id number] [place] [address] 83988- 7943 Mar, [facility] [address] [address]- 9774 Feb, [place] [address], [place] [address]- 0752 Feb, [facility] [id number] [place] [address] 69422- 5622 Jan, [facility] [id number] [place] [address] 82510- 0541 Jan, [facility] [id number] [place] [address] 19079- 2283 Jan, Type 2 diabetes mellitus with unspecified complications E11.8 ; Essential hypertension I10 and Vitamin D deficiency E55.9 [facility] [id number] [place] [address] 34786- 5092 Dec, Type 2 diabetes mellitus with unspecified complications E11.8 ; Essential hypertension I10 ; Other chronic pain G89.29 ; Anxiety associated with depression F41.8 ; Bronchitis J40 ; Vitamin D deficiency E55.9 and COPD (chronic obstructive pulmonary disease) J44.9 [facility] [id number] [place] [address] 93943- 9523 Nov, [facility] [id number] [place] [address] 15303- 5293 October, [facility] [id number] [place] [address] 87974- 4250 October, [facility] [id number] [place] [address] 90004- 2386 October, [facility] [id number] [place] [address] 47514- 1655 October, Dysuria R30.0 ; Bronchitis J40 ; Anxiety associated with depression F41.8 and Type 2 diabetes mellitus with unspecified complications E11.8 [facility] [id number] [place] [address] 44958- 8690 October, Chronic renal insufficiency N18.9 ; Elevated white blood cell count D72.829 and Frequent UTI N39.0 [facility] [place] [id number] [place] [address] 39300- 2212 October, Chronic renal insufficiency N18.9 ; Elevated white blood cell count D72.829 and Frequent UTI N39.0 [facility] [address] [place] [address] 22653- 9252 October, [facility] [place] [id number] [place] [address] 18073- 6840 Sep, Type 2 diabetes mellitus with unspecified complications E11.8 ; Essential hypertension I10 ; COPD (chronic obstructive pulmonary disease ) J44.9 and Hospital discharge follow-up Z09 [place] [id number] [place] [address] 25149- 7866 Sep, [facility] [place] [id number] [place] [address] 54402- 6545 Sep, Dyspnea R06.00 ; Other chronic pain G89.29 ; Dysuria R30.0 ; Diaphoresis R61 ; Jaundice R17 ; COPD (chronic obstructive pulmonary disease) J44.9 ; Type 2 diabetes mellitus with unspecified complications E11.8 ; Excessive daytime sleepiness G47.19 and Oliguria R34 [place] [address] [place] [address] 04489- 1978 Sep, [facility] [address] [place] [address] 57845- 6954 Sep, Essential hypertension I10 ; Anxiety associated with depression F41.8 ; Mixed hyperlipidemia E78.2 ; Dyspnea R06.00 ; Shortness of breath R06.02 and Chest pain, unspecified R07.9 [place] [address] [place] [address] 13478- 1082 Sep, Chest pain R07.9 ; Hyperlipemia E78.5 ; Type 2 diabetes mellitus with unspecified complications E11.8 ; Essential hypertension I10 ; Other chronic pain G89.29 ; Anxiety associated with depression F41.8 ; COPD ( chronic obstructive pulmonary disease) J44.9 ; Low vitamin D level E55.9 ; Tobacco abuse Z72.0 ; Hypertriglyceridemia E78.1 and Abnormal laboratory test R89.9 [place] [address] [place] [address] 11076- 6379 Aug, Pneumonia J18.9 ; Hypertriglyceridemia E78.1 ; COPD ( chronic obstructive pulmonary disease) J44.9 and Hyperlipidemia E78.5 [place] [id number] [place] [address] 30870- 0997 Aug, Shortness of breath R06.02 ; Anxiety associated with depression F41.8 and Chest pain, unspecified R07.9 [place] [id number] [place] [address] 07497- 9694 Jul, [place] [id number] [place] [address] 78397- 0883 Jun, Anxiety associated with depression F41.8 ; [...] unspecified type R11.2 and Tobacco abuse Z72.0 [place] [id number] [place] [address] 99181- 6292 May, Hyperlipemia E78.5 [place] [id number] [place] [address] 07746- 7660 May, [place] [id number] [place] [address] 75854- 8787 May, Type 2 diabetes mellitus with unspecified complications E11.8 [place] [id number] [place] [address] 89428- 2463 May, [place] [id number] [place] [address] 59964- 7304 May, Anxiety associated with depression F41.8 ; Type 2 diabetes mellitus with unspecified complications E11.8 ; Essential hypertension I10 ; Peripheral neuropathy G62.9 ; Low back pain M54.5 ; Other chronic pain G89.29 ; GERD (gastroesophageal reflux disease) K21.9 ; Insomnia G47.00 ; COPD (chronic obstructive pulmonary disease) J44.9 ; URI (upper respiratory infection) J06.9 and Depression F32.9 [place] [id number] [place] [address] 58310- 5687 May, Low back pain M54.5 ; Anxiety about health F41.8 ; Generalized anxiety disorder F41.1 and Acute stress reaction F43.[address] 67352- 9506 May, [address] 72108- 4418 Apr, Diabetes E11.9 ; Type 2 diabetes mellitus with unspecified complications E11.8 ; Essential hypertension I10 ; Peripheral neuropathy G62.9 ; Low back pain M54.5 ; Other chronic pain G89.29 ; GERD (gastroesophageal reflux disease) K21.9 ; Anxiety associated with depression F41.8 ; Muscle spasm of calf M62.831 ; Insomnia G47.00 and COPD (chronic obstructive pulmonary disease) J44.[address] 49926- 5131 May, [place] [id number] [place] [address] 48660- 0000 May, IMMUNIZATIONS No Known Immunizations SOCIAL HISTORY [...]
--- OUTSIDE RECORDS SUMMARY | 2018-02-19 16:59 | XMS REPORT ---
Author Author KATIE JEFFRIES Organization [facility] Address [address] [place] [address] Care Team Providers Care Supervisor [employer] Name Role Phone MERVIN KATIE Unavailable PROBLEMS Type Condition ICD9-CM Code SWV34-PU Code Onset Dates Condition Status SNOMED Code Problem Other chronic pain G89.29 Active 47626796 Problem Insomnia G47.00 Active 603799353 Problem Type 2 diabetes mellitus with unspecified complications E11.8 Active 89095650 Problem Constipation by delayed colonic transit K59.01 Active 40547860 Problem Chronic kidney disease (CKD) stage G3b/A1, moderately decreased glomerular filtration rate (GFR) between 30-44 mL/min/1.73 square meter and albuminuria creatinine ratio less than 30 mg/g N18.3 Active 588546302 Problem Mixed hyperlipidemia E78.2 Active 085411876 Problem Controlled substance agreement signed Z79.899 Active 970868742 Problem 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 Active 42032867 Problem Vitamin D deficiency E55.9 Active 89653009 Problem Peripheral neuropathy G62.9 Active 64334003 Problem Essential hypertension I10 Active 02692208 Problem Osteoarthritis of acromioclavicular joint M19.019 Active 388596035 Problem COPD (chronic obstructive pulmonary disease) J44.9 Active 42573051 Problem Anxiety associated with depression F41.8 Active 359934747 Problem GERD (gastroesophageal reflux disease) K21.9 Active 768435215 ALLERGIES No Information ENCOUNTERS Encounter Location Date Diagnosis [facility] [id number] [address] Jan, [facility] [address], [place] [address] Jan, Other chronic pain G89.29 and Anxiety associated with depression F41.8 [facility] [id number] [place] [address] 71492- 3976 Jan, [facility] [id number] [place] [address] 69359- 8686 Dec, [facility] [id number] [place] [address] 24623- 6992 Dec, Type 2 diabetes mellitus with unspecified [...] and 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 [place] [id number] [place] [address] 68420- 9738 Dec, [place] [facility] [id number] [place] [address] 54897- 5799 Dec, Type 2 diabetes mellitus with unspecified complications E11.8 [facility] [id number] [place] [address] 10192- 8619 Dec, [facility] [id number] [place] [address] 03709- 4047 Dec, Type 2 diabetes mellitus with unspecified complications E11.8 [facility] [id number] [place] [address] 27630- 2144 Dec, Type 2 diabetes mellitus with unspecified complications E11.8 [facility] [id number] [place] [address] 85183- 3571 Dec, [facility] [id number] [place] [address] 20269- 9695 Dec, Type 2 diabetes mellitus with unspecified complications E11.8 [facility] [id number] [place] [address] 12961- 1337 Dec, [facility] [id number] [address] 9145 Dec, [facility] [address] [facility] [id number] [address] 3[address] Dec, [facility] [id number] [address] 7976 Dec, [facility] [address], [place] [address] Dec, [facility] [id number] [address] 1480 Dec, Other chronic pain G89.29 and Anxiety associated with depression F41.8 [facility] [id number] [address] 5224 Dec, Type 2 diabetes mellitus with unspecified complications E11.8 [facility] [address], [place] [address] 5132 Nov, [facility] [address], [place] [address] 7540 Nov, [facility] [address] [address] 0244 Nov, [facility] [id number] [address]- 6645 Nov, [facility] [id number] [address] 8742 Nov, Type 2 diabetes mellitus with unspecified complications E11.8 [facility] [address] [facility] [id number] [address] 0[address] Nov, [facility] [id number] [address]- 7129 Nov, Type 2 diabetes mellitus with unspecified complications E11.8 [facility] [id number] [address] 3585 Nov, Other chronic pain G89.29 and Anxiety associated with depression F41.8 [facility] [address] [facility] [id number] [place] [address] 2546 08 Nov, 2017 Chronic renal insufficiency N18.9 [facility] [address] [place] [address] 2546 Nov, Other chronic pain G89.29 [facility] [address] [place] [address] 2546 Nov, Type 2 diabetes mellitus with unspecified complications E11.8 [facility] [address] [facility] [id number] [place] [address]- 6716 October, [facility] [address] [place] [address] 0966 October, [facility] [address] [place] [address] 1850 October, Type 2 diabetes mellitus with unspecified complications E11.8 [facility] [address], [place] [address] 3614 October, [facility] [address] [place] [address]- 5300 October, [facility] [address], [place] [address] 8119 October, Type 2 diabetes mellitus with unspecified complications E11.8 [facility] [address] [address] 9806 October, [facility] [id number] [address]- 2546 October, [facility] [id number], [place] [address]- 5174 October, Type 2 diabetes mellitus with unspecified complications E11.8 [facility] [id number] [place] [address]- 2540 October, Type 2 diabetes mellitus with unspecified complications E11.8 ; Essential hypertension I10 ; Chronic renal insufficiency N18.9 ; BMI 40.0-44.9, adult Z68.41 ; Other chronic pain G89.29 ; Anxiety associated with depression F41.8 and Right medial knee pain M25.561 [place] [address] [address]- 1105 October, GERD (gastroesophageal reflux disease) K21.9 and Anxiety associated with depression F41.8 [place] [address] 63247- 5966 October, Anxiety associated with depression F41.8 [place] [address] 03201- 1655 Sep, [place] [address] 50532- 8085 Sep, GERD (gastroesophageal reflux disease) K21.9 and Anxiety associated with depression F41.8 [place] [address] 21404- 3919 Aug, [place] [address] 62390- 2972 Aug, [facility] [address] [address] -[address] Aug, Acute recurrent maxillary sinusitis J01.01 [place] [address] 24067- 7206 Aug, [place] [address] 38427- 0761 Aug, GERD (gastroesophageal reflux disease) K21.9 and Other chronic pain G89.29 [place] [address] 09106- 4364 Aug, [facility] [address] 86[address] -[address]77 Aug, [place] [address] 24923- 0554 Aug, Controlled substance agreement signed Z79.899 ; [...] and Enlarged lymph nodes in armpit R59.0 [place] [address] 72413- 7101 Aug, Anxiety associated with depression F41.8 and GERD ( gastroesophageal reflux disease) K21.9 [place] [address] 30724- 5880 Jul, Controlled substance agreement signed Z79.899 [place] [address] 89385- 9919 Jun, Anxiety associated with depression F41.8 and GERD ( gastroesophageal reflux disease) K21.9 [place] [address] 26757- 0370 May, Anxiety associated with depression F41.8 and GERD ( gastroesophageal reflux disease) K21.9 [place] [id number] [place] [address] 88279- 7805 Apr, Mixed hyperlipidemia E78.2 [place] [id number] [place] [address] 55480- 3126 Apr, Anxiety associated with depression F41.8 and GERD ( gastroesophageal reflux disease) K21.9 [place] [id number] [place] [address] 44416- 3681 Apr, [place] [address] 70806- 0101 Apr, Type 2 diabetes mellitus with unspecified complications E11.8 [place] [address] 38423- 4800 Apr, [place] [id number] [place] [address] 75477- 6010 Apr, Type 2 diabetes mellitus with unspecified complications E11.8 [place] [id number] [place] [address] 08240- 9937 Apr, [place] [id number] [place] [address] 91983- 2415 Mar, GERD (gastroesophageal reflux disease) K21.9 and Anxiety associated with depression F41.8 [place] [id number] [place] [address] 90002- 8594 Mar, 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 [place] [id number] [place] [address] 42773- 5274 Mar, Essential hypertension I10 ; Anxiety associated with depression F41.8 ; COPD (chronic obstructive pulmonary disease) J44.9 ; Mixed hyperlipidemia E78.2 ; Vitamin D deficiency E55.9 ; GERD (gastroesophageal reflux disease) K21.9 ; Type 2 diabetes mellitus with unspecified complications E11.8 ; Other chronic pain G89.29 and Chronic renal insufficiency N18.9 [place] [id number] [place] [address] 89438- 2651 Mar, Chronic renal insufficiency N18.9 [place] [id number] [place] [address] 73117- 7007 Feb, GERD (gastroesophageal reflux disease) K21.9 and Type 2 diabetes mellitus with unspecified complications E11.8 [place] [id number] [place] [address] 91533- 3611 Feb, Anxiety associated with depression F41.8 and Tear of left supraspinatus tendon, subsequent encounter S46.812D [place] [id number] [place] [address] 41979- 5696 Jan, Pre-operative examination for internal medicine Z01.818 [place] [address] 28840- 9934 Jan, Anxiety associated with depression F41.8 and Left anterior shoulder pain M25.512 [place] [id number] [place] [address] 70519- 5565 Jan, [place] [id number] [place] [address] 57807- 4323 Jan, [place] [id number] [place] [address] 71761- 3657 Jan, Type 2 diabetes mellitus with unspecified complications E11.8 ; Essential hypertension I10 ; Other chronic pain G89.29 ; GERD ( gastroesophageal reflux disease) K21.9 ; Anxiety associated with depression F41.8 ; Insomnia G47.00 ; Hypertriglyceridemia E78.1 ; Left anterior shoulder pain M25.512 and Tobacco abuse Z72.0 [id number] [place] [address] 62499- 1143 Dec, Anxiety associated with depression F41.8 and Tear of left supraspinatus tendon, subsequent encounter S46.812D [place] [id number] [place] [address] 74255- 4219 Nov, [address] [id number] [place] [address] 55863- 5829 Nov, Anxiety associated with depression F41.8 and Tear of left supraspinatus tendon, subsequent encounter S46.812D [id number] [place] [address] 74832- 3436 Nov, Abnormal lung sounds R09.89 and COPD (chronic obstructive pulmonary disease) with acute bronchitis J44.0 [id number] [place] [address] 09408- 4974 Nov, [address] [id number] [place] [address] 77145- 8799 October, COPD (chronic obstructive pulmonary disease) with acute bronchitis J44.0 ; Abnormal lung sounds R09.89 and Medication refill Z76.[id number] [place] [address] 50043- 6581 October, Anxiety associated with depression F41.8 [place] [id number] [place] [address] 63072- 2425 Sep, Nausea and vomiting, unspecified intactability, vomiting of unspecified type R11.2 [place] [id number] [place] [address] 89431- 9868 Sep, COPD (chronic obstructive pulmonary disease) J44.9 ; Tobacco abuse Z72.0 ; Tear of left supraspinatus tendon, subsequent encounter S46.812D and Type 2 diabetes mellitus with unspecified complications E11.8 [place] [id number] [place] [address] 87696- 7137 Sep, [place] [id number] [place] [address] 69851- 1699 Aug, Left anterior shoulder pain M25.512 [place] [id number] [place] [address] 24663- 6153 Aug, Left anterior shoulder pain M25.512 and Low back pain M54.5 [place] [id number] [place] [address] 31463- 3326 Aug, [place] [id number] [place] [address] 57079- 0774 Aug, [place] [id number] [place] [address] 24560- 6554 Aug, [place] [id number] [place] [address] 14095- 9137 Aug, [place] [id number] [place] [address] 51319- 5928 Aug, Type 2 diabetes mellitus with unspecified complications E11.8 [place] [id number] [place] [address] 13398- 5326 Aug, Type 2 diabetes mellitus with unspecified [...] E55.9 and GERD (gastroesophageal reflux disease) K21.9 [place] [id number] [place] [address] 70255- 8154 Aug, [place] [id number] [place] [address] 58697- 9053 May, [place] [id number] [place] [address] 63634- 7159 Apr, [place] [id number] [place] [address] 88956- 2004 Apr, Type 2 diabetes mellitus with unspecified [...] S49.92XA and Anxiety associated with depression F41.8 [place] [id number] [place] [address] 81371- 5083 Apr, [place] [id number] [place] [address] 35369- 9686 Apr, [place] [id number] [place] [address] 79087- 3612 Apr, [place] [id number] [place] [address] 41292- 2577 Mar, [place] [address], [place] [address]- 7568 Feb, [place] [address], [place] [address]- 7591 Feb, [place] [id number] [place] [address] 89506- 8519 Jan, [place] [id number] [place] [address] 39498- 0876 Jan, [place] [id number] [place] [address] 72137- 4961 Jan, Type 2 diabetes mellitus with unspecified complications E11.8 ; Essential hypertension I10 and Vitamin D deficiency E55.9 [place] [id number] [place] [address] 82417- 3974 Dec, Type 2 diabetes mellitus with unspecified complications E11.8 ; Essential hypertension I10 ; Other chronic pain G89.29 ; Anxiety associated with depression F41.8 ; Bronchitis J40 ; Vitamin D deficiency E55.9 and COPD (chronic obstructive pulmonary disease) J44.9 [place] [id number] [place] [address] 56377- 0019 Nov, [place] [id number] [place] [address] 45369- 4034 October, [place] [id number] [place] [address] 97240- 5529 October, [place] [id number] [place] [address] 92902- 7876 October, [place] [id number] [place] [address] 63883- 2182 October, Dysuria R30.0 ; Bronchitis J40 ; Anxiety associated with depression F41.8 and Type 2 diabetes mellitus with unspecified complications E11.8 [place] [id number] [place] [address] 29316- 8123 October, Chronic renal insufficiency N18.9 ; Elevated white blood cell count D72.829 and Frequent UTI N39.0 [place] [id number] [place] [address] 51079- 4539 October, Chronic renal insufficiency N18.9 ; Elevated white blood cell count D72.829 and Frequent UTI N39.0 [place] [id number] [place] [address] 71957- 0468 October, [place] [id number] [place] [address] 03485- 9752 Sep, Type 2 diabetes mellitus with unspecified complications E11.8 ; Essential hypertension I10 ; COPD (chronic obstructive pulmonary disease ) J44.9 and Hospital discharge follow-up Z09 [place] [id number] [place] [address] 00113- 1291 Sep, [place] [id number] [place] [address] 94526- 8725 Sep, Dyspnea R06.00 ; Other chronic pain G89.29 ; Dysuria R30.0 ; Diaphoresis R61 ; Jaundice R17 ; COPD (chronic obstructive pulmonary disease) J44.9 ; Type 2 diabetes mellitus with unspecified complications E11.8 ; Excessive daytime sleepiness G47.19 and Oliguria R34 [place] [id number] [place] [address] 26450- 6630 Sep, [place] [address] [place] [address] 72944- 4254 Sep, Essential hypertension I10 ; Anxiety associated with depression F41.8 ; Mixed hyperlipidemia E78.2 ; Dyspnea R06.00 ; Shortness of breath R06.02 and Chest pain, unspecified R07.9 [place] [id number] [place] [address] 22151- 8019 Sep, Chest pain R07.9 ; Hyperlipemia E78.5 ; Type 2 diabetes mellitus with unspecified complications E11.8 ; Essential hypertension I10 ; Other chronic pain G89.29 ; Anxiety associated with depression F41.8 ; COPD ( chronic obstructive pulmonary disease) J44.9 ; Low vitamin D level E55.9 ; Tobacco abuse Z72.0 ; Hypertriglyceridemia E78.1 and Abnormal laboratory test R89.9 [place] [id number] [place] [address] 61179- 7577 Aug, Pneumonia J18.9 ; Hypertriglyceridemia E78.1 ; COPD ( chronic obstructive pulmonary disease) J44.9 and Hyperlipidemia E78.5 [place] [id number] [place] [address] 89603- 6315 Aug, Shortness of breath R06.02 ; Anxiety associated with depression F41.8 and Chest pain, unspecified R07.9 [place] [id number] [place] [address] 71305- 9253 Jul, [place] [id number] [place] [address] 64807- 9234 Jun, Anxiety associated with depression F41.8 ; [...] unspecified type R11.2 and Tobacco abuse Z72.0 [place] [id number] [place] [address] 76646- 7577 May, Hyperlipemia E78.5 [place] [id number] [place] [address] 76543- 2119 May, [place] [id number] [place] [address] 62244- 9894 May, Type 2 diabetes mellitus with unspecified complications E11.8 [place] [id number] [place] [address] 59949- 7323 May, [place] [id number] [place] [address] 32307- 4590 May, Anxiety associated with depression F41.8 ; Type 2 diabetes mellitus with unspecified complications E11.8 ; Essential hypertension I10 ; Peripheral neuropathy G62.9 ; Low back pain M54.5 ; Other chronic pain G89.29 ; GERD (gastroesophageal reflux disease) K21.9 ; Insomnia G47.00 ; COPD (chronic obstructive pulmonary disease) J44.9 ; URI (upper respiratory infection) J06.9 and Depression F32.9 [place] [id number] [place] [address] 63770- 5505 May, Low back pain M54.5 ; Anxiety about health F41.8 ; Generalized anxiety disorder F41.1 and Acute stress reaction F43.0 [place] [address] 63224- 6181 May, [address] 11164- 3746 Apr, Diabetes E11.9 ; Type 2 diabetes mellitus with unspecified complications E11.8 ; Essential hypertension I10 ; Peripheral neuropathy G62.9 ; Low back pain M54.5 ; Other chronic pain G89.29 ; GERD (gastroesophageal reflux disease) K21.9 ; Anxiety associated with depression F41.8 ; Muscle spasm of calf M62.831 ; Insomnia G47.00 and COPD (chronic obstructive pulmonary disease) J44.9 [place] [id number] [place] [address] 82435- 9692 May, [place] [id number] [place] [address] 90572- 9582 May, IMMUNIZATIONS No Known Immunizations SOCIAL HISTORY Never Assessed REASON FOR VISIT Re:RE:Insulin / Blood Sugar PLAN OF CARE VITAL SIGNS MEDICATIONS Medication Instructions Dosage Frequency Start Date End Date Duration Status Erythromycin 5 MG/GM Ophthalmic Once a day 1/2 inch ribbon 24h October, October, 05 days Active Levemir Flexpen 100 UNIT/ML Subcutaneous 2 times a day 22 units twice a day 12h October, Active NovoLog Flexpen 100 UNIT/ML Subcutaneous 3 times a day 13 units three times with meals 8h October, 12 months Active Amoxicillin 500 mg Orally 2 times a day 1 tablet 12h October, Nov, 07 days Active RESULTS No Results PROCEDURES No [...]
--- OUTSIDE RECORDS SUMMARY | 2018-02-19 17:00 | XMS REPORT ---
Author Author KATIE JEFFRIES Organization [facility] Address [address] [place] [address] Care Team Providers Care Upper Trimmer Name Role Phone MERVIN KATIE Unavailable PROBLEMS Type Condition ICD9-CM Code OEB26-BV Code Onset Dates Condition Status SNOMED Code Problem Other chronic pain G89.29 Active 70159593 Problem Insomnia G47.00 Active 131783614 Problem Type 2 diabetes mellitus with unspecified complications E11.8 Active 13238271 Problem Constipation by delayed colonic transit K59.01 Active 70622904 Problem Chronic kidney disease (CKD) stage G3b/A1, moderately decreased glomerular filtration rate (GFR) between 30-44 mL/min/1.73 square meter and albuminuria creatinine ratio less than 30 mg/g N18.3 Active 458234494 Problem Mixed hyperlipidemia E78.2 Active 605598590 Problem Controlled substance agreement signed Z79.899 Active 232800516 Problem 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 Active 81896203 Problem Vitamin D deficiency E55.9 Active 97421973 Problem Peripheral neuropathy G62.9 Active 48716023 Problem Essential hypertension I10 Active 13648933 Problem Osteoarthritis of acromioclavicular joint M19.019 Active 677323902 Problem COPD (chronic obstructive pulmonary disease) J44.9 Active 47022907 Problem Anxiety associated with depression F41.8 Active 536274912 Problem GERD (gastroesophageal reflux disease) K21.9 Active [id number] ALLERGIES No Information ENCOUNTERS Encounter Location Date Diagnosis [facility] [id number] [address] Jan, [facility] [address] [address] Jan, Other chronic pain G89.29 and Anxiety associated with depression F41.8 [facility] [id number] [place] [address] 81454- 1203 Jan, [facility] [id number] [place] [address] 50330- 0766 Dec, [facility] [id number] [place] [address] 22052- 5665 Dec, Type 2 diabetes mellitus with unspecified [...] and 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 [place] [id number] [place] [address] 23912- 4300 Dec, [place] [id number] [place] [address] 08284- 4176 Dec, Type 2 diabetes mellitus with unspecified complications E11.8 [facility] [id number] [place] [address] 02906- 9079 Dec, [facility] [id number] [place] [address] 78605- 3452 Dec, Type 2 diabetes mellitus with unspecified complications E11.8 [facility] [id number] [place] [address] 20529- 4545 Dec, Type 2 diabetes mellitus with unspecified complications E11.8 [facility] [id number] [place] [address] 45334- 7787 Dec, [facility] [id number] [place] [address] 21695- 8243 Dec, Type 2 diabetes mellitus with unspecified complications E11.8 [facility] [id number] [place] [address] 52363- 8700 Dec, [facility] [id number] [address] 5190 Dec, [facility] [address] [facility] [id number] [address] 1544 Dec, [facility] [id number] [address] 3716 Dec, [facility] [address] [address] 6242 Dec, [facility] [id number] [address] 9017 Dec, Other chronic pain G89.29 and Anxiety associated with depression F41.8 [facility] [id number] [address] 8250 Dec, Type 2 diabetes mellitus with unspecified complications E11.8 [facility] [address] [address] 3172 Nov, [facility] [address] [address] 3021 Nov, [facility] [address] [address] 6736 Nov, [facility] [id number] [address]- 0494 Nov, [facility] [id number] [address] 4624 Nov, Type 2 diabetes mellitus with unspecified complications E11.8 [facility] [address] [facility] [id number] [address] 2920 Nov, [facility] [id number] [address] 0011 Nov, Type 2 diabetes mellitus with unspecified complications E11.8 [facility] [id number] [address]- 8234 Nov, Other chronic pain G89.29 and Anxiety associated with depression F41.8 [facility] [address] [facility] [id number] [place] [address] 2546 08 Nov, 2017 Chronic renal insufficiency N18.9 [facility] [address] [address] 2546 Nov, Other chronic pain G89.29 [facility] [address] [address] 2546 Nov, Type 2 diabetes mellitus with unspecified complications E11.8 [facility] [address] [facility] [id number] [place] [address]- 1536 October, [facility] [address] [address] 5116 October, [facility] [address] [address]- 2124 October, Type 2 diabetes mellitus with unspecified complications E11.8 [facility] [address] [address]- 3973 October, [facility] [address] [address]- 7281 October, [facility] [address] [address]- 4189 October, Type 2 diabetes mellitus with unspecified complications E11.8 [facility] [address] [address]- 0276 October, [facility] [id number] [address]- 2546 October, [facility] [id number] [address]- 5767 October, Type 2 diabetes mellitus with unspecified complications E11.8 [facility] [id number] [address]- 2545 October, Type 2 diabetes mellitus with unspecified complications E11.8 ; Essential hypertension I10 ; Chronic renal insufficiency N18.9 ; BMI 40.0-44.9, adult Z68.41 ; Other chronic pain G89.29 ; Anxiety associated with depression F41.8 and Right medial knee pain M25.561 [address] [address] [address]- 7139 October, GERD (gastroesophageal reflux disease) K21.9 and Anxiety associated with depression F41.8 [place] [address] 23293- 4389 October, Anxiety associated with depression F41.8 [place] [address] 64157- 6137 Sep, [place] [address] 19911- 1432 Sep, GERD (gastroesophageal reflux disease) K21.9 and Anxiety associated with depression F41.8 [place] [address] 15754- 9924 Aug, [place] [address] 38923- 9406 Aug, [facility]note 3] [address] [address] -[address]644 Aug, Acute recurrent maxillary sinusitis J01.01 [place] [address] 17766- 2714 Aug, [place] [address] 52010- 9254 Aug, GERD (gastroesophageal reflux disease) K21.9 and Other chronic pain G89.29 [place] [address] 82278- 0623 Aug, [facility] [address] 46951 -0216 Aug, [place] [address] 32625- 1316 Aug, Controlled substance agreement signed Z79.899 ; [...] and Enlarged lymph nodes in armpit R59.0 [place] [address] 45247- 8800 Aug, Anxiety associated with depression F41.8 and GERD ( gastroesophageal reflux disease) K21.9 [place] [address] 11137- 0473 Jul, Controlled substance agreement signed Z79.899 [place] [address] 12070- 5755 Jun, Anxiety associated with depression F41.8 and GERD ( gastroesophageal reflux disease) K21.9 [place] [address] 07258- 0838 May, Anxiety associated with depression F41.8 and GERD ( gastroesophageal reflux disease) K21.9 [place] [id number] [place] [address] 42809- 9323 Apr, Mixed hyperlipidemia E78.2 [place] [id number] [place] [address] 45632- 9053 Apr, Anxiety associated with depression F41.8 and GERD ( gastroesophageal reflux disease) K21.9 [place] [id number] [place] [address] 78942- 8008 Apr, [place] [address] 41308- 2442 Apr, Type 2 diabetes mellitus with unspecified complications E11.8 [place] [address] 78386- 3529 Apr, [place] [id number] [place] [address] 08772- 1782 Apr, Type 2 diabetes mellitus with unspecified complications E11.8 [place] [id number] [place] [address] 55650- 0641 Apr, [place] [id number] [place] [address] 41429- 1173 Mar, GERD (gastroesophageal reflux disease) K21.9 and Anxiety associated with depression F41.8 [place] [id number] [place] [address] 95979- 9562 Mar, 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 [place] [id number] [place] [address] 33702- 7885 Mar, Essential hypertension I10 ; Anxiety associated with depression F41.8 ; COPD (chronic obstructive pulmonary disease) J44.9 ; Mixed hyperlipidemia E78.2 ; Vitamin D deficiency E55.9 ; GERD (gastroesophageal reflux disease) K21.9 ; Type 2 diabetes mellitus with unspecified complications E11.8 ; Other chronic pain G89.29 and Chronic renal insufficiency N18.9 [place] [id number] [place] [address] 44653- 2122 Mar, Chronic renal insufficiency N18.9 [place] [id number] [place] [address] 03743- 5957 Feb, GERD (gastroesophageal reflux disease) K21.9 and Type 2 diabetes mellitus with unspecified complications E11.8 [place] [id number] [place] [address] 84656- 4798 Feb, Anxiety associated with depression F41.8 and Tear of left supraspinatus tendon, subsequent encounter S46.812D [place] [id number] [place] [address] 12899- 9026 Jan, Pre-operative examination for internal medicine Z01.818 [place] [address] 08036- 7084 Jan, Anxiety associated with depression F41.8 and Left anterior shoulder pain M25.512 [place] [id number] [place] [address] 87756- 5089 Jan, [place] [id number] [place] [address] 08964- 5115 Jan, [place] [id number] [place] [address] 26510- 3387 Jan, Type 2 diabetes mellitus with unspecified complications E11.8 ; Essential hypertension I10 ; Other chronic pain G89.29 ; GERD ( gastroesophageal reflux disease) K21.9 ; Anxiety associated with depression F41.8 ; Insomnia G47.00 ; Hypertriglyceridemia E78.1 ; Left anterior shoulder pain M25.512 and Tobacco abuse Z72.0 [id number] [place] [address] 67632- 5170 Dec, Anxiety associated with depression F41.8 and Tear of left supraspinatus tendon, subsequent encounter S46.812D [place] [id number] [place] [address] 65301- 0993 Nov, [address] [place] [id number] [place] [address] 84811- 0947 Nov, Anxiety associated with depression F41.8 and Tear of left supraspinatus tendon, subsequent encounter S46.812D [id number] [place] [address] 47176- 4022 Nov, Abnormal lung sounds R09.89 and COPD (chronic obstructive pulmonary disease) with acute bronchitis J44.0 [id number] [place] [address] 30076- 4880 Nov, [address] [id number] [place] [address] 96616- 1221 October, COPD (chronic obstructive pulmonary disease) with acute bronchitis J44.0 ; Abnormal lung sounds R09.89 and Medication refill Z76.[id number] [place] [address] 84777- 0727 October, Anxiety associated with depression F41.8 [place] [id number] [place] [address] 70649- 3479 Sep, Nausea and vomiting, unspecified intactability, vomiting of unspecified type R11.2 [place] [id number] [place] [address] 13226- 4759 Sep, COPD (chronic obstructive pulmonary disease) J44.9 ; Tobacco abuse Z72.0 ; Tear of left supraspinatus tendon, subsequent encounter S46.812D and Type 2 diabetes mellitus with unspecified complications E11.8 [place] [id number] [place] [address] 23025- 8111 Sep, [place] [id number] [place] [address] 21569- 9801 Aug, Left anterior shoulder pain M25.512 [place] [id number] [place] [address] 57041- 5046 Aug, Left anterior shoulder pain M25.512 and Low back pain M54.5 [place] [id number] [place] [address] 80327- 3691 Aug, [place] [id number] [place] [address] 34451- 1800 Aug, [place] [id number] [place] [address] 60922- 0601 Aug, [place] [id number] [place] [address] 32590- 5241 Aug, [place] [id number] [place] [address] 26047- 5428 Aug, Type 2 diabetes mellitus with unspecified complications E11.8 [place] [id number] [place] [address] 67264- 7460 Aug, Type 2 diabetes mellitus with unspecified [...] E55.9 and GERD (gastroesophageal reflux disease) K21.9 [place] [id number] [place] [address] 92868- 5896 Aug, [place] [id number] [place] [address] 57280- 3821 May, [place] [id number] [place] [address] 04057- 3636 Apr, [place] [id number] [place] [address] 35683- 6107 Apr, Type 2 diabetes mellitus with unspecified [...] S49.92XA and Anxiety associated with depression F41.8 [place] [address] [place] [address] 64041- 6598 Apr, [place] [id number] [place] [address] 01822- 8298 Apr, [place] [id number] [place] [address] 60399- 2834 Apr, [place] [id number] [place] [address] 22171- 6353 Mar, [place] [address] [address]- 7975 Feb, [place] [address] [address]- 3121 Feb, [place] [id number] [place] [address] 95333- 9353 Jan, [place] [id number] [place] [address] 40128- 3164 Jan, [place] [id number] [place] [address] 24475- 0911 Jan, Type 2 diabetes mellitus with unspecified complications E11.8 ; Essential hypertension I10 and Vitamin D deficiency E55.9 [place] [id number] [place] [address] 10601- 3447 Dec, Type 2 diabetes mellitus with unspecified complications E11.8 ; Essential hypertension I10 ; Other chronic pain G89.29 ; Anxiety associated with depression F41.8 ; Bronchitis J40 ; Vitamin D deficiency E55.9 and COPD (chronic obstructive pulmonary disease) J44.9 [place] [id number] [place] [address] 88039- 6080 Nov, [place] [id number] [place] [address] 36461- 7173 October, [place] [id number] [place] [address] 77075- 1479 October, [place] [id number] [place] [address] 66362- 0499 October, [place] [id number] [place] [address] 59324- 4226 October, Dysuria R30.0 ; Bronchitis J40 ; Anxiety associated with depression F41.8 and Type 2 diabetes mellitus with unspecified complications E11.8 [place] [id number] [place] [address] 88673- 0849 October, Chronic renal insufficiency N18.9 ; Elevated white blood cell count D72.829 and Frequent UTI N39.0 [place] [id number] [place] [address] 01258- 5850 October, Chronic renal insufficiency N18.9 ; Elevated white blood cell count D72.829 and Frequent UTI N39.0 [place] [address] [place] [address] 46134- 8036 October, [place] [id number] [place] [address] 11914- 2833 Sep, Type 2 diabetes mellitus with unspecified complications E11.8 ; Essential hypertension I10 ; COPD (chronic obstructive pulmonary disease ) J44.9 and Hospital discharge follow-up Z09 [place] [id number] [place] [address] 41116- 7881 Sep, [place] [id number] [place] [address] 94700- 1459 Sep, Dyspnea R06.00 ; Other chronic pain G89.29 ; Dysuria R30.0 ; Diaphoresis R61 ; Jaundice R17 ; COPD (chronic obstructive pulmonary disease) J44.9 ; Type 2 diabetes mellitus with unspecified complications E11.8 ; Excessive daytime sleepiness G47.19 and Oliguria R34 [place] [address] [place] [address] 60822- 1060 Sep, [place] [address] [place] [address] 25628- 6156 Sep, Essential hypertension I10 ; Anxiety associated with depression F41.8 ; Mixed hyperlipidemia E78.2 ; Dyspnea R06.00 ; Shortness of breath R06.02 and Chest pain, unspecified R07.9 [place] [address] [place] [address] 69795- 0520 Sep, Chest pain R07.9 ; Hyperlipemia E78.5 ; Type 2 diabetes mellitus with unspecified complications E11.8 ; Essential hypertension I10 ; Other chronic pain G89.29 ; Anxiety associated with depression F41.8 ; COPD ( chronic obstructive pulmonary disease) J44.9 ; Low vitamin D level E55.9 ; Tobacco abuse Z72.0 ; Hypertriglyceridemia E78.1 and Abnormal laboratory test R89.9 [place] [address] [place] [address] 42301- 0751 Aug, Pneumonia J18.9 ; Hypertriglyceridemia E78.1 ; COPD ( chronic obstructive pulmonary disease) J44.9 and Hyperlipidemia E78.5 [place] [id number] [place] [address] 16581- 2673 Aug, Shortness of breath R06.02 ; Anxiety associated with depression F41.8 and Chest pain, unspecified R07.9 [place] [id number] [place] [address] 43188- 6455 Jul, [place] [id number] [place] [address] 69461- 0829 Jun, Anxiety associated with depression F41.8 ; [...] unspecified type R11.2 and Tobacco abuse Z72.0 [place] [id number] [place] [address] 79713- 9954 May, Hyperlipemia E78.5 [place] [id number] [place] [address] 05785- 5644 May, [place] [id number] [place] [address] 71337- 7988 May, Type 2 diabetes mellitus with unspecified complications E11.8 [place] [id number] [place] [address] 44506- 9989 May, [place] [id number] [place] [address] 79958- 5637 May, Anxiety associated with depression F41.8 ; Type 2 diabetes mellitus with unspecified complications E11.8 ; Essential hypertension I10 ; Peripheral neuropathy G62.9 ; Low back pain M54.5 ; Other chronic pain G89.29 ; GERD (gastroesophageal reflux disease) K21.9 ; Insomnia G47.00 ; COPD (chronic obstructive pulmonary disease) J44.9 ; URI (upper respiratory infection) J06.9 and Depression F32.9 [place] [id number] [place] [address] 25587- 6849 May, Low back pain M54.5 ; Anxiety about health F41.8 ; Generalized anxiety disorder F41.1 and Acute stress reaction F43.[address] 06419- 4659 May, [address] 26656- 4519 Apr, Diabetes E11.9 ; Type 2 diabetes mellitus with unspecified complications E11.8 ; Essential hypertension I10 ; Peripheral neuropathy G62.9 ; Low back pain M54.5 ; Other chronic pain G89.29 ; GERD (gastroesophageal reflux disease) K21.9 ; Anxiety associated with depression F41.8 ; Muscle spasm of calf M62.831 ; Insomnia G47.00 and COPD (chronic obstructive pulmonary disease) J44.[address] [phone] May, [place] [id number] [place] [id number] May, IMMUNIZATIONS No Known Immunizations SOCIAL HISTORY Never Assessed REASON FOR VISIT sore throat PLAN OF CARE VITAL SIGNS MEDICATIONS Unknown [...]
--- OUTSIDE RECORDS SUMMARY | 2018-02-19 17:00 | XMS REPORT ---
Author Author KATIE JEFFRIES Organization [facility] Address [address] [place] [address] Care Team Providers Care Graduate Advisor Name Role Phone MERVIN KATIE Unavailable PROBLEMS Type Condition ICD9-CM Code GHJ45-EM Code Onset Dates Condition Status SNOMED Code Problem Other chronic pain G89.29 Active 91421007 Problem Insomnia G47.00 Active 453677010 Problem Type 2 diabetes mellitus with unspecified complications E11.8 Active 87301655 Problem Constipation by delayed colonic transit K59.01 Active 51940923 Problem Chronic kidney disease (CKD) stage G3b/A1, moderately decreased glomerular filtration rate (GFR) between 30-44 mL/min/1.73 square meter and albuminuria creatinine ratio less than 30 mg/g N18.3 Active 836397921 Problem Mixed hyperlipidemia E78.2 Active 924877354 Problem Controlled substance agreement signed Z79.899 Active 689699764 Problem 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 Active 82718173 Problem Vitamin D deficiency E55.9 Active 06150298 Problem Peripheral neuropathy G62.9 Active 94111829 Problem Essential hypertension I10 Active 20739507 Problem Osteoarthritis of acromioclavicular joint M19.019 Active 761550236 Problem COPD (chronic obstructive pulmonary disease) J44.9 Active 46799862 Problem Anxiety associated with depression F41.8 Active 337650060 Problem GERD (gastroesophageal reflux disease) K21.9 Active 729118218 ALLERGIES No Information ENCOUNTERS Encounter Location Date Diagnosis [facility] [id number], [place] [address] Jan, [facility] [address], [place] [address] Jan, Other chronic pain G89.29 and Anxiety associated with depression F41.8 [facility] [id number] [place] [address] 75179- 4039 Jan, [facility] [id number] [place] [address] 64806- 3772 Dec, [facility] [id number] [place] [address] 04443- 0122 Dec, Type 2 diabetes mellitus with unspecified [...] and 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 [place] [id number] [place] [address] 50826- 6973 Dec, [facility] [id number] [place] [address] 14551- 8098 Dec, Type 2 diabetes mellitus with unspecified complications E11.8 [facility] [id number] [place] [address] 76636- 3621 Dec, [facility] [id number] [place] [address] 86585- 5556 Dec, Type 2 diabetes mellitus with unspecified complications E11.8 [facility] [id number] [place] [address] 15535- 6566 Dec, Type 2 diabetes mellitus with unspecified complications E11.8 [facility] [id number] [place] [address] 60353- 8102 Dec, [facility] [id number] [place] [address] 75860- 8610 Dec, Type 2 diabetes mellitus with unspecified complications E11.8 [facility] [id number] [place] [address] 08664- 5206 Dec, [facility] [id number] [address] 9692 Dec, [facility] [address] [facility] [id number] [address] Dec, [facility] [id number], [place] [address] 7296 Dec, [facility] [address], [place] [address] 7477 Dec, [facility] [id number], [place] [address] 1663 Dec, Other chronic pain G89.29 and Anxiety associated with depression F41.8 [facility] [id number], [place] [address] 8916 Dec, Type 2 diabetes mellitus with unspecified complications E11.8 [facility] [address], [place] [address] 8668 Nov, [facility] [address], [place] [address] 5189 Nov, [facility] [address], [place] [address] 0157 Nov, [facility] [id number], [place] [address] 3930 Nov, [facility] [id number], [place] [address] 3045 Nov, Type 2 diabetes mellitus with unspecified complications E11.8 [facility] [address] [facility] [id number] [address] 4[address] Nov, [facility] [id number], [place] [address] 1701 Nov, Type 2 diabetes mellitus with unspecified complications E11.8 [facility] [id number], [place] [address] 7373 Nov, Other chronic pain G89.29 and Anxiety associated with depression F41.8 [facility] [address] [facility] [id number] [place] [address] 2546 08 Nov, 2017 Chronic renal insufficiency N18.9 [facility] [id number] [address] 2546 Nov, Other chronic pain G89.29 [facility] [address] [address] 2546 Nov, Type 2 diabetes mellitus with unspecified complications E11.8 [facility] [address] [facility]] [id number] [place] [address]- 5166 October, [facility] [id number] [address]- 2566 October, [facility] [id number] [address]- 4374 October, Type 2 diabetes mellitus with unspecified complications E11.8 [facility] [address], [place] [address] 4036 October, [facility] [id number] [place] [address]- 4742 October, [facility] [address], [place] [address] 7917 October, Type 2 diabetes mellitus with unspecified complications E11.8 [facility] [address], [place] [address] 8536 October, [facility] [id number], [place] [address]- 2546 October, [facility] [id number], [place] [address]- 6855 October, Type 2 diabetes mellitus with unspecified complications E11.8 [facility] [id number] [place] [address]- 2544 October, Type 2 diabetes mellitus with unspecified complications E11.8 ; Essential hypertension I10 ; Chronic renal insufficiency N18.9 ; BMI 40.0-44.9, adult Z68.41 ; Other chronic pain G89.29 ; Anxiety associated with depression F41.8 and Right medial knee pain M25.561 [place] [address] [address]- [address]28 October, GERD (gastroesophageal reflux disease) K21.9 and Anxiety associated with depression F41.8 [place] [address] 62178- 0795 October, Anxiety associated with depression F41.8 [place] [address] 11713- 1673 Sep, [place] [address] 58690- 5214 Sep, GERD (gastroesophageal reflux disease) K21.9 and Anxiety associated with depression F41.8 [place] [address] 42709- 2002 Aug, [place] [address] 57192- 4945 Aug, [facility] [address] [address] -[address]888 Aug, Acute recurrent maxillary sinusitis J01.01 [place] [address] 93012- 7785 Aug, [place] [address] 01406- 4462 Aug, GERD (gastroesophageal reflux disease) K21.9 and Other chronic pain G89.29 [place] [address] 09101- 7520 Aug, [facility] [address] [address] -[address]11 Aug, [place] [address] 54625- 7970 Aug, Controlled substance agreement signed Z79.899 ; [...] and Enlarged lymph nodes in armpit R59.0 [place] [address] 93047- 8984 Aug, Anxiety associated with depression F41.8 and GERD ( gastroesophageal reflux disease) K21.9 [place] [address] 24090- 6748 Jul, Controlled substance agreement signed Z79.899 [place] [address] 39625- 4052 Jun, Anxiety associated with depression F41.8 and GERD ( gastroesophageal reflux disease) K21.9 [place] [address] 69395- 6485 May, Anxiety associated with depression F41.8 and GERD ( gastroesophageal reflux disease) K21.9 [place] [id number] [place] [address] 71286- 1257 Apr, Mixed hyperlipidemia E78.2 [place] [id number] [place] [address] 79494- 6321 Apr, Anxiety associated with depression F41.8 and GERD ( gastroesophageal reflux disease) K21.9 [place] [id number] [place] [address] 50694- 1121 Apr, [place] [address] 19454- 1747 Apr, Type 2 diabetes mellitus with unspecified complications E11.8 [place] [address] 58496- 7994 Apr, [place] [address] [place] [address] 58263- 7250 Apr, Type 2 diabetes mellitus with unspecified complications E11.8 [place] [id number] [place] [address] 43082- 8180 Apr, [place] [id number] [place] [address] 64545- 8311 Mar, GERD (gastroesophageal reflux disease) K21.9 and Anxiety associated with depression F41.8 [place] [id number] [place] [address] 74486- 5921 Mar, 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 [place] [id number] [place] [address] 89698- 0638 Mar, Essential hypertension I10 ; Anxiety associated with depression F41.8 ; COPD (chronic obstructive pulmonary disease) J44.9 ; Mixed hyperlipidemia E78.2 ; Vitamin D deficiency E55.9 ; GERD (gastroesophageal reflux disease) K21.9 ; Type 2 diabetes mellitus with unspecified complications E11.8 ; Other chronic pain G89.29 and Chronic renal insufficiency N18.9 [place] [id number] [place] [address] 62141- 7713 Mar, Chronic renal insufficiency N18.9 [place] [id number] [place] [address] 43548- 9056 Feb, GERD (gastroesophageal reflux disease) K21.9 and Type 2 diabetes mellitus with unspecified complications E11.8 [place] [id number] [place] [address] 82596- 2854 Feb, Anxiety associated with depression F41.8 and Tear of left supraspinatus tendon, subsequent encounter S46.812D [place] [address] [place] [address] 63999- 0697 Jan, Pre-operative examination for internal medicine Z01.818 [place] [address] 24377- 8474 Jan, Anxiety associated with depression F41.8 and Left anterior shoulder pain M25.512 [place] [id number] [place] [address] 40424- 9604 Jan, [place] [id number] [place] [address] 92379- 3889 Jan, [place] [id number] [place] [address] 39656- 3699 Jan, Type 2 diabetes mellitus with unspecified complications E11.8 ; Essential hypertension I10 ; Other chronic pain G89.29 ; GERD ( gastroesophageal reflux disease) K21.9 ; Anxiety associated with depression F41.8 ; Insomnia G47.00 ; Hypertriglyceridemia E78.1 ; Left anterior shoulder pain M25.512 and Tobacco abuse Z72.0 [id number] [place] [address] 28844- 5263 Dec, Anxiety associated with depression F41.8 and Tear of left supraspinatus tendon, subsequent encounter S46.812D [place] [id number] [place] [address] 30647- 8306 Nov, [id number] [place] [address] 11708- 1706 Nov, Anxiety associated with depression F41.8 and Tear of left supraspinatus tendon, subsequent encounter S46.812D [id number] [place] [address] 32979- 4913 Nov, Abnormal lung sounds R09.89 and COPD (chronic obstructive pulmonary disease) with acute bronchitis J44.0 [id number] [place] [address] 50989- 8378 Nov, [id number] [place] [address] 05152- 2981 October, COPD (chronic obstructive pulmonary disease) with acute bronchitis J44.0 ; Abnormal lung sounds R09.89 and Medication refill Z76.[id number] [place] [address] 61404- 7136 October, Anxiety associated with depression F41.8 [place] [id number] [place] [address] 94993- 6599 Sep, Nausea and vomiting, unspecified intactability, vomiting of unspecified type R11.2 [place] [address] [place] [address] 90649- 8983 Sep, COPD (chronic obstructive pulmonary disease) J44.9 ; Tobacco abuse Z72.0 ; Tear of left supraspinatus tendon, subsequent encounter S46.812D and Type 2 diabetes mellitus with unspecified complications E11.8 [place] [address] [place] [address] 49113- 9294 Sep, [place] [address] [place] [address] 91039- 8602 Aug, Left anterior shoulder pain M25.512 [place] [address] [place] [address] 88356- 7998 Aug, Left anterior shoulder pain M25.512 and Low back pain M54.5 [place] [id number] [place] [address] 93880- 7162 Aug, [place] [id number] [place] [address] 62958- 5736 Aug, [place] [id number] [place] [address] 80760- 2881 Aug, [place] [id number] [place] [address] 92408- 6135 Aug, [place] [id number] [place] [address] 66209- 9431 Aug, Type 2 diabetes mellitus with unspecified complications E11.8 [place] [id number] [place] [address] 41696- 2969 Aug, Type 2 diabetes mellitus with unspecified [...] E55.9 and GERD (gastroesophageal reflux disease) K21.9 [place] [id number] [place] [address] 32933- 4852 Aug, [place] [id number] [place] [address] 69314- 3001 May, [place] [id number] [place] [address] 52235- 8539 Apr, [place] [address] [place] [address] 09783- 3157 Apr, Type 2 diabetes mellitus with unspecified [...] S49.92XA and Anxiety associated with depression F41.8 [place] [address] [place] [address] 15419- 2514 Apr, [place] [id number] [place] [address] 87976- 6990 Apr, [place] [address] [place] [address] 87611- 9972 Apr, [place] [id number] [place] [address] 37505- 5879 Mar, [place] [address], [place] [address]- 8678 Feb, [place] [address], [place] [address]- 1645 Feb, [place] [id number] [place] [address] 75824- 1600 Jan, [place] [id number] [place] [address] 58558- 0628 Jan, [place] [id number] [place] [address] 71153- 1067 Jan, Type 2 diabetes mellitus with unspecified complications E11.8 ; Essential hypertension I10 and Vitamin D deficiency E55.9 [place] [address] [place] [address] 57176- 4025 Dec, Type 2 diabetes mellitus with unspecified complications E11.8 ; Essential hypertension I10 ; Other chronic pain G89.29 ; Anxiety associated with depression F41.8 ; Bronchitis J40 ; Vitamin D deficiency E55.9 and COPD (chronic obstructive pulmonary disease) J44.9 [place] [id number] [place] [address] 44054- 5666 Nov, [place] [id number] [place] [address] 72687- 9166 October, [place] [id number] [place] [address] 83936- 8054 October, [place] [id number] [place] [address] 77417- 0580 October, [place] [address] [place] [address] 43817- 7679 October, Dysuria R30.0 ; Bronchitis J40 ; Anxiety associated with depression F41.8 and Type 2 diabetes mellitus with unspecified complications E11.8 [place] [address] [place] [address] 97509- 0871 October, Chronic renal insufficiency N18.9 ; Elevated white blood cell count D72.829 and Frequent UTI N39.0 [place] [address] [place] [address] 77735- 8897 October, Chronic renal insufficiency N18.9 ; Elevated white blood cell count D72.829 and Frequent UTI N39.0 [place] [address] [place] [address] 75484- 3537 October, [place] [address] [place] [address] 86646- 8775 Sep, Type 2 diabetes mellitus with unspecified complications E11.8 ; Essential hypertension I10 ; COPD (chronic obstructive pulmonary disease ) J44.9 and Hospital discharge follow-up Z09 [place] [address] [place] [address] 19788- 0034 Sep, [place] [address] [place] [address] 46265- 3920 Sep, Dyspnea R06.00 ; Other chronic pain G89.29 ; Dysuria R30.0 ; Diaphoresis R61 ; Jaundice R17 ; COPD (chronic obstructive pulmonary disease) J44.9 ; Type 2 diabetes mellitus with unspecified complications E11.8 ; Excessive daytime sleepiness G47.19 and Oliguria R34 [place] [address] [place] [address] 06404- 3368 Sep, [place] [address] [place] [address] 35085- 5795 Sep, Essential hypertension I10 ; Anxiety associated with depression F41.8 ; Mixed hyperlipidemia E78.2 ; Dyspnea R06.00 ; Shortness of breath R06.02 and Chest pain, unspecified R07.9 [place] [address] [place] [address] 36380- 2823 Sep, Chest pain R07.9 ; Hyperlipemia E78.5 ; Type 2 diabetes mellitus with unspecified complications E11.8 ; Essential hypertension I10 ; Other chronic pain G89.29 ; Anxiety associated with depression F41.8 ; COPD ( chronic obstructive pulmonary disease) J44.9 ; Low vitamin D level E55.9 ; Tobacco abuse Z72.0 ; Hypertriglyceridemia E78.1 and Abnormal laboratory test R89.9 [place] [address] [place] [address] 58906- 3205 Aug, Pneumonia J18.9 ; Hypertriglyceridemia E78.1 ; COPD ( chronic obstructive pulmonary disease) J44.9 and Hyperlipidemia E78.5 [place] [address] [place] [address] 14889- 3453 Aug, Shortness of breath R06.02 ; Anxiety associated with depression F41.8 and Chest pain, unspecified R07.9 [id number] [place] [address] 47641- 1463 Jul, [id number] [place] [address] 04401- 2506 Jun, Anxiety associated with depression F41.8 ; [...] R11.2 and Tobacco abuse Z72.0 [id number] [place] [address] 64850- 8676 May, Hyperlipemia E78.5 [id number] [place] [address] 90037- 5691 May, [id number] [place] [address] 89010- 8929 May, Type 2 diabetes mellitus with unspecified complications E11.8 [id number] [place] [address] 38382- 1822 May, [id number] [place] [address] 23715- 5359 May, Anxiety associated with depression F41.8 ; Type 2 diabetes mellitus with unspecified complications E11.8 ; Essential hypertension I10 ; Peripheral neuropathy G62.9 ; Low back pain M54.5 ; Other chronic pain G89.29 ; GERD (gastroesophageal reflux disease) K21.9 ; Insomnia G47.00 ; COPD (chronic obstructive pulmonary disease) J44.9 ; URI (upper respiratory infection) J06.9 and Depression F32.9 [id number] [place] [address] 74815- 0657 May, Low back pain M54.5 ; Anxiety about health F41.8 ; Generalized anxiety disorder F41.1 and Acute stress reaction F43.[address] 01923- 4411 May, [address] 38837- 1285 Apr, Diabetes E11.9 ; Type 2 diabetes mellitus with unspecified complications E11.8 ; Essential hypertension I10 ; Peripheral neuropathy G62.9 ; Low back pain M54.5 ; Other chronic pain G89.29 ; GERD (gastroesophageal reflux disease) K21.9 ; Anxiety associated with depression F41.8 ; Muscle spasm of calf M62.831 ; Insomnia G47.00 and COPD (chronic obstructive pulmonary disease) J44.[address] 39164- 6220 May, [id number] [place] [address] 61619- 2539 May, IMMUNIZATIONS No Known Immunizations SOCIAL HISTORY Never Assessed REASON FOR VISIT Insulin / Blood Sugar PLAN OF CARE VITAL SIGNS MEDICATIONS Unknown [...]
--- OUTSIDE RECORDS SUMMARY | 2018-02-19 17:01 | XMS REPORT ---
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 Name Role Phone MERVIN KATIE Unavailable PROBLEMS Type Condition ICD9-CM Code CNF60-EA Code Onset Dates Condition Status SNOMED Code Problem Other chronic pain G89.29 Active 50475086 Problem Insomnia G47.00 Active 760425422 Problem Type 2 diabetes mellitus with unspecified complications E11.8 Active 46931603 Problem Constipation by delayed colonic transit K59.01 Active 78641606 Problem Chronic kidney disease (CKD) stage G3b/A1, moderately decreased glomerular filtration rate (GFR) between 30-44 mL/min/1.73 square meter and albuminuria creatinine ratio less than 30 mg/g N18.3 Active 249072367 Problem Mixed hyperlipidemia E78.2 Active 164907818 Problem Controlled substance agreement signed Z79.899 Active 522504962 Problem 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 Active 69330027 Problem Vitamin D deficiency E55.9 Active 21652350 Problem Peripheral neuropathy G62.9 Active 00858140 Problem Essential hypertension I10 Active 59598703 Problem Osteoarthritis of acromioclavicular joint M19.019 Active 440175618 Problem COPD (chronic obstructive pulmonary disease) J44.9 Active 76237058 Problem Anxiety associated with depression F41.8 Active 042406353 Problem GERD (gastroesophageal reflux disease) K21.9 Active 632327679 ALLERGIES No Information ENCOUNTERS Encounter Location Date Diagnosis [facility] [id number] [address] Jan, [facility] [address] [address] Jan, Other chronic pain G89.29 and Anxiety associated with depression F41.8 [facility] [id number] [place] [address] 64034- 5414 Jan, [facility] [id number] [place] [address] 20282- 1855 Dec, [facility] [id number] [place] [address] 73662- 9230 Dec, Type 2 diabetes mellitus with unspecified [...] and 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 [place] [id number] [place] [address] 70612- 4992 Dec, [place] [id number] [place] [address] 14076- 7098 Dec, Type 2 diabetes mellitus with unspecified complications E11.8 [facility] [id number] [place] [address] 93662- 5246 Dec, [facility] [id number] [place] [address] 51663- 0474 Dec, Type 2 diabetes mellitus with unspecified complications E11.8 [facility] [id number] [place] [address] 08376- 2078 Dec, Type 2 diabetes mellitus with unspecified complications E11.8 [facility] [id number] [place] [address] 11631- 1853 Dec, [facility] [id number] [place] [address] 84836- 6644 Dec, Type 2 diabetes mellitus with unspecified complications E11.8 [facility] [id number] [place] [address] 43431- 3936 Dec, [facility] [id number] [address] 1328 Dec, [facility] [address] [facility] [id number] [address] 9[address] Dec, [facility] [id number] [address] 5686 Dec, [facility] [address] [address] Dec, [facility] [id number] [address] 0202 Dec, Other chronic pain G89.29 and Anxiety associated with depression F41.8 [facility] [id number] [address] 6973 Dec, Type 2 diabetes mellitus with unspecified complications E11.8 [facility] [address] [address] 5986 Nov, [facility] [address] [address] 4867 Nov, [facility] [address] [address]- 5565 Nov, [facility] [id number] [address]- 5100 Nov, [facility] [id number] [address] 3793 Nov, Type 2 diabetes mellitus with unspecified complications E11.8 [facility] [address] [facility] [id number] [address] 9[address] Nov, [facility] [id number] [address]- 8769 Nov, Type 2 diabetes mellitus with unspecified complications E11.8 [facility] [id number] [address]- 8939 Nov, Other chronic pain G89.29 and Anxiety associated with depression F41.8 [facility] [address] [facility] [id number] [place] [address] 2546 08 Nov, 2017 Chronic renal insufficiency N18.9 [facility] [address] [place] [place] [address] 2546 Nov, Other chronic pain G89.29 [facility] [address] [place] [facility] [place] [address] 2546 Nov, Type 2 diabetes mellitus with unspecified complications E11.8 [facility] [address] [facility] [id number] [place] [address]- 5436 October, [facility] [address] [place] [address]- 6[address] October, [facility] [address] [place] [place] [address] 8439 October, Type 2 diabetes mellitus with unspecified complications E11.8 [facility] [address] [address]- 2712 October, [facility] [address] [place] [facility] [place] [address]- 8689 October, [facility] [address] [address]- 6384 October, Type 2 diabetes mellitus with unspecified complications E11.8 [facility] [address] [address]- 7106 October, [facility] [id number] [address]- 2546 October, [facility] [id number] [address]- 1331 October, Type 2 diabetes mellitus with unspecified complications E11.8 [facility] [id number] [place] [place] [address]- 254 October, Type 2 diabetes mellitus with unspecified complications E11.8 ; Essential hypertension I10 ; Chronic renal insufficiency N18.9 ; BMI 40.0-44.9, adult Z68.41 ; Other chronic pain G89.29 ; Anxiety associated with depression F41.8 and Right medial knee pain M25.561 [place] [address] 96185- 0393 October, GERD (gastroesophageal reflux disease) K21.9 and Anxiety associated with depression F41.8 [place] [address] 23681- 5737 October, Anxiety associated with depression F41.8 [place] [address] 04548- 3384 Sep, [place] [address] 36031- 2880 Sep, GERD (gastroesophageal reflux disease) K21.9 and Anxiety associated with depression F41.8 [place] [address] 82986- 1405 Aug, [place] [address] 10458- 3258 Aug, [facility] [address] [address] Aug, Acute recurrent maxillary sinusitis J01.01 [place] [address] 70918- 6542 Aug, [place] [address] 16775- 5037 Aug, GERD (gastroesophageal reflux disease) K21.9 and Other chronic pain G89.29 [place] [address] 81667- 2778 Aug, [facility] [address] [address] -[address]334 Aug, [place] [address] 08451- 0469 Aug, Controlled substance agreement signed Z79.899 ; [...] and Enlarged lymph nodes in armpit R59.0 [place] [address] 46959- 2018 Aug, Anxiety associated with depression F41.8 and GERD ( gastroesophageal reflux disease) K21.9 [place] [address] 40551- 4496 Jul, Controlled substance agreement signed Z79.899 [place] [address] 19993- 7831 Jun, Anxiety associated with depression F41.8 and GERD ( gastroesophageal reflux disease) K21.9 [place] [address] 20589- 8103 May, Anxiety associated with depression F41.8 and GERD ( gastroesophageal reflux disease) K21.9 [place] [id number] [place] [address] 82101- 9323 Apr, Mixed hyperlipidemia E78.2 [place] [id number] [place] [address] 28941- 2823 Apr, Anxiety associated with depression F41.8 and GERD ( gastroesophageal reflux disease) K21.9 [place] [id number] [place] [address] 54957- 1942 Apr, [place] [address] 64342- 2517 Apr, Type 2 diabetes mellitus with unspecified complications E11.8 [place] [address] 74829- 2148 Apr, [place] [id number] [place] [address] 39923- 5513 Apr, Type 2 diabetes mellitus with unspecified complications E11.8 [place] [id number] [place] [address] 02338- 0447 Apr, [place] [id number] [place] [address] 73901- 8260 Mar, GERD (gastroesophageal reflux disease) K21.9 and Anxiety associated with depression F41.8 [place] [id number] [place] [address] 89188- 0381 Mar, 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 [place] [id number] [place] [address] 84720- 3665 Mar, Essential hypertension I10 ; Anxiety associated with depression F41.8 ; COPD (chronic obstructive pulmonary disease) J44.9 ; Mixed hyperlipidemia E78.2 ; Vitamin D deficiency E55.9 ; GERD (gastroesophageal reflux disease) K21.9 ; Type 2 diabetes mellitus with unspecified complications E11.8 ; Other chronic pain G89.29 and Chronic renal insufficiency N18.9 [place] [id number] [place] [address] 77003- 7083 Mar, Chronic renal insufficiency N18.9 [place] [id number] [place] [address] 87302- 4894 Feb, GERD (gastroesophageal reflux disease) K21.9 and Type 2 diabetes mellitus with unspecified complications E11.8 [place] [id number] [place] [address] 35306- 9164 Feb, Anxiety associated with depression F41.8 and Tear of left supraspinatus tendon, subsequent encounter S46.812D [place] [id number] [place] [address] 28450- 4893 Jan, Pre-operative examination for internal medicine Z01.818 [place] [address] 96550- 4080 Jan, Anxiety associated with depression F41.8 and Left anterior shoulder pain M25.512 [place] [id number] [place] [address] 10594- 8532 Jan, [place] [id number] [place] [address] 88711- 5546 Jan, [place] [id number] [place] [address] 70059- 3930 Jan, Type 2 diabetes mellitus with unspecified complications E11.8 ; Essential hypertension I10 ; Other chronic pain G89.29 ; GERD ( gastroesophageal reflux disease) K21.9 ; Anxiety associated with depression F41.8 ; Insomnia G47.00 ; Hypertriglyceridemia E78.1 ; Left anterior shoulder pain M25.512 and Tobacco abuse Z72.0 [id number] [place] [address] 36681- 6918 Dec, Anxiety associated with depression F41.8 and Tear of left supraspinatus tendon, subsequent encounter S46.812D [place] [id number] [place] [address] 10699- 4941 Nov, [address] [address] [id number] [place] [address] 10941- 5941 Nov, Anxiety associated with depression F41.8 and Tear of left supraspinatus tendon, subsequent encounter S46.812D [id number] [place] [address] 83074- 3336 Nov, Abnormal lung sounds R09.89 and COPD (chronic obstructive pulmonary disease) with acute bronchitis J44.0 [id number] [place] [address] 81381- 9403 Nov, [address] [id number] [place] [address] 71491- 3363 October, COPD (chronic obstructive pulmonary disease) with acute bronchitis J44.0 ; Abnormal lung sounds R09.89 and Medication refill Z76.[id number] [place] [address] 97793- 5390 October, Anxiety associated with depression F41.8 [place] [id number] [place] [address] 87834- 3767 Sep, Nausea and vomiting, unspecified intactability, vomiting of unspecified type R11.2 [place] [id number] [place] [address] 12334- 1714 Sep, COPD (chronic obstructive pulmonary disease) J44.9 ; Tobacco abuse Z72.0 ; Tear of left supraspinatus tendon, subsequent encounter S46.812D and Type 2 diabetes mellitus with unspecified complications E11.8 [place] [id number] [place] [address] 19766- 4438 Sep, [place] [id number] [place] [address] 07613- 5668 Aug, Left anterior shoulder pain M25.512 [place] [id number] [place] [address] 52285- 3211 Aug, Left anterior shoulder pain M25.512 and Low back pain M54.5 [place] [id number] [place] [address] 73890- 2897 Aug, [place] [id number] [place] [address] 00641- 8477 Aug, [place] [id number] [place] [address] 96040- 6792 Aug, [place] [id number] [place] [address] 61983- 9016 Aug, [place] [id number] [place] [address] 36050- 0885 Aug, Type 2 diabetes mellitus with unspecified complications E11.8 [place] [id number] [place] [address] 98326- 6694 Aug, Type 2 diabetes mellitus with unspecified [...] E55.9 and GERD (gastroesophageal reflux disease) K21.9 [place] [id number] [place] [address] 95864- 1466 Aug, [place] [id number] [place] [address] 74002- 5107 May, [place] [id number] [place] [address] 53362- 0078 Apr, [place] [id number] [place] [address] 67322- 3412 Apr, Type 2 diabetes mellitus with unspecified [...] S49.92XA and Anxiety associated with depression F41.8 [place] [id number] [place] [address] 97998- 3680 Apr, [place] [id number] [place] [address] 31221- 6544 Apr, [place] [id number] [place] [address] 41987- 5117 Apr, [place] [id number] [place] [address] 15029- 1849 Mar, [place] [address] [address]- 5325 Feb, [place] [address] [address]- 3660 Feb, [place] [id number] [place] [address] 25081- 0043 Jan, [place] [id number] [place] [address] 77835- 0338 Jan, [place] [id number] [place] [address] 29531- 8933 Jan, Type 2 diabetes mellitus with unspecified complications E11.8 ; Essential hypertension I10 and Vitamin D deficiency E55.9 [place] [id number] [place] [address] 31198- 1142 Dec, Type 2 diabetes mellitus with unspecified complications E11.8 ; Essential hypertension I10 ; Other chronic pain G89.29 ; Anxiety associated with depression F41.8 ; Bronchitis J40 ; Vitamin D deficiency E55.9 and COPD (chronic obstructive pulmonary disease) J44.9 [place] [id number] [place] [address] 12027- 3372 Nov, [place] [id number] [place] [address] 37431- 9178 October, [place] [id number] [place] [address] 11167- 2093 October, [place] [id number] [place] [address] 97058- 3110 October, [place] [id number] [place] [address] 03793- 5564 October, Dysuria R30.0 ; Bronchitis J40 ; Anxiety associated with depression F41.8 and Type 2 diabetes mellitus with unspecified complications E11.8 [place] [id number] [place] [address] 69889- 5380 October, Chronic renal insufficiency N18.9 ; Elevated white blood cell count D72.829 and Frequent UTI N39.0 [place] [id number] [place] [address] 17934- 8472 October, Chronic renal insufficiency N18.9 ; Elevated white blood cell count D72.829 and Frequent UTI N39.0 [place] [id number] [place] [address] 54222- 9701 October, [place] [id number] [place] [address] 89994- 7694 Sep, Type 2 diabetes mellitus with unspecified complications E11.8 ; Essential hypertension I10 ; COPD (chronic obstructive pulmonary disease ) J44.9 and Hospital discharge follow-up Z09 [place] [id number] [place] [address] 38001- 1224 Sep, [place] [id number] [place] [address] 14129- 6533 Sep, Dyspnea R06.00 ; Other chronic pain G89.29 ; Dysuria R30.0 ; Diaphoresis R61 ; Jaundice R17 ; COPD (chronic obstructive pulmonary disease) J44.9 ; Type 2 diabetes mellitus with unspecified complications E11.8 ; Excessive daytime sleepiness G47.19 and Oliguria R34 [place] [id number] [place] [address] 97452- 4068 Sep, [place] [address] [place] [address] 61760- 9234 Sep, Essential hypertension I10 ; Anxiety associated with depression F41.8 ; Mixed hyperlipidemia E78.2 ; Dyspnea R06.00 ; Shortness of breath R06.02 and Chest pain, unspecified R07.9 [place] [id number] [place] [address] 38632- 7545 Sep, Chest pain R07.9 ; Hyperlipemia E78.5 ; Type 2 diabetes mellitus with unspecified complications E11.8 ; Essential hypertension I10 ; Other chronic pain G89.29 ; Anxiety associated with depression F41.8 ; COPD ( chronic obstructive pulmonary disease) J44.9 ; Low vitamin D level E55.9 ; Tobacco abuse Z72.0 ; Hypertriglyceridemia E78.1 and Abnormal laboratory test R89.9 [place] [id number] [place] [address] 60567- 0921 Aug, Pneumonia J18.9 ; Hypertriglyceridemia E78.1 ; COPD ( chronic obstructive pulmonary disease) J44.9 and Hyperlipidemia E78.5 [place] [id number] [place] [address] 22926- 9064 Aug, Shortness of breath R06.02 ; Anxiety associated with depression F41.8 and Chest pain, unspecified R07.9 [place] [id number] [place] [address] 58447- 0116 Jul, [place] [id number] [place] [address] 19031- 1457 Jun, Anxiety associated with depression F41.8 ; [...] unspecified type R11.2 and Tobacco abuse Z72.0 [place] [id number] [place] [address] 87491- 7990 May, Hyperlipemia E78.5 [place] [id number] [place] [address] 19118- 1876 May, [place] [id number] [place] [address] 22774- 8174 May, Type 2 diabetes mellitus with unspecified complications E11.8 [place] [id number] [place] [address] 94632- 3271 May, [place] [id number] [place] [address] 62212- 8843 May, Anxiety associated with depression F41.8 ; Type 2 diabetes mellitus with unspecified complications E11.8 ; Essential hypertension I10 ; Peripheral neuropathy G62.9 ; Low back pain M54.5 ; Other chronic pain G89.29 ; GERD (gastroesophageal reflux disease) K21.9 ; Insomnia G47.00 ; COPD (chronic obstructive pulmonary disease) J44.9 ; URI (upper respiratory infection) J06.9 and Depression F32.9 [place] [id number] [place] [address] 67250- 4838 May, Low back pain M54.5 ; Anxiety about health F41.8 ; Generalized anxiety disorder F41.1 and Acute stress reaction F43.[address] 52747- 2364 May, [address] 70389- 5664 Apr, Diabetes E11.9 ; Type 2 diabetes mellitus with unspecified complications E11.8 ; Essential hypertension I10 ; Peripheral neuropathy G62.9 ; Low back pain M54.5 ; Other chronic pain G89.29 ; GERD (gastroesophageal reflux disease) K21.9 ; Anxiety associated with depression F41.8 ; Muscle spasm of calf M62.831 ; Insomnia G47.00 and COPD (chronic obstructive pulmonary disease) J44.[address] 16779- 4518 May, [place] [id number] [place] [address] 20158- 0361 May, IMMUNIZATIONS No Known Immunizations SOCIAL HISTORY Never Assessed REASON FOR VISIT PLAN OF CARE VITAL SIGNS MEDICATIONS Unknown [...]
--- OUTSIDE RECORDS SUMMARY | 2018-02-19 17:01 | XMS REPORT ---
Author Author KATIE JEFFRIES Organization [facility] Address [address] [place] [address] Care Team Providers Care Long Chain Beamer Name Role Phone MERVIN KATIE Unavailable PROBLEMS Type Condition ICD9-CM Code LAD91-VF Code Onset Dates Condition Status SNOMED Code Problem Other chronic pain G89.29 Active 76822682 Problem Insomnia G47.00 Active 218288276 Problem Type 2 diabetes mellitus with unspecified complications E11.8 Active 19160418 Problem Constipation by delayed colonic transit K59.01 Active 15766316 Problem Chronic kidney disease (CKD) stage G3b/A1, moderately decreased glomerular filtration rate (GFR) between 30-44 mL/min/1.73 square meter and albuminuria creatinine ratio less than 30 mg/g N18.3 Active 572965684 Problem Mixed hyperlipidemia E78.2 Active 319253696 Problem Controlled substance agreement signed Z79.899 Active 695812782 Problem 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 Active 59575296 Problem Vitamin D deficiency E55.9 Active 36019200 Problem Peripheral neuropathy G62.9 Active 34358110 Problem Essential hypertension I10 Active 01974152 Problem Osteoarthritis of acromioclavicular joint M19.019 Active 682578959 Problem COPD (chronic obstructive pulmonary disease) J44.9 Active 22251202 Problem Anxiety associated with depression F41.8 Active 251237849 Problem GERD (gastroesophageal reflux disease) K21.9 Active [id number] ALLERGIES No Information ENCOUNTERS Encounter Location Date Diagnosis [facility] [id number] [address] Jan, [facility] [id number] [address] Jan, Other chronic pain G89.29 and Anxiety associated with depression F41.8 [facility] [id number] [place] [address] 17875- 4876 Jan, [facility] [id number] [place] [address] 83982- 3931 Dec, [facility] [id number] [place] [address] 21605- 2947 Dec, Type 2 diabetes mellitus with unspecified [...] and 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 [facility] [id number] [place] [address] 24701- 9712 Dec, [address] [facility] [id number] [place] [address] 48392- 2909 Dec, Type 2 diabetes mellitus with unspecified complications E11.8 [facility] [id number] [place] [address] 21449- 7656 Dec, [facility] [id number] [place] [address] 46236- 6566 Dec, Type 2 diabetes mellitus with unspecified complications E11.8 [facility] [id number] [place] [address] 36652- 6550 Dec, Type 2 diabetes mellitus with unspecified complications E11.8 [facility] [id number] [place] [address] 51290- 9756 Dec, [facility] [id number] [place] [address] 64889- 6528 Dec, Type 2 diabetes mellitus with unspecified complications E11.8 [facility] [id number] [place] [address] 56543- 6231 Dec, [facility] [id number] [address] 5[address] Dec, [facility] [address] [facility] [id number] [address] Dec, [facility] [id number] [address] 7926 Dec, [facility] [id number] [address] 0[address] Dec, [facility] [id number] [address] 08[address] Dec, Other chronic pain G89.29 and Anxiety associated with depression F41.8 [facility] [id number] [address] 6281 Dec, Type 2 diabetes mellitus with unspecified complications E11.8 [facility] [id number] [address] 2[address] Nov, [facility] [id number] [address] 3931 Nov, [facility] [id number] [address] 8705 Nov, [facility] [id number] [address] 0370 Nov, [facility] [id number] [address] 4950 Nov, Type 2 diabetes mellitus with unspecified complications E11.8 [facility] [address] [facility] [id number], [place] [address] Nov, [facility] [id number] [address] 9344 Nov, Type 2 diabetes mellitus with unspecified complications E11.8 [facility] [id number] [address] 3345 Nov, Other chronic pain G89.29 and Anxiety associated with depression F41.8 [facility] [address] [facility] [id number] [place] [address] 2546 08 Nov, 2017 Chronic renal insufficiency N18.9 [facility] [id number] [address] 2546 Nov, Other chronic pain G89.29 [facility] [id number] [place] [address] 2546 Nov, Type 2 diabetes mellitus with unspecified complications E11.8 [facility] [address] [facility] [id number] [place] [address]- 1196 October, [facility] [id number] [place] [address]- 1026 October, [facility] [id number] [place] [address]- 2460 October, Type 2 diabetes mellitus with unspecified complications E11.8 [facility] [id number] [address] 3107 October, [facility] [id number] [place] [address]- 1786 October, [facility] [id number] [address] 98[address] October, Type 2 diabetes mellitus with unspecified complications E11.8 [facility] [id number] [address] October, [facility] [id number] [address] 2546 October, [facility] [id number] [address] 0627 October, Type 2 diabetes mellitus with unspecified complications E11.8 [facility] [id number] [address] 2540 October, Type 2 diabetes mellitus with unspecified complications E11.8 ; Essential hypertension I10 ; Chronic renal insufficiency N18.9 ; BMI 40.0-44.9, adult Z68.41 ; Other chronic pain G89.29 ; Anxiety associated with depression F41.8 and Right medial knee pain M25.561 [place] [address] [address] [address]- [address] October, GERD (gastroesophageal reflux disease) K21.9 and Anxiety associated with depression F41.8 [place] [address] 76310- 6968 October, Anxiety associated with depression F41.8 [address] [address] [address]- [address] Sep, [place] [address] 67979- 9840 Sep, GERD (gastroesophageal reflux disease) K21.9 and Anxiety associated with depression F41.8 [address] [address] 98478- 3744 Aug, [place] [address] 25157- 9799 Aug, [facility] [address] [address] Aug, Acute recurrent maxillary sinusitis J01.01 [address] [address] [address] 87764- 2557 Aug, [place] [address] 96786- 4613 Aug, GERD (gastroesophageal reflux disease) K21.9 and Other chronic pain G89.29 [address] [address] 38851- 8425 Aug, [facility] [address] [address] Aug, [place] [address] 67754- 1240 Aug, Controlled substance agreement signed Z79.899 ; [...] and Enlarged lymph nodes in armpit R59.0 [place] [address] 63932- 7639 Aug, Anxiety associated with depression F41.8 and GERD ( gastroesophageal reflux disease) K21.9 [address] [address] 46371- 1875 Jul, Controlled substance agreement signed Z79.899 [address] [address]- 3453 Jun, Anxiety associated with depression F41.8 and GERD ( gastroesophageal reflux disease) K21.9 [address] [address] 10071- 5449 May, Anxiety associated with depression F41.8 and GERD ( gastroesophageal reflux disease) K21.9 [place] [id number] [place] [address] 55516- 7515 Apr, Mixed hyperlipidemia E78.2 [place] [facility] [id number] [place] [address] 19230- 3324 Apr, Anxiety associated with depression F41.8 and GERD ( gastroesophageal reflux disease) K21.9 [place] [id number] [place] [address] 63506- 6469 Apr, [place] [address] 69087- 1583 Apr, Type 2 diabetes mellitus with unspecified complications E11.8 [address] [address] 87028- 4417 Apr, [place] [id number] [place] [address] 86496- 7849 Apr, Type 2 diabetes mellitus with unspecified complications E11.8 [place] [id number] [place] [address] 16161- 9649 Apr, [place] [id number] [place] [address] 65296- 8980 Mar, GERD (gastroesophageal reflux disease) K21.9 and Anxiety associated with depression F41.8 [place] [id number] [place] [address] 39580- 9236 Mar, 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 [place] [id number] [place] [address] 96782- 3159 Mar, Essential hypertension I10 ; Anxiety associated with depression F41.8 ; COPD (chronic obstructive pulmonary disease) J44.9 ; Mixed hyperlipidemia E78.2 ; Vitamin D deficiency E55.9 ; GERD (gastroesophageal reflux disease) K21.9 ; Type 2 diabetes mellitus with unspecified complications E11.8 ; Other chronic pain G89.29 and Chronic renal insufficiency N18.9 [place] [id number] [place] [address] 60448- 2874 Mar, Chronic renal insufficiency N18.9 [place] [id number] [place] [address] 07116- 2024 Feb, GERD (gastroesophageal reflux disease) K21.9 and Type 2 diabetes mellitus with unspecified complications E11.8 [place] [id number] [place] [address] 22898- 0015 Feb, Anxiety associated with depression F41.8 and Tear of left supraspinatus tendon, subsequent encounter S46.812D [place] [id number] [place] [address] 64899- 9001 Jan, Pre-operative examination for internal medicine Z01.818 [address] 98560- 0549 Jan, Anxiety associated with depression F41.8 and Left anterior shoulder pain M25.512 [place] [id number] [place] [address] 00436- 4653 Jan, [place] [id number] [place] [address] 23809- 3938 Jan, [address] [id number] [place] [address] 04361- 8887 Jan, Type 2 diabetes mellitus with unspecified complications E11.8 ; Essential hypertension I10 ; Other chronic pain G89.29 ; GERD ( gastroesophageal reflux disease) K21.9 ; Anxiety associated with depression F41.8 ; Insomnia G47.00 ; Hypertriglyceridemia E78.1 ; Left anterior shoulder pain M25.512 and Tobacco abuse Z72.0 [id number] [place] [address] 30184- 3171 Dec, Anxiety associated with depression F41.8 and Tear of left supraspinatus tendon, subsequent encounter S46.812D [place] [id number] [place] [address] 91957- 2224 Nov, [id number] [place] [address] 29763- 3685 Nov, Anxiety associated with depression F41.8 and Tear of left supraspinatus tendon, subsequent encounter S46.812D [id number] [place] [address] 25716- 4194 Nov, Abnormal lung sounds R09.89 and COPD (chronic obstructive pulmonary disease) with acute bronchitis J44.0 [id number] [place] [address] 13608- 5675 Nov, [id number] [place] [address] 93521- 0618 October, COPD (chronic obstructive pulmonary disease) with acute bronchitis J44.0 ; Abnormal lung sounds R09.89 and Medication refill Z76.[id number] [place] [address] 10257- 3271 October, Anxiety associated with depression F41.8 [address] [id number] [place] [address] 55520- 3658 Sep, Nausea and vomiting, unspecified intactability, vomiting of unspecified type R11.2 [address] [id number] [place] [address] 69732- 6141 Sep, COPD (chronic obstructive pulmonary disease) J44.9 ; Tobacco abuse Z72.0 ; Tear of left supraspinatus tendon, subsequent encounter S46.812D and Type 2 diabetes mellitus with unspecified complications E11.8 [address] [place] [id number] [place] [address] 49762- 9677 Sep, [address] [id number] [place] [address] 35621- 3480 Aug, Left anterior shoulder pain M25.512 [address] [id number] [place] [address] 24562- 1101 Aug, Left anterior shoulder pain M25.512 and Low back pain M54.5 [address] [id number] [place] [address] 11147- 5740 Aug, [address] [id number] [place] [address] 45703- 1406 Aug, [address] [id number] [place] [address] 35962- 5781 Aug, [address] [id number] [place] [address] 01167- 7666 Aug, [address] [id number] [place] [address] 67948- 1400 Aug, Type 2 diabetes mellitus with unspecified complications E11.8 [address] [id number] [place] [address] 36396- 7804 Aug, Type 2 diabetes mellitus with unspecified [...] E55.9 and GERD (gastroesophageal reflux disease) K21.9 [address] [id number] [place] [address] 02478- 9331 Aug, [address] [id number] [place] [address] 68376- 6451 May, [address] [id number] [place] [address] 03363- 7635 Apr, [address] [id number] [place] [address] 57135- 5755 Apr, Type 2 diabetes mellitus with unspecified [...] S49.92XA and Anxiety associated with depression F41.8 [address] [id number] [place] [address] 57485- 3244 Apr, [address] [id number] [place] [address] 27866- 3698 Apr, [address] [id number] [place] [address] 43550- 4810 Apr, [address] [id number] [place] [address] 99081- 0555 Mar, [address] [place] [address]- 8053 Feb, [address] [place] [address]- 7522 Feb, [address] [id number] [place] [address] 61130- 3366 Jan, [address] [id number] [place] [address] 55745- 3248 Jan, [address] [id number] [place] [address] 91627- 9011 Jan, Type 2 diabetes mellitus with unspecified complications E11.8 ; Essential hypertension I10 and Vitamin D deficiency E55.9 [address] [id number] [place] [address] 56429- 6411 Dec, Type 2 diabetes mellitus with unspecified complications E11.8 ; Essential hypertension I10 ; Other chronic pain G89.29 ; Anxiety associated with depression F41.8 ; Bronchitis J40 ; Vitamin D deficiency E55.9 and COPD (chronic obstructive pulmonary disease) J44.9 [address] [id number] [place] [address] 87958- 5257 Nov, [address] [id number] [place] [address] 35238- 0995 October, [address] [id number] [place] [address] 34576- 2037 October, [address] [id number] [place] [address] 97501- 0200 October, [address] [id number] [place] [address] 77345- 7823 October, Dysuria R30.0 ; Bronchitis J40 ; Anxiety associated with depression F41.8 and Type 2 diabetes mellitus with unspecified complications E11.8 [address] [id number] [place] [address] 72942- 3941 October, Chronic renal insufficiency N18.9 ; Elevated white blood cell count D72.829 and Frequent UTI N39.0 [address] [id number] [place] [address] 97658- 6944 October, Chronic renal insufficiency N18.9 ; Elevated white blood cell count D72.829 and Frequent UTI N39.0 [address] [id number] [place] [address] 27252- 6039 October, [place] [id number] [place] [address] 48368- 4172 Sep, Type 2 diabetes mellitus with unspecified complications E11.8 ; Essential hypertension I10 ; COPD (chronic obstructive pulmonary disease ) J44.9 and Hospital discharge follow-up Z09 [place] [id number] [place] [address] 49700- 5509 Sep, [place] [id number] [place] [address] 36607- 5693 Sep, Dyspnea R06.00 ; Other chronic pain G89.29 ; Dysuria R30.0 ; Diaphoresis R61 ; Jaundice R17 ; COPD (chronic obstructive pulmonary disease) J44.9 ; Type 2 diabetes mellitus with unspecified complications E11.8 ; Excessive daytime sleepiness G47.19 and Oliguria R34 [place] [address] [place] [address] 41017- 1722 Sep, [place] [address] [place] [address] 86100- 7123 Sep, Essential hypertension I10 ; Anxiety associated with depression F41.8 ; Mixed hyperlipidemia E78.2 ; Dyspnea R06.00 ; Shortness of breath R06.02 and Chest pain, unspecified R07.9 [address] [address] [place] [address] 90447- 1803 Sep, Chest pain R07.9 ; Hyperlipemia E78.5 ; Type 2 diabetes mellitus with unspecified complications E11.8 ; Essential hypertension I10 ; Other chronic pain G89.29 ; Anxiety associated with depression F41.8 ; COPD ( chronic obstructive pulmonary disease) J44.9 ; Low vitamin D level E55.9 ; Tobacco abuse Z72.0 ; Hypertriglyceridemia E78.1 and Abnormal laboratory test R89.9 [place] [id number] [place] [address] 32958- 9952 Aug, Pneumonia J18.9 ; Hypertriglyceridemia E78.1 ; COPD ( chronic obstructive pulmonary disease) J44.9 and Hyperlipidemia E78.5 [place] [id number] [place] [address] 31687- 5622 Aug, Shortness of breath R06.02 ; Anxiety associated with depression F41.8 and Chest pain, unspecified R07.9 [address] [id number] [place] [address] 89656- 2641 Jul, [id number] [place] [address] 61002- 7283 Jun, Anxiety associated with depression F41.8 ; [...] R11.2 and Tobacco abuse Z72.0 [id number] [place] [address] 35620- 8493 May, Hyperlipemia E78.5 [address] [place] [id number] [place] [address] 47232- 6658 May, [address] [id number] [place] [address] 78146- 1074 May, Type 2 diabetes mellitus with unspecified complications E11.8 [address] [place] [id number] [place] [address] 27738- 1242 May, [address] [place] [id number] [place] [address] 08992- 2222 May, Anxiety associated with depression F41.8 ; Type 2 diabetes mellitus with unspecified complications E11.8 ; Essential hypertension I10 ; Peripheral neuropathy G62.9 ; Low back pain M54.5 ; Other chronic pain G89.29 ; GERD (gastroesophageal reflux disease) K21.9 ; Insomnia G47.00 ; COPD (chronic obstructive pulmonary disease) J44.9 ; URI (upper respiratory infection) J06.9 and Depression F32.9 [place] [id number] [place] [address] 51481- 4582 May, Low back pain M54.5 ; Anxiety about health F41.8 ; Generalized anxiety disorder F41.1 and Acute stress reaction F43.[address] 53553- 8902 May, [address] 73597- 3603 Apr, Diabetes E11.9 ; Type 2 diabetes mellitus with unspecified complications E11.8 ; Essential hypertension I10 ; Peripheral neuropathy G62.9 ; Low back pain M54.5 ; Other chronic pain G89.29 ; GERD (gastroesophageal reflux disease) K21.9 ; Anxiety associated with depression F41.8 ; Muscle spasm of calf M62.831 ; Insomnia G47.00 and COPD (chronic obstructive pulmonary disease) J44.[address] 93414- 4164 May, [address] [place] [id number] [place] [address] 74249- 8881 May, IMMUNIZATIONS No Known Immunizations SOCIAL HISTORY Never Assessed REASON FOR VISIT Controlled med refill and FYI PLAN OF CARE VITAL SIGNS MEDICATIONS Medication Instructions Dosage Frequency Start Date End Date Duration Status Hydrocodone-Acetaminophen 5-325 MG Orally twice a day 1 tablet as needed 12h 10 Oct, 2017 28 days Active RESULTS No Results PROCEDURES [...]
--- OUTSIDE RECORDS SUMMARY | 2018-02-19 17:02 | XMS REPORT ---
Author Author KATIE JEFFRIES Organization [facility], [place] Address [address] [place] [address] Care Team Providers Care Tip Tester Name Role Phone JEFFRIESJONO BerriosELE Unavailable PROBLEMS Type Condition ICD9-CM Code CMA30-SV Code Onset Dates Condition Status SNOMED Code Problem Other chronic pain G89.29 Active 97880616 Problem Insomnia G47.00 Active 649423080 Problem Type 2 diabetes mellitus with unspecified complications E11.8 Active 46914644 Problem Constipation by delayed colonic transit K59.01 Active 94177407 Problem Chronic kidney disease (CKD) stage G3b/A1, moderately decreased glomerular filtration rate (GFR) between 30-44 mL/min/1.73 square meter and albuminuria creatinine ratio less than 30 mg/g N18.3 Active 607158549 Problem Mixed hyperlipidemia E78.2 Active 275707329 Problem Controlled substance agreement signed Z79.899 Active 463192916 Problem 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 Active 54840949 Problem Vitamin D deficiency E55.9 Active 60185541 Problem Peripheral neuropathy G62.9 Active 95943280 Problem Essential hypertension I10 Active 89066421 Problem Osteoarthritis of acromioclavicular joint M19.019 Active 357575785 Problem COPD (chronic obstructive pulmonary disease) J44.9 Active 82437044 Problem Anxiety associated with depression F41.8 Active 999687323 Problem GERD (gastroesophageal reflux disease) K21.9 Active 138445443 ALLERGIES Substance Reaction Event Type Date Status Cymbalta suicidal thoughts Drug Allergy October, Active Crestor anger Drug Allergy October, Active ENCOUNTERS Encounter Location Date Diagnosis [facility], [place] [address] [facility] [id number] [address] Jan, [facility] [place] [address] [facility] [id number], [place] [address] Jan, Other chronic pain G89.29 and Anxiety associated with depression F41.8 [place] [id number] [place] [address]29- 1963 Jan, [place] [address] [place] [id number] [place] [address] 53232- 2968 Dec, [place] [address] [place] [id number] [place] [address] 63043- 8301 Dec, Type 2 diabetes mellitus with [...] and 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 [place] [address] [place] [id number] [place] [address] 06702- 6673 Dec, [place] [address] [place] [id number] [place] [address] 49449- 7897 Dec, Type 2 diabetes mellitus with unspecified complications E11.8 [place] [address] [place] [id number] [place] [address] 14064- 9034 Dec, [place] [address] [place] [id number] [place] [address] 18225- 4996 Dec, Type 2 diabetes mellitus with unspecified complications E11.8 [place] [address] [place] [id number] [place] [address] 68699- 3567 Dec, Type 2 diabetes mellitus with unspecified complications E11.8 [place] [address] [place] [id number] [place] [address] 20792- 9238 Dec, [place] [address] [place] [id number] [place] [address] 50957- 1859 Dec, Type 2 diabetes mellitus with unspecified complications E11.8 [place] [address] [place] [id number] [place] [address] 62443- 6022 Dec, [facility], [place] [address] [address] Dec, [facility], [place] [address] [address] 4[address] Dec, [facility], [place] [address] [address] 5106 Dec, [facility], [place] [address] [address] Dec, [facility], [place] [address] [address] 0958 Dec, Other chronic pain G89.29 and Anxiety associated with depression F41.8 [facility], [place] [address] [address] 5036 Dec, Type 2 diabetes mellitus with unspecified complications E11.8 [facility], [place] [address], [place] [address] 7706 Nov, [facility], [place] [address], [place] [address] 7967 Nov, [facility], [place] [address] [address] 0259 Nov, [facility] [place] [address], [place] [address] 8198 Nov, [facility] [place] [address] [address] 6992 Nov, Type 2 diabetes mellitus with unspecified complications E11.8 [facility] [place] [address] [address] 2613 Nov, [facility] [place] [address], [place] [address] 4998 Nov, Type 2 diabetes mellitus with unspecified complications E11.8 [facility] [place] [address] [address] 8286 Nov, Other chronic pain G89.29 and Anxiety associated with depression F41.8 [facility] [place] [address] [place] [id number] [place] [address] 81722- 2418 08 Nov, 2017 Chronic renal insufficiency N18.9 [facility] [place] [address], [place] [address] 7811 07 Nov, 2017 Other chronic pain G89.29 [facility] [place] [address] [place] [id number] [place] [address] 64754- 8414 Nov, Type 2 diabetes mellitus with unspecified complications E11.8 [facility] [place] [address] [place] [address] 37870- 5316 October, [facility] [place] [address] [place] [id number] [place] [address] 23310- 0345 October, [facility] [place] [address] [address] [id number] [place] [address] 14204- 4034 October, Type 2 diabetes mellitus with unspecified complications E11.8 [facility] [place] [address], [place] [address] 0980 October, [facility] [place] [address] [place] [id number] [place] [address] 87642- 2315 October, [facility], [place] [address], [place] [address] 4143 October, Type 2 diabetes mellitus with unspecified complications E11.8 [facility] [place] [address], [place] [address] 7478 October, [facility] [place] [address], [place] [address] 8254 October, [facility] [place] [id number] [place] [address] 15228- 6027 October, Type 2 diabetes mellitus with unspecified complications E11.8 [facility] [place] [address], [place] [address] 0959 October, Type 2 diabetes mellitus with unspecified complications E11.8 ; Essential hypertension I10 ; Chronic renal insufficiency N18.9 ; BMI 40.0-44.9, adult Z68.41 ; Other chronic pain G89.29 ; Anxiety associated with depression F41.8 and Right medial knee pain M25.561 [facility] [place] [address] [place] [id number] [place] [address] 63469- 2966 October, GERD (gastroesophageal reflux disease) K21.9 and Anxiety associated with depression F41.8 [place] [id number] [place] [id number] [place] [address] 17709- 6788 October, Anxiety associated with depression F41.8 [place] [address] 14066- 2403 Sep, [place] [address] 70072- 2169 Sep, GERD (gastroesophageal reflux disease) K21.9 and Anxiety associated with depression F41.8 [place] [address] [place] [id number] [place] [address] 25572- 9060 Aug, [place] [address] 99048- 3250 Aug, [facility] [address] [place] [id number] [place] [address] 96170 -6069 Aug, Acute recurrent maxillary sinusitis J01.01 [place] [address] [place] [id number] [place] [address] 59669- 2756 Aug, [place] [address] [place] [id number] [place] [address] 99517- 6437 Aug, GERD (gastroesophageal reflux disease) K21.9 and Other chronic pain G89.29 [place] [address] [place] [id number] [place] [address] 10194- 3825 Aug, [facility] [address] [place] [address] [id number] [place] [address] 26893 -5582 Aug, [facility], [place] [address], [place] [address]- 4341 Aug, Controlled substance agreement signed Z79.899 ; [...] and Enlarged lymph nodes in armpit R59.0 [place] [address] [place] [address] [id number] [place] [address] 34571- 4110 Aug, Anxiety associated with depression F41.8 and GERD ( gastroesophageal reflux disease) K21.9 [place] [address] [place] [id number] [place] [address] 90432- 8384 Jul, Controlled substance agreement signed Z79.899 [place] [address] [place] [id number] [place] [address] 70650- 3704 Jun, Anxiety associated with depression F41.8 and GERD ( gastroesophageal reflux disease) K21.9 [place] [address] [place] [id number] [place] [address] 80898- 0300 May, Anxiety associated with depression F41.8 and GERD ( gastroesophageal reflux disease) K21.9 [place] [address] [place] [address] 80925- 2968 Apr, Mixed hyperlipidemia E78.2 [place] [address] [place] [id number] [place] [address] 95491- 5549 Apr, Anxiety associated with depression F41.8 and GERD ( gastroesophageal reflux disease) K21.9 [place] [address] [place] [address] 29622- 2275 Apr, [place] [address] [place] [address] 58591- 7700 Apr, Type 2 diabetes mellitus with unspecified complications E11.8 [place] [address] [place] [id number] [place] [address] 51473- 8212 Apr, [place] [address] [place] [id number] [place] [address] 49956- 6724 Apr, Type 2 diabetes mellitus with unspecified complications E11.8 [place] [address] [place] [id number] [place] [address] 49200- 3478 Apr, [place] [address] 34458- 2533 Mar, GERD (gastroesophageal reflux disease) K21.9 and Anxiety associated with depression F41.8 [place] [address] 76114- 6211 Mar, 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 [place] [id number] [place] [address] 08142- 4046 Mar, Essential hypertension I10 ; Anxiety associated with depression F41.8 ; COPD (chronic obstructive pulmonary disease) J44.9 ; Mixed hyperlipidemia E78.2 ; Vitamin D deficiency E55.9 ; GERD (gastroesophageal reflux disease) K21.9 ; Type 2 diabetes mellitus with unspecified complications E11.8 ; Other chronic pain G89.29 and Chronic renal insufficiency N18.9 [place] [address] [place] [id number] [place] [address] 29408- 1801 Mar, Chronic renal insufficiency N18.9 [place] [address] [place] [id number] [place] [address] 74926- 1962 Feb, GERD (gastroesophageal reflux disease) K21.9 and Type 2 diabetes mellitus with unspecified complications E11.8 [place] [address] [place] [id number] [place] [address] 21836- 2411 Feb, Anxiety associated with depression F41.8 and Tear of left supraspinatus tendon, subsequent encounter S46.812D [place] [address] [place] [id number] [place] [address] 63809- 5299 Jan, Pre-operative examination for internal medicine Z01.818 [place] [address] [place] [address] 62574- 2879 Jan, Anxiety associated with depression F41.8 and Left anterior shoulder pain M25.512 [place] [address] [place] [id number] [place] [address] 47325- 5124 Jan, [place] [address] [place] [id number] [place] [address] 04695- 5157 Jan, [place] [address] [place] [id number] [place] [address] 32802- 7883 Jan, Type 2 diabetes mellitus with unspecified complications E11.8 ; Essential hypertension I10 ; Other chronic pain G89.29 ; GERD ( gastroesophageal reflux disease) K21.9 ; Anxiety associated with depression F41.8 ; Insomnia G47.00 ; Hypertriglyceridemia E78.1 ; Left anterior shoulder pain M25.512 and Tobacco abuse Z72.0 [place] [address] [place] [id number] [place] [address] 24577- 5923 Dec, Anxiety associated with depression F41.8 and Tear of left supraspinatus tendon, subsequent encounter S46.812D [place] [address] [place] [id number] [place] [address] 52281- 3194 Nov, [place] [address] [place] [id number] [place] [address] 61775- 3133 Nov, Anxiety associated with depression F41.8 and Tear of left supraspinatus tendon, subsequent encounter S46.812D [place] [address] [place] [address] 34084- 0939 Nov, Abnormal lung sounds R09.89 and COPD (chronic obstructive pulmonary disease) with acute bronchitis J44.0 [place] [address] [place] [address] 86382- 6425 Nov, [place] [address] [place] [id number] [place] [address] 84205- 3313 October, COPD (chronic obstructive pulmonary disease) with acute bronchitis J44.0 ; Abnormal lung sounds R09.89 and Medication refill Z76.0 [place] [address] [place] [id number] [place] [address] 37330- 0393 October, Anxiety associated with depression F41.8 [place] [address] [place] [id number] [place] [address] 23990- 0965 17 Sep, 2016 Nausea and vomiting, unspecified intactability, vomiting of unspecified type R11.2 [place] [address] [place] [id number] [place] [address] 41689- 3545 10 Sep, 2016 COPD (chronic obstructive pulmonary disease) J44.9 ; Tobacco abuse Z72.0 ; Tear of left supraspinatus tendon, subsequent encounter S46.812D and Type 2 diabetes mellitus with unspecified complications E11.8 [place] [address] [place] [id number] [place] [address] 54051- 1867 Sep, [place] [address] [place] [id number] [place] [address] 23400- 3157 30 Aug, 2016 Left anterior shoulder pain M25.512 [place] [address] [place] [id number] [place] [address] 67270- 1975 Aug, Left anterior shoulder pain M25.512 and Low back pain M54.5 [place] [address] [place] [id number] [place] [address] 06056- 7919 Aug, [place] [address] [place] [id number] [place] [address] 91044- 6273 Aug, [facility] [place] [address] [place] [id number] [place] [address] 60283- 0030 Aug, [place] [address] [place] [id number] [place] [address] 58632- 0950 Aug, [facility] [place] [address] [place] [id number] [place] [address] 85907- 8893 Aug, Type 2 diabetes mellitus with unspecified complications E11.8 [place] [address] [place] [id number] [place] [address] 90657- 2672 Aug, Type 2 diabetes mellitus with unspecified [...] E55.9 and GERD (gastroesophageal reflux disease) K21.9 [place] [address] [place] [id number] [place] [address] 23252- 7385 Aug, [place] [address] [place] [id number] [place] [address] 64155- 6379 May, [place] [address] [place] [id number] [place] [address] 22200- 5525 Apr, [place] [address] [place] [id number] [place] [address] 15770- 2760 Apr, Type 2 diabetes mellitus with unspecified [...] S49.92XA and Anxiety associated with depression F41.8 [place] [address] [place] [address] 01310- 5860 Apr, [place] [address] [place] [id number] [place] [address] 31069- 7443 Apr, [place] [address] [place] [id number] [place] [address] 39813- 2287 Apr, [place] [address] [place] [id number] [place] [address] 59884- 7137 Mar, [place] [address] [place] [address] [address]- 3611 Feb, [facility] [place] [address], [place] [address]- 7475 Feb, [facility] [place] [address], [place] [address]- 0181 Jan, [place] [address], [place] [address]- 2088 Jan, [place] [address] [place] [id number] [place] [address] 31062- 5786 Jan, Type 2 diabetes mellitus with unspecified complications E11.8 ; Essential hypertension I10 and Vitamin D deficiency E55.9 [place] [address] [place] [address] 75949- 5408 Dec, Type 2 diabetes mellitus with unspecified complications E11.8 ; Essential hypertension I10 ; Other chronic pain G89.29 ; Anxiety associated with depression F41.8 ; Bronchitis J40 ; Vitamin D deficiency E55.9 and COPD (chronic obstructive pulmonary disease) J44.9 [place] [address] [address]- 2842 Nov, [place] [address], [place] [address]- 2275 October, [place] [address], [place] [address]- 2903 October, [place] [address], [place] [address]- 8317 October, [place] [address], [place] [address]- 8875 October, Dysuria R30.0 ; Bronchitis J40 ; Anxiety associated with depression F41.8 and Type 2 diabetes mellitus with unspecified complications E11.8 [place] [address], [place] [address]- 6015 October, Chronic renal insufficiency N18.9 ; Elevated white blood cell count D72.829 and Frequent UTI N39.0 [place] [address] [place] [id number] [place] [address] 01928- 0550 October, Chronic renal insufficiency N18.9 ; Elevated white blood cell count D72.829 and Frequent UTI N39.0 [place] [address] [place] [id number] [place] [address] 02909- 3460 October, [place] [address] 03476- 2118 Sep, Type 2 diabetes mellitus with unspecified complications E11.8 ; Essential hypertension I10 ; COPD (chronic obstructive pulmonary disease ) J44.9 and Hospital discharge follow-up Z09 [place] [address] 09123- 2197 Sep, [place] [address] 08669- 9343 Sep, Dyspnea R06.00 ; Other chronic pain G89.29 ; Dysuria R30.0 ; Diaphoresis R61 ; Jaundice R17 ; COPD (chronic obstructive pulmonary disease) J44.9 ; Type 2 diabetes mellitus with unspecified complications E11.8 ; Excessive daytime sleepiness G47.19 and Oliguria R34 [place] [address] [place] [id number] [place] [address] 46514- 4502 Sep, [place] [address] [place] [id number] [place] [address] 48580- 1914 Sep, Essential hypertension I10 ; Anxiety associated with depression F41.8 ; Mixed hyperlipidemia E78.2 ; Dyspnea R06.00 ; Shortness of breath R06.02 and Chest pain, unspecified R07.9 [place] [id number] [place] [address] 69232- 5644 Sep, Chest pain R07.9 ; Hyperlipemia E78.5 ; Type 2 diabetes mellitus with unspecified complications E11.8 ; Essential hypertension I10 ; Other chronic pain G89.29 ; Anxiety associated with depression F41.8 ; COPD ( chronic obstructive pulmonary disease) J44.9 ; Low vitamin D level E55.9 ; Tobacco abuse Z72.0 ; Hypertriglyceridemia E78.1 and Abnormal laboratory test R89.9 [place] [address] 59891- 8888 Aug, Pneumonia J18.9 ; Hypertriglyceridemia E78.1 ; COPD ( chronic obstructive pulmonary disease) J44.9 and Hyperlipidemia E78.[address] 18624- 7264 Aug, Shortness of breath R06.02 ; Anxiety associated with depression F41.8 and Chest pain, unspecified R07.[address] 95514- 4601 Jul, [place] [address] 48832- 7599 Jun, Anxiety associated with depression F41.8 ; [...] unspecified type R11.2 and Tobacco abuse Z72.0 [place] [address] [place] [id number] [place] [address] 60018- 9637 May, Hyperlipemia E78.5 [place] [address] [place] [id number] [place] [address] 13669- 8802 May, [place] [address] [place] [id number] [place] [address] 38538- 4759 May, Type 2 diabetes mellitus with unspecified complications E11.8 [place] [address] [place] [id number] [place] [address] 02225- 6695 May, [place] [address] 78057- 2327 May, Anxiety associated with depression F41.8 ; Type 2 diabetes mellitus with unspecified complications E11.8 ; Essential hypertension I10 ; Peripheral neuropathy G62.9 ; Low back pain M54.5 ; Other chronic pain G89.29 ; GERD (gastroesophageal reflux disease) K21.9 ; Insomnia G47.00 ; COPD (chronic obstructive pulmonary disease) J44.9 ; URI (upper respiratory infection) J06.9 and Depression F32.9 [place] [address] 43417- 3245 May, Low back pain M54.5 ; Anxiety about health F41.8 ; Generalized anxiety disorder F41.1 and Acute stress reaction F43.0 [place] [address] 11760- 0149 May, [address] 87259- 4306 Apr, Diabetes E11.9 ; Type 2 diabetes mellitus with unspecified complications E11.8 ; Essential hypertension I10 ; Peripheral neuropathy G62.9 ; Low back pain M54.5 ; Other chronic pain G89.29 ; GERD (gastroesophageal reflux disease) K21.9 ; Anxiety associated with depression F41.8 ; Muscle spasm of calf M62.831 ; Insomnia G47.00 and COPD (chronic obstructive pulmonary disease) J44.9 [place] [address] 22592- 7472 May, [address] 54557- 7258 May, IMMUNIZATIONS No Known Immunizations SOCIAL HISTORY Never Assessed REASON FOR VISIT knee pain-follow up for knee pain, complications with rotator cuff surgery, shortness of breath.- terrence PLAN OF CARE Activity Details Follow Up 3 Months, prn Reason:CHM/DM VITAL SIGNS Height 65 in 2017-10-19 Weight 243.0 lbs 2017-10-19 Temperature 98.7 degrees Fahrenheit 2017-10-19 Heart Rate 120 bpm 2017-10-19 Respiratory Rate 20 2017-10-19 BMI 40.43 kg/m2 2017-10-19 Blood pressure systolic 130 mmHg 2017-10-19 Blood pressure diastolic 80 mmHg 2017-10-19 MEDICATIONS Medication Instructions Dosage Frequency Start Date End Date Duration Status Aspirin 325 MG Orally Once a day 1 tablet 24h Active Metoprolol Tartrate 25 MG Orally Once a day 1 tablet 24h 90 days Active Fenofibrate 160 MG Orally Once a day 1 tablet with a meal 24h May, 90 days Active NovoLog Flexpen 100 UNIT/ML Subcutaneous 3 times a day 5 units three times with meals 8h October, 12 months Active Hydrocodone-Acetaminophen 5-325 MG Orally twice a day 1 tablet as needed 12h October, Active Torsemide 20 mg Orally Once a day 1 tablet 24h October, 90 days Active Paroxetine HCl 20 mg Orally 2 times a day 1 tablet 12h Sep, 90 days Active Baclofen 10 mg Orally 2 times a day 1 tablet with food or milk 12h 90 days Active Albuterol Sulfate (2.5 MG/3ML) 0.083% Inhalation Three times a day PRN 3 ml 30 days Active Xanax 0.5 MG Orally 3 times a day PRN 1 tablet Active Benazepril HCl 5 mg Orally Once a day 1 tablet 24h Sep, 90 days Active Protonix 40 MG Orally Once a day 1 tablet 24h Feb, 90 days Active Neurontin 300 MG Orally twice a day 1 capsule before bedtime 12h 90 days Active Advair Diskus 250-50 MCG/DOSE Inhalation Twice a day 1 puff 12h Sep, 12 months Active Zofran ODT 8 MG Orally every 8 hrs as directed 8h Aug, 30 days Active ProAir HFA 108 (90 Base) MCG/ACT Inhalation every 4 hrs 2 puffs as needed 4h 20 Nov, 2016 12 months Active Levemir Flexpen 100 UNIT/ML Subcutaneous 2 times a day 15 units twice a day 12h October, 12 months Active ReliOn Blood Glucose Test - as directed Sep, Active Singulair 10 mg Orally Once a day 1 tablet in the evening 24h 90 days Active Metamucil 0.52 GM Orally Three times a day 2 capsules with 8 ounces of liquid 8h Active Fish Oil 1200 MG Orally Once a day 1 capsule 24h Active Spiriva HandiHaler 18 mcg Inhalation Once a day INHALE THE CONTENTS OF 1 CAPSULE VIA INHALATION DEVICE EVERY DAY 24h 30 Active RESULTS Name Result Date Reference [facility] : Kidneys 2017-10-26 PROCEDURES No Known procedures INSTRUCTIONS MEDICATIONS ADMINISTERED [...]
--- OUTSIDE RECORDS SUMMARY | 2018-02-19 17:02 | XMS REPORT ---
Author Author KATIE JEFFRIES Organization [facility] Address [address] [place] [address] Care Team Providers Care Cathode [employer] Processor Name Role Phone MERVIN KATIE Unavailable PROBLEMS Type Condition ICD9-CM Code [id number]-TE Code Onset Dates Condition Status SNOMED Code Problem Other chronic pain G89.29 Active 58676075 Problem Insomnia G47.00 Active 960552095 Problem Type 2 diabetes mellitus with unspecified complications E11.8 Active 05610465 Problem Constipation by delayed colonic transit K59.01 Active 73779442 Problem Chronic kidney disease (CKD) stage G3b/A1, moderately decreased glomerular filtration rate (GFR) between 30-44 mL/min/1.73 square meter and albuminuria creatinine ratio less than 30 mg/g N18.3 Active 528934999 Problem Mixed hyperlipidemia E78.2 Active 249308672 Problem Controlled substance agreement signed Z79.899 Active 144012592 Problem 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 Active 82721021 Problem Vitamin D deficiency E55.9 Active 67832400 Problem Peripheral neuropathy G62.9 Active 27555359 Problem Essential hypertension I10 Active 31404673 Problem Osteoarthritis of acromioclavicular joint M19.019 Active 646854147 Problem COPD (chronic obstructive pulmonary disease) J44.9 Active 75831314 Problem Anxiety associated with depression F41.8 Active 046062087 Problem GERD (gastroesophageal reflux disease) K21.9 Active 953696211 ALLERGIES No Information ENCOUNTERS Encounter Location Date Diagnosis [facility] [id number] [address] Jan, [facility] [address] [address] Jan, Other chronic pain G89.29 and Anxiety associated with depression F41.8 [facility] [id number] [place] [address] 08888- 7144 Jan, [facility] [id number] [place] [address] 13848- 5043 Dec, [facility] [id number] [place] [address] 06522- 0823 Dec, Type 2 diabetes mellitus with unspecified [...] loss of right eye H54.61 [place] [id number] [place] [address] 68856- 9531 Dec, [place] [id number] [place] [address] 85973- 6539 Dec, Type 2 diabetes mellitus with unspecified complications E11.8 [facility] [id number] [place] [address] 71551- 3498 Dec, [facility] [id number] [place] [address] 54487- 1795 Dec, Type 2 diabetes mellitus with unspecified complications E11.8 [facility] [id number] [place] [address] 55433- 3089 Dec, Type 2 diabetes mellitus with unspecified complications E11.8 [facility] [id number] [place] [address] 10629- 9520 Dec, [facility] [id number] [place] [address] 24353- 7470 Dec, Type 2 diabetes mellitus with unspecified complications E11.8 [facility] [id number] [place] [address] 48881- 6980 Dec, [facility] [id number] [address] 00[address] Dec, [facility] [address] [facility] [id number] [address] Dec, [facility] [id number] [address] 5926 Dec, [facility] [address] [address] 2768 Dec, [facility] [id number] [address] 6[address] Dec, Other chronic pain G89.29 and Anxiety associated with depression F41.8 [facility] [id number] [address] 2132 Dec, Type 2 diabetes mellitus with unspecified complications E11.8 [facility] [address] [address] 8307 Nov, [facility] [address] [address]- 0685 Nov, [facility] [address] [address] 9714 Nov, [facility] [id number] [address] 4552 Nov, [facility] [id number] [address] Nov, Type 2 diabetes mellitus with unspecified complications E11.8 [facility] [address] [facility] [id number] [address] Nov, [facility] [id number] [address] 0878 Nov, Type 2 diabetes mellitus with unspecified complications E11.8 [facility] [id number] [address] 1227 Nov, Other chronic pain G89.29 and Anxiety associated with depression F41.8 [facility] [address] [facility] [facility] [id number] [place] [address] 2546 08 Nov, 2017 Chronic renal insufficiency N18.9 [facility] [id number] [place] [address] 2546 Nov, Other chronic pain G89.29 [facility] [id number] [place] [address] 2546 Nov, Type 2 diabetes mellitus with unspecified complications E11.8 [facility] [address] [facility] [id number] [place] [address]- 0206 October, [facility] [id number] [place] [address]- 7936 October, [facility] [id number] [place] [address]- 1444 October, Type 2 diabetes mellitus with unspecified complications E11.8 [facility] [address] [address] 8733 October, [facility] [id number] [place] [address]- 1552 October, [facility] [address] [address]- 0983 October, Type 2 diabetes mellitus with unspecified complications E11.8 [facility] [address] [address]- 2666 October, [facility] [id number] [address]- 2546 October, [facility] [id number] [address]- 1072 October, Type 2 diabetes mellitus with unspecified complications E11.8 [facility] [id number] [place] [address]- 2540 October, Type 2 diabetes mellitus with unspecified complications E11.8 ; Essential hypertension I10 ; Chronic renal insufficiency N18.9 ; BMI 40.0-44.9, adult Z68.41 ; Other chronic pain G89.29 ; Anxiety associated with depression F41.8 and Right medial knee pain M25.561 [place] [address] 8[address]99- 2638 October, GERD (gastroesophageal reflux disease) K21.9 and Anxiety associated with depression F41.8 [place] [address] 02368- 0997 October, Anxiety associated with depression F41.8 [place] [address] 27632- 8033 Sep, [place] [address] 35317- 6782 Sep, GERD (gastroesophageal reflux disease) K21.9 and Anxiety associated with depression F41.8 [place] [address] 86347- 6502 Aug, [place] [address] 20548- 4672 Aug, [facility] [address] [address] -[address] Aug, Acute recurrent maxillary sinusitis J01.01 [place] [address] 69487- 8257 Aug, [place] [address] 08261- 9005 Aug, GERD (gastroesophageal reflux disease) K21.9 and Other chronic pain G89.29 [place] [address] 49228- 7738 Aug, [facility] [address] 87381 -[address]62 Aug, [place] [address] 41934- 0649 Aug, Controlled substance agreement signed Z79.899 ; [...] and Enlarged lymph nodes in armpit R59.0 [place] [address] 80530- 9962 Aug, Anxiety associated with depression F41.8 and GERD ( gastroesophageal reflux disease) K21.9 [place] [address] 57404- 5827 Jul, Controlled substance agreement signed Z79.899 [place] [address] 02036- 9111 Jun, Anxiety associated with depression F41.8 and GERD ( gastroesophageal reflux disease) K21.9 [place] [address] 89601- 5573 May, Anxiety associated with depression F41.8 and GERD ( gastroesophageal reflux disease) K21.9 [place] [id number] [place] [address] 02495- 4965 Apr, Mixed hyperlipidemia E78.2 [place] [id number] [place] [address] 47088- 3979 Apr, Anxiety associated with depression F41.8 and GERD ( gastroesophageal reflux disease) K21.9 [place] [id number] [place] [address] 08355- 1334 Apr, [place] [address] 67492- 1725 Apr, Type 2 diabetes mellitus with unspecified complications E11.8 [place] [address] 50387- 4241 Apr, [place] [id number] [place] [address] 19310- 6904 Apr, Type 2 diabetes mellitus with unspecified complications E11.8 [place] [id number] [place] [address] 78915- 3025 Apr, [place] [id number] [place] [address] 44009- 5833 Mar, GERD (gastroesophageal reflux disease) K21.9 and Anxiety associated with depression F41.8 [place] [id number] [place] [address] 41481- 6794 Mar, 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 [place] [id number] [place] [address] 90921- 2786 Mar, Essential hypertension I10 ; Anxiety associated with depression F41.8 ; COPD (chronic obstructive pulmonary disease) J44.9 ; Mixed hyperlipidemia E78.2 ; Vitamin D deficiency E55.9 ; GERD (gastroesophageal reflux disease) K21.9 ; Type 2 diabetes mellitus with unspecified complications E11.8 ; Other chronic pain G89.29 and Chronic renal insufficiency N18.9 [place] [id number] [place] [address] 04487- 6239 Mar, Chronic renal insufficiency N18.9 [place] [id number] [place] [address] 15523- 9669 Feb, GERD (gastroesophageal reflux disease) K21.9 and Type 2 diabetes mellitus with unspecified complications E11.8 [place] [id number] [place] [address] 18991- 5644 Feb, Anxiety associated with depression F41.8 and Tear of left supraspinatus tendon, subsequent encounter S46.812D [place] [id number] [place] [address] 49786- 1310 Jan, Pre-operative examination for internal medicine Z01.818 [place] [address] 62344- 7104 Jan, Anxiety associated with depression F41.8 and Left anterior shoulder pain M25.512 [place] [id number] [place] [address] 13575- 2302 Jan, [place] [id number] [place] [address] 03374- 2372 Jan, [place] [id number] [place] [address] 07679- 1460 Jan, Type 2 diabetes mellitus with unspecified complications E11.8 ; Essential hypertension I10 ; Other chronic pain G89.29 ; GERD ( gastroesophageal reflux disease) K21.9 ; Anxiety associated with depression F41.8 ; Insomnia G47.00 ; Hypertriglyceridemia E78.1 ; Left anterior shoulder pain M25.512 and Tobacco abuse Z72.0 [address] [id number] [place] [address] 92831- 6764 Dec, Anxiety associated with depression F41.8 and Tear of left supraspinatus tendon, subsequent encounter S46.812D [place] [id number] [place] [address] 19618- 3766 Nov, [place] [id number] [place] [address] 01823- 1429 Nov, Anxiety associated with depression F41.8 and Tear of left supraspinatus tendon, subsequent encounter S46.812D [address] [place] [id number] [place] [address] 78222- 4414 Nov, Abnormal lung sounds R09.89 and COPD (chronic obstructive pulmonary disease) with acute bronchitis J44.0 [address] [id number] [place] [address] 34335- 9912 Nov, [place] [id number] [place] [address] 29781- 1799 October, COPD (chronic obstructive pulmonary disease) with acute bronchitis J44.0 ; Abnormal lung sounds R09.89 and Medication refill Z76.[id number] [place] [address] 20272- 5595 October, Anxiety associated with depression F41.8 [place] [id number] [place] [address] 04154- 4212 Sep, Nausea and vomiting, unspecified intactability, vomiting of unspecified type R11.2 [place] [id number] [place] [address] 19938- 5911 Sep, COPD (chronic obstructive pulmonary disease) J44.9 ; Tobacco abuse Z72.0 ; Tear of left supraspinatus tendon, subsequent encounter S46.812D and Type 2 diabetes mellitus with unspecified complications E11.8 [place] [id number] [place] [address] 00596- 9433 Sep, [place] [id number] [place] [address] 74667- 0605 Aug, Left anterior shoulder pain M25.512 [place] [id number] [place] [address] 28144- 9983 Aug, Left anterior shoulder pain M25.512 and Low back pain M54.5 [place] [id number] [place] [address] 48437- 8456 Aug, [place] [id number] [place] [address] 55319- 0688 Aug, [place] [id number] [place] [address] 84857- 5672 Aug, [place] [id number] [place] [address] 01833- 4514 Aug, [place] [id number] [place] [address] 60369- 8134 Aug, Type 2 diabetes mellitus with unspecified complications E11.8 [place] [id number] [place] [address] 94818- 0243 Aug, Type 2 diabetes mellitus with unspecified [...] GERD (gastroesophageal reflux disease) K21.9 [place] [id number] [place] [address] 34423- 9113 Aug, [place] [id number] [place] [address] 17929- 7908 May, [place] [id number] [place] [address] 23642- 9558 Apr, [place] [id number] [place] [address] 42872- 0410 Apr, Type 2 diabetes mellitus with unspecified [...] Anxiety associated with depression F41.8 [place] [address] [place] [address] 15335- 4912 Apr, [place] [id number] [place] [address] 44057- 6904 Apr, [place] [id number] [place] [address] 29147- 2387 Apr, [place] [id number] [place] [address] 60712- 4512 Mar, [place] [address] [address]- 0965 Feb, [place] [address] [address]- 9548 Feb, [place] [id number] [place] [address] 57180- 3881 Jan, [place] [id number] [place] [address] 44965- 1903 Jan, [place] [id number] [place] [address] 13671- 0172 Jan, Type 2 diabetes mellitus with unspecified complications E11.8 ; Essential hypertension I10 and Vitamin D deficiency E55.9 [place] [id number] [place] [address] 92796- 7432 Dec, Type 2 diabetes mellitus with unspecified complications E11.8 ; Essential hypertension I10 ; Other chronic pain G89.29 ; Anxiety associated with depression F41.8 ; Bronchitis J40 ; Vitamin D deficiency E55.9 and COPD (chronic obstructive pulmonary disease) J44.9 [place] [id number] [place] [address] 06698- 9982 Nov, [place] [id number] [place] [address] 97243- 3715 October, [place] [id number] [place] [address] 17850- 5765 October, [place] [id number] [place] [address] 82072- 1220 October, [place] [id number] [place] [address] 86390- 0100 October, Dysuria R30.0 ; Bronchitis J40 ; Anxiety associated with depression F41.8 and Type 2 diabetes mellitus with unspecified complications E11.8 [place] [id number] [place] [address] 62671- 0471 October, Chronic renal insufficiency N18.9 ; Elevated white blood cell count D72.829 and Frequent UTI N39.0 [place] [id number] [place] [address] 16559- 7763 October, Chronic renal insufficiency N18.9 ; Elevated white blood cell count D72.829 and Frequent UTI N39.0 [place] [address] [place] [address] 54550- 6205 October, [place] [id number] [place] [address] 86115- 8611 Sep, Type 2 diabetes mellitus with unspecified complications E11.8 ; Essential hypertension I10 ; COPD (chronic obstructive pulmonary disease ) J44.9 and Hospital discharge follow-up Z09 [place] [id number] [place] [address] 22007- 1431 Sep, [place] [id number] [place] [address] 23776- 7731 Sep, Dyspnea R06.00 ; Other chronic pain G89.29 ; Dysuria R30.0 ; Diaphoresis R61 ; Jaundice R17 ; COPD (chronic obstructive pulmonary disease) J44.9 ; Type 2 diabetes mellitus with unspecified complications E11.8 ; Excessive daytime sleepiness G47.19 and Oliguria R34 [place] [address] [place] [address] 23241- 3828 Sep, [place] [address] [place] [address] 51230- 4093 Sep, Essential hypertension I10 ; Anxiety associated with depression F41.8 ; Mixed hyperlipidemia E78.2 ; Dyspnea R06.00 ; Shortness of breath R06.02 and Chest pain, unspecified R07.9 [place] [address] [place] [address] 72228- 4998 Sep, Chest pain R07.9 ; Hyperlipemia E78.5 ; Type 2 diabetes mellitus with unspecified complications E11.8 ; Essential hypertension I10 ; Other chronic pain G89.29 ; Anxiety associated with depression F41.8 ; COPD ( chronic obstructive pulmonary disease) J44.9 ; Low vitamin D level E55.9 ; Tobacco abuse Z72.0 ; Hypertriglyceridemia E78.1 and Abnormal laboratory test R89.9 [place] [address] [place] [address] 49303- 7617 Aug, Pneumonia J18.9 ; Hypertriglyceridemia E78.1 ; COPD ( chronic obstructive pulmonary disease) J44.9 and Hyperlipidemia E78.5 [place] [id number] [place] [address] 21878- 9243 Aug, Shortness of breath R06.02 ; Anxiety associated with depression F41.8 and Chest pain, unspecified R07.9 [place] [id number] [place] [address] 23822- 0153 Jul, [place] [id number] [place] [address] 71760- 0338 Jun, Anxiety associated with depression F41.8 ; [...] unspecified type R11.2 and Tobacco abuse Z72.0 [place] [id number] [place] [address] 44661- 0467 May, Hyperlipemia E78.5 [place] [id number] [place] [address] 25046- 0118 May, [place] [id number] [place] [address] 04579- 4045 May, Type 2 diabetes mellitus with unspecified complications E11.8 [place] [id number] [place] [address] 29525- 2154 May, [place] [id number] [place] [address] 33863- 0600 May, Anxiety associated with depression F41.8 ; Type 2 diabetes mellitus with unspecified complications E11.8 ; Essential hypertension I10 ; Peripheral neuropathy G62.9 ; Low back pain M54.5 ; Other chronic pain G89.29 ; GERD (gastroesophageal reflux disease) K21.9 ; Insomnia G47.00 ; COPD (chronic obstructive pulmonary disease) J44.9 ; URI (upper respiratory infection) J06.9 and Depression F32.9 [place] [id number] [place] [address] 33816- 2373 May, Low back pain M54.5 ; Anxiety about health F41.8 ; Generalized anxiety disorder F41.1 and Acute stress reaction F43.0 [place] [address] 78668- 4153 May, [address] 30103- 3291 Apr, Diabetes E11.9 ; Type 2 diabetes mellitus with unspecified complications E11.8 ; Essential hypertension I10 ; Peripheral neuropathy G62.9 ; Low back pain M54.5 ; Other chronic pain G89.29 ; GERD (gastroesophageal reflux disease) K21.9 ; Anxiety associated with depression F41.8 ; Muscle spasm of calf M62.831 ; Insomnia G47.00 and COPD (chronic obstructive pulmonary disease) J44.[address] 84138- 5308 May, [place] [id number] [place] [address] 60591- 0370 May, IMMUNIZATIONS No Known Immunizations SOCIAL HISTORY Never Assessed REASON FOR VISIT Levemir increase PLAN OF CARE VITAL SIGNS MEDICATIONS Medication Instructions Dosage Frequency Start Date End Date Duration Status Levemir Flexpen 100 UNIT/ML Subcutaneous 2 times a day 20 units twice a day 12h 10 Oct, 2017 Active RESULTS No Results PROCEDURES No Known [...]
--- OUTSIDE RECORDS SUMMARY | 2018-02-19 17:03 | XMS REPORT ---
Author Author KATIE JEFFRIES Organization [facility] Address [address] [place] [address] Care Team Providers Care Supervisor [employer] Name Role Phone KATIE JEFFRIES Unavailable PROBLEMS Type Condition ICD9-CM Code KZK50-BT Code Onset Dates Condition Status SNOMED Code Problem COPD (chronic obstructive pulmonary disease) J44.9 Active 66619173 Problem Low back pain M54.5 Active 520764791 Problem GERD (gastroesophageal reflux disease) K21.9 Active 893860999 Problem Chronic renal insufficiency N18.9 Active 061523211 Problem Vitamin D deficiency E55.9 Active 22087410 Problem Type 2 diabetes mellitus with unspecified complications E11.8 Active 59491272 Problem Other chronic pain G89.29 Active 92504031 Problem Mixed hyperlipidemia E78.2 Active 116699571 Problem Controlled substance agreement signed Z79.899 Active 064288366 Problem Anxiety associated with depression F41.8 Active 434909992 Problem Peripheral neuropathy G62.9 Active 28863097 Problem Mild sleep apnea G47.30 Active 06186575 Problem Essential hypertension I10 Active 45320977 Problem Osteoarthritis of acromioclavicular joint M19.019 Active 796852763 Problem Insomnia G47.00 Active 173449509 ALLERGIES No Information ENCOUNTERS Encounter Location Date Diagnosis [facility] [address] [facility] [id number], [place] [address] Dec, [facility] [address] [facility] [id number], [place] [address] Dec, [facility] [address] [id number] [address] Dec, Type 2 diabetes mellitus with unspecified complications E11.8 [facility] [address] [facility] [id number], [place] [address] Dec, [place] [id number] [place] [address] Dec, Type 2 diabetes mellitus with unspecified complications E11.8 [facility] [id number] [place] [address] Dec, Type 2 diabetes mellitus with unspecified complications E11.8 [facility] [id number] [place] [address] Dec, [facility] [id number] [place] [address] Dec, Type 2 diabetes mellitus with unspecified complications E11.8 [facility] [id number] [place] [address] 5931 Dec, [facility] [id number] [place] [address]89 Dec, [facility] [id number] [place] [address] Dec, [facility] [id number] [place] [address] 0939 Dec, [facility] [id number] [place] [address] Dec, [facility] [id number] [place] [address] Dec, Other chronic pain G89.29 and Anxiety associated with depression F41.8 [facility] [id number] [place] [address] 48[address] Dec, Type 2 diabetes mellitus with unspecified complications E11.8 [facility] [id number] [place] [address] 3517 Nov, [facility] [id number] [place] [address]- 0942 Nov, [facility] [id number] [place] [address] 4700 Nov, [facility] [id number], [place] [address] 4083 Nov, [facility] [address], [place] [address] 3606 Nov, Type 2 diabetes mellitus with unspecified complications E11.8 [facility] [id number] [address] 1747 Nov, [facility] [address] [id number], [place] [address] Nov, Type 2 diabetes mellitus with unspecified complications E11.8 [facility] [address] [place] [id number] [place] [address] 69881- 9932 Nov, Other chronic pain G89.29 and Anxiety associated with depression F41.8 [facility] [address], [place] [address] 08 Nov, 2017 Chronic renal insufficiency N18.9 [facility] [address], [place] [address] 6[address] 07 Nov, 2017 Other chronic pain G89.29 [facility] [address], [place] [address]- 7889 Nov, Type 2 diabetes mellitus with unspecified complications E11.8 [facility] [address], [place] [address] 8528 October, [facility] [address], [place] [address]- 2032 October, [facility] [address], [place] [address] 0509 October, Type 2 diabetes mellitus with unspecified complications E11.8 [facility] [address], [place] [address] 0224 October, [facility] [id number], [place] [address]- 9672 October, [facility] [address], [place] [address]- 1099 October, Type 2 diabetes mellitus with unspecified complications E11.8 [facility] [id number] [place] [address] 58136- 8185 October, [facility] [id number] [place] [address] 80170- 3594 October, [facility] [address] [id number] [place] [address] 16972- 5688 October, Type 2 diabetes mellitus with unspecified complications E11.8 [place] [address] [place] [address] [id number] [place] [address] 76731- 1468 October, Type 2 diabetes mellitus with unspecified complications E11.8 ; Essential hypertension I10 ; Chronic renal insufficiency N18.9 ; BMI 40.0-44.9, adult Z68.41 ; Other chronic pain G89.29 ; Anxiety associated with depression F41.8 and Right medial knee pain M25.561 [facility] [address] [place] [id number] [place] [address] 72198- 2309 October, GERD (gastroesophageal reflux disease) K21.9 and Anxiety associated with depression F41.8 [facility] [address] [place] [address] [id number] [place] [address] 43701- 9323 October, Anxiety associated with depression F41.8 [place] [id number] [place] [address] 81582- 8786 Sep, [facility] [address] [place] [id number] [place] [address] 51973- 9694 Sep, GERD (gastroesophageal reflux disease) K21.9 and Anxiety associated with depression F41.8 [place] [address] [place] [id number] [place] [address] 55170- 8645 Aug, [facility] [address] [place] [address] [id number] [place] [address] 00197- 0030 Aug, [facility] [id number] [place] [address]7085 -7155 Aug, Acute recurrent maxillary sinusitis J01.01 [facility] [address], [place] [address]- 8405 Aug, [facility] [id number] [place] [address] 40601- 4386 Aug, GERD (gastroesophageal reflux disease) K21.9 and Other chronic pain G89.29 [facility] [address] [place] [address] [id number] [place] [address] 59437- 0498 Aug, [facility] [address], [place] [address] Aug, [facility] [id number] [place] [address] 81228- 7194 Aug, Controlled substance agreement signed Z79.899 ; [...] and Enlarged lymph nodes in armpit R59.0 [facility] [address], [place] [address]- 9464 Aug, Anxiety associated with depression F41.8 and GERD ( gastroesophageal reflux disease) K21.9 [facility] [id number], [place] [address]- 0054 Jul, Controlled substance agreement signed Z79.899 [place] [address] [place] [id number] [place] [address] 28870- 6388 Jun, Anxiety associated with depression F41.8 and GERD ( gastroesophageal reflux disease) K21.9 [place] [address], [place] [address]- 8487 May, Anxiety associated with depression F41.8 and GERD ( gastroesophageal reflux disease) K21.9 [place] [address] [place] [address] [id number] [place] [address] 92274- 3569 Apr, Mixed hyperlipidemia E78.2 [place] [address] [place] [address] [id number] [place] [address] 58788- 2646 Apr, Anxiety associated with depression F41.8 and GERD ( gastroesophageal reflux disease) K21.9 [place] [address] [place] [id number] [place] [address] 77692- 8083 Apr, [place] [address] [place] [id number] [place] [address] 71587- 5916 Apr, Type 2 diabetes mellitus with unspecified complications E11.8 [place] [address] [place] [id number] [place] [address] 29436- 6663 Apr, [place] [address] [place] [id number] [place] [address] 22149- 0270 Apr, Type 2 diabetes mellitus with unspecified complications E11.8 [place] [address] [place] [id number] [place] [address] 58181- 4718 Apr, [place] [address] [place] [id number] [place] [address] 98397- 4396 Mar, GERD (gastroesophageal reflux disease) K21.9 and Anxiety associated with depression F41.8 [place] [address] [place] [id number] [place] [address] 94641- 8547 Mar, 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 [place] [address] [place] [id number] [place] [address] 53374- 3854 Mar, Essential hypertension I10 ; Anxiety associated with depression F41.8 ; COPD (chronic obstructive pulmonary disease) J44.9 ; Mixed hyperlipidemia E78.2 ; Vitamin D deficiency E55.9 ; GERD (gastroesophageal reflux disease) K21.9 ; Type 2 diabetes mellitus with unspecified complications E11.8 ; Other chronic pain G89.29 and Chronic renal insufficiency N18.9 [place] [address] [id number], [place] [address]- 9937 Mar, Chronic renal insufficiency N18.9 [place] [address] [place] [id number] [place] [address] 93028- 5032 Feb, GERD (gastroesophageal reflux disease) K21.9 and Type 2 diabetes mellitus with unspecified complications E11.8 [place] [address] [place] [address] [id number] [place] [address] 20400- 3851 Feb, Anxiety associated with depression F41.8 and Tear of left supraspinatus tendon, subsequent encounter S46.812D [place] [address] [place] [address] [id number] [place] [address] 07747- 3332 Jan, Pre-operative examination for internal medicine Z01.818 [place] [address] [place] [address] [id number] [place] [address] 33901- 6126 Jan, Anxiety associated with depression F41.8 and Left anterior shoulder pain M25.512 [place] [address] [place] [id number] [place] [address] 62642- 4284 Jan, [place] [address] [place] [address] [id number] [place] [address] 50613- 0504 Jan, [place] [address] [place] [id number] [place] [address] 21670- 2026 Jan, Type 2 diabetes mellitus with unspecified complications E11.8 ; Essential hypertension I10 ; Other chronic pain G89.29 ; GERD ( gastroesophageal reflux disease) K21.9 ; Anxiety associated with depression F41.8 ; Insomnia G47.00 ; Hypertriglyceridemia E78.1 ; Left anterior shoulder pain M25.512 and Tobacco abuse Z72.0 [place] [address] [place] [address] [id number] [place] [address] 95541- 4707 Dec, Anxiety associated with depression F41.8 and Tear of left supraspinatus tendon, subsequent encounter S46.812D [place] [address] [place] [address] [id number] [place] [address] 81708- 7740 Nov, [place] [address], [place] [address]- 5670 14 Nov, 2016 Anxiety associated with depression F41.8 and Tear of left supraspinatus tendon, subsequent encounter S46.812D [place] [address] [place] [address] [id number] [place] [address] 54112- 6869 05 Nov, 2016 Abnormal lung sounds R09.89 and COPD (chronic obstructive pulmonary disease) with acute bronchitis J44.0 [place] [address] [place] [address] [id number] [place] [address] 38730- 2753 Nov, [place] [id number] [place] [address] 97187- 6830 October, COPD (chronic obstructive pulmonary disease) with acute bronchitis J44.0 ; Abnormal lung sounds R09.89 and Medication refill Z76.0 [place] [id number] [place] [address] 92749- 5961 October, Anxiety associated with depression F41.8 [place] [address] [place] [id number] [place] [address] 53777- 6385 17 Sep, 2016 Nausea and vomiting, unspecified intactability, vomiting of unspecified type R11.2 [place] [id number] [place] [address] 18204- 9596 10 Sep, 2016 COPD (chronic obstructive pulmonary disease) J44.9 ; Tobacco abuse Z72.0 ; Tear of left supraspinatus tendon, subsequent encounter S46.812D and Type 2 diabetes mellitus with unspecified complications E11.8 [place] [id number] [place] [address] 97418- 2872 Sep, [place] [id number] [place] [address] 00715- 8797 Aug, Left anterior shoulder pain M25.512 [place] [address] [place] [id number] [place] [address] 47574- 3945 Aug, Left anterior shoulder pain M25.512 and Low back pain M54.5 [place] [address]- 9593 Aug, [place] [address], [place] [address]- 7436 Aug, [place] [address], [place] [address]- 5533 Aug, [place] [address] [place] [address] [id number] [place] [address] 88976- 8095 Aug, [place] [id number] [place] [address] 83084- 0604 Aug, Type 2 diabetes mellitus with unspecified complications E11.8 [place] [address] [place] [id number] [place] [address] 88866- 8362 Aug, Type 2 diabetes mellitus with unspecified [...] E55.9 and GERD (gastroesophageal reflux disease) K21.9 [place] [address], [place] [address]- 4770 Aug, [place] [address], [place] [address]- 3448 May, [place] [address] [place] [id number] [place] [address] 06153- 6952 Apr, [place] [address] [place] [address] [id number] [place] [address] 78447- 0568 Apr, Type 2 diabetes mellitus with unspecified [...] S49.92XA and Anxiety associated with depression F41.8 [facility] [address], [place] [address]- 3136 Apr, [facility] [address], [place] [address]- 0630 Apr, [facility] [id number], [place] [address]- 1745 Apr, [facility] [address], [place] [address]- 9794 Mar, [facility] [id number] [place] [address] 77057- 8543 Feb, [facility] [id number], [place] [address]- 1182 Feb, [facility] [address], [place] [address]- 8074 Jan, [facility] [address], [place] [address]- 9332 Jan, [facility] [address], [place] [address]- 6350 Jan, Type 2 diabetes mellitus with unspecified complications E11.8 ; Essential hypertension I10 and Vitamin D deficiency E55.9 [facility] [address], [place] [address]- 3890 Dec, Type 2 diabetes mellitus with unspecified complications E11.8 ; Essential hypertension I10 ; Other chronic pain G89.29 ; Anxiety associated with depression F41.8 ; Bronchitis J40 ; Vitamin D deficiency E55.9 and COPD (chronic obstructive pulmonary disease) J44.9 [facility] [address], [place] [address]- 2184 Nov, [facility] [address], [place] [address]- 6343 October, [place] [address], [place] [address]- 7499 October, [place] [address] [place] [id number] [place] [address] 80472- 9333 October, [place] [address] [place] [id number] [place] [address] 33099- 6094 October, Dysuria R30.0 ; Bronchitis J40 ; Anxiety associated with depression F41.8 and Type 2 diabetes mellitus with unspecified complications E11.8 [place] [address] [place] [id number] [place] [address] 49396- 5936 October, Chronic renal insufficiency N18.9 ; Elevated white blood cell count D72.829 and Frequent UTI N39.0 [place] [address] [place] [address] [place] [address] 11238- 8201 October, Chronic renal insufficiency N18.9 ; Elevated white blood cell count D72.829 and Frequent UTI N39.0 [place] [address] [place] [address] 49550- 2114 October, [place] [address] [place] [address] [place] [address] 15153- 4459 Sep, Type 2 diabetes mellitus with unspecified complications E11.8 ; Essential hypertension I10 ; COPD (chronic obstructive pulmonary disease ) J44.9 and Hospital discharge follow-up Z09 [place] [address] [place] [address] 45349- 2778 Sep, [place] [address] [place] [id number] [place] [address] 01755- 1475 Sep, Dyspnea R06.00 ; Other chronic pain G89.29 ; Dysuria R30.0 ; Diaphoresis R61 ; Jaundice R17 ; COPD (chronic obstructive pulmonary disease) J44.9 ; Type 2 diabetes mellitus with unspecified complications E11.8 ; Excessive daytime sleepiness G47.19 and Oliguria R34 [place] [id number] [place] [address] 74024- 4522 Sep, [place] [id number] [place] [address] 36074- 3352 Sep, Essential hypertension I10 ; Anxiety associated with depression F41.8 ; Mixed hyperlipidemia E78.2 ; Dyspnea R06.00 ; Shortness of breath R06.02 and Chest pain, unspecified R07.9 [place] [id number] [place] [address] 75171- 0433 Sep, Chest pain R07.9 ; Hyperlipemia E78.5 ; Type 2 diabetes mellitus with unspecified complications E11.8 ; Essential hypertension I10 ; Other chronic pain G89.29 ; Anxiety associated with depression F41.8 ; COPD ( chronic obstructive pulmonary disease) J44.9 ; Low vitamin D level E55.9 ; Tobacco abuse Z72.0 ; Hypertriglyceridemia E78.1 and Abnormal laboratory test R89.9 [place] [id number] [place] [address] 77575- 5891 Aug, Pneumonia J18.9 ; Hypertriglyceridemia E78.1 ; COPD ( chronic obstructive pulmonary disease) J44.9 and Hyperlipidemia E78.5 [place] [id number] [place] [address] 25254- 9382 Aug, Shortness of breath R06.02 ; Anxiety associated with depression F41.8 and Chest pain, unspecified R07.9 [place] [id number] [place] [address] 33184- 8656 Jul, [place] [id number] [place] [address] 58711- 7942 Jun, Anxiety associated with depression F41.8 ; [...] unspecified type R11.2 and Tobacco abuse Z72.0 [place] [address], [place] [address]- 9296 May, Hyperlipemia E78.5 [place] [id number] [place] [address] 01757- 8258 May, [place] [address] [place] [id number] [place] [address] 63383- 4585 May, Type 2 diabetes mellitus with unspecified complications E11.8 [place] [address] [place] [id number] [place] [address] 19536- 0996 May, [place] [id number] [place] [address] 83398- 3381 May, Anxiety associated with depression F41.8 ; Type 2 diabetes mellitus with unspecified complications E11.8 ; Essential hypertension I10 ; Peripheral neuropathy G62.9 ; Low back pain M54.5 ; Other chronic pain G89.29 ; GERD (gastroesophageal reflux disease) K21.9 ; Insomnia G47.00 ; COPD (chronic obstructive pulmonary disease) J44.9 ; URI (upper respiratory infection) J06.9 and Depression F32.9 [place] [id number] [place] [address] 35780- 1454 May, Low back pain M54.5 ; Anxiety about health F41.8 ; Generalized anxiety disorder F41.1 and Acute stress reaction F43.0 [address] [place] [address] 72715- 8914 May, [place] [id number] [place] [address] 86670- 8347 Apr, Diabetes E11.9 ; Type 2 diabetes mellitus with unspecified complications E11.8 ; Essential hypertension I10 ; Peripheral neuropathy G62.9 ; Low back pain M54.5 ; Other chronic pain G89.29 ; GERD (gastroesophageal reflux disease) K21.9 ; Anxiety associated with depression F41.8 ; Muscle spasm of calf M62.831 ; Insomnia G47.00 and COPD (chronic obstructive pulmonary disease) J44.9 [place] [address] [facility] [id number] [place] [address]- 7875 May, [facility] [address] [facility] [id number] [place] [address]- 5268 May, IMMUNIZATIONS No Known Immunizations SOCIAL HISTORY Never Assessed REASON FOR VISIT eye exam PLAN OF CARE VITAL SIGNS MEDICATIONS Unknown [...] Tear of left infraspinatus tendon, subsequent encounter Surgical History section x 3 Surgical History hernia repair Surgical History hysterectomy Surgical History Heart cath 11/24/2015 Surgical History rotator cuff 04/24/17 Hospitalization History surgeries Hospitalization History Acute Renal Failure, Ecaxerbation COPD, Hyponatremia 10/02/15 Hospitalization History COPD x 3 days 03/14/2017
--- OUTSIDE RECORDS SUMMARY | 2018-02-19 17:03 | XMS REPORT ---
Author Author KATIE JEFFRIES Organization [facility] Address [address] [place] [address] Care Team Providers Care Liturgical Music Director Name Role Phone MERVINJONOKATIE Unavailable PROBLEMS Type Condition ICD9-CM Code AWE13-KN Code Onset Dates Condition Status SNOMED Code Problem Other chronic pain G89.29 Active 42345530 Problem Insomnia G47.00 Active 861575421 Problem Type 2 diabetes mellitus with unspecified complications E11.8 Active 64775467 Problem Constipation by delayed colonic transit K59.01 Active 54216672 Problem Chronic kidney disease (CKD) stage G3b/A1, moderately decreased glomerular filtration rate (GFR) between 30-44 mL/min/1.73 square meter and albuminuria creatinine ratio less than 30 mg/g N18.3 Active 608349496 Problem Mixed hyperlipidemia E78.2 Active 659196413 Problem Controlled substance agreement signed Z79.899 Active 513283283 Problem 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 [id number] [address] Jan, [facility] [id number] [address] Dec, [facility] [address] [facility] [id number], [place] [address] Dec, Type 2 diabetes mellitus with unspecified [...] and 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 [facility] [id number] [place] [address] 60604- 6839 Dec, [facility] [address] [id number] [address] Dec, Type 2 diabetes mellitus with unspecified complications E11.8 [facility] [address] [id number] [address] 85[address] Dec, [facility] [id number] [address] Dec, Type 2 diabetes mellitus with unspecified complications E11.8 [facility] [address] [address]60 Dec, Type 2 diabetes mellitus with unspecified complications E11.8 [facility] [address], [place] [address] Dec, [facility] [address] [address] 3609 Dec, Type 2 diabetes mellitus with unspecified complications E11.8 [facility] [address] [address] 8112 Dec, [facility] [id number] [address] 5451 Dec, [facility] [id number] [address] 8436 Dec, [facility] [id number] [address] 7651 Dec, [facility] [address], [place] [address] 17[address] Dec, [facility] [address] [address] 8096 Dec, Other chronic pain G89.29 and Anxiety associated with depression F41.8 [facility] [address] [address] 60[address] 03 Dec, 2017 Type 2 diabetes mellitus with unspecified complications E11.8 [facility] [address] [facility] [id number] [address] Nov, [facility] [address] [place] [address] 86019- 0201 Nov, [facility] [address], [place] [address] 4902 Nov, [facility] [address], [place] [address] 47[address] Nov, [facility] [address] [address] 8378 Nov, Type 2 diabetes mellitus with unspecified complications E11.8 [facility] [address], [place] [address]- 0868 Nov, [facility] [address], [place] [address] 8044 Nov, Type 2 diabetes mellitus with unspecified complications E11.8 [facility] [address], [place] [address] 5726 Nov, Other chronic pain G89.29 and Anxiety associated with depression F41.8 [facility] [address] [address] 08 Nov, 2017 Chronic renal insufficiency N18.9 [facility] [address], [place] [address]- 2686 07 Nov, 2017 Other chronic pain G89.29 [facility] [address], [place] [address] 6923 Nov, Type 2 diabetes mellitus with unspecified complications E11.8 [facility] [address] [address] 6[address] October, [facility] [address], [place] [address] 4460 October, [facility] [id number] [address] 0967 October, Type 2 diabetes mellitus with unspecified complications E11.8 [facility] [address], [place] [address]- 6855 October, [facility] [id number] [address] 3626 October, [facility] [id number] [address] 8051 October, Type 2 diabetes mellitus with unspecified complications E11.8 [facility] [address], [place] [address]- 2236 October, [facility] [address], [place] [address]- 7122 October, [facility] [address], [place] [address]- 9435 October, Type 2 diabetes mellitus with unspecified complications E11.8 [facility] [address], [place] [address]- 0554 October, Type 2 diabetes mellitus with unspecified complications E11.8 ; Essential hypertension I10 ; Chronic renal insufficiency N18.9 ; BMI 40.0-44.9, adult Z68.41 ; Other chronic pain G89.29 ; Anxiety associated with depression F41.8 and Right medial knee pain M25.561 [facility] [address], [place] [address] October, GERD (gastroesophageal reflux disease) K21.9 and Anxiety associated with depression F41.8 [facility] [address] [place] [address] 09208- 1694 October, Anxiety associated with depression F41.8 [facility] [id number] [place] [address] 53365- 4844 Sep, [facility] [id number] [place] [address] 52889- 7885 Sep, GERD (gastroesophageal reflux disease) K21.9 and Anxiety associated with depression F41.8 [facility] [id number] [place] [address]- 8011 Aug, [place] [id number] [place] [address] 75594- 5678 Aug, [facility] [id number] [place] [address] 84962 -2711 Aug, Acute recurrent maxillary sinusitis J01.01 [facility] [id number] [place] [address] 92120- 5021 Aug, [facility] [id number] [place] [address] 26157- 7348 Aug, GERD (gastroesophageal reflux disease) K21.9 and Other chronic pain G89.29 [facility] [id number] [place] [address] 58246- 0719 Aug, [facility] [id number] [place] [address] 38154 -4170 Aug, [facility] [address] [place] [address] 00841- 8576 Aug, Controlled substance agreement signed Z79.899 ; [...] and Enlarged lymph nodes in armpit R59.0 [place] [address] [address]- 5626 Aug, Anxiety associated with depression F41.8 and GERD ( gastroesophageal reflux disease) K21.9 [place] [address] 94216- 6377 Jul, Controlled substance agreement signed Z79.899 [place] [address] 63825- 2994 Jun, Anxiety associated with depression F41.8 and GERD ( gastroesophageal reflux disease) K21.9 [place] [address] 13899- 0482 May, Anxiety associated with depression F41.8 and GERD ( gastroesophageal reflux disease) K21.9 [place] [address] 49186- 9429 Apr, Mixed hyperlipidemia E78.2 [place] [address] 19002- 4439 Apr, Anxiety associated with depression F41.8 and GERD ( gastroesophageal reflux disease) K21.9 [place] [id number] [place] [address] 45964- 9614 Apr, [place] [address] 75701- 0370 Apr, Type 2 diabetes mellitus with unspecified complications E11.8 [place] [address] 63026- 2443 Apr, [place] [address] 78129- 9228 Apr, Type 2 diabetes mellitus with unspecified complications E11.8 [place] [address] 59383- 4238 Apr, [place] [address] [place] [address] 34134- 2188 Mar, GERD (gastroesophageal reflux disease) K21.9 and Anxiety associated with depression F41.8 [place] [id number] [place] [address] 07742- 8038 Mar, 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 [place] [address] 97946- 0514 Mar, Essential hypertension I10 ; Anxiety associated with depression F41.8 ; COPD (chronic obstructive pulmonary disease) J44.9 ; Mixed hyperlipidemia E78.2 ; Vitamin D deficiency E55.9 ; GERD (gastroesophageal reflux disease) K21.9 ; Type 2 diabetes mellitus with unspecified complications E11.8 ; Other chronic pain G89.29 and Chronic renal insufficiency N18.9 [id number] [place] [address] 78748- 5364 Mar, Chronic renal insufficiency N18.9 [place] [id number] [place] [address] 84126- 0825 Feb, GERD (gastroesophageal reflux disease) K21.9 and Type 2 diabetes mellitus with unspecified complications E11.8 [place] [id number] [place] [address] 12506- 1482 Feb, Anxiety associated with depression F41.8 and Tear of left supraspinatus tendon, subsequent encounter S46.812D [place] [id number] [place] [address] 22341- 0805 Jan, Pre-operative examination for internal medicine Z01.818 [id number] [place] [address] 07353- 6003 Jan, Anxiety associated with depression F41.8 and Left anterior shoulder pain M25.512 [place] [id number] [place] [address] 26723- 5045 Jan, [id number] [place] [address] 52797- 1322 Jan, [place] [id number] [place] [address] 05750- 1766 Jan, Type 2 diabetes mellitus with unspecified complications E11.8 ; Essential hypertension I10 ; Other chronic pain G89.29 ; GERD ( gastroesophageal reflux disease) K21.9 ; Anxiety associated with depression F41.8 ; Insomnia G47.00 ; Hypertriglyceridemia E78.1 ; Left anterior shoulder pain M25.512 and Tobacco abuse Z72.0 [place] [id number] [place] [address] 73906- 1889 Dec, Anxiety associated with depression F41.8 and Tear of left supraspinatus tendon, subsequent encounter S46.812D [place] [id number] [place] [address] 73601- 1154 Nov, [address] 52527- 7679 Nov, Anxiety associated with depression F41.8 and Tear of left supraspinatus tendon, subsequent encounter S46.812D [place] [id number] [place] [address] 01078- 5849 Nov, Abnormal lung sounds R09.89 and COPD (chronic obstructive pulmonary disease) with acute bronchitis J44.0 [place] [id number] [place] [address] 22517- 8649 Nov, [place] [id number] [place] [address] 33780- 8927 October, COPD (chronic obstructive pulmonary disease) with acute bronchitis J44.0 ; Abnormal lung sounds R09.89 and Medication refill Z76.0 [place] [id number] [place] [address] 22750- 2053 October, Anxiety associated with depression F41.8 [place] [id number] [place] [address] 30456- 2839 Sep, Nausea and vomiting, unspecified intactability, vomiting of unspecified type R11.2 [place] [id number] [place] [address] 90468- 6317 10 Sep, 2016 COPD (chronic obstructive pulmonary disease) J44.9 ; Tobacco abuse Z72.0 ; Tear of left supraspinatus tendon, subsequent encounter S46.812D and Type 2 diabetes mellitus with unspecified complications E11.8 [place] [id number] [place] [address] 09379- 8486 Sep, [place] [id number] [place] [address] 75140- 6221 Aug, Left anterior shoulder pain M25.512 [place] [address] 50078- 1348 Aug, Left anterior shoulder pain M25.512 and Low back pain M54.5 [place] [id number] [place] [address] 96623- 0664 Aug, [place] [id number] [place] [address] 23142- 2575 Aug, [place] [id number] [place] [address] 28122- 8300 Aug, [place] [id number] [place] [address] 63291- 3626 Aug, [place] [id number] [place] [address] 06246- 1504 Aug, Type 2 diabetes mellitus with unspecified complications E11.8 [place] [id number] [place] [address] 27986- 6860 Aug, Type 2 diabetes mellitus with unspecified [...] E55.9 and GERD (gastroesophageal reflux disease) K21.9 [facility] [id number] [place] [address] 57930- 1163 Aug, [facility] [id number] [place] [address] 43707- 4673 May, [facility] [id number] [place] [address] 54154- 3429 Apr, [facility] [id number] [place] [address] 07866- 9261 Apr, Type 2 diabetes mellitus with unspecified [...] S49.92XA and Anxiety associated with depression F41.8 [facility] [id number] [place] [address] 92720- 6619 Apr, [facility] [id number] [place] [address] 82473- 0292 Apr, [facility] [id number] [place] [address] 01408- 8550 Apr, [facility] [id number] [place] [address] 35364- 2092 Mar, [facility] [id number] [place] [address] 50374- 4434 Feb, [facility] [id number] [place] [address] 25638- 7213 Feb, [facility] [id number] [place] [address] 684446- 3872 Jan, [facility] [id number] [place] [address] 72420- 2566 Jan, [facility] [address], [place] [address]- 6600 Jan, Type 2 diabetes mellitus with unspecified complications E11.8 ; Essential hypertension I10 and Vitamin D deficiency E55.9 [facility] [address], [place] [address]- 0513 Dec, Type 2 diabetes mellitus with unspecified complications E11.8 ; Essential hypertension I10 ; Other chronic pain G89.29 ; Anxiety associated with depression F41.8 ; Bronchitis J40 ; Vitamin D deficiency E55.9 and COPD (chronic obstructive pulmonary disease) J44.9 [place] [id number] [place] [address] 18353- 4096 Nov, [place] [id number] [place] [address] 43184- 1911 October, [place] [id number] [place] [address] 27610- 7960 October, [place] [address], [place] [address]- 9642 October, [place] [id number] [place] [address] 09458- 1501 October, Dysuria R30.0 ; Bronchitis J40 ; Anxiety associated with depression F41.8 and Type 2 diabetes mellitus with unspecified complications E11.8 [place] [address], [place] [address]- 6275 October, Chronic renal insufficiency N18.9 ; Elevated white blood cell count D72.829 and Frequent UTI N39.0 [place] [address], [place] [address]- 1497 October, Chronic renal insufficiency N18.9 ; Elevated white blood cell count D72.829 and Frequent UTI N39.0 [place] [address], [place] [address]- 1029 October, [place] [id number] [place] [address] 91618- 8697 Sep, Type 2 diabetes mellitus with unspecified complications E11.8 ; Essential hypertension I10 ; COPD (chronic obstructive pulmonary disease ) J44.9 and Hospital discharge follow-up Z09 [place] [id number] [place] [address] 03696- 2464 Sep, [address] 35908- 2576 Sep, Dyspnea R06.00 ; Other chronic pain G89.29 ; Dysuria R30.0 ; Diaphoresis R61 ; Jaundice R17 ; COPD (chronic obstructive pulmonary disease) J44.9 ; Type 2 diabetes mellitus with unspecified complications E11.8 ; Excessive daytime sleepiness G47.19 and Oliguria R34 [address] 05731- 1347 Sep, [address] 30334- 3168 Sep, Essential hypertension I10 ; Anxiety associated with depression F41.8 ; Mixed hyperlipidemia E78.2 ; Dyspnea R06.00 ; Shortness of breath R06.02 and Chest pain, unspecified R07.9 [place] [id number] [place] [address] 50228- 0952 Sep, Chest pain R07.9 ; Hyperlipemia E78.5 ; Type 2 diabetes mellitus with unspecified complications E11.8 ; Essential hypertension I10 ; Other chronic pain G89.29 ; Anxiety associated with depression F41.8 ; COPD ( chronic obstructive pulmonary disease) J44.9 ; Low vitamin D level E55.9 ; Tobacco abuse Z72.0 ; Hypertriglyceridemia E78.1 and Abnormal laboratory test R89.[address] 32172- 4772 Aug, Pneumonia J18.9 ; Hypertriglyceridemia E78.1 ; COPD ( chronic obstructive pulmonary disease) J44.9 and Hyperlipidemia E78.[address] 06294- 9876 Aug, Shortness of breath R06.02 ; Anxiety associated with depression F41.8 and Chest pain, unspecified R07.9 [place] [id number] [place] [address] 39871- 4789 Jul, [place] [id number] [place] [address] 62929- 5277 Jun, Anxiety associated with depression F41.8 ; [...] unspecified type R11.2 and Tobacco abuse Z72.0 [place] [id number] [place] [address] 61805- 6487 May, Hyperlipemia E78.5 [place] [id number] [place] [address] 01940- 2554 May, [place] [id number] [place] [address] 89932- 3956 May, Type 2 diabetes mellitus with unspecified complications E11.8 [place] [id number] [place] [address] 72712- 2089 May, [place] [id number] [place] [address] 47626- 3407 May, Anxiety associated with depression F41.8 ; Type 2 diabetes mellitus with unspecified complications E11.8 ; Essential hypertension I10 ; Peripheral neuropathy G62.9 ; Low back pain M54.5 ; Other chronic pain G89.29 ; GERD (gastroesophageal reflux disease) K21.9 ; Insomnia G47.00 ; COPD (chronic obstructive pulmonary disease) J44.9 ; URI (upper respiratory infection) J06.9 and Depression F32.[address] [place] [address]- 9725 08 May, 2015 Low back pain M54.5 ; Anxiety about health F41.8 ; Generalized anxiety disorder F41.1 and Acute stress reaction F43.0 [place] [address], [place] [address]- 5477 May, [place] [address] [place] [address] 21205- 4018 Apr, Diabetes E11.9 ; Type 2 diabetes mellitus with unspecified complications E11.8 ; Essential hypertension I10 ; Peripheral neuropathy G62.9 ; Low back pain M54.5 ; Other chronic pain G89.29 ; GERD (gastroesophageal reflux disease) K21.9 ; Anxiety associated with depression F41.8 ; Muscle spasm of calf M62.831 ; Insomnia G47.00 and COPD (chronic obstructive pulmonary disease) J44.9 [address] [address]- 8301 May, [place] [id number] [address]- 7479 May, IMMUNIZATIONS No Known Immunizations SOCIAL HISTORY Never Assessed REASON FOR VISIT Controlled Med Refill PLAN OF CARE VITAL SIGNS MEDICATIONS Medication Instructions Dosage Frequency Start Date End Date Duration Status Xanax 0.5 MG Orally 3 times a [...]
--- OUTSIDE RECORDS SUMMARY | 2018-02-19 17:04 | XMS REPORT ---
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 Name Role Phone KATIE JEFFRIES Unavailable PROBLEMS Type Condition ICD9-CM Code GJS94-IH Code Onset Dates Condition Status SNOMED Code Problem COPD (chronic obstructive pulmonary disease) J44.9 Active 61148526 Problem Low back pain M54.5 Active 615268845 Problem GERD (gastroesophageal reflux disease) K21.9 Active 703929353 Problem Chronic renal insufficiency N18.9 Active 895361669 Problem Vitamin D deficiency E55.9 Active 71078092 Problem Type 2 diabetes mellitus with unspecified complications E11.8 Active 75492223 Problem Other chronic pain G89.29 Active 27905240 Problem Mixed hyperlipidemia E78.2 Active 047503775 Problem Controlled substance agreement signed Z79.899 Active 367953044 Problem Anxiety associated with depression F41.8 Active 957731104 Problem Peripheral neuropathy G62.9 Active 80042078 Problem Mild sleep apnea G47.30 Active 41865906 Problem Essential hypertension I10 Active 31122440 Problem Osteoarthritis of acromioclavicular joint M19.019 Active 849404154 Problem Insomnia G47.00 Active [id number] ALLERGIES No Information ENCOUNTERS Encounter Location Date Diagnosis [facility] [address] [facility] [id number] [address] Dec, [facility] [address] [facility] [id number] [address] Dec, [facility] [id number] [address] Dec, [facility] [address] [facility] [id number], [place] [address] Dec, Type 2 diabetes mellitus with unspecified complications E11.8 [place] [address] [facility] [id number] [place] [address] Dec, Type 2 diabetes mellitus with unspecified complications E11.8 [facility] [address] [facility] [id number] [place] [address] 1646 Dec, [facility] [address] [facility] [id number] [place] [address] 3920 Dec, Type 2 diabetes mellitus with unspecified complications E11.8 [facility] [address] [facility] [id number] [place] [address] 7996 Dec, [facility] [address] [facility] [id number] [place] [address]- 5731 Dec, [facility] [address] [facility] [id number] [place] [address] 9602 Dec, [facility] [address] [address] Dec, [facility] [address] [facility] [id number] [place] [address] Dec, [facility] [address] [address] 6[address] Dec, Other chronic pain G89.29 and Anxiety associated with depression F41.8 [facility] [id number] [address] 4428 Dec, Type 2 diabetes mellitus with unspecified complications E11.8 [facility] [address] [facility] [id number] [place] [address] 4100 Nov, [facility] [address] [facility] [id number] [place] [address]- 0040 Nov, [facility] [address] [facility] [id number] [place] [address]- 4992 Nov, [facility] [id number] [address] Nov, [facility] [address] [address]661 Nov, Type 2 diabetes mellitus with unspecified complications E11.8 [facility] [address], [place] [address] Nov, [facility] [address] [address] 4[address] Nov, Type 2 diabetes mellitus with unspecified complications E11.8 [facility] [address], [place] [address] Nov, Other chronic pain G89.29 and Anxiety associated with depression F41.8 [facility] [address] [address] 08 Nov, 2017 Chronic renal insufficiency N18.9 [facility] [address], [place] [address] 07 Nov, 2017 Other chronic pain G89.29 [facility] [address] [address] 3[address] Nov, Type 2 diabetes mellitus with unspecified complications E11.8 [facility] [address] [address] 9097 October, [facility] [address] [address] 17[address] October, [facility] [address], [place] [address] 1697 October, Type 2 diabetes mellitus with unspecified complications E11.8 [facility] [address] [address] 4798 October, [facility] [address], [place] [address] 25[address] October, [facility] [address], [place] [address] 5[address] October, Type 2 diabetes mellitus with unspecified complications E11.8 [facility] [address], [place] [address] 9997 October, [facility] [id number] [place] [address] 27900- 3912 October, [facility] [id number] [place] [address] 43306- 6296 October, Type 2 diabetes mellitus with unspecified complications E11.8 [facility] [id number] [place] [address] 52112- 1703 October, Type 2 diabetes mellitus with unspecified complications E11.8 ; Essential hypertension I10 ; Chronic renal insufficiency N18.9 ; BMI 40.0-44.9, adult Z68.41 ; Other chronic pain G89.29 ; Anxiety associated with depression F41.8 and Right medial knee pain M25.561 [place] [id number] [place] [address] 31065- 2778 October, GERD (gastroesophageal reflux disease) K21.9 and Anxiety associated with depression F41.8 [facility] [id number] [place] [address] 54286- 7607 October, Anxiety associated with depression F41.8 [place] [id number] [place] [address] 25494- 5910 Sep, [place] [id number] [place] [address] 63878- 2251 Sep, GERD (gastroesophageal reflux disease) K21.9 and Anxiety associated with depression F41.8 [facility] [address], [place] [address] 5980 Aug, [facility] [id number] [place] [address] 65707- 0299 Aug, [facility] [id number] [place] [address] 21758 -9287 Aug, Acute recurrent maxillary sinusitis J01.01 [facility] [id number] [place] [address] 12083- 1505 Aug, [facility] [address] [place] [address] 46097- 0597 Aug, GERD (gastroesophageal reflux disease) K21.9 and Other chronic pain G89.29 [facility] [address], [place] [address]65 Aug, [facility] [id number] [place] [address] 66620 -1716 Aug, [facility] [id number] [place] [address] 19514- 0348 Aug, Controlled substance agreement signed Z79.899 ; [...] Enlarged lymph nodes in armpit R59.0 [facility] [id number] [place] [address] 79451- 5021 Aug, Anxiety associated with depression F41.8 and GERD ( gastroesophageal reflux disease) K21.9 [facility] [address], [place] [address]- 0011 Jul, Controlled substance agreement signed Z79.899 [facility] [id number] [place] [address] 59769- 6575 Jun, Anxiety associated with depression F41.8 and GERD ( gastroesophageal reflux disease) K21.9 [place] [id number] [place] [address] 70488- 1696 May, Anxiety associated with depression F41.8 and GERD ( gastroesophageal reflux disease) K21.9 [place] [address] [id number] [place] [address] 83173- 8535 Apr, Mixed hyperlipidemia E78.2 [place] [address] [id number] [place] [address] 28600- 9535 Apr, Anxiety associated with depression F41.8 and GERD ( gastroesophageal reflux disease) K21.9 [place] [id number] [place] [address] 31546- 3315 Apr, [place] [address] 264[address]- 0938 Apr, Type 2 diabetes mellitus with unspecified complications E11.8 [place] [address] 00198- 0188 Apr, [place] [address] 67034- 7094 Apr, Type 2 diabetes mellitus with unspecified complications E11.8 [place] [address] 91902- 5238 Apr, [place] [address] [id number] [place] [address] 73756- 3056 Mar, GERD (gastroesophageal reflux disease) K21.9 and Anxiety associated with depression F41.8 [place] [address] [id number] [place] [address] 58441- 0977 Mar, 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 [place] [id number] [place] [address] 09618- 9133 Mar, Essential hypertension I10 ; Anxiety associated with depression F41.8 ; COPD (chronic obstructive pulmonary disease) J44.9 ; Mixed hyperlipidemia E78.2 ; Vitamin D deficiency E55.9 ; GERD (gastroesophageal reflux disease) K21.9 ; Type 2 diabetes mellitus with unspecified complications E11.8 ; Other chronic pain G89.29 and Chronic renal insufficiency N18.9 [place] [id number] [place] [address] 65441- 9632 Mar, Chronic renal insufficiency N18.9 [place] [address] [place] [address]- 2178 Feb, GERD (gastroesophageal reflux disease) K21.9 and Type 2 diabetes mellitus with unspecified complications E11.8 [place] [address] [id number] [place] [address] 87439- 9479 Feb, Anxiety associated with depression F41.8 and Tear of left supraspinatus tendon, subsequent encounter S46.812D [place] [address] [id number] [place] [address] 56232- 8787 Jan, Pre-operative examination for internal medicine Z01.818 [place] [address] 23269- 4671 Jan, Anxiety associated with depression F41.8 and Left anterior shoulder pain M25.512 [place] [address] 66679- 3377 Jan, [place] [address] 06595- 1828 Jan, [place] [address] [id number] [place] [address] 37406- 2226 Jan, Type 2 diabetes mellitus with unspecified complications E11.8 ; Essential hypertension I10 ; Other chronic pain G89.29 ; GERD ( gastroesophageal reflux disease) K21.9 ; Anxiety associated with depression F41.8 ; Insomnia G47.00 ; Hypertriglyceridemia E78.1 ; Left anterior shoulder pain M25.512 and Tobacco abuse Z72.0 [place] [address] [id number] [place] [address] 18853- 7434 Dec, Anxiety associated with depression F41.8 and Tear of left supraspinatus tendon, subsequent encounter S46.812D [place] [id number] [place] [address] 88155- 3259 Nov, [place] [address] [id number] [place] [address] 24910- 7389 Nov, Anxiety associated with depression F41.8 and Tear of left supraspinatus tendon, subsequent encounter S46.812D [place] [address] [place] [id number] [place] [address] 77135- 4966 Nov, Abnormal lung sounds R09.89 and COPD (chronic obstructive pulmonary disease) with acute bronchitis J44.0 [place] [id number] [place] [address] 23799- 0053 Nov, [place] [address] 16327- 3742 October, COPD (chronic obstructive pulmonary disease) with acute bronchitis J44.0 ; Abnormal lung sounds R09.89 and Medication refill Z76.0 [place] [address] 79434- 2360 October, Anxiety associated with depression F41.8 [place] [address] [address] [id number] [place] [address] 08540- 7151 Sep, Nausea and vomiting, unspecified intactability, vomiting of unspecified type R11.2 [place] [address] [address] [id number] [place] [address] 45777- 1753 Sep, COPD (chronic obstructive pulmonary disease) J44.9 ; Tobacco abuse Z72.0 ; Tear of left supraspinatus tendon, subsequent encounter S46.812D and Type 2 diabetes mellitus with unspecified complications E11.8 [place] [address] [address] [id number] [place] [address] 17570- 4757 Sep, [place] [address] [id number] [place] [address] 83787- 9446 Aug, Left anterior shoulder pain M25.512 [place] [address] 48676- 5504 Aug, Left anterior shoulder pain M25.512 and Low back pain M54.5 [place] [address] [id number] [place] [address] 13007- 0524 Aug, [place] [address] 95939- 5943 Aug, [place] [address] [address]- 8906 Aug, [place] [id number] [place] [address] 98640- 8774 Aug, [place] [address] [id number] [place] [address] 19436- 7784 Aug, Type 2 diabetes mellitus with unspecified complications E11.8 [place] [address] [address] [id number] [place] [address] 94107- 0205 Aug, Type 2 diabetes mellitus with unspecified [...] E55.9 and GERD (gastroesophageal reflux disease) K21.9 [place] [address] [address] [id number] [place] [address] 71062- 9952 Aug, [place] [address] [id number] [place] [address] 18730- 0162 May, [place] [id number] [place] [address] 13298- 4833 Apr, [place] [address] [id number] [place] [address] 09542- 0843 Apr, Type 2 diabetes mellitus with unspecified [...] S49.92XA and Anxiety associated with depression F41.8 [place] [address] [address]- 4680 Apr, [facility] [address] [facility] [id number] [address]- 8732 Apr, [facility] [address] [address]- 2085 Apr, [facility] [address], [place] [address]- 7556 Mar, [facility] [address] [facility] [id number] [place] [address]- 1135 Feb, [facility] [address] [address]- 8379 Feb, [facility] [address], [place] [address]- 7261 Jan, [facility] [address], [place] [address]- 0183 Jan, [facility] [address], [place] [address]- 3972 Jan, Type 2 diabetes mellitus with unspecified complications E11.8 ; Essential hypertension I10 and Vitamin D deficiency E55.9 [facility] [id number], [place] [address]- 7664 Dec, Type 2 diabetes mellitus with unspecified complications E11.8 ; Essential hypertension I10 ; Other chronic pain G89.29 ; Anxiety associated with depression F41.8 ; Bronchitis J40 ; Vitamin D deficiency E55.9 and COPD (chronic obstructive pulmonary disease) J44.9 [facility] [address], [place] [address]- 7010 Nov, [facility] [address], [place] [address]- 9408 October, [facility] [id number], [place] [address]- 6559 October, [facility] [address] [place] [address] 12728- 9122 October, [place] [address] [id number] [place] [address] 24658- 2394 October, Dysuria R30.0 ; Bronchitis J40 ; Anxiety associated with depression F41.8 and Type 2 diabetes mellitus with unspecified complications E11.8 [place] [id number] [place] [address] 85614- 4487 October, Chronic renal insufficiency N18.9 ; Elevated white blood cell count D72.829 and Frequent UTI N39.0 [place] [address] 57764- 1644 October, Chronic renal insufficiency N18.9 ; Elevated white blood cell count D72.829 and Frequent UTI N39.0 [place] [address] [id number] [place] [address] 51237- 6466 October, [place] [address] [address] [id number] [place] [address] 49904- 6383 Sep, Type 2 diabetes mellitus with unspecified complications E11.8 ; Essential hypertension I10 ; COPD (chronic obstructive pulmonary disease ) J44.9 and Hospital discharge follow-up Z09 [place] [id number] [place] [address] 98112- 2010 Sep, [place] [address] [address] [id number] [place] [address] 44589- 1391 Sep, Dyspnea R06.00 ; Other chronic pain G89.29 ; Dysuria R30.0 ; Diaphoresis R61 ; Jaundice R17 ; COPD (chronic obstructive pulmonary disease) J44.9 ; Type 2 diabetes mellitus with unspecified complications E11.8 ; Excessive daytime sleepiness G47.19 and Oliguria R34 [place] [address] [id number] [place] [address] 86256- 0340 Sep, [place] [address] [place] [id number] [place] [address] 24790- 8273 Sep, Essential hypertension I10 ; Anxiety associated with depression F41.8 ; Mixed hyperlipidemia E78.2 ; Dyspnea R06.00 ; Shortness of breath R06.02 and Chest pain, unspecified R07.9 [place] [id number] [place] [address] 02284- 6561 Sep, Chest pain R07.9 ; Hyperlipemia E78.5 ; Type 2 diabetes mellitus with unspecified complications E11.8 ; Essential hypertension I10 ; Other chronic pain G89.29 ; Anxiety associated with depression F41.8 ; COPD ( chronic obstructive pulmonary disease) J44.9 ; Low vitamin D level E55.9 ; Tobacco abuse Z72.0 ; Hypertriglyceridemia E78.1 and Abnormal laboratory test R89.[address] 53076- 6966 Aug, Pneumonia J18.9 ; Hypertriglyceridemia E78.1 ; COPD ( chronic obstructive pulmonary disease) J44.9 and Hyperlipidemia E78.[address] 69661- 3109 Aug, Shortness of breath R06.02 ; Anxiety associated with depression F41.8 and Chest pain, unspecified R07.[address] 45805- 2364 Jul, [address] 93551- 9310 Jun, Anxiety associated with depression F41.8 ; [...] unspecified type R11.2 and Tobacco abuse Z72.[address] 63816- 0150 May, Hyperlipemia E78.5 [place] [address], [place] [address]- 7273 May, [place] [address] [place] [id number] [place] [address] 74049- 1405 May, Type 2 diabetes mellitus with unspecified complications E11.8 [place] [address] [id number] [place] [address] 39400- 5386 May, [place] [address] [id number] [place] [address] 17905- 9757 May, Anxiety associated with depression F41.8 ; Type 2 diabetes mellitus with unspecified complications E11.8 ; Essential hypertension I10 ; Peripheral neuropathy G62.9 ; Low back pain M54.5 ; Other chronic pain G89.29 ; GERD (gastroesophageal reflux disease) K21.9 ; Insomnia G47.00 ; COPD (chronic obstructive pulmonary disease) J44.9 ; URI (upper respiratory infection) J06.9 and Depression F32.9 [place] [id number] [place] [address] 73676- 7845 May, Low back pain M54.5 ; Anxiety about health F41.8 ; Generalized anxiety disorder F41.1 and Acute stress reaction F43.0 [address] [place] [address] 11682- 9651 May, [place] [id number] [place] [address] 04508- 6818 Apr, Diabetes E11.9 ; Type 2 diabetes mellitus with unspecified complications E11.8 ; Essential hypertension I10 ; Peripheral neuropathy G62.9 ; Low back pain M54.5 ; Other chronic pain G89.29 ; GERD (gastroesophageal reflux disease) K21.9 ; Anxiety associated with depression F41.8 ; Muscle spasm of calf M62.831 ; Insomnia G47.00 and COPD (chronic obstructive pulmonary disease) J44.9 [place] [address] [place] [address] 64382- 1179 May, [address] [address] [address] May, IMMUNIZATIONS No Known Immunizations SOCIAL HISTORY Never Assessed REASON FOR VISIT Lab results PLAN OF CARE VITAL SIGNS MEDICATIONS Unknown [...]
--- OUTSIDE RECORDS SUMMARY | 2018-02-19 17:04 | XMS REPORT ---
Author Author KATIE JEFFRIES Organization [facility] Address [address] [place] [address] Care Team Providers Care Bottle Washer Name Role Phone KATIE JEFFRIES Unavailable PROBLEMS Type Condition ICD9-CM Code HOB52-MB Code Onset Dates Condition Status SNOMED Code Problem COPD (chronic obstructive pulmonary disease) J44.9 Active 81723213 Problem Low back pain M54.5 Active 024188859 Problem GERD (gastroesophageal reflux disease) K21.9 Active 394124129 Problem Chronic renal insufficiency N18.9 Active 921157994 Problem Vitamin D deficiency E55.9 Active 20649686 Problem Type 2 diabetes mellitus with unspecified complications E11.8 Active 99895287 Problem Other chronic pain G89.29 Active 90735454 Problem Mixed hyperlipidemia E78.2 Active 139580376 Problem Controlled substance agreement signed Z79.899 Active 942037459 Problem Anxiety associated with depression F41.8 Active 819793939 Problem Peripheral neuropathy G62.9 Active 33075485 Problem Mild sleep apnea G47.30 Active 79809393 Problem Essential hypertension I10 Active 60978863 Problem Osteoarthritis of acromioclavicular joint M19.019 Active 812583685 Problem Insomnia G47.00 Active 071795707 ALLERGIES No Information ENCOUNTERS Encounter Location Date Diagnosis [facility] [address] [facility] [id number] [address] Dec, [facility] [address] [facility] [id number] [address] Dec, [facility] [address] [place] [place] [id number] [address] Dec, [facility] [address] [facility] [id number] [address] Dec, Type 2 diabetes mellitus with unspecified complications E11.8 [place] [id number] [facility] [id number] [place] [address] Dec, Type 2 diabetes mellitus with unspecified complications E11.8 [facility] [address] [facility] [id number] [place] [address]16 Dec, [facility] [address] [facility] [id number] [place] [address] 5294 Dec, Type 2 diabetes mellitus with unspecified complications E11.8 [facility] [address] [facility] [id number] [place] [address] 0706 Dec, [facility] [address] [facility] [id number] [place] [address] 1271 Dec, [facility] [address] [facility] [id number] [place] [address] 9664 Dec, [facility] [id number] [place] [address] Dec, [facility] [address] [facility] [id number] [place] [address] 3415 Dec, [facility] [id number] [address] 48[address] Dec, Other chronic pain G89.29 and Anxiety associated with depression F41.8 [facility] [address] [id number] [address] Dec, Type 2 diabetes mellitus with unspecified complications E11.8 [facility] [address] [facility] [id number] [place] [address] 5127 Nov, [facility] [address] [facility] [id number] [place] [address] 6001 Nov, [facility] [address] [facility] [id number] [place] [address]- 9838 Nov, [facility] [address] [id number] [address] 2816 Nov, [facility] [address]65[address] [address] 4714 Nov, Type 2 diabetes mellitus with unspecified complications E11.8 [facility] [address] [address] Nov, [facility] [address] [address] 4797 Nov, Type 2 diabetes mellitus with unspecified complications E11.8 [facility] [address] [address] 8616 Nov, Other chronic pain G89.29 and Anxiety associated with depression F41.8 [facility] [address] [address] 140[address] 08 Nov, 2017 Chronic renal insufficiency N18.9 [facility] [address] [address] 07 Nov, 2017 Other chronic pain G89.29 [facility] [address] [address] 5693 Nov, Type 2 diabetes mellitus with unspecified complications E11.8 [facility] [address] [address] 9890 October, [facility] [address] [address] October, [facility] [address] [address] 2958 October, Type 2 diabetes mellitus with unspecified complications E11.8 [facility] [address] [address] 4[address] October, [facility] [address] [address]- 3516 October, [facility] [address] [address]- 5976 October, Type 2 diabetes mellitus with unspecified complications E11.8 [facility] [address] [address]- 9075 October, [facility] [id number] [place] [address] 87400- 2897 October, [facility] [id number] [place] [address] 33781- 3938 October, Type 2 diabetes mellitus with unspecified complications E11.8 [facility] [id number] [place] [address] 96549- 5043 October, Type 2 diabetes mellitus with unspecified complications E11.8 ; Essential hypertension I10 ; Chronic renal insufficiency N18.9 ; BMI 40.0-44.9, adult Z68.41 ; Other chronic pain G89.29 ; Anxiety associated with depression F41.8 and Right medial knee pain M25.561 [place] [address] [place] [address] [id number] [place] [address]9975- 3784 October, GERD (gastroesophageal reflux disease) K21.9 and Anxiety associated with depression F41.8 [facility] [id number] [place] [address] 89610- 3466 October, Anxiety associated with depression F41.8 [place] [address] [place] [id number] [place] [address] 71714- 4030 Sep, [place] [address] [place] [id number] [place] [address] 89195- 8500 Sep, GERD (gastroesophageal reflux disease) K21.9 and Anxiety associated with depression F41.8 [facility] [address]65[address] [address]- 6432 Aug, [facility] [id number] [place] [address] 88693- 5687 Aug, [facility] [id number] [place] [address] 15209 -1284 Aug, Acute recurrent maxillary sinusitis J01.01 [facility] [id number] [place] [address] 56107- 2263 Aug, [facility] [id number] [place] [address] 52491- 0824 Aug, GERD (gastroesophageal reflux disease) K21.9 and Other chronic pain G89.29 [facility] [address]65[address] [address]- 8488 Aug, [facility] [id number] [place] [address] 78573 -[address] Aug, [facility] [id number] [place] [address] 46591- 0844 Aug, Controlled substance agreement signed Z79.899 ; [...] and Enlarged lymph nodes in armpit R59.0 [facility] [id number] [place] [address] 51761- 0538 Aug, Anxiety associated with depression F41.8 and GERD ( gastroesophageal reflux disease) K21.9 [facility] [address] [address]- 4779 Jul, Controlled substance agreement signed Z79.899 [facility] [id number] [place] [address] 34616- 7168 Jun, Anxiety associated with depression F41.8 and GERD ( gastroesophageal reflux disease) K21.9 [place] [address] [id number] [place] [address] 88068- 6893 May, Anxiety associated with depression F41.8 and GERD ( gastroesophageal reflux disease) K21.9 [place] [address] [place] [id number] [place] [address] 80107- 9785 Apr, Mixed hyperlipidemia E78.2 [place] [address] [place] [id number] [place] [address] 23101- 3680 Apr, Anxiety associated with depression F41.8 and GERD ( gastroesophageal reflux disease) K21.9 [place] [address] [place] [id number] [place] [address] 59284- 0613 Apr, [place] [address] [address]- 6804 Apr, Type 2 diabetes mellitus with unspecified complications E11.8 [place] [address] 13173- 9146 Apr, [place] [address] 29903- 5039 Apr, Type 2 diabetes mellitus with unspecified complications E11.8 [place] [address] 61361- 8775 Apr, [place] [address] [place] [id number] [place] [address] 08340- 4112 Mar, GERD (gastroesophageal reflux disease) K21.9 and Anxiety associated with depression F41.8 [place] [address] [place] [id number] [place] [address] 80061- 9068 Mar, 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 [place] [address] [place] [id number] [place] [address] 99330- 6243 Mar, Essential hypertension I10 ; Anxiety associated with depression F41.8 ; COPD (chronic obstructive pulmonary disease) J44.9 ; Mixed hyperlipidemia E78.2 ; Vitamin D deficiency E55.9 ; GERD (gastroesophageal reflux disease) K21.9 ; Type 2 diabetes mellitus with unspecified complications E11.8 ; Other chronic pain G89.29 and Chronic renal insufficiency N18.9 [place] [address] [place] [id number] [place] [address] 48713- 8675 Mar, Chronic renal insufficiency N18.9 [place] [address] [place] [address]- 4577 Feb, GERD (gastroesophageal reflux disease) K21.9 and Type 2 diabetes mellitus with unspecified complications E11.8 [place] [address] [place] [id number] [place] [address] 57885- 3301 Feb, Anxiety associated with depression F41.8 and Tear of left supraspinatus tendon, subsequent encounter S46.812D [place] [address] [place] [id number] [place] [address] 87314- 7549 Jan, Pre-operative examination for internal medicine Z01.818 [place] [address] 87883- 7347 Jan, Anxiety associated with depression F41.8 and Left anterior shoulder pain M25.512 [place] [address] 73850- 3322 Jan, [place] [address] 68601- 9491 Jan, [place] [address] [place] [id number] [place] [address] 00973- 6998 Jan, Type 2 diabetes mellitus with unspecified complications E11.8 ; Essential hypertension I10 ; Other chronic pain G89.29 ; GERD ( gastroesophageal reflux disease) K21.9 ; Anxiety associated with depression F41.8 ; Insomnia G47.00 ; Hypertriglyceridemia E78.1 ; Left anterior shoulder pain M25.512 and Tobacco abuse Z72.0 [place] [address] [place] [id number] [place] [address] 35229- 7431 Dec, Anxiety associated with depression F41.8 and Tear of left supraspinatus tendon, subsequent encounter S46.812D [place] [address] [place] [id number] [place] [address] 59073- 1882 Nov, [place] [address] [place] [id number] [place] [address] 30044- 8964 Nov, Anxiety associated with depression F41.8 and Tear of left supraspinatus tendon, subsequent encounter S46.812D [place] [address] [place] [id number] [place] [address] 37734- 3411 Nov, Abnormal lung sounds R09.89 and COPD (chronic obstructive pulmonary disease) with acute bronchitis J44.0 [place] [address] [place] [id number] [place] [address] 43802- 5856 Nov, [place] [address] 35214- 9943 October, COPD (chronic obstructive pulmonary disease) with acute bronchitis J44.0 ; Abnormal lung sounds R09.89 and Medication refill Z76.0 [place] [address] 50282- 1300 October, Anxiety associated with depression F41.8 [place] [address] [place] [id number] [place] [address] 36912- 1306 Sep, Nausea and vomiting, unspecified intactability, vomiting of unspecified type R11.2 [place] [address] [place] [id number] [place] [address] 30188- 2417 Sep, COPD (chronic obstructive pulmonary disease) J44.9 ; Tobacco abuse Z72.0 ; Tear of left supraspinatus tendon, subsequent encounter S46.812D and Type 2 diabetes mellitus with unspecified complications E11.8 [place] [address] [place] [id number] [place] [address] 08112- 2447 Sep, [place] [address] [place] [id number] [place] [address] 18904- 2813 Aug, Left anterior shoulder pain M25.512 [place] [address] 97516- 9144 Aug, Left anterior shoulder pain M25.512 and Low back pain M54.5 [place] [address] [place] [id number] [place] [address] 39137- 9626 Aug, [place] [address] 31918- 5895 Aug, [place] [address] [address]- 1074 Aug, [place] [address] [place] [id number] [place] [address] 89295- 1776 Aug, [place] [address] [place] [id number] [place] [address] 04011- 5249 Aug, Type 2 diabetes mellitus with unspecified complications E11.8 [place] [address] [place] [id number] [place] [address] 51756- 5559 Aug, Type 2 diabetes mellitus with unspecified [...] E55.9 and GERD (gastroesophageal reflux disease) K21.9 [place] [address] [place] [id number] [place] [address] 74902- 3675 Aug, [place] [address] [place] [id number] [place] [address] 86790- 0505 May, [place] [address] [place] [id number] [place] [address] 48328- 6915 Apr, [place] [address] [id number] [place] [address] 53530- 1956 Apr, Type 2 diabetes mellitus with unspecified [...] S49.92XA and Anxiety associated with depression F41.8 [place] [id number] [address]- 8146 Apr, [facility] [address] [facility] [id number] [address]- 4512 Apr, [facility] [id number] [address]- 6504 Apr, [facility] [address] [address]- 9657 Mar, [facility] [address] [facility] [id number] [place] [address]- 7664 Feb, [facility] [id number] [address]- 8529 Feb, [facility] [address] [address]- 5934 Jan, [facility] [address] [address]- 6011 Jan, [facility] [address] [address]- 9528 Jan, Type 2 diabetes mellitus with unspecified complications E11.8 ; Essential hypertension I10 and Vitamin D deficiency E55.9 [facility] [address] [id number] [address]- 4822 Dec, Type 2 diabetes mellitus with unspecified complications E11.8 ; Essential hypertension I10 ; Other chronic pain G89.29 ; Anxiety associated with depression F41.8 ; Bronchitis J40 ; Vitamin D deficiency E55.9 and COPD (chronic obstructive pulmonary disease) J44.9 [facility] [address] [address]- 4172 Nov, [facility] [address] [address]- 7220 October, [facility] [address] [id number] [address]- 6308 October, [facility] [id number] [place] [address] 54038- 5103 October, [place] [address] [place] [id number] [place] [address] 53515- 6506 October, Dysuria R30.0 ; Bronchitis J40 ; Anxiety associated with depression F41.8 and Type 2 diabetes mellitus with unspecified complications E11.8 [place] [id number] [place] [address] 66736- 8763 October, Chronic renal insufficiency N18.9 ; Elevated white blood cell count D72.829 and Frequent UTI N39.0 [place] [address] 60626- 2862 October, Chronic renal insufficiency N18.9 ; Elevated white blood cell count D72.829 and Frequent UTI N39.0 [place] [address] [place] [id number] [place] [address] 18995- 6622 October, [place] [address] [place] [id number] [place] [address] 44280- 5385 Sep, Type 2 diabetes mellitus with unspecified complications E11.8 ; Essential hypertension I10 ; COPD (chronic obstructive pulmonary disease ) J44.9 and Hospital discharge follow-up Z09 [place] [address] [place] [id number] [place] [address] 62150- 2781 Sep, [place] [address] [place] [id number] [place] [address] 34325- 6891 Sep, Dyspnea R06.00 ; Other chronic pain G89.29 ; Dysuria R30.0 ; Diaphoresis R61 ; Jaundice R17 ; COPD (chronic obstructive pulmonary disease) J44.9 ; Type 2 diabetes mellitus with unspecified complications E11.8 ; Excessive daytime sleepiness G47.19 and Oliguria R34 [place] [address] [place] [id number] [place] [address] 44126- 7281 Sep, [place] [address] [place] [id number] [place] [address] 63869- 1486 Sep, Essential hypertension I10 ; Anxiety associated with depression F41.8 ; Mixed hyperlipidemia E78.2 ; Dyspnea R06.00 ; Shortness of breath R06.02 and Chest pain, unspecified R07.9 [place] [id number] [place] [address] 35293- 8827 Sep, Chest pain R07.9 ; Hyperlipemia E78.5 ; Type 2 diabetes mellitus with unspecified complications E11.8 ; Essential hypertension I10 ; Other chronic pain G89.29 ; Anxiety associated with depression F41.8 ; COPD ( chronic obstructive pulmonary disease) J44.9 ; Low vitamin D level E55.9 ; Tobacco abuse Z72.0 ; Hypertriglyceridemia E78.1 and Abnormal laboratory test R89.[address] 7[address]01- 4316 Aug, Pneumonia J18.9 ; Hypertriglyceridemia E78.1 ; COPD ( chronic obstructive pulmonary disease) J44.9 and Hyperlipidemia E78.[address] 01200- 0477 Aug, Shortness of breath R06.02 ; Anxiety associated with depression F41.8 and Chest pain, unspecified R07.[address] 33471- 0733 Jul, [address] 52108- 1232 Jun, Anxiety associated with depression F41.8 ; [...] unspecified type R11.2 and Tobacco abuse Z72.[address] 97329- 4013 May, Hyperlipemia E78.5 [place] [address] [address]- 8752 May, [place] [address] [place] [id number] [place] [address] 57139- 3029 May, Type 2 diabetes mellitus with unspecified complications E11.8 [place] [address] [place] [id number] [place] [address] 36677- 8054 May, [place] [address] [place] [id number] [place] [address] 55407- 1396 May, Anxiety associated with depression F41.8 ; Type 2 diabetes mellitus with unspecified complications E11.8 ; Essential hypertension I10 ; Peripheral neuropathy G62.9 ; Low back pain M54.5 ; Other chronic pain G89.29 ; GERD (gastroesophageal reflux disease) K21.9 ; Insomnia G47.00 ; COPD (chronic obstructive pulmonary disease) J44.9 ; URI (upper respiratory infection) J06.9 and Depression F32.9 [place] [id number] [place] [address] 56948- 6914 May, Low back pain M54.5 ; Anxiety about health F41.8 ; Generalized anxiety disorder F41.1 and Acute stress reaction F43.0 [address] [place] [address] 59527- 0370 May, [place] [address] [place] [id number] [place] [address] 92189- 9749 Apr, Diabetes E11.9 ; Type 2 diabetes mellitus with unspecified complications E11.8 ; Essential hypertension I10 ; Peripheral neuropathy G62.9 ; Low back pain M54.5 ; Other chronic pain G89.29 ; GERD (gastroesophageal reflux disease) K21.9 ; Anxiety associated with depression F41.8 ; Muscle spasm of calf M62.831 ; Insomnia G47.00 and COPD (chronic obstructive pulmonary disease) J44.9 [place] [id number] [place] [address] 21925- 0543 May, [address] [place] [address] [address] 16 May, 2013 IMMUNIZATIONS No Known Immunizations SOCIAL HISTORY Never Assessed REASON FOR VISIT Refill request PLAN OF CARE VITAL SIGNS MEDICATIONS Medication Instructions Dosage Frequency Start Date End Date Duration Status Hydrocodone-Acetaminophen 5-325 MG Orally twice a day 1 tablet as needed 12h Sep, 28 days Active Xanax 0.5 MG Orally [...]
--- OUTSIDE RECORDS SUMMARY | 2018-02-19 17:05 | XMS REPORT ---
Author Author YUDY SWEENEY [facility] Address [address] [place] [address] Care Team Providers Care Sr Risk Management Consultant Name Role Phone YUDY SWEENEY Unavailable PROBLEMS Type Condition ICD9-CM Code BZE38-IB Code Onset Dates Condition Status SNOMED Code Problem COPD (chronic obstructive pulmonary disease) J44.9 Active 96080704 Problem Low back pain M54.5 Active 182253229 Problem GERD (gastroesophageal reflux disease) K21.9 Active 776184073 Problem Chronic renal insufficiency N18.9 Active 462379369 Problem Vitamin D deficiency E55.9 Active 00796334 Problem Type 2 diabetes mellitus with unspecified complications E11.8 Active 41724424 Problem Other chronic pain G89.29 Active 76661186 Problem Mixed hyperlipidemia E78.2 Active 544467200 Problem Controlled substance agreement signed Z79.899 Active 859712649 Problem Anxiety associated with depression F41.8 Active 929278355 Problem Peripheral neuropathy G62.9 Active 14819436 Problem Mild sleep apnea G47.30 Active 18381472 Problem Essential hypertension I10 Active 20092275 Problem Osteoarthritis of acromioclavicular joint M19.019 Active 730997666 Problem Insomnia G47.00 Active 564506447 ALLERGIES Substance Reaction Event Type Date Status Cymbalta suicidal thoughts Drug Allergy Aug, Active Crestor Unknown Drug Allergy Aug, Active ENCOUNTERS Encounter Location Date Diagnosis [facility], [place] [address] [facility] [id number] [address] Dec, [facility], [place] [address] [facility] [place] [facility] [id number], [place] [address] Dec, Type 2 diabetes mellitus with unspecified complications E11.8 [facility], [place] [address] [id number] [address] Dec, Type 2 diabetes mellitus with unspecified complications E11.8 [facility], [place] [address] [place] [address] Dec, [facility], [place] [address] [address] Dec, Type 2 diabetes mellitus with unspecified complications E11.8 [facility], [place] [address] [address] Dec, [facility], [place] [address] [address] Dec, [facility], [place] [address] [place] [address] 119[address] Dec, [facility], [place] [address] [address] Dec, [facility], [place] [address] [address] Dec, [facility], [place] [address] [address] 6[address] Dec, Other chronic pain G89.29 and Anxiety associated with depression F41.8 [facility], [place] [address], [place] [address] Dec, Type 2 diabetes mellitus with unspecified complications E11.8 [facility], [place] [address] [address] Nov, [facility], [place] [address] [address] 9988 Nov, [facility], [place] [address] [address] 8[address] Nov, [facility], [place] [address] [address] 7[address] Nov, [facility], [place] [id number] [address] 8435 Nov, Type 2 diabetes mellitus with unspecified complications E11.8 [facility], [place] [address] [address] Nov, [facility], [place] [address] [address] 3556 Nov, Type 2 diabetes mellitus with unspecified complications E11.8 [facility], [place] [address], [place] [address] 0[address] Nov, Other chronic pain G89.29 and Anxiety associated with depression F41.8 [facility], [place] [address], [place] [address] 08 Nov, 2017 Chronic renal insufficiency N18.9 [facility], [place] [address], [place] [address] 07 Nov, 2017 Other chronic pain G89.29 [facility], [place] [address] [address] 2[address] Nov, Type 2 diabetes mellitus with unspecified complications E11.8 [facility], [place] [address], [place] [address] 5[address] October, [facility], [place] [address], [place] [address]- 4918 October, [facility], [place] [address], [place] [address] 4809 October, Type 2 diabetes mellitus with unspecified complications E11.8 [facility], [place] [address], [place] [address] 38[address] October, [facility], [place] [id number] [address] 1807 October, [facility], [place] [address], [place] [address] 7133 October, Type 2 diabetes mellitus with unspecified complications E11.8 [facility], [place] [address], [place] [address]- 4[address] October, [place] [id number] [place] [address]- 3480 October, [place] [id number] [place] [address] 78633- 1523 October, Type 2 diabetes mellitus with unspecified complications E11.8 [place] [id number] [place] [address] 18669- 2942 October, Type 2 diabetes mellitus with unspecified complications E11.8 ; Essential hypertension I10 ; Chronic renal insufficiency N18.9 ; BMI 40.0-44.9, adult Z68.41 ; Other chronic pain G89.29 ; Anxiety associated with depression F41.8 and Right medial knee pain M25.561 [place] [id number] [place] [address] 58262- 6265 October, GERD (gastroesophageal reflux disease) K21.9 and Anxiety associated with depression F41.8 [place] [id number] [place] [address] 52246- 6460 October, Anxiety associated with depression F41.8 [place] [id number] [place] [address] 75953- 3128 Sep, [place] [address] [address] Sep, GERD (gastroesophageal reflux disease) K21.9 and Anxiety associated with depression F41.8 [place] [id number] [place] [address] 89468- 1630 Aug, [place] [id number] [place] [address] 70192- 7334 Aug, [facility] [id number] [place] [address] -5814 Aug, Acute recurrent maxillary sinusitis J01.01 [place] [id number] [place] [address] 45460- 6336 Aug, [place] [id number] [place] [address] 30192- 1418 Aug, GERD (gastroesophageal reflux disease) K21.9 and Other chronic pain G89.29 [facility], [place] [address] [place] [address] 01845- 4271 Aug, [facility] [address], [place] [address] Aug, [facility], [place] [id number] [place] [address] 76252- 5713 Aug, Controlled substance agreement signed Z79.899 ; [...] and Enlarged lymph nodes in armpit R59.0 [facility], [place] [address] [place] [address] 35018- 4345 Aug, Anxiety associated with depression F41.8 and GERD ( gastroesophageal reflux disease) K21.9 [facility], [place] [address] [place] [address] 47377- 6143 Jul, Controlled substance agreement signed Z79.899 [facility], [place] [address] [place] [address] 53129- 4106 Jun, Anxiety associated with depression F41.8 and GERD ( gastroesophageal reflux disease) K21.9 [facility], [place] [address] [place] [address] 29344- 1215 May, Anxiety associated with depression F41.8 and GERD ( gastroesophageal reflux disease) K21.9 [place] [id number] [place] [address] 89938- 0772 Apr, Mixed hyperlipidemia E78.2 [facility], [place] [id number] [place] [address] 91178- 0581 Apr, Anxiety associated with depression F41.8 and GERD ( gastroesophageal reflux disease) K21.9 [place] [id number] [place] [address] 12034- 4059 Apr, [place] [id number] [place] [address] 40595- 5198 Apr, Type 2 diabetes mellitus with unspecified complications E11.8 [place] [id number] [place] [address] 13126- 3156 Apr, [place] [id number] [place] [address] 68885- 4795 Apr, Type 2 diabetes mellitus with unspecified complications E11.8 [place] [id number] [place] [address] 69554- 2619 Apr, [place] [id number] [place] [address] 03049- 2815 Mar, GERD (gastroesophageal reflux disease) K21.9 and Anxiety associated with depression F41.8 [place] [id number] [place] [address] 03442- 2702 Mar, 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 [place] [address] [place] [address] 10628- 6175 Mar, Essential hypertension I10 ; Anxiety associated with depression F41.8 ; COPD (chronic obstructive pulmonary disease) J44.9 ; Mixed hyperlipidemia E78.2 ; Vitamin D deficiency E55.9 ; GERD (gastroesophageal reflux disease) K21.9 ; Type 2 diabetes mellitus with unspecified complications E11.8 ; Other chronic pain G89.29 and Chronic renal insufficiency N18.9 [place] [id number] [place] [address] 21056- 3520 Mar, Chronic renal insufficiency N18.9 [place] [address] [place] [address] 61489- 8240 Feb, GERD (gastroesophageal reflux disease) K21.9 and Type 2 diabetes mellitus with unspecified complications E11.8 [place] [address] [place] [address] 85045- 1860 Feb, Anxiety associated with depression F41.8 and Tear of left supraspinatus tendon, subsequent encounter S46.812D [place] [id number] [place] [address] 99057- 8532 Jan, Pre-operative examination for internal medicine Z01.818 [place] [id number] [place] [address] 00664- 8245 Jan, Anxiety associated with depression F41.8 and Left anterior shoulder pain M25.512 [place] [id number] [place] [address] 24340- 1559 Jan, [place] [id number] [place] [address] 88023- 4314 Jan, [place] [id number] [place] [address] 51588- 4293 Jan, Type 2 diabetes mellitus with unspecified complications E11.8 ; Essential hypertension I10 ; Other chronic pain G89.29 ; GERD ( gastroesophageal reflux disease) K21.9 ; Anxiety associated with depression F41.8 ; Insomnia G47.00 ; Hypertriglyceridemia E78.1 ; Left anterior shoulder pain M25.512 and Tobacco abuse Z72.0 [place] [address] [place] [address] 08547- 9631 Dec, Anxiety associated with depression F41.8 and Tear of left supraspinatus tendon, subsequent encounter S46.812D [place] [id number] [place] [address] 35569- 0964 Nov, [place] [id number] [place] [address] 30644- 4882 Nov, Anxiety associated with depression F41.8 and Tear of left supraspinatus tendon, subsequent encounter S46.812D [place] [id number] [place] [address] 72240- 0639 Nov, Abnormal lung sounds R09.89 and COPD (chronic obstructive pulmonary disease) with acute bronchitis J44.0 [place] [address] 77460- 1574 Nov, [place] [address] 91369- 4784 October, COPD (chronic obstructive pulmonary disease) with acute bronchitis J44.0 ; Abnormal lung sounds R09.89 and Medication refill Z76.0 [place] [address] 99453- 7833 October, Anxiety associated with depression F41.8 [place] [address] 38673- 8023 Sep, Nausea and vomiting, unspecified intactability, vomiting of unspecified type R11.[address] [address]77- 4757 Sep, COPD (chronic obstructive pulmonary disease) J44.9 ; Tobacco abuse Z72.0 ; Tear of left supraspinatus tendon, subsequent encounter S46.812D and Type 2 diabetes mellitus with unspecified complications E11.8 [place] [id number] [place] [address] 26441- 6326 Sep, [place] [address] 89272- 3108 Aug, Left anterior shoulder pain M25.512 [place] [id number] [place] [address] 87326- 7951 Aug, Left anterior shoulder pain M25.512 and Low back pain M54.5 [place] [address] 95215- 0620 Aug, [place] [address] 71607- 5019 Aug, [place] [address] 47445- 8751 Aug, [place] [address] [place] [address] 19486- 1811 Aug, [place] [id number] [place] [address] 99696- 6058 Aug, Type 2 diabetes mellitus with unspecified complications E11.8 [place] [id number] [place] [address] 05926- 4477 Aug, Type 2 diabetes mellitus with unspecified [...] E55.9 and GERD (gastroesophageal reflux disease) K21.9 [address] [id number] [place] [address] 33630- 8955 Aug, [place] [id number] [place] [address] 70156- 0094 May, [address] [id number] [place] [address] 93290- 3882 Apr, [id number] [place] [address] 80702- 4716 Apr, Type 2 diabetes mellitus with unspecified [...] S49.92XA and Anxiety associated with depression F41.8 [address] [id number] [place] [address] 73632- 9941 Apr, [place] [address] [place] [address]- 7849 Apr, [facility], [place] [address] [address]- 7271 Apr, [facility], [place] [address] [address]95 Mar, [facility], [place] [address] 5255 Feb, [facility], [place] [address] [place] [address]- 6817 Feb, [facility], [place] [address] [place] [address]- 4908 Jan, [facility], [place] [address], [place] [address]- 6967 Jan, [facility], [place] [address], [place] [address]- 6295 Jan, Type 2 diabetes mellitus with unspecified complications E11.8 ; Essential hypertension I10 and Vitamin D deficiency E55.9 [facility], [place] [address], [place] [address]- 5776 Dec, Type 2 diabetes mellitus with unspecified complications E11.8 ; Essential hypertension I10 ; Other chronic pain G89.29 ; Anxiety associated with depression F41.8 ; Bronchitis J40 ; Vitamin D deficiency E55.9 and COPD (chronic obstructive pulmonary disease) J44.9 [facility], [place] [id number] [address]- 5644 Nov, [facility], [place] [address] 7408 October, [facility], [place] [address] 6577 October, [facility], [place] [id number], [place] [address]- 5997 October, [facility], [place] [address] [place] [address] 82590- 5563 October, Dysuria R30.0 ; Bronchitis J40 ; Anxiety associated with depression F41.8 and Type 2 diabetes mellitus with unspecified complications E11.8 [place] [id number] [place] [address] 60391- 5618 October, Chronic renal insufficiency N18.9 ; Elevated white blood cell count D72.829 and Frequent UTI N39.0 [place] [id number] [place] [address] 56882- 2356 October, Chronic renal insufficiency N18.9 ; Elevated white blood cell count D72.829 and Frequent UTI N39.0 [place] [id number] [place] [address] 05025- 8289 October, [place] [id number] [place] [address] 07143- 3958 Sep, Type 2 diabetes mellitus with unspecified complications E11.8 ; Essential hypertension I10 ; COPD (chronic obstructive pulmonary disease ) J44.9 and Hospital discharge follow-up Z09 [place] [id number] [place] [address] 54701- 5827 Sep, [place] [id number] [place] [address] 24491- 2649 Sep, Dyspnea R06.00 ; Other chronic pain G89.29 ; Dysuria R30.0 ; Diaphoresis R61 ; Jaundice R17 ; COPD (chronic obstructive pulmonary disease) J44.9 ; Type 2 diabetes mellitus with unspecified complications E11.8 ; Excessive daytime sleepiness G47.19 and Oliguria R34 [place] [id number] [place] [address] 36099- 4567 Sep, [place] [address] 47333- 4816 Sep, Essential hypertension I10 ; Anxiety associated with depression F41.8 ; Mixed hyperlipidemia E78.2 ; Dyspnea R06.00 ; Shortness of breath R06.02 and Chest pain, unspecified R07.9 [place] [id number] [place] [address] 22644- 3546 Sep, Chest pain R07.9 ; Hyperlipemia E78.5 ; Type 2 diabetes mellitus with unspecified complications E11.8 ; Essential hypertension I10 ; Other chronic pain G89.29 ; Anxiety associated with depression F41.8 ; COPD ( chronic obstructive pulmonary disease) J44.9 ; Low vitamin D level E55.9 ; Tobacco abuse Z72.0 ; Hypertriglyceridemia E78.1 and Abnormal laboratory test R89.9 [place] [address] 85733- 3456 Aug, Pneumonia J18.9 ; Hypertriglyceridemia E78.1 ; COPD ( chronic obstructive pulmonary disease) J44.9 and Hyperlipidemia E78.[address] 85921- 1835 Aug, Shortness of breath R06.02 ; Anxiety associated with depression F41.8 and Chest pain, unspecified R07.[address] 15494- 7465 Jul, [address] 24858- 0509 Jun, Anxiety associated with depression F41.8 ; [...] unspecified type R11.2 and Tobacco abuse Z72.0 [place] [id number] [place] [address] 31337- 2228 May, Hyperlipemia E78.[address] 21185- 3526 May, [place] [address] [address]- 8819 May, Type 2 diabetes mellitus with unspecified complications E11.8 [place] [address] [place] [address] 41337- 1528 May, [place] [id number] [place] [address] 99046- 5372 May, Anxiety associated with depression F41.8 ; Type 2 diabetes mellitus with unspecified complications E11.8 ; Essential hypertension I10 ; Peripheral neuropathy G62.9 ; Low back pain M54.5 ; Other chronic pain G89.29 ; GERD (gastroesophageal reflux disease) K21.9 ; Insomnia G47.00 ; COPD (chronic obstructive pulmonary disease) J44.9 ; URI (upper respiratory infection) J06.9 and Depression F32.9 [place] [id number] [place] [address] 05599- 3664 May, Low back pain M54.5 ; Anxiety about health F41.8 ; Generalized anxiety disorder F41.1 and Acute stress reaction F43.0 [place] [id number] [place] [address] 33697- 5378 May, [place] [id number] [place] [address] 09179- 2998 Apr, Diabetes E11.9 ; Type 2 diabetes mellitus with unspecified complications E11.8 ; Essential hypertension I10 ; Peripheral neuropathy G62.9 ; Low back pain M54.5 ; Other chronic pain G89.29 ; GERD (gastroesophageal reflux disease) K21.9 ; Anxiety associated with depression F41.8 ; Muscle spasm of calf M62.831 ; Insomnia G47.00 and COPD (chronic obstructive pulmonary disease) J44.9 [place] [id number] [place] [address] 02266- 5918 May, [place] [id number] [place] [address] 44983- 2898 May, IMMUNIZATIONS No Known Immunizations SOCIAL HISTORY Never Assessed REASON FOR VISIT Cough, lethargic, headache, SOB. cough is productive and is yellow tinged. been sick for 6 weeks. gianni PLAN OF CARE Activity Details Follow Up follow up with PCP if not improving in 3-5 days, sooner if worse. Reason: VITAL SIGNS Height 65 in 2017-09-01 Weight 242.0 lbs 2017-09-01 Temperature 98.6 degrees Fahrenheit 2017-09-01 Heart Rate 117 bpm 2017-09-01 Respiratory Rate 20 2017-09-01 Oximetry on room air:93 % 2017-09-01 BMI 40.27 kg/m2 2017-09-01 Blood pressure systolic 126 mmHg 2017-09-01 Blood pressure diastolic 72 mmHg 2017-09-01 MEDICATIONS Medication Instructions Dosage Frequency Start Date End Date Duration Status Neurontin 300 MG Orally twice a day 1 capsule before bedtime 12h 90 days Active ProAir HFA 108 (90 Base) MCG/ACT Inhalation every 4 hrs 2 puffs as needed 4h 20 Nov, 2016 12 months Active Protonix 40 MG Orally Once a day 1 tablet 24h Feb, 90 days Active Spiriva HandiHaler 18 mcg Inhalation Once a day INHALE THE CONTENTS OF 1 CAPSULE VIA INHALATION DEVICE EVERY DAY 24h 30 Active Aspirin 325 MG Orally Once a day 1 tablet 24h Active Hydrocodone-Acetaminophen 5-325 MG Orally twice a day 1 tablet as needed 12h Aug, 28 days Active Metamucil 0.52 GM Orally Three times a day 2 capsules with 8 ounces of liquid 8h Active Guaifenesin 400 MG Orally every 4 hrs 1 tablet as needed 4h Aug, Aug, 5 days Active ReliOn Blood Glucose Test - as directed Sep, Active Benazepril HCl 5 mg Orally Once a day 1 tablet 24h Sep, 90 days Active Advair Diskus 250-50 MCG/DOSE Inhalation Twice a day 1 puff 12h Sep, 12 months Active Metformin HCl 1000 TAKE 1 TABLET BY MOUTH TWICE DAILY WITH MEALS 90 days Active Paroxetine HCl 20 mg Orally 2 times a day 1 tablet 12h Sep, 90 days Active Xanax 0.5 MG Orally 3 times a day 1 tablet 8h Active Baclofen 10 mg Orally 2 times a day 1 tablet with food or milk 12h 90 days Active Albuterol Sulfate (2.5 MG/3ML) 0.083% Inhalation Three times a day PRN 3 ml 30 days Active Singulair 10 mg Orally Once a day 1 tablet in the evening 24h 90 days Active Invokana 100 mg Orally Once a day 1 tablet 24h Apr, 90 days Active Chlorthalidone 25 MG Orally Once a day 1/2 tablet in the morning with food 24h Apr, 90 days Active Zofran ODT 8 MG Orally every 8 hrs as directed 8h Aug, 30 days Active Metoprolol Tartrate 25 MG Orally Once a day 1 tablet 24h 90 days Active Fenofibrate 160 MG Orally Once a day 1 tablet with a meal 24h May, 90 days Active Augmentin 875-125 MG Orally every 12 hrs 1 tablet 12h Aug, Sep, 14 days Active Glimepiride 1 MG Orally Once a day 1 tablet with breakfast or the first main meal of the day 24h 90 days Active Fish Oil 1200 MG Orally Once a day 1 capsule 24h Active RESULTS No Results PROCEDURES No Known [...]
--- OUTSIDE RECORDS SUMMARY | 2018-02-19 17:05 | XMS REPORT ---
Author Author KATIE JEFFRIES Organization [facility] Address [address] [place] [address] Care Team Providers Care Copier Field Service Technician Name Role Phone KATIE JEFFRIES Unavailable PROBLEMS Type Condition ICD9-CM Code GUM96-ID Code Onset Dates Condition Status SNOMED Code Problem COPD (chronic obstructive pulmonary disease) J44.9 Active 48413332 Problem Low back pain M54.5 Active 635341036 Problem GERD (gastroesophageal reflux disease) K21.9 Active 174711592 Problem Chronic renal insufficiency N18.9 Active 120900072 Problem Vitamin D deficiency E55.9 Active 03164894 Problem Type 2 diabetes mellitus with unspecified complications E11.8 Active 59776789 Problem Other chronic pain G89.29 Active 58047737 Problem Mixed hyperlipidemia E78.2 Active 835497361 Problem Controlled substance agreement signed Z79.899 Active 942091349 Problem Anxiety associated with depression F41.8 Active 625458776 Problem Peripheral neuropathy G62.9 Active 78185742 Problem Mild sleep apnea G47.30 Active 26262523 Problem Essential hypertension I10 Active 10138819 Problem Osteoarthritis of acromioclavicular joint M19.019 Active 268146698 Problem Insomnia G47.00 Active [id number] ALLERGIES No Information ENCOUNTERS Encounter Location Date Diagnosis [facility] [address] [facility] [id number], [place] [address] Dec, [facility] [address] [facility] [id number], [place] [address] Dec, [facility] [address] [id number] [address] Dec, [facility] [address] [facility] [id number], [place] [address] Dec, Type 2 diabetes mellitus with unspecified complications E11.8 [place] [address] [facility] [id number] [place] [address] Dec, Type 2 diabetes mellitus with unspecified complications E11.8 [facility] [address] [facility] [id number] [place] [address] 7656 Dec, [facility] [address] [facility] [id number] [place] [address]- 2164 Dec, Type 2 diabetes mellitus with unspecified complications E11.8 [facility] [address] [facility] [id number] [place] [address]- 0546 Dec, [facility] [address] [facility] [id number] [place] [address]- 9449 Dec, [facility] [address] [facility] [id number] [place] [address] 4430 Dec, [facility] [address] [place] [address] 8[address] Dec, [facility] [address] [facility] [id number] [place] [address]- 5074 Dec, [facility] [address] [place] [address] 84[address] Dec, Other chronic pain G89.29 and Anxiety associated with depression F41.8 [facility] [address] [id number] [place] [address] 3536 Dec, Type 2 diabetes mellitus with unspecified complications E11.8 [facility] [address] [facility] [id number] [place] [address]- 4643 Nov, [facility] [address] [facility] [id number] [place] [address]- 6691 Nov, [facility] [address] [facility] [id number] [place] [address]- 8338 Nov, [facility] [id number] [place] [address]- 7711 Nov, [facility] [address], [place] [address] Nov, Type 2 diabetes mellitus with unspecified complications E11.8 [facility] [address], [place] [address] Nov, [facility] [address], [place] [address] 1237 Nov, Type 2 diabetes mellitus with unspecified complications E11.8 [facility] [address], [place] [address] 9281 Nov, Other chronic pain G89.29 and Anxiety associated with depression F41.8 [facility] [address], [place] [address] 08 Nov, 2017 Chronic renal insufficiency N18.9 [facility] [address], [place] [address] 07 Nov, 2017 Other chronic pain G89.29 [facility] [address], [place] [address] 30[address] Nov, Type 2 diabetes mellitus with unspecified complications E11.8 [facility] [address], [place] [address] 8[address] October, [facility] [address], [place] [address] 76[address] October, [facility] [address], [place] [address] 7301 October, Type 2 diabetes mellitus with unspecified complications E11.8 [facility] [address], [place] [address] 1461 October, [facility] [address], [place] [address] 6023 October, [facility] [address], [place] [address] 6368 October, Type 2 diabetes mellitus with unspecified complications E11.8 [facility] [address], [place] [address] 0273 October, [facility] [id number] [place] [address] 62878- 1142 October, [facility] [id number] [place] [address] 50096- 8216 October, Type 2 diabetes mellitus with unspecified complications E11.8 [facility] [id number] [place] [address] 31730- 8812 October, Type 2 diabetes mellitus with unspecified complications E11.8 ; Essential hypertension I10 ; Chronic renal insufficiency N18.9 ; BMI 40.0-44.9, adult Z68.41 ; Other chronic pain G89.29 ; Anxiety associated with depression F41.8 and Right medial knee pain M25.561 [place] [id number] [place] [address] 16915- 5644 October, GERD (gastroesophageal reflux disease) K21.9 and Anxiety associated with depression F41.8 [facility] [id number] [place] [address] 71460- 6437 October, Anxiety associated with depression F41.8 [place] [id number] [place] [address] 59489- 1209 Sep, [place] [id number] [place] [address] 26695- 3623 Sep, GERD (gastroesophageal reflux disease) K21.9 and Anxiety associated with depression F41.8 [facility] [address], [place] [address] 9902 Aug, [facility] [id number] [place] [address] 51140- 1049 Aug, [facility] [id number] [place] [address] 32483 -7976 Aug, Acute recurrent maxillary sinusitis J01.01 [facility] [id number] [place] [address] 82187- 3895 Aug, [facility] [id number] [place] [address] 12502- 9795 Aug, GERD (gastroesophageal reflux disease) K21.9 and Other chronic pain G89.29 [facility] [address], [place] [address] 9288 Aug, [facility] [id number] [place] [address] 90737 -7512 Aug, [facility] [id number] [place] [address] 21076- 1464 Aug, Controlled substance agreement signed Z79.899 ; [...] and Enlarged lymph nodes in armpit R59.0 [facility] [id number] [place] [address] 96559- 7375 Aug, Anxiety associated with depression F41.8 and GERD ( gastroesophageal reflux disease) K21.9 [facility] [address], [place] [address]- 3489 Jul, Controlled substance agreement signed Z79.899 [facility] [id number] [place] [address] 18045- 1105 Jun, Anxiety associated with depression F41.8 and GERD ( gastroesophageal reflux disease) K21.9 [place] [id number] [place] [address] 77437- 6156 May, Anxiety associated with depression F41.8 and GERD ( gastroesophageal reflux disease) K21.9 [place] [id number] [place] [address] 07124- 7466 Apr, Mixed hyperlipidemia E78.2 [place] [id number] [place] [address] 81776- 4112 Apr, Anxiety associated with depression F41.8 and GERD ( gastroesophageal reflux disease) K21.9 [place] [id number] [place] [address] 60200- 8265 Apr, [place] [address] [address]- 0054 Apr, Type 2 diabetes mellitus with unspecified complications E11.8 [place] [address] 09625- 8968 Apr, [place] [address] 78920- 2930 Apr, Type 2 diabetes mellitus with unspecified complications E11.8 [place] [address] 78823- 9717 Apr, [place] [id number] [place] [address] 17154- 9300 Mar, GERD (gastroesophageal reflux disease) K21.9 and Anxiety associated with depression F41.8 [place] [id number] [place] [address] 57614- 9700 Mar, 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 [place] [id number] [place] [address] 93961- 8472 Mar, Essential hypertension I10 ; Anxiety associated with depression F41.8 ; COPD (chronic obstructive pulmonary disease) J44.9 ; Mixed hyperlipidemia E78.2 ; Vitamin D deficiency E55.9 ; GERD (gastroesophageal reflux disease) K21.9 ; Type 2 diabetes mellitus with unspecified complications E11.8 ; Other chronic pain G89.29 and Chronic renal insufficiency N18.9 [place] [id number] [place] [address] 79748- 7805 Mar, Chronic renal insufficiency N18.9 [place] [address] [place] [address]- 6237 Feb, GERD (gastroesophageal reflux disease) K21.9 and Type 2 diabetes mellitus with unspecified complications E11.8 [place] [id number] [place] [address] 25857- 8516 Feb, Anxiety associated with depression F41.8 and Tear of left supraspinatus tendon, subsequent encounter S46.812D [place] [id number] [place] [address] 54793- 9716 Jan, Pre-operative examination for internal medicine Z01.818 [place] [address] 84158- 7457 Jan, Anxiety associated with depression F41.8 and Left anterior shoulder pain M25.512 [place] [address] 03984- 9192 Jan, [place] [address] 07728- 6238 Jan, [place] [id number] [place] [address] 71848- 5514 Jan, Type 2 diabetes mellitus with unspecified complications E11.8 ; Essential hypertension I10 ; Other chronic pain G89.29 ; GERD ( gastroesophageal reflux disease) K21.9 ; Anxiety associated with depression F41.8 ; Insomnia G47.00 ; Hypertriglyceridemia E78.1 ; Left anterior shoulder pain M25.512 and Tobacco abuse Z72.0 [place] [id number] [place] [address] 19875- 0245 Dec, Anxiety associated with depression F41.8 and Tear of left supraspinatus tendon, subsequent encounter S46.812D [place] [id number] [place] [address] 58897- 8549 Nov, [place] [id number] [place] [address] 02728- 1346 Nov, Anxiety associated with depression F41.8 and Tear of left supraspinatus tendon, subsequent encounter S46.812D [place] [id number] [place] [address] 42074- 4613 Nov, Abnormal lung sounds R09.89 and COPD (chronic obstructive pulmonary disease) with acute bronchitis J44.0 [place] [id number] [place] [address] 81544- 5638 Nov, [place] [address] 65424- 5793 October, COPD (chronic obstructive pulmonary disease) with acute bronchitis J44.0 ; Abnormal lung sounds R09.89 and Medication refill Z76.0 [place] [address] 33822- 5736 October, Anxiety associated with depression F41.8 [place] [id number] [place] [address] 22211- 7154 Sep, Nausea and vomiting, unspecified intactability, vomiting of unspecified type R11.2 [place] [id number] [place] [address] 60432- 0687 Sep, COPD (chronic obstructive pulmonary disease) J44.9 ; Tobacco abuse Z72.0 ; Tear of left supraspinatus tendon, subsequent encounter S46.812D and Type 2 diabetes mellitus with unspecified complications E11.8 [place] [id number] [place] [address] 88258- 0504 Sep, [place] [id number] [place] [address] 40739- 6112 Aug, Left anterior shoulder pain M25.512 [place] [address] 52882- 8355 Aug, Left anterior shoulder pain M25.512 and Low back pain M54.5 [place] [id number] [place] [address] 53468- 8599 Aug, [place] [address] 65719- 4657 Aug, [place] [address], [place] [address]- 8363 Aug, [place] [id number] [place] [address] 12847- 6519 Aug, [place] [id number] [place] [address] 40486- 0090 Aug, Type 2 diabetes mellitus with unspecified complications E11.8 [place] [id number] [place] [address] 91173- 8649 Aug, Type 2 diabetes mellitus with unspecified [...] GERD (gastroesophageal reflux disease) K21.9 [place] [id number] [place] [address] 97484- 3552 Aug, [place] [id number] [place] [address] 47714- 8302 May, [place] [id number] [place] [address] 22204- 1819 Apr, [place] [id number] [place] [address] 43104- 6121 Apr, Type 2 diabetes mellitus with unspecified [...] Anxiety associated with depression F41.8 [place] [address] [place] [address]- 4492 Apr, [facility] [address] [facility] [id number] [address]- 0494 Apr, [facility] [address] [place] [address]- 7207 Apr, [facility] [address], [place] [address]- 5700 Mar, [facility] [address] [facility] [id number] [place] [address]- 9821 Feb, [facility] [address] [place] [address]- 7372 Feb, [facility] [address], [place] [address]- 0497 Jan, [facility] [address], [place] [address]- 3703 Jan, [facility] [address], [place] [address]- 1571 Jan, Type 2 diabetes mellitus with unspecified complications E11.8 ; Essential hypertension I10 and Vitamin D deficiency E55.9 [facility] [id number], [place] [address]- 2615 Dec, Type 2 diabetes mellitus with unspecified complications E11.8 ; Essential hypertension I10 ; Other chronic pain G89.29 ; Anxiety associated with depression F41.8 ; Bronchitis J40 ; Vitamin D deficiency E55.9 and COPD (chronic obstructive pulmonary disease) J44.9 [facility] [address], [place] [address]- [address] Nov, [facility] [address], [place] [address]- 0568 October, [facility] [id number], [place] [address]- 8418 October, [facility] [address] [place] [address] 38010- 9658 October, [place] [id number] [place] [address] 17854- 2326 October, Dysuria R30.0 ; Bronchitis J40 ; Anxiety associated with depression F41.8 and Type 2 diabetes mellitus with unspecified complications E11.8 [place] [id number] [place] [address] 40302- 5992 October, Chronic renal insufficiency N18.9 ; Elevated white blood cell count D72.829 and Frequent UTI N39.0 [place] [address] 80299- 8284 October, Chronic renal insufficiency N18.9 ; Elevated white blood cell count D72.829 and Frequent UTI N39.0 [place] [id number] [place] [address] 30636- 8318 October, [place] [id number] [place] [address] 42289- 6730 Sep, Type 2 diabetes mellitus with unspecified complications E11.8 ; Essential hypertension I10 ; COPD (chronic obstructive pulmonary disease ) J44.9 and Hospital discharge follow-up Z09 [place] [id number] [place] [address] 91522- 4350 Sep, [place] [id number] [place] [address] 16145- 2478 Sep, Dyspnea R06.00 ; Other chronic pain G89.29 ; Dysuria R30.0 ; Diaphoresis R61 ; Jaundice R17 ; COPD (chronic obstructive pulmonary disease) J44.9 ; Type 2 diabetes mellitus with unspecified complications E11.8 ; Excessive daytime sleepiness G47.19 and Oliguria R34 [place] [id number] [place] [address] 10925- 4524 Sep, [place] [id number] [place] [address] 74640- 0805 Sep, Essential hypertension I10 ; Anxiety associated with depression F41.8 ; Mixed hyperlipidemia E78.2 ; Dyspnea R06.00 ; Shortness of breath R06.02 and Chest pain, unspecified R07.9 [place] [id number] [place] [address] 88459- 4498 Sep, Chest pain R07.9 ; Hyperlipemia E78.5 ; Type 2 diabetes mellitus with unspecified complications E11.8 ; Essential hypertension I10 ; Other chronic pain G89.29 ; Anxiety associated with depression F41.8 ; COPD ( chronic obstructive pulmonary disease) J44.9 ; Low vitamin D level E55.9 ; Tobacco abuse Z72.0 ; Hypertriglyceridemia E78.1 and Abnormal laboratory test R89.[address] 10576- 5103 Aug, Pneumonia J18.9 ; Hypertriglyceridemia E78.1 ; COPD ( chronic obstructive pulmonary disease) J44.9 and Hyperlipidemia E78.[address] 88086- 1314 Aug, Shortness of breath R06.02 ; Anxiety associated with depression F41.8 and Chest pain, unspecified R07.[address] 15939- 5575 Jul, [address] 92006- 3652 Jun, Anxiety associated with depression F41.8 ; [...] unspecified type R11.2 and Tobacco abuse Z72.[address] 77937- 2010 May, Hyperlipemia E78.5 [place] [address], [place] [address]- 0313 May, [place] [id number] [place] [address] 52190- 9377 May, Type 2 diabetes mellitus with unspecified complications E11.8 [place] [id number] [place] [address] 34045- 4247 May, [place] [id number] [place] [address] 49914- 9995 May, Anxiety associated with depression F41.8 ; Type 2 diabetes mellitus with unspecified complications E11.8 ; Essential hypertension I10 ; Peripheral neuropathy G62.9 ; Low back pain M54.5 ; Other chronic pain G89.29 ; GERD (gastroesophageal reflux disease) K21.9 ; Insomnia G47.00 ; COPD (chronic obstructive pulmonary disease) J44.9 ; URI (upper respiratory infection) J06.9 and Depression F32.9 [place] [id number] [place] [address] 06838- 8837 May, Low back pain M54.5 ; Anxiety about health F41.8 ; Generalized anxiety disorder F41.1 and Acute stress reaction F43.[id number] [place] [address] 43264- 1734 May, [place] [id number] [place] [address] 65466- 7645 Apr, Diabetes E11.9 ; Type 2 diabetes mellitus with unspecified complications E11.8 ; Essential hypertension I10 ; Peripheral neuropathy G62.9 ; Low back pain M54.5 ; Other chronic pain G89.29 ; GERD (gastroesophageal reflux disease) K21.9 ; Anxiety associated with depression F41.8 ; Muscle spasm of calf M62.831 ; Insomnia G47.00 and COPD (chronic obstructive pulmonary disease) J44.9 [place] [id number] [place] [address] 53746- 3183 May, [address] [place] [address] [address] May, IMMUNIZATIONS No Known Immunizations SOCIAL HISTORY Never Assessed REASON FOR VISIT Requests return call PLAN OF CARE VITAL SIGNS MEDICATIONS Unknown [...]
--- OUTSIDE RECORDS SUMMARY | 2018-02-19 17:06 | XMS REPORT ---
Author Author KATIE JEFFRIES Organization [facility] Address [address] [place] [address] Care Team Providers Care Rn Appeals Name Role Phone KATIE JEFFRIES Unavailable PROBLEMS Type Condition ICD9-CM Code JPQ34-FR Code Onset Dates Condition Status SNOMED Code Problem COPD (chronic obstructive pulmonary disease) J44.9 Active 26622193 Problem Low back pain M54.5 Active 767819398 Problem GERD (gastroesophageal reflux disease) K21.9 Active 552832510 Problem Chronic renal insufficiency N18.9 Active 825089740 Problem Vitamin D deficiency E55.9 Active 95539596 Problem Type 2 diabetes mellitus with unspecified complications E11.8 Active 19099519 Problem Other chronic pain G89.29 Active 99974629 Problem Mixed hyperlipidemia E78.2 Active 229316990 Problem Controlled substance agreement signed Z79.899 Active 143746385 Problem Anxiety associated with depression F41.8 Active 868006262 Problem Peripheral neuropathy G62.9 Active 28750230 Problem Mild sleep apnea G47.30 Active 31877997 Problem Essential hypertension I10 Active 94339660 Problem Osteoarthritis of acromioclavicular joint M19.019 Active 272019597 Problem Insomnia G47.00 Active 985568571 ALLERGIES No Information ENCOUNTERS Encounter Location Date Diagnosis [facility] [address] [facility] [id number] [address] Dec, [facility] [address] [facility] [id number], [place] [address] Dec, Type 2 diabetes mellitus with unspecified complications E11.8 [facility] [address] [id number] [address] Dec, [facility] [address] [facility] [id number] [address] Dec, Type 2 diabetes mellitus with unspecified complications E11.8 [facility] [address] [address] Dec, [facility] [address] [address] 5608 Dec, [facility] [address] [address] 9339 Dec, [facility] [address] [address] 8091 Dec, [facility] [address], [place] [address] 29[address] Dec, [facility] [address] [address] 5086 Dec, Other chronic pain G89.29 and Anxiety associated with depression F41.8 [facility] [address], [place] [address]1 Dec, Type 2 diabetes mellitus with unspecified complications E11.8 [facility] [address] [address] 90[address] Nov, [facility] [address] [address] 3913 Nov, [facility] [address] [address] 0090 Nov, [facility] [address], [place] [address] 1383 Nov, [facility] [address] [address] 3435 Nov, Type 2 diabetes mellitus with unspecified complications E11.8 [facility] [address], [place] [address] Nov, [facility] [address] [address] 1733 Nov, Type 2 diabetes mellitus with unspecified complications E11.8 [facility] [address] [address] 8[address] 11 Nov, 2017 Other chronic pain G89.29 and Anxiety associated with depression F41.8 [facility] [address] [place] [address] 08 Nov, 2017 Chronic renal insufficiency N18.9 [facility] [id number] [place] [address] 2546 07 Nov, 2017 Other chronic pain G89.29 [facility] [address] [place] [address] 1670 Nov, Type 2 diabetes mellitus with unspecified complications E11.8 [facility] [address] [place] [address] 2267 October, [facility] [address] [id number] [address] 5447 October, [facility] [address] [address] 3908 October, Type 2 diabetes mellitus with unspecified complications E11.8 [facility] [address] [address] 9617 October, [facility] [address] [address]- 1483 October, [facility] [address] [address] 6934 October, Type 2 diabetes mellitus with unspecified complications E11.8 [facility] [address] [place] [address]- 9946 October, [facility] [address] [address] 3759 October, [facility] [address], [place] [address] 4882 October, Type 2 diabetes mellitus with unspecified complications E11.8 [place] [id number] [place] [address] 03518- 6777 October, Type 2 diabetes mellitus with unspecified complications E11.8 ; Essential hypertension I10 ; Chronic renal insufficiency N18.9 ; BMI 40.0-44.9, adult Z68.41 ; Other chronic pain G89.29 ; Anxiety associated with depression F41.8 and Right medial knee pain M25.561 [place] [address] [address] October, GERD (gastroesophageal reflux disease) K21.9 and Anxiety associated with depression F41.8 [place] [address] [address]- 3292 October, Anxiety associated with depression F41.8 [place] [address] [address]- [address] Sep, [place] [address] [address]- 2855 Sep, GERD (gastroesophageal reflux disease) K21.9 and Anxiety associated with depression F41.8 [facility] [id number] [place] [address] 60603- 8995 Aug, [place] [id number] [place] [address] 82183- 9840 Aug, [facility] [id number] [place] [address] 6[address]39 -2757 Aug, Acute recurrent maxillary sinusitis J01.01 [place] [id number] [place] [address] 06765- 8344 Aug, [place] [address] [address]- 5808 Aug, GERD (gastroesophageal reflux disease) K21.9 and Other chronic pain G89.29 [place] [id number] [place] [address] 24109- 7770 Aug, [facility] [address] [place] [address] Aug, [facility] [id number] [place] [address] 04283- 7788 Aug, Controlled substance agreement signed Z79.899 ; [...] and Enlarged lymph nodes in armpit R59.0 [place] [id number] [place] [address] 76537- 8660 Aug, Anxiety associated with depression F41.8 and GERD ( gastroesophageal reflux disease) K21.9 [place] [id number] [place] [address] 12697- 2063 Jul, Controlled substance agreement signed Z79.899 [place] [id number] [place] [address] 20612- 1883 Jun, Anxiety associated with depression F41.8 and GERD ( gastroesophageal reflux disease) K21.9 [place] [id number] [place] [address] 72558- 9809 May, Anxiety associated with depression F41.8 and GERD ( gastroesophageal reflux disease) K21.9 [facility] [address] [address] 8923 Apr, Mixed hyperlipidemia E78.2 [place] [id number] [place] [address] 79039- 6227 Apr, Anxiety associated with depression F41.8 and GERD ( gastroesophageal reflux disease) K21.9 [place] [id number] [place] [address] 45868- 2911 Apr, [place] [id number] [address]- 2158 Apr, Type 2 diabetes mellitus with unspecified complications E11.8 [place] [id number] [place] [address] 62650- 4747 Apr, [place] [address] [place] [address] 65273- 3715 Apr, Type 2 diabetes mellitus with unspecified complications E11.8 [place] [id number] [place] [address] 88057- 6748 Apr, [place] [id number] [place] [address]- 1951 Mar, GERD (gastroesophageal reflux disease) K21.9 and Anxiety associated with depression F41.8 [place] [id number] [place] [address] 44977- 6813 Mar, 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 [place] [id number] [place] [address] 81233- 3602 Mar, Essential hypertension I10 ; Anxiety associated with depression F41.8 ; COPD (chronic obstructive pulmonary disease) J44.9 ; Mixed hyperlipidemia E78.2 ; Vitamin D deficiency E55.9 ; GERD (gastroesophageal reflux disease) K21.9 ; Type 2 diabetes mellitus with unspecified complications E11.8 ; Other chronic pain G89.29 and Chronic renal insufficiency N18.9 [place] [address] [place] [address] 07626- 7057 Mar, Chronic renal insufficiency N18.9 [place] [id number] [place] [address] 06767- 3275 Feb, GERD (gastroesophageal reflux disease) K21.9 and Type 2 diabetes mellitus with unspecified complications E11.8 [place] [id number] [place] [address] 41185- 0443 Feb, Anxiety associated with depression F41.8 and Tear of left supraspinatus tendon, subsequent encounter S46.812D [place] [id number] [place] [address] 82460- 8433 Jan, Pre-operative examination for internal medicine Z01.818 [place] [address] [address]- 7584 Jan, Anxiety associated with depression F41.8 and Left anterior shoulder pain M25.512 [place] [id number] [place] [address] 52585- 6314 Jan, [place] [id number] [place] [address] 73146- 5948 Jan, [address] [address]- 4758 Jan, Type 2 diabetes mellitus with unspecified complications E11.8 ; Essential hypertension I10 ; Other chronic pain G89.29 ; GERD ( gastroesophageal reflux disease) K21.9 ; Anxiety associated with depression F41.8 ; Insomnia G47.00 ; Hypertriglyceridemia E78.1 ; Left anterior shoulder pain M25.512 and Tobacco abuse Z72.0 [place] [id number] [place] [address] 59007- 6309 Dec, Anxiety associated with depression F41.8 and Tear of left supraspinatus tendon, subsequent encounter S46.812D [place] [id number] [place] [address] 09603- 8306 Nov, [place] [id number] [place] [address] 55827- 4237 14 Nov, 2016 Anxiety associated with depression F41.8 and Tear of left supraspinatus tendon, subsequent encounter S46.812D [place] [id number] [place] [address] 95122- 7600 05 Nov, 2016 Abnormal lung sounds R09.89 and COPD (chronic obstructive pulmonary disease) with acute bronchitis J44.0 [place] [id number] [place] [address] 35087- 1726 Nov, [place] [address] [place] [address]- 7140 October, COPD (chronic obstructive pulmonary disease) with acute bronchitis J44.0 ; Abnormal lung sounds R09.89 and Medication refill Z76.0 [place] [id number] [place] [address] 18556- 5534 October, Anxiety associated with depression F41.8 [place] [address] 95434- 3216 Sep, Nausea and vomiting, unspecified intactability, vomiting of unspecified type R11.2 [place] [address] [address]- 1951 Sep, COPD (chronic obstructive pulmonary disease) J44.9 ; Tobacco abuse Z72.0 ; Tear of left supraspinatus tendon, subsequent encounter S46.812D and Type 2 diabetes mellitus with unspecified complications E11.8 [place] [address] 21795- 8660 Sep, [place] [id number] [place] [address] 20719- 5003 Aug, Left anterior shoulder pain M25.512 [place] [address] 67695- 3566 Aug, Left anterior shoulder pain M25.512 and Low back pain M54.5 [place] [id number] [place] [address] 54644- 9112 Aug, [place] [id number] [place] [address] 76516- 5248 Aug, [place] [address] 91049- 9306 Aug, [place] [id number] [place] [address] 82194- 5316 Aug, [place] [id number] [place] [address] 86259- 3685 Aug, Type 2 diabetes mellitus with unspecified complications E11.8 [place] [id number] [place] [address] 49897- 0661 Aug, Type 2 diabetes mellitus with unspecified [...] GERD (gastroesophageal reflux disease) K21.9 [place] [id number] [place] [address] 04616- 7750 Aug, [place] [id number] [place] [address] 34882- 8743 May, [place] [id number] [place] [address] 83276- 5139 Apr, [place] [id number] [place] [address] 67502- 1807 Apr, Type 2 diabetes mellitus with unspecified [...] Anxiety associated with depression F41.8 [place] [id number] [place] [address] 69281- 8066 Apr, [place] [id number] [place] [address] 69575- 9173 Apr, [place] [id number] [place] [address] 94347- 4737 Apr, [place] [id number] [place] [address] 12133- 2934 Mar, [facility] [address], [place] [address]- 2260 Feb, [facility] [id number] [place] [address] 53197- 7519 Feb, [facility] [address], [place] [address]- 2078 Jan, [facility] [id number] [place] [address] 03542- 3246 Jan, [facility] [address] [place] [address] 67129- 0365 Jan, Type 2 diabetes mellitus with unspecified complications E11.8 ; Essential hypertension I10 and Vitamin D deficiency E55.9 [place] [id number] [place] [address] 44209- 3599 Dec, Type 2 diabetes mellitus with unspecified complications E11.8 ; Essential hypertension I10 ; Other chronic pain G89.29 ; Anxiety associated with depression F41.8 ; Bronchitis J40 ; Vitamin D deficiency E55.9 and COPD (chronic obstructive pulmonary disease) J44.9 [place] [address] [address]- 8721 Nov, [place] [address] [address]- 7006 October, [facility] [address] [address]- 1194 October, [facility] [address] [address]- 9177 October, [facility] [id number] [place] [address] 04564- 8191 October, Dysuria R30.0 ; Bronchitis J40 ; Anxiety associated with depression F41.8 and Type 2 diabetes mellitus with unspecified complications E11.8 [facility] [address], [place] [address]- 8749 October, Chronic renal insufficiency N18.9 ; Elevated white blood cell count D72.829 and Frequent UTI N39.0 [place] [id number] [place] [address] 15947- 1179 October, Chronic renal insufficiency N18.9 ; Elevated white blood cell count D72.829 and Frequent UTI N39.0 [place] [id number] [place] [address] 23748- 1762 October, [place] [id number] [place] [address] 27047- 6962 Sep, Type 2 diabetes mellitus with unspecified complications E11.8 ; Essential hypertension I10 ; COPD (chronic obstructive pulmonary disease ) J44.9 and Hospital discharge follow-up Z09 [place] [id number] [place] [address] 32935- 0763 Sep, [address] 230[address]- 7618 Sep, Dyspnea R06.00 ; Other chronic pain G89.29 ; Dysuria R30.0 ; Diaphoresis R61 ; Jaundice R17 ; COPD (chronic obstructive pulmonary disease) J44.9 ; Type 2 diabetes mellitus with unspecified complications E11.8 ; Excessive daytime sleepiness G47.19 and Oliguria R34 [place] [id number] [place] [address] 22746- 2283 Sep, [place] [id number] [place] [address] 41250- 8164 Sep, Essential hypertension I10 ; Anxiety associated with depression F41.8 ; Mixed hyperlipidemia E78.2 ; Dyspnea R06.00 ; Shortness of breath R06.02 and Chest pain, unspecified R07.9 [place] [id number] [place] [address] 38599- 4267 Sep, Chest pain R07.9 ; Hyperlipemia E78.5 ; Type 2 diabetes mellitus with unspecified complications E11.8 ; Essential hypertension I10 ; Other chronic pain G89.29 ; Anxiety associated with depression F41.8 ; COPD ( chronic obstructive pulmonary disease) J44.9 ; Low vitamin D level E55.9 ; Tobacco abuse Z72.0 ; Hypertriglyceridemia E78.1 and Abnormal laboratory test R89.9 [place] [id number] [place] [address] 22167- 3778 Aug, Pneumonia J18.9 ; Hypertriglyceridemia E78.1 ; COPD ( chronic obstructive pulmonary disease) J44.9 and Hyperlipidemia E78.5 [place] [id number] [place] [address] 82590- 7816 Aug, Shortness of breath R06.02 ; Anxiety associated with depression F41.8 and Chest pain, unspecified R07.9 [place] [id number] [place] [address] 30417- 6378 Jul, [address] 20666- 5131 Jun, Anxiety associated with depression F41.8 ; [...] R11.2 and Tobacco abuse Z72.0 [place] [id number] [place] [address] 15497- 1000 May, Hyperlipemia E78.5 [place] [id number] [place] [address] 63281- 2114 May, [place] [id number] [place] [address] 61136- 7402 May, Type 2 diabetes mellitus with unspecified complications E11.8 [place] [id number] [place] [address] 86019- 2534 May, [address] [place] [address] 58241- 2565 May, Anxiety associated with depression F41.8 ; Type 2 diabetes mellitus with unspecified complications E11.8 ; Essential hypertension I10 ; Peripheral neuropathy G62.9 ; Low back pain M54.5 ; Other chronic pain G89.29 ; GERD (gastroesophageal reflux disease) K21.9 ; Insomnia G47.00 ; COPD (chronic obstructive pulmonary disease) J44.9 ; URI (upper respiratory infection) J06.9 and Depression F32.9 [place] [id number] [place] [address] 97338- 5519 May, Low back pain M54.5 ; Anxiety about health F41.8 ; Generalized anxiety disorder F41.1 and Acute stress reaction F43.0 [place] [id number] [place] [address] 79472- 1433 May, [place] [id number] [place] [address] 96668- 3124 Apr, Diabetes E11.9 ; Type 2 diabetes mellitus with unspecified complications E11.8 ; Essential hypertension I10 ; Peripheral neuropathy G62.9 ; Low back pain M54.5 ; Other chronic pain G89.29 ; GERD (gastroesophageal reflux disease) K21.9 ; Anxiety associated with depression F41.8 ; Muscle spasm of calf M62.831 ; Insomnia G47.00 and COPD (chronic obstructive pulmonary disease) J44.9 [address] [place] [address] 50330- 4472 May, [place] [id number] [place] [address] 39034- 6092 May, IMMUNIZATIONS No Known Immunizations SOCIAL HISTORY Never Assessed REASON FOR VISIT Ultrasound appointment PLAN OF CARE VITAL SIGNS MEDICATIONS Unknown [...]
--- OUTSIDE RECORDS SUMMARY | 2018-02-19 17:07 | XMS REPORT ---
Author Author KATIE JEFFRIES Organization [facility] Address [address] [place] [address] Care Team Providers Care Twist Maker Name Role Phone MERVIN KATIE Unavailable PROBLEMS Type Condition ICD9-CM Code QMM28-JP Code Onset Dates Condition Status SNOMED Code Problem COPD (chronic obstructive pulmonary disease) J44.9 Active 30571101 Problem Low back pain M54.5 Active 427338025 Problem GERD (gastroesophageal reflux disease) K21.9 Active 201361960 Problem Chronic renal insufficiency N18.9 Active 873439373 Problem Vitamin D deficiency E55.9 Active 19850550 Problem Type 2 diabetes mellitus with unspecified complications E11.8 Active 74372323 Problem Other chronic pain G89.29 Active 22161284 Problem Mixed hyperlipidemia E78.2 Active 771513523 Problem Controlled substance agreement signed Z79.899 Active 820042474 Problem Anxiety associated with depression F41.8 Active 912349586 Problem Peripheral neuropathy G62.9 Active 44633650 Problem Mild sleep apnea G47.30 Active 13568509 Problem Essential hypertension I10 Active 09088220 Problem Osteoarthritis of acromioclavicular joint M19.019 Active 268495575 Problem Insomnia G47.00 Active 448161526 ALLERGIES Substance Reaction Event Type Date Status Cymbalta suicidal thoughts Drug Allergy Aug, Active Crestor Unknown Drug Allergy Aug, Active ENCOUNTERS Encounter Location Date Diagnosis [facility] [address] [facility] [id number] [address] Dec, [facility] [address] [facility] [id number], [place] [address] Dec, [facility] [address] [id number] [address] Dec, [facility] [id number] [address] Dec, Type 2 diabetes mellitus with unspecified complications E11.8 [facility] [address] [address] Dec, [facility] [address] [address] Dec, [facility] [address] [address] Dec, [facility] [address] [address] Dec, [facility] [id number] [place] [address]2676- 9144 Dec, [facility] [address], [place] [address] Dec, Other chronic pain G89.29 and Anxiety associated with depression F41.8 [facility] [address] [address] Dec, Type 2 diabetes mellitus with unspecified complications E11.8 [facility] [address] [address] 8[address] Nov, [facility] [address] [address] Nov, [facility] [address] [address] 8[address] Nov, [facility] [address] [address] Nov, [facility] [address] [address] 1179 Nov, Type 2 diabetes mellitus with unspecified complications E11.8 [facility] [address] [address] Nov, [facility] [address] [address] Nov, Type 2 diabetes mellitus with unspecified complications E11.8 [facility] [address] [address] 69[address] 11 Nov, 2017 Other chronic pain G89.29 and Anxiety associated with depression F41.8 [facility] [address] [address] 08 Nov, 2017 Chronic renal insufficiency N18.9 [facility] [id number] [place] [address] 66629- 4562 07 Nov, 2017 Other chronic pain G89.29 [facility] [id number] [place] [address] 16589- 7706 Nov, Type 2 diabetes mellitus with unspecified complications E11.8 [facility] [address] [id number] [address] October, [facility] [id number] [place] [address] 54392- 7617 October, [facility] [address], [place] [address] 17[address] October, Type 2 diabetes mellitus with unspecified complications E11.8 [facility] [address], [place] [address] 0946 October, [facility] [address], [place] [address] October, [facility] [address], [place] [address]- 9937 October, Type 2 diabetes mellitus with unspecified complications E11.8 [facility] [address], [place] [address]- 6[address] October, [facility] [address], [place] [address]- 6[address] October, [facility] [address], [place] [address]- [address]10 October, Type 2 diabetes mellitus with unspecified complications E11.8 [place] [id number] [place] [address]2571- 5280 October, Type 2 diabetes mellitus with unspecified complications E11.8 ; Essential hypertension I10 ; Chronic renal insufficiency N18.9 ; BMI 40.0-44.9, adult Z68.41 ; Other chronic pain G89.29 ; Anxiety associated with depression F41.8 and Right medial knee pain M25.561 [place] [address] [address] October, GERD (gastroesophageal reflux disease) K21.9 and Anxiety associated with depression F41.8 [place] [address] 18[address]- 9441 October, Anxiety associated with depression F41.8 [place] [address] [address]- 5[address] Sep, [place] [address] 08[address]- 5185 Sep, GERD (gastroesophageal reflux disease) K21.9 and Anxiety associated with depression F41.8 [facility] [place] [id number] [place] [address] 54260- 3389 Aug, [place] [id number] [place] [address] 34695- 5048 Aug, [facility] [id number] [place] [address]19 -0803 Aug, Acute recurrent maxillary sinusitis J01.01 [facility] [id number] [place] [address] 58423- 9942 Aug, [place] [address] [address]- 2473 Aug, GERD (gastroesophageal reflux disease) K21.9 and Other chronic pain G89.29 [place] [address] 617[address]- 4480 Aug, [facility] [address], [place] [address] Aug, [facility] [address] [address]- 9[address] Aug, Controlled substance agreement signed Z79.899 ; [...] and Enlarged lymph nodes in armpit R59.0 [facility] [address] [place] [address] 52270- 2133 Aug, Anxiety associated with depression F41.8 and GERD ( gastroesophageal reflux disease) K21.9 [facility] [address], [place] [address] 2558 Jul, Controlled substance agreement signed Z79.899 [facility] [id number] [place] [address] 24078- 7060 Jun, Anxiety associated with depression F41.8 and GERD ( gastroesophageal reflux disease) K21.9 [facility] [address] [address]- 6097 May, Anxiety associated with depression F41.8 and GERD ( gastroesophageal reflux disease) K21.9 [facility] [address], [place] [address]- 7147 Apr, Mixed hyperlipidemia E78.2 [facility] [id number] [place] [address] 51725- 8203 Apr, Anxiety associated with depression F41.8 and GERD ( gastroesophageal reflux disease) K21.9 [facility] [id number] [place] [address] 96265- 0854 Apr, [place] [address], [place] [address]- 3389 Apr, Type 2 diabetes mellitus with unspecified complications E11.8 [place] [address], [place] [address]- 7149 Apr, [place] [id number] [place] [address] 65237- 6586 Apr, Type 2 diabetes mellitus with unspecified complications E11.8 [place] [id number] [place] [address] 70281- 9168 Apr, [place] [id number] [place] [address] 68285- 4147 Mar, GERD (gastroesophageal reflux disease) K21.9 and Anxiety associated with depression F41.8 [place] [id number] [place] [address] 07694- 5698 Mar, 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 [place] [id number] [place] [address] 54000- 6906 Mar, Essential hypertension I10 ; Anxiety associated with depression F41.8 ; COPD (chronic obstructive pulmonary disease) J44.9 ; Mixed hyperlipidemia E78.2 ; Vitamin D deficiency E55.9 ; GERD (gastroesophageal reflux disease) K21.9 ; Type 2 diabetes mellitus with unspecified complications E11.8 ; Other chronic pain G89.29 and Chronic renal insufficiency N18.9 [place] [address], [place] [address]- 7785 Mar, Chronic renal insufficiency N18.9 [place] [id number] [place] [address] 57051- 3201 Feb, GERD (gastroesophageal reflux disease) K21.9 and Type 2 diabetes mellitus with unspecified complications E11.8 [place] [address], [place] [address]- 8297 Feb, Anxiety associated with depression F41.8 and Tear of left supraspinatus tendon, subsequent encounter S46.812D [place] [address] [place] [address] 30206- 9216 Jan, Pre-operative examination for internal medicine Z01.818 [place] [id number] [place] [address] 46278- 4384 Jan, Anxiety associated with depression F41.8 and Left anterior shoulder pain M25.512 [place] [id number] [place] [address] 08387- 7277 Jan, [place] [id number] [place] [address] 79809- 1837 Jan, [place] [id number] [place] [address] 18652- 2301 Jan, Type 2 diabetes mellitus with unspecified complications E11.8 ; Essential hypertension I10 ; Other chronic pain G89.29 ; GERD ( gastroesophageal reflux disease) K21.9 ; Anxiety associated with depression F41.8 ; Insomnia G47.00 ; Hypertriglyceridemia E78.1 ; Left anterior shoulder pain M25.512 and Tobacco abuse Z72.0 [place] [id number] [place] [address] 79690- 8399 Dec, Anxiety associated with depression F41.8 and Tear of left supraspinatus tendon, subsequent encounter S46.812D [place] [id number] [place] [address] 89581- 9679 Nov, [place] [id number] [place] [address] 92324- 2059 Nov, Anxiety associated with depression F41.8 and Tear of left supraspinatus tendon, subsequent encounter S46.812D [place] [address] 18658- 3465 05 Nov, 2016 Abnormal lung sounds R09.89 and COPD (chronic obstructive pulmonary disease) with acute bronchitis J44.0 [place] [address] 36124- 4409 Nov, [facility] [id number] [place] [address] 57222- 4195 October, COPD (chronic obstructive pulmonary disease) with acute bronchitis J44.0 ; Abnormal lung sounds R09.89 and Medication refill Z76.0 [place] [id number] [place] [address] 83079- 8521 October, Anxiety associated with depression F41.8 [place] [address] 27152- 8084 Sep, Nausea and vomiting, unspecified intactability, vomiting of unspecified type R11.2 [place] [address] 18298- 7528 Sep, COPD (chronic obstructive pulmonary disease) J44.9 ; Tobacco abuse Z72.0 ; Tear of left supraspinatus tendon, subsequent encounter S46.812D and Type 2 diabetes mellitus with unspecified complications E11.8 [place] [id number] [place] [address] 70748- 9915 Sep, [place] [id number] [place] [address] 26068- 8341 Aug, Left anterior shoulder pain M25.512 [place] [id number] [place] [address] 40616- 2112 Aug, Left anterior shoulder pain M25.512 and Low back pain M54.5 [place] [id number] [place] [address] 86164- 0761 Aug, [place] [id number] [place] [address] 68793- 6175 Aug, [place] [id number] [place] [address] 61882- 9625 Aug, [place] [id number] [place] [address] 43700- 6278 Aug, [place] [id number] [place] [address] 58359- 6061 Aug, Type 2 diabetes mellitus with unspecified complications E11.8 [place] [id number] [place] [address] 01125- 1979 Aug, Type 2 diabetes mellitus with unspecified [...] E55.9 and GERD (gastroesophageal reflux disease) K21.9 [place] [address] 27535- 6442 Aug, [place] [address] 24473- 0809 May, [place] [address] 77471- 1270 Apr, [place] [id number] [place] [address] 03064- 2023 Apr, Type 2 diabetes mellitus with unspecified [...] S49.92XA and Anxiety associated with depression F41.8 [place] [id number] [place] [address] 49565- 8931 Apr, [place] [id number] [place] [address] 44719- 6691 Apr, [place] [id number] [place] [address] 24598- 9698 Apr, [place] [address] [address]- 4399 Mar, [facility] [address], [place] [address]- 8462 Feb, [facility] [address], [place] [address]- 1569 Feb, [facility] [address], [place] [address]- 0824 Jan, [facility] [address], [place] [address]- 1495 Jan, [facility] [address], [place] [address]- 1434 Jan, Type 2 diabetes mellitus with unspecified complications E11.8 ; Essential hypertension I10 and Vitamin D deficiency E55.9 [place] [address] [address]- 8618 Dec, Type 2 diabetes mellitus with unspecified complications E11.8 ; Essential hypertension I10 ; Other chronic pain G89.29 ; Anxiety associated with depression F41.8 ; Bronchitis J40 ; Vitamin D deficiency E55.9 and COPD (chronic obstructive pulmonary disease) J44.9 [place] [address], [place] [address]- 8404 Nov, [place] [address], [place] [address]- 6933 October, [facility] [address], [place] [address]- 9195 October, [place] [address], [place] [address]- 5439 October, [place] [address], [place] [address]- 5111 October, Dysuria R30.0 ; Bronchitis J40 ; Anxiety associated with depression F41.8 and Type 2 diabetes mellitus with unspecified complications E11.8 [place] [address], [place] [address]- 8246 October, Chronic renal insufficiency N18.9 ; Elevated white blood cell count D72.829 and Frequent UTI N39.0 [place] [id number] [place] [address] 58227- 2868 October, Chronic renal insufficiency N18.9 ; Elevated white blood cell count D72.829 and Frequent UTI N39.0 [place] [id number] [place] [address] 72042- 4035 October, [place] [id number] [place] [address] 30046- 4486 Sep, Type 2 diabetes mellitus with unspecified complications E11.8 ; Essential hypertension I10 ; COPD (chronic obstructive pulmonary disease ) J44.9 and Hospital discharge follow-up Z09 [place] [id number] [place] [address] 72339- 2162 Sep, [place] [id number] [place] [address] 41330- 4925 Sep, Dyspnea R06.00 ; Other chronic pain G89.29 ; Dysuria R30.0 ; Diaphoresis R61 ; Jaundice R17 ; COPD (chronic obstructive pulmonary disease) J44.9 ; Type 2 diabetes mellitus with unspecified complications E11.8 ; Excessive daytime sleepiness G47.19 and Oliguria R34 [place] [id number] [place] [address] 10232- 9893 Sep, [place] [id number] [place] [address] 38566- 3706 Sep, Essential hypertension I10 ; Anxiety associated with depression F41.8 ; Mixed hyperlipidemia E78.2 ; Dyspnea R06.00 ; Shortness of breath R06.02 and Chest pain, unspecified R07.9 [address] [place] [address] 06013- 1487 Sep, Chest pain R07.9 ; Hyperlipemia E78.5 ; Type 2 diabetes mellitus with unspecified complications E11.8 ; Essential hypertension I10 ; Other chronic pain G89.29 ; Anxiety associated with depression F41.8 ; COPD ( chronic obstructive pulmonary disease) J44.9 ; Low vitamin D level E55.9 ; Tobacco abuse Z72.0 ; Hypertriglyceridemia E78.1 and Abnormal laboratory test R89.9 [place] [id number] [place] [address] 32469- 2807 Aug, Pneumonia J18.9 ; Hypertriglyceridemia E78.1 ; COPD ( chronic obstructive pulmonary disease) J44.9 and Hyperlipidemia E78.5 [place] [id number] [place] [address] 64077- 5511 Aug, Shortness of breath R06.02 ; Anxiety associated with depression F41.8 and Chest pain, unspecified R07.[address] 0[address]80- 8076 Jul, [address] 93060- 5392 Jun, Anxiety associated with depression F41.8 ; [...] unspecified type R11.2 and Tobacco abuse Z72.0 [place] [id number] [place] [address] 70453- 7569 May, Hyperlipemia E78.5 [place] [id number] [place] [address] 85169- 2129 May, [place] [id number] [place] [address] 93448- 5340 May, Type 2 diabetes mellitus with unspecified complications E11.8 [place] [address] [place] [address]- 0354 May, [address] 49144- 6616 May, Anxiety associated with depression F41.8 ; Type 2 diabetes mellitus with unspecified complications E11.8 ; Essential hypertension I10 ; Peripheral neuropathy G62.9 ; Low back pain M54.5 ; Other chronic pain G89.29 ; GERD (gastroesophageal reflux disease) K21.9 ; Insomnia G47.00 ; COPD (chronic obstructive pulmonary disease) J44.9 ; URI (upper respiratory infection) J06.9 and Depression F32.[address] 04536- 4614 May, Low back pain M54.5 ; Anxiety about health F41.8 ; Generalized anxiety disorder F41.1 and Acute stress reaction F43.[address] 20007- 3112 May, [place] [address] 22320- 5236 Apr, Diabetes E11.9 ; Type 2 diabetes mellitus with unspecified complications E11.8 ; Essential hypertension I10 ; Peripheral neuropathy G62.9 ; Low back pain M54.5 ; Other chronic pain G89.29 ; GERD (gastroesophageal reflux disease) K21.9 ; Anxiety associated with depression F41.8 ; Muscle spasm of calf M62.831 ; Insomnia G47.00 and COPD (chronic obstructive pulmonary disease) J44.9 [facility] [place] [id number] [place] [address] 77878- 7182 May, [address] 49321- 4013 May, IMMUNIZATIONS No Known Immunizations SOCIAL HISTORY Never Assessed REASON FOR VISIT Pain management (chronic)/asthma/htn-tjanssenMA, --Knot under right arm, spot on left lower leg , --hurt ankle PLAN OF CARE Activity Details Follow Up 3 Months, prn Reason:CHM/DM VITAL SIGNS Height 65 in 2017-08-14 Weight 237.4 lbs 2017-08-14 Temperature 98.5 degrees Fahrenheit 2017-08-14 Heart Rate 80 bpm 2017-08-14 Respiratory Rate 20 2017-08-14 BMI 39.50 kg/m2 2017-08-14 Blood pressure systolic 132 mmHg 2017-08-14 Blood pressure diastolic 80 mmHg 2017-08-14 MEDICATIONS Medication Instructions Dosage Frequency Start Date End Date Duration Status Glimepiride 1 MG Orally Once a day 1 tablet with breakfast or the first main meal of the day 24h 90 days Active Fish Oil 1200 MG Orally Once a day 1 capsule 24h Active Invokana 100 mg Orally Once a day 1 tablet 24h Apr, 90 days Active Benazepril HCl 5 mg Orally Once a day 1 tablet 24h Sep, 90 days Active Protonix 40 MG Orally Once a day 1 tablet 24h Feb, 90 days Active Levofloxacin 750 MG Orally Once a day 1 tablet 24h Aug, Aug, 05 days Active Metoprolol Tartrate 25 MG Orally Once a day 1 tablet 24h 90 days Active Paroxetine HCl 20 mg Orally 2 times a day 1 tablet 12h Sep, 90 days Active PredniSONE 20 mg Orally Once a day 1 tablet 24h Aug, Aug, 07 days Active Zofran 8 MG Orally every 8 hours, PRN 1 tablet Jun, 05 days Not-Taking ProAir HFA 108 (90 Base) MCG/ACT Inhalation every 4 hrs 2 puffs as needed 4h Nov, 12 months Active Spiriva HandiHaler 18 mcg Inhalation Once a day INHALE THE CONTENTS OF 1 CAPSULE VIA INHALATION DEVICE EVERY DAY 24h 30 Active Advair Diskus 250-50 MCG/DOSE Inhalation Twice a day 1 puff 12h Sep, 12 months Active Baclofen 10 mg Orally 2 times a day 1 tablet with food or milk 12h 90 days Active Xanax 0.5 MG Orally 3 times a day 1 tablet 8h Active Singulair 10 mg Orally Once a day 1 tablet in the evening 24h 90 days Active Albuterol Sulfate (2.5 MG/3ML) 0.083% Inhalation Three times a day PRN 3 ml 30 days Active Metformin HCl 1000 TAKE 1 TABLET BY MOUTH TWICE DAILY WITH MEALS 90 days Active Metamucil 0.52 GM Orally Three times a day 2 capsules with 8 ounces of liquid 8h Active ReliOn Blood Glucose Test - as directed Sep, Active Aspirin 325 MG Orally Once a day 1 tablet 24h Active Fenofibrate 160 MG Orally Once a day 1 tablet with a meal 24h May, 90 days Active Hydrocodone-Acetaminophen 5-325 MG Orally twice a day 1 tablet as needed 12h Aug, 28 days Active Neurontin 300 MG Orally twice a day 1 capsule before bedtime 12h 90 days Active Chlorthalidone 25 MG Orally Once a day 1/2 tablet in the morning with food 24h Apr, 90 days Active RESULTS No Results PROCEDURES Procedure Date Ordered Result Body Site No Charge August 14, 2017 X-RAY EXAM CHEST 2 VIEWS August 14, 2017 Hemoglobin Test Send Out 0 dollar August 14, 2017 X-RAY EXAM OF ANKLE August 14, 2017 [facility], 2017 INSTRUCTIONS MEDICATIONS ADMINISTERED No Known Medications MEDICAL [...]
--- OUTSIDE RECORDS SUMMARY | 2018-02-19 17:07 | XMS REPORT ---
Author Author KATIE JEFFRIES Organization [facility] Address [address] [place] [address] Care Team Providers Care Tower Cleaner Name Role Phone MERVINJONOKATIE Unavailable PROBLEMS Type Condition ICD9-CM Code [id number] Code Onset Dates Condition Status SNOMED Code Problem Essential hypertension I10 Active 99165250 Problem Low back pain M54.5 Active 074264413 Problem Type 2 diabetes mellitus with unspecified complications E11.8 Active 34713002 Problem COPD exacerbation J44.1 Active 682348382 Problem Chronic renal insufficiency N18.9 Active 833576737 Problem Mixed hyperlipidemia E78.2 Active 715440851 Problem Other chronic pain G89.29 Active 95309466 Problem Vitamin D deficiency E55.9 Active 29434832 Problem Controlled substance agreement signed Z79.899 Active 682288706 Problem Osteoarthritis of acromioclavicular joint M19.019 Active 748179433 Problem Tear of left infraspinatus tendon, subsequent encounter S46.812D Active 6349221 Problem Mild sleep apnea G47.30 Active 94660384 Problem COPD (chronic obstructive pulmonary disease) J44.9 Active 67442507 Problem GERD (gastroesophageal reflux disease) K21.9 Active 928314623 Problem Tear of left supraspinatus tendon, subsequent encounter S46.812D Active 055074031 Problem Anxiety associated with depression F41.8 Active 415952550 Problem Insomnia G47.00 Active 257971238 Problem Peripheral neuropathy G62.9 Active 37801081 ALLERGIES Substance Reaction Event Type Date Status Cymbalta suicidal thoughts Drug Allergy Mar, Active Crestor Unknown Drug Allergy Mar, Active ENCOUNTERS Encounter Location Date Diagnosis [facility] [address] [facility] [id number] [address] Nov, [facility] [address] [facility] [id number] [address] October, BMI 40.0-44.9, adult Z68.41 ; Chronic renal insufficiency N18.9 ; Essential hypertension I10 and Type 2 diabetes mellitus with unspecified complications E11.8 [place] [address] [address] October, GERD (gastroesophageal reflux disease) K21.9 and Anxiety associated with depression F41.8 [place] [address] [address] October, Anxiety associated with depression F41.8 [place] [address] [address] Sep, [place] [address] [address] Sep, GERD (gastroesophageal reflux disease) K21.9 and Anxiety associated with depression F41.8 [place] [address] [address] Aug, [place] [address] [address] Aug, [facility] [place] [address] [address] Aug, Acute recurrent maxillary sinusitis J01.01 [place] [address] [address] Aug, [place] [address] [address] Aug, GERD (gastroesophageal reflux disease) K21.9 and Other chronic pain G89.29 [place] [address] [address] Aug, [facility] [address] [address] Aug, [place] [address] [address] Aug, Controlled substance agreement signed Z79.899 ; [...] and Enlarged lymph nodes in armpit R59.0 [place] [address] [address] Aug, Anxiety associated with depression F41.8 and GERD ( gastroesophageal reflux disease) K21.9 [place] [address] [address] Jul, Controlled substance agreement signed Z79.899 [place] [address] [address] Jun, Anxiety associated with depression F41.8 and GERD ( gastroesophageal reflux disease) K21.9 [place] [address] [place] [id number] [place] [address]36- 6[address] May, Anxiety associated with depression F41.8 and GERD ( gastroesophageal reflux disease) K21.9 [place] [address] [place] [id number] [place] [address] 45163- 3094 Apr, Mixed hyperlipidemia E78.2 [place] [address] [place] [id number] [place] [address] 80708- 5284 Apr, Anxiety associated with depression F41.8 and GERD ( gastroesophageal reflux disease) K21.9 [place] [address] [address] Apr, [place] [address] [address] 98[address] Apr, Type 2 diabetes mellitus with unspecified complications E11.8 [place] [address] 17[address]- 6[address] Apr, [place] [address] [place] [address] 49385- 7[address] Apr, Type 2 diabetes mellitus with unspecified complications E11.8 [place] [address] [place] [id number] [place] [address] 64465- 4734 Apr, [place] [address] [place] [id number] [place] [address] 21180- 0478 Mar, GERD (gastroesophageal reflux disease) K21.9 and Anxiety associated with depression F41.8 [place] [address] [place] [id number] [place] [address] 79086- 9487 Mar, 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 [place] [address] [place] [id number] [place] [address] 39517- 2[address] Mar, Essential hypertension I10 ; Anxiety associated with depression F41.8 ; COPD (chronic obstructive pulmonary disease) J44.9 ; Mixed hyperlipidemia E78.2 ; Vitamin D deficiency E55.9 ; GERD (gastroesophageal reflux disease) K21.9 ; Type 2 diabetes mellitus with unspecified complications E11.8 ; Other chronic pain G89.29 and Chronic renal insufficiency N18.9 [place] [address] [place] [id number] [place] [address] 43825- 5834 Mar, Chronic renal insufficiency N18.9 [place] [address] [place] [id number] [place] [address] 50626- 7194 Feb, GERD (gastroesophageal reflux disease) K21.9 and Type 2 diabetes mellitus with unspecified complications E11.8 [place] [address] [place] [address] 61131- 5774 Feb, Anxiety associated with depression F41.8 and Tear of left supraspinatus tendon, subsequent encounter S46.812D [place] [address] [place] [address] 63716- 5[address] Jan, Pre-operative examination for internal medicine Z01.818 [place] [address] [place] [id number] [place] [address] 52344- 6449 Jan, Anxiety associated with depression F41.8 and Left anterior shoulder pain M25.512 [place] [address] [place] [id number] [place] [address] 63914- 7173 Jan, [place] [address] [place] [id number] [place] [address] 82708- 2257 Jan, [place] [address] [place] [id number] [place] [address] 40196- 7522 Jan, Type 2 diabetes mellitus with unspecified complications E11.8 ; Essential hypertension I10 ; Other chronic pain G89.29 ; GERD ( gastroesophageal reflux disease) K21.9 ; Anxiety associated with depression F41.8 ; Insomnia G47.00 ; Hypertriglyceridemia E78.1 ; Left anterior shoulder pain M25.512 and Tobacco abuse Z72.[address] [address] Dec, Anxiety associated with depression F41.8 and Tear of left supraspinatus tendon, subsequent encounter S46.812D [place] [address] [place] [id number] [place] [address]99- [address] Nov, [place] [id number] [place] [address] 81354- 40[address] Nov, Anxiety associated with depression F41.8 and Tear of left supraspinatus tendon, subsequent encounter S46.812D [place] [address] [place] [address] 64372- 0756 Nov, Abnormal lung sounds R09.89 and COPD (chronic obstructive pulmonary disease) with acute bronchitis J44.0 [place] [address] [place] [id number] [place] [address] 26597- 0335 Nov, [place] [id number] [place] [address] 48958- 13[address] October, COPD (chronic obstructive pulmonary disease) with acute bronchitis J44.0 ; Abnormal lung sounds R09.89 and Medication refill Z76.0 [place] [address] [place] [id number] [place] [address] 18412- 3931 October, Anxiety associated with depression F41.8 [place] [address] [place] [id number] [place] [address] 12210- 6899 Sep, Nausea and vomiting, unspecified intactability, vomiting of unspecified type R11.2 [place] [address] [place] [id number] [place] [address] 20057- 0964 Sep, COPD (chronic obstructive pulmonary disease) J44.9 ; Tobacco abuse Z72.0 ; Tear of left supraspinatus tendon, subsequent encounter S46.812D and Type 2 diabetes mellitus with unspecified complications E11.8 [place] [address] [place] [id number] [place] [address] 51808- 3174 Sep, [place] [address] [place] [id number] [place] [address] 85072- 3485 Aug, Left anterior shoulder pain M25.512 [place] [address] [place] [id number] [place] [address] 88236- 9952 Aug, Left anterior shoulder pain M25.512 and Low back pain M54.5 [place] [address] [place] [id number] [place] [address] 90830- 8271 Aug, [place] [address] [place] [id number] [place] [address] 86053- 6950 Aug, [place] [address] [place] [id number] [place] [address] 83624- 9734 Aug, [place] [address] [place] [id number] [place] [address] 88203- 2108 Aug, [place] [address] [place] [id number] [place] [address] 41710- 1643 Aug, Type 2 diabetes mellitus with unspecified complications E11.8 [place] [address] [place] [id number] [place] [address] 48137- 4837 Aug, Type 2 diabetes mellitus with unspecified [...] E55.9 and GERD (gastroesophageal reflux disease) K21.9 [place] [address] 43658- 14[address] Aug, [place] [address] 61785- 9247 May, [place] [address] 30[address]- 16[address] Apr, [place] [address] [place] [id number] [place] [address] 81379- 5587 Apr, Type 2 diabetes mellitus with unspecified [...] S49.92XA and Anxiety associated with depression F41.8 [place] [address] [place] [id number] [place] [address] 06599- 1534 Apr, [place] [address] [place] [id number] [place] [address] 44767- 7587 Apr, [place] [address] [place] [id number] [place] [address] 12067- 4776 Apr, [place] [address] [place] [id number] [place] [address] 11296- 5575 Mar, [place] [address] [place] [id number] [place] [address] 42269- 0384 Feb, [place] [address] [address] Feb, [place] [address] [place] [id number] [place] [address] 01226- 1208 Jan, [place] [address] [place] [id number] [place] [address] 79574- 0709 Jan, [place] [address] [place] [id number] [place] [address] 52866- 4097 Jan, Type 2 diabetes mellitus with unspecified complications E11.8 ; Essential hypertension I10 and Vitamin D deficiency E55.9 [place] [address] [place] [id number] [place] [address] 35363- 4265 Dec, Type 2 diabetes mellitus with unspecified complications E11.8 ; Essential hypertension I10 ; Other chronic pain G89.29 ; Anxiety associated with depression F41.8 ; Bronchitis J40 ; Vitamin D deficiency E55.9 and COPD (chronic obstructive pulmonary disease) J44.9 [place] [address] [place] [id number] [place] [address] 26287- 5300 Nov, [place] [address] [place] [id number] [place] [address] 90916- 7169 October, [place] [address] [place] [id number] [place] [address] 92601- 1953 October, [place] [address] [place] [address] 62618- 6426 October, [place] [address] [place] [id number] [place] [address] 94999- 3580 October, Dysuria R30.0 ; Bronchitis J40 ; Anxiety associated with depression F41.8 and Type 2 diabetes mellitus with unspecified complications E11.8 [place] [address] [place] [address] 22588- 3352 October, Chronic renal insufficiency N18.9 ; Elevated white blood cell count D72.829 and Frequent UTI N39.0 [place] [address] [place] [id number] [place] [address] 16459- 1796 October, Chronic renal insufficiency N18.9 ; Elevated white blood cell count D72.829 and Frequent UTI N39.0 [place] [address] 54002- 8482 October, [place] [address] 29686- 4529 Sep, Type 2 diabetes mellitus with unspecified complications E11.8 ; Essential hypertension I10 ; COPD (chronic obstructive pulmonary disease ) J44.9 and Hospital discharge follow-up Z09 [place] [address] 61415- 3142 Sep, [place] [address] 73722- 1104 Sep, Dyspnea R06.00 ; Other chronic pain G89.29 ; Dysuria R30.0 ; Diaphoresis R61 ; Jaundice R17 ; COPD (chronic obstructive pulmonary disease) J44.9 ; Type 2 diabetes mellitus with unspecified complications E11.8 ; Excessive daytime sleepiness G47.19 and Oliguria R34 [place] [address] 67523- 1517 Sep, [place] [address] [place] [id number] [place] [address] 96128- 0155 Sep, Essential hypertension I10 ; Anxiety associated with depression F41.8 ; Mixed hyperlipidemia E78.2 ; Dyspnea R06.00 ; Shortness of breath R06.02 and Chest pain, unspecified R07.9 [place] [address] [place] [id number] [place] [address] 06255- 1486 Sep, Chest pain R07.9 ; Hyperlipemia E78.5 ; Type 2 diabetes mellitus with unspecified complications E11.8 ; Essential hypertension I10 ; Other chronic pain G89.29 ; Anxiety associated with depression F41.8 ; COPD ( chronic obstructive pulmonary disease) J44.9 ; Low vitamin D level E55.9 ; Tobacco abuse Z72.0 ; Hypertriglyceridemia E78.1 and Abnormal laboratory test R89.9 [place] [address] [address] Aug, Pneumonia J18.9 ; Hypertriglyceridemia E78.1 ; COPD ( chronic obstructive pulmonary disease) J44.9 and Hyperlipidemia E78.5 [place] [address] [place] [address] 31834- 8101 Aug, Shortness of breath R06.02 ; Anxiety associated with depression F41.8 and Chest pain, unspecified R07.9 [place] [address] [place] [id number] [place] [address] 31759- 1841 Jul, [place] [id number] [place] [address] 64097- 8863 Jun, Anxiety associated with depression F41.8 ; [...] unspecified type R11.2 and Tobacco abuse Z72.0 [place] [address] [place] [address] 18411- 4311 May, Hyperlipemia E78.5 [place] [address] [place] [id number] [place] [address] 57177- 5042 May, [place] [address] [place] [id number] [place] [address] 52054- 1752 May, Type 2 diabetes mellitus with unspecified complications E11.8 [place] [address] [place] [id number] [place] [address] 84829- 7962 May, [place] [address] [place] [address] 15199- 2438 May, Anxiety associated with depression F41.8 ; Type 2 diabetes mellitus with unspecified complications E11.8 ; Essential hypertension I10 ; Peripheral neuropathy G62.9 ; Low back pain M54.5 ; Other chronic pain G89.29 ; GERD (gastroesophageal reflux disease) K21.9 ; Insomnia G47.00 ; COPD (chronic obstructive pulmonary disease) J44.9 ; URI (upper respiratory infection) J06.9 and Depression F32.9 [place] [address] 56905- 0071 May, Low back pain M54.5 ; Anxiety about health F41.8 ; Generalized anxiety disorder F41.1 and Acute stress reaction F43.[address] [address]- [address] May, [address] 49871- 7000 Apr, Diabetes E11.9 ; Type 2 diabetes mellitus with unspecified complications E11.8 ; Essential hypertension I10 ; Peripheral neuropathy G62.9 ; Low back pain M54.5 ; Other chronic pain G89.29 ; GERD (gastroesophageal reflux disease) K21.9 ; Anxiety associated with depression F41.8 ; Muscle spasm of calf M62.831 ; Insomnia G47.00 and COPD (chronic obstructive pulmonary disease) J44.9 [place] [address] 79737- 2243 May, [address] 690[address]- 3815 May, IMMUNIZATIONS No Known Immunizations SOCIAL HISTORY Never Assessed REASON FOR VISIT Trisha Bustillos/COPD Jordin Frank RN, Per [facility] A1C and Eye Exam PLAN OF CARE Activity Details Follow Up 3 Months Reason:[facility] Height 65 in 2017-03-24 Weight 230.2 lbs 2017-03-24 Temperature 98.2 degrees Fahrenheit 2017-03-24 Heart Rate 88 bpm 2017-03-24 Respiratory Rate 20 2017-03-24 BMI 38.30 kg/m2 2017-03-24 Blood pressure systolic 150 mmHg 2017-03-24 Blood pressure diastolic 92 mmHg 2017-03-24 MEDICATIONS Medication Instructions Dosage Frequency Start Date End Date Duration Status Spiriva HandiHaler 18 INHALE THE CONTENTS OF 1 CAPSULE VIA INHALATION DEVICE EVERY DAY 30 Active ProAir HFA 108 (90 Base) MCG/ACT Inhalation every 4 hrs 2 puffs as needed 4h 20 Nov, 2016 Active Xanax 0.5 MG Orally Twice a day and 1/2 at HS 1 tablet 28 days Active Metoprolol Tartrate 25 MG Orally twice a day 1 tablet with food 12h 90 days Active Aspirin 325 MG Orally Once a day 1 tablet 24h Active Benazepril HCl 5 mg Orally Once a day 1 tablet 24h 29 Sep, 2015 90 days Active Metformin HCl 500 MG Orally Twice a day 1 tablet with meals 12h Apr, 30 days Active Singulair 10 mg Orally Once a day 1 tablet in the evening 24h 90 days Active Levaquin 250 MG Active Metamucil 0.52 GM Orally Three times a day 2 capsules with 8 ounces of liquid 8h Active Protonix 40 MG Orally Once a day 1 tablet 24h Feb, 30 day(s) Active Zofran 8 MG Orally every 8 hours, PRN 1 tablet Jun, 05 days Active Fenofibrate 54 MG Orally Once a day 1 tablet with a meal 24h May, 90 days Active Hydrocodone-Acetaminophen 5-325 MG Orally twice a day 1 tablet as needed 12h Feb, Active Albuterol Sulfate (2.5 MG/3ML) 0.083% Inhalation Three times a day PRN 3 ml 30 days Active Baclofen 10 mg Orally 2 times a day 1 tablet with food or milk 12h 90 days Active Januvia 50 mg Orally Once a day 1 tablet 24h Aug, 90 days Active Advair Diskus 250-50 MCG/DOSE Inhalation Twice a day 1 puff 12h Sep, 12 months Active Paroxetine HCl 20 mg Orally 2 times a day 1 tablet 12h Sep, 90 days Active Fish Oil 1200 MG Orally Once a day 1 capsule 24h Active ReliOn Blood Glucose Test - as directed Sep, Active Neurontin 300 MG Orally twice a day 1 capsule before bedtime 12h Mar, 30 day(s) Active RESULTS Name Result Date Reference Range UA LONG DIP (IN HOUSE) 2017-03-24 Lot # [id number] Exp date 01/09/18 Clarity slightly cloudy Color yellow Odor none GLU Negative RAMU Negative KET Negative SG 1.010 BLO Negative pH 7.0 Protein Negative URO 0.2 NIT Negative VINCENT Trace Lot # [id number] Exp date 09/2017 A1C (IN HOUSE) 2017-03-24 A1C IN HOUSE 6.9 4.3 - 5.6 % Previous A1c 6.1 Lot [id number] Exp date 12/2017 URINE PROTEIN TO CREATININE RATIO 2017-03-24 Creatinine, Urine 48.6 Not Estab. Protein,Total,Urine 5.1 Not Estab. Protein/Creat Ratio 105 0-200 CBC 2017-03-24 WBC 9.4 3.4-10.8 RBC 4.16 3.77-5.28 Hemoglobin 11.2 11.1-15.9 Hematocrit 33.9 34.0-46.6 MCV 82 79-97 MCH 26.9 26.6-33.0 MCHC 33.0 31.5-35.7 RDW 16.2 12.3-15.4 Platelets 645 150-379 Neutrophils 61 Not Estab. Lymphs 24 Not Estab. Monocytes 10 Not Estab. Eos 2 Not Estab. Basos 1 Not Estab. Neutrophils (Absolute) 5.8 1.4-7.0 Lymphs (Absolute) 2.2 0.7-3.1 Monocytes(Absolute) 1.0 0.1-0.9 Eos (Absolute) 0.2 0.0-0.4 Baso (Absolute) 0.1 0.0-0.2 Immature Granulocytes 2 Not Estab. Immature Grans (Abs) 0.2 0.0-0.1 CULTURE, URINE 2017-03-24 Urine Culture, Routine Final report Result 1 No growth RENAL PROFILE 2017-03-24 Glucose, Serum 80 65-99 BUN 13 6-24 Creatinine, Serum 1.02 0.57-1.00 eGFR If NonAfricn Am 62 >59 eGFR If Africn Am 71 >59 BUN/Creatinine Ratio 13 9-23 Sodium, Serum 142 134-144 Potassium, Serum 5.3 3.5-5.2 Chloride, Serum 95 96-106 Carbon Dioxide, Total 25 18-29 Calcium, Serum 9.7 8.7-10.2 Phosphorus, Serum 3.6 2.5-4.5 Albumin, Serum 4.1 3.5-5.5 PROCEDURES Procedure Date Ordered Result Body Site GLYCATED HEMOGLOBIN TEST Mar 24, 2017 [facility], 2017 VENIPUNCT, ROUTINE* Mar 24, 2017 URINALYSIS, AUTO, W/O SCOPE Mar 24, 2017 INSTRUCTIONS MEDICATIONS ADMINISTERED No Known Medications [...] hyperthyroidism Medical History Hereditary and idiopathic neuropathy Surgical History section x 3 Surgical History hernia repair Surgical History hysterectomy Surgical History Heart cath 11/24/2015 Surgical History rotator cuff 04/24/17 Hospitalization History surgeries Hospitalization History Acute Renal Failure, Ecaxerbation COPD, Hyponatremia 10/02/15 Hospitalization History COPD x 3 days 03/14/2017
--- OUTSIDE RECORDS SUMMARY | 2018-02-19 17:08 | XMS REPORT ---
Author Author KATIE JEFFRIES Organization 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 Name Role Phone KATIE JEFFRIES Unavailable PROBLEMS Type Condition ICD9-CM Code COS01-JO Code Onset Dates Condition Status SNOMED Code Problem COPD (chronic obstructive pulmonary disease) J44.9 Active 58637156 Problem Low back pain M54.5 Active 037789290 Problem GERD (gastroesophageal reflux disease) K21.9 Active 934389700 Problem Chronic renal insufficiency N18.9 Active 882923418 Problem Vitamin D deficiency E55.9 Active 43886141 Problem Type 2 diabetes mellitus with unspecified complications E11.8 Active 86839540 Problem Other chronic pain G89.29 Active 72638097 Problem Mixed hyperlipidemia E78.2 Active 794844944 Problem Controlled substance agreement signed Z79.899 Active 011750239 Problem Anxiety associated with depression F41.8 Active 504155240 Problem Peripheral neuropathy G62.9 Active 46121852 Problem Mild sleep apnea G47.30 Active 24978150 Problem Essential hypertension I10 Active 50045935 Problem Osteoarthritis of acromioclavicular joint M19.019 Active 914030404 Problem Insomnia G47.00 Active 589246280 ALLERGIES No Information ENCOUNTERS Encounter Location Date Diagnosis [facility] [id number], [place] [address] Dec, [facility] [id number], [place] [address] Dec, Type 2 diabetes mellitus with unspecified complications E11.8 [facility] [id number], [place] [address] Dec, [facility] [id number] [address] Dec, [facility] [address] [facility] [id number] [address] Dec, [facility] [address] [facility] [id number] [place] [address] Dec, [facility] [address] [facility] [id number], [place] [address] Dec, [facility] [address] [address] 25[address] Dec, Other chronic pain G89.29 and Anxiety associated with depression F41.8 [facility] [address] [facility] [id number] [place] [address] Dec, Type 2 diabetes mellitus with unspecified complications E11.8 [facility] [id number], [place] [address] Nov, [facility] [address] [address] Nov, [facility] [id number] [address] Nov, [facility] [address] [place] [address] Nov, [facility] [address], [place] [address] Nov, Type 2 diabetes mellitus with unspecified complications E11.8 [facility] [address], [place] [address] Nov, [facility] [address] [facility] [id number], [place] [address] Nov, Type 2 diabetes mellitus with unspecified complications E11.8 [facility] [id number] [address] Nov, Other chronic pain G89.29 and Anxiety associated with depression F41.8 [facility] [id number], [place] [address] Nov, Chronic renal insufficiency N18.9 [facility] [address], [place] [address] Nov, Other chronic pain G89.29 [facility] [address], [place] [address] Nov, Type 2 diabetes mellitus with unspecified complications E11.8 [facility] [address], [place] [address] October, [facility] [address], [place] [address] October, [facility] [address], [place] [address] 6[address] October, Type 2 diabetes mellitus with unspecified complications E11.8 [facility] [address], [place] [address] October, [facility] [address], [place] [address] October, [facility] [address], [place] [address] October, Type 2 diabetes mellitus with unspecified complications E11.8 [facility] [address], [place] [address] October, [facility] [id number], [place] [address] October, [facility] [id number], [place] [address] October, Type 2 diabetes mellitus with unspecified complications E11.8 [facility] [id number], [place] [address] October, Type 2 diabetes mellitus with unspecified complications E11.8 ; Essential hypertension I10 ; Chronic renal insufficiency N18.9 ; BMI 40.0-44.9, adult Z68.41 ; Other chronic pain G89.29 ; Anxiety associated with depression F41.8 and Right medial knee pain M25.561 [place] [address] [address] October, GERD (gastroesophageal reflux disease) K21.9 and Anxiety associated with depression F41.8 [place] [id number] [place] [address]86- 9174 October, Anxiety associated with depression F41.8 [place] [address] [address]- 7967 Sep, [place] [address] [address]- 6[address] Sep, GERD (gastroesophageal reflux disease) K21.9 and Anxiety associated with depression F41.8 [place] [address] [address]- 6683 Aug, [place] [address] [address]- [address]684 Aug, [facility] [address] [address] Aug, Acute recurrent maxillary sinusitis J01.01 [place] [address] [address]- 6[address] Aug, [place] [id number] [place] [address] 10571- 8951 Aug, GERD (gastroesophageal reflux disease) K21.9 and Other chronic pain G89.29 [place] [id number] [place] [address] 60546- 7986 Aug, [facility] [address] [address] Aug, [facility] [id number] [place] [address] 24076- 5974 Aug, Controlled substance agreement signed Z79.899 ; [...] lymph nodes in armpit R59.0 [place] [address] [address]- [address] Aug, Anxiety associated with depression F41.8 and GERD ( gastroesophageal reflux disease) K21.[address] [address] Jul, Controlled substance agreement signed Z79.899 [place] [address] [address] Jun, Anxiety associated with depression F41.8 and GERD ( gastroesophageal reflux disease) K21.9 [place] [address] [address]- [address]69 May, Anxiety associated with depression F41.8 and GERD ( gastroesophageal reflux disease) K21.9 [place] [id number] [place] [address]65- 1888 Apr, Mixed hyperlipidemia E78.2 [place] [id number] [place] [address] 45490- 1744 Apr, Anxiety associated with depression F41.8 and GERD ( gastroesophageal reflux disease) K21.9 [place] [id number] [place] [address] 45747- 9165 Apr, [place] [address] [address]16 Apr, Type 2 diabetes mellitus with unspecified complications E11.8 [place] [address] [address]- 6881 Apr, [place] [address] [place] [address]- 7289 Apr, Type 2 diabetes mellitus with unspecified complications E11.8 [place] [id number] [place] [address] 65271- 1722 Apr, [place] [id number] [place] [address]89- 5736 Mar, GERD (gastroesophageal reflux disease) K21.9 and Anxiety associated with depression F41.8 [place] [address] 77257- 0592 Mar, 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 [place] [address] [address]- 10[address] Mar, Essential hypertension I10 ; Anxiety associated with depression F41.8 ; COPD (chronic obstructive pulmonary disease) J44.9 ; Mixed hyperlipidemia E78.2 ; Vitamin D deficiency E55.9 ; GERD (gastroesophageal reflux disease) K21.9 ; Type 2 diabetes mellitus with unspecified complications E11.8 ; Other chronic pain G89.29 and Chronic renal insufficiency N18.9 [place] [id number] [place] [address]26- 8901 Mar, Chronic renal insufficiency N18.9 [place] [id number] [place] [address] 19907- 0737 Feb, GERD (gastroesophageal reflux disease) K21.9 and Type 2 diabetes mellitus with unspecified complications E11.8 [place] [id number] [place] [address] 37075- 0939 Feb, Anxiety associated with depression F41.8 and Tear of left supraspinatus tendon, subsequent encounter S46.812D [place] [address] [address]- 97[address] Jan, Pre-operative examination for internal medicine Z01.818 [place] [id number] [place] [address] 40477- 5393 Jan, Anxiety associated with depression F41.8 and Left anterior shoulder pain M25.512 [place] [id number] [place] [address] 24562- 5530 Jan, [place] [id number] [place] [address] 08190- 5405 Jan, [place] [id number] [place] [address] 21243- 4441 Jan, Type 2 diabetes mellitus with unspecified complications E11.8 ; Essential hypertension I10 ; Other chronic pain G89.29 ; GERD ( gastroesophageal reflux disease) K21.9 ; Anxiety associated with depression F41.8 ; Insomnia G47.00 ; Hypertriglyceridemia E78.1 ; Left anterior shoulder pain M25.512 and Tobacco abuse Z72.0 [place] [id number] [place] [address] 49882- 2273 Dec, Anxiety associated with depression F41.8 and Tear of left supraspinatus tendon, subsequent encounter S46.812D [place] [id number] [place] [address] 79511- 1203 Nov, [place] [id number] [place] [address] 49944- 7298 Nov, Anxiety associated with depression F41.8 and Tear of left supraspinatus tendon, subsequent encounter S46.812D [place] [id number] [place] [address] 10366- 4550 Nov, Abnormal lung sounds R09.89 and COPD (chronic obstructive pulmonary disease) with acute bronchitis J44.0 [place] [id number] [place] [address] 42331- 5536 Nov, [place] [id number] [place] [address] 57354- 0591 October, COPD (chronic obstructive pulmonary disease) with acute bronchitis J44.0 ; Abnormal lung sounds R09.89 and Medication refill Z76.0 [place] [id number] [place] [address] 09164- 2704 October, Anxiety associated with depression F41.8 [facility] [id number] [place] [address] 13106- 3945 Sep, Nausea and vomiting, unspecified intactability, vomiting of unspecified type R11.2 [place] [id number] [place] [address] 30433- 3945 Sep, COPD (chronic obstructive pulmonary disease) J44.9 ; Tobacco abuse Z72.0 ; Tear of left supraspinatus tendon, subsequent encounter S46.812D and Type 2 diabetes mellitus with unspecified complications E11.8 [place] [id number] [place] [address] 14021- 9007 Sep, [place] [id number] [place] [address] 24745- 9669 Aug, Left anterior shoulder pain M25.512 [place] [address] 82215- 9144 Aug, Left anterior shoulder pain M25.512 and Low back pain M54.5 [place] [id number] [place] [address] 18041- 8473 Aug, [place] [id number] [place] [address] 00940- 0158 Aug, [place] [id number] [place] [address] 41575- 1615 Aug, [place] [id number] [place] [address] 66659- 2329 Aug, [facility] [id number] [place] [address] 34900- 7599 Aug, Type 2 diabetes mellitus with unspecified complications E11.8 [facility] [id number] [place] [address] 13338- 1816 Aug, Type 2 diabetes mellitus with unspecified [...] E55.9 and GERD (gastroesophageal reflux disease) K21.9 [place] [id number] [place] [address] 99873- 6682 Aug, [place] [address] 33122- 9856 May, [place] [address] 11230- 6682 Apr, [place] [address] 63051- 5832 Apr, Type 2 diabetes mellitus with unspecified [...] S49.92XA and Anxiety associated with depression F41.8 [place] [id number] [place] [address] 89404- 9257 Apr, [place] [id number] [place] [address] 33600- 2843 Apr, [place] [id number] [place] [address] 49257- 0252 Apr, [place] [address] 86633- 3994 Mar, [place] [id number] [place] [address] 79396- 8937 Feb, [place] [address] 53777- 5910 Feb, [place] [address], [place] [address]- 2465 Jan, [place] [id number] [place] [address] 74955- 9880 Jan, [place] [address], [place] [address]- 9810 Jan, Type 2 diabetes mellitus with unspecified complications E11.8 ; Essential hypertension I10 and Vitamin D deficiency E55.9 [place] [address], [place] [address]- 7459 Dec, Type 2 diabetes mellitus with unspecified complications E11.8 ; Essential hypertension I10 ; Other chronic pain G89.29 ; Anxiety associated with depression F41.8 ; Bronchitis J40 ; Vitamin D deficiency E55.9 and COPD (chronic obstructive pulmonary disease) J44.9 [place] [id number] [place] [address] 34284- 4350 Nov, [place] [address] [place] [address] 69275- 9168 October, [place] [id number] [place] [address] 48534- 2267 October, [place] [address], [place] [address]- 3449 October, [place] [address], [place] [address]- 3145 October, Dysuria R30.0 ; Bronchitis J40 ; Anxiety associated with depression F41.8 and Type 2 diabetes mellitus with unspecified complications E11.8 [place] [address], [place] [address]- 2109 October, Chronic renal insufficiency N18.9 ; Elevated white blood cell count D72.829 and Frequent UTI N39.0 [place] [address], [place] [address]- 7867 October, Chronic renal insufficiency N18.9 ; Elevated white blood cell count D72.829 and Frequent UTI N39.0 [place] [address] 29820- 2026 October, [place] [address] 66997- 6609 Sep, Type 2 diabetes mellitus with unspecified complications E11.8 ; Essential hypertension I10 ; COPD (chronic obstructive pulmonary disease ) J44.9 and Hospital discharge follow-up Z09 [place] [address] 76532- 2162 Sep, [place] [address] 49897- 6646 Sep, Dyspnea R06.00 ; Other chronic pain G89.29 ; Dysuria R30.0 ; Diaphoresis R61 ; Jaundice R17 ; COPD (chronic obstructive pulmonary disease) J44.9 ; Type 2 diabetes mellitus with unspecified complications E11.8 ; Excessive daytime sleepiness G47.19 and Oliguria R34 [place] [address] 29173- 6874 Sep, [address] 54843- 1853 Sep, Essential hypertension I10 ; Anxiety associated with depression F41.8 ; Mixed hyperlipidemia E78.2 ; Dyspnea R06.00 ; Shortness of breath R06.02 and Chest pain, unspecified R07.9 [place] [id number] [place] [address] 20691- 8179 Sep, Chest pain R07.9 ; Hyperlipemia E78.5 ; Type 2 diabetes mellitus with unspecified complications E11.8 ; Essential hypertension I10 ; Other chronic pain G89.29 ; Anxiety associated with depression F41.8 ; COPD ( chronic obstructive pulmonary disease) J44.9 ; Low vitamin D level E55.9 ; Tobacco abuse Z72.0 ; Hypertriglyceridemia E78.1 and Abnormal laboratory test R89.[address] 22786- 5353 Aug, Pneumonia J18.9 ; Hypertriglyceridemia E78.1 ; COPD ( chronic obstructive pulmonary disease) J44.9 and Hyperlipidemia E78.5 [place] [id number] [place] [address] 80961- 7698 Aug, Shortness of breath R06.02 ; Anxiety associated with depression F41.8 and Chest pain, unspecified R07.9 [place] [id number] [place] [address] 67320- 0112 Jul, [place] [id number] [place] [address] 16344- 3857 Jun, Anxiety associated with depression F41.8 ; [...] unspecified type R11.2 and Tobacco abuse Z72.0 [place] [id number] [place] [address] 44640- 8491 May, Hyperlipemia E78.5 [place] [id number] [place] [address] 44587- 9492 May, [place] [id number] [place] [address] 78543- 1138 May, Type 2 diabetes mellitus with unspecified complications E11.8 [place] [id number] [place] [address] 29331- 3907 May, [place] [id number] [place] [address] 18552- 4195 May, Anxiety associated with depression F41.8 ; Type 2 diabetes mellitus with unspecified complications E11.8 ; Essential hypertension I10 ; Peripheral neuropathy G62.9 ; Low back pain M54.5 ; Other chronic pain G89.29 ; GERD (gastroesophageal reflux disease) K21.9 ; Insomnia G47.00 ; COPD (chronic obstructive pulmonary disease) J44.9 ; URI (upper respiratory infection) J06.9 and Depression F32.[address] [place] [address] 11111- 3403 08 May, 2015 Low back pain M54.5 ; Anxiety about health F41.8 ; Generalized anxiety disorder F41.1 and Acute stress reaction F43.0 [place] [id number] [place] [address] 51516- 0687 May, [address] 77124- 7674 Apr, Diabetes E11.9 ; Type 2 diabetes mellitus with unspecified complications E11.8 ; Essential hypertension I10 ; Peripheral neuropathy G62.9 ; Low back pain M54.5 ; Other chronic pain G89.29 ; GERD (gastroesophageal reflux disease) K21.9 ; Anxiety associated with depression F41.8 ; Muscle spasm of calf M62.831 ; Insomnia G47.00 and COPD (chronic obstructive pulmonary disease) J44.9 [place] [id number] [place] [address] 54904- 7015 May, [place] [id number] [place] [address] 23804- 1591 May, IMMUNIZATIONS No Known Immunizations SOCIAL HISTORY Never Assessed REASON FOR VISIT Medication refill request PLAN OF CARE VITAL SIGNS MEDICATIONS Unknown [...] Heart cath 11/24/2015 Surgical History rotator cuff 11/13/17 Hospitalization History surgeries Hospitalization History Acute Renal Failure, Ecaxerbation COPD, Hyponatremia 10/02/15 Hospitalization History COPD x 3 days 03/14/2017
--- OUTSIDE RECORDS SUMMARY | 2018-02-19 17:08 | XMS REPORT ---
Author Author KATIE JEFFRIES Organization [facility] Address [address] [place] [address] Care Team Providers Care Wicker Worker Name Role Phone KATIE JEFFRIES Unavailable PROBLEMS Type Condition ICD9-CM Code WGF85-UM Code Onset Dates Condition Status SNOMED Code Problem COPD (chronic obstructive pulmonary disease) J44.9 Active 05413972 Problem Low back pain M54.5 Active 502021121 Problem GERD (gastroesophageal reflux disease) K21.9 Active 994041469 Problem Chronic renal insufficiency N18.9 Active 368899817 Problem Vitamin D deficiency E55.9 Active 14114461 Problem Type 2 diabetes mellitus with unspecified complications E11.8 Active 15690271 Problem Other chronic pain G89.29 Active 44333479 Problem Mixed hyperlipidemia E78.2 Active 591843773 Problem Controlled substance agreement signed Z79.899 Active 401252546 Problem Anxiety associated with depression F41.8 Active 755624516 Problem Peripheral neuropathy G62.9 Active 97594485 Problem Mild sleep apnea G47.30 Active 13673996 Problem Essential hypertension I10 Active 48037945 Problem Osteoarthritis of acromioclavicular joint M19.019 Active 492429332 Problem Insomnia G47.00 Active 641500548 ALLERGIES No Information ENCOUNTERS Encounter Location Date Diagnosis [facility] [id number] [address] Dec, [facility] [id number] [address] Dec, Type 2 diabetes mellitus with unspecified complications E11.8 [facility] [id number] [address] Dec, [facility] [id number] [address] Dec, [facility] [address] [facility] [id number] [address] Dec, [facility] [address] [facility] [id number] [place] [address] 25[address] Dec, [facility] [address] [facility] [id number] [address] Dec, [facility] [id number] [place] [address] 25[address] Dec, Other chronic pain G89.29 and Anxiety associated with depression F41.8 [facility] [address] [facility] [id number] [place] [address] Dec, Type 2 diabetes mellitus with unspecified complications E11.8 [facility] [id number] [address] Nov, [facility] [id number] [address] Nov, [facility] [id number] [address] Nov, [facility] [id number] [place] [address] Nov, [facility] [id number] [address] Nov, Type 2 diabetes mellitus with unspecified complications E11.8 [facility] [address] [address] Nov, [facility] [address] [facility] [id number] [address] Nov, Type 2 diabetes mellitus with unspecified complications E11.8 [facility] [id number] [place] [address] Nov, Other chronic pain G89.29 and Anxiety associated with depression F41.8 [facility] [id number] [address] Nov, Chronic renal insufficiency N18.9 [facility] [address] [address] Nov, Other chronic pain G89.29 [facility] [address] [address] Nov, Type 2 diabetes mellitus with unspecified complications E11.8 [facility] [address] [address] October, [facility] [address] [address] October, [facility] [address] [address] October, Type 2 diabetes mellitus with unspecified complications E11.8 [facility] [address] [address] 7[address] October, [facility] [address] [address] October, [facility] [address] [address] October, Type 2 diabetes mellitus with unspecified complications E11.8 [facility] [address] [address] October, [facility] [id number] [address] October, [facility] [id number] [address] October, Type 2 diabetes mellitus with unspecified complications E11.8 [facility] [id number] [address] October, Type 2 diabetes mellitus with unspecified complications E11.8 ; Essential hypertension I10 ; Chronic renal insufficiency N18.9 ; BMI 40.0-44.9, adult Z68.41 ; Other chronic pain G89.29 ; Anxiety associated with depression F41.8 and Right medial knee pain M25.561 [address] [address] October, GERD (gastroesophageal reflux disease) K21.9 and Anxiety associated with depression F41.8 [address] [id number] [place] [address] 69[address]- 9935 October, Anxiety associated with depression F41.8 [place] [address] [address]- [address] Sep, [place] [address] [address]- [address] Sep, GERD (gastroesophageal reflux disease) K21.9 and Anxiety associated with depression F41.8 [place] [address] [address] Aug, [place] [address] [address] Aug, [facility] [address] [address] Aug, Acute recurrent maxillary sinusitis J01.01 [place] [address] [address]- [address] Aug, [place] [id number] [place] [address] 26635- 1300 Aug, GERD (gastroesophageal reflux disease) K21.9 and Other chronic pain G89.29 [facility] [id number] [place] [address] 60607- 6000 Aug, [facility] [address] [address] Aug, [facility] [id number] [place] [address] 60014- 2422 Aug, Controlled substance agreement signed Z79.899 ; [...] and Enlarged lymph nodes in armpit R59.0 [place] [address] [address] Aug, Anxiety associated with depression F41.8 and GERD ( gastroesophageal reflux disease) K21.[address] [address] Jul, Controlled substance agreement signed Z79.899 [place] [address] [address]- [address] Jun, Anxiety associated with depression F41.8 and GERD ( gastroesophageal reflux disease) K21.9 [place] [address] [address]- [address]90 May, Anxiety associated with depression F41.8 and GERD ( gastroesophageal reflux disease) K21.9 [facility] [id number] [place] [address]602- 1029 Apr, Mixed hyperlipidemia E78.2 [facility] [id number] [place] [address] 59155- 7622 Apr, Anxiety associated with depression F41.8 and GERD ( gastroesophageal reflux disease) K21.9 [facility] [facility] [id number] [place] [address] 31491- 6357 Apr, [place] [address] [address] 3048 Apr, Type 2 diabetes mellitus with unspecified complications E11.8 [facility] [address] [address]- [address] Apr, [place] [address] [place] [address]- 3940 Apr, Type 2 diabetes mellitus with unspecified complications E11.8 [facility] [id number] [place] [address] 9[address]11- 0075 Apr, [facility] [id number] [place] [address] 09090- 3169 Mar, GERD (gastroesophageal reflux disease) K21.9 and Anxiety associated with depression F41.8 [place] [address] [address]- [address]196 Mar, 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 [place] [address] [address]- 6578 Mar, Essential hypertension I10 ; Anxiety associated with depression F41.8 ; COPD (chronic obstructive pulmonary disease) J44.9 ; Mixed hyperlipidemia E78.2 ; Vitamin D deficiency E55.9 ; GERD (gastroesophageal reflux disease) K21.9 ; Type 2 diabetes mellitus with unspecified complications E11.8 ; Other chronic pain G89.29 and Chronic renal insufficiency N18.9 [place] [id number] [place] [address] 01095- 9844 Mar, Chronic renal insufficiency N18.9 [facility] [id number] [place] [address] 45835- 8697 Feb, GERD (gastroesophageal reflux disease) K21.9 and Type 2 diabetes mellitus with unspecified complications E11.8 [place] [facility] [id number] [place] [address] 36370- 5214 Feb, Anxiety associated with depression F41.8 and Tear of left supraspinatus tendon, subsequent encounter S46.812D [place] [address] [address]- 7896 Jan, Pre-operative examination for internal medicine Z01.818 [facility] [facility] [id number] [place] [address] 85141- 4241 Jan, Anxiety associated with depression F41.8 and Left anterior shoulder pain M25.512 [facility] [facility] [id number] [place] [address] 35096- 0170 Jan, [facility] [id number] [place] [address] 22863- 8060 Jan, [facility] [facility] [id number] [place] [address] 27923- 0831 Jan, Type 2 diabetes mellitus with unspecified complications E11.8 ; Essential hypertension I10 ; Other chronic pain G89.29 ; GERD ( gastroesophageal reflux disease) K21.9 ; Anxiety associated with depression F41.8 ; Insomnia G47.00 ; Hypertriglyceridemia E78.1 ; Left anterior shoulder pain M25.512 and Tobacco abuse Z72.0 [place] [id number] [place] [address] 33190- 2908 Dec, Anxiety associated with depression F41.8 and Tear of left supraspinatus tendon, subsequent encounter S46.812D [facility] [facility] [id number] [place] [address] 04740- 6500 Nov, [facility] [facility] [id number] [place] [address] 95530- 4812 Nov, Anxiety associated with depression F41.8 and Tear of left supraspinatus tendon, subsequent encounter S46.812D [facility] [facility] [id number] [place] [address] 27530- 9788 Nov, Abnormal lung sounds R09.89 and COPD (chronic obstructive pulmonary disease) with acute bronchitis J44.0 [place] [id number] [place] [address] 61411- 2087 Nov, [facility] [facility] [id number] [place] [address] 26772- 4907 October, COPD (chronic obstructive pulmonary disease) with acute bronchitis J44.0 ; Abnormal lung sounds R09.89 and Medication refill Z76.0 [place] [id number] [place] [address] 40536- 0657 October, Anxiety associated with depression F41.8 [facility] [id number] [place] [address] 01151- 2009 Sep, Nausea and vomiting, unspecified intactability, vomiting of unspecified type R11.2 [facility] [facility] [id number] [place] [address] 36907- 7996 Sep, COPD (chronic obstructive pulmonary disease) J44.9 ; Tobacco abuse Z72.0 ; Tear of left supraspinatus tendon, subsequent encounter S46.812D and Type 2 diabetes mellitus with unspecified complications E11.8 [address] [id number] [place] [address] 13058- 4347 Sep, [facility] [facility] [id number] [place] [address] 73600- 2951 Aug, Left anterior shoulder pain M25.512 [address] [address] 76196- 0940 Aug, Left anterior shoulder pain M25.512 and Low back pain M54.5 [facility] [id number] [place] [address] 06132- 0220 Aug, [facility] [facility] [id number] [place] [address] 86314- 7502 Aug, [place] [id number] [place] [address] 12078- 4253 Aug, [facility] [id number] [place] [address] 24477- 0428 Aug, [facility] [id number] [place] [address] 84434- 0219 Aug, Type 2 diabetes mellitus with unspecified complications E11.8 [facility] [id number] [place] [address] 65572- 1366 Aug, Type 2 diabetes mellitus with unspecified [...] E55.9 and GERD (gastroesophageal reflux disease) K21.9 [place] [id number] [place] [address] 85315- 3049 Aug, [address] [address] 14640- 7255 May, [address] [address] 28000- 8448 Apr, [address] [address] 94850- 8690 Apr, Type 2 diabetes mellitus with unspecified [...] S49.92XA and Anxiety associated with depression F41.8 [place] [id number] [place] [address] 59757- 2346 Apr, [facility] [facility] [id number] [place] [address] 09311- 6923 Apr, [facility] [id number] [place] [address] 40160- 4879 Apr, [place] [address] 41156- 2470 Mar, [facility] [facility] [id number] [place] [address] 20151- 6900 Feb, [address] [address] 38339- 3801 Feb, [address] [address] [address]- 1892 Jan, [facility] [id number] [place] [address] 66107- 5597 Jan, [address] [address] [address]- 0379 Jan, Type 2 diabetes mellitus with unspecified complications E11.8 ; Essential hypertension I10 and Vitamin D deficiency E55.9 [facility] [address] [address]- 3[address] Dec, Type 2 diabetes mellitus with unspecified complications E11.8 ; Essential hypertension I10 ; Other chronic pain G89.29 ; Anxiety associated with depression F41.8 ; Bronchitis J40 ; Vitamin D deficiency E55.9 and COPD (chronic obstructive pulmonary disease) J44.9 [facility] [id number] [place] [address] 82475- 4705 Nov, [facility] [id number] [place] [address] 60706- 4197 October, [facility] [id number] [place] [address] 58186- 1908 October, [facility] [address] [address]- 2530 October, [facility] [facility] [address] [address]- 3750 October, Dysuria R30.0 ; Bronchitis J40 ; Anxiety associated with depression F41.8 and Type 2 diabetes mellitus with unspecified complications E11.8 [place] [address] [address]- 1342 October, Chronic renal insufficiency N18.9 ; Elevated white blood cell count D72.829 and Frequent UTI N39.0 [place] [address] [address]- 4100 October, Chronic renal insufficiency N18.9 ; Elevated white blood cell count D72.829 and Frequent UTI N39.0 [place] [address] 45012- 7339 October, [place] [address] 62259- 9349 Sep, Type 2 diabetes mellitus with unspecified complications E11.8 ; Essential hypertension I10 ; COPD (chronic obstructive pulmonary disease ) J44.9 and Hospital discharge follow-up Z09 [place] [address] 41893- 3690 Sep, [place] [address] 23512- 3355 Sep, Dyspnea R06.00 ; Other chronic pain G89.29 ; Dysuria R30.0 ; Diaphoresis R61 ; Jaundice R17 ; COPD (chronic obstructive pulmonary disease) J44.9 ; Type 2 diabetes mellitus with unspecified complications E11.8 ; Excessive daytime sleepiness G47.19 and Oliguria R34 [place] [address] 50783- 1334 Sep, [address] 14[address]- 1407 Sep, Essential hypertension I10 ; Anxiety associated with depression F41.8 ; Mixed hyperlipidemia E78.2 ; Dyspnea R06.00 ; Shortness of breath R06.02 and Chest pain, unspecified R07.9 [facility] [facility] [id number] [place] [address] 47847- 9691 Sep, Chest pain R07.9 ; Hyperlipemia E78.5 ; Type 2 diabetes mellitus with unspecified complications E11.8 ; Essential hypertension I10 ; Other chronic pain G89.29 ; Anxiety associated with depression F41.8 ; COPD ( chronic obstructive pulmonary disease) J44.9 ; Low vitamin D level E55.9 ; Tobacco abuse Z72.0 ; Hypertriglyceridemia E78.1 and Abnormal laboratory test R89.[address] 40414- 0998 Aug, Pneumonia J18.9 ; Hypertriglyceridemia E78.1 ; COPD ( chronic obstructive pulmonary disease) J44.9 and Hyperlipidemia E78.5 [place] [id number] [place] [address] 86007- 7128 Aug, Shortness of breath R06.02 ; Anxiety associated with depression F41.8 and Chest pain, unspecified R07.9 [address] [id number] [place] [address] 22052- 6112 Jul, [facility] [facility] [id number] [place] [address] 95536- 5015 Jun, Anxiety associated with depression F41.8 ; [...] R11.2 and Tobacco abuse Z72.0 [address] [id number] [place] [address] 25795- 2786 May, Hyperlipemia E78.5 [facility] [facility] [id number] [place] [address] 77235- 2419 May, [place] [id number] [place] [address] 96768- 7110 May, Type 2 diabetes mellitus with unspecified complications E11.8 [facility] [id number] [place] [address] 61356- 7963 May, [place] [id number] [place] [address] 02212- 4028 May, Anxiety associated with depression F41.8 ; Type 2 diabetes mellitus with unspecified complications E11.8 ; Essential hypertension I10 ; Peripheral neuropathy G62.9 ; Low back pain M54.5 ; Other chronic pain G89.29 ; GERD (gastroesophageal reflux disease) K21.9 ; Insomnia G47.00 ; COPD (chronic obstructive pulmonary disease) J44.9 ; URI (upper respiratory infection) J06.9 and Depression F32.9 [address] [place] [address] 11404- 6196 May, Low back pain M54.5 ; Anxiety about health F41.8 ; Generalized anxiety disorder F41.1 and Acute stress reaction F43.0 [address] [address] [id number] [place] [address] 59905- 9961 May, [address] 12468- 7607 Apr, Diabetes E11.9 ; Type 2 diabetes mellitus with unspecified complications E11.8 ; Essential hypertension I10 ; Peripheral neuropathy G62.9 ; Low back pain M54.5 ; Other chronic pain G89.29 ; GERD (gastroesophageal reflux disease) K21.9 ; Anxiety associated with depression F41.8 ; Muscle spasm of calf M62.831 ; Insomnia G47.00 and COPD (chronic obstructive pulmonary disease) J44.9 [address] [address] [id number] [place] [address] 82694- 8126 May, [place] [id number] [place] [address] 80480- 5078 May, IMMUNIZATIONS No Known Immunizations SOCIAL HISTORY Never Assessed REASON FOR VISIT Refill request PLAN OF CARE VITAL SIGNS MEDICATIONS Medication Instructions Dosage Frequency Start Date End Date Duration Status Baclofen 10 mg Orally 2 times a day 1 tablet with food or milk 12h 90 days Active Zofran ODT 8 MG Orally every 8 hrs as directed 8h Aug, 30 days Active RESULTS No Results PROCEDURES [...]
--- OUTSIDE RECORDS SUMMARY | 2018-02-19 17:09 | XMS REPORT ---
Author Author KATIE JEFFRIES Organization [facility] Address [address] [place] [address] Care Team Providers Care Telecommunications Facility Examiner Name Role Phone KATIE JEFFRIES Unavailable PROBLEMS Type Condition ICD9-CM Code [id number] Code Onset Dates Condition Status SNOMED Code Problem COPD (chronic obstructive pulmonary disease) J44.9 Active 15212982 Problem Low back pain M54.5 Active 521362667 Problem GERD (gastroesophageal reflux disease) K21.9 Active 157521427 Problem Chronic renal insufficiency N18.9 Active 578355501 Problem Vitamin D deficiency E55.9 Active 08739347 Problem Type 2 diabetes mellitus with unspecified complications E11.8 Active 17007367 Problem Other chronic pain G89.29 Active 12346403 Problem Mixed hyperlipidemia E78.2 Active 558789608 Problem Controlled substance agreement signed Z79.899 Active 001629969 Problem Anxiety associated with depression F41.8 Active 765374298 Problem Peripheral neuropathy G62.9 Active 87597811 Problem Mild sleep apnea G47.30 Active 48002954 Problem Essential hypertension I10 Active 28577846 Problem Osteoarthritis of acromioclavicular joint M19.019 Active 857889307 Problem Insomnia G47.00 Active 259501912 ALLERGIES No Information ENCOUNTERS Encounter Location Date Diagnosis [facility] [id number] [address] Dec, [facility] [id number] [address] Dec, Type 2 diabetes mellitus with unspecified complications E11.8 [facility] [id number] [address] Dec, [facility] [id number] [address] Dec, [facility] [address] [facility] [id number], [place] [address] Dec, [facility] [address] [facility] [id number] [place] [address] Dec, [facility] [address] [facility] [id number], [place] [address] Dec, [facility] [address] [address] Dec, Other chronic pain G89.29 and Anxiety associated with depression F41.8 [facility] [address] [facility] [id number] [place] [address] Dec, Type 2 diabetes mellitus with unspecified complications E11.8 [facility] [id number] [address] Nov, [facility] [address], [place] [address] Nov, [facility] [id number] [address] Nov, [facility] [address] [address] Nov, [facility] [address], [place] [address] Nov, Type 2 diabetes mellitus with unspecified complications E11.8 [facility] [address], [place] [address] Nov, [facility] [address] [facility] [id number], [place] [address] Nov, Type 2 diabetes mellitus with unspecified complications E11.8 [facility] [id number] [address] Nov, Other chronic pain G89.29 and Anxiety associated with depression F41.8 [facility] [id number] [address] Nov, Chronic renal insufficiency N18.9 [facility] [address], [place] [address] Nov, Other chronic pain G89.29 [facility] [address], [place] [address] Nov, Type 2 diabetes mellitus with unspecified complications E11.8 [facility] [address], [place] [address] October, [facility] [address], [place] [address] October, [facility] [address], [place] [address] October, Type 2 diabetes mellitus with unspecified complications E11.8 [facility] [address], [place] [address] October, [facility] [address], [place] [address] October, [facility] [address], [place] [address] October, Type 2 diabetes mellitus with unspecified complications E11.8 [facility] [address], [place] [address] October, [facility] [id number], [place] [address] October, [facility] [id number], [place] [address] October, Type 2 diabetes mellitus with unspecified complications E11.8 [facility] [id number], [place] [address] October, Type 2 diabetes mellitus with unspecified complications E11.8 ; Essential hypertension I10 ; Chronic renal insufficiency N18.9 ; BMI 40.0-44.9, adult Z68.41 ; Other chronic pain G89.29 ; Anxiety associated with depression F41.8 and Right medial knee pain M25.561 [place] [address] [address] October, GERD (gastroesophageal reflux disease) K21.9 and Anxiety associated with depression F41.8 [address] [id number] [place] [address]- 50[address] October, Anxiety associated with depression F41.8 [address] [address] [address]- [address] Sep, [address] [place] [address] [address] Sep, GERD (gastroesophageal reflux disease) K21.9 and Anxiety associated with depression F41.8 [address] [place] [address] [address] Aug, [address] [place] [address] Aug, [facility] [address] [address] Aug, Acute recurrent maxillary sinusitis J01.01 [address] [place] [address] [address]- [address] Aug, [place] [id number] [place] [address]- 2567 Aug, GERD (gastroesophageal reflux disease) K21.9 and Other chronic pain G89.29 [place] [id number] [place] [address]643- 2784 Aug, [facility] [address] [address] Aug, [facility] [id number] [place] [address]- 6151 Aug, Controlled substance agreement signed Z79.899 ; [...] and Enlarged lymph nodes in armpit R59.0 [place] [place] [address] [address] Aug, Anxiety associated with depression F41.8 and GERD ( gastroesophageal reflux disease) K21.[address] [address] Jul, Controlled substance agreement signed Z79.899 [place] [address] [address] Jun, Anxiety associated with depression F41.8 and GERD ( gastroesophageal reflux disease) K21.9 [place] [address] [address] May, Anxiety associated with depression F41.8 and GERD ( gastroesophageal reflux disease) K21.9 [place] [id number] [place] [address]- 1654 Apr, Mixed hyperlipidemia E78.2 [place] [id number] [place] [address]107- 0176 Apr, Anxiety associated with depression F41.8 and GERD ( gastroesophageal reflux disease) K21.9 [place] [id number] [place] [address]- 3091 Apr, [place] [address] [address]- [address]83 Apr, Type 2 diabetes mellitus with unspecified complications E11.8 [place] [address] [address]- [address] Apr, [place] [address] [place] [address]- 4659 Apr, Type 2 diabetes mellitus with unspecified complications E11.8 [place] [id number] [place] [address]- 9700 Apr, [place] [id number] [place] [address] 96307- 2789 Mar, GERD (gastroesophageal reflux disease) K21.9 and Anxiety associated with depression F41.8 [address] [address] [address] Mar, 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 [place] [address] [address]- [address] Mar, Essential hypertension I10 ; Anxiety associated with depression F41.8 ; COPD (chronic obstructive pulmonary disease) J44.9 ; Mixed hyperlipidemia E78.2 ; Vitamin D deficiency E55.9 ; GERD (gastroesophageal reflux disease) K21.9 ; Type 2 diabetes mellitus with unspecified complications E11.8 ; Other chronic pain G89.29 and Chronic renal insufficiency N18.9 [place] [id number] [place] [address]382- 5396 Mar, Chronic renal insufficiency N18.9 [place] [id number] [place] [address] 8[address]20- 3754 Feb, GERD (gastroesophageal reflux disease) K21.9 and Type 2 diabetes mellitus with unspecified complications E11.8 [place] [id number] [place] [address]75- 6539 Feb, Anxiety associated with depression F41.8 and Tear of left supraspinatus tendon, subsequent encounter S46.812D [address] [address] [address]- [address] Jan, Pre-operative examination for internal medicine Z01.818 [place] [id number] [place] [address] 20514- 9280 Jan, Anxiety associated with depression F41.8 and Left anterior shoulder pain M25.512 [place] [id number] [place] [address] 12988- 7094 Jan, [place] [id number] [place] [address] 44999- 0147 Jan, [place] [id number] [place] [address] 70496- 1558 Jan, Type 2 diabetes mellitus with unspecified complications E11.8 ; Essential hypertension I10 ; Other chronic pain G89.29 ; GERD ( gastroesophageal reflux disease) K21.9 ; Anxiety associated with depression F41.8 ; Insomnia G47.00 ; Hypertriglyceridemia E78.1 ; Left anterior shoulder pain M25.512 and Tobacco abuse Z72.0 [place] [id number] [place] [address] 22153- 4513 Dec, Anxiety associated with depression F41.8 and Tear of left supraspinatus tendon, subsequent encounter S46.812D [place] [id number] [place] [address] 77159- 0395 Nov, [place] [id number] [place] [address] 20214- 3058 Nov, Anxiety associated with depression F41.8 and Tear of left supraspinatus tendon, subsequent encounter S46.812D [place] [id number] [place] [address] 88656- 3388 Nov, Abnormal lung sounds R09.89 and COPD (chronic obstructive pulmonary disease) with acute bronchitis J44.0 [place] [id number] [place] [address] 37045- 4233 Nov, [place] [id number] [place] [address] 94461- 5291 October, COPD (chronic obstructive pulmonary disease) with acute bronchitis J44.0 ; Abnormal lung sounds R09.89 and Medication refill Z76.0 [place] [id number] [place] [address] 08700- 3590 October, Anxiety associated with depression F41.8 [facility] [id number] [place] [address] 65927- 1426 Sep, Nausea and vomiting, unspecified intactability, vomiting of unspecified type R11.2 [place] [id number] [place] [address] 88014- 9983 Sep, COPD (chronic obstructive pulmonary disease) J44.9 ; Tobacco abuse Z72.0 ; Tear of left supraspinatus tendon, subsequent encounter S46.812D and Type 2 diabetes mellitus with unspecified complications E11.8 [address] [id number] [place] [address] 06286- 1429 Sep, [address] [id number] [place] [address] 55536- 4457 Aug, Left anterior shoulder pain M25.512 [address] [place] 49714- 1468 Aug, Left anterior shoulder pain M25.512 and Low back pain M54.5 [address] [id number] [place] [address] 10143- 4568 Aug, [address] [id number] [place] [address] 88809- 6382 Aug, [place] [id number] [place] [address] 44798- 9056 Aug, [address] [id number] [place] [address] 82919- 4137 Aug, [facility] [id number] [place] [address] 98384- 8239 Aug, Type 2 diabetes mellitus with unspecified complications E11.8 [facility] [id number] [place] [address] 79529- 7803 Aug, Type 2 diabetes mellitus with unspecified [...] E55.9 and GERD (gastroesophageal reflux disease) K21.9 [place] [id number] [place] [address] 32165- 0586 Aug, [address] [place] 24[address]- 4070 May, [address] [address] 21341- 8005 Apr, [address] [place] 34772- 7312 Apr, Type 2 diabetes mellitus with unspecified [...] S49.92XA and Anxiety associated with depression F41.8 [place] [id number] [place] [address] 84486- 6724 Apr, [address] [id number] [place] [address] 29319- 3630 Apr, [address] [id number] [place] [address] 38780- 7722 Apr, [address] [address] 94370- 8244 Mar, [place] [id number] [place] [address] 20261- 1108 Feb, [address] 59990- 2289 Feb, [address], [place] [address]- 6197 Jan, [place] [id number] [place] [address] 41998- 1582 Jan, [address] [address], [place] [address]- 0421 Jan, Type 2 diabetes mellitus with unspecified complications E11.8 ; Essential hypertension I10 and Vitamin D deficiency E55.9 [place] [address], [place] [address]- 9781 Dec, Type 2 diabetes mellitus with unspecified complications E11.8 ; Essential hypertension I10 ; Other chronic pain G89.29 ; Anxiety associated with depression F41.8 ; Bronchitis J40 ; Vitamin D deficiency E55.9 and COPD (chronic obstructive pulmonary disease) J44.9 [place] [id number] [place] [address] 84002- 9694 Nov, [place] [address] [place] [address] 59451- 9112 October, [place] [id number] [place] [address] 18871- 1848 October, [address], [place] [address]- 3218 October, [address] [address], [place] [address]- 4530 October, Dysuria R30.0 ; Bronchitis J40 ; Anxiety associated with depression F41.8 and Type 2 diabetes mellitus with unspecified complications E11.8 [place] [address], [place] [address]- 0818 October, Chronic renal insufficiency N18.9 ; Elevated white blood cell count D72.829 and Frequent UTI N39.0 [place] [address], [place] [address]- 2921 October, Chronic renal insufficiency N18.9 ; Elevated white blood cell count D72.829 and Frequent UTI N39.0 [place] [address] 11209- 9874 October, [place] [address] 08568- 4083 Sep, Type 2 diabetes mellitus with unspecified complications E11.8 ; Essential hypertension I10 ; COPD (chronic obstructive pulmonary disease ) J44.9 and Hospital discharge follow-up Z09 [place] [address] 7[address]47- 2070 Sep, [place] [address] 54014- 3198 Sep, Dyspnea R06.00 ; Other chronic pain G89.29 ; Dysuria R30.0 ; Diaphoresis R61 ; Jaundice R17 ; COPD (chronic obstructive pulmonary disease) J44.9 ; Type 2 diabetes mellitus with unspecified complications E11.8 ; Excessive daytime sleepiness G47.19 and Oliguria R34 [place] [address] 60450- 5410 Sep, [address] 0[address]- 8315 Sep, Essential hypertension I10 ; Anxiety associated with depression F41.8 ; Mixed hyperlipidemia E78.2 ; Dyspnea R06.00 ; Shortness of breath R06.02 and Chest pain, unspecified R07.9 [place] [id number] [place] [address] 71572- 4768 Sep, Chest pain R07.9 ; Hyperlipemia E78.5 ; Type 2 diabetes mellitus with unspecified complications E11.8 ; Essential hypertension I10 ; Other chronic pain G89.29 ; Anxiety associated with depression F41.8 ; COPD ( chronic obstructive pulmonary disease) J44.9 ; Low vitamin D level E55.9 ; Tobacco abuse Z72.0 ; Hypertriglyceridemia E78.1 and Abnormal laboratory test R89.[address] 18168- 7417 Aug, Pneumonia J18.9 ; Hypertriglyceridemia E78.1 ; COPD ( chronic obstructive pulmonary disease) J44.9 and Hyperlipidemia E78.5 [place] [id number] [place] [address] 86683- 8152 Aug, Shortness of breath R06.02 ; Anxiety associated with depression F41.8 and Chest pain, unspecified R07.9 [place] [id number] [place] [address] 85682- 2893 Jul, [place] [id number] [place] [address] 08854- 9103 Jun, Anxiety associated with depression F41.8 ; [...] unspecified type R11.2 and Tobacco abuse Z72.0 [place] [id number] [place] [address] 53428- 1088 May, Hyperlipemia E78.5 [place] [id number] [place] [address] 12576- 7831 May, [place] [id number] [place] [address] 93705- 5775 May, Type 2 diabetes mellitus with unspecified complications E11.8 [place] [id number] [place] [address] 85006- 3851 May, [place] [id number] [place] [address] 46189- 4449 May, Anxiety associated with depression F41.8 ; Type 2 diabetes mellitus with unspecified complications E11.8 ; Essential hypertension I10 ; Peripheral neuropathy G62.9 ; Low back pain M54.5 ; Other chronic pain G89.29 ; GERD (gastroesophageal reflux disease) K21.9 ; Insomnia G47.00 ; COPD (chronic obstructive pulmonary disease) J44.9 ; URI (upper respiratory infection) J06.9 and Depression F32.9 [id number] [place] [address] 95185- 9187 08 May, 2015 Low back pain M54.5 ; Anxiety about health F41.8 ; Generalized anxiety disorder F41.1 and Acute stress reaction F43.0 [place] [id number] [place] [address] 95448- 0621 May, [address] 97009- 9496 Apr, Diabetes E11.9 ; Type 2 diabetes mellitus with unspecified complications E11.8 ; Essential hypertension I10 ; Peripheral neuropathy G62.9 ; Low back pain M54.5 ; Other chronic pain G89.29 ; GERD (gastroesophageal reflux disease) K21.9 ; Anxiety associated with depression F41.8 ; Muscle spasm of calf M62.831 ; Insomnia G47.00 and COPD (chronic obstructive pulmonary disease) J44.9 [place] [id number] [place] [address] 09018- 9601 May, [place] [id number] [place] [address] 44454- 7770 May, IMMUNIZATIONS No Known Immunizations SOCIAL HISTORY Never Assessed REASON FOR VISIT Eye appointment PLAN OF CARE VITAL SIGNS MEDICATIONS [...]
--- OUTSIDE RECORDS SUMMARY | 2018-02-19 17:09 | XMS REPORT ---
Author Author KIMBERLY LEY [facility] Address [address] [place] [address] Care Team Providers Care Factory Supervisor Name Role Phone KIMBERLY LEY Unavailable PROBLEMS Type Condition ICD9-CM Code CVI29-DD Code Onset Dates Condition Status SNOMED Code Problem Essential hypertension I10 Active 03498253 Problem Low back pain M54.5 Active 113750046 Problem Type 2 diabetes mellitus with unspecified complications E11.8 Active 72763236 Problem COPD exacerbation J44.1 Active 467155207 Problem Chronic renal insufficiency N18.9 Active 319528820 Problem Mixed hyperlipidemia E78.2 Active 678304928 Problem Other chronic pain G89.29 Active 20489065 Problem Vitamin D deficiency E55.9 Active 51492222 Problem Controlled substance agreement signed Z79.899 Active 971184716 Problem Osteoarthritis of acromioclavicular joint M19.019 Active 291014011 Problem Tear of left infraspinatus tendon, subsequent encounter S46.812D Active 4295045 Problem Mild sleep apnea G47.30 Active 71179003 Problem COPD (chronic obstructive pulmonary disease) J44.9 Active 90283281 Problem GERD (gastroesophageal reflux disease) K21.9 Active 010035540 Problem Tear of left supraspinatus tendon, subsequent encounter S46.812D Active 793011735 Problem Anxiety associated with depression F41.8 Active 453389766 Problem Insomnia G47.00 Active 690642379 Problem Peripheral neuropathy G62.9 Active 56380009 ALLERGIES No Information ENCOUNTERS Encounter Location Date Diagnosis [facility] [id number], [place] [address] Sep, [facility] [address] [address] Aug, [facility] [id number], [place] [address] Aug, [facility] [address], [place] [address] Aug, Acute recurrent maxillary sinusitis J01.01 [facility] [address] [address] Aug, [facility] [id number] [place] [address] Aug, GERD (gastroesophageal reflux disease) K21.9 and Other chronic pain G89.29 [facility] [address] [address] Aug, [facility] [id number] [place] [address] Aug, [facility] [address], [place] [address] Aug, Controlled substance agreement signed Z79.899 ; [...] and Enlarged lymph nodes in armpit R59.0 [facility] [address], [place] [address] Aug, Anxiety associated with depression F41.8 and GERD ( gastroesophageal reflux disease) K21.9 [facility] [id number], [place] [address] Jul, Controlled substance agreement signed Z79.899 [facility] [address], [place] [address] Jun, Anxiety associated with depression F41.8 and GERD ( gastroesophageal reflux disease) K21.9 [facility] [address] [address] May, Anxiety associated with depression F41.8 and GERD ( gastroesophageal reflux disease) K21.9 [facility] [id number] [place] [address] 92807- 9153 Apr, Mixed hyperlipidemia E78.2 [facility] [id number] [place] [address] 83498- 6678 Apr, Anxiety associated with depression F41.8 and GERD ( gastroesophageal reflux disease) K21.9 [facility] [id number] [place] [address]19- 7060 Apr, [facility] [id number] [place] [address] 28487- 6762 Apr, Type 2 diabetes mellitus with unspecified complications E11.8 [facility] [id number] [place] [address] 70167- 3037 Apr, [facility] [id number] [place] [address] 04673- 1238 Apr, Type 2 diabetes mellitus with unspecified complications E11.8 [facility] [id number] [place] [address] 61017- 6574 Apr, [facility] [id number] [place] [address] 68959- 6027 Mar, GERD (gastroesophageal reflux disease) K21.9 and Anxiety associated with depression F41.8 [facility] [id number] [place] [address]91- 2589 Mar, 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 [facility] [id number] [place] [address] 69360- 3535 Mar, Essential hypertension I10 ; Anxiety associated with depression F41.8 ; COPD (chronic obstructive pulmonary disease) J44.9 ; Mixed hyperlipidemia E78.2 ; Vitamin D deficiency E55.9 ; GERD (gastroesophageal reflux disease) K21.9 ; Type 2 diabetes mellitus with unspecified complications E11.8 ; Other chronic pain G89.29 and Chronic renal insufficiency N18.9 [facility] [address] [address] Mar, Chronic renal insufficiency N18.9 [facility] [address] [address] Feb, GERD (gastroesophageal reflux disease) K21.9 and Type 2 diabetes mellitus with unspecified complications E11.8 [facility] [address] [address] Feb, Anxiety associated with depression F41.8 and Tear of left supraspinatus tendon, subsequent encounter S46.812D [facility] [facility] [address] [address] Jan, Pre-operative examination for internal medicine Z01.818 [facility] [address] [address] Jan, Anxiety associated with depression F41.8 and Left anterior shoulder pain M25.512 [facility] [address] [address] Jan, [facility] [address] [address] Jan, [facility] [address] [address] Jan, Type 2 diabetes mellitus with unspecified complications E11.8 ; Essential hypertension I10 ; Other chronic pain G89.29 ; GERD ( gastroesophageal reflux disease) K21.9 ; Anxiety associated with depression F41.8 ; Insomnia G47.00 ; Hypertriglyceridemia E78.1 ; Left anterior shoulder pain M25.512 and Tobacco abuse Z72.0 [facility] [address] [address] Dec, Anxiety associated with depression F41.8 and Tear of left supraspinatus tendon, subsequent encounter S46.812D [facility] [address] [place] [address] Nov, [facility] [id number] [place] [address] 89897[address] Nov, Anxiety associated with depression F41.8 and Tear of left supraspinatus tendon, subsequent encounter S46.812D [facility] [id number] [place] [address] 05006- 9096 Nov, Abnormal lung sounds R09.89 and COPD (chronic obstructive pulmonary disease) with acute bronchitis J44.0 [facility] [id number] [place] [address] 86050- 4008 Nov, [facility] [address] [address] October, COPD (chronic obstructive pulmonary disease) with acute bronchitis J44.0 ; Abnormal lung sounds R09.89 and Medication refill Z76.0 [facility] [id number] [place] [address] 73406- 5[address] October, Anxiety associated with depression F41.8 [facility] [id number] [place] [address] 39443- 3560 Sep, Nausea and vomiting, unspecified intactability, vomiting of unspecified type R11.2 [facility] [id number] [place] [address] 56400- 7907 Sep, COPD (chronic obstructive pulmonary disease) J44.9 ; Tobacco abuse Z72.0 ; Tear of left supraspinatus tendon, subsequent encounter S46.812D and Type 2 diabetes mellitus with unspecified complications E11.8 [facility] [id number] [place] [address] 06975- 4204 Sep, [facility] [id number] [place] [address] 33074- 0445 Aug, Left anterior shoulder pain M25.512 [facility] [id number] [place] [address] 97299- 1335 Aug, Left anterior shoulder pain M25.512 and Low back pain M54.5 [facility] [address], [place] [address] Aug, [facility] [id number] [place] [address] 96906- 4709 Aug, [facility] [id number] [place] [address] 09924- 7800 Aug, [facility] [id number] [place] [address] 04380- 3851 Aug, [facility] [id number] [place] [address] 73258- 8209 Aug, Type 2 diabetes mellitus with unspecified complications E11.8 [facility] [id number] [place] [address] 42937- 7780 Aug, Type 2 diabetes mellitus with unspecified [...] E55.9 and GERD (gastroesophageal reflux disease) K21.9 [facility] [address], [place] [address]- [address] Aug, [facility] [id number] [place] [address] 37823- 3645 May, [facility] [address], [place] [address]- 2679 Apr, [facility] [id number] [place] [address] 38649- 4366 Apr, Type 2 diabetes mellitus with unspecified [...] S49.92XA and Anxiety associated with depression F41.8 [facility] [address], [place] [address]- [address] Apr, [facility] [id number] [place] [address] 49470- 2758 Apr, [facility] [id number] [place] [address] 59930- 8417 Apr, [facility] [id number] [place] [address] 11849- 2574 Mar, [facility] [id number] [place] [address] 16015- 1073 Feb, [facility] [id number] [place] [address] 58578- 5988 Feb, [facility] [id number], [place] [address]- 5674 Jan, [facility] [id number] [place] [address] 10058- 1985 Jan, [facility] [address], [place] [address]- [address] Jan, Type 2 diabetes mellitus with unspecified complications E11.8 ; Essential hypertension I10 and Vitamin D deficiency E55.9 [facility] [address], [place] [address]- 101[address] Dec, Type 2 diabetes mellitus with unspecified complications E11.8 ; Essential hypertension I10 ; Other chronic pain G89.29 ; Anxiety associated with depression F41.8 ; Bronchitis J40 ; Vitamin D deficiency E55.9 and COPD (chronic obstructive pulmonary disease) J44.9 [facility] [address], [place] [address]- [address] Nov, [facility] [address], [place] [address]- 8565 October, [facility] [id number] [place] [address] 10731- 4950 October, [facility] [id number] [place] [address] 46432- 7430 October, [facility] [id number] [place] [address] 21447- 2845 October, Dysuria R30.0 ; Bronchitis J40 ; Anxiety associated with depression F41.8 and Type 2 diabetes mellitus with unspecified complications E11.8 [facility] [id number] [place] [address] 54603- 0105 October, Chronic renal insufficiency N18.9 ; Elevated white blood cell count D72.829 and Frequent UTI N39.0 [facility] [id number] [place] [address] 31798- 5642 October, Chronic renal insufficiency N18.9 ; Elevated white blood cell count D72.829 and Frequent UTI N39.0 [facility] [id number] [place] [address] 28112- 8922 October, [facility] [id number] [place] [address] 93713- 4291 Sep, Type 2 diabetes mellitus with unspecified complications E11.8 ; Essential hypertension I10 ; COPD (chronic obstructive pulmonary disease ) J44.9 and Hospital discharge follow-up Z09 [facility] [place] [id number] [place] [address] 77338- 3538 Sep, [facility] [id number] [place] [address] 39142- 5037 Sep, Dyspnea R06.00 ; Other chronic pain G89.29 ; Dysuria R30.0 ; Diaphoresis R61 ; Jaundice R17 ; COPD (chronic obstructive pulmonary disease) J44.9 ; Type 2 diabetes mellitus with unspecified complications E11.8 ; Excessive daytime sleepiness G47.19 and Oliguria R34 [facility] [place] [address] [place] [address] 85986- 2379 Sep, [facility] [address] [address]- [address] Sep, Essential hypertension I10 ; Anxiety associated with depression F41.8 ; Mixed hyperlipidemia E78.2 ; Dyspnea R06.00 ; Shortness of breath R06.02 and Chest pain, unspecified R07.9 [facility] [id number] [place] [address] 97332- 5355 Sep, Chest pain R07.9 ; Hyperlipemia E78.5 ; Type 2 diabetes mellitus with unspecified complications E11.8 ; Essential hypertension I10 ; Other chronic pain G89.29 ; Anxiety associated with depression F41.8 ; COPD ( chronic obstructive pulmonary disease) J44.9 ; Low vitamin D level E55.9 ; Tobacco abuse Z72.0 ; Hypertriglyceridemia E78.1 and Abnormal laboratory test R89.9 [facility] [id number] [place] [address] 68401- 7069 Aug, Pneumonia J18.9 ; Hypertriglyceridemia E78.1 ; COPD ( chronic obstructive pulmonary disease) J44.9 and Hyperlipidemia E78.5 [facility] [id number] [place] [address] 37287- 2599 Aug, Shortness of breath R06.02 ; Anxiety associated with depression F41.8 and Chest pain, unspecified R07.9 [facility] [address] [place] [address] 74267- 5602 Jul, [facility] [id number] [place] [address] 03959- 9726 Jun, Anxiety associated with depression F41.8 ; [...] unspecified type R11.2 and Tobacco abuse Z72.0 [facility] [id number] [place] [address] 65822- 3030 May, Hyperlipemia E78.5 [address] [id number] [place] [address] 67332- 5749 May, [id number] [place] [address] 28091- 3224 May, Type 2 diabetes mellitus with unspecified complications E11.8 [address] [id number] [place] [address] 79865- 3442 May, [id number] [place] [address] 89043- 3993 May, Anxiety associated with depression F41.8 ; Type 2 diabetes mellitus with unspecified complications E11.8 ; Essential hypertension I10 ; Peripheral neuropathy G62.9 ; Low back pain M54.5 ; Other chronic pain G89.29 ; GERD (gastroesophageal reflux disease) K21.9 ; Insomnia G47.00 ; COPD (chronic obstructive pulmonary disease) J44.9 ; URI (upper respiratory infection) J06.9 and Depression F32.9 [address] [place] [address] 68454- 1247 May, Low back pain M54.5 ; Anxiety about health F41.8 ; Generalized anxiety disorder F41.1 and Acute stress reaction F43.0 [address] [place] [address] 74427- 7547 May, [address] [id number] [place] [address] 95790- 6916 Apr, Diabetes E11.9 ; Type 2 diabetes mellitus with unspecified complications E11.8 ; Essential hypertension I10 ; Peripheral neuropathy G62.9 ; Low back pain M54.5 ; Other chronic pain G89.29 ; GERD (gastroesophageal reflux disease) K21.9 ; Anxiety associated with depression F41.8 ; Muscle spasm of calf M62.831 ; Insomnia G47.00 and COPD (chronic obstructive pulmonary disease) J44.9 [facility] [address] [facility] [id number] [place] [address]- 6[address] May, [facility] [address] [facility] [id number] [place] [address]306 May, IMMUNIZATIONS No Known Immunizations SOCIAL HISTORY Never Assessed REASON FOR VISIT Controlled Refill Requests PLAN OF CARE VITAL SIGNS MEDICATIONS Medication Instructions Dosage Frequency Start Date End Date Duration Status Xanax 0.5 MG Orally Twice a day and 1/2 at HS 1 tablet 28 days Active Hydrocodone-Acetaminophen 5-325 MG Orally every 8 hrs as needed for pain 1 tablet as needed Dec, 28 days Active RESULTS No Results PROCEDURES [...]
--- OUTSIDE RECORDS SUMMARY | 2018-02-19 17:10 | XMS REPORT ---
Author Author KATIE JEFFRIES Organization [facility] Address [address] [place] [address] Care Team Providers Care Gut Snatcher Name Role Phone KATIE JEFFRIES Unavailable PROBLEMS Type Condition ICD9-CM Code GTU13-FH Code Onset Dates Condition Status SNOMED Code Problem COPD (chronic obstructive pulmonary disease) J44.9 Active 07439729 Problem Low back pain M54.5 Active 085035240 Problem GERD (gastroesophageal reflux disease) K21.9 Active 197549863 Problem Chronic renal insufficiency N18.9 Active 820943041 Problem Vitamin D deficiency E55.9 Active 35866137 Problem Type 2 diabetes mellitus with unspecified complications E11.8 Active 36894736 Problem Other chronic pain G89.29 Active 34477445 Problem Mixed hyperlipidemia E78.2 Active 269918921 Problem Controlled substance agreement signed Z79.899 Active 340294316 Problem Anxiety associated with depression F41.8 Active 783908823 Problem Peripheral neuropathy G62.9 Active 88750800 Problem Mild sleep apnea G47.30 Active 11314513 Problem Essential hypertension I10 Active 57909916 Problem Osteoarthritis of acromioclavicular joint M19.019 Active 914701140 Problem Insomnia G47.00 Active 486746259 ALLERGIES No Information ENCOUNTERS Encounter Location Date Diagnosis [facility] [id number] [address] Nov, [facility] [address] [facility] [id number] [address] October, Type 2 diabetes mellitus with unspecified complications E11.8 [facility] [id number] [address] October, Type 2 diabetes mellitus with unspecified complications E11.8 ; Essential hypertension I10 ; Chronic renal insufficiency N18.9 ; BMI 40.0-44.9, adult Z68.41 ; Other chronic pain G89.29 ; Anxiety associated with depression F41.8 and Right medial knee pain M25.561 [place] [address] [address] October, GERD (gastroesophageal reflux disease) K21.9 and Anxiety associated with depression F41.8 [place] [address] [address] October, Anxiety associated with depression F41.8 [place] [address] [address] Sep, [place] [address] [address] Sep, GERD (gastroesophageal reflux disease) K21.9 and Anxiety associated with depression F41.8 [place] [address] [address] Aug, [place] [address] [address] Aug, [facility] [address] [address] Aug, Acute recurrent maxillary sinusitis J01.01 [place] [address] [address] Aug, [place] [address] [address] Aug, GERD (gastroesophageal reflux disease) K21.9 and Other chronic pain G89.29 [place] [address] [address] Aug, [facility] [address] [address] Aug, [facility] [address] [address] Aug, Controlled substance agreement signed Z79.899 ; [...] and Enlarged lymph nodes in armpit R59.[address] [address] Aug, Anxiety associated with depression F41.8 and GERD ( gastroesophageal reflux disease) K21.[address] [address] Jul, Controlled substance agreement signed Z79.[address] [address] Jun, Anxiety associated with depression F41.8 and GERD ( gastroesophageal reflux disease) K21.9 [place] [address] [address] May, Anxiety associated with depression F41.8 and GERD ( gastroesophageal reflux disease) K21.9 [place] [address] [address] Apr, Mixed hyperlipidemia E78.2 [place] [address] [address] Apr, Anxiety associated with depression F41.8 and GERD ( gastroesophageal reflux disease) K21.9 [place] [address] [address] Apr, [address] [address] Apr, Type 2 diabetes mellitus with unspecified complications E11.8 [place] [address] [address] Apr, [place] [address] [place] [address] Apr, Type 2 diabetes mellitus with unspecified complications E11.8 [place] [id number] [place] [address] 58[address] Apr, [place] [id number] [place] [address] 14752[address] 4495 Mar, GERD (gastroesophageal reflux disease) K21.9 and Anxiety associated with depression F41.8 [place] [address] [address] Mar, 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 [address] Mar, Essential hypertension I10 ; Anxiety associated with depression F41.8 ; COPD (chronic obstructive pulmonary disease) J44.9 ; Mixed hyperlipidemia E78.2 ; Vitamin D deficiency E55.9 ; GERD (gastroesophageal reflux disease) K21.9 ; Type 2 diabetes mellitus with unspecified complications E11.8 ; Other chronic pain G89.29 and Chronic renal insufficiency N18.9 [place] [address] [address] Mar, Chronic renal insufficiency N18.9 [place] [id number] [place] [address] 3460 Feb, GERD (gastroesophageal reflux disease) K21.9 and Type 2 diabetes mellitus with unspecified complications E11.8 [place] [id number] [place] [address]3916- 4331 Feb, Anxiety associated with depression F41.8 and Tear of left supraspinatus tendon, subsequent encounter S46.812D [place] [id number] [place] [address]31[address] 2[address] Jan, Pre-operative examination for internal medicine Z01.818 [place] [id number] [place] [address] 80850- 5[address] Jan, Anxiety associated with depression F41.8 and Left anterior shoulder pain M25.512 [place] [id number] [place] [address] 04952- 8159 Jan, [place] [id number] [place] [address] 33259- 1383 Jan, [place] [id number] [place] [address] 6[address]41- 5410 Jan, Type 2 diabetes mellitus with unspecified complications E11.8 ; Essential hypertension I10 ; Other chronic pain G89.29 ; GERD ( gastroesophageal reflux disease) K21.9 ; Anxiety associated with depression F41.8 ; Insomnia G47.00 ; Hypertriglyceridemia E78.1 ; Left anterior shoulder pain M25.512 and Tobacco abuse Z72.0 [place] [id number] [place] [address] 57664[address] 6[address] Dec, Anxiety associated with depression F41.8 and Tear of left supraspinatus tendon, subsequent encounter S46.812D [place] [id number] [place] [address]26 Nov, [address] [address] Nov, Anxiety associated with depression F41.8 and Tear of left supraspinatus tendon, subsequent encounter S46.812D [place] [id number] [place] [address] 77914- 8462 Nov, Abnormal lung sounds R09.89 and COPD (chronic obstructive pulmonary disease) with acute bronchitis J44.0 [place] [id number] [place] [address]67- 4203 Nov, [address] [address] October, COPD (chronic obstructive pulmonary disease) with acute bronchitis J44.0 ; Abnormal lung sounds R09.89 and Medication refill Z76.0 [address] [place] [address] October, Anxiety associated with depression F41.8 [place] [id number] [place] [address] 04167- 03[address] Sep, Nausea and vomiting, unspecified intactability, vomiting of unspecified type R11.2 [place] [id number] [place] [address] 65321- 8431 Sep, COPD (chronic obstructive pulmonary disease) J44.9 ; Tobacco abuse Z72.0 ; Tear of left supraspinatus tendon, subsequent encounter S46.812D and Type 2 diabetes mellitus with unspecified complications E11.8 [place] [address] [address]- [address] Sep, [place] [id number] [place] [address] 26878- 0659 Aug, Left anterior shoulder pain M25.512 [place] [address] [address]- 2533 Aug, Left anterior shoulder pain M25.512 and Low back pain M54.5 [place] [id number] [place] [address] 35503- 7889 Aug, [place] [id number] [place] [address] 36070- 75[address] Aug, [place] [id number] [place] [address] 86469- 8086 Aug, [facility] [id number] [place] [address] 92873- 3186 Aug, [facility] [id number] [place] [address] 28790- 7501 Aug, Type 2 diabetes mellitus with unspecified complications E11.8 [facility] [id number] [place] [address] 92752- 6022 Aug, Type 2 diabetes mellitus with unspecified [...] E55.9 and GERD (gastroesophageal reflux disease) K21.9 [place] [id number] [place] [address] 30976- 5769 Aug, [place] [address] [address]- [address] May, [place] [address] 32[address]- 3[address] Apr, [place] [id number] [place] [address] 52411- 4342 Apr, Type 2 diabetes mellitus with unspecified [...] S49.92XA and Anxiety associated with depression F41.8 [place] [id number] [place] [address] 29493- 8259 Apr, [place] [id number] [place] [address] 69015- 0701 Apr, [place] [id number] [place] [address] 49932- 9405 Apr, [place] [id number] [place] [address] 44685- 3535 Mar, [place] [id number] [place] [address] 21352- 0230 Feb, [place] [address] [address]- [address] Feb, [place] [address] [address] Jan, [place] [id number] [place] [address] 33644- 0348 Jan, [place] [id number] [place] [address] 09969- 7593 Jan, Type 2 diabetes mellitus with unspecified complications E11.8 ; Essential hypertension I10 and Vitamin D deficiency E55.9 [place] [address] [place] [address] 69468- 0674 Dec, Type 2 diabetes mellitus with unspecified complications E11.8 ; Essential hypertension I10 ; Other chronic pain G89.29 ; Anxiety associated with depression F41.8 ; Bronchitis J40 ; Vitamin D deficiency E55.9 and COPD (chronic obstructive pulmonary disease) J44.9 [place] [id number] [place] [address] 91764- 6619 Nov, [place] [id number] [place] [address] 44495- 9427 October, [place] [id number] [place] [address] 23107- 8741 October, [place] [id number] [place] [address] 29106- 8011 October, [place] [id number] [place] [address] 42243- 1732 October, Dysuria R30.0 ; Bronchitis J40 ; Anxiety associated with depression F41.8 and Type 2 diabetes mellitus with unspecified complications E11.8 [place] [id number] [place] [address] 44646- [address] October, Chronic renal insufficiency N18.9 ; Elevated white blood cell count D72.829 and Frequent UTI N39.0 [place] [address] [place] [address] 60622- 1084 October, Chronic renal insufficiency N18.9 ; Elevated white blood cell count D72.829 and Frequent UTI N39.0 [place] [id number] [place] [address] 27210- 2862 October, [place] [id number] [place] [address] 65068- 8999 Sep, Type 2 diabetes mellitus with unspecified complications E11.8 ; Essential hypertension I10 ; COPD (chronic obstructive pulmonary disease ) J44.9 and Hospital discharge follow-up Z09 [place] [id number] [place] [address] 11691- 9477 Sep, [place] [address] 55[address]- 8226 Sep, Dyspnea R06.00 ; Other chronic pain G89.29 ; Dysuria R30.0 ; Diaphoresis R61 ; Jaundice R17 ; COPD (chronic obstructive pulmonary disease) J44.9 ; Type 2 diabetes mellitus with unspecified complications E11.8 ; Excessive daytime sleepiness G47.19 and Oliguria R34 [place] [id number] [place] [address] 90159- 2632 Sep, [id number] [place] [address] 46828- 8097 Sep, Essential hypertension I10 ; Anxiety associated with depression F41.8 ; Mixed hyperlipidemia E78.2 ; Dyspnea R06.00 ; Shortness of breath R06.02 and Chest pain, unspecified R07.9 [place] [id number] [place] [address] 82599- 9590 Sep, Chest pain R07.9 ; Hyperlipemia E78.5 ; Type 2 diabetes mellitus with unspecified complications E11.8 ; Essential hypertension I10 ; Other chronic pain G89.29 ; Anxiety associated with depression F41.8 ; COPD ( chronic obstructive pulmonary disease) J44.9 ; Low vitamin D level E55.9 ; Tobacco abuse Z72.0 ; Hypertriglyceridemia E78.1 and Abnormal laboratory test R89.[address] [place] [address] 47110- 8338 Aug, Pneumonia J18.9 ; Hypertriglyceridemia E78.1 ; COPD ( chronic obstructive pulmonary disease) J44.9 and Hyperlipidemia E78.5 [place] [id number] [place] [address] 30723- 4424 Aug, Shortness of breath R06.02 ; Anxiety associated with depression F41.8 and Chest pain, unspecified R07.9 [id number] [place] [address] 96546- 4506 Jul, [address] 90[address]- 6108 Jun, Anxiety associated with depression F41.8 ; [...] unspecified type R11.2 and Tobacco abuse Z72.0 [address] [place] [address] 33852- 3657 May, Hyperlipemia E78.5 [address] [place] [address] 01550- 9342 May, [id number] [place] [address] 70483- 6962 May, Type 2 diabetes mellitus with unspecified complications E11.8 [address] [place] [place] [address] 84579- 9525 May, [address] [place] [address] 91496- 0087 May, Anxiety associated with depression F41.8 ; Type 2 diabetes mellitus with unspecified complications E11.8 ; Essential hypertension I10 ; Peripheral neuropathy G62.9 ; Low back pain M54.5 ; Other chronic pain G89.29 ; GERD (gastroesophageal reflux disease) K21.9 ; Insomnia G47.00 ; COPD (chronic obstructive pulmonary disease) J44.9 ; URI (upper respiratory infection) J06.9 and Depression F32.9 [place] [id number] [place] [address] 09137- 9701 May, Low back pain M54.5 ; Anxiety about health F41.8 ; Generalized anxiety disorder F41.1 and Acute stress reaction F43.[address] 62[address]- 8481 May, [address] 89749- 1199 Apr, Diabetes E11.9 ; Type 2 diabetes mellitus with unspecified complications E11.8 ; Essential hypertension I10 ; Peripheral neuropathy G62.9 ; Low back pain M54.5 ; Other chronic pain G89.29 ; GERD (gastroesophageal reflux disease) K21.9 ; Anxiety associated with depression F41.8 ; Muscle spasm of calf M62.831 ; Insomnia G47.00 and COPD (chronic obstructive pulmonary disease) J44.[address] 42[address]- 4273 May, [address] 96219- 3755 May, IMMUNIZATIONS No Known Immunizations SOCIAL HISTORY Never Assessed REASON FOR VISIT Controlled refill Requests PLAN OF CARE VITAL SIGNS MEDICATIONS Medication Instructions Dosage Frequency Start Date End Date Duration Status Xanax 0.5 MG Orally Twice a day and 1/2 at HS 1 tablet 28 days Active Hydrocodone-Acetaminophen 5-325 MG Orally twice a day 1 tablet as needed 12h Mar, 28 days Active RESULTS No Results PROCEDURES [...]
--- OUTSIDE RECORDS SUMMARY | 2018-02-19 17:11 | XMS REPORT ---
Author Author KATIE JEFFRIES Organization [facility] Address [address] [place] [address] Care Team Providers Care Visual Merchandising Associate Name Role Phone KATIE JEFFRIES Unavailable PROBLEMS Type Condition ICD9-CM Code GCZ97-TU Code Onset Dates Condition Status SNOMED Code Problem COPD (chronic obstructive pulmonary disease) J44.9 Active 73429250 Problem Low back pain M54.5 Active 758603525 Problem GERD (gastroesophageal reflux disease) K21.9 Active 864574724 Problem Chronic renal insufficiency N18.9 Active 985279722 Problem Vitamin D deficiency E55.9 Active 17253897 Problem Type 2 diabetes mellitus with unspecified complications E11.8 Active 83413992 Problem Other chronic pain G89.29 Active 41177328 Problem Mixed hyperlipidemia E78.2 Active 456536028 Problem Controlled substance agreement signed Z79.899 Active 994754164 Problem Anxiety associated with depression F41.8 Active 982399563 Problem Peripheral neuropathy G62.9 Active 54599911 Problem Mild sleep apnea G47.30 Active 85261438 Problem Essential hypertension I10 Active 94721640 Problem Osteoarthritis of acromioclavicular joint M19.019 Active 658607712 Problem Insomnia G47.00 Active 866989623 ALLERGIES No Information ENCOUNTERS Encounter Location Date Diagnosis [facility] [id number] [address] Nov, [facility] [id number] [address] Nov, Type 2 diabetes mellitus with unspecified complications E11.8 [facility] [id number] [address] Nov, Other chronic pain G89.29 and Anxiety associated with depression F41.8 [facility] [id number] [address] Nov, Chronic renal insufficiency N18.9 [facility] [address], [place] [address] Nov, Other chronic pain G89.29 [facility] [address] [address] Nov, Type 2 diabetes mellitus with unspecified complications E11.8 [facility] [address], [place] [address] October, [facility] [address] [address] October, [facility] [address], [place] [address] October, Type 2 diabetes mellitus with unspecified complications E11.8 [facility] [address] [address] October, [facility] [address] [address] October, [facility] [address] [address] October, Type 2 diabetes mellitus with unspecified complications E11.8 [facility] [address] [address] October, [facility] [address] [address] October, [facility] [id number] [address] October, Type 2 diabetes mellitus with unspecified complications E11.8 [facility] [address], [place] [address] October, Type 2 diabetes mellitus with unspecified complications E11.8 ; Essential hypertension I10 ; Chronic renal insufficiency N18.9 ; BMI 40.0-44.9, adult Z68.41 ; Other chronic pain G89.29 ; Anxiety associated with depression F41.8 and Right medial knee pain M25.561 [place] [address] [address] October, GERD (gastroesophageal reflux disease) K21.9 and Anxiety associated with depression F41.8 [place] [address] [address] October, Anxiety associated with depression F41.8 [place] [address] [address]- [address]8 Sep, [place] [address] [address]- [address] Sep, GERD (gastroesophageal reflux disease) K21.9 and Anxiety associated with depression F41.8 [place] [address] [address]- 8079 Aug, [place] [address] [address] Aug, [facility] [address] [address] Aug, Acute recurrent maxillary sinusitis J01.01 [place] [address] [address]- [address] Aug, [place] [address] [address]- [address] Aug, GERD (gastroesophageal reflux disease) K21.9 and Other chronic pain G89.29 [place] [address] [address]- [address] Aug, [facility] [address] [address] Aug, [facility] [address] [address] Aug, Controlled substance agreement signed Z79.899 ; [...] and Enlarged lymph nodes in armpit R59.0 [place] [address] [address]- [address] Aug, Anxiety associated with depression F41.8 and GERD ( gastroesophageal reflux disease) K21.[address] [address] Jul, Controlled substance agreement signed Z79.899 [place] [id number] [place] [address]- [address]32 Jun, Anxiety associated with depression F41.8 and GERD ( gastroesophageal reflux disease) K21.9 [place] [address] [address]- 66[address] May, Anxiety associated with depression F41.8 and GERD ( gastroesophageal reflux disease) K21.9 [place] [id number] [place] [address]- 3101 Apr, Mixed hyperlipidemia E78.2 [place] [id number] [place] [address] 14999- 3592 Apr, Anxiety associated with depression F41.8 and GERD ( gastroesophageal reflux disease) K21.9 [place] [id number] [place] [address]99- 5280 Apr, [place] [address] [address]- [address] Apr, Type 2 diabetes mellitus with unspecified complications E11.8 [place] [id number] [place] [address] 58381- 0558 Apr, [place] [id number] [place] [address] 92376- 4041 Apr, Type 2 diabetes mellitus with unspecified complications E11.8 [place] [id number] [place] [address]34- 2339 Apr, [address] [id number] [place] [address] 6[address]85- [address]994 Mar, GERD (gastroesophageal reflux disease) K21.9 and Anxiety associated with depression F41.8 [place] [id number] [place] [address] 6[address]01- 9412 Mar, 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 [address]- [address] Mar, Essential hypertension I10 ; Anxiety associated with depression F41.8 ; COPD (chronic obstructive pulmonary disease) J44.9 ; Mixed hyperlipidemia E78.2 ; Vitamin D deficiency E55.9 ; GERD (gastroesophageal reflux disease) K21.9 ; Type 2 diabetes mellitus with unspecified complications E11.8 ; Other chronic pain G89.29 and Chronic renal insufficiency N18.9 [place] [id number] [place] [address]41- 6219 Mar, Chronic renal insufficiency N18.9 [place] [id number] [place] [address] 54737- 2328 Feb, GERD (gastroesophageal reflux disease) K21.9 and Type 2 diabetes mellitus with unspecified complications E11.8 [place] [id number] [place] [address] 25372- 8065 Feb, Anxiety associated with depression F41.8 and Tear of left supraspinatus tendon, subsequent encounter S46.812D [place] [id number] [place] [address]1609- 9265 Jan, Pre-operative examination for internal medicine Z01.818 [place] [id number] [place] [address] 87021- 6589 Jan, Anxiety associated with depression F41.8 and Left anterior shoulder pain M25.512 [place] [id number] [place] [address] 09978- 3255 Jan, [place] [id number] [place] [address] 03921- 1642 Jan, [place] [id number] [place] [address] 87872- 3837 Jan, Type 2 diabetes mellitus with unspecified complications E11.8 ; Essential hypertension I10 ; Other chronic pain G89.29 ; GERD ( gastroesophageal reflux disease) K21.9 ; Anxiety associated with depression F41.8 ; Insomnia G47.00 ; Hypertriglyceridemia E78.1 ; Left anterior shoulder pain M25.512 and Tobacco abuse Z72.0 [place] [id number] [place] [address] 37921- 1253 Dec, Anxiety associated with depression F41.8 and Tear of left supraspinatus tendon, subsequent encounter S46.812D [place] [id number] [place] [address] 29645- 6276 Nov, [place] [id number] [place] [address] 51700- 3358 Nov, Anxiety associated with depression F41.8 and Tear of left supraspinatus tendon, subsequent encounter S46.812D [place] [id number] [place] [address] 65384- 4096 Nov, Abnormal lung sounds R09.89 and COPD (chronic obstructive pulmonary disease) with acute bronchitis J44.0 [place] [id number] [place] [address] 42977- 7064 Nov, [place] [id number] [place] [address] 22623- 5319 October, COPD (chronic obstructive pulmonary disease) with acute bronchitis J44.0 ; Abnormal lung sounds R09.89 and Medication refill Z76.0 [place] [id number] [place] [address] 08413- 0181 October, Anxiety associated with depression F41.8 [place] [id number], [place] [address] Sep, Nausea and vomiting, unspecified intactability, vomiting of unspecified type R11.2 [place] [id number] [place] [address] 26228- 5843 Sep, COPD (chronic obstructive pulmonary disease) J44.9 ; Tobacco abuse Z72.0 ; Tear of left supraspinatus tendon, subsequent encounter S46.812D and Type 2 diabetes mellitus with unspecified complications E11.8 [place] [id number] [place] [address] 47568- 6637 Sep, [place] [id number] [place] [address] 46560- 2896 Aug, Left anterior shoulder pain M25.512 [place] [address] 20369- 2448 Aug, Left anterior shoulder pain M25.512 and Low back pain M54.5 [place] [id number] [place] [address] 72754- 1221 Aug, [place] [id number] [place] [address] 80621- 4919 Aug, [place] [id number] [place] [address] 53853- 5671 Aug, [place] [id number] [place] [address] 79790- 1517 Aug, [place] [id number] [place] [address] 94295- 5642 Aug, Type 2 diabetes mellitus with unspecified complications E11.8 [facility] [id number] [place] [address] 64985- 4764 Aug, Type 2 diabetes mellitus with unspecified [...] E55.9 and GERD (gastroesophageal reflux disease) K21.9 [place] [id number] [place] [address] 69968- 7150 Aug, [place] [address] 98115- 2347 May, [place] [address] 99252- 2024 Apr, [place] [address] 02282- 3000 Apr, Type 2 diabetes mellitus with unspecified [...] S49.92XA and Anxiety associated with depression F41.8 [place] [id number] [place] [address] 92698- 0325 Apr, [place] [id number] [place] [address] 09503- 3135 Apr, [place] [id number] [place] [address] 62916- 6748 Apr, [place] [address] 23023- 3862 Mar, [place] [id number] [place] [address] 19681- 9925 Feb, [place] [address] 91961- 8338 Feb, [place] [address], [place] [address]- 8873 Jan, [place] [id number] [place] [address] 36126- 7073 Jan, [place] [id number] [place] [address] 86873- 3267 Jan, Type 2 diabetes mellitus with unspecified complications E11.8 ; Essential hypertension I10 and Vitamin D deficiency E55.9 [place] [id number] [place] [address] 46548- 9473 Dec, Type 2 diabetes mellitus with unspecified complications E11.8 ; Essential hypertension I10 ; Other chronic pain G89.29 ; Anxiety associated with depression F41.8 ; Bronchitis J40 ; Vitamin D deficiency E55.9 and COPD (chronic obstructive pulmonary disease) J44.9 [place] [id number] [place] [address] 72602- 3516 Nov, [place] [id number] [place] [address] 52252- 2901 October, [place] [id number] [place] [address] 43145- 0479 October, [place] [id number] [place] [address] 89862- 0250 October, [place] [id number] [place] [address] 81955- 8196 October, Dysuria R30.0 ; Bronchitis J40 ; Anxiety associated with depression F41.8 and Type 2 diabetes mellitus with unspecified complications E11.8 [place] [id number] [place] [address] 75782- 4906 October, Chronic renal insufficiency N18.9 ; Elevated white blood cell count D72.829 and Frequent UTI N39.0 [place] [address] [place] [address] 16877- 5504 October, Chronic renal insufficiency N18.9 ; Elevated white blood cell count D72.829 and Frequent UTI N39.0 [place] [id number] [place] [address] 94768- 9345 October, [place] [id number] [place] [address] 58774- 6313 Sep, Type 2 diabetes mellitus with unspecified complications E11.8 ; Essential hypertension I10 ; COPD (chronic obstructive pulmonary disease ) J44.9 and Hospital discharge follow-up Z09 [place] [id number] [place] [address] 11855- 7488 Sep, [place] [address] 49231- 6202 Sep, Dyspnea R06.00 ; Other chronic pain G89.29 ; Dysuria R30.0 ; Diaphoresis R61 ; Jaundice R17 ; COPD (chronic obstructive pulmonary disease) J44.9 ; Type 2 diabetes mellitus with unspecified complications E11.8 ; Excessive daytime sleepiness G47.19 and Oliguria R34 [place] [id number] [place] [address] 41415- 6735 Sep, [place] [id number] [place] [address] 45547- 8425 Sep, Essential hypertension I10 ; Anxiety associated with depression F41.8 ; Mixed hyperlipidemia E78.2 ; Dyspnea R06.00 ; Shortness of breath R06.02 and Chest pain, unspecified R07.9 [place] [id number] [place] [address] 29204- 8988 Sep, Chest pain R07.9 ; Hyperlipemia E78.5 ; Type 2 diabetes mellitus with unspecified complications E11.8 ; Essential hypertension I10 ; Other chronic pain G89.29 ; Anxiety associated with depression F41.8 ; COPD ( chronic obstructive pulmonary disease) J44.9 ; Low vitamin D level E55.9 ; Tobacco abuse Z72.0 ; Hypertriglyceridemia E78.1 and Abnormal laboratory test R89.9 [place] [id number] [place] [address] 56420- 6783 Aug, Pneumonia J18.9 ; Hypertriglyceridemia E78.1 ; COPD ( chronic obstructive pulmonary disease) J44.9 and Hyperlipidemia E78.5 [place] [id number] [place] [address] 46124- 7690 Aug, Shortness of breath R06.02 ; Anxiety associated with depression F41.8 and Chest pain, unspecified R07.9 [place] [id number] [place] [address] 57958- 1659 Jul, [place] [id number] [place] [address] 75081- 0035 Jun, Anxiety associated with depression F41.8 ; [...] unspecified type R11.2 and Tobacco abuse Z72.0 [place] [id number] [place] [address] 43499- 1061 May, Hyperlipemia E78.5 [place] [id number] [place] [address] 73374- 2039 May, [place] [id number] [place] [address] 73556- 5504 May, Type 2 diabetes mellitus with unspecified complications E11.8 [place] [id number] [place] [address] 21382- 4050 May, [place] [id number] [place] [address] 84924- 9563 May, Anxiety associated with depression F41.8 ; Type 2 diabetes mellitus with unspecified complications E11.8 ; Essential hypertension I10 ; Peripheral neuropathy G62.9 ; Low back pain M54.5 ; Other chronic pain G89.29 ; GERD (gastroesophageal reflux disease) K21.9 ; Insomnia G47.00 ; COPD (chronic obstructive pulmonary disease) J44.9 ; URI (upper respiratory infection) J06.9 and Depression F32.9 [address] [place] [address] 38088- 9605 May, Low back pain M54.5 ; Anxiety about health F41.8 ; Generalized anxiety disorder F41.1 and Acute stress reaction F43.0 [place] [id number] [place] [address] 60189- 5409 May, [address] [address]- 0647 Apr, Diabetes E11.9 ; Type 2 diabetes mellitus with unspecified complications E11.8 ; Essential hypertension I10 ; Peripheral neuropathy G62.9 ; Low back pain M54.5 ; Other chronic pain G89.29 ; GERD (gastroesophageal reflux disease) K21.9 ; Anxiety associated with depression F41.8 ; Muscle spasm of calf M62.831 ; Insomnia G47.00 and COPD (chronic obstructive pulmonary disease) J44.9 [place] [id number] [place] [address] 30623- 1476 May, [place] [id number] [place] [address] 31034- 7680 May, IMMUNIZATIONS No Known Immunizations SOCIAL HISTORY Never Assessed REASON FOR VISIT Medication refill request PLAN OF CARE VITAL SIGNS MEDICATIONS Medication Instructions Dosage Frequency Start Date End Date Duration Status Hydrocodone-Acetaminophen 5-325 MG Orally twice a day 1 tablet as needed 12h May, 28 days Active Xanax 0.5 MG Orally Twice a day and 1/2 at HS 1 tablet 28 days Active Zofran 4 MG Orally every 8 hours, PRN 2 tablets May, 30 day(s ) Active RESULTS No Results PROCEDURES No Known [...]
--- OUTSIDE RECORDS SUMMARY | 2018-02-19 17:12 | XMS REPORT ---
Author Author KATIE JEFFRIES Organization [facility] Address [address] [place] [address] Care Team Providers Care Body Liner Name Role Phone MERVIN KATIE Unavailable PROBLEMS Type Condition ICD9-CM Code [id number] Code Onset Dates Condition Status SNOMED Code Problem Essential hypertension I10 Active 14404412 Problem Low back pain M54.5 Active 211255456 Problem Type 2 diabetes mellitus with unspecified complications E11.8 Active 83366931 Problem COPD exacerbation J44.1 Active 883681763 Problem Chronic renal insufficiency N18.9 Active 567822715 Problem Mixed hyperlipidemia E78.2 Active 442413795 Problem Other chronic pain G89.29 Active 52524359 Problem Vitamin D deficiency E55.9 Active 06921775 Problem Controlled substance agreement signed Z79.899 Active 197621159 Problem Osteoarthritis of acromioclavicular joint M19.019 Active 923702254 Problem Tear of left infraspinatus tendon, subsequent encounter S46.812D Active 4354421 Problem Mild sleep apnea G47.30 Active 31469282 Problem COPD (chronic obstructive pulmonary disease) J44.9 Active 85017654 Problem GERD (gastroesophageal reflux disease) K21.9 Active 924681828 Problem Tear of left supraspinatus tendon, subsequent encounter S46.812D Active 966404899 Problem Anxiety associated with depression F41.8 Active 614878809 Problem Insomnia G47.00 Active 580711466 Problem Peripheral neuropathy G62.9 Active 24379843 ALLERGIES Substance Reaction Event Type Date Status Cymbalta suicidal thoughts Drug Allergy Jan, Active Crestor Unknown Drug Allergy Jan, Active ENCOUNTERS Encounter Location Date Diagnosis [facility] [address] [facility] [id number] [address] Sep, [facility] [address] [facility] [id number], [place] [address] Sep, GERD (gastroesophageal reflux disease) K21.9 and Anxiety associated with depression F41.8 [facility] [address] [place] [id number] [place] [address] 82446- 6936 Aug, [facility] [address] [id number] [place] [address] 74091- 7783 Aug, [facility] [address] [address] Aug, Acute recurrent maxillary sinusitis J01.01 [facility] [address] [address] Aug, [facility] [address] 60080[address] 6641 Aug, GERD (gastroesophageal reflux disease) K21.9 and Other chronic pain G89.29 [facility] [address] [address] Aug, [facility] [id number] [place] [address] Aug, [facility] [address] [place] [id number] [place] [address] 40822- 8066 Aug, Controlled substance agreement signed Z79.899 ; [...] and Enlarged lymph nodes in armpit R59.0 [facility] [address] [place] [id number] [place] [address] 13691- 0618 Aug, Anxiety associated with depression F41.8 and GERD ( gastroesophageal reflux disease) K21.9 [facility] [address] [place] [id number] [place] [address] 34386- 9967 Jul, Controlled substance agreement signed Z79.899 [facility] [address] [id number] [place] [address] 28411- 9242 Jun, Anxiety associated with depression F41.8 and GERD ( gastroesophageal reflux disease) K21.9 [facility] [address] [address]- [address]686 May, Anxiety associated with depression F41.8 and GERD ( gastroesophageal reflux disease) K21.9 [facility] [address] [address]- 8924 Apr, Mixed hyperlipidemia E78.2 [facility] [address] 45303- 6847 Apr, Anxiety associated with depression F41.8 and GERD ( gastroesophageal reflux disease) K21.9 [facility] [address] 9[address]88- 9007 Apr, [facility] [address] 00884- 1822 Apr, Type 2 diabetes mellitus with unspecified complications E11.8 [facility] [address] 61655- 6431 Apr, [facility] [address] 67596- 0884 Apr, Type 2 diabetes mellitus with unspecified complications E11.8 [facility] [address] [id number] [place] [address] 32344- 5567 Apr, [facility] [address] 6[address]- 9597 Mar, GERD (gastroesophageal reflux disease) K21.9 and Anxiety associated with depression F41.8 [facility] [address] [place] [id number] [place] [address] 33933- 5704 13 Mar, 2017 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 [facility] [address] [place] [address] Mar, Essential hypertension I10 ; Anxiety associated with depression F41.8 ; COPD (chronic obstructive pulmonary disease) J44.9 ; Mixed hyperlipidemia E78.2 ; Vitamin D deficiency E55.9 ; GERD (gastroesophageal reflux disease) K21.9 ; Type 2 diabetes mellitus with unspecified complications E11.8 ; Other chronic pain G89.29 and Chronic renal insufficiency N18.9 [facility] [address] 5[address]40- 2545 Mar, Chronic renal insufficiency N18.9 [facility] [address] 35877- 6815 Feb, GERD (gastroesophageal reflux disease) K21.9 and Type 2 diabetes mellitus with unspecified complications E11.[address] 27[address]- 3862 Feb, Anxiety associated with depression F41.8 and Tear of left supraspinatus tendon, subsequent encounter S46.812D [facility] [address] [place] [id number] [place] [address] 78732- 1992 Jan, Pre-operative examination for internal medicine Z01.818 [place] [id number] [place] [address] 73930- 2449 Jan, Anxiety associated with depression F41.8 and Left anterior shoulder pain M25.512 [place] [id number] [place] [address] 38261- 5701 Jan, [facility] [id number] [place] [address] 78158- 1870 Jan, [facility] [id number] [place] [address] 07124- 0635 Jan, Type 2 diabetes mellitus with unspecified complications E11.8 ; Essential hypertension I10 ; Other chronic pain G89.29 ; GERD ( gastroesophageal reflux disease) K21.9 ; Anxiety associated with depression F41.8 ; Insomnia G47.00 ; Hypertriglyceridemia E78.1 ; Left anterior shoulder pain M25.512 and Tobacco abuse Z72.0 [facility] [address] [place] [address] 52152- 8356 Dec, Anxiety associated with depression F41.8 and Tear of left supraspinatus tendon, subsequent encounter S46.812D [facility] [address] [place] [id number] [place] [address] 41478- 0562 Nov, [facility] [address] [place] [id number] [place] [address] 05751- 6873 Nov, Anxiety associated with depression F41.8 and Tear of left supraspinatus tendon, subsequent encounter S46.812D [facility] [address] [place] [id number] [place] [address] 97521- 0003 Nov, Abnormal lung sounds R09.89 and COPD (chronic obstructive pulmonary disease) with acute bronchitis J44.0 [facility] [address] [place] [id number] [place] [address] 15927- 6433 Nov, [facility] [address] [place] [id number] [place] [address] 93443- 0313 October, COPD (chronic obstructive pulmonary disease) with acute bronchitis J44.0 ; Abnormal lung sounds R09.89 and Medication refill Z76.0 [facility] [address] [place] [id number] [place] [address] 61727- 3976 October, Anxiety associated with depression F41.8 [facility] [address] [place] [id number] [place] [address] 81850- 5314 Sep, Nausea and vomiting, unspecified intactability, vomiting of unspecified type R11.2 [facility] [address] [place] [id number] [place] [address] 39771- 2086 Sep, COPD (chronic obstructive pulmonary disease) J44.9 ; Tobacco abuse Z72.0 ; Tear of left supraspinatus tendon, subsequent encounter S46.812D and Type 2 diabetes mellitus with unspecified complications E11.8 [facility] [address] [place] [id number] [place] [address] 51856- 6015 Sep, [facility] [address] [address] Aug, Left anterior shoulder pain M25.512 [facility] [address] [place] [id number] [place] [address] 93764780- 0879 Aug, Left anterior shoulder pain M25.512 and Low back pain M54.5 [facility] [address] [place] [id number] [place] [address] 34013- 6523 Aug, [facility] [address] [place] [id number] [place] [address] 16610- 6103 Aug, [facility] [address] [place] [id number] [place] [address] 33639- 7368 Aug, [facility] [address] [place] [id number] [place] [address] 17054- 4967 Aug, [facility] [address] [place] [id number] [place] [address] 09019- 7168 Aug, Type 2 diabetes mellitus with unspecified complications E11.8 [facility] [address] [place] [id number] [place] [address] 44845- 8825 Aug, Type 2 diabetes mellitus with unspecified [...] E55.9 and GERD (gastroesophageal reflux disease) K21.9 [facility] [address] [place] [id number] [place] [address] 71025- 1773 Aug, [facility] [address] [address] [id number] [place] [address] 11182- 1777 May, [facility] [address] [place] [id number] [place] [address] 22067- 8348 Apr, [facility] [address] [id number] [address] Apr, Type 2 diabetes mellitus with unspecified [...] Anxiety associated with depression F41.8 [facility] [address] [place] [address] [id number] [place] [address] 90915- 6002 Apr, [facility] [address] [place] [id number] [place] [address] 78854- 5151 Apr, [facility] [address] [place] [id number] [place] [address] 45268- 8294 Apr, [facility] [address] [place] [id number] [place] [address] 12099- 0202 Mar, [facility] [address] [place] [id number] [place] [address] 56937- 0473 Feb, [facility] [address] [place] [id number] [place] [address] 67317- 1987 Feb, [facility] [address] [place] [id number] [place] [address] 63436- 1829 Jan, [facility] [address] [place] [id number] [place] [address] 54451- 9028 Jan, [facility] [address] [place] [id number] [place] [address] 87277- 0128 Jan, Type 2 diabetes mellitus with unspecified complications E11.8 ; Essential hypertension I10 and Vitamin D deficiency E55.9 [facility] [address] [place] [id number] [address] Dec, Type 2 diabetes mellitus with unspecified complications E11.8 ; Essential hypertension I10 ; Other chronic pain G89.29 ; Anxiety associated with depression F41.8 ; Bronchitis J40 ; Vitamin D deficiency E55.9 and COPD (chronic obstructive pulmonary disease) J44.9 [facility] [address] [address] Nov, [facility] [address] [place] [id number] [place] [address] 37016- 8689 October, [facility] [address] [place] [id number] [place] [address] 42087- 1547 October, [facility] [address] [place] [id number] [place] [address] 20554- 0293 October, [facility] [address] [place] [id number] [place] [address] 71757- 5389 October, Dysuria R30.0 ; Bronchitis J40 ; Anxiety associated with depression F41.8 and Type 2 diabetes mellitus with unspecified complications E11.8 [facility] [address] [place] [id number] [place] [address] 97321- 6209 October, Chronic renal insufficiency N18.9 ; Elevated white blood cell count D72.829 and Frequent UTI N39.0 [facility] [address] [place] [id number] [place] [address] 74308- 2054 October, Chronic renal insufficiency N18.9 ; Elevated white blood cell count D72.829 and Frequent UTI N39.0 [facility] [address], [place] [address]- 6673 October, [facility] [address] [place] [id number] [place] [address] 71636- 6621 Sep, Type 2 diabetes mellitus with unspecified complications E11.8 ; Essential hypertension I10 ; COPD (chronic obstructive pulmonary disease ) J44.9 and Hospital discharge follow-up Z09 [facility] [address] [place] [address] 26921- 3232 Sep, [facility] [address] [place] [id number] [place] [address] 26183- 3056 Sep, Dyspnea R06.00 ; Other chronic pain G89.29 ; Dysuria R30.0 ; Diaphoresis R61 ; Jaundice R17 ; COPD (chronic obstructive pulmonary disease) J44.9 ; Type 2 diabetes mellitus with unspecified complications E11.8 ; Excessive daytime sleepiness G47.19 and Oliguria R34 [facility] [address] [place] [id number] [place] [address] 66139- 7033 Sep, [facility] [address] 31364- 9625 Sep, Essential hypertension I10 ; Anxiety associated with depression F41.8 ; Mixed hyperlipidemia E78.2 ; Dyspnea R06.00 ; Shortness of breath R06.02 and Chest pain, unspecified R07.[address] 77807- 6099 Sep, Chest pain R07.9 ; Hyperlipemia E78.5 ; Type 2 diabetes mellitus with unspecified complications E11.8 ; Essential hypertension I10 ; Other chronic pain G89.29 ; Anxiety associated with depression F41.8 ; COPD ( chronic obstructive pulmonary disease) J44.9 ; Low vitamin D level E55.9 ; Tobacco abuse Z72.0 ; Hypertriglyceridemia E78.1 and Abnormal laboratory test R89.9 [facility] [address] [place] [id number] [place] [address] 39402- 0230 Aug, Pneumonia J18.9 ; Hypertriglyceridemia E78.1 ; COPD ( chronic obstructive pulmonary disease) J44.9 and Hyperlipidemia E78.5 [place] [id number] [place] [address] 65907- 5349 Aug, Shortness of breath R06.02 ; Anxiety associated with depression F41.8 and Chest pain, unspecified R07.9 [facility] [address] [place] [id number] [place] [address] 89446- 4370 Jul, [facility] [address] 26137- 9149 Jun, Anxiety associated with depression F41.8 ; [...] R11.2 and Tobacco abuse Z72.0 [facility] [address] 12623- 6690 May, Hyperlipemia E78.[address] 96730- 9888 May, [address] 73802- 7622 May, Type 2 diabetes mellitus with unspecified complications E11.[address] 79516- 0207 May, [address] 10512- 7498 May, Anxiety associated with depression F41.8 ; Type 2 diabetes mellitus with unspecified complications E11.8 ; Essential hypertension I10 ; Peripheral neuropathy G62.9 ; Low back pain M54.5 ; Other chronic pain G89.29 ; GERD (gastroesophageal reflux disease) K21.9 ; Insomnia G47.00 ; COPD (chronic obstructive pulmonary disease) J44.9 ; URI (upper respiratory infection) J06.9 and Depression F32.9 [place] [id number] [place] [address] 05857- 6933 May, Low back pain M54.5 ; Anxiety about health F41.8 ; Generalized anxiety disorder F41.1 and Acute stress reaction F43.[address] 76193- 9965 May, [address] 68195- 2546 Apr, Diabetes E11.9 ; Type 2 diabetes mellitus with unspecified complications E11.8 ; Essential hypertension I10 ; Peripheral neuropathy G62.9 ; Low back pain M54.5 ; Other chronic pain G89.29 ; GERD (gastroesophageal reflux disease) K21.9 ; Anxiety associated with depression F41.8 ; Muscle spasm of calf M62.831 ; Insomnia G47.00 and COPD (chronic obstructive pulmonary disease) J44.9 [facility] [address] [facility] [id number] [address] May, [facility] [address] [facility] [id number] [address] May, IMMUNIZATIONS No Known Immunizations SOCIAL HISTORY Never Assessed REASON FOR VISIT Asthma--DBennettRN, persistant right shoulder pain, working on clearance from Dr. White, appt 01/24, fatigued, c/o intermittent dizziness PLAN OF CARE Activity Details Follow Up 3 Months, prn Reason:[facility] Height 65 in 2017-01-13 Weight 228 lbs 2017-01-13 Temperature 98.3 degrees Fahrenheit 2017-01-13 Heart Rate 100 bpm 2017-01-13 Respiratory Rate 20 2017-01-13 BMI 37.94 kg/m2 2017-01-13 Blood pressure systolic 100 mmHg 2017-01-13 Blood pressure diastolic 58 mmHg 2017-01-13 MEDICATIONS Medication Instructions Dosage Frequency Start Date End Date Duration Status Albuterol Sulfate HFA 108 (90 Base) MCG/ACT Inhalation every 4 hrs 2 puffs as needed 4h May, 12 months Active Januvia 50 mg Orally Once a day 1 tablet 24h Aug, 30 days Active Paroxetine HCl 20 mg Orally 2 times a day 1 tablet 12h Sep, 90 days Active Baclofen 10 mg Orally 2 times a day 1 tablet with food or milk 12h 30 days Active Metamucil 0.52 GM Orally Three times a day 2 capsules with 8 ounces of liquid 8h Active Advair Diskus 250-50 MCG/DOSE Inhalation Twice a day 1 puff 12h Sep, 12 months Active Fenofibrate 54 MG Orally Once a day 1 tablet with a meal 24h May, 90 days Active Zofran 8 MG Orally every 8 hours, PRN 1 tablet Jun, 05 days Active Xanax 0.5 MG Orally Twice a day and 1/2 at HS 1 tablet 28 days Active QC Ibuprofen 200 MG Orally every 6 hrs 1 tablet as needed 6h May, Active Percocet 5-325 MG Orally every 6 hrs 1 tablet as needed 6h Jan, Active ReliOn Blood Glucose Test - as directed Sep, Active Singulair 10 mg Orally Once a day 1 tablet in the evening 24h 90 days Active ProAir HFA 108 (90 Base) MCG/ACT Inhalation every 4 hrs 2 puffs as needed 4h 20 Nov, 2016 Active Fish Oil 1200 MG Orally Once a day 1 capsule 24h Active Benazepril HCl 5 mg Orally Once a day 1 tablet 24h Sep, 90 days Active Albuterol Sulfate (2.5 MG/3ML) 0.083% Inhalation Three times a day PRN 3 ml 30 days Active Nicorette Starter Kit 2 MG Mouth/Throat 24 time(s) a day 1 piece as needed Jan, 30 days Active Spiriva HandiHaler 18 INHALE THE CONTENTS OF 1 CAPSULE VIA INHALATION DEVICE EVERY DAY 30 Active Metformin HCl 1000 MG Orally Twice a day 1 tablet with meals 12h Apr, 30 days Active Aspirin 325 MG Orally Once a day 1 tablet 24h Active Ranitidine HCl 150 MG Orally Twice a day 1 capsule 12h 90 days Active Metoprolol Tartrate 25 MG Orally twice a day 1 tablet with food 12h 90 days Active RESULTS No Results PROCEDURES Procedure Date Ordered Result Body Site JOINT INJECTION-LARGE JOINT 2017-01-13 N/A DRAIN/INJECT, JOINT/BURSA Jan 13, 2017 INSTRUCTIONS MEDICATIONS ADMINISTERED No Known Medications [...]
--- OUTSIDE RECORDS SUMMARY | 2018-02-19 17:13 | XMS REPORT ---
Author Author MERVIN KATIE Organization [facility] Address [address] [place] [address] Care Team Providers Care Women Nurse Name Role Phone JEFFRIESJONO BerriosELE Unavailable PROBLEMS Type Condition ICD9-CM Code VKG52-PL Code Onset Dates Condition Status SNOMED Code Problem Essential hypertension I10 Active 99900614 Problem Low back pain M54.5 Active 930920810 Problem Type 2 diabetes mellitus with unspecified complications E11.8 Active 24274202 Problem COPD exacerbation J44.1 Active 438317788 Problem Chronic renal insufficiency N18.9 Active 673611958 Problem Mixed hyperlipidemia E78.2 Active 288563315 Problem Other chronic pain G89.29 Active 24913792 Problem Vitamin D deficiency E55.9 Active 63820447 Problem Controlled substance agreement signed Z79.899 Active 887991034 Problem Osteoarthritis of acromioclavicular joint M19.019 Active 378769467 Problem Tear of left infraspinatus tendon, subsequent encounter S46.812D Active 2307224 Problem Mild sleep apnea G47.30 Active 32552230 Problem COPD (chronic obstructive pulmonary disease) J44.9 Active 53424310 Problem GERD (gastroesophageal reflux disease) K21.9 Active 275568914 Problem Tear of left supraspinatus tendon, subsequent encounter S46.812D Active 613176808 Problem Anxiety associated with depression F41.8 Active 393586645 Problem Insomnia G47.00 Active 608688056 Problem Peripheral neuropathy G62.9 Active 72079298 ALLERGIES No Information ENCOUNTERS Encounter Location Date Diagnosis [facility] [id number] [address] Nov, [facility] [address] [facility] [id number] [address] October, BMI 40.0-44.9, adult Z68.41 ; Chronic renal insufficiency N18.9 ; Essential hypertension I10 and Type 2 diabetes mellitus with unspecified complications E11.8 [place] [id number] [place] [address]43- 2876 October, GERD (gastroesophageal reflux disease) K21.9 and Anxiety associated with depression F41.8 [place] [id number] [place] [address] 91817- 5799 October, Anxiety associated with depression F41.8 [place] [address] [address] Sep, [place] [address] [address]- [address] Sep, GERD (gastroesophageal reflux disease) K21.9 and Anxiety associated with depression F41.8 [place] [address] [address]- 2684 Aug, [place] [address] [address] Aug, [facility] [address] [address] Aug, Acute recurrent maxillary sinusitis J01.01 [place] [address] [address]- [address] Aug, [place] [address] 33976- 2227 Aug, GERD (gastroesophageal reflux disease) K21.9 and Other chronic pain G89.29 [place] [id number] [place] [address] 91445- 0468 Aug, [facility] [address] [address] Aug, [facility] [id number] [place] [address] 23186- 5571 Aug, Controlled substance agreement signed Z79.899 ; [...] and Enlarged lymph nodes in armpit R59.0 [place] [address] 65[address]- 2547 Aug, Anxiety associated with depression F41.8 and GERD ( gastroesophageal reflux disease) K21.9 [place] [address] 6[address]81- 9001 Jul, Controlled substance agreement signed Z79.899 [place] [address] 6[address]- 5627 Jun, Anxiety associated with depression F41.8 and GERD ( gastroesophageal reflux disease) K21.9 [place] [address] 07817- 7693 May, Anxiety associated with depression F41.8 and GERD ( gastroesophageal reflux disease) K21.9 [place] [address] 23504- 8945 Apr, Mixed hyperlipidemia E78.2 [place] [id number] [place] [address] 82253- 7803 Apr, Anxiety associated with depression F41.8 and GERD ( gastroesophageal reflux disease) K21.9 [place] [id number] [place] [address] 91446- 8617 Apr, [place] [address] 95167- 2067 Apr, Type 2 diabetes mellitus with unspecified complications E11.8 [place] [address] 21613- 8856 Apr, [place] [address] [place] [address] Apr, Type 2 diabetes mellitus with unspecified complications E11.8 [place] [id number] [place] [address] 82711- 1737 Apr, [place] [id number] [place] [address] 76544- 6542 Mar, GERD (gastroesophageal reflux disease) K21.9 and Anxiety associated with depression F41.8 [place] [address] 63520- 7155 Mar, 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 [address]- 7885 Mar, Essential hypertension I10 ; Anxiety associated with depression F41.8 ; COPD (chronic obstructive pulmonary disease) J44.9 ; Mixed hyperlipidemia E78.2 ; Vitamin D deficiency E55.9 ; GERD (gastroesophageal reflux disease) K21.9 ; Type 2 diabetes mellitus with unspecified complications E11.8 ; Other chronic pain G89.29 and Chronic renal insufficiency N18.9 [place] [address] 82952- 4489 Mar, Chronic renal insufficiency N18.9 [place] [id number] [place] [address] 97105- 2141 Feb, GERD (gastroesophageal reflux disease) K21.9 and Type 2 diabetes mellitus with unspecified complications E11.8 [place] [id number] [place] [address] 22303- 3810 Feb, Anxiety associated with depression F41.8 and Tear of left supraspinatus tendon, subsequent encounter S46.812D [address] 45377- 1439 Jan, Pre-operative examination for internal medicine Z01.818 [place] [id number] [place] [address] 81553- 4675 Jan, Anxiety associated with depression F41.8 and Left anterior shoulder pain M25.512 [place] [id number] [place] [address] 21589- 7915 Jan, [place] [id number] [place] [address] 09115- 9133 Jan, [place] [id number] [place] [address] 39567- 7712 Jan, Type 2 diabetes mellitus with unspecified complications E11.8 ; Essential hypertension I10 ; Other chronic pain G89.29 ; GERD ( gastroesophageal reflux disease) K21.9 ; Anxiety associated with depression F41.8 ; Insomnia G47.00 ; Hypertriglyceridemia E78.1 ; Left anterior shoulder pain M25.512 and Tobacco abuse Z72.0 [place] [id number] [place] [address] 52161- 7124 Dec, Anxiety associated with depression F41.8 and Tear of left supraspinatus tendon, subsequent encounter S46.812D [place] [id number] [place] [address] 14001- 6002 Nov, [place] [id number] [place] [address] 66213- 6591 Nov, Anxiety associated with depression F41.8 and Tear of left supraspinatus tendon, subsequent encounter S46.812D [place] [id number] [place] [address] 13059- 2052 Nov, Abnormal lung sounds R09.89 and COPD (chronic obstructive pulmonary disease) with acute bronchitis J44.0 [place] [id number] [place] [address] 47791- 9551 Nov, [place] [id number] [place] [address] 31881- 8061 October, COPD (chronic obstructive pulmonary disease) with acute bronchitis J44.0 ; Abnormal lung sounds R09.89 and Medication refill Z76.0 [place] [id number] [place] [address] 03450- 7844 October, Anxiety associated with depression F41.8 [facility] [id number] [place] [address] 15599- 1458 Sep, Nausea and vomiting, unspecified intactability, vomiting of unspecified type R11.2 [place] [id number] [place] [address] 50015- 6801 Sep, COPD (chronic obstructive pulmonary disease) J44.9 ; Tobacco abuse Z72.0 ; Tear of left supraspinatus tendon, subsequent encounter S46.812D and Type 2 diabetes mellitus with unspecified complications E11.8 [place] [id number] [place] [address] 80669- 6128 Sep, [place] [id number] [place] [address] 59912- 3186 Aug, Left anterior shoulder pain M25.512 [place] [address] 25717- 9636 Aug, Left anterior shoulder pain M25.512 and Low back pain M54.5 [place] [id number] [place] [address] 00017- 3753 Aug, [place] [id number] [place] [address] 76676- 7346 Aug, [place] [id number] [place] [address] 40233- 3376 Aug, [place] [id number] [place] [address] 09406- 3843 Aug, [place] [id number] [place] [address] 08539- 3422 Aug, Type 2 diabetes mellitus with unspecified complications E11.8 [facility] [id number] [place] [address] 53048- 1238 Aug, Type 2 diabetes mellitus with unspecified [...] E55.9 and GERD (gastroesophageal reflux disease) K21.9 [place] [id number] [place] [address] 56061- 5256 Aug, [place] [address] 39415- 0591 May, [place] [id number] [place] [address] 09385- 7438 Apr, [place] [id number] [place] [address] 01332- 3362 Apr, Type 2 diabetes mellitus with unspecified [...] S49.92XA and Anxiety associated with depression F41.8 [place] [id number] [place] [address] 41741- 0571 08 Apr, 2016 [place] [id number] [place] [address] 33180- 6115 Apr, [place] [id number] [place] [address] 18506- 3080 Apr, [place] [id number] [place] [address] 20514- 8658 Mar, [place] [id number] [place] [address] 70909- 4220 Feb, [place] [id number] [place] [address] 25429- 5665 Feb, [place] [address] [address] Jan, [place] [id number] [place] [address] 03560- 6899 Jan, [place] [address] [address]- 6785 Jan, Type 2 diabetes mellitus with unspecified complications E11.8 ; Essential hypertension I10 and Vitamin D deficiency E55.9 [place] [id number] [address]- 6694 Dec, Type 2 diabetes mellitus with unspecified complications E11.8 ; Essential hypertension I10 ; Other chronic pain G89.29 ; Anxiety associated with depression F41.8 ; Bronchitis J40 ; Vitamin D deficiency E55.9 and COPD (chronic obstructive pulmonary disease) J44.9 [place] [id number] [place] [address] 23792- 0261 Nov, [place] [id number] [place] [address] 35164- 3550 October, [place] [id number] [place] [address] 31761- 7051 October, [place] [address] [address]- 18[address] October, [place] [address] [address]- 6133 October, Dysuria R30.0 ; Bronchitis J40 ; Anxiety associated with depression F41.8 and Type 2 diabetes mellitus with unspecified complications E11.8 [place] [address] [address] October, Chronic renal insufficiency N18.9 ; Elevated white blood cell count D72.829 and Frequent UTI N39.0 [place] [address] [address]- 5389 October, Chronic renal insufficiency N18.9 ; Elevated white blood cell count D72.829 and Frequent UTI N39.0 [id number] [place] [address] 33354- 8349 October, [address] 21489- 4688 Sep, Type 2 diabetes mellitus with unspecified complications E11.8 ; Essential hypertension I10 ; COPD (chronic obstructive pulmonary disease ) J44.9 and Hospital discharge follow-up Z09 [place] [address] 21231- 5433 Sep, [address] 58692- 7434 Sep, Dyspnea R06.00 ; Other chronic pain G89.29 ; Dysuria R30.0 ; Diaphoresis R61 ; Jaundice R17 ; COPD (chronic obstructive pulmonary disease) J44.9 ; Type 2 diabetes mellitus with unspecified complications E11.8 ; Excessive daytime sleepiness G47.19 and Oliguria R34 [address] 82784- 3710 Sep, [address] 42765- 8220 Sep, Essential hypertension I10 ; Anxiety associated with depression F41.8 ; Mixed hyperlipidemia E78.2 ; Dyspnea R06.00 ; Shortness of breath R06.02 and Chest pain, unspecified R07.9 [id number] [place] [address] 56005- 6222 Sep, Chest pain R07.9 ; Hyperlipemia E78.5 ; Type 2 diabetes mellitus with unspecified complications E11.8 ; Essential hypertension I10 ; Other chronic pain G89.29 ; Anxiety associated with depression F41.8 ; COPD ( chronic obstructive pulmonary disease) J44.9 ; Low vitamin D level E55.9 ; Tobacco abuse Z72.0 ; Hypertriglyceridemia E78.1 and Abnormal laboratory test R89.[address] 32812- 2573 Aug, Pneumonia J18.9 ; Hypertriglyceridemia E78.1 ; COPD ( chronic obstructive pulmonary disease) J44.9 and Hyperlipidemia E78.5 [place] [id number] [place] [address] 48135- 2699 Aug, Shortness of breath R06.02 ; Anxiety associated with depression F41.8 and Chest pain, unspecified R07.9 [id number] [place] [address] 81164- 3482 Jul, [place] [id number] [place] [address] 13263- 0143 Jun, Anxiety associated with depression F41.8 ; [...] unspecified type R11.2 and Tobacco abuse Z72.0 [place] [id number] [place] [address] 73208- 7500 May, Hyperlipemia E78.5 [place] [id number] [place] [address] 25082- 3220 May, [id number] [place] [address] 81828- 0774 May, Type 2 diabetes mellitus with unspecified complications E11.8 [place] [id number] [place] [address] 50857- 2159 May, [id number] [place] [address] 38374- 4809 May, Anxiety associated with depression F41.8 ; Type 2 diabetes mellitus with unspecified complications E11.8 ; Essential hypertension I10 ; Peripheral neuropathy G62.9 ; Low back pain M54.5 ; Other chronic pain G89.29 ; GERD (gastroesophageal reflux disease) K21.9 ; Insomnia G47.00 ; COPD (chronic obstructive pulmonary disease) J44.9 ; URI (upper respiratory infection) J06.9 and Depression F32.9 [place] [id number] [place] [address] 54961- 4743 May, Low back pain M54.5 ; Anxiety about health F41.8 ; Generalized anxiety disorder F41.1 and Acute stress reaction F43.0 [place] [id number] [place] [address] 12161- 6781 May, [address] 80259- 2663 Apr, Diabetes E11.9 ; Type 2 diabetes mellitus with unspecified complications E11.8 ; Essential hypertension I10 ; Peripheral neuropathy G62.9 ; Low back pain M54.5 ; Other chronic pain G89.29 ; GERD (gastroesophageal reflux disease) K21.9 ; Anxiety associated with depression F41.8 ; Muscle spasm of calf M62.831 ; Insomnia G47.00 and COPD (chronic obstructive pulmonary disease) J44.9 [id number] [place] [address] 47776- 1286 May, [address] 12295- 8432 May, IMMUNIZATIONS No Known Immunizations SOCIAL HISTORY Never Assessed REASON FOR VISIT PA for gabapentin PLAN OF CARE VITAL SIGNS MEDICATIONS Unknown [...]
--- OUTSIDE RECORDS SUMMARY | 2018-02-19 17:14 | XMS REPORT ---
Author Author KATIE JEFFRIES Organization [facility] Address [address] [place] [address] Care Team Providers Care Towel Folder Name Role Phone KATIE JEFFRIES Unavailable PROBLEMS Type Condition ICD9-CM Code WOL31-[place] Code Onset Dates Condition Status SNOMED Code Problem COPD (chronic obstructive pulmonary disease) J44.9 Active 54576720 Problem Low back pain M54.5 Active 369375384 Problem GERD (gastroesophageal reflux disease) K21.9 Active 275079058 Problem Chronic renal insufficiency N18.9 Active 659710192 Problem Vitamin D deficiency E55.9 Active 77675821 Problem Type 2 diabetes mellitus with unspecified complications E11.8 Active 25598747 Problem Other chronic pain G89.29 Active 63608557 Problem Mixed hyperlipidemia E78.2 Active 151201282 Problem Controlled substance agreement signed Z79.899 Active 697590556 Problem Anxiety associated with depression F41.8 Active 089111604 Problem Peripheral neuropathy G62.9 Active 99737101 Problem Mild sleep apnea G47.30 Active 11964270 Problem Essential hypertension I10 Active 12286704 Problem Osteoarthritis of acromioclavicular joint M19.019 Active 550070320 Problem Insomnia G47.00 Active 027042536 ALLERGIES No Information ENCOUNTERS Encounter Location Date Diagnosis [facility] [address] [facility] [id number] [address] Dec, [facility] [address] [facility] [id number], [place] [address] Nov, [facility] [address] [id number] [address] Nov, [facility] [address] [id number] [address] Nov, Type 2 diabetes mellitus with unspecified complications E11.8 [place] [id number] [facility] [id number] [address] Nov, [facility] [address] [address] Nov, Type 2 diabetes mellitus with unspecified complications E11.8 [facility] [address] [place] [address] 11 Nov, 2017 Other chronic pain G89.29 and Anxiety associated with depression F41.8 [facility] [address] [place] [address] 08 Nov, 2017 Chronic renal insufficiency N18.9 [facility] [id number] [place] [address] 07 Nov, 2017 Other chronic pain G89.29 [facility] [address] [address] Nov, Type 2 diabetes mellitus with unspecified complications E11.8 [facility] [address] [address] October, [facility] [address] [address] October, [facility] [address] [address] October, Type 2 diabetes mellitus with unspecified complications E11.8 [facility] [address] [address] October, [facility] [id number] [address] October, [facility] [address] [address] October, Type 2 diabetes mellitus with unspecified complications E11.8 [facility] [address] [place] [address] October, [facility] [id number] [place] [address]80- 9399 October, [place] [address] [address] October, Type 2 diabetes mellitus with unspecified complications E11.8 [place] [address] [address]- 67[address] October, Type 2 diabetes mellitus with unspecified complications E11.8 ; Essential hypertension I10 ; Chronic renal insufficiency N18.9 ; BMI 40.0-44.9, adult Z68.41 ; Other chronic pain G89.29 ; Anxiety associated with depression F41.8 and Right medial knee pain M25.561 [place] [address] [address]- [address] October, GERD (gastroesophageal reflux disease) K21.9 and Anxiety associated with depression F41.8 [place] [address] [address]- [address] October, Anxiety associated with depression F41.8 [place] [address] [address]- 6[address] Sep, [place] [address] [address]- 455[address] Sep, GERD (gastroesophageal reflux disease) K21.9 and Anxiety associated with depression F41.8 [place] [id number] [place] [address] 67604- 1078 Aug, [place] [address] [address]- 3073 Aug, [facility] [address] [address] Aug, Acute recurrent maxillary sinusitis J01.01 [place] [id number] [place] [address] 78463- 7305 Aug, [place] [address] 30[address]- 1921 Aug, GERD (gastroesophageal reflux disease) K21.9 and Other chronic pain G89.29 [facility] [id number] [place] [address] 73350- 9814 Aug, [facility] [id number] [place] [address]63 -1843 Aug, [facility] [id number] [place] [address] 20842- 4656 Aug, Controlled substance agreement signed Z79.899 ; [...] and Enlarged lymph nodes in armpit R59.0 [facility] [id number] [place] [address] 61712- 5301 Aug, Anxiety associated with depression F41.8 and GERD ( gastroesophageal reflux disease) K21.9 [facility] [id number] [place] [address] 77252- 8735 Jul, Controlled substance agreement signed Z79.899 [facility] [id number] [place] [address] 90641- 1477 Jun, Anxiety associated with depression F41.8 and GERD ( gastroesophageal reflux disease) K21.9 [facility] [id number] [place] [address] 84568- 7039 May, Anxiety associated with depression F41.8 and GERD ( gastroesophageal reflux disease) K21.9 [facility] [address] [place] [address] 28035- 7734 Apr, Mixed hyperlipidemia E78.2 [facility] [id number] [place] [address] 40368- 5934 Apr, Anxiety associated with depression F41.8 and GERD ( gastroesophageal reflux disease) K21.9 [place] [id number] [place] [address] 33684- 4835 Apr, [place] [id number] [place] [address] 65721- 2294 Apr, Type 2 diabetes mellitus with unspecified complications E11.8 [place] [address] 35846- 9938 Apr, [place] [id number] [place] [address] 48531- 2607 Apr, Type 2 diabetes mellitus with unspecified complications E11.8 [place] [id number] [place] [address] 28900- 1036 Apr, [place] [id number] [place] [address] 58445- 9124 Mar, GERD (gastroesophageal reflux disease) K21.9 and Anxiety associated with depression F41.8 [place] [id number] [place] [address] 02071- 4442 Mar, 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 [place] [id number] [place] [address] 59217- 5979 Mar, Essential hypertension I10 ; Anxiety associated with depression F41.8 ; COPD (chronic obstructive pulmonary disease) J44.9 ; Mixed hyperlipidemia E78.2 ; Vitamin D deficiency E55.9 ; GERD (gastroesophageal reflux disease) K21.9 ; Type 2 diabetes mellitus with unspecified complications E11.8 ; Other chronic pain G89.29 and Chronic renal insufficiency N18.9 [place] [id number] [place] [address] 48056- 8981 Mar, Chronic renal insufficiency N18.9 [place] [id number] [place] [address] 86458- 0796 Feb, GERD (gastroesophageal reflux disease) K21.9 and Type 2 diabetes mellitus with unspecified complications E11.8 [place] [id number] [place] [address] 59999- 1733 Feb, Anxiety associated with depression F41.8 and Tear of left supraspinatus tendon, subsequent encounter S46.812D [place] [id number] [place] [address] 68047- 9001 Jan, Pre-operative examination for internal medicine Z01.818 [place] [id number] [place] [address] 55206- 5670 Jan, Anxiety associated with depression F41.8 and Left anterior shoulder pain M25.512 [place] [address] 85052- 9183 Jan, [place] [id number] [place] [address] 52019- 5814 Jan, [place] [id number] [place] [address] 33837- 7400 Jan, Type 2 diabetes mellitus with unspecified complications E11.8 ; Essential hypertension I10 ; Other chronic pain G89.29 ; GERD ( gastroesophageal reflux disease) K21.9 ; Anxiety associated with depression F41.8 ; Insomnia G47.00 ; Hypertriglyceridemia E78.1 ; Left anterior shoulder pain M25.512 and Tobacco abuse Z72.0 [place] [id number] [place] [address] 14386- 8494 Dec, Anxiety associated with depression F41.8 and Tear of left supraspinatus tendon, subsequent encounter S46.812D [place] [id number] [place] [address] 91145- 0795 Nov, [place] [id number] [place] [address] 44457- 5809 Nov, Anxiety associated with depression F41.8 and Tear of left supraspinatus tendon, subsequent encounter S46.812D [place] [id number] [place] [address] 90867- 4029 Nov, Abnormal lung sounds R09.89 and COPD (chronic obstructive pulmonary disease) with acute bronchitis J44.0 [place] [id number] [place] [address] 14225- 0026 Nov, [place] [id number] [place] [address] 49357- 8978 October, COPD (chronic obstructive pulmonary disease) with acute bronchitis J44.0 ; Abnormal lung sounds R09.89 and Medication refill Z76.0 [place] [address] 53836- 5178 October, Anxiety associated with depression F41.8 [place] [address] 44414- 0230 Sep, Nausea and vomiting, unspecified intactability, vomiting of unspecified type R11.[address] 25[address]- 2289 Sep, COPD (chronic obstructive pulmonary disease) J44.9 ; Tobacco abuse Z72.0 ; Tear of left supraspinatus tendon, subsequent encounter S46.812D and Type 2 diabetes mellitus with unspecified complications E11.8 [place] [id number] [place] [address] 29401- 9484 Sep, [place] [id number] [place] [address] 84909- 5247 Aug, Left anterior shoulder pain M25.512 [place] [id number] [place] [address] 02866- 9447 Aug, Left anterior shoulder pain M25.512 and Low back pain M54.5 [place] [address] 50345- 8986 Aug, [place] [address] 07644- 2534 Aug, [place] [address] 96679- 5633 Aug, [place] [id number] [place] [address] 84683- 6449 Aug, [place] [id number] [place] [address] 87533- 3719 Aug, Type 2 diabetes mellitus with unspecified complications E11.8 [place] [id number] [place] [address] 15590- 5354 Aug, Type 2 diabetes mellitus with unspecified [...] E55.9 and GERD (gastroesophageal reflux disease) K21.9 [place] [id number] [place] [address] 12808- 8672 Aug, [place] [id number] [place] [address] 85212- 9822 May, [place] [id number] [place] [address] 47923- 8389 Apr, [place] [id number] [place] [address] 66058- 7246 Apr, Type 2 diabetes mellitus with unspecified [...] S49.92XA and Anxiety associated with depression F41.8 [place] [id number] [place] [address] 48620- 0937 Apr, [place] [id number] [place] [address] [place] [address]- 7558 Apr, [facility] [address] [address]- 0619 Apr, [facility] [address] [address] [address] Mar, [facility] [address] [address]- 7657 Feb, [facility] [id number] [place] [address] 17746- 2728 Feb, [facility] [id number] [place] [address] 31386- 0968 Jan, [facility] [address], [place] [address]- 2341 Jan, [facility] [address] [place] [address] 11360- 9116 Jan, Type 2 diabetes mellitus with unspecified complications E11.8 ; Essential hypertension I10 and Vitamin D deficiency E55.9 [facility] [address], [place] [address]- 3588 Dec, Type 2 diabetes mellitus with unspecified complications E11.8 ; Essential hypertension I10 ; Other chronic pain G89.29 ; Anxiety associated with depression F41.8 ; Bronchitis J40 ; Vitamin D deficiency E55.9 and COPD (chronic obstructive pulmonary disease) J44.9 [facility] [address], [place] [address]- 2518 Nov, [facility] [address], [place] [address]- 1752 October, [facility] [address] [address]- 5347 October, [facility] [address] 9223 October, [facility] [address] [place] [address] 13187- 0366 October, Dysuria R30.0 ; Bronchitis J40 ; Anxiety associated with depression F41.8 and Type 2 diabetes mellitus with unspecified complications E11.8 [place] [id number] [place] [address] 49408- 8887 October, Chronic renal insufficiency N18.9 ; Elevated white blood cell count D72.829 and Frequent UTI N39.0 [place] [address] 11610- 3117 October, Chronic renal insufficiency N18.9 ; Elevated white blood cell count D72.829 and Frequent UTI N39.0 [place] [id number] [place] [address] 43646- 9662 October, [place] [id number] [place] [address] 73623- 0043 Sep, Type 2 diabetes mellitus with unspecified complications E11.8 ; Essential hypertension I10 ; COPD (chronic obstructive pulmonary disease ) J44.9 and Hospital discharge follow-up Z09 [place] [id number] [place] [address] 09819- 1314 Sep, [place] [id number] [place] [address] 50916- 9244 Sep, Dyspnea R06.00 ; Other chronic pain G89.29 ; Dysuria R30.0 ; Diaphoresis R61 ; Jaundice R17 ; COPD (chronic obstructive pulmonary disease) J44.9 ; Type 2 diabetes mellitus with unspecified complications E11.8 ; Excessive daytime sleepiness G47.19 and Oliguria R34 [place] [address] [place] [address] 23248- 1927 Sep, [place] [id number] [place] [address] 83984- 4180 Sep, Essential hypertension I10 ; Anxiety associated with depression F41.8 ; Mixed hyperlipidemia E78.2 ; Dyspnea R06.00 ; Shortness of breath R06.02 and Chest pain, unspecified R07.9 [place] [id number] [place] [address] 18992- 6185 Sep, Chest pain R07.9 ; Hyperlipemia E78.5 ; Type 2 diabetes mellitus with unspecified complications E11.8 ; Essential hypertension I10 ; Other chronic pain G89.29 ; Anxiety associated with depression F41.8 ; COPD ( chronic obstructive pulmonary disease) J44.9 ; Low vitamin D level E55.9 ; Tobacco abuse Z72.0 ; Hypertriglyceridemia E78.1 and Abnormal laboratory test R89.[address] 09831- 0897 Aug, Pneumonia J18.9 ; Hypertriglyceridemia E78.1 ; COPD ( chronic obstructive pulmonary disease) J44.9 and Hyperlipidemia E78.[address] 41563- 8321 Aug, Shortness of breath R06.02 ; Anxiety associated with depression F41.8 and Chest pain, unspecified R07.9 [place] [id number] [place] [address] 02960- 9014 Jul, [address] 33288- 4907 Jun, Anxiety associated with depression F41.8 ; [...] unspecified type R11.2 and Tobacco abuse Z72.[address] 92072- 2972 May, Hyperlipemia E78.[address] 55222- 9756 May, [id number] [place] [address] 25689- 4891 May, Type 2 diabetes mellitus with unspecified complications E11.8 [place] [id number] [place] [address] 31156- 3304 May, [place] [id number] [place] [address] 11004- 4411 May, Anxiety associated with depression F41.8 ; Type 2 diabetes mellitus with unspecified complications E11.8 ; Essential hypertension I10 ; Peripheral neuropathy G62.9 ; Low back pain M54.5 ; Other chronic pain G89.29 ; GERD (gastroesophageal reflux disease) K21.9 ; Insomnia G47.00 ; COPD (chronic obstructive pulmonary disease) J44.9 ; URI (upper respiratory infection) J06.9 and Depression F32.9 [place] [id number] [place] [address] 73934- 5693 May, Low back pain M54.5 ; Anxiety about health F41.8 ; Generalized anxiety disorder F41.1 and Acute stress reaction F43.0 [place] [id number] [place] [address] 26886- 7999 May, [place] [id number] [place] [address] 26636- 7288 Apr, Diabetes E11.9 ; Type 2 diabetes mellitus with unspecified complications E11.8 ; Essential hypertension I10 ; Peripheral neuropathy G62.9 ; Low back pain M54.5 ; Other chronic pain G89.29 ; GERD (gastroesophageal reflux disease) K21.9 ; Anxiety associated with depression F41.8 ; Muscle spasm of calf M62.831 ; Insomnia G47.00 and COPD (chronic obstructive pulmonary disease) J44.9 [place] [id number] [place] [address] 28367- 4053 May, [place] [id number] [place] [address] 26747- 0440 May, IMMUNIZATIONS No Known Immunizations SOCIAL HISTORY Never Assessed REASON FOR VISIT Controlled Med Refill PLAN OF CARE VITAL SIGNS MEDICATIONS Medication Instructions Dosage Frequency Start Date End Date Duration Status Hydrocodone-Acetaminophen 5-325 MG Orally twice a day 1 tablet as needed 12h 29 Jun, 2017 28 days Active Xanax 0.5 MG Orally [...]
--- OUTSIDE RECORDS SUMMARY | 2018-02-19 17:14 | XMS REPORT ---
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2 Active 967388390 Problem Controlled substance agreement signed Z79.899 Active 341069538 Problem Anxiety associated with depression F41.8 Active 116963631 Problem Peripheral neuropathy G62.9 Active 70414232 Problem Mild sleep apnea G47.30 Active 14171435 Problem Essential hypertension I10 Active 79959694 Problem Osteoarthritis of acromioclavicular joint M19.019 Active 782446282 Problem Insomnia G47.00 Active 722295597 ALLERGIES No Information ENCOUNTERS Encounter Location Date Diagnosis [facility] [address] [facility] [id number] [address] Nov, [facility] [address] [facility] [id number], [place] [address] October, [facility] [id number], [place] [address] October, [facility] [id number], [place] [address] October, Type 2 diabetes mellitus with unspecified complications E11.8 [place] [id number], [place] [address] October, [facility] [address], [place] [address] October, [facility] [address], [place] [address] October, Type 2 diabetes mellitus with unspecified complications E11.8 [facility] [id number] [place] [address]753- 2497 October, [facility] [id number] [place] [address] 84913- 2105 October, [facility] [id number] [place] [address] 01172- 1178 October, Type 2 diabetes mellitus with unspecified complications E11.8 [facility] [address] [place] [address] 25829- 1296 October, Type 2 diabetes mellitus with unspecified complications E11.8 ; Essential hypertension I10 ; Chronic renal insufficiency N18.9 ; BMI 40.0-44.9, adult Z68.41 ; Other chronic pain G89.29 ; Anxiety associated with depression F41.8 and Right medial knee pain M25.561 [place] [address], [place] [address] October, GERD (gastroesophageal reflux disease) K21.9 and Anxiety associated with depression F41.8 [facility] [address], [place] [address] October, Anxiety associated with depression F41.8 [facility] [address], [place] [address] Sep, [facility] [address] [place] [address] 06462- 2432 Sep, GERD (gastroesophageal reflux disease) K21.9 and Anxiety associated with depression F41.8 [facility] [id number] [place] [address] 26501- 6907 Aug, [facility] [address], [place] [address] Aug, [facility] [address] [place] [address]239 -1411 Aug, Acute recurrent maxillary sinusitis J01.01 [place] [id number] [place] [address] 99683- 4846 Aug, [place] [id number] [place] [address] 92734- 7984 Aug, GERD (gastroesophageal reflux disease) K21.9 and Other chronic pain G89.29 [place] [id number] [place] [address] 50613- 9128 Aug, [facility] [id number] [place] [address] 78849 -9172 Aug, [place] [id number] [place] [address] 84857- 2495 Aug, Controlled substance agreement signed Z79.899 ; [...] and Enlarged lymph nodes in armpit R59.0 [place] [address] [place] [address] 54969- 2348 Aug, Anxiety associated with depression F41.8 and GERD ( gastroesophageal reflux disease) K21.9 [place] [address] [place] [address] 25047- 6811 Jul, Controlled substance agreement signed Z79.899 [place] [id number] [place] [address] 20164- 3197 Jun, Anxiety associated with depression F41.8 and GERD ( gastroesophageal reflux disease) K21.9 [place] [id number] [place] [address] 84813- 4553 May, Anxiety associated with depression F41.8 and GERD ( gastroesophageal reflux disease) K21.9 [place] [id number] [place] [address] 27203- 0915 Apr, Mixed hyperlipidemia E78.2 [place] [id number] [place] [address] 93650- 0713 Apr, Anxiety associated with depression F41.8 and GERD ( gastroesophageal reflux disease) K21.9 [place] [id number] [place] [address] 36806- 9027 Apr, [place] [id number] [place] [address] 61358- 4552 Apr, Type 2 diabetes mellitus with unspecified complications E11.8 [place] [id number] [place] [address] 58850- 5339 Apr, [place] [id number] [place] [address] 01384- 7959 Apr, Type 2 diabetes mellitus with unspecified complications E11.8 [place] [id number] [place] [address] 31948- 8925 Apr, [place] [id number] [place] [address] 89729- 9242 Mar, GERD (gastroesophageal reflux disease) K21.9 and Anxiety associated with depression F41.8 [place] [id number] [place] [address] 26293- 9263 Mar, 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 [place] [id number] [place] [address] 90422- 0444 Mar, Essential hypertension I10 ; Anxiety associated with depression F41.8 ; COPD (chronic obstructive pulmonary disease) J44.9 ; Mixed hyperlipidemia E78.2 ; Vitamin D deficiency E55.9 ; GERD (gastroesophageal reflux disease) K21.9 ; Type 2 diabetes mellitus with unspecified complications E11.8 ; Other chronic pain G89.29 and Chronic renal insufficiency N18.9 [place] [id number] [place] [address] 44510- 6891 Mar, Chronic renal insufficiency N18.9 [place] [address] [address]- 2999 Feb, GERD (gastroesophageal reflux disease) K21.9 and Type 2 diabetes mellitus with unspecified complications E11.[address] [address]- [address] Feb, Anxiety associated with depression F41.8 and Tear of left supraspinatus tendon, subsequent encounter S46.812D [place] [address] 0[address]61- 3999 Jan, Pre-operative examination for internal medicine Z01.818 [place] [address] 85697- 2696 Jan, Anxiety associated with depression F41.8 and Left anterior shoulder pain M25.512 [place] [id number] [place] [address] 71703- 3482 Jan, [place] [id number] [place] [address] 31834- 6645 Jan, [place] [address] [address]- 1541 Jan, Type 2 diabetes mellitus with unspecified complications E11.8 ; Essential hypertension I10 ; Other chronic pain G89.29 ; GERD ( gastroesophageal reflux disease) K21.9 ; Anxiety associated with depression F41.8 ; Insomnia G47.00 ; Hypertriglyceridemia E78.1 ; Left anterior shoulder pain M25.512 and Tobacco abuse Z72.0 [place] [address] 61341- 6215 Dec, Anxiety associated with depression F41.8 and Tear of left supraspinatus tendon, subsequent encounter S46.812D [place] [id number] [place] [address] 02484- 4824 Nov, [place] [id number] [place] [address] 53921- 5532 Nov, Anxiety associated with depression F41.8 and Tear of left supraspinatus tendon, subsequent encounter S46.812D [place] [id number] [place] [address] 53277- 9472 Nov, Abnormal lung sounds R09.89 and COPD (chronic obstructive pulmonary disease) with acute bronchitis J44.0 [place] [id number] [place] [address] 68615- 3524 Nov, [place] [address] 82097- 7961 October, COPD (chronic obstructive pulmonary disease) with acute bronchitis J44.0 ; Abnormal lung sounds R09.89 and Medication refill Z76.0 [place] [id number] [place] [address] 03993- 4579 October, Anxiety associated with depression F41.8 [place] [id number] [place] [address] 89140- 0511 Sep, Nausea and vomiting, unspecified intactability, vomiting of unspecified type R11.2 [place] [id number] [place] [address] 04589- 0134 Sep, COPD (chronic obstructive pulmonary disease) J44.9 ; Tobacco abuse Z72.0 ; Tear of left supraspinatus tendon, subsequent encounter S46.812D and Type 2 diabetes mellitus with unspecified complications E11.8 [place] [id number] [place] [address] 62895- 7527 Sep, [place] [id number] [place] [address] 00096- 7026 Aug, Left anterior shoulder pain M25.512 [facility] [address], [place] [address]- 5051 Aug, Left anterior shoulder pain M25.512 and Low back pain M54.5 [facility] [address], [place] [address]- 5539 Aug, [facility] [address] [place] [address] 95313- 0367 Aug, [facility] [address], [place] [address]- 0426 Aug, [facility] [id number] [place] [address] 46260- 1386 Aug, [facility] [id number] [place] [address] 50760- 3422 Aug, Type 2 diabetes mellitus with unspecified complications E11.8 [facility] [address], [place] [address]- 4383 Aug, Type 2 diabetes mellitus with unspecified [...] E55.9 and GERD (gastroesophageal reflux disease) K21.9 [facility] [address], [place] [address]- 5279 Aug, [facility] [address], [place] [address]- 8921 May, [facility] [id number], [place] [address]- 1405 Apr, [facility] [address], [place] [address]- 2276 Apr, Type 2 diabetes mellitus with unspecified [...] S49.92XA and Anxiety associated with depression F41.8 [facility] [address] 92488- 5213 Apr, [facility] [id number] [place] [address] 14501- 5126 Apr, [facility] [id number] [place] [address] 91417- 9321 Apr, [facility] [id number] [place] [address] 97628- 6520 Mar, [facility] [id number] [place] [address] 60822- 5491 Feb, [facility] [id number] [place] [address] 46081- 8367 Feb, [facility] [id number] [place] [address] 80776- 3725 Jan, [facility] [id number] [place] [address] 49163- 1027 Jan, [facility] [id number] [place] [address] 94322- 6763 Jan, Type 2 diabetes mellitus with unspecified complications E11.8 ; Essential hypertension I10 and Vitamin D deficiency E55.9 [facility] [id number] [place] [address] 26992605- 6086 Dec, Type 2 diabetes mellitus with unspecified complications E11.8 ; Essential hypertension I10 ; Other chronic pain G89.29 ; Anxiety associated with depression F41.8 ; Bronchitis J40 ; Vitamin D deficiency E55.9 and COPD (chronic obstructive pulmonary disease) J44.9 [place] [address], [place] [address]- 6105 Nov, [place] [id number], [place] [address]- 7289 October, [place] [address], [place] [address]- 6339 October, [place] [id number] [place] [address] 87915- 7189 October, [place] [address] [place] [address] 84295- 5439 October, Dysuria R30.0 ; Bronchitis J40 ; Anxiety associated with depression F41.8 and Type 2 diabetes mellitus with unspecified complications E11.8 [place] [address], [place] [address]- 1754 October, Chronic renal insufficiency N18.9 ; Elevated white blood cell count D72.829 and Frequent UTI N39.0 [place] [address] [place] [address] 42062- 6600 October, Chronic renal insufficiency N18.9 ; Elevated white blood cell count D72.829 and Frequent UTI N39.0 [place] [address], [place] [address]- 2183 October, [place] [address], [place] [address]- 6593 Sep, Type 2 diabetes mellitus with unspecified complications E11.8 ; Essential hypertension I10 ; COPD (chronic obstructive pulmonary disease ) J44.9 and Hospital discharge follow-up Z09 [place] [address] [place] [address] 38930- 0722 Sep, [place] [address], [place] [address]- 5646 Sep, Dyspnea R06.00 ; Other chronic pain G89.29 ; Dysuria R30.0 ; Diaphoresis R61 ; Jaundice R17 ; COPD (chronic obstructive pulmonary disease) J44.9 ; Type 2 diabetes mellitus with unspecified complications E11.8 ; Excessive daytime sleepiness G47.19 and Oliguria R34 [place] [id number] [place] [address] 30904- 4026 Sep, [place] [id number] [place] [address] 03953- 7490 Sep, Essential hypertension I10 ; Anxiety associated with depression F41.8 ; Mixed hyperlipidemia E78.2 ; Dyspnea R06.00 ; Shortness of breath R06.02 and Chest pain, unspecified R07.[address] 9[address]69- 9545 Sep, Chest pain R07.9 ; Hyperlipemia E78.5 ; Type 2 diabetes mellitus with unspecified complications E11.8 ; Essential hypertension I10 ; Other chronic pain G89.29 ; Anxiety associated with depression F41.8 ; COPD ( chronic obstructive pulmonary disease) J44.9 ; Low vitamin D level E55.9 ; Tobacco abuse Z72.0 ; Hypertriglyceridemia E78.1 and Abnormal laboratory test R89.9 [place] [address] 05787- 8417 Aug, Pneumonia J18.9 ; Hypertriglyceridemia E78.1 ; COPD ( chronic obstructive pulmonary disease) J44.9 and Hyperlipidemia E78.5 [place] [id number] [place] [address] 91016- 9223 Aug, Shortness of breath R06.02 ; Anxiety associated with depression F41.8 and Chest pain, unspecified R07.9 [place] [id number] [place] [address] 05611- 3009 Jul, [address] 57051- 1733 Jun, Anxiety associated with depression F41.8 ; [...] unspecified type R11.2 and Tobacco abuse Z72.0 [place] [address] 51378- 8076 May, Hyperlipemia E78.5 [place] [address] 17900- 6043 May, [address] 74656- 2939 May, Type 2 diabetes mellitus with unspecified complications E11.[address] 63996- 8179 May, [address] 26798- 9030 May, Anxiety associated with depression F41.8 ; Type 2 diabetes mellitus with unspecified complications E11.8 ; Essential hypertension I10 ; Peripheral neuropathy G62.9 ; Low back pain M54.5 ; Other chronic pain G89.29 ; GERD (gastroesophageal reflux disease) K21.9 ; Insomnia G47.00 ; COPD (chronic obstructive pulmonary disease) J44.9 ; URI (upper respiratory infection) J06.9 and Depression F32.9 [place] [id number] [place] [address] 30818- 9274 May, Low back pain M54.5 ; Anxiety about health F41.8 ; Generalized anxiety disorder F41.1 and Acute stress reaction F43.[address] 99158- 3389 May, [address] 10455- 8139 Apr, Diabetes E11.9 ; Type 2 diabetes mellitus with unspecified complications E11.8 ; Essential hypertension I10 ; Peripheral neuropathy G62.9 ; Low back pain M54.5 ; Other chronic pain G89.29 ; GERD (gastroesophageal reflux disease) K21.9 ; Anxiety associated with depression F41.8 ; Muscle spasm of calf M62.831 ; Insomnia G47.00 and COPD (chronic obstructive pulmonary disease) J44.9 [facility] [address] [facility] [id number] [place] [address]- 5[address] May, [facility] [address] [facility] [id number], [place] [address]- 6678 May, IMMUNIZATIONS No Known Immunizations SOCIAL HISTORY Never Assessed REASON FOR VISIT Returned call PLAN OF CARE VITAL SIGNS MEDICATIONS Medication Instructions Dosage Frequency Start Date End Date Duration Status Glimepiride 1 MG Orally Once a day 1 tablet with breakfast or the first main meal of the day 24h Apr, 30 day(s) Active Fenofibrate 160 MG Orally Once a day 1 tablet with a meal 24h May, 90 days Active Metformin HCl 500 mg Orally Twice a day 2 tablets 12h 30 Active Chlorthalidone 25 MG Orally Once a day 1/2 tablet in the morning with food 24h Apr, 30 day(s) Active RESULTS No Results PROCEDURES No Known [...]
--- OUTSIDE RECORDS SUMMARY | 2018-02-19 17:14 | XMS REPORT ---
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 Name Role Phone KATIE JEFFRIES Unavailable PROBLEMS Type Condition ICD9-CM Code WMD03-EM Code Onset Dates Condition Status SNOMED Code Problem Type 2 diabetes mellitus with unspecified complications E11.8 Active 09829983 Problem Controlled substance agreement signed Z79.899 Active 751226937 Problem Low magnesium levels E83.42 Active 104345986 Problem 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 Active 06611791 Problem Osteoarthritis of acromioclavicular joint M19.019 Active 029284990 Problem Chronic renal insufficiency N18.9 Active 316658452 Problem Mild sleep apnea G47.30 Active 81684315 Problem Hyperlipidemia E78.5 Active 09294942 Problem Mixed hyperlipidemia E78.2 Active 582351698 Problem Vitamin D deficiency E55.9 Active 76267593 Problem Excessive daytime sleepiness G47.19 Active 842528066549 Problem Anxiety associated with depression F41.8 Active 897685841 Problem Peripheral neuropathy G62.9 Active 04070299 Problem Tear of left infraspinatus tendon, subsequent encounter S46.812D Active 4939381 Problem Tear of left supraspinatus tendon, subsequent encounter S46.812D Active 147534102 Problem COPD (chronic obstructive pulmonary disease) J44.9 Active 93911506 Problem GERD (gastroesophageal reflux disease) K21.9 Active 294427625 Problem Essential hypertension I10 Active 64887738 Problem Low back pain M54.5 Active 043433892 Problem Insomnia G47.00 Active 690888235 Problem Other chronic pain G89.29 Active 31343250 ALLERGIES No Information SOCIAL HISTORY Never Assessed PLAN OF CARE VITAL SIGNS MEDICATIONS Medication Instructions Dosage Frequency Start Date End Date Duration Status Baclofen 10 mg Orally Three times a day 0.5 TABLET WITH FOOD OR MILK THREE TIMES A DAY NEEDED ORALLY 28 DAYS 8h 90 days Active RESULTS No Results PROCEDURES [...]
--- OUTSIDE RECORDS SUMMARY | 2018-02-19 17:16 | XMS REPORT ---
Author Author JENI POOL Organization [facility] Address [address] 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 Investigator Name Role Phone JENI POOL Unavailable PROBLEMS Type Condition ICD9-CM Code OZO21-MM Code Onset Dates Condition Status SNOMED Code Problem Essential hypertension I10 Active 75834520 Problem Low back pain M54.5 Active 889843537 Problem Type 2 diabetes mellitus with unspecified complications E11.8 Active 26783361 Problem COPD exacerbation J44.1 Active 372363318 Problem Chronic renal insufficiency N18.9 Active 061302407 Problem Mixed hyperlipidemia E78.2 Active 576702325 Problem Other chronic pain G89.29 Active 96556824 Problem Vitamin D deficiency E55.9 Active 36286028 Problem Controlled substance agreement signed Z79.899 Active 275510061 Problem Osteoarthritis of acromioclavicular joint M19.019 Active 881615151 Problem Tear of left infraspinatus tendon, subsequent encounter S46.812D Active 1947744 Problem Mild sleep apnea G47.30 Active 85329007 Problem COPD (chronic obstructive pulmonary disease) J44.9 Active 69192520 Problem GERD (gastroesophageal reflux disease) K21.9 Active 186402397 Problem Tear of left supraspinatus tendon, subsequent encounter S46.812D Active 091473180 Problem Anxiety associated with depression F41.8 Active 589921017 Problem Insomnia G47.00 Active 447618587 Problem Peripheral neuropathy G62.9 Active 04234568 ALLERGIES Substance Reaction Event Type Date Status Cymbalta suicidal thoughts Drug Allergy Jan, Active Crestor Unknown Drug Allergy Jan, Active ENCOUNTERS Encounter Location Date Diagnosis [facility] [address] [facility] [id number] [address] Sep, [facility] [address] [facility] [id number] [address] Sep, GERD (gastroesophageal reflux disease) K21.9 and Anxiety associated with depression F41.8 [place] [id number] [place] [address] 86278- 3989 Aug, [facility] [id number] [place] [address] 74625- 1752 Aug, [facility] [address] [address] Aug, Acute recurrent maxillary sinusitis J01.01 [place] [address] 04806- 8377 Aug, [place] [address] 41251- 1671 Aug, GERD (gastroesophageal reflux disease) K21.9 and Other chronic pain G89.29 [place] [address] 53701- 3881 Aug, [facility] [id number] [place] [address]12 Aug, [place] [address] [address] Aug, Controlled substance agreement signed Z79.899 ; [...] and Enlarged lymph nodes in armpit R59.0 [place] [id number] [place] [address] 07485- 3269 Aug, Anxiety associated with depression F41.8 and GERD ( gastroesophageal reflux disease) K21.9 [place] [address] 72519- 4283 Jul, Controlled substance agreement signed Z79.899 [place] [id number] [place] [address] 55412- 9696 Jun, Anxiety associated with depression F41.8 and GERD ( gastroesophageal reflux disease) K21.9 [place] [id number] [place] [address] 11831- 7207 May, Anxiety associated with depression F41.8 and GERD ( gastroesophageal reflux disease) K21.9 [place] [id number] [place] [address] 72188- 0989 Apr, Mixed hyperlipidemia E78.2 [place] [address] 69132- 1071 Apr, Anxiety associated with depression F41.8 and GERD ( gastroesophageal reflux disease) K21.9 [place] [address] 78479- 3051 Apr, [place] [id number] [place] [address] 64323- 4224 Apr, Type 2 diabetes mellitus with unspecified complications E11.8 [place] [id number] [place] [address] 66684- 1542 Apr, [place] [id number] [place] [address] 79028- 1768 Apr, Type 2 diabetes mellitus with unspecified complications E11.8 [place] [id number] [place] [address] 07728- 6039 Apr, [facility] [id number] [place] [address] 61347- 4759 Mar, GERD (gastroesophageal reflux disease) K21.9 and Anxiety associated with depression F41.8 [place] [id number] [place] [address] 58216- 8401 13 Mar, 2017 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 [place] [address] 40136- 3220 Mar, Essential hypertension I10 ; Anxiety associated with depression F41.8 ; COPD (chronic obstructive pulmonary disease) J44.9 ; Mixed hyperlipidemia E78.2 ; Vitamin D deficiency E55.9 ; GERD (gastroesophageal reflux disease) K21.9 ; Type 2 diabetes mellitus with unspecified complications E11.8 ; Other chronic pain G89.29 and Chronic renal insufficiency N18.9 [place] [id number] [place] [address] 26669- 0095 Mar, Chronic renal insufficiency N18.9 [place] [id number] [place] [address] 55890- 6178 Feb, GERD (gastroesophageal reflux disease) K21.9 and Type 2 diabetes mellitus with unspecified complications E11.8 [place] [id number] [place] [address] 12125- 3570 Feb, Anxiety associated with depression F41.8 and Tear of left supraspinatus tendon, subsequent encounter S46.812D [place] [id number] [place] [address] 73440- 6262 Jan, Pre-operative examination for internal medicine Z01.818 [place] [id number] [place] [address] 95012- 9713 Jan, Anxiety associated with depression F41.8 and Left anterior shoulder pain M25.512 [place] [id number] [place] [address] 25867- 2689 Jan, [place] [id number] [place] [address] 06900- 4647 Jan, [place] [id number] [place] [address] 02715- 1126 Jan, Type 2 diabetes mellitus with unspecified complications E11.8 ; Essential hypertension I10 ; Other chronic pain G89.29 ; GERD ( gastroesophageal reflux disease) K21.9 ; Anxiety associated with depression F41.8 ; Insomnia G47.00 ; Hypertriglyceridemia E78.1 ; Left anterior shoulder pain M25.512 and Tobacco abuse Z72.0 [place] [address] [place] [address] 79383- 9645 Dec, Anxiety associated with depression F41.8 and Tear of left supraspinatus tendon, subsequent encounter S46.812D [place] [id number] [place] [address] 24302- 6811 Nov, [place] [id number] [place] [address] 15720- 2370 Nov, Anxiety associated with depression F41.8 and Tear of left supraspinatus tendon, subsequent encounter S46.812D [place] [id number] [place] [address] 68102- 9055 Nov, Abnormal lung sounds R09.89 and COPD (chronic obstructive pulmonary disease) with acute bronchitis J44.0 [place] [id number] [place] [address] 94244- 2813 Nov, [place] [id number] [place] [address] 41108- 3187 October, COPD (chronic obstructive pulmonary disease) with acute bronchitis J44.0 ; Abnormal lung sounds R09.89 and Medication refill Z76.0 [place] [id number] [place] [address] 15050- 8331 October, Anxiety associated with depression F41.8 [place] [id number] [place] [address] 01611- 4461 Sep, Nausea and vomiting, unspecified intactability, vomiting of unspecified type R11.2 [place] [id number] [place] [address] 57099- 0284 Sep, COPD (chronic obstructive pulmonary disease) J44.9 ; Tobacco abuse Z72.0 ; Tear of left supraspinatus tendon, subsequent encounter S46.812D and Type 2 diabetes mellitus with unspecified complications E11.8 [place] [id number] [place] [address] 67365- 6073 Sep, [facility] [address] [address] Aug, Left anterior shoulder pain M25.512 [facility] [id number] [place] [address] 26213- 8810 Aug, Left anterior shoulder pain M25.512 and Low back pain M54.5 [facility] [id number] [place] [address] 18463- 1876 Aug, [facility] [id number] [place] [address] 10207- 0851 Aug, [facility] [id number] [place] [address] 05483- 4824 Aug, [facility] [id number] [place] [address] 87421- 4102 Aug, [facility] [id number] [place] [address] 15847- 0752 Aug, Type 2 diabetes mellitus with unspecified complications E11.8 [facility] [id number] [place] [address] 46015- 6364 Aug, Type 2 diabetes mellitus with unspecified [...] E55.9 and GERD (gastroesophageal reflux disease) K21.9 [facility] [address] [address] Aug, [facility] [id number] [place] [address] 30677- 9096 May, [facility] [id number] [address]- 0098 Apr, [facility] [id number] [address]- 7176 Apr, Type 2 diabetes mellitus with unspecified [...] S49.92XA and Anxiety associated with depression F41.8 [place] [id number] [place] [address] 91648- 9821 Apr, [place] [id number] [place] [address] 20934- 2024 Apr, [place] [id number] [place] [address] 50054- 9861 Apr, [place] [id number] [place] [address] 20416- 7825 Mar, [facility] [id number] [place] [address] 05032- 5569 Feb, [facility] [id number] [place] [address] 94847- 2574 Feb, [place] [address] [address]- 4560 Jan, [facility] [id number] [place] [address] 28746- 2090 Jan, [facility] [id number] [place] [address] 07970- 1210 Jan, Type 2 diabetes mellitus with unspecified complications E11.8 ; Essential hypertension I10 and Vitamin D deficiency E55.9 [facility] [address] [address] 8663 Dec, Type 2 diabetes mellitus with unspecified complications E11.8 ; Essential hypertension I10 ; Other chronic pain G89.29 ; Anxiety associated with depression F41.8 ; Bronchitis J40 ; Vitamin D deficiency E55.9 and COPD (chronic obstructive pulmonary disease) J44.9 [place] [address] [place] [address] 11294- 9768 Nov, [place] [id number] [place] [address] 20693- 8871 October, [place] [id number] [place] [address] 26467- 0489 October, [place] [id number] [place] [address] 15414- 0211 October, [place] [id number] [place] [address] 50667- 5515 October, Dysuria R30.0 ; Bronchitis J40 ; Anxiety associated with depression F41.8 and Type 2 diabetes mellitus with unspecified complications E11.8 [place] [id number] [place] [address] 23030- 4330 October, Chronic renal insufficiency N18.9 ; Elevated white blood cell count D72.829 and Frequent UTI N39.0 [place] [id number] [place] [address] 16357- 8338 October, Chronic renal insufficiency N18.9 ; Elevated white blood cell count D72.829 and Frequent UTI N39.0 [place] [id number] [place] [address] 19890- 4690 October, [place] [id number] [place] [address] 63170- 6518 Sep, Type 2 diabetes mellitus with unspecified complications E11.8 ; Essential hypertension I10 ; COPD (chronic obstructive pulmonary disease ) J44.9 and Hospital discharge follow-up Z09 [place] [address] [place] [address] 86439- 6225 Sep, [place] [id number] [place] [address] 85003- 1102 Sep, Dyspnea R06.00 ; Other chronic pain G89.29 ; Dysuria R30.0 ; Diaphoresis R61 ; Jaundice R17 ; COPD (chronic obstructive pulmonary disease) J44.9 ; Type 2 diabetes mellitus with unspecified complications E11.8 ; Excessive daytime sleepiness G47.19 and Oliguria R34 [place] [id number] [place] [address] 59409- 1935 Sep, [place] [address] 62577- 6882 Sep, Essential hypertension I10 ; Anxiety associated with depression F41.8 ; Mixed hyperlipidemia E78.2 ; Dyspnea R06.00 ; Shortness of breath R06.02 and Chest pain, unspecified R07.9 [place] [id number] [place] [address] 35338- 6674 Sep, Chest pain R07.9 ; Hyperlipemia E78.5 ; Type 2 diabetes mellitus with unspecified complications E11.8 ; Essential hypertension I10 ; Other chronic pain G89.29 ; Anxiety associated with depression F41.8 ; COPD ( chronic obstructive pulmonary disease) J44.9 ; Low vitamin D level E55.9 ; Tobacco abuse Z72.0 ; Hypertriglyceridemia E78.1 and Abnormal laboratory test R89.9 [place] [id number] [place] [address] 67888- 9329 Aug, Pneumonia J18.9 ; Hypertriglyceridemia E78.1 ; COPD ( chronic obstructive pulmonary disease) J44.9 and Hyperlipidemia E78.5 [place] [id number] [place] [address] 30134- 3678 Aug, Shortness of breath R06.02 ; Anxiety associated with depression F41.8 and Chest pain, unspecified R07.9 [place] [id number] [place] [address] 77885- 5966 Jul, [place] [id number] [place] [address] 22168- 3702 Jun, Anxiety associated with depression F41.8 ; [...] unspecified type R11.2 and Tobacco abuse Z72.[address] 60136- 9905 May, Hyperlipemia E78.[address] 36893- 4081 May, [address] 89487- 6884 May, Type 2 diabetes mellitus with unspecified complications E11.[address] 35409- 4551 May, [address] 77339- 4136 May, Anxiety associated with depression F41.8 ; Type 2 diabetes mellitus with unspecified complications E11.8 ; Essential hypertension I10 ; Peripheral neuropathy G62.9 ; Low back pain M54.5 ; Other chronic pain G89.29 ; GERD (gastroesophageal reflux disease) K21.9 ; Insomnia G47.00 ; COPD (chronic obstructive pulmonary disease) J44.9 ; URI (upper respiratory infection) J06.9 and Depression F32.9 [place] [id number] [place] [address] 82390- 9331 May, Low back pain M54.5 ; Anxiety about health F41.8 ; Generalized anxiety disorder F41.1 and Acute stress reaction F43.[address] 69002- 2764 May, [address] 58289- 3516 Apr, Diabetes E11.9 ; Type 2 diabetes mellitus with unspecified complications E11.8 ; Essential hypertension I10 ; Peripheral neuropathy G62.9 ; Low back pain M54.5 ; Other chronic pain G89.29 ; GERD (gastroesophageal reflux disease) K21.9 ; Anxiety associated with depression F41.8 ; Muscle spasm of calf M62.831 ; Insomnia G47.00 and COPD (chronic obstructive pulmonary disease) J44.9 [facility] [address] [facility] [id number] [address]- [address] May, [facility] [address] [facility] [id number] [address]- 9406 May, IMMUNIZATIONS No Known Immunizations SOCIAL HISTORY Never Assessed REASON FOR VISIT Surgical Clearance, Left shoulder- [place] PLAN OF CARE Activity Details Follow Up prn Reason: VITAL SIGNS Height 65 in 2017-02-07 Weight 233.8 lbs 2017-02-07 Temperature 98.2 degrees Fahrenheit 2017-02-07 Heart Rate 82 bpm 2017-02-07 Respiratory Rate 20 2017-02-07 BMI 38.90 kg/m2 2017-02-07 Blood pressure systolic 124 mmHg 2017-02-07 Blood pressure diastolic 66 mmHg 2017-02-07 MEDICATIONS Medication Instructions Dosage Frequency Start Date End Date Duration Status Spiriva HandiHaler 18 INHALE THE CONTENTS OF 1 CAPSULE VIA INHALATION DEVICE EVERY DAY 30 Active Advair Diskus 250-50 MCG/DOSE Inhalation Twice a day 1 puff 12h Sep, 12 months Active Baclofen 10 mg Orally 2 times a day 1 tablet with food or milk 12h 30 days Active Singulair 10 mg Orally Once a day 1 tablet in the evening 24h 90 days Active Albuterol Sulfate (2.5 MG/3ML) 0.083% Inhalation Three times a day PRN 3 ml 30 days Active ProAir HFA 108 (90 Base) MCG/ACT Inhalation every 4 hrs 2 puffs as needed 4h Nov, Active Zofran 8 MG Orally every 8 hours, PRN 1 tablet Jun, 05 days Active QC Ibuprofen 200 MG Orally every 6 hrs 1 tablet as needed 6h May, Active Albuterol Sulfate HFA 108 (90 Base) MCG/ACT Inhalation every 4 hrs 2 puffs as needed 4h May, 12 months Active Paroxetine HCl 20 mg Orally 2 times a day 1 tablet 12h 08 Sep, 2015 90 days Active Fish Oil 1200 MG Orally Once a day 1 capsule 24h Active Omeprazole 20 mg Orally Once a day 1 capsule 24h Jan, 30 day(s ) Active Metformin HCl 1000 MG Orally Twice a day 1 tablet with meals 12h 24 Apr, 2015 30 days Active Xanax 0.5 MG Orally Twice a day and 1/2 at HS 1 tablet 28 days Active Januvia 50 mg Orally Once a day 1 tablet 24h Aug, 30 days Active Aspirin 325 MG Orally Once a day 1 tablet 24h Active Percocet 5-325 MG Orally every 6 hrs 1 tablet as needed 6h Jan, Feb, 28 days Active Ranitidine HCl 150 MG Orally Twice a day 1 capsule 12h 90 days Active Benazepril HCl 5 mg Orally Once a day 1 tablet 24h Sep, 90 days Active Fenofibrate 54 MG Orally Once a day 1 tablet with a meal 24h May, 90 days Active ReliOn Blood Glucose Test - as directed Sep, Active Metoprolol Tartrate 25 MG Orally twice a day 1 tablet with food 12h 90 days Active Metamucil 0.52 GM Orally Three times a day 2 capsules with 8 ounces of liquid 8h Active Nicorette Starter Kit 2 MG Mouth/Throat 24 time(s) a day 1 piece as needed Jan, 30 days Active RESULTS Name Result Date Reference Range CBC 2017-02-07 WBC 11.4 3.4-10.8 RBC 4.33 3.77-5.28 Hemoglobin 11.8 11.1-15.9 Hematocrit 35.9 34.0-46.6 MCV 83 79-97 MCH 27.3 26.6-33.0 MCHC 32.9 31.5-35.7 RDW 16.1 12.3-15.4 Platelets 403 150-379 Neutrophils 62 Lymphs 21 Monocytes 10 Eos 7 Basos 0 Neutrophils (Absolute) 7.1 1.4-7.0 Lymphs (Absolute) 2.4 0.7-3.1 Monocytes(Absolute) 1.1 0.1-0.9 Eos (Absolute) 0.7 0.0-0.4 Baso (Absolute) 0.1 0.0-0.2 Immature Granulocytes 0 Immature Grans (Abs) 0.0 0.0-0.1 CMP 2017-02-07 Glucose, Serum 110 65-99 BUN 18 6-24 Creatinine, Serum 1.44 0.57-1.00 eGFR If NonAfricn Am 41 >59 eGFR If Africn Am 47 >59 BUN/Creatinine Ratio 13 9-23 Sodium, Serum 137 134-144 Potassium, Serum 4.9 3.5-5.2 Chloride, Serum 94 96-106 Carbon Dioxide, Total 23 18-29 Calcium, Serum 9.4 8.7-10.2 Protein, Total, Serum 7.5 6.0-8.5 Albumin, Serum 4.1 3.5-5.5 Globulin, Total 3.4 1.5-4.5 A/G Ratio 1.2 1.2-2.2 Bilirubin, Total <0.2 0.0-1.2 Alkaline Phosphatase, S 58 39-117 AST (SGOT) 19 0-40 ALT (SGPT) 19 0-32 PROCEDURES Procedure Date Ordered Result Body Site EKG, TRACING (IN-HOUSE) 2017-02-07 N/A LAB NOT BILLED BY [facility] Feb 07, 2017 ELECTROCARDIOGRAM, TRACING Feb 07, 2017 VENIPUNCT, ROUTINE* Feb 07, 2017 INSTRUCTIONS MEDICATIONS ADMINISTERED No Known Medications [...]
--- OUTSIDE RECORDS SUMMARY | 2018-02-19 17:18 | XMS REPORT ---
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 Role Phone JEFFRIESJONO BerriosELE Unavailable PROBLEMS Type Condition ICD9-CM Code GAP44-NL Code Onset Dates Condition Status SNOMED Code Problem Essential hypertension I10 Active 78909476 Problem Low back pain M54.5 Active 729653891 Problem Type 2 diabetes mellitus with unspecified complications E11.8 Active 78932927 Problem COPD exacerbation J44.1 Active 419389466 Problem Chronic renal insufficiency N18.9 Active 094055529 Problem Mixed hyperlipidemia E78.2 Active 638492248 Problem Other chronic pain G89.29 Active 09442063 Problem Vitamin D deficiency E55.9 Active 44811774 Problem Controlled substance agreement signed Z79.899 Active 021611233 Problem Osteoarthritis of acromioclavicular joint M19.019 Active 695643371 Problem Tear of left infraspinatus tendon, subsequent encounter S46.812D Active 2310705 Problem Mild sleep apnea G47.30 Active 95177249 Problem COPD (chronic obstructive pulmonary disease) J44.9 Active 56610938 Problem GERD (gastroesophageal reflux disease) K21.9 Active 367947399 Problem Tear of left supraspinatus tendon, subsequent encounter S46.812D Active 344277676 Problem Anxiety associated with depression F41.8 Active 475366381 Problem Insomnia G47.00 Active 567108348 Problem Peripheral neuropathy G62.9 Active 73751940 ALLERGIES No Information ENCOUNTERS Encounter Location Date Diagnosis [facility] [id number] [address] Sep, [facility] [id number] [address] Sep, GERD (gastroesophageal reflux disease) K21.9 and Anxiety associated with depression F41.8 [address] [address] Aug, [facility] [id number] [place] [address] 31847- 4792 Aug, [facility] [id number] [place] [address] 39446 -8059 Aug, Acute recurrent maxillary sinusitis J01.01 [address] [id number] [place] [address] 17623- 8981 Aug, [address] [id number] [place] [address] 53147- 9828 Aug, GERD (gastroesophageal reflux disease) K21.9 and Other chronic pain G89.29 [place] [id number] [place] [address] 54497- 5056 Aug, [facility] [id number] [place] [address] 81179 -9181 Aug, [facility] [id number] [place] [address] 56804- 2794 Aug, Controlled substance agreement signed Z79.899 ; [...] and Enlarged lymph nodes in armpit R59.0 [address] [address] [id number] [place] [address] 98681- 8313 Aug, Anxiety associated with depression F41.8 and GERD ( gastroesophageal reflux disease) K21.9 [address] [address] [address] Jul, Controlled substance agreement signed Z79.899 [place] [id number] [place] [address] 38558- 8016 Jun, Anxiety associated with depression F41.8 and GERD ( gastroesophageal reflux disease) K21.9 [address] [id number] [place] [address] 85180- 9216 May, Anxiety associated with depression F41.8 and GERD ( gastroesophageal reflux disease) K21.9 [address] [id number] [place] [address] 77423- 5830 Apr, Mixed hyperlipidemia E78.2 [address] [id number] [place] [address] 61297- 6578 Apr, Anxiety associated with depression F41.8 and GERD ( gastroesophageal reflux disease) K21.9 [address] [id number] [place] [address] 82505- 9015 Apr, [address] [id number] [place] [address] 95389- 8411 Apr, Type 2 diabetes mellitus with unspecified complications E11.8 [place] [id number] [place] [address] 33295- 7245 Apr, [facility] [facility] [id number] [place] [address] 77365- 0625 Apr, Type 2 diabetes mellitus with unspecified complications E11.8 [place] [id number] [place] [address] 14890- 5928 Apr, [place] [id number] [place] [address] 10910- 6186 Mar, GERD (gastroesophageal reflux disease) K21.9 and Anxiety associated with depression F41.8 [address] [id number] [place] [address] 49074- 7968 Mar, 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 [address] [id number] [place] [address] 45500- 9251 Mar, Essential hypertension I10 ; Anxiety associated with depression F41.8 ; COPD (chronic obstructive pulmonary disease) J44.9 ; Mixed hyperlipidemia E78.2 ; Vitamin D deficiency E55.9 ; GERD (gastroesophageal reflux disease) K21.9 ; Type 2 diabetes mellitus with unspecified complications E11.8 ; Other chronic pain G89.29 and Chronic renal insufficiency N18.9 [address] [id number] [place] [address] 37085- 6317 Mar, Chronic renal insufficiency N18.9 [address] 36798- 2541 Feb, GERD (gastroesophageal reflux disease) K21.9 and Type 2 diabetes mellitus with unspecified complications E11.8 [address] [place] [address] [address]- 4752 Feb, Anxiety associated with depression F41.8 and Tear of left supraspinatus tendon, subsequent encounter S46.812D [address] [place] [address] 38864- 7138 Jan, Pre-operative examination for internal medicine Z01.818 [address] [place] [address] 78175- 3149 Jan, Anxiety associated with depression F41.8 and Left anterior shoulder pain M25.512 [address] [place] 59465- 6876 Jan, [address] [address] 88706- 5061 Jan, [place] [id number] [place] [address] 99793- 7168 Jan, Type 2 diabetes mellitus with unspecified complications E11.8 ; Essential hypertension I10 ; Other chronic pain G89.29 ; GERD ( gastroesophageal reflux disease) K21.9 ; Anxiety associated with depression F41.8 ; Insomnia G47.00 ; Hypertriglyceridemia E78.1 ; Left anterior shoulder pain M25.512 and Tobacco abuse Z72.0 [address] [place] [address] 41147- 8036 Dec, Anxiety associated with depression F41.8 and Tear of left supraspinatus tendon, subsequent encounter S46.812D [place] [id number] [place] [address] 37055- 3925 Nov, [place] [id number] [place] [address] 70899- 2469 Nov, Anxiety associated with depression F41.8 and Tear of left supraspinatus tendon, subsequent encounter S46.812D [place] [id number] [place] [address] 09907- 4953 05 Nov, 2016 Abnormal lung sounds R09.89 and COPD (chronic obstructive pulmonary disease) with acute bronchitis J44.0 [address] [id number] [place] [address] 58762- 3110 Nov, [place] [id number] [place] [address] 02271- 5319 October, COPD (chronic obstructive pulmonary disease) with acute bronchitis J44.0 ; Abnormal lung sounds R09.89 and Medication refill Z76.0 [address] [id number] [place] [address] 53684- 2052 October, Anxiety associated with depression F41.8 [address] [place] [address] 56171- 1462 17 Sep, 2016 Nausea and vomiting, unspecified intactability, vomiting of unspecified type R11.2 [place] [id number] [place] [address] 62245- 0959 Sep, COPD (chronic obstructive pulmonary disease) J44.9 ; Tobacco abuse Z72.0 ; Tear of left supraspinatus tendon, subsequent encounter S46.812D and Type 2 diabetes mellitus with unspecified complications E11.8 [place] [id number] [place] [address] 41916- 6995 Sep, [place] [id number] [place] [address] 77984- 8905 Aug, Left anterior shoulder pain M25.512 [facility] [address] [address] Aug, Left anterior shoulder pain M25.512 and Low back pain M54.5 [facility] [address] [address] Aug, [facility] [id number] [place] [address] 79400- 9593 Aug, [facility] [address] [place] [address] 35918- 4750 Aug, [facility] [id number] [place] [address] 69547- 3425 Aug, [place] [id number] [place] [address] 79900- 1991 Aug, Type 2 diabetes mellitus with unspecified complications E11.8 [facility] [address], [place] [address] Aug, Type 2 diabetes mellitus with unspecified [...] E55.9 and GERD (gastroesophageal reflux disease) K21.9 [facility] [address], [place] [address] Aug, [address] [address] May, [facility] [address] [address] Apr, [facility] [address] [address]- 6[address] Apr, Type 2 diabetes mellitus with unspecified [...] S49.92XA and Anxiety associated with depression F41.8 [facility] [id number], [place] [address] Apr, [facility] [id number] [place] [address] 32694- 9774 Apr, [facility] [id number] [place] [address] 78333- 9491 Apr, [facility] [id number] [place] [address] 57827- 9399 Mar, [facility] [id number] [place] [address] 20740- 3123 Feb, [facility] [id number] [place] [address] 82321- 1282 Feb, [facility] [address] [address] Jan, [facility] [id number] [address]- 0[address] Jan, [facility] [id number] [address] Jan, Type 2 diabetes mellitus with unspecified complications E11.8 ; Essential hypertension I10 and Vitamin D deficiency E55.9 [facility] [address] [address]- 4[address] Dec, Type 2 diabetes mellitus with unspecified complications E11.8 ; Essential hypertension I10 ; Other chronic pain G89.29 ; Anxiety associated with depression F41.8 ; Bronchitis J40 ; Vitamin D deficiency E55.9 and COPD (chronic obstructive pulmonary disease) J44.9 [address] [address]- [address] Nov, [address] [id number] [place] [address] 95276- 0749 October, [id number] [place] [address] 20705- 8968 October, [address] [id number] [place] [address] 21570- 3659 October, [address] [id number] [place] [address] 79139- 3553 October, Dysuria R30.0 ; Bronchitis J40 ; Anxiety associated with depression F41.8 and Type 2 diabetes mellitus with unspecified complications E11.8 [address] [place] [id number] [place] [address] 83256- 8416 October, Chronic renal insufficiency N18.9 ; Elevated white blood cell count D72.829 and Frequent UTI N39.0 [address] [id number] [place] [address] 58014- 4646 October, Chronic renal insufficiency N18.9 ; Elevated white blood cell count D72.829 and Frequent UTI N39.0 [address] [address]- 8[address] October, [address] [place] [id number] [place] [address] 77990- 3351 Sep, Type 2 diabetes mellitus with unspecified complications E11.8 ; Essential hypertension I10 ; COPD (chronic obstructive pulmonary disease ) J44.9 and Hospital discharge follow-up Z09 [address] [place] [place] [address] 71849- 5067 Sep, [address] [place] [place] [address] 50772- 5577 Sep, Dyspnea R06.00 ; Other chronic pain G89.29 ; Dysuria R30.0 ; Diaphoresis R61 ; Jaundice R17 ; COPD (chronic obstructive pulmonary disease) J44.9 ; Type 2 diabetes mellitus with unspecified complications E11.8 ; Excessive daytime sleepiness G47.19 and Oliguria R34 [address] [id number] [place] [address] 36778- 8310 Sep, [address] [id number] [place] [address] 86507- 9965 Sep, Essential hypertension I10 ; Anxiety associated with depression F41.8 ; Mixed hyperlipidemia E78.2 ; Dyspnea R06.00 ; Shortness of breath R06.02 and Chest pain, unspecified R07.[address] [address]408- 6400 Sep, Chest pain R07.9 ; Hyperlipemia E78.5 ; Type 2 diabetes mellitus with unspecified complications E11.8 ; Essential hypertension I10 ; Other chronic pain G89.29 ; Anxiety associated with depression F41.8 ; COPD ( chronic obstructive pulmonary disease) J44.9 ; Low vitamin D level E55.9 ; Tobacco abuse Z72.0 ; Hypertriglyceridemia E78.1 and Abnormal laboratory test R89.9 [id number] [place] [address] 24830- 3035 Aug, Pneumonia J18.9 ; Hypertriglyceridemia E78.1 ; COPD ( chronic obstructive pulmonary disease) J44.9 and Hyperlipidemia E78.5 [id number] [place] [address] 54295- 5361 Aug, Shortness of breath R06.02 ; Anxiety associated with depression F41.8 and Chest pain, unspecified R07.9 [address] [id number] [place] [address] 59457- 6084 Jul, [id number] [place] [address] 75702- 4182 Jun, Anxiety associated with depression F41.8 ; [...] unspecified type R11.2 and Tobacco abuse Z72.0 [id number] [place] [address] 62433- 4941 May, Hyperlipemia E78.[address] 84624- 4270 May, [address] 70627- 5158 May, Type 2 diabetes mellitus with unspecified complications E11.[address] 50158- 9066 May, [id number] [place] [address] 44743- 9839 May, Anxiety associated with depression F41.8 ; Type 2 diabetes mellitus with unspecified complications E11.8 ; Essential hypertension I10 ; Peripheral neuropathy G62.9 ; Low back pain M54.5 ; Other chronic pain G89.29 ; GERD (gastroesophageal reflux disease) K21.9 ; Insomnia G47.00 ; COPD (chronic obstructive pulmonary disease) J44.9 ; URI (upper respiratory infection) J06.9 and Depression F32.9 [id number] [place] [address] 28443- 6418 May, Low back pain M54.5 ; Anxiety about health F41.8 ; Generalized anxiety disorder F41.1 and Acute stress reaction F43.0 [id number] [place] [address] 48206- 4941 May, [id number] [place] [address] 84690- 1059 Apr, Diabetes E11.9 ; Type 2 diabetes mellitus with unspecified complications E11.8 ; Essential hypertension I10 ; Peripheral neuropathy G62.9 ; Low back pain M54.5 ; Other chronic pain G89.29 ; GERD (gastroesophageal reflux disease) K21.9 ; Anxiety associated with depression F41.8 ; Muscle spasm of calf M62.831 ; Insomnia G47.00 and COPD (chronic obstructive pulmonary disease) J44.9 [facility] [address] [facility] [place] [id number] [place] [address] May, [facility] [address] [facility] [id number] [address] 9[address] May, IMMUNIZATIONS No Known Immunizations SOCIAL HISTORY Never Assessed REASON FOR VISIT Medication refill request PLAN OF CARE VITAL SIGNS MEDICATIONS Medication Instructions Dosage Frequency Start Date End Date Duration Status Hydrocodone-Acetaminophen 5-325 MG Orally every 8 hrs as needed for pain 1 tablet as needed Feb, 28 days Active Xanax 0.5 MG Orally [...]
--- OUTSIDE RECORDS SUMMARY | 2018-02-19 17:18 | XMS REPORT ---
Author Author KATIE JEFFRIES Organization [facility] Address [address] [place] [address] Care Team Providers Care [facility] Name Role Phone KATIE JEFFRIES Unavailable PROBLEMS Type Condition ICD9-CM Code PQJ57-QO Code Onset Dates Condition Status SNOMED Code Problem COPD (chronic obstructive pulmonary disease) J44.9 Active 99266502 Problem Low back pain M54.5 Active 925203153 Problem GERD (gastroesophageal reflux disease) K21.9 Active 028594409 Problem Chronic renal insufficiency N18.9 Active 497328888 Problem Vitamin D deficiency E55.9 Active 34728371 Problem Type 2 diabetes mellitus with unspecified complications E11.8 Active 33380530 Problem Other chronic pain G89.29 Active 02012622 Problem Mixed hyperlipidemia E78.2 Active 472508256 Problem Controlled substance agreement signed Z79.899 Active 314519620 Problem Anxiety associated with depression F41.8 Active 993657035 Problem Peripheral neuropathy G62.9 Active 87244998 Problem Mild sleep apnea G47.30 Active 10187268 Problem Essential hypertension I10 Active 54835131 Problem Osteoarthritis of acromioclavicular joint M19.019 Active 680546476 Problem Insomnia G47.00 Active 656869930 ALLERGIES No Information ENCOUNTERS Encounter Location Date Diagnosis [facility] [address] [facility] [id number] [address] Nov, [facility] [address] [facility] [id number] [place] [address] October, [facility] [id number] [address] October, [facility] [id number] [address] October, Type 2 diabetes mellitus with unspecified complications E11.8 [place] [id number] [address] October, [facility] [address] [address] 9[address] October, [facility] [address] [address] October, Type 2 diabetes mellitus with unspecified complications E11.8 [facility] [id number] [place] [address] 74582- 5013 October, [facility] [id number] [place] [address] 99373- 3041 October, [facility] [id number] [place] [address] 46312- 6201 October, Type 2 diabetes mellitus with unspecified complications E11.8 [facility] [id number] [place] [address] 83898- 3455 October, Type 2 diabetes mellitus with unspecified complications E11.8 ; Essential hypertension I10 ; Chronic renal insufficiency N18.9 ; BMI 40.0-44.9, adult Z68.41 ; Other chronic pain G89.29 ; Anxiety associated with depression F41.8 and Right medial knee pain M25.561 [place] [address] [address] October, GERD (gastroesophageal reflux disease) K21.9 and Anxiety associated with depression F41.8 [facility] [address] [address] 8[address] October, Anxiety associated with depression F41.8 [facility] [address] [address] Sep, [facility] [id number] [place] [address] 93368- 0539 Sep, GERD (gastroesophageal reflux disease) K21.9 and Anxiety associated with depression F41.8 [facility] [id number] [place] [address] 52075- 3455 Aug, [facility] [address] [address] 114[address] Aug, [facility] [id number] [place] [address] 41447 -2218 Aug, Acute recurrent maxillary sinusitis J01.01 [place] [id number] [place] [address] 52967- 5315 Aug, [place] [id number] [place] [address] 13208- 5338 Aug, GERD (gastroesophageal reflux disease) K21.9 and Other chronic pain G89.29 [place] [id number] [place] [address] 18570- 1222 Aug, [facility] [id number] [place] [address] 52763 -5035 Aug, [place] [id number] [place] [address] 89549- 0666 Aug, Controlled substance agreement signed Z79.899 ; [...] and Enlarged lymph nodes in armpit R59.0 [place] [id number] [place] [address] 15992- 4309 Aug, Anxiety associated with depression F41.8 and GERD ( gastroesophageal reflux disease) K21.9 [place] [id number] [place] [address] 75137- 6686 Jul, Controlled substance agreement signed Z79.899 [place] [id number] [place] [address] 66804- 9973 Jun, Anxiety associated with depression F41.8 and GERD ( gastroesophageal reflux disease) K21.9 [place] [id number] [place] [address] 09909- 8123 May, Anxiety associated with depression F41.8 and GERD ( gastroesophageal reflux disease) K21.9 [place] [id number] [place] [address] 18391- 2451 Apr, Mixed hyperlipidemia E78.2 [place] [id number] [place] [address] 40703- 5117 Apr, Anxiety associated with depression F41.8 and GERD ( gastroesophageal reflux disease) K21.9 [place] [id number] [place] [address] 26626- 3801 Apr, [place] [id number] [place] [address] 79547- 1124 Apr, Type 2 diabetes mellitus with unspecified complications E11.8 [place] [id number] [place] [address] 98824- 0840 Apr, [place] [id number] [place] [address] 92151- 8882 Apr, Type 2 diabetes mellitus with unspecified complications E11.8 [place] [id number] [place] [address] 17877- 1434 Apr, [place] [id number] [place] [address] 80858- 9579 Mar, GERD (gastroesophageal reflux disease) K21.9 and Anxiety associated with depression F41.8 [place] [id number] [place] [address] 22731- 5381 Mar, 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 [place] [id number] [place] [address] 87157- 7778 Mar, Essential hypertension I10 ; Anxiety associated with depression F41.8 ; COPD (chronic obstructive pulmonary disease) J44.9 ; Mixed hyperlipidemia E78.2 ; Vitamin D deficiency E55.9 ; GERD (gastroesophageal reflux disease) K21.9 ; Type 2 diabetes mellitus with unspecified complications E11.8 ; Other chronic pain G89.29 and Chronic renal insufficiency N18.9 [place] [id number] [place] [address] 79243- 4736 Mar, Chronic renal insufficiency N18.9 [place] [address] [address]- [address]270 Feb, GERD (gastroesophageal reflux disease) K21.9 and Type 2 diabetes mellitus with unspecified complications E11.[address] [address]7- [address]65 Feb, Anxiety associated with depression F41.8 and Tear of left supraspinatus tendon, subsequent encounter S46.812D [place] [address] [address]886- 0199 Jan, Pre-operative examination for internal medicine Z01.818 [place] [address] 73526- 7788 Jan, Anxiety associated with depression F41.8 and Left anterior shoulder pain M25.512 [place] [id number] [place] [address] 37957- 8978 Jan, [place] [id number] [place] [address] 83856- 9588 Jan, [place] [address] 79526- 6811 Jan, Type 2 diabetes mellitus with unspecified complications E11.8 ; Essential hypertension I10 ; Other chronic pain G89.29 ; GERD ( gastroesophageal reflux disease) K21.9 ; Anxiety associated with depression F41.8 ; Insomnia G47.00 ; Hypertriglyceridemia E78.1 ; Left anterior shoulder pain M25.512 and Tobacco abuse Z72.0 [place] [address] 83685- 2102 Dec, Anxiety associated with depression F41.8 and Tear of left supraspinatus tendon, subsequent encounter S46.812D [place] [id number] [place] [address] 18460- 7328 Nov, [place] [id number] [place] [address] 20652- 6138 Nov, Anxiety associated with depression F41.8 and Tear of left supraspinatus tendon, subsequent encounter S46.812D [place] [id number] [place] [address] 06098- 9361 Nov, Abnormal lung sounds R09.89 and COPD (chronic obstructive pulmonary disease) with acute bronchitis J44.0 [place] [id number] [place] [address] 24130- 1552 Nov, [place] [address] 39098- 8676 October, COPD (chronic obstructive pulmonary disease) with acute bronchitis J44.0 ; Abnormal lung sounds R09.89 and Medication refill Z76.0 [place] [id number] [place] [address] 65510- 3393 October, Anxiety associated with depression F41.8 [place] [id number] [place] [address] 28539- 7061 Sep, Nausea and vomiting, unspecified intactability, vomiting of unspecified type R11.2 [place] [id number] [place] [address] 68599- 7756 Sep, COPD (chronic obstructive pulmonary disease) J44.9 ; Tobacco abuse Z72.0 ; Tear of left supraspinatus tendon, subsequent encounter S46.812D and Type 2 diabetes mellitus with unspecified complications E11.8 [place] [id number] [place] [address] 22792- 8464 Sep, [place] [id number] [place] [address] 27001- 0661 Aug, Left anterior shoulder pain M25.512 [facility] [address] [address]- 7241 Aug, Left anterior shoulder pain M25.512 and Low back pain M54.5 [facility] [address] [address]- 0775 Aug, [facility] [id number] [place] [address] 84856- 6509 Aug, [facility] [address] [address]- 2922 Aug, [facility] [id number] [place] [address] 12336- 6062 Aug, [facility] [id number] [place] [address] 86686- 4517 Aug, Type 2 diabetes mellitus with unspecified complications E11.8 [facility] [address] [address]- 2707 Aug, Type 2 diabetes mellitus with unspecified [...] E55.9 and GERD (gastroesophageal reflux disease) K21.9 [facility] [address] [address]- 1584 Aug, [facility] [address] [address]- 0451 May, [facility] [id number] [address]- 4817 Apr, [facility] [address] [address]- 8576 Apr, Type 2 diabetes mellitus with unspecified [...] S49.92XA and Anxiety associated with depression F41.8 [facility] [address] 81809- 1825 Apr, [facility] [id number] [place] [address] 58369- 9549 Apr, [facility] [id number] [place] [address] 97317- 2683 Apr, [facility] [id number] [place] [address] 32302- 7009 Mar, [facility] [id number] [place] [address] 53761- 5032 Feb, [facility] [id number] [place] [address] 56325- 7417 Feb, [facility] [id number] [place] [address] 26277- 2778 Jan, [facility] [id number] [place] [address] 17955- 4070 Jan, [facility] [id number] [place] [address] 15746- 4282 Jan, Type 2 diabetes mellitus with unspecified complications E11.8 ; Essential hypertension I10 and Vitamin D deficiency E55.9 [facility] [id number] [place] [address] 23959154- 3466 Dec, Type 2 diabetes mellitus with unspecified complications E11.8 ; Essential hypertension I10 ; Other chronic pain G89.29 ; Anxiety associated with depression F41.8 ; Bronchitis J40 ; Vitamin D deficiency E55.9 and COPD (chronic obstructive pulmonary disease) J44.9 [place] [address] [address]- 2700 Nov, [place] [id number] [address]- 8537 October, [place] [address] [address]- 3494 October, [place] [id number] [place] [address] 14856- 6386 October, [place] [id number] [place] [address] 40977- 8181 October, Dysuria R30.0 ; Bronchitis J40 ; Anxiety associated with depression F41.8 and Type 2 diabetes mellitus with unspecified complications E11.8 [place] [address] [address]- 7099 October, Chronic renal insufficiency N18.9 ; Elevated white blood cell count D72.829 and Frequent UTI N39.0 [place] [address] [place] [address] 64594- 4487 October, Chronic renal insufficiency N18.9 ; Elevated white blood cell count D72.829 and Frequent UTI N39.0 [place] [address] [address]- 9742 October, [place] [address] [address]- 9508 Sep, Type 2 diabetes mellitus with unspecified complications E11.8 ; Essential hypertension I10 ; COPD (chronic obstructive pulmonary disease ) J44.9 and Hospital discharge follow-up Z09 [place] [address] [place] [address] 04592- 7851 Sep, [place] [address] [address]- 5169 Sep, Dyspnea R06.00 ; Other chronic pain G89.29 ; Dysuria R30.0 ; Diaphoresis R61 ; Jaundice R17 ; COPD (chronic obstructive pulmonary disease) J44.9 ; Type 2 diabetes mellitus with unspecified complications E11.8 ; Excessive daytime sleepiness G47.19 and Oliguria R34 [place] [id number] [place] [address] 52646- 3950 Sep, [place] [id number] [place] [address] 33366- 2035 Sep, Essential hypertension I10 ; Anxiety associated with depression F41.8 ; Mixed hyperlipidemia E78.2 ; Dyspnea R06.00 ; Shortness of breath R06.02 and Chest pain, unspecified R07.[address] 34041- 8897 Sep, Chest pain R07.9 ; Hyperlipemia E78.5 ; Type 2 diabetes mellitus with unspecified complications E11.8 ; Essential hypertension I10 ; Other chronic pain G89.29 ; Anxiety associated with depression F41.8 ; COPD ( chronic obstructive pulmonary disease) J44.9 ; Low vitamin D level E55.9 ; Tobacco abuse Z72.0 ; Hypertriglyceridemia E78.1 and Abnormal laboratory test R89.9 [place] [address] 87562- 5651 Aug, Pneumonia J18.9 ; Hypertriglyceridemia E78.1 ; COPD ( chronic obstructive pulmonary disease) J44.9 and Hyperlipidemia E78.5 [place] [address] [id number] [place] [address] 56549- 2982 Aug, Shortness of breath R06.02 ; Anxiety associated with depression F41.8 and Chest pain, unspecified R07.9 [place] [id number] [place] [address] 90158- 0284 Jul, [address] 32834- 7614 Jun, Anxiety associated with depression F41.8 ; [...] unspecified type R11.2 and Tobacco abuse Z72.0 [place] [address] 23841- 3321 May, Hyperlipemia E78.5 [place] [address] 26489- 3155 May, [address] 70676- 2296 May, Type 2 diabetes mellitus with unspecified complications E11.[address] 84440- 6960 May, [address] 08087- 6210 May, Anxiety associated with depression F41.8 ; Type 2 diabetes mellitus with unspecified complications E11.8 ; Essential hypertension I10 ; Peripheral neuropathy G62.9 ; Low back pain M54.5 ; Other chronic pain G89.29 ; GERD (gastroesophageal reflux disease) K21.9 ; Insomnia G47.00 ; COPD (chronic obstructive pulmonary disease) J44.9 ; URI (upper respiratory infection) J06.9 and Depression F32.9 [place] [id number] [place] [address] 64198- 4690 May, Low back pain M54.5 ; Anxiety about health F41.8 ; Generalized anxiety disorder F41.1 and Acute stress reaction F43.[address] 57243- 5388 May, [address] 06150- 4065 Apr, Diabetes E11.9 ; Type 2 diabetes mellitus with unspecified complications E11.8 ; Essential hypertension I10 ; Peripheral neuropathy G62.9 ; Low back pain M54.5 ; Other chronic pain G89.29 ; GERD (gastroesophageal reflux disease) K21.9 ; Anxiety associated with depression F41.8 ; Muscle spasm of calf M62.831 ; Insomnia G47.00 and COPD (chronic obstructive pulmonary disease) J44.9 [facility] [address] [facility] [id number] [place] [address]- 8645 May, [facility] [address] [facility] [id number] [place] [address]- 0128 May, IMMUNIZATIONS No Known Immunizations SOCIAL HISTORY Never Assessed REASON FOR VISIT Controlled Med Refill 05/10 PLAN OF CARE VITAL SIGNS MEDICATIONS Medication Instructions Dosage Frequency Start Date End Date Duration Status Xanax 0.5 MG Orally Twice a day and 1/2 at HS 1 tablet 28 days Active Hydrocodone-Acetaminophen 5-325 MG Orally twice a day 1 tablet as needed 12h 28 Apr, 2017 28 days Active RESULTS No Results [...]
--- OUTSIDE RECORDS SUMMARY | 2018-02-19 17:19 | XMS REPORT ---
Author Author KATIE JEFFRIES Organization [facility] Address [address] [place] [address] Care Team Providers Care Continuous Improvement Consultant Name Role Phone KATIE JEFFRIES Unavailable PROBLEMS Type Condition ICD9-CM Code HRT61-EA Code Onset Dates Condition Status SNOMED Code Problem Other chronic pain G89.29 Active 29853549 Problem Insomnia G47.00 Active 816072882 Problem Type 2 diabetes mellitus with unspecified complications E11.8 Active 19842039 Problem Constipation by delayed colonic transit K59.01 Active 81942947 Problem Chronic kidney disease (CKD) stage G3b/A1, moderately decreased glomerular filtration rate (GFR) between 30-44 mL/min/1.73 square meter and albuminuria creatinine ratio less than 30 mg/g N18.3 Active 062038352 Problem Mixed hyperlipidemia E78.2 Active 377655795 Problem Controlled substance agreement signed Z79.899 Active 716616877 Problem 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 Active 91137139 Problem Vitamin D deficiency E55.9 Active 91672520 Problem Peripheral neuropathy G62.9 Active 74804692 Problem Essential hypertension I10 Active 99395044 Problem Osteoarthritis of acromioclavicular joint M19.019 Active 177310345 Problem COPD (chronic obstructive pulmonary disease) J44.9 Active 36494954 Problem Anxiety associated with depression F41.8 Active 658853792 Problem GERD (gastroesophageal reflux disease) K21.9 Active 696727894 ALLERGIES No Information ENCOUNTERS Encounter Location Date Diagnosis [facility] [id number] [address] Jan, [facility] [address] [address] Jan, Type 2 diabetes mellitus with unspecified complications E11.8 [facility] [id number] [address] Jan, [facility] [address] [address] Jan, Other chronic pain G89.29 and Anxiety associated with depression F41.8 [facility] [id number] [address] Jan, [facility] [id number] [place] [address] 01024- 9340 Dec, [facility] [place] [id number] [place] [address] 17657- 4293 Dec, Type 2 diabetes mellitus with unspecified [...] and 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 [facility] [id number] [place] [address] 09570- 7528 Dec, [facility] [id number] [place] [address] 11377- 1229 Dec, Type 2 diabetes mellitus with unspecified complications E11.8 [facility] [address] [address] Dec, [facility] [id number] [place] [address] 64452- 5291 Dec, Type 2 diabetes mellitus with unspecified complications E11.8 [facility] [id number] [place] [address] 88727- 1909 Dec, Type 2 diabetes mellitus with unspecified complications E11.8 [facility] [id number] [address] 9117 Dec, [facility] [id number] [address] 1415 Dec, Type 2 diabetes mellitus with unspecified complications E11.8 [facility] [address] [address] 7939 Dec, [facility] [address] [address] 1447 Dec, [facility] [id number] [place] [address] 25202- 9298 Dec, [facility] [address] [address] 5456 Dec, [facility] [id number] [place] [address] 73173- 4702 Dec, [facility] [id number] [address] 4046 Dec, Other chronic pain G89.29 and Anxiety associated with depression F41.8 [facility] [address] [address] 9494 Dec, Type 2 diabetes mellitus with unspecified complications E11.8 [facility] [address] [address] 24[address] Nov, [facility] [address] [address] 0916 Nov, [facility] [address] [address] 3934 Nov, [facility] [address] [address] 4848 Nov, [facility] [id number] [address] 2965 Nov, Type 2 diabetes mellitus with unspecified complications E11.8 [facility] [address] [address]- 6668 Nov, [facility] [address] [address] 5194 Nov, Type 2 diabetes mellitus with unspecified complications E11.8 [facility] [address] [address] 3[address] 11 Nov, 2017 Other chronic pain G89.29 and Anxiety associated with depression F41.8 [facility] [address] [address] 6[address] 08 Nov, 2017 Chronic renal insufficiency N18.9 [facility] [id number] [address] 2795 07 Nov, 2017 Other chronic pain G89.29 [facility] [id number] [address] 5364 Nov, Type 2 diabetes mellitus with unspecified complications E11.8 [facility] [address], [place] [address] 2964 October, [facility] [address] [address] 4177 October, [facility] [address] [address]- 1581 October, Type 2 diabetes mellitus with unspecified complications E11.8 [facility] [address], [place] [address] 7406 October, [facility] [address] [address]- 5699 October, [facility] [address] [address]- 0427 October, Type 2 diabetes mellitus with unspecified complications E11.8 [facility] [address] [address] 7659 October, [facility] [address] [address]- 6635 October, [facility] [address] [address] 3649 October, Type 2 diabetes mellitus with unspecified complications E11.8 [facility] [id number] [place] [address] 77196- 3557 October, Type 2 diabetes mellitus with unspecified complications E11.8 ; Essential hypertension I10 ; Chronic renal insufficiency N18.9 ; BMI 40.0-44.9, adult Z68.41 ; Other chronic pain G89.29 ; Anxiety associated with depression F41.8 and Right medial knee pain M25.561 [place] [place] [address] [address]- 0813 October, GERD (gastroesophageal reflux disease) K21.9 and Anxiety associated with depression F41.8 [facility] [address] 38139- 4815 October, Anxiety associated with depression F41.8 [place] [address] 45523- 3895 Sep, [place] [address] 9[address]10- 6701 Sep, GERD (gastroesophageal reflux disease) K21.9 and Anxiety associated with depression F41.8 [address] [address] 05500- 1731 Aug, [facility] [id number] [place] [address] 08221- 5556 Aug, [facility] [id number] [place] [address] 14893 -3300 Aug, Acute recurrent maxillary sinusitis J01.01 [facility] [id number] [place] [address] 52075- 3800 Aug, [place] [address] 05778- 8560 Aug, GERD (gastroesophageal reflux disease) K21.9 and Other chronic pain G89.29 [place] [address] 64336- 9216 Aug, [facility] [address], [place] [address] Aug, [facility] [id number] [place] [address] 96036- 8727 Aug, Controlled substance agreement signed Z79.899 ; [...] and Enlarged lymph nodes in armpit R59.0 [facility] [id number] [place] [address] 82189- 6433 Aug, Anxiety associated with depression F41.8 and GERD ( gastroesophageal reflux disease) K21.9 [facility] [id number] [place] [address] 78273- 1463 Jul, Controlled substance agreement signed Z79.899 [facility] [id number] [place] [address] 75061- 5584 Jun, Anxiety associated with depression F41.8 and GERD ( gastroesophageal reflux disease) K21.9 [facility] [id number] [place] [address] 39692- 3453 May, Anxiety associated with depression F41.8 and GERD ( gastroesophageal reflux disease) K21.9 [facility] [id number] [place] [address] 01078- 0347 Apr, Mixed hyperlipidemia E78.2 [facility] [id number] [place] [address] 86293- 3630 Apr, Anxiety associated with depression F41.8 and GERD ( gastroesophageal reflux disease) K21.9 [facility] [id number] [place] [address] 65265- 1511 Apr, [place] [address] [address]- 2670 Apr, Type 2 diabetes mellitus with unspecified complications E11.8 [facility] [address], [place] [address]- 0540 Apr, [facility] [place] [id number] [place] [address] 79437- 8657 Apr, Type 2 diabetes mellitus with unspecified complications E11.8 [facility] [id number] [place] [address] 80968- 7972 Apr, [facility] [id number] [place] [address] 84743- 6275 Mar, GERD (gastroesophageal reflux disease) K21.9 and Anxiety associated with depression F41.8 [facility] [id number] [place] [address] 21158- 8165 Mar, 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 [facility] [id number] [place] [address] 66215- 2177 Mar, Essential hypertension I10 ; Anxiety associated with depression F41.8 ; COPD (chronic obstructive pulmonary disease) J44.9 ; Mixed hyperlipidemia E78.2 ; Vitamin D deficiency E55.9 ; GERD (gastroesophageal reflux disease) K21.9 ; Type 2 diabetes mellitus with unspecified complications E11.8 ; Other chronic pain G89.29 and Chronic renal insufficiency N18.9 [facility] [id number] [place] [address] 59452- 3341 Mar, Chronic renal insufficiency N18.9 [facility] [id number] [place] [address] 73215- 1255 Feb, GERD (gastroesophageal reflux disease) K21.9 and Type 2 diabetes mellitus with unspecified complications E11.8 [facility] [address] [address]- 7868 Feb, Anxiety associated with depression F41.8 and Tear of left supraspinatus tendon, subsequent encounter S46.812D [facility] [address], [place] [address]- 6182 Jan, Pre-operative examination for internal medicine Z01.818 [facility] [id number] [place] [address] 63090- 4033 Jan, Anxiety associated with depression F41.8 and Left anterior shoulder pain M25.512 [facility] [id number] [place] [address] 70217- 7179 Jan, [facility] [id number] [place] [address] 17653- 1999 Jan, [facility] [id number] [place] [address] 01183- 0791 Jan, Type 2 diabetes mellitus with unspecified complications E11.8 ; Essential hypertension I10 ; Other chronic pain G89.29 ; GERD ( gastroesophageal reflux disease) K21.9 ; Anxiety associated with depression F41.8 ; Insomnia G47.00 ; Hypertriglyceridemia E78.1 ; Left anterior shoulder pain M25.512 and Tobacco abuse Z72.0 [facility] [id number] [place] [address] 36714- 7646 Dec, Anxiety associated with depression F41.8 and Tear of left supraspinatus tendon, subsequent encounter S46.812D [address] [place] [place] [address] 21720- 2118 Nov, [facility] [id number] [place] [address] 53867- 6930 Nov, Anxiety associated with depression F41.8 and Tear of left supraspinatus tendon, subsequent encounter S46.812D [facility] [id number] [place] [address] 14625- 8695 05 Nov, 2016 Abnormal lung sounds R09.89 and COPD (chronic obstructive pulmonary disease) with acute bronchitis J44.0 [facility] [id number] [place] [address] 97514- 3757 Nov, [facility] [id number] [place] [address] 18908- 8533 October, COPD (chronic obstructive pulmonary disease) with acute bronchitis J44.0 ; Abnormal lung sounds R09.89 and Medication refill Z76.0 [facility] [id number] [place] [address] 66170- 2647 October, Anxiety associated with depression F41.8 [facility] [address] 01079- 3905 Sep, Nausea and vomiting, unspecified intactability, vomiting of unspecified type R11.2 [address] [place] [address] 40628- 2849 Sep, COPD (chronic obstructive pulmonary disease) J44.9 ; Tobacco abuse Z72.0 ; Tear of left supraspinatus tendon, subsequent encounter S46.812D and Type 2 diabetes mellitus with unspecified complications E11.8 [facility] [id number] [place] [address] 82762- 0463 Sep, [address] [address] 47250- 9429 Aug, Left anterior shoulder pain M25.512 [facility] [id number] [place] [address] 96290- 3453 Aug, Left anterior shoulder pain M25.512 and Low back pain M54.5 [facility] [id number] [place] [address] 07585- 0482 Aug, [facility] [id number] [place] [address] 23527- 7286 Aug, [address] [address] 52514- 4949 Aug, [facility] [id number] [place] [address] 72680- 3374 Aug, [address] [place] [place] [address]- 6038 Aug, Type 2 diabetes mellitus with unspecified complications E11.8 [address] [address] 71871- 1339 Aug, Type 2 diabetes mellitus with unspecified [...] E55.9 and GERD (gastroesophageal reflux disease) K21.9 [address] [place] [address] 27120- 9936 Aug, [place] [address] 09606- 2520 May, [address] 46584- 8903 Apr, [address] [address] 79826- 9263 Apr, Type 2 diabetes mellitus with unspecified [...] S49.92XA and Anxiety associated with depression F41.8 [address] [place] 68559- 5375 Apr, [place] [address] 25883- 0830 Apr, [place] [address] 22078- 9006 Apr, [facility] [id number] [address]- 4364 Mar, [facility] [address] [address]- 0177 Feb, [facility] [address] [address]- 1061 Feb, [facility] [address] [address]- 2288 Jan, [facility] [address], [place] [address]- 7085 Jan, [facility] [address] [address]- 6390 Jan, Type 2 diabetes mellitus with unspecified complications E11.8 ; Essential hypertension I10 and Vitamin D deficiency E55.9 [facility] [address], [place] [address]- 9728 Dec, Type 2 diabetes mellitus with unspecified complications E11.8 ; Essential hypertension I10 ; Other chronic pain G89.29 ; Anxiety associated with depression F41.8 ; Bronchitis J40 ; Vitamin D deficiency E55.9 and COPD (chronic obstructive pulmonary disease) J44.9 [facility] [address], [place] [address]- 7062 Nov, [facility] [address] [address]- 7882 October, [facility] [address] [address]- 2324 October, [facility] [address] [address]- 8772 October, [facility] [address], [place] [address]- 5498 October, Dysuria R30.0 ; Bronchitis J40 ; Anxiety associated with depression F41.8 and Type 2 diabetes mellitus with unspecified complications E11.8 [facility] [address] [address]- 2326 October, Chronic renal insufficiency N18.9 ; Elevated white blood cell count D72.829 and Frequent UTI N39.0 [facility] [id number] [place] [address] 04550- 7777 October, Chronic renal insufficiency N18.9 ; Elevated white blood cell count D72.829 and Frequent UTI N39.0 [facility] [id number] [place] [address] 25344- 3137 October, [facility] [id number] [place] [address] 64637- 4581 Sep, Type 2 diabetes mellitus with unspecified complications E11.8 ; Essential hypertension I10 ; COPD (chronic obstructive pulmonary disease ) J44.9 and Hospital discharge follow-up Z09 [facility] [id number] [place] [address] 08103- 6333 Sep, [id number] [place] [address] 47603- 9404 Sep, Dyspnea R06.00 ; Other chronic pain G89.29 ; Dysuria R30.0 ; Diaphoresis R61 ; Jaundice R17 ; COPD (chronic obstructive pulmonary disease) J44.9 ; Type 2 diabetes mellitus with unspecified complications E11.8 ; Excessive daytime sleepiness G47.19 and Oliguria R34 [address] [place] [address] 19162- 3288 Sep, [address] [place] [address] 02606- 6841 Sep, Essential hypertension I10 ; Anxiety associated with depression F41.8 ; Mixed hyperlipidemia E78.2 ; Dyspnea R06.00 ; Shortness of breath R06.02 and Chest pain, unspecified R07.9 [address] [place] [address] 05286- 8896 Sep, Chest pain R07.9 ; Hyperlipemia E78.5 ; Type 2 diabetes mellitus with unspecified complications E11.8 ; Essential hypertension I10 ; Other chronic pain G89.29 ; Anxiety associated with depression F41.8 ; COPD ( chronic obstructive pulmonary disease) J44.9 ; Low vitamin D level E55.9 ; Tobacco abuse Z72.0 ; Hypertriglyceridemia E78.1 and Abnormal laboratory test R89.9 [facility] [id number] [place] [address] 59082- 3936 Aug, Pneumonia J18.9 ; Hypertriglyceridemia E78.1 ; COPD ( chronic obstructive pulmonary disease) J44.9 and Hyperlipidemia E78.5 [id number] [place] [address] 69749- 1116 Aug, Shortness of breath R06.02 ; Anxiety associated with depression F41.8 and Chest pain, unspecified R07.9 [id number] [place] [address] 13537- 5088 Jul, [address] 89858- 2662 Jun, Anxiety associated with depression F41.8 ; [...] unspecified type R11.2 and Tobacco abuse Z72.0 [facility] [id number] [place] [address] 31584- 2341 May, Hyperlipemia E78.5 [address] [id number] [place] [address] 05696- 0100 May, [facility] [place] [id number] [place] [address] 29086- 4160 May, Type 2 diabetes mellitus with unspecified complications E11.8 [id number] [place] [address] 28390- 3576 May, [address] 60174- 5656 May, Anxiety associated with depression F41.8 ; Type 2 diabetes mellitus with unspecified complications E11.8 ; Essential hypertension I10 ; Peripheral neuropathy G62.9 ; Low back pain M54.5 ; Other chronic pain G89.29 ; GERD (gastroesophageal reflux disease) K21.9 ; Insomnia G47.00 ; COPD (chronic obstructive pulmonary disease) J44.9 ; URI (upper respiratory infection) J06.9 and Depression F32.[address] 35201- 1147 May, Low back pain M54.5 ; Anxiety about health F41.8 ; Generalized anxiety disorder F41.1 and Acute stress reaction F43.[address] 81898- 6247 May, [id number] [place] [address] 01772- 7592 Apr, Diabetes E11.9 ; Type 2 diabetes mellitus with unspecified complications E11.8 ; Essential hypertension I10 ; Peripheral neuropathy G62.9 ; Low back pain M54.5 ; Other chronic pain G89.29 ; GERD (gastroesophageal reflux disease) K21.9 ; Anxiety associated with depression F41.8 ; Muscle spasm of calf M62.831 ; Insomnia G47.00 and COPD (chronic obstructive pulmonary disease) J44.9 [address] [place] [address] 48383- 9285 May, [address] 79150- 4132 May, IMMUNIZATIONS No Known Immunizations SOCIAL HISTORY Never Assessed REASON FOR VISIT Refill request PLAN OF CARE VITAL SIGNS MEDICATIONS Medication Instructions Dosage Frequency Start Date End Date Duration Status Mupirocin 2 % apply thin layer inside nare 12h 28 Nov, 2017 Active RESULTS No Results PROCEDURES No [...]
--- OUTSIDE RECORDS SUMMARY | 2018-02-19 17:20 | XMS REPORT ---
Author Author KATIE JEFFRIES Organization [facility] Address [address] [place] [address] Care Team Providers Care Valuation Consultant Name Role Phone KATIE JEFFRIES Unavailable PROBLEMS Type Condition ICD9-CM Code SGH47-ZH Code Onset Dates Condition Status SNOMED Code Problem Other chronic pain G89.29 Active 14874877 Problem Insomnia G47.00 Active 558269525 Problem Type 2 diabetes mellitus with unspecified complications E11.8 Active 97268472 Problem Constipation by delayed colonic transit K59.01 Active 45580945 Problem Chronic kidney disease (CKD) stage G3b/A1, moderately decreased glomerular filtration rate (GFR) between 30-44 mL/min/1.73 square meter and albuminuria creatinine ratio less than 30 mg/g N18.3 Active 458356050 Problem Mixed hyperlipidemia E78.2 Active 306316835 Problem Controlled substance agreement signed Z79.899 Active 622899029 Problem 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 Active 67893239 Problem Vitamin D deficiency E55.9 Active 58282766 Problem Peripheral neuropathy G62.9 Active 20367512 Problem Essential hypertension I10 Active 76075397 Problem Osteoarthritis of acromioclavicular joint M19.019 Active 908488693 Problem COPD (chronic obstructive pulmonary disease) J44.9 Active 90590841 Problem Anxiety associated with depression F41.8 Active 639935888 Problem GERD (gastroesophageal reflux disease) K21.9 Active 913735176 ALLERGIES No Information ENCOUNTERS Encounter Location Date Diagnosis [facility] [id number] [address] Jan, [facility] [address], [place] [address] Jan, Type 2 diabetes mellitus with unspecified complications E11.8 [facility] [id number], [place] [address] Jan, [facility] [address], [place] [address] Jan, Other chronic pain G89.29 and Anxiety associated with depression F41.8 [facility] [id number] [address] Jan, [facility] [id number] [place] [address] 67313- 9084 Dec, [facility] [id number] [place] [address] 35440- 3605 Dec, Type 2 diabetes mellitus with unspecified [...] and 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 [facility] [id number] [place] [address] 75419- 8905 Dec, [facility] [id number] [place] [address] 50343- 0533 Dec, Type 2 diabetes mellitus with unspecified complications E11.8 [facility] [address], [place] [address] Dec, [facility] [id number] [place] [address] 06386- 2144 Dec, Type 2 diabetes mellitus with unspecified complications E11.8 [facility] [id number] [place] [address] 54514- 7493 Dec, Type 2 diabetes mellitus with unspecified complications E11.8 [facility] [id number] [address] 9[address] Dec, [facility] [id number] [place] [address] 9797 Dec, Type 2 diabetes mellitus with unspecified complications E11.8 [facility] [address], [place] [address] 03[address] Dec, [facility] [address], [place] [address]- 9368 Dec, [facility] [id number] [place] [address] 88350- 8198 Dec, [facility] [address], [place] [address]- 4746 Dec, [facility] [id number] [place] [address] 35168- 3846 Dec, [facility] [id number] [address] 53[address] Dec, Other chronic pain G89.29 and Anxiety associated with depression F41.8 [facility] [address], [place] [address]- 7583 Dec, Type 2 diabetes mellitus with unspecified complications E11.8 [facility] [address], [place] [address] 0712 Nov, [facility] [address], [place] [address]- 7078 Nov, [facility] [address], [place] [address]- 0777 Nov, [facility] [address], [place] [address]- 6590 Nov, [facility] [id number] [address] 1620 Nov, Type 2 diabetes mellitus with unspecified complications E11.8 [facility] [address], [place] [address]- 4610 Nov, [facility] [address], [place] [address]- 6289 Nov, Type 2 diabetes mellitus with unspecified complications E11.8 [facility] [address], [place] [address]- 8450 11 Nov, 2017 Other chronic pain G89.29 and Anxiety associated with depression F41.8 [facility] [address], [place] [address]- 5545 08 Nov, 2017 Chronic renal insufficiency N18.9 [facility] [id number] [address] 56[address] 07 Nov, 2017 Other chronic pain G89.29 [facility] [id number] [address] 9887 Nov, Type 2 diabetes mellitus with unspecified complications E11.8 [facility] [address], [place] [address]- 5145 October, [facility] [address], [place] [address]- 1483 October, [facility] [address], [place] [address]- 4706 October, Type 2 diabetes mellitus with unspecified complications E11.8 [facility] [address], [place] [address]- 5614 October, [facility] [address], [place] [address]- 2708 October, [facility] [address], [place] [address]- 9791 October, Type 2 diabetes mellitus with unspecified complications E11.8 [facility] [address], [place] [address]- 9169 October, [facility] [address], [place] [address]- 2761 October, [facility] [address], [place] [address]- 8419 October, Type 2 diabetes mellitus with unspecified complications E11.8 [facility] [id number] [place] [address] 45333- 4205 October, Type 2 diabetes mellitus with unspecified complications E11.8 ; Essential hypertension I10 ; Chronic renal insufficiency N18.9 ; BMI 40.0-44.9, adult Z68.41 ; Other chronic pain G89.29 ; Anxiety associated with depression F41.8 and Right medial knee pain M25.561 [facility] [address] [address]- 8[address] October, GERD (gastroesophageal reflux disease) K21.9 and Anxiety associated with depression F41.8 [facility] [address] 72832- 8727 October, Anxiety associated with depression F41.8 [facility] [address] [address]- 7948 Sep, [facility] [address] 25459- 4671 Sep, GERD (gastroesophageal reflux disease) K21.9 and Anxiety associated with depression F41.8 [facility] [address] 39401- 7840 Aug, [facility] [id number] [place] [address] 51809- 3813 Aug, [facility] [id number] [place] [address] 22011 -5378 Aug, Acute recurrent maxillary sinusitis J01.01 [facility] [id number] [place] [address] 80414- 8735 Aug, [facility] [address] 80897- 4138 Aug, GERD (gastroesophageal reflux disease) K21.9 and Other chronic pain G89.29 [facility] [place] [address] 32937- 3056 Aug, [facility] [id number], [place] [address] Aug, [facility] [id number] [place] [address] 27921- 0491 Aug, Controlled substance agreement signed Z79.899 ; [...] and Enlarged lymph nodes in armpit R59.0 [facility] [id number] [place] [address] 50800- 2523 Aug, Anxiety associated with depression F41.8 and GERD ( gastroesophageal reflux disease) K21.9 [facility] [id number] [place] [address] 12716- 2892 Jul, Controlled substance agreement signed Z79.899 [facility] [id number] [place] [address] 89889- 0024 Jun, Anxiety associated with depression F41.8 and GERD ( gastroesophageal reflux disease) K21.9 [facility] [id number] [place] [address] 86507- 3028 May, Anxiety associated with depression F41.8 and GERD ( gastroesophageal reflux disease) K21.9 [facility] [id number] [place] [address] 25466- 7564 Apr, Mixed hyperlipidemia E78.2 [facility] [id number] [place] [address] 75888- 2721 Apr, Anxiety associated with depression F41.8 and GERD ( gastroesophageal reflux disease) K21.9 [facility] [id number] [place] [address] 50381- 3190 Apr, [facility] [place] [address], [place] [address]- 3284 Apr, Type 2 diabetes mellitus with unspecified complications E11.8 [facility] [address], [place] [address]- 4330 Apr, [facility] [place] [id number] [place] [address] 12974- 6219 Apr, Type 2 diabetes mellitus with unspecified complications E11.8 [facility] [id number] [place] [address] 86364- 9787 Apr, [facility] [id number] [place] [address] 79294- 4002 Mar, GERD (gastroesophageal reflux disease) K21.9 and Anxiety associated with depression F41.8 [facility] [id number] [place] [address] 25200- 2005 Mar, 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 [facility] [id number] [place] [address] 62791- 7857 Mar, Essential hypertension I10 ; Anxiety associated with depression F41.8 ; COPD (chronic obstructive pulmonary disease) J44.9 ; Mixed hyperlipidemia E78.2 ; Vitamin D deficiency E55.9 ; GERD (gastroesophageal reflux disease) K21.9 ; Type 2 diabetes mellitus with unspecified complications E11.8 ; Other chronic pain G89.29 and Chronic renal insufficiency N18.9 [facility] [place] [address] [place] [address] 90159- 4107 Mar, Chronic renal insufficiency N18.9 [facility] [id number] [place] [address] 03564- 1938 Feb, GERD (gastroesophageal reflux disease) K21.9 and Type 2 diabetes mellitus with unspecified complications E11.8 [facility] [place] [address], [place] [address]- 9491 Feb, Anxiety associated with depression F41.8 and Tear of left supraspinatus tendon, subsequent encounter S46.812D [facility] [address], [place] [address]- 2266 Jan, Pre-operative examination for internal medicine Z01.818 [facility] [id number] [place] [address] 76922- 7866 Jan, Anxiety associated with depression F41.8 and Left anterior shoulder pain M25.512 [facility] [id number] [place] [address] 72131- 3762 Jan, [facility] [id number] [place] [address] 02582- 5035 Jan, [facility] [id number] [place] [address] 68648- 6819 Jan, Type 2 diabetes mellitus with unspecified complications E11.8 ; Essential hypertension I10 ; Other chronic pain G89.29 ; GERD ( gastroesophageal reflux disease) K21.9 ; Anxiety associated with depression F41.8 ; Insomnia G47.00 ; Hypertriglyceridemia E78.1 ; Left anterior shoulder pain M25.512 and Tobacco abuse Z72.0 [facility] [id number] [place] [address] 36964- 0495 Dec, Anxiety associated with depression F41.8 and Tear of left supraspinatus tendon, subsequent encounter S46.812D [place] [address] [place] [address] 57389- 9875 Nov, [facility] [id number] [place] [address] 83778- 8415 Nov, Anxiety associated with depression F41.8 and Tear of left supraspinatus tendon, subsequent encounter S46.812D [facility] [id number] [place] [address] 48462- 2583 05 Nov, 2016 Abnormal lung sounds R09.89 and COPD (chronic obstructive pulmonary disease) with acute bronchitis J44.0 [facility] [id number] [place] [address] 34861- 1460 Nov, [facility] [id number] [place] [address] 97988- 0703 October, COPD (chronic obstructive pulmonary disease) with acute bronchitis J44.0 ; Abnormal lung sounds R09.89 and Medication refill Z76.0 [facility] [id number] [place] [address] 00764- 3148 October, Anxiety associated with depression F41.8 [facility] [address] 01540- 9193 Sep, Nausea and vomiting, unspecified intactability, vomiting of unspecified type R11.2 [facility] [address] 81338- 6061 Sep, COPD (chronic obstructive pulmonary disease) J44.9 ; Tobacco abuse Z72.0 ; Tear of left supraspinatus tendon, subsequent encounter S46.812D and Type 2 diabetes mellitus with unspecified complications E11.8 [facility] [id number] [place] [address] 24197- 3746 Sep, [facility] [address] 43747- 4891 Aug, Left anterior shoulder pain M25.512 [facility] [id number] [place] [address] 55544- 7702 Aug, Left anterior shoulder pain M25.512 and Low back pain M54.5 [facility] [id number] [place] [address] 36922- 8384 Aug, [facility] [id number] [place] [address] 29030- 8984 Aug, [facility] [address] 14096- 9183 Aug, [facility] [id number] [place] [address] 33532- 2900 Aug, [facility] [place] [address] [place] [address]- 5497 Aug, Type 2 diabetes mellitus with unspecified complications E11.8 [facility] [address] 19040- 8567 Aug, Type 2 diabetes mellitus with unspecified [...] E55.9 and GERD (gastroesophageal reflux disease) K21.9 [facility] [place] [address] 92700- 5651 Aug, [facility] [place] [address] 74049- 7877 May, [facility] [place] [address] 90881- 9547 Apr, [facility] [place] [address] 25941- 5069 Apr, Type 2 diabetes mellitus with unspecified [...] S49.92XA and Anxiety associated with depression F41.8 [place] [address] 74135- 9978 Apr, [place] [address] 55041- 2322 Apr, [place] [address] 69860- 0542 Apr, [facility] [id number], [place] [address]- 4712 Mar, [facility] [address], [place] [address]- 9694 Feb, [facility] [address], [place] [address]- 1955 Feb, [facility] [address], [place] [address]- 6353 Jan, [facility] [address], [place] [address]- 4859 Jan, [facility] [address], [place] [address]- 5904 Jan, Type 2 diabetes mellitus with unspecified complications E11.8 ; Essential hypertension I10 and Vitamin D deficiency E55.9 [facility] [address], [place] [address]- 6459 Dec, Type 2 diabetes mellitus with unspecified complications E11.8 ; Essential hypertension I10 ; Other chronic pain G89.29 ; Anxiety associated with depression F41.8 ; Bronchitis J40 ; Vitamin D deficiency E55.9 and COPD (chronic obstructive pulmonary disease) J44.9 [facility] [address], [place] [address]- 0419 Nov, [facility] [address], [place] [address]- 5020 October, [facility] [address], [place] [address]- 8458 October, [facility] [address], [place] [address]- 8072 October, [facility] [address], [place] [address]- 0831 October, Dysuria R30.0 ; Bronchitis J40 ; Anxiety associated with depression F41.8 and Type 2 diabetes mellitus with unspecified complications E11.8 [facility] [address], [place] [address]- 0069 October, Chronic renal insufficiency N18.9 ; Elevated white blood cell count D72.829 and Frequent UTI N39.0 [facility] [id number] [place] [address] 76945- 7122 October, Chronic renal insufficiency N18.9 ; Elevated white blood cell count D72.829 and Frequent UTI N39.0 [facility] [id number] [place] [address] 26463- 5702 October, [facility] [id number] [place] [address] 23563- 9897 Sep, Type 2 diabetes mellitus with unspecified complications E11.8 ; Essential hypertension I10 ; COPD (chronic obstructive pulmonary disease ) J44.9 and Hospital discharge follow-up Z09 [facility] [id number] [place] [address] 68915- 2866 Sep, [address] [id number] [place] [address] 41848- 5132 Sep, Dyspnea R06.00 ; Other chronic pain G89.29 ; Dysuria R30.0 ; Diaphoresis R61 ; Jaundice R17 ; COPD (chronic obstructive pulmonary disease) J44.9 ; Type 2 diabetes mellitus with unspecified complications E11.8 ; Excessive daytime sleepiness G47.19 and Oliguria R34 [address] [place] [address] 01756- 2329 Sep, [address] [place] [address] 94094- 9123 Sep, Essential hypertension I10 ; Anxiety associated with depression F41.8 ; Mixed hyperlipidemia E78.2 ; Dyspnea R06.00 ; Shortness of breath R06.02 and Chest pain, unspecified R07.9 [address] [place] [address] 33612- 4340 Sep, Chest pain R07.9 ; Hyperlipemia E78.5 ; Type 2 diabetes mellitus with unspecified complications E11.8 ; Essential hypertension I10 ; Other chronic pain G89.29 ; Anxiety associated with depression F41.8 ; COPD ( chronic obstructive pulmonary disease) J44.9 ; Low vitamin D level E55.9 ; Tobacco abuse Z72.0 ; Hypertriglyceridemia E78.1 and Abnormal laboratory test R89.9 [facility] [id number] [place] [address] 15704- 5848 Aug, Pneumonia J18.9 ; Hypertriglyceridemia E78.1 ; COPD ( chronic obstructive pulmonary disease) J44.9 and Hyperlipidemia E78.5 [address] [id number] [place] [address] 32542- 3349 Aug, Shortness of breath R06.02 ; Anxiety associated with depression F41.8 and Chest pain, unspecified R07.9 [place] [id number] [place] [address] 82325- 3438 Jul, [address] 92271- 7830 Jun, Anxiety associated with depression F41.8 ; [...] unspecified type R11.2 and Tobacco abuse Z72.0 [facility] [id number] [place] [address] 68468- 4942 May, Hyperlipemia E78.5 [place] [id number] [place] [address] 16278- 1707 May, [facility] [id number] [place] [address] 71147- 4682 May, Type 2 diabetes mellitus with unspecified complications E11.8 [place] [id number] [place] [address] 25604- 7946 May, [address] 95023- 8452 May, Anxiety associated with depression F41.8 ; Type 2 diabetes mellitus with unspecified complications E11.8 ; Essential hypertension I10 ; Peripheral neuropathy G62.9 ; Low back pain M54.5 ; Other chronic pain G89.29 ; GERD (gastroesophageal reflux disease) K21.9 ; Insomnia G47.00 ; COPD (chronic obstructive pulmonary disease) J44.9 ; URI (upper respiratory infection) J06.9 and Depression F32.[address] 92263- 5881 May, Low back pain M54.5 ; Anxiety about health F41.8 ; Generalized anxiety disorder F41.1 and Acute stress reaction F43.[address] 12603- 2984 May, [place] [id number] [place] [address] 30768- 0062 Apr, Diabetes E11.9 ; Type 2 diabetes mellitus with unspecified complications E11.8 ; Essential hypertension I10 ; Peripheral neuropathy G62.9 ; Low back pain M54.5 ; Other chronic pain G89.29 ; GERD (gastroesophageal reflux disease) K21.9 ; Anxiety associated with depression F41.8 ; Muscle spasm of calf M62.831 ; Insomnia G47.00 and COPD (chronic obstructive pulmonary disease) J44.9 [address] [place] [address] 76584- 2942 May, [address] 56630- 6480 May, IMMUNIZATIONS No Known Immunizations SOCIAL HISTORY [...]
--- OUTSIDE RECORDS SUMMARY | 2018-02-19 17:20 | XMS REPORT ---
Author Author KATIE JEFFRIES Organization [facility] Address [address] [place] [address] Care Team Providers Care Pen Rider Name Role Phone KATIE JEFFRIES Unavailable PROBLEMS Type Condition ICD9-CM Code IBO76-BD Code Onset Dates Condition Status SNOMED Code Problem Other chronic pain G89.29 Active 85703134 Problem Insomnia G47.00 Active 424905045 Problem Type 2 diabetes mellitus with unspecified complications E11.8 Active 84142557 Problem Constipation by delayed colonic transit K59.01 Active 97100737 Problem Chronic kidney disease (CKD) stage G3b/A1, moderately decreased glomerular filtration rate (GFR) between 30-44 mL/min/1.73 square meter and albuminuria creatinine ratio less than 30 mg/g N18.3 Active 670526659 Problem Mixed hyperlipidemia E78.2 Active 745092779 Problem Controlled substance agreement signed Z79.899 Active 602172612 Problem 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 Active 33656938 Problem Vitamin D deficiency E55.9 Active 25900209 Problem Peripheral neuropathy G62.9 Active 49280092 Problem Essential hypertension I10 Active 46891469 Problem Osteoarthritis of acromioclavicular joint M19.019 Active 112815548 Problem COPD (chronic obstructive pulmonary disease) J44.9 Active 45518649 Problem Anxiety associated with depression F41.8 Active 747381815 Problem GERD (gastroesophageal reflux disease) K21.9 Active 386967075 ALLERGIES No Information ENCOUNTERS Encounter Location Date Diagnosis [facility] [id number], [place] [address] Jan, [facility] [address], [place] [address] Jan, Type 2 diabetes mellitus with unspecified complications E11.8 [facility] [id number], [place] [address] 77[address] Jan, [facility] [address], [place] [address]41 Jan, Other chronic pain G89.29 and Anxiety associated with depression F41.8 [facility] [id number] [address] Jan, [facility] [id number] [place] [address] 45227- 1929 Dec, [facility] [facility] [id number] [place] [address] 92376- 7430 Dec, Type 2 diabetes mellitus with unspecified [...] loss of right eye H54.61 [facility] [id number] [place] [address] 82310- 1889 Dec, [facility] [id number] [place] [address] 64978- 4730 Dec, Type 2 diabetes mellitus with unspecified complications E11.8 [facility] [facility] [address], [place] [address] 3668 Dec, [facility] [id number] [place] [address] 87584- 3333 Dec, Type 2 diabetes mellitus with unspecified complications E11.8 [facility] [id number] [place] [address] 19367- 5196 Dec, Type 2 diabetes mellitus with unspecified complications E11.8 [facility] [id number] [address] 0638 Dec, [facility] [id number] [address] 1501 Dec, Type 2 diabetes mellitus with unspecified complications E11.8 [facility] [address], [place] [address] 0501 Dec, [facility] [address], [place] [address] 8010 Dec, [facility] [id number] [place] [address] 74758- 4374 Dec, [facility] [address], [place] [address] 0438 Dec, [facility] [id number] [place] [address] 59723- 0014 Dec, [facility] [id number], [place] [address] 9664 Dec, Other chronic pain G89.29 and Anxiety associated with depression F41.8 [facility] [address], [place] [address] 9601 Dec, Type 2 diabetes mellitus with unspecified complications E11.8 [facility] [address], [place] [address] 1227 Nov, [facility] [address], [place] [address] 3453 Nov, [facility] [address], [place] [address] 0598 Nov, [facility] [address], [place] [address] 1967 Nov, [facility] [id number], [place] [address] 1274 Nov, Type 2 diabetes mellitus with unspecified complications E11.8 [facility] [address], [place] [address] 8202 Nov, [facility] [address], [place] [address] 5634 Nov, Type 2 diabetes mellitus with unspecified complications E11.8 [facility] [address], [place] [address]- 2446 11 Nov, 2017 Other chronic pain G89.29 and Anxiety associated with depression F41.8 [facility] [address], [place] [address] 3759 08 Nov, 2017 Chronic renal insufficiency N18.9 [facility] [id number] [address] 3[address] 07 Nov, 2017 Other chronic pain G89.29 [facility] [id number] [address] 3207 Nov, Type 2 diabetes mellitus with unspecified complications E11.8 [facility] [address], [place] [address] 3471 October, [facility] [address], [place] [address]- 5022 October, [facility] [address], [place] [address]- 5123 October, Type 2 diabetes mellitus with unspecified complications E11.8 [facility] [address], [place] [address]- 9290 October, [facility] [address], [place] [address]- 2603 October, [facility] [address], [place] [address]- 4441 October, Type 2 diabetes mellitus with unspecified complications E11.8 [facility] [address], [place] [address]- 7528 October, [facility] [address], [place] [address]- 2967 October, [facility] [address], [place] [address]- 2073 October, Type 2 diabetes mellitus with unspecified complications E11.8 [facility] [id number] [place] [address] 10156- 9045 October, Type 2 diabetes mellitus with unspecified complications E11.8 ; Essential hypertension I10 ; Chronic renal insufficiency N18.9 ; BMI 40.0-44.9, adult Z68.41 ; Other chronic pain G89.29 ; Anxiety associated with depression F41.8 and Right medial knee pain M25.561 [place] [address] [address]- 5887 October, GERD (gastroesophageal reflux disease) K21.9 and Anxiety associated with depression F41.8 [facility] [address] 17261- 0030 October, Anxiety associated with depression F41.8 [facility] [address] 16863- 8852 Sep, [place] [address] 12631- 5594 Sep, GERD (gastroesophageal reflux disease) K21.9 and Anxiety associated with depression F41.8 [facility] [address] 55247- 9177 Aug, [facility] [facility] [id number] [place] [address] 83643- 9216 Aug, [facility] [id number] [place] [address] 61217 -7674 Aug, Acute recurrent maxillary sinusitis J01.01 [facility] [facility] [id number] [place] [address] 08333- 4908 Aug, [place] [address] 13324- 0603 Aug, GERD (gastroesophageal reflux disease) K21.9 and Other chronic pain G89.29 [place] [address] 92495- 4101 Aug, [facility] [address], [place] [address] Aug, [facility] [id number] [place] [address] 64751- 8862 Aug, Controlled substance agreement signed Z79.899 ; [...] Enlarged lymph nodes in armpit R59.0 [facility] [id number] [place] [address] 52574- 6861 Aug, Anxiety associated with depression F41.8 and GERD ( gastroesophageal reflux disease) K21.9 [facility] [id number] [place] [address] 41507- 0105 Jul, Controlled substance agreement signed Z79.899 [facility] [id number] [place] [address] 20049- 4018 Jun, Anxiety associated with depression F41.8 and GERD ( gastroesophageal reflux disease) K21.9 [facility] [id number] [place] [address] 22611- 4912 May, Anxiety associated with depression F41.8 and GERD ( gastroesophageal reflux disease) K21.9 [facility] [address] [place] [address] 16232- 0928 Apr, Mixed hyperlipidemia E78.2 [facility] [id number] [place] [address] 77609- 0896 Apr, Anxiety associated with depression F41.8 and GERD ( gastroesophageal reflux disease) K21.9 [facility] [id number] [place] [address] 82321- 9400 Apr, [place] [address], [place] [address]- 6555 Apr, Type 2 diabetes mellitus with unspecified complications E11.8 [facility] [address], [place] [address]- 3227 Apr, [facility] [address] [place] [address] 50192- 6676 Apr, Type 2 diabetes mellitus with unspecified complications E11.8 [facility] [id number] [place] [address] 49202- 7850 Apr, [facility] [facility] [id number] [place] [address] 38126- 9485 Mar, GERD (gastroesophageal reflux disease) K21.9 and Anxiety associated with depression F41.8 [facility] [id number] [place] [address] 59905- 8068 Mar, 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 [facility] [id number] [place] [address] 58609- 0990 Mar, Essential hypertension I10 ; Anxiety associated with depression F41.8 ; COPD (chronic obstructive pulmonary disease) J44.9 ; Mixed hyperlipidemia E78.2 ; Vitamin D deficiency E55.9 ; GERD (gastroesophageal reflux disease) K21.9 ; Type 2 diabetes mellitus with unspecified complications E11.8 ; Other chronic pain G89.29 and Chronic renal insufficiency N18.9 [place] [address] [place] [address] 94515- 0962 Mar, Chronic renal insufficiency N18.9 [facility] [id number] [place] [address] 05131- 7749 Feb, GERD (gastroesophageal reflux disease) K21.9 and Type 2 diabetes mellitus with unspecified complications E11.8 [address] [address], [place] [address]- 6620 Feb, Anxiety associated with depression F41.8 and Tear of left supraspinatus tendon, subsequent encounter S46.812D [address] [place], [place] [address]- 1604 Jan, Pre-operative examination for internal medicine Z01.818 [facility] [id number] [place] [address] 78365- 1832 Jan, Anxiety associated with depression F41.8 and Left anterior shoulder pain M25.512 [facility] [id number] [place] [address] 90326- 1454 Jan, [facility] [facility] [id number] [place] [address] 19450- 0609 Jan, [facility] [facility] [id number] [place] [address] 72019- 1876 Jan, Type 2 diabetes mellitus with unspecified complications E11.8 ; Essential hypertension I10 ; Other chronic pain G89.29 ; GERD ( gastroesophageal reflux disease) K21.9 ; Anxiety associated with depression F41.8 ; Insomnia G47.00 ; Hypertriglyceridemia E78.1 ; Left anterior shoulder pain M25.512 and Tobacco abuse Z72.0 [facility] [id number] [place] [address] 95296- 2799 Dec, Anxiety associated with depression F41.8 and Tear of left supraspinatus tendon, subsequent encounter S46.812D [place] [address] [place] [address] 61084- 2242 Nov, [facility] [facility] [id number] [place] [address] 74371- 4410 Nov, Anxiety associated with depression F41.8 and Tear of left supraspinatus tendon, subsequent encounter S46.812D [facility] [facility] [id number] [place] [address] 19634- 2475 05 Nov, 2016 Abnormal lung sounds R09.89 and COPD (chronic obstructive pulmonary disease) with acute bronchitis J44.0 [facility] [id number] [place] [address] 14934- 7979 Nov, [facility] [id number] [place] [address] 49270- 3976 October, COPD (chronic obstructive pulmonary disease) with acute bronchitis J44.0 ; Abnormal lung sounds R09.89 and Medication refill Z76.0 [facility] [facility] [id number] [place] [address] 43969- 0028 October, Anxiety associated with depression F41.8 [place] [address] 59061- 2419 Sep, Nausea and vomiting, unspecified intactability, vomiting of unspecified type R11.2 [place] [address] 39705- 6234 Sep, COPD (chronic obstructive pulmonary disease) J44.9 ; Tobacco abuse Z72.0 ; Tear of left supraspinatus tendon, subsequent encounter S46.812D and Type 2 diabetes mellitus with unspecified complications E11.8 [facility] [facility] [id number] [place] [address] 01141- 5515 Sep, [place] [address] 26122- 7243 Aug, Left anterior shoulder pain M25.512 [facility] [id number] [place] [address] 60800- 6005 Aug, Left anterior shoulder pain M25.512 and Low back pain M54.5 [facility] [facility] [id number] [place] [address] 40868- 5882 Aug, [facility] [id number] [place] [address] 23647- 2960 Aug, [place] [address] 44264- 1065 Aug, [facility] [id number] [place] [address] 25232- 7513 Aug, [place] [address] [place] [address]- 3037 Aug, Type 2 diabetes mellitus with unspecified complications E11.8 [place] [address] 59935- 8031 Aug, Type 2 diabetes mellitus with unspecified [...] GERD (gastroesophageal reflux disease) K21.9 [place] [address] 18589- 3735 Aug, [place] [address] 63601- 5255 May, [place] [address] 14009- 6060 Apr, [place] [address] 11049- 1429 Apr, Type 2 diabetes mellitus with unspecified [...] Anxiety associated with depression F41.8 [place] [address] 30009- 7036 Apr, [place] [address] 23489- 9256 Apr, [place] [address] 59507- 3449 Apr, [facility] [id number], [place] [address]- 3907 Mar, [facility] [address], [place] [address]- 2876 Feb, [facility] [address], [place] [address]- 6763 Feb, [facility] [address], [place] [address]- 6427 Jan, [facility] [address], [place] [address]- 3295 Jan, [facility] [address], [place] [address]- 1642 Jan, Type 2 diabetes mellitus with unspecified complications E11.8 ; Essential hypertension I10 and Vitamin D deficiency E55.9 [facility] [address], [place] [address]- 2358 Dec, Type 2 diabetes mellitus with unspecified complications E11.8 ; Essential hypertension I10 ; Other chronic pain G89.29 ; Anxiety associated with depression F41.8 ; Bronchitis J40 ; Vitamin D deficiency E55.9 and COPD (chronic obstructive pulmonary disease) J44.9 [facility] [address], [place] [address]- 9034 Nov, [facility] [address], [place] [address]- 5285 October, [facility] [address], [place] [address]- 9389 October, [facility] [address], [place] [address]- 9328 October, [facility] [address], [place] [address]- 6222 October, Dysuria R30.0 ; Bronchitis J40 ; Anxiety associated with depression F41.8 and Type 2 diabetes mellitus with unspecified complications E11.8 [place] [address], [place] [address]- 1891 October, Chronic renal insufficiency N18.9 ; Elevated white blood cell count D72.829 and Frequent UTI N39.0 [place] [address] [place] [address] 67066- 0135 October, Chronic renal insufficiency N18.9 ; Elevated white blood cell count D72.829 and Frequent UTI N39.0 [place] [id number] [place] [address] 03194- 7631 October, [facility] [id number] [place] [address] 85536- 1253 Sep, Type 2 diabetes mellitus with unspecified complications E11.8 ; Essential hypertension I10 ; COPD (chronic obstructive pulmonary disease ) J44.9 and Hospital discharge follow-up Z09 [place] [id number] [place] [address] 98964- 6240 Sep, [address] [place] [address] 50582- 7096 Sep, Dyspnea R06.00 ; Other chronic pain G89.29 ; Dysuria R30.0 ; Diaphoresis R61 ; Jaundice R17 ; COPD (chronic obstructive pulmonary disease) J44.9 ; Type 2 diabetes mellitus with unspecified complications E11.8 ; Excessive daytime sleepiness G47.19 and Oliguria R34 [address] [place] [address] 93988- 9132 Sep, [address] [place] [address] 05053- 4397 Sep, Essential hypertension I10 ; Anxiety associated with depression F41.8 ; Mixed hyperlipidemia E78.2 ; Dyspnea R06.00 ; Shortness of breath R06.02 and Chest pain, unspecified R07.[address] [place] [address] 34255- 5436 Sep, Chest pain R07.9 ; Hyperlipemia E78.5 ; Type 2 diabetes mellitus with unspecified complications E11.8 ; Essential hypertension I10 ; Other chronic pain G89.29 ; Anxiety associated with depression F41.8 ; COPD ( chronic obstructive pulmonary disease) J44.9 ; Low vitamin D level E55.9 ; Tobacco abuse Z72.0 ; Hypertriglyceridemia E78.1 and Abnormal laboratory test R89.9 [place] [facility] [id number] [place] [address] 61321- 3286 Aug, Pneumonia J18.9 ; Hypertriglyceridemia E78.1 ; COPD ( chronic obstructive pulmonary disease) J44.9 and Hyperlipidemia E78.5 [address] [place] [address] 10835- 4912 Aug, Shortness of breath R06.02 ; Anxiety associated with depression F41.8 and Chest pain, unspecified R07.9 [address] [address] [address] [place] [address] 28342- 4940 Jul, [address] 40878- 4427 Jun, Anxiety associated with depression F41.8 ; [...] unspecified type R11.2 and Tobacco abuse Z72.0 [place] [id number] [place] [address] 42308- 0069 May, Hyperlipemia E78.5 [address] [address] [place] [address] 17018- 7368 May, [place] [id number] [place] [address] 01255- 6027 May, Type 2 diabetes mellitus with unspecified complications E11.8 [address] [place] [address] 35514- 6176 May, [address] [address] [place] [address] 65158- 0728 May, Anxiety associated with depression F41.8 ; Type 2 diabetes mellitus with unspecified complications E11.8 ; Essential hypertension I10 ; Peripheral neuropathy G62.9 ; Low back pain M54.5 ; Other chronic pain G89.29 ; GERD (gastroesophageal reflux disease) K21.9 ; Insomnia G47.00 ; COPD (chronic obstructive pulmonary disease) J44.9 ; URI (upper respiratory infection) J06.9 and Depression F32.[address] 50384- 2955 May, Low back pain M54.5 ; Anxiety about health F41.8 ; Generalized anxiety disorder F41.1 and Acute stress reaction F43.[address] 45818- 7115 May, [place] [address] [place] [address] 97394- 5572 Apr, Diabetes E11.9 ; Type 2 diabetes mellitus with unspecified complications E11.8 ; Essential hypertension I10 ; Peripheral neuropathy G62.9 ; Low back pain M54.5 ; Other chronic pain G89.29 ; GERD (gastroesophageal reflux disease) K21.9 ; Anxiety associated with depression F41.8 ; Muscle spasm of calf M62.831 ; Insomnia G47.00 and COPD (chronic obstructive pulmonary disease) J44.[address] [place] [address] 07545- 0894 May, [address] 88136- 4344 May, IMMUNIZATIONS No Known Immunizations SOCIAL HISTORY Never Assessed REASON FOR VISIT Insulin Readings PLAN OF CARE VITAL SIGNS MEDICATIONS Medication Instructions Dosage Frequency Start Date End Date Duration Status Tradjenta 5 mg Orally Once a day 1 tablet 24h Nov, 30 day(s) Active NovoLog Flexpen 100 UNIT/ML 22 units three times with meals October, Active Levemir Flexpen 100 UNIT/ML Subcutaneous 2 times a day 33 units twice a day 12h October, Active RESULTS No Results PROCEDURES No Known [...]
--- OUTSIDE RECORDS SUMMARY | 2018-02-19 17:21 | XMS REPORT ---
Author Author KATIE JEFFRIES Organization [facility] Address [address] [place] [address] Care Team Providers Care Senior Web Services Developer Name Role Phone KATIE JEFFRIES Unavailable PROBLEMS Type Condition ICD9-CM Code RFA54-SF Code Onset Dates Condition Status SNOMED Code Problem Other chronic pain G89.29 Active 03892423 Problem Insomnia G47.00 Active 765566512 Problem Type 2 diabetes mellitus with unspecified complications E11.8 Active 01690677 Problem Constipation by delayed colonic transit K59.01 Active 97546695 Problem Chronic kidney disease (CKD) stage G3b/A1, moderately decreased glomerular filtration rate (GFR) between 30-44 mL/min/1.73 square meter and albuminuria creatinine ratio less than 30 mg/g N18.3 Active 338078460 Problem Mixed hyperlipidemia E78.2 Active 867003275 Problem Controlled substance agreement signed Z79.899 Active 288646563 Problem 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 Active 67518754 Problem Vitamin D deficiency E55.9 Active 14170950 Problem Peripheral neuropathy G62.9 Active 60883046 Problem Essential hypertension I10 Active 65511592 Problem Osteoarthritis of acromioclavicular joint M19.019 Active 668417417 Problem COPD (chronic obstructive pulmonary disease) J44.9 Active 78158710 Problem Anxiety associated with depression F41.8 Active 053216442 Problem GERD (gastroesophageal reflux disease) K21.9 Active 586093750 ALLERGIES No Information ENCOUNTERS Encounter Location Date Diagnosis [facility] [id number] [address] Jan, [facility] [address] [address] Jan, Type 2 diabetes mellitus with unspecified complications E11.8 [facility] [id number] [address] 0[address] Jan, [facility] [address] [address] Jan, Other chronic pain G89.29 and Anxiety associated with depression F41.8 [facility] [id number] [address] 6[address] Jan, [place] [id number] [place] [address] 50923- 3811 Dec, [place] [id number] [place] [address] 87384- 4718 Dec, Type 2 diabetes mellitus with unspecified [...] and 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 [place] [id number] [place] [address] 78013- 8509 Dec, [place] [id number] [place] [address] 32454- 4219 Dec, Type 2 diabetes mellitus with unspecified complications E11.8 [place] [address] [address] 2508 Dec, [place] [id number] [place] [address] 94475- 6466 Dec, Type 2 diabetes mellitus with unspecified complications E11.8 [place] [id number] [place] [address] 89722- 6915 Dec, Type 2 diabetes mellitus with unspecified complications E11.8 [place] [id number] [address] 2552 Dec, [place] [id number] [address] 0886 Dec, Type 2 diabetes mellitus with unspecified complications E11.8 [facility] [address] [address] Dec, [facility] [address] [address] 1909 Dec, [facility] [id number] [place] [address] 71848- 0672 Dec, [facility] [address] [address]- 6794 Dec, [facility] [id number] [place] [address] 47042- 7424 Dec, [facility] [id number] [address] 9070 Dec, Other chronic pain G89.29 and Anxiety associated with depression F41.8 [facility] [address] [address] 3704 Dec, Type 2 diabetes mellitus with unspecified complications E11.8 [facility] [address] [address] 6013 Nov, [facility] [address] [address]- 8440 Nov, [facility] [address] [address]- 6818 Nov, [facility] [address] [address]- 0423 Nov, [facility] [id number] [address] 8273 Nov, Type 2 diabetes mellitus with unspecified complications E11.8 [facility] [address] [address]- 2774 Nov, [facility] [address] [address]- 2187 Nov, Type 2 diabetes mellitus with unspecified complications E11.8 [facility] [address] [address]- 4985 11 Nov, 2017 Other chronic pain G89.29 and Anxiety associated with depression F41.8 [facility] [address] [address] 4252 08 Nov, 2017 Chronic renal insufficiency N18.9 [facility] [id number] [address]- 8390 07 Nov, 2017 Other chronic pain G89.29 [facility] [id number] [address]- 1212 Nov, Type 2 diabetes mellitus with unspecified complications E11.8 [facility] [address] [address] 2170 October, [facility] [address] [address]- 5307 October, [facility] [address] [address]- 9002 October, Type 2 diabetes mellitus with unspecified complications E11.8 [facility] [address] [address]- 3880 October, [facility] [address] [address]- 6699 October, [facility] [address] [address]- 2962 October, Type 2 diabetes mellitus with unspecified complications E11.8 [facility] [address] [address]- 0016 October, [facility] [address] [address]- 3360 October, [facility] [address] [address]- 1922 October, Type 2 diabetes mellitus with unspecified complications E11.8 [place] [id number] [place] [address] 46807- 2606 October, Type 2 diabetes mellitus with unspecified complications E11.8 ; Essential hypertension I10 ; Chronic renal insufficiency N18.9 ; BMI 40.0-44.9, adult Z68.41 ; Other chronic pain G89.29 ; Anxiety associated with depression F41.8 and Right medial knee pain M25.561 [place] [address] [address]- 4429 October, GERD (gastroesophageal reflux disease) K21.9 and Anxiety associated with depression F41.8 [place] [address] 22917- 7060 October, Anxiety associated with depression F41.8 [place] [address] 82[address]- 0445 Sep, [place] [address] 96634- 5604 Sep, GERD (gastroesophageal reflux disease) K21.9 and Anxiety associated with depression F41.8 [place] [address] 15220- 0658 Aug, [place] [id number] [place] [address] 49765- 0257 Aug, [facility] [id number] [place] [address] 00969 -7355 Aug, Acute recurrent maxillary sinusitis J01.01 [place] [id number] [place] [address] 63189- 1270 Aug, [place] [address] 37874- 6769 Aug, GERD (gastroesophageal reflux disease) K21.9 and Other chronic pain G89.29 [place] [address] 36816- 7342 Aug, [facility] [address] [address] Aug, [facility] [id number] [place] [address] 64085- 9230 Aug, Controlled substance agreement signed Z79.899 ; [...] and Enlarged lymph nodes in armpit R59.0 [facility] [id number] [place] [address] 32802- 1342 Aug, Anxiety associated with depression F41.8 and GERD ( gastroesophageal reflux disease) K21.9 [facility] [id number] [place] [address] 34363- 5105 Jul, Controlled substance agreement signed Z79.899 [facility] [id number] [place] [address] 69129- 6388 Jun, Anxiety associated with depression F41.8 and GERD ( gastroesophageal reflux disease) K21.9 [facility] [id number] [place] [address] 19364- 4729 May, Anxiety associated with depression F41.8 and GERD ( gastroesophageal reflux disease) K21.9 [facility] [address] [place] [address] 69547- 1314 Apr, Mixed hyperlipidemia E78.2 [facility] [id number] [place] [address] 71834- 0370 Apr, Anxiety associated with depression F41.8 and GERD ( gastroesophageal reflux disease) K21.9 [facility] [id number] [place] [address] 60319- 6285 Apr, [place] [address] [address]- 6155 Apr, Type 2 diabetes mellitus with unspecified complications E11.8 [place] [address] [address]- 6578 Apr, [place] [address] [place] [address] 02419- 6454 Apr, Type 2 diabetes mellitus with unspecified complications E11.8 [place] [id number] [place] [address] 48263- 7945 Apr, [place] [id number] [place] [address] 92308- 9335 Mar, GERD (gastroesophageal reflux disease) K21.9 and Anxiety associated with depression F41.8 [place] [id number] [place] [address] 70294- 7399 Mar, 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 [place] [id number] [place] [address] 12167- 7267 Mar, Essential hypertension I10 ; Anxiety associated with depression F41.8 ; COPD (chronic obstructive pulmonary disease) J44.9 ; Mixed hyperlipidemia E78.2 ; Vitamin D deficiency E55.9 ; GERD (gastroesophageal reflux disease) K21.9 ; Type 2 diabetes mellitus with unspecified complications E11.8 ; Other chronic pain G89.29 and Chronic renal insufficiency N18.9 [address] [place] [address] [place] [address] 39463- 5555 Mar, Chronic renal insufficiency N18.9 [place] [id number] [place] [address] 29235- 2232 Feb, GERD (gastroesophageal reflux disease) K21.9 and Type 2 diabetes mellitus with unspecified complications E11.8 [place] [address] [address]- 8267 Feb, Anxiety associated with depression F41.8 and Tear of left supraspinatus tendon, subsequent encounter S46.812D [place] [address] [address]- 6094 Jan, Pre-operative examination for internal medicine Z01.818 [place] [id number] [place] [address] 63444- 4399 Jan, Anxiety associated with depression F41.8 and Left anterior shoulder pain M25.512 [place] [id number] [place] [address] 94509- 2675 Jan, [place] [id number] [place] [address] 71495- 4314 Jan, [place] [id number] [place] [address] 67193- 7017 Jan, Type 2 diabetes mellitus with unspecified complications E11.8 ; Essential hypertension I10 ; Other chronic pain G89.29 ; GERD ( gastroesophageal reflux disease) K21.9 ; Anxiety associated with depression F41.8 ; Insomnia G47.00 ; Hypertriglyceridemia E78.1 ; Left anterior shoulder pain M25.512 and Tobacco abuse Z72.0 [place] [id number] [place] [address] 59351- 6006 Dec, Anxiety associated with depression F41.8 and Tear of left supraspinatus tendon, subsequent encounter S46.812D [address] [place] [address] [place] [address] 81795- 9298 Nov, [place] [id number] [place] [address] 20047- 1588 Nov, Anxiety associated with depression F41.8 and Tear of left supraspinatus tendon, subsequent encounter S46.812D [place] [id number] [place] [address] 20029- 8573 05 Nov, 2016 Abnormal lung sounds R09.89 and COPD (chronic obstructive pulmonary disease) with acute bronchitis J44.0 [place] [id number] [place] [address] 91181- 2006 Nov, [place] [id number] [place] [address] 28615- 2927 October, COPD (chronic obstructive pulmonary disease) with acute bronchitis J44.0 ; Abnormal lung sounds R09.89 and Medication refill Z76.0 [place] [id number] [place] [address] 35052- 5359 October, Anxiety associated with depression F41.8 [place] [address] 87214- 4209 Sep, Nausea and vomiting, unspecified intactability, vomiting of unspecified type R11.2 [place] [address] 39741- 6692 Sep, COPD (chronic obstructive pulmonary disease) J44.9 ; Tobacco abuse Z72.0 ; Tear of left supraspinatus tendon, subsequent encounter S46.812D and Type 2 diabetes mellitus with unspecified complications E11.8 [place] [id number] [place] [address] 74094- 9389 Sep, [place] [address] 86221- 1537 Aug, Left anterior shoulder pain M25.512 [place] [id number] [place] [address] 81235- 1176 Aug, Left anterior shoulder pain M25.512 and Low back pain M54.5 [place] [id number] [place] [address] 14386- 1109 Aug, [place] [id number] [place] [address] 17222- 9965 Aug, [place] [address] 55891- 9879 Aug, [place] [id number] [place] [address] 92309- 7418 Aug, [place] [address] [place] [address]- 2601 Aug, Type 2 diabetes mellitus with unspecified complications E11.8 [place] [address] 70422- 9970 Aug, Type 2 diabetes mellitus with unspecified [...] E55.9 and GERD (gastroesophageal reflux disease) K21.9 [place] [address] 80436- 3477 Aug, [place] [address] 87130- 2070 May, [place] [address] 66158- 8888 Apr, [place] [address] 85219- 3535 Apr, Type 2 diabetes mellitus with unspecified [...] S49.92XA and Anxiety associated with depression F41.8 [place] [address] 75607- 0235 Apr, [place] [address] 78713- 9998 Apr, [place] [address] 31222- 3621 Apr, [facility] [id number] [address]- 2787 Mar, [facility] [address] [address]- 8680 Feb, [facility] [address] [address]- 6308 Feb, [facility] [address] [address]- 6582 Jan, [facility] [address] [address]- 8610 Jan, [facility] [address] [address]- 5893 Jan, Type 2 diabetes mellitus with unspecified complications E11.8 ; Essential hypertension I10 and Vitamin D deficiency E55.9 [facility] [address] [address]- 6895 Dec, Type 2 diabetes mellitus with unspecified complications E11.8 ; Essential hypertension I10 ; Other chronic pain G89.29 ; Anxiety associated with depression F41.8 ; Bronchitis J40 ; Vitamin D deficiency E55.9 and COPD (chronic obstructive pulmonary disease) J44.9 [facility] [address] [address]- 0272 Nov, [facility] [address] [address]- 3355 October, [facility] [address] [address]- 0986 October, [facility] [address] [address]- 6577 October, [facility] [address] [address]- 8236 October, Dysuria R30.0 ; Bronchitis J40 ; Anxiety associated with depression F41.8 and Type 2 diabetes mellitus with unspecified complications E11.8 [place] [address] [address]- 1887 October, Chronic renal insufficiency N18.9 ; Elevated white blood cell count D72.829 and Frequent UTI N39.0 [place] [id number] [place] [address] 80017- 6260 October, Chronic renal insufficiency N18.9 ; Elevated white blood cell count D72.829 and Frequent UTI N39.0 [place] [id number] [place] [address] 12547- 3352 October, [place] [id number] [place] [address] 96779- 2945 Sep, Type 2 diabetes mellitus with unspecified complications E11.8 ; Essential hypertension I10 ; COPD (chronic obstructive pulmonary disease ) J44.9 and Hospital discharge follow-up Z09 [place] [id number] [place] [address] 92666- 0187 Sep, [id number] [place] [address] 28069- 5099 Sep, Dyspnea R06.00 ; Other chronic pain G89.29 ; Dysuria R30.0 ; Diaphoresis R61 ; Jaundice R17 ; COPD (chronic obstructive pulmonary disease) J44.9 ; Type 2 diabetes mellitus with unspecified complications E11.8 ; Excessive daytime sleepiness G47.19 and Oliguria R34 [address] [place] [address] 30336- 1799 Sep, [address] [place] [address] 07701- 7958 Sep, Essential hypertension I10 ; Anxiety associated with depression F41.8 ; Mixed hyperlipidemia E78.2 ; Dyspnea R06.00 ; Shortness of breath R06.02 and Chest pain, unspecified R07.9 [address] [place] [address] 51337- 3178 Sep, Chest pain R07.9 ; Hyperlipemia E78.5 ; Type 2 diabetes mellitus with unspecified complications E11.8 ; Essential hypertension I10 ; Other chronic pain G89.29 ; Anxiety associated with depression F41.8 ; COPD ( chronic obstructive pulmonary disease) J44.9 ; Low vitamin D level E55.9 ; Tobacco abuse Z72.0 ; Hypertriglyceridemia E78.1 and Abnormal laboratory test R89.9 [place] [id number] [place] [address] 12361- 8644 Aug, Pneumonia J18.9 ; Hypertriglyceridemia E78.1 ; COPD ( chronic obstructive pulmonary disease) J44.9 and Hyperlipidemia E78.5 [id number] [place] [address] 05869- 9676 Aug, Shortness of breath R06.02 ; Anxiety associated with depression F41.8 and Chest pain, unspecified R07.9 [id number] [place] [address] 80593- 3050 Jul, [address] 44086- 8513 Jun, Anxiety associated with depression F41.8 ; [...] unspecified type R11.2 and Tobacco abuse Z72.0 [place] [id number] [place] [address] 49815- 4208 May, Hyperlipemia E78.5 [id number] [place] [address] 42010- 4664 May, [place] [id number] [place] [address] 39193- 3737 May, Type 2 diabetes mellitus with unspecified complications E11.8 [id number] [place] [address] 44013- 9089 May, [address] 08817- 7315 May, Anxiety associated with depression F41.8 ; Type 2 diabetes mellitus with unspecified complications E11.8 ; Essential hypertension I10 ; Peripheral neuropathy G62.9 ; Low back pain M54.5 ; Other chronic pain G89.29 ; GERD (gastroesophageal reflux disease) K21.9 ; Insomnia G47.00 ; COPD (chronic obstructive pulmonary disease) J44.9 ; URI (upper respiratory infection) J06.9 and Depression F32.[address] 89131- 7869 May, Low back pain M54.5 ; Anxiety about health F41.8 ; Generalized anxiety disorder F41.1 and Acute stress reaction F43.[address] 44674- 8016 May, [id number] [place] [address] 99448- 2987 Apr, Diabetes E11.9 ; Type 2 diabetes mellitus with unspecified complications E11.8 ; Essential hypertension I10 ; Peripheral neuropathy G62.9 ; Low back pain M54.5 ; Other chronic pain G89.29 ; GERD (gastroesophageal reflux disease) K21.9 ; Anxiety associated with depression F41.8 ; Muscle spasm of calf M62.831 ; Insomnia G47.00 and COPD (chronic obstructive pulmonary disease) J44.9 [address] [place] [address] 12424- 7209 May, [address] 79418- 7569 May, IMMUNIZATIONS No Known Immunizations SOCIAL HISTORY Never Assessed REASON FOR VISIT appointment PLAN OF CARE VITAL SIGNS MEDICATIONS [...]
--- OUTSIDE RECORDS SUMMARY | 2018-02-19 17:21 | XMS REPORT ---
Author Author KATIE JEFFRIES Organization [facility] Address [address] [place] [address] Care Team Providers Care Screen Making Supervisor Name Role Phone KATIE JEFFRIES Unavailable PROBLEMS Type Condition ICD9-CM Code KBP18-OD Code Onset Dates Condition Status SNOMED Code Problem Other chronic pain G89.29 Active 84205017 Problem Insomnia G47.00 Active 893682186 Problem Type 2 diabetes mellitus with unspecified complications E11.8 Active 03503298 Problem Constipation by delayed colonic transit K59.01 Active 02526920 Problem Chronic kidney disease (CKD) stage G3b/A1, moderately decreased glomerular filtration rate (GFR) between 30-44 mL/min/1.73 square meter and albuminuria creatinine ratio less than 30 mg/g N18.3 Active 102834767 Problem Mixed hyperlipidemia E78.2 Active 258161692 Problem Controlled substance agreement signed Z79.899 Active 742405011 Problem 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 Active 43940004 Problem Vitamin D deficiency E55.9 Active 34399933 Problem Peripheral neuropathy G62.9 Active 75294972 Problem Essential hypertension I10 Active 70289467 Problem Osteoarthritis of acromioclavicular joint M19.019 Active 210772722 Problem COPD (chronic obstructive pulmonary disease) J44.9 Active 33940476 Problem Anxiety associated with depression F41.8 Active 805470874 Problem GERD (gastroesophageal reflux disease) K21.9 Active 740787063 ALLERGIES No Information ENCOUNTERS Encounter Location Date Diagnosis [facility] [address] [facility] [id number] [address] Jan, [facility] [address] [address] Jan, [facility] [id number] [address] Jan, [facility] [address] [address] Jan, Other chronic pain G89.29 and Anxiety associated with depression F41.8 [place] [address] [address] Jan, [facility] [address] [place] [address] 04305- 4724 Dec, [place] [address] [place] [id number] [place] [address] 26242- 8832 Dec, Type 2 diabetes mellitus with unspecified [...] and 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 [place] [address] [address] Dec, [place] [id number] [address] 38[address] Dec, Type 2 diabetes mellitus with unspecified complications E11.8 [place] [address], [place] [address] Dec, [place] [address] [address] 28[address] Dec, Type 2 diabetes mellitus with unspecified complications E11.8 [place] [address], [place] [address] 6[address] Dec, Type 2 diabetes mellitus with unspecified complications E11.8 [facility] [address] [address] Dec, [place] [id number] [place] [address] 67733- 3498 Dec, Type 2 diabetes mellitus with unspecified complications E11.8 [facility] [address], [place] [address] 6[address] Dec, [facility] [address], [place] [address] 4[address] Dec, [facility] [address], [place] [address] 57[address] Dec, [facility] [address], [place] [address] 9649 Dec, [facility] [address], [place] [address] 89[address] Dec, [facility] [address] [address] 8201 Dec, Other chronic pain G89.29 and Anxiety associated with depression F41.8 [facility] [address] [address] 9[address] Dec, Type 2 diabetes mellitus with unspecified complications E11.8 [facility] [address] [address] 95[address] Nov, [facility] [address] [address] 4[address] Nov, [facility] [address] [address] 5[address] Nov, [facility] [address], [place] [address] 2[address] Nov, [facility] [address], [place] [address] 9269 Nov, Type 2 diabetes mellitus with unspecified complications E11.8 [facility] [address] [address] 8[address] Nov, [facility] [address], [place] [address] 3745 Nov, Type 2 diabetes mellitus with unspecified complications E11.8 [facility] [address] [address] 11 Nov, 2017 Other chronic pain G89.29 and Anxiety associated with depression F41.8 [facility] [address] [address] 08 Nov, 2017 Chronic renal insufficiency N18.9 [facility] [id number] [place] [address] 10067- 8804 07 Nov, 2017 Other chronic pain G89.29 [facility] [id number] [place] [address] 98958- 8594 Nov, Type 2 diabetes mellitus with unspecified complications E11.8 [facility] [address] [address] 35[address] October, [facility] [id number] [place] [address] 24137- 3772 October, [facility] [address] [address] 75[address] October, Type 2 diabetes mellitus with unspecified complications E11.8 [facility] [address], [place] [address] 7349 October, [facility] [address], [place] [address]- 00[address] October, [facility] [address] [address] 0561 October, Type 2 diabetes mellitus with unspecified complications E11.8 [facility] [address], [place] [address] 9550 October, [facility] [address], [place] [address]- 1492 October, [facility] [address], [place] [address]- 2213 October, Type 2 diabetes mellitus with unspecified complications E11.8 [place] [id number] [place] [address] 01053- 4581 October, Type 2 diabetes mellitus with unspecified complications E11.8 ; Essential hypertension I10 ; Chronic renal insufficiency N18.9 ; BMI 40.0-44.9, adult Z68.41 ; Other chronic pain G89.29 ; Anxiety associated with depression F41.8 and Right medial knee pain M25.561 [place] [address] [address] October, GERD (gastroesophageal reflux disease) K21.9 and Anxiety associated with depression F41.8 [place] [address] 8[address]- 3972 October, Anxiety associated with depression F41.8 [place] [address] 23151- 0857 Sep, [place] [address] 8[address]- 4309 Sep, GERD (gastroesophageal reflux disease) K21.9 and Anxiety associated with depression F41.8 [place] [address] [address]- 2564 Aug, [place] [address] [id number] [place] [address] 89720- 3674 Aug, [facility] [id number] [place] [address]2910 -4838 Aug, Acute recurrent maxillary sinusitis J01.01 [place] [id number] [place] [address] 88710- 8802 Aug, [place] [address] 07948- 3182 Aug, GERD (gastroesophageal reflux disease) K21.9 and Other chronic pain G89.29 [place] [address] 56986- 9125 Aug, [facility] [address] [address] Aug, [facility] [address], [place] [address]- 3260 Aug, Controlled substance agreement signed Z79.899 ; [...] armpit R59.0 [facility] [address] [address]- 3858 Aug, Anxiety associated with depression F41.8 and GERD ( gastroesophageal reflux disease) K21.9 [facility] [address] [place] [address] 80349- 1784 Jul, Controlled substance agreement signed Z79.899 [facility] [id number] [place] [address] 45096- 3684 Jun, Anxiety associated with depression F41.8 and GERD ( gastroesophageal reflux disease) K21.9 [place] [address], [place] [address]- 6348 May, Anxiety associated with depression F41.8 and GERD ( gastroesophageal reflux disease) K21.9 [place] [address], [place] [address]- 4081 Apr, Mixed hyperlipidemia E78.2 [place] [id number] [place] [address] 82014- 9352 Apr, Anxiety associated with depression F41.8 and GERD ( gastroesophageal reflux disease) K21.9 [place] [address] [place] [address] 53913- 5518 Apr, [place] [address] [address]- 4104 Apr, Type 2 diabetes mellitus with unspecified complications E11.8 [place] [address] [address]- 7462 Apr, [place] [id number] [place] [address] 24919- 0191 Apr, Type 2 diabetes mellitus with unspecified complications E11.8 [place] [id number] [place] [address] 91640- 9235 Apr, [place] [id number] [place] [address] 90132- 6659 Mar, GERD (gastroesophageal reflux disease) K21.9 and Anxiety associated with depression F41.8 [place] [id number] [place] [address] 97216- 0704 Mar, 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 [place] [id number] [place] [address] 66737- 1944 Mar, Essential hypertension I10 ; Anxiety associated with depression F41.8 ; COPD (chronic obstructive pulmonary disease) J44.9 ; Mixed hyperlipidemia E78.2 ; Vitamin D deficiency E55.9 ; GERD (gastroesophageal reflux disease) K21.9 ; Type 2 diabetes mellitus with unspecified complications E11.8 ; Other chronic pain G89.29 and Chronic renal insufficiency N18.9 [place] [address], [place] [address]- 6737 Mar, Chronic renal insufficiency N18.9 [place] [address] [place] [address] 83364- 5780 Feb, GERD (gastroesophageal reflux disease) K21.9 and Type 2 diabetes mellitus with unspecified complications E11.8 [place] [address], [place] [address]- 3897 Feb, Anxiety associated with depression F41.8 and Tear of left supraspinatus tendon, subsequent encounter S46.812D [place] [id number] [place] [address] 17352- 8618 Jan, Pre-operative examination for internal medicine Z01.818 [place] [id number] [place] [address] 40115- 2900 Jan, Anxiety associated with depression F41.8 and Left anterior shoulder pain M25.512 [place] [address] 65930- 3313 Jan, [place] [address] 80019- 9565 Jan, [place] [address] 02218- 9595 Jan, Type 2 diabetes mellitus with unspecified complications E11.8 ; Essential hypertension I10 ; Other chronic pain G89.29 ; GERD ( gastroesophageal reflux disease) K21.9 ; Anxiety associated with depression F41.8 ; Insomnia G47.00 ; Hypertriglyceridemia E78.1 ; Left anterior shoulder pain M25.512 and Tobacco abuse Z72.0 [place] [id number] [place] [address] 25995- 5344 Dec, Anxiety associated with depression F41.8 and Tear of left supraspinatus tendon, subsequent encounter S46.812D [place] [id number] [place] [address] 16812- 0091 Nov, [place] [address] 61124- 7829 Nov, Anxiety associated with depression F41.8 and Tear of left supraspinatus tendon, subsequent encounter S46.812D [place] [address] 42239- 9481 05 Nov, 2016 Abnormal lung sounds R09.89 and COPD (chronic obstructive pulmonary disease) with acute bronchitis J44.0 [place] [id number] [place] [address] 77074- 7213 Nov, [place] [id number] [place] [address] 95373- 0143 October, COPD (chronic obstructive pulmonary disease) with acute bronchitis J44.0 ; Abnormal lung sounds R09.89 and Medication refill Z76.0 [place] [id number] [place] [address] 92084- 5128 October, Anxiety associated with depression F41.8 [place] [id number] [place] [address] 13704- 3848 Sep, Nausea and vomiting, unspecified intactability, vomiting of unspecified type R11.[address] 02910- 0545 Sep, COPD (chronic obstructive pulmonary disease) J44.9 ; Tobacco abuse Z72.0 ; Tear of left supraspinatus tendon, subsequent encounter S46.812D and Type 2 diabetes mellitus with unspecified complications E11.8 [place] [id number] [place] [address] 13882- 6860 Sep, [place] [id number] [place] [address] 75404- 9773 Aug, Left anterior shoulder pain M25.512 [place] [id number] [place] [address] 13032- 2709 Aug, Left anterior shoulder pain M25.512 and Low back pain M54.5 [place] [id number] [place] [address] 70465- 0975 Aug, [place] [id number] [place] [address] 18620- 4304 Aug, [place] [address] 83411- 9126 Aug, [place] [id number] [place] [address] 04333- 2860 Aug, [place] [id number] [place] [address] 13877- 6005 Aug, Type 2 diabetes mellitus with unspecified complications E11.8 [place] [id number] [place] [address] 64544- 4267 Aug, Type 2 diabetes mellitus with unspecified [...] E55.9 and GERD (gastroesophageal reflux disease) K21.9 [place] [id number] [place] [address] 41282- 2962 Aug, [place] [id number] [place] [address] 35746- 5406 May, [place] [id number] [place] [address] 93190- 4287 Apr, [place] [id number] [place] [address] 65447- 5141 Apr, Type 2 diabetes mellitus with unspecified [...] S49.92XA and Anxiety associated with depression F41.8 [place] [id number] [place] [address] 22080- 8519 Apr, [place] [id number] [place] [address] 75681- 7795 Apr, [place] [id number] [place] [address] 99551- 0219 Apr, [address] [address]- 7829 Mar, [facility] [address], [place] [address]- 3339 Feb, [facility] [address], [place] [address]- 1757 Feb, [facility] [address] [address]- 9203 Jan, [facility] [id number] [place] [address] 37290- 0402 Jan, [facility] [id number] [place] [address] 43179- 6684 Jan, Type 2 diabetes mellitus with unspecified complications E11.8 ; Essential hypertension I10 and Vitamin D deficiency E55.9 [place] [id number] [place] [address] 55912- 1955 Dec, Type 2 diabetes mellitus with unspecified complications E11.8 ; Essential hypertension I10 ; Other chronic pain G89.29 ; Anxiety associated with depression F41.8 ; Bronchitis J40 ; Vitamin D deficiency E55.9 and COPD (chronic obstructive pulmonary disease) J44.9 [facility] [address], [place] [address]- 8259 Nov, [facility] [address], [place] [address]- 1411 October, [facility] [address], [place] [address]- 7308 October, [facility] [address], [place] [address]- 1706 October, [facility] [address] [address]- 6974 October, Dysuria R30.0 ; Bronchitis J40 ; Anxiety associated with depression F41.8 and Type 2 diabetes mellitus with unspecified complications E11.8 [facility] [id number] [place] [address] 79876- 1732 October, Chronic renal insufficiency N18.9 ; Elevated white blood cell count D72.829 and Frequent UTI N39.0 [place] [id number] [place] [address] 40905- 8363 October, Chronic renal insufficiency N18.9 ; Elevated white blood cell count D72.829 and Frequent UTI N39.0 [place] [id number] [place] [address] 90816- 8006 October, [place] [id number] [place] [address] 14852- 3823 Sep, Type 2 diabetes mellitus with unspecified complications E11.8 ; Essential hypertension I10 ; COPD (chronic obstructive pulmonary disease ) J44.9 and Hospital discharge follow-up Z09 [place] [id number] [place] [address] 73785- 4868 Sep, [place] [id number] [place] [address] 19050- 4187 Sep, Dyspnea R06.00 ; Other chronic pain G89.29 ; Dysuria R30.0 ; Diaphoresis R61 ; Jaundice R17 ; COPD (chronic obstructive pulmonary disease) J44.9 ; Type 2 diabetes mellitus with unspecified complications E11.8 ; Excessive daytime sleepiness G47.19 and Oliguria R34 [place] [id number] [place] [address] 06210- 5547 Sep, [place] [id number] [place] [address] 00167- 6488 Sep, Essential hypertension I10 ; Anxiety associated with depression F41.8 ; Mixed hyperlipidemia E78.2 ; Dyspnea R06.00 ; Shortness of breath R06.02 and Chest pain, unspecified R07.[address] [place] [address] 63676- 5619 Sep, Chest pain R07.9 ; Hyperlipemia E78.5 ; Type 2 diabetes mellitus with unspecified complications E11.8 ; Essential hypertension I10 ; Other chronic pain G89.29 ; Anxiety associated with depression F41.8 ; COPD ( chronic obstructive pulmonary disease) J44.9 ; Low vitamin D level E55.9 ; Tobacco abuse Z72.0 ; Hypertriglyceridemia E78.1 and Abnormal laboratory test R89.9 [place] [id number] [place] [address] 10078- 5762 Aug, Pneumonia J18.9 ; Hypertriglyceridemia E78.1 ; COPD ( chronic obstructive pulmonary disease) J44.9 and Hyperlipidemia E78.5 [place] [id number] [place] [address] 88203- 9460 Aug, Shortness of breath R06.02 ; Anxiety associated with depression F41.8 and Chest pain, unspecified R07.9 [place] [id number] [place] [address] 26684- 2374 Jul, [address] 96934- 5695 Jun, Anxiety associated with depression F41.8 ; [...] unspecified type R11.2 and Tobacco abuse Z72.0 [place] [address] [place] [address] 47688- 7595 May, Hyperlipemia E78.5 [place] [id number] [place] [address] 22370- 9369 May, [place] [id number] [place] [address] 96513- 9796 May, Type 2 diabetes mellitus with unspecified complications E11.8 [place] [id number] [place] [address] 81142- 6182 May, [place] [address] [place] [address] 22572- 6992 May, Anxiety associated with depression F41.8 ; Type 2 diabetes mellitus with unspecified complications E11.8 ; Essential hypertension I10 ; Peripheral neuropathy G62.9 ; Low back pain M54.5 ; Other chronic pain G89.29 ; GERD (gastroesophageal reflux disease) K21.9 ; Insomnia G47.00 ; COPD (chronic obstructive pulmonary disease) J44.9 ; URI (upper respiratory infection) J06.9 and Depression F32.9 [place] [id number] [place] [address] 46980- 3847 May, Low back pain M54.5 ; Anxiety about health F41.8 ; Generalized anxiety disorder F41.1 and Acute stress reaction F43.0 [place] [id number] [place] [address] 41230- 7016 May, [place] [id number] [place] [address] 45729- 8138 Apr, Diabetes E11.9 ; Type 2 diabetes mellitus with unspecified complications E11.8 ; Essential hypertension I10 ; Peripheral neuropathy G62.9 ; Low back pain M54.5 ; Other chronic pain G89.29 ; GERD (gastroesophageal reflux disease) K21.9 ; Anxiety associated with depression F41.8 ; Muscle spasm of calf M62.831 ; Insomnia G47.00 and COPD (chronic obstructive pulmonary disease) J44.9 [place] [address] [place] [address] 94358- 0637 May, [place] [id number] [place] [address] 25877- 3120 May, IMMUNIZATIONS No Known Immunizations SOCIAL HISTORY Never Assessed REASON FOR VISIT med change PLAN OF CARE VITAL SIGNS MEDICATIONS Medication Instructions Dosage Frequency Start Date End Date Duration Status Metolazone 5 mg Orally Once a day 1 tablet 24h Nov, 30 day(s) Active RESULTS No Results PROCEDURES [...]
--- OUTSIDE RECORDS SUMMARY | 2018-02-19 17:22 | XMS REPORT ---
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 Name Role Phone MERVIN KATIE Unavailable PROBLEMS Type Condition ICD9-CM Code HHD51-GN Code Onset Dates Condition Status SNOMED Code Problem Other chronic pain G89.29 Active 38847144 Problem Insomnia G47.00 Active 245161202 Problem Type 2 diabetes mellitus with unspecified complications E11.8 Active 02699411 Problem Constipation by delayed colonic transit K59.01 Active 80503764 Problem Chronic kidney disease (CKD) stage G3b/A1, moderately decreased glomerular filtration rate (GFR) between 30-44 mL/min/1.73 square meter and albuminuria creatinine ratio less than 30 mg/g N18.3 Active 771285468 Problem Mixed hyperlipidemia E78.2 Active 062363658 Problem Controlled substance agreement signed Z79.899 Active 150016730 Problem 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 Active 91507641 Problem Vitamin D deficiency E55.9 Active 98810090 Problem Peripheral neuropathy G62.9 Active 94893694 Problem Essential hypertension I10 Active 45579364 Problem Osteoarthritis of acromioclavicular joint M19.019 Active 078870123 Problem COPD (chronic obstructive pulmonary disease) J44.9 Active 62500922 Problem Anxiety associated with depression F41.8 Active 047026213 Problem GERD (gastroesophageal reflux disease) K21.9 Active 679282275 ALLERGIES No Information ENCOUNTERS Encounter Location Date Diagnosis [facility] [id number] [address] Jan, [facility] [address] [address] Jan, Other chronic pain G89.29 and Anxiety associated with depression F41.8 [facility] [id number] [place] [address] 12457- 0404 Jan, [facility] [id number] [place] [address] 55590- 1155 Dec, [facility] [id number] [place] [address] 80635- 0175 Dec, Type 2 diabetes mellitus with unspecified [...] and 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 [place] [id number] [place] [address] 70570- 6947 Dec, [place] [id number] [place] [address] 49993- 3552 Dec, Type 2 diabetes mellitus with unspecified complications E11.8 [facility] [id number] [place] [address] 29631- 2536 Dec, [facility] [id number] [place] [address] 30206- 2061 Dec, Type 2 diabetes mellitus with unspecified complications E11.8 [facility] [id number] [place] [address] 67555- 9405 Dec, Type 2 diabetes mellitus with unspecified complications E11.8 [facility] [id number] [place] [address] 00884- 4392 Dec, [facility] [id number] [place] [address] 01887- 0833 Dec, Type 2 diabetes mellitus with unspecified complications E11.8 [facility] [id number] [place] [address] 63994- 9643 Dec, [facility] [id number] [address] 3583 Dec, [facility] [address] [facility] [id number] [address] 8[address] Dec, [facility] [id number] [address] 2196 Dec, [facility] [address], [place] [address] Dec, [facility] [id number] [address] 4197 Dec, Other chronic pain G89.29 and Anxiety associated with depression F41.8 [facility] [id number] [address] 4762 Dec, Type 2 diabetes mellitus with unspecified complications E11.8 [facility] [address] [address] 1643 Nov, [facility] [address] [address] 2829 Nov, [facility] [address] [address] 1328 Nov, [facility] [id number] [address] 1157 Nov, [facility] [id number] [address] 3407 Nov, Type 2 diabetes mellitus with unspecified complications E11.8 [facility] [address] [facility] [id number], [place] [address] 0364 Nov, [facility] [id number] [address] 0897 Nov, Type 2 diabetes mellitus with unspecified complications E11.8 [facility] [id number] [address] 5082 Nov, Other chronic pain G89.29 and Anxiety associated with depression F41.8 [facility] [address] [facility] [id number] [place] [address] 2546 08 Nov, 2017 Chronic renal insufficiency N18.9 [facility] [address] [place] [address] 2546 Nov, Other chronic pain G89.29 [facility] [address] [place] [address] 2546 Nov, Type 2 diabetes mellitus with unspecified complications E11.8 [facility] [address] [facility] [id number] [place] [address] 9896 October, [facility] [address] [place] [address] 8426 October, [facility] [address] [place] [address]- 3678 October, Type 2 diabetes mellitus with unspecified complications E11.8 [facility] [address], [place] [address] 8044 October, [facility] [address] [place] [address] 7922 October, [facility] [address] [address] 4360 October, Type 2 diabetes mellitus with unspecified complications E11.8 [facility] [address], [place] [address] 7496 October, [facility] [id number] [address]- 2546 October, [facility] [id number] [address] 5118 October, Type 2 diabetes mellitus with unspecified complications E11.8 [facility] [id number] [place] [address] 2548 October, Type 2 diabetes mellitus with unspecified complications E11.8 ; Essential hypertension I10 ; Chronic renal insufficiency N18.9 ; BMI 40.0-44.9, adult Z68.41 ; Other chronic pain G89.29 ; Anxiety associated with depression F41.8 and Right medial knee pain M25.561 [place] [address] 36851- 6644 October, GERD (gastroesophageal reflux disease) K21.9 and Anxiety associated with depression F41.8 [place] [address] 26329- 3996 October, Anxiety associated with depression F41.8 [place] [address] 72267- 9604 Sep, [place] [address] 06489- 8793 Sep, GERD (gastroesophageal reflux disease) K21.9 and Anxiety associated with depression F41.8 [place] [address] 48927- 9918 Aug, [place] [address] 08550- 1994 Aug, [facility] [address] 41646 -[address]73 Aug, Acute recurrent maxillary sinusitis J01.01 [place] [address] 74086- 0910 Aug, [place] [address] 92209- 9280 Aug, GERD (gastroesophageal reflux disease) K21.9 and Other chronic pain G89.29 [place] [address] 39305- 6160 Aug, [facility] [address] 99343 -1794 Aug, [place] [address] 23286- 3057 Aug, Controlled substance agreement signed Z79.899 ; [...] and Enlarged lymph nodes in armpit R59.0 [place] [address] 69407- 3639 Aug, Anxiety associated with depression F41.8 and GERD ( gastroesophageal reflux disease) K21.9 [place] [address] 84933- 3961 Jul, Controlled substance agreement signed Z79.899 [place] [address] 81372- 0415 Jun, Anxiety associated with depression F41.8 and GERD ( gastroesophageal reflux disease) K21.9 [place] [address] 81825- 7107 May, Anxiety associated with depression F41.8 and GERD ( gastroesophageal reflux disease) K21.9 [place] [id number] [place] [address] 50779- 1765 Apr, Mixed hyperlipidemia E78.2 [place] [id number] [place] [address] 31937- 6314 Apr, Anxiety associated with depression F41.8 and GERD ( gastroesophageal reflux disease) K21.9 [place] [id number] [place] [address] 24036- 3775 Apr, [place] [address] 11531- 5018 Apr, Type 2 diabetes mellitus with unspecified complications E11.8 [place] [address] 22945- 3153 Apr, [place] [id number] [place] [address] 58246- 8273 Apr, Type 2 diabetes mellitus with unspecified complications E11.8 [place] [id number] [place] [address] 93469- 6849 Apr, [place] [id number] [place] [address] 81885- 1081 Mar, GERD (gastroesophageal reflux disease) K21.9 and Anxiety associated with depression F41.8 [place] [id number] [place] [address] 35502- 5029 Mar, 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 [place] [id number] [place] [address] 00858- 0665 Mar, Essential hypertension I10 ; Anxiety associated with depression F41.8 ; COPD (chronic obstructive pulmonary disease) J44.9 ; Mixed hyperlipidemia E78.2 ; Vitamin D deficiency E55.9 ; GERD (gastroesophageal reflux disease) K21.9 ; Type 2 diabetes mellitus with unspecified complications E11.8 ; Other chronic pain G89.29 and Chronic renal insufficiency N18.9 [place] [id number] [place] [address] 30404- 0862 Mar, Chronic renal insufficiency N18.9 [place] [id number] [place] [address] 57665- 0917 Feb, GERD (gastroesophageal reflux disease) K21.9 and Type 2 diabetes mellitus with unspecified complications E11.8 [place] [id number] [place] [address] 71895- 8048 Feb, Anxiety associated with depression F41.8 and Tear of left supraspinatus tendon, subsequent encounter S46.812D [place] [id number] [place] [address] 93090- 9771 Jan, Pre-operative examination for internal medicine Z01.818 [place] [address] 50893- 5942 Jan, Anxiety associated with depression F41.8 and Left anterior shoulder pain M25.512 [place] [id number] [place] [address] 91661- 2872 Jan, [place] [id number] [place] [address] 90431- 6991 Jan, [place] [id number] [place] [address] 19041- 4719 Jan, Type 2 diabetes mellitus with unspecified complications E11.8 ; Essential hypertension I10 ; Other chronic pain G89.29 ; GERD ( gastroesophageal reflux disease) K21.9 ; Anxiety associated with depression F41.8 ; Insomnia G47.00 ; Hypertriglyceridemia E78.1 ; Left anterior shoulder pain M25.512 and Tobacco abuse Z72.0 [id number] [place] [address] 08405- 2348 Dec, Anxiety associated with depression F41.8 and Tear of left supraspinatus tendon, subsequent encounter S46.812D [place] [id number] [place] [address] 13898- 4794 Nov, [place] [id number] [place] [address] 02944- 3067 Nov, Anxiety associated with depression F41.8 and Tear of left supraspinatus tendon, subsequent encounter S46.812D [address] [address] [id number] [place] [address] 97667- 5796 Nov, Abnormal lung sounds R09.89 and COPD (chronic obstructive pulmonary disease) with acute bronchitis J44.0 [id number] [place] [address] 84106- 2589 Nov, [place] [id number] [place] [address] 44918- 1830 October, COPD (chronic obstructive pulmonary disease) with acute bronchitis J44.0 ; Abnormal lung sounds R09.89 and Medication refill Z76.[id number] [place] [address] 30183- 5757 October, Anxiety associated with depression F41.8 [place] [id number] [place] [address] 94133- 2203 Sep, Nausea and vomiting, unspecified intactability, vomiting of unspecified type R11.2 [place] [id number] [place] [address] 39443- 1375 Sep, COPD (chronic obstructive pulmonary disease) J44.9 ; Tobacco abuse Z72.0 ; Tear of left supraspinatus tendon, subsequent encounter S46.812D and Type 2 diabetes mellitus with unspecified complications E11.8 [place] [id number] [place] [address] 48598- 6748 Sep, [place] [id number] [place] [address] 58450- 1704 Aug, Left anterior shoulder pain M25.512 [place] [id number] [place] [address] 16471- 7464 Aug, Left anterior shoulder pain M25.512 and Low back pain M54.5 [place] [id number] [place] [address] 34370- 0738 Aug, [place] [id number] [place] [address] 19528- 9431 Aug, [place] [id number] [place] [address] 75402- 6516 Aug, [place] [id number] [place] [address] 66030- 9795 Aug, [place] [id number] [place] [address] 11053- 2940 Aug, Type 2 diabetes mellitus with unspecified complications E11.8 [place] [id number] [place] [address] 74201- 8265 Aug, Type 2 diabetes mellitus with unspecified [...] E55.9 and GERD (gastroesophageal reflux disease) K21.9 [place] [id number] [place] [address] 84443- 0544 Aug, [place] [id number] [place] [address] 20968- 4415 May, [place] [id number] [place] [address] 47868- 9648 Apr, [place] [id number] [place] [address] 38813- 3805 Apr, Type 2 diabetes mellitus with unspecified [...] S49.92XA and Anxiety associated with depression F41.8 [place] [id number] [place] [address] 52662- 2818 Apr, [place] [id number] [place] [address] 67907- 4550 Apr, [place] [id number] [place] [address] 29903- 9147 Apr, [place] [id number] [place] [address] 48782- 4388 Mar, [place] [address], [place] [address]- 7262 Feb, [place] [address], [place] [address]- 3908 Feb, [place] [id number] [place] [address] 39292- 1763 Jan, [place] [id number] [place] [address] 24473- 6680 Jan, [place] [id number] [place] [address] 92793- 8601 Jan, Type 2 diabetes mellitus with unspecified complications E11.8 ; Essential hypertension I10 and Vitamin D deficiency E55.9 [place] [id number] [place] [address] 82097- 8521 Dec, Type 2 diabetes mellitus with unspecified complications E11.8 ; Essential hypertension I10 ; Other chronic pain G89.29 ; Anxiety associated with depression F41.8 ; Bronchitis J40 ; Vitamin D deficiency E55.9 and COPD (chronic obstructive pulmonary disease) J44.9 [place] [id number] [place] [address] 22891- 3219 Nov, [place] [id number] [place] [address] 49056- 7237 October, [place] [id number] [place] [address] 27997- 3693 October, [place] [id number] [place] [address] 19182- 4989 October, [place] [id number] [place] [address] 91583- 3436 October, Dysuria R30.0 ; Bronchitis J40 ; Anxiety associated with depression F41.8 and Type 2 diabetes mellitus with unspecified complications E11.8 [place] [id number] [place] [address] 12840- 7817 October, Chronic renal insufficiency N18.9 ; Elevated white blood cell count D72.829 and Frequent UTI N39.0 [place] [id number] [place] [address] 89867- 8453 October, Chronic renal insufficiency N18.9 ; Elevated white blood cell count D72.829 and Frequent UTI N39.0 [place] [address] [place] [address] 85903- 0982 October, [place] [id number] [place] [address] 56261- 9480 Sep, Type 2 diabetes mellitus with unspecified complications E11.8 ; Essential hypertension I10 ; COPD (chronic obstructive pulmonary disease ) J44.9 and Hospital discharge follow-up Z09 [place] [id number] [place] [address] 60273- 8972 Sep, [place] [id number] [place] [address] 72165- 2509 Sep, Dyspnea R06.00 ; Other chronic pain G89.29 ; Dysuria R30.0 ; Diaphoresis R61 ; Jaundice R17 ; COPD (chronic obstructive pulmonary disease) J44.9 ; Type 2 diabetes mellitus with unspecified complications E11.8 ; Excessive daytime sleepiness G47.19 and Oliguria R34 [place] [address] [place] [address] 83880- 4677 Sep, [place] [address] [place] [address] 41417- 7082 Sep, Essential hypertension I10 ; Anxiety associated with depression F41.8 ; Mixed hyperlipidemia E78.2 ; Dyspnea R06.00 ; Shortness of breath R06.02 and Chest pain, unspecified R07.9 [place] [address] [place] [address] 92802- 0129 Sep, Chest pain R07.9 ; Hyperlipemia E78.5 ; Type 2 diabetes mellitus with unspecified complications E11.8 ; Essential hypertension I10 ; Other chronic pain G89.29 ; Anxiety associated with depression F41.8 ; COPD ( chronic obstructive pulmonary disease) J44.9 ; Low vitamin D level E55.9 ; Tobacco abuse Z72.0 ; Hypertriglyceridemia E78.1 and Abnormal laboratory test R89.9 [place] [id number] [place] [address] 73602- 7056 Aug, Pneumonia J18.9 ; Hypertriglyceridemia E78.1 ; COPD ( chronic obstructive pulmonary disease) J44.9 and Hyperlipidemia E78.5 [place] [id number] [place] [address] 34193- 0262 Aug, Shortness of breath R06.02 ; Anxiety associated with depression F41.8 and Chest pain, unspecified R07.9 [place] [id number] [place] [address] 42223- 1055 Jul, [place] [id number] [place] [address] 39092- 9932 Jun, Anxiety associated with depression F41.8 ; [...] unspecified type R11.2 and Tobacco abuse Z72.0 [place] [id number] [place] [address] 73281- 0113 May, Hyperlipemia E78.5 [place] [id number] [place] [address] 08964- 3622 May, [place] [id number] [place] [address] 71520- 8812 May, Type 2 diabetes mellitus with unspecified complications E11.8 [place] [id number] [place] [address] 55925- 0014 May, [place] [id number] [place] [address] 29593- 7557 May, Anxiety associated with depression F41.8 ; Type 2 diabetes mellitus with unspecified complications E11.8 ; Essential hypertension I10 ; Peripheral neuropathy G62.9 ; Low back pain M54.5 ; Other chronic pain G89.29 ; GERD (gastroesophageal reflux disease) K21.9 ; Insomnia G47.00 ; COPD (chronic obstructive pulmonary disease) J44.9 ; URI (upper respiratory infection) J06.9 and Depression F32.9 [place] [id number] [place] [address] 57638- 8179 May, Low back pain M54.5 ; Anxiety about health F41.8 ; Generalized anxiety disorder F41.1 and Acute stress reaction F43.[address] 27478- 4060 May, [address] 19419- 4180 Apr, Diabetes E11.9 ; Type 2 diabetes mellitus with unspecified complications E11.8 ; Essential hypertension I10 ; Peripheral neuropathy G62.9 ; Low back pain M54.5 ; Other chronic pain G89.29 ; GERD (gastroesophageal reflux disease) K21.9 ; Anxiety associated with depression F41.8 ; Muscle spasm of calf M62.831 ; Insomnia G47.00 and COPD (chronic obstructive pulmonary disease) J44.[address] 35527- 5607 May, [address] 56901- 5860 May, IMMUNIZATIONS No Known Immunizations SOCIAL HISTORY Never Assessed REASON FOR VISIT refills PLAN OF CARE VITAL SIGNS MEDICATIONS Medication Instructions Dosage Frequency Start Date End Date Duration Status Pen [place] 30G X 5 MM as directed Nov, 30 days Active RESULTS No Results PROCEDURES [...]
--- OUTSIDE RECORDS SUMMARY | 2018-02-19 17:22 | XMS REPORT ---
Author Author KATIE JEFFRIES Organization [facility] Address [address] [place] [address] Care Team Providers Care Fur Stylist Name Role Phone MERVIN KATIE Unavailable PROBLEMS Type Condition ICD9-CM Code [id number] Code Onset Dates Condition Status SNOMED Code Problem Other chronic pain G89.29 Active 84403140 Problem Insomnia G47.00 Active 311416248 Problem Type 2 diabetes mellitus with unspecified complications E11.8 Active 48521866 Problem Constipation by delayed colonic transit K59.01 Active 11869217 Problem Chronic kidney disease (CKD) stage G3b/A1, moderately decreased glomerular filtration rate (GFR) between 30-44 mL/min/1.73 square meter and albuminuria creatinine ratio less than 30 mg/g N18.3 Active 437263842 Problem Mixed hyperlipidemia E78.2 Active 788797850 Problem Controlled substance agreement signed Z79.899 Active 678604771 Problem 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 [id number], [place] [address] Jan, [facility] [address], [place] [address] Jan, Other chronic pain G89.29 and Anxiety associated with depression F41.8 [facility] [id number] [place] [address] 39286- 1492 Jan, [facility] [id number] [place] [address] 47042- 5302 Dec, [facility] [id number] [place] [address] 87559- 4774 Dec, Type 2 diabetes mellitus with unspecified [...] and 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 [facility] [id number] [place] [address] 68010- 0796 Dec, [facility] [id number] [place] [address] 30990- 7752 Dec, Type 2 diabetes mellitus with unspecified complications E11.8 [facility] [id number] [place] [address] 54065- 7230 Dec, [facility] [id number] [place] [address] 59689- 0639 Dec, Type 2 diabetes mellitus with unspecified complications E11.8 [facility] [id number] [place] [address] 77259- 1912 Dec, Type 2 diabetes mellitus with unspecified complications E11.8 [facility] [id number] [place] [address] 02584- 4088 Dec, [facility] [id number] [place] [address] 63412- 1021 Dec, Type 2 diabetes mellitus with unspecified complications E11.8 [facility] [id number] [place] [address] 79713- 4617 Dec, [facility] [id number] [address] Dec, [facility] [address] [facility] [id number] [address] Dec, [facility] [id number] [address] Dec, [facility] [address], [place] [address] Dec, [facility] [id number] [address] 7709 Dec, Other chronic pain G89.29 and Anxiety associated with depression F41.8 [facility] [id number], [place] [address] 4482 Dec, Type 2 diabetes mellitus with unspecified complications E11.8 [facility] [address], [place] [address] Nov, [facility] [address] [address] Nov, [facility] [address] [address] Nov, [facility] [id number], [place] [address] Nov, [facility] [id number], [place] [address] 8585 Nov, Type 2 diabetes mellitus with unspecified complications E11.8 [facility] [address] [facility] [id number], [place] [address] Nov, [facility] [id number] [address] 3009 Nov, Type 2 diabetes mellitus with unspecified complications E11.8 [facility] [id number] [address] 4135 Nov, Other chronic pain G89.29 and Anxiety associated with depression F41.8 [facility] [address] [facility] [id number] [place] [address] 2546 08 Nov, 2017 Chronic renal insufficiency N18.9 [facility] [address] [place] [address] 2546 Nov, Other chronic pain G89.29 [facility] [address] [place] [address] 2546 Nov, Type 2 diabetes mellitus with unspecified complications E11.8 [facility] [address] [facility] [id number] [place] [address] October, [facility] [address] [place] [address] October, [facility] [address] [place] [address]- 4614 October, Type 2 diabetes mellitus with unspecified complications E11.8 [facility] [address], [place] [address] October, [facility] [address] [place] [address] 6[address] October, [facility] [address], [place] [address] 0616 October, Type 2 diabetes mellitus with unspecified complications E11.8 [facility] [address], [place] [address] October, [facility] [id number], [place] [address] October, [facility] [id number], [place] [address] 1235 October, Type 2 diabetes mellitus with unspecified complications E11.8 [facility] [id number] [place] [address]- 25[address] October, Type 2 diabetes mellitus with unspecified complications E11.8 ; Essential hypertension I10 ; Chronic renal insufficiency N18.9 ; BMI 40.0-44.9, adult Z68.41 ; Other chronic pain G89.29 ; Anxiety associated with depression F41.8 and Right medial knee pain M25.561 [address] [address] 83976- 5139 October, GERD (gastroesophageal reflux disease) K21.9 and Anxiety associated with depression F41.8 [place] [address] 39464- 6777 October, Anxiety associated with depression F41.8 [place] [address] 27337- 9007 Sep, [facility] [address] 41111- 5566 Sep, GERD (gastroesophageal reflux disease) K21.9 and Anxiety associated with depression F41.8 [address] [address] 18533- 2316 Aug, [place] [address] 59798- 9853 Aug, [facility] [address] [address] -[address] Aug, Acute recurrent maxillary sinusitis J01.01 [address] [address] 13378- 5194 Aug, [place] [address] 27013- 4570 Aug, GERD (gastroesophageal reflux disease) K21.9 and Other chronic pain G89.29 [address] [address] 94911- 5890 Aug, [facility] [address] 0[address] -[address]7 Aug, [place] [address] 40862- 6263 Aug, Controlled substance agreement signed Z79.899 ; [...] and Enlarged lymph nodes in armpit R59.0 [place] [address] 24894- 2828 Aug, Anxiety associated with depression F41.8 and GERD ( gastroesophageal reflux disease) K21.9 [place] [address] 28190- 7128 Jul, Controlled substance agreement signed Z79.899 [place] [address] 92118- 5470 Jun, Anxiety associated with depression F41.8 and GERD ( gastroesophageal reflux disease) K21.9 [place] [address] 11595- 8141 May, Anxiety associated with depression F41.8 and GERD ( gastroesophageal reflux disease) K21.9 [place] [facility] [id number] [place] [address] 20120- 4897 Apr, Mixed hyperlipidemia E78.2 [facility] [id number] [place] [address] 27540- 2592 Apr, Anxiety associated with depression F41.8 and GERD ( gastroesophageal reflux disease) K21.9 [facility] [facility] [id number] [place] [address] 37986- 6212 Apr, [address] [address] 66988- 4127 Apr, Type 2 diabetes mellitus with unspecified complications E11.8 [place] [address] 59314- 9371 Apr, [place] [address] [place] [address] 94949- 7906 Apr, Type 2 diabetes mellitus with unspecified complications E11.8 [facility] [id number] [place] [address] 33310- 1514 Apr, [facility] [id number] [place] [address] 99901- 5514 Mar, GERD (gastroesophageal reflux disease) K21.9 and Anxiety associated with depression F41.8 [facility] [id number] [place] [address] 19732- 8702 Mar, 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 [facility] [id number] [place] [address] 58387- 2993 Mar, Essential hypertension I10 ; Anxiety associated with depression F41.8 ; COPD (chronic obstructive pulmonary disease) J44.9 ; Mixed hyperlipidemia E78.2 ; Vitamin D deficiency E55.9 ; GERD (gastroesophageal reflux disease) K21.9 ; Type 2 diabetes mellitus with unspecified complications E11.8 ; Other chronic pain G89.29 and Chronic renal insufficiency N18.9 [place] [facility] [id number] [place] [address] 52806- 3796 Mar, Chronic renal insufficiency N18.9 [facility] [id number] [place] [address] 98674- 3770 Feb, GERD (gastroesophageal reflux disease) K21.9 and Type 2 diabetes mellitus with unspecified complications E11.8 [facility] [id number] [place] [address] 04602- 4942 Feb, Anxiety associated with depression F41.8 and Tear of left supraspinatus tendon, subsequent encounter S46.812D [place] [facility] [id number] [place] [address] 55504- 4721 Jan, Pre-operative examination for internal medicine Z01.818 [place] [address] 65119- 5778 Jan, Anxiety associated with depression F41.8 and Left anterior shoulder pain M25.512 [place] [facility] [id number] [place] [address] 23474- 7545 Jan, [facility] [id number] [place] [address] 51324- 0889 Jan, [place] [id number] [place] [address] 24747- 5217 Jan, Type 2 diabetes mellitus with unspecified complications E11.8 ; Essential hypertension I10 ; Other chronic pain G89.29 ; GERD ( gastroesophageal reflux disease) K21.9 ; Anxiety associated with depression F41.8 ; Insomnia G47.00 ; Hypertriglyceridemia E78.1 ; Left anterior shoulder pain M25.512 and Tobacco abuse Z72.0 [id number] [place] [address] 03864- 5848 Dec, Anxiety associated with depression F41.8 and Tear of left supraspinatus tendon, subsequent encounter S46.812D [place] [id number] [place] [address] 47467- 2421 Nov, [id number] [place] [address] 88070- 3382 Nov, Anxiety associated with depression F41.8 and Tear of left supraspinatus tendon, subsequent encounter S46.812D [id number] [place] [address] 46929- 1374 Nov, Abnormal lung sounds R09.89 and COPD (chronic obstructive pulmonary disease) with acute bronchitis J44.0 [id number] [place] [address] 72982- 2516 Nov, [id number] [place] [address] 81071- 7253 October, COPD (chronic obstructive pulmonary disease) with acute bronchitis J44.0 ; Abnormal lung sounds R09.89 and Medication refill Z76.[id number] [place] [address] 21747- 8686 October, Anxiety associated with depression F41.8 [facility] [place] [id number] [place] [address] 43396- 8959 Sep, Nausea and vomiting, unspecified intactability, vomiting of unspecified type R11.2 [place] [id number] [place] [address] 02123- 8364 Sep, COPD (chronic obstructive pulmonary disease) J44.9 ; Tobacco abuse Z72.0 ; Tear of left supraspinatus tendon, subsequent encounter S46.812D and Type 2 diabetes mellitus with unspecified complications E11.8 [place] [id number] [place] [address] 52522- 1741 Sep, [place] [id number] [place] [address] 16000- 1532 Aug, Left anterior shoulder pain M25.512 [facility] [facility] [id number] [place] [address] 93710- 4899 Aug, Left anterior shoulder pain M25.512 and Low back pain M54.5 [place] [id number] [place] [address] 31928- 4530 Aug, [facility] [id number] [place] [address] 13925- 4873 Aug, [facility] [id number] [place] [address] 38900- 1112 Aug, [facility] [id number] [place] [address] 91559- 1032 Aug, [facility] [id number] [place] [address] 26312- 9560 Aug, Type 2 diabetes mellitus with unspecified complications E11.8 [facility] [id number] [place] [address] 52507- 8409 Aug, Type 2 diabetes mellitus with unspecified [...] E55.9 and GERD (gastroesophageal reflux disease) K21.9 [facility] [id number] [place] [address] 12227- 2694 Aug, [facility] [id number] [place] [address] 84683- 1396 May, [facility] [id number] [place] [address] 67605- 4284 Apr, [facility] [id number] [place] [address] 74075- 9610 Apr, Type 2 diabetes mellitus with unspecified [...] S49.92XA and Anxiety associated with depression F41.8 [place] [address] [place] [address] 16904- 0895 Apr, [place] [id number] [place] [address] 48923- 3687 Apr, [place] [id number] [place] [address] 39419- 0714 Apr, [place] [id number] [place] [address] 33595- 3661 Mar, [address], [place] [address]- 8859 Feb, [place] [address], [place] [address]- 3590 Feb, [place] [id number] [place] [address] 04272- 8393 Jan, [facility] [place] [id number] [place] [address] 13223- 3130 Jan, [place] [id number] [place] [address] 19422- 4039 Jan, Type 2 diabetes mellitus with unspecified complications E11.8 ; Essential hypertension I10 and Vitamin D deficiency E55.9 [facility] [place] [id number] [place] [address] 11862- 3423 Dec, Type 2 diabetes mellitus with unspecified complications E11.8 ; Essential hypertension I10 ; Other chronic pain G89.29 ; Anxiety associated with depression F41.8 ; Bronchitis J40 ; Vitamin D deficiency E55.9 and COPD (chronic obstructive pulmonary disease) J44.9 [place] [id number] [place] [address] 68282- 0929 Nov, [place] [facility] [id number] [place] [address] 56307- 5956 October, [facility] [id number] [place] [address] 09390- 9883 October, [facility] [id number] [place] [address] 69643- 8895 October, [facility] [id number] [place] [address] 60503- 8621 October, Dysuria R30.0 ; Bronchitis J40 ; Anxiety associated with depression F41.8 and Type 2 diabetes mellitus with unspecified complications E11.8 [facility] [id number] [place] [address] 65101- 7450 October, Chronic renal insufficiency N18.9 ; Elevated white blood cell count D72.829 and Frequent UTI N39.0 [facility] [id number] [place] [address] 61241- 1542 October, Chronic renal insufficiency N18.9 ; Elevated white blood cell count D72.829 and Frequent UTI N39.0 [place] [address] [place] [address] 89240- 7132 October, [facility] [id number] [place] [address] 70732- 6001 Sep, Type 2 diabetes mellitus with unspecified complications E11.8 ; Essential hypertension I10 ; COPD (chronic obstructive pulmonary disease ) J44.9 and Hospital discharge follow-up Z09 [place] [id number] [place] [address] 51351- 6218 Sep, [place] [id number] [place] [address] 98493- 1190 Sep, Dyspnea R06.00 ; Other chronic pain G89.29 ; Dysuria R30.0 ; Diaphoresis R61 ; Jaundice R17 ; COPD (chronic obstructive pulmonary disease) J44.9 ; Type 2 diabetes mellitus with unspecified complications E11.8 ; Excessive daytime sleepiness G47.19 and Oliguria R34 [place] [address] [place] [address] 58025- 3759 Sep, [place] [address] [place] [address] 21463- 9409 Sep, Essential hypertension I10 ; Anxiety associated with depression F41.8 ; Mixed hyperlipidemia E78.2 ; Dyspnea R06.00 ; Shortness of breath R06.02 and Chest pain, unspecified R07.9 [place] [address] [place] [address] 73808- 0629 Sep, Chest pain R07.9 ; Hyperlipemia E78.5 ; Type 2 diabetes mellitus with unspecified complications E11.8 ; Essential hypertension I10 ; Other chronic pain G89.29 ; Anxiety associated with depression F41.8 ; COPD ( chronic obstructive pulmonary disease) J44.9 ; Low vitamin D level E55.9 ; Tobacco abuse Z72.0 ; Hypertriglyceridemia E78.1 and Abnormal laboratory test R89.9 [place] [address] [place] [address] 81352- 5019 Aug, Pneumonia J18.9 ; Hypertriglyceridemia E78.1 ; COPD ( chronic obstructive pulmonary disease) J44.9 and Hyperlipidemia E78.5 [place] [id number] [place] [address] 53235- 6029 Aug, Shortness of breath R06.02 ; Anxiety associated with depression F41.8 and Chest pain, unspecified R07.9 [id number] [place] [address] 04351- 8227 Jul, [address] [id number] [place] [address] 46290- 5327 Jun, Anxiety associated with depression F41.8 ; [...] unspecified type R11.2 and Tobacco abuse Z72.0 [id number] [place] [address] 52535- 0062 May, Hyperlipemia E78.5 [id number] [place] [address] 06268- 0450 May, [address] [id number] [place] [address] 05995- 9782 May, Type 2 diabetes mellitus with unspecified complications E11.8 [address] [place] [id number] [place] [address] 19484- 7762 May, [id number] [place] [address] 05844- 0705 May, Anxiety associated with depression F41.8 ; Type 2 diabetes mellitus with unspecified complications E11.8 ; Essential hypertension I10 ; Peripheral neuropathy G62.9 ; Low back pain M54.5 ; Other chronic pain G89.29 ; GERD (gastroesophageal reflux disease) K21.9 ; Insomnia G47.00 ; COPD (chronic obstructive pulmonary disease) J44.9 ; URI (upper respiratory infection) J06.9 and Depression F32.9 [id number] [place] [address] 06488- 2590 May, Low back pain M54.5 ; Anxiety about health F41.8 ; Generalized anxiety disorder F41.1 and Acute stress reaction F43.[address] 96694- 8630 May, [address] 50888- 7517 Apr, Diabetes E11.9 ; Type 2 diabetes mellitus with unspecified complications E11.8 ; Essential hypertension I10 ; Peripheral neuropathy G62.9 ; Low back pain M54.5 ; Other chronic pain G89.29 ; GERD (gastroesophageal reflux disease) K21.9 ; Anxiety associated with depression F41.8 ; Muscle spasm of calf M62.831 ; Insomnia G47.00 and COPD (chronic obstructive pulmonary disease) J44.[address] 32241- 4561 May, [place] [id number] [place] [address] 05926- 7613 May, IMMUNIZATIONS No Known Immunizations SOCIAL HISTORY Never Assessed REASON FOR VISIT refills PLAN OF CARE VITAL SIGNS MEDICATIONS Medication Instructions Dosage Frequency Start Date End Date Duration Status Hydrocodone-Acetaminophen 5-325 MG Orally twice a day 1 tablet as needed 12h 11 Nov, 2017 28 days Active Xanax 0.5 MG [...]
--- OUTSIDE RECORDS SUMMARY | 2018-02-19 17:24 | XMS REPORT | Continuity of Care Document ---
Author Author [facility] Address Unknown Phone Unavailable Allergies Active Description Code Type Severity Reaction Onset Reported/Identified Relationship to Patient Clinical Status Yes duloxetine [id number] Drug Allergy Unknown SUICIDAL THOUGH 07/20/2015 Yes rosuvastatin [id number] Drug Allergy Mild N/A 10/02/2015 Medications There is no data. Problems Date Dx Coded Attending Type Code Diagnosis Diagnosed By 05/27/2013 GABRIELLA FREDERICK DO V03.82 PPV23 (PNEUMOVAX) DX 05/27/2013 GABRIELLA FREDERICK DO V04.81 FLU SHOT 07/20/2015 DEBBI LYNN DO Ot Z01.818 07/20/2015 DEBBI LYNN DO Ot Z12.11 07/20/2015 DEBBI LYNN DO Ot Z01.818 07/20/2015 DEBBI LYNN DO Ot Z12.11 07/21/2015 DEBBI LYNN DO Ot Z01.818 07/21/2015 DEBBI LYNN DO Ot Z12.11 07/21/2015 DEBBI LYNN DO Ot K57.30 DVRTCLOS OF LG INT W/O PERFORATION OR AB 07/21/2015 DEBBI LYNN DO Ot Z12.11 ENCOUNTER FOR SCREENING FOR MALIGNANT NE 10/05/2015 DEBBI LYNN DO Ot Z01.818 ENCOUNTER FOR OTHER PREPROCEDURAL EXAMIN 10/05/2015 DEBBI LYNN DO Ot Z12.11 ENCOUNTER FOR SCREENING FOR MALIGNANT NE 10/05/2015 BRYAN MARTEL MD Ot A41.51 SEPSIS DUE TO ESCHERICHIA COLI [E. COLI] 10/05/2015 BRYAN MARTEL MD Ot D63.8 ANEMIA IN OTHER CHRONIC DISEASES CLASSIF 10/05/2015 BRYAN MARTEL MD Ot E11.9 TYPE 2 DIABETES MELLITUS WITHOUT COMPLIC 10/05/2015 BRYAN MARTEL MD Ot E78.0 PURE HYPERCHOLESTEROLEMIA 10/05/2015 BRYAN MARTEL MD Ot E86.0 DEHYDRATION 10/05/2015 BRYAN MARTEL MD, Ot E87.1 HYPO-OSMOLALITY AND HYPONATREMIA 10/05/2015 BRYAN MARTEL MD Ot I10 ESSENTIAL (PRIMARY) HYPERTENSION 10/05/2015 BRYAN MARTEL MD, Ot J44.9 CHRONIC OBSTRUCTIVE PULMONARY DISEASE, U 10/05/2015 BRYAN MARTEL MD Ot M79.7 FIBROMYALGIA 10/05/2015 BRYAN MARTEL MD, Ot N17.9 ACUTE KIDNEY FAILURE, UNSPECIFIED 10/05/2015 BRYAN MARTEL MD, Ot N39.0 URINARY TRACT INFECTION, SITE NOT SPECIF 10/05/2015 BRYAN MARTEL MD, Ot R65.20 SEVERE SEPSIS WITHOUT SEPTIC SHOCK 10/05/2015 BRYAN MARTEL MD Ot Z23 ENCOUNTER FOR IMMUNIZATION 10/05/2015 BRYAN MARTEL MD, Ot Z87.891 PERSONAL HISTORY OF NICOTINE DEPENDENCE 10/16/2015 DEBBI LYNN DO Ot Z01.818 ENCOUNTER FOR OTHER PREPROCEDURAL EXAMIN 10/16/2015 DEBBI LYNN DO Ot Z12.11 ENCOUNTER FOR SCREENING FOR MALIGNANT NE 10/26/2015 DEBBI LYNN DO Ot Z01.818 ENCOUNTER FOR OTHER PREPROCEDURAL EXAMIN 10/26/2015 DEBBI LYNN DO Ot Z12.11 ENCOUNTER FOR SCREENING FOR MALIGNANT NE 11/12/2015 FRANC DREW FACC, GHASSAN MARINP CCDS Ot E13.9 OTHER SPECIFIED DIABETES MELLITUS WITHOU 11/12/2015 FRANC DREW FACC, GHASSAN MARINP CCDS Ot E78.0 PURE HYPERCHOLESTEROLEMIA 11/12/2015 FRANC DREW FACC, GHASSAN MARINP CCDS Ot I10 ESSENTIAL (PRIMARY) HYPERTENSION 11/12/2015 FRANC DREW FACC, GHASSAN MARINP CCDS Ot J43.8 OTHER EMPHYSEMA 11/12/2015 FRANC DREW FACC, GHASSAN MARINP CCDS Ot R06.02 SHORTNESS OF BREATH 11/12/2015 FRANC DREW FACC, GHASSAN FACP CCDS Ot R07.89 OTHER CHEST PAIN 11/12/2015 FRANC DREW FACC, GHASSAN MARINP CCDS Ot Z72.0 TOBACCO USE 11/13/2015 [place] Rodriguez Ot J43.8 OTHER EMPHYSEMA 11/13/2015 [place] Rodriguez Ot R06.02 SHORTNESS OF BREATH 11/13/2015 [place] Rodriguez Ot R91.8 OTHER NONSPECIFIC ABNORMAL FINDING OF [place] 11/13/2015 [place] Ot Z72.0 TOBACCO USE 11/24/2015 FRANC DREW FACC, GHASSAN FACP CCDS Ot 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) THROMBOCYTHEMIA 11/24/2015 FRANC DREW FACC, ALI FACP CCDS Ot E11.22 TYPE 2 DIABETES MELLITUS W DIABETIC HOTEL OR MOTEL MANAGER 11/24/2015 FRANC DREW FACC, ALI FACP CCDS Ot E66.9 OBESITY, UNSPECIFIED 11/24/2015 FRANC DREW FACC, ALI FACP CCDS Ot E78.0 PURE HYPERCHOLESTEROLEMIA 11/24/2015 FRANC DREW FACC, ALI FACP CCDS Ot I12.9 HYPERTENSIVE CHRONIC KIDNEY DISEASE W ST 11/24/2015 FRANC DREW FACC, ALI FACP CCDS Ot I25.10 ATHSCL HEART DISEASE OF [place] CORONARY 11/24/2015 FRANC DREW FACC, ALI FACP CCDS Ot I25.83 CORONARY ATHEROSCLEROSIS DUE TO LIPID RI 11/24/2015 FRANC DREW FACC, GHASSAN FACP CCDS Ot J44.9 CHRONIC OBSTRUCTIVE PULMONARY DISEASE, U 11/24/2015 FRANC DREW FACC, ALI FACP CCDS Ot N18.2 CHRONIC KIDNEY DISEASE, STAGE 2 (MILD) 11/24/2015 FRANC DREW FACC, ALI FACP CCDS Ot R07.89 OTHER CHEST PAIN 11/24/2015 FRANC DREW FACC, ALI FACP CCDS Ot Z68.41 BODY MASS INDEX (BMI) 40.0-44.9, ADULT 11/24/2015 FRANC DREW FACC, ALI FACP CCDS Ot Z72.0 TOBACCO USE 11/24/2015 FRANC DREW FACC, ALI FACP CCDS Ot Z79.899 OTHER YARD RIGGER (CURRENT) DRUG THERAPY 12/17/2015 FRANC DREW FACC, ALI FACP CCDS Ot 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) THROMBOCYTHEMIA 12/17/2015 FRANC DREW FACC, ALI FACP CCDS Ot E11.22 TYPE 2 DIABETES MELLITUS W DIABETIC HOTEL OR MOTEL MANAGER 12/17/2015 FRANC DREW FACC, ALI FACP CCDS Ot E66.9 OBESITY, UNSPECIFIED 12/17/2015 FRANC DREW FACC, GHASSAN FACP CCDS Ot E78.0 PURE HYPERCHOLESTEROLEMIA 12/17/2015 FRANC DREW FACC, ALI FACP CCDS Ot I12.9 HYPERTENSIVE CHRONIC KIDNEY DISEASE W ST 12/17/2015 FRANC DREW FACC, ALI FACP CCDS Ot I25.10 ATHSCL HEART DISEASE OF [place] CORONARY 12/17/2015 FRANC DREW FACC, ALI FACP CCDS Ot I25.83 CORONARY ATHEROSCLEROSIS DUE TO LIPID RI 12/17/2015 FRANC DREW FACC, GHASSAN FACP CCDS Ot J44.9 CHRONIC OBSTRUCTIVE PULMONARY DISEASE, U 12/17/2015 FRANC DREW FACC, ALI FACP CCDS Ot N18.2 CHRONIC KIDNEY DISEASE, STAGE 2 (MILD) 12/17/2015 FRANC DREW FACC, GHASSAN FACP CCDS Ot R07.89 OTHER CHEST PAIN 12/17/2015 FRANC DREW FACC, GHASSAN FACP CCDS Ot Z68.41 BODY MASS INDEX (BMI) 40.0-44.9, ADULT 12/17/2015 FRANC DREW FACC, GHASSAN FACP CCDS Ot Z72.0 TOBACCO USE 12/17/2015 FRANC DREW FACC, ALI FACP CCDS Ot Z79.899 OTHER ASSISTED (CURRENT) DRUG THERAPY 06/14/2016 [place] DO Ot J43.8 OTHER EMPHYSEMA 06/14/2016 [place] DO Ot R06.02 SHORTNESS OF BREATH 06/14/2016 [place] DO Ot R91.8 OTHER NONSPECIFIC ABNORMAL FINDING OF [place] 06/14/2016 [place] DO Ot Z72.0 TOBACCO USE 06/14/2016 FRANC DREW FACC, GHASSAN FACP CCDS Ot E13.9 OTHER SPECIFIED DIABETES MELLITUS WITHOU 06/14/2016 FRANC DREW FACC, GHASSAN FACP CCDS Ot E78.0 PURE HYPERCHOLESTEROLEMIA 06/14/2016 FRANC DREW FACC, ALI FACP CCDS Ot I10 ESSENTIAL (PRIMARY) HYPERTENSION 06/14/2016 FRANC DREW FACC, ALI FACP CCDS Ot J43.8 OTHER EMPHYSEMA 06/14/2016 FRANC DREW FACC, GHASSAN FACP CCDS Ot R06.02 SHORTNESS OF BREATH 06/14/2016 FRANC DREW [facility], ALI FACP CCDS Ot R07.89 OTHER CHEST PAIN 06/14/2016 FRANC DREW [facility], ALI FACP CCDS Ot Z72.0 TOBACCO USE 06/15/2016 FRANC DREW [facility], ALI FACP CCDS Ot E13.9 OTHER SPECIFIED DIABETES MELLITUS WITHOU 06/15/2016 FRANC DREW [facility], ALI FACP CCDS Ot E78.0 PURE HYPERCHOLESTEROLEMIA 06/15/2016 FRANC DREW [facility], ALI FACP CCDS Ot I10 ESSENTIAL (PRIMARY) HYPERTENSION 06/15/2016 FRANC DREW [facility], ALI FACP CCDS Ot J43.8 OTHER EMPHYSEMA 06/15/2016 FRANC DREW [facility], ALI FACP CCDS Ot R06.02 SHORTNESS OF BREATH 06/15/2016 FRANC DREW [facility], ALI FACP CCDS Ot R07.89 OTHER CHEST PAIN 06/15/2016 FRANC DREW [facility], ALI FACP CCDS Ot Z72.0 TOBACCO USE 06/20/2016 [place] DO Ot J43.8 OTHER EMPHYSEMA 06/20/2016 [place] DO Ot R06.02 SHORTNESS OF BREATH 06/20/2016 [place] DO Ot R91.8 OTHER NONSPECIFIC ABNORMAL FINDING OF [place] 06/20/2016 [place] DO Ot Z72.0 TOBACCO USE 06/20/2016 FRANC DREW [facility], ALI FACP CCDS Ot E13.9 OTHER SPECIFIED DIABETES MELLITUS WITHOU 06/20/2016 FRANC DREW [facility], ALI FACP CCDS Ot E78.0 PURE HYPERCHOLESTEROLEMIA 06/20/2016 FRANC DREW [facility], ALI FACP CCDS Ot I10 ESSENTIAL (PRIMARY) HYPERTENSION 06/20/2016 FRANC DREW [facility], ALI FACP CCDS Ot J43.8 OTHER EMPHYSEMA 06/20/2016 FRANC DREW [facility], ALI FACP CCDS Ot R06.02 SHORTNESS OF BREATH 06/20/2016 FRANC DREW [facility], ALI FACP CCDS Ot R07.89 OTHER CHEST PAIN 06/20/2016 FRANC DREW [facility], ALI FACP CCDS Ot Z72.0 TOBACCO USE 09/05/2016 DEBBI LYNN DO Ot Z01.818 ENCOUNTER FOR OTHER PREPROCEDURAL EXAMIN 09/05/2016 DEBBI LYNN DO Ot Z12.11 ENCOUNTER FOR SCREENING FOR MALIGNANT NE 09/05/2016 FRANC DREW [facility], ALI FACP CCDS Ot E13.9 OTHER SPECIFIED DIABETES MELLITUS WITHOU 09/05/2016 FRANC MARIN, ALI FACP CCDS Ot E78.0 PURE HYPERCHOLESTEROLEMIA 09/05/2016 FRANC DREW [facility], ALI FACP CCDS Ot I10 ESSENTIAL (PRIMARY) HYPERTENSION 09/05/2016 FRANC DREW [facility], ALI FACP CCDS Ot J43.8 OTHER EMPHYSEMA 09/05/2016 FRANC DREW [facility], ALI FACP CCDS Ot R06.02 SHORTNESS OF BREATH 09/05/2016 FRANC DREW [facility], ALI FACP CCDS Ot R07.89 OTHER CHEST PAIN 09/05/2016 FRANC DREW [facility], [facility] FACP CCDS Ot Z72.0 TOBACCO USE 09/05/2016 [place] DO Ot J43.8 OTHER EMPHYSEMA 09/05/2016 [place] DO Ot R06.02 SHORTNESS OF BREATH 09/05/2016 [place] DO Ot R91.8 OTHER NONSPECIFIC ABNORMAL FINDING OF [place] 09/05/2016 [place] DO Ot Z72.0 TOBACCO USE 09/07/2016 KATIE JEFFRIES APRN Ot M25.512 PAIN IN LEFT SHOULDER 09/27/2016 KATIE JEFFRIES APRN Ot M25.512 PAIN IN LEFT SHOULDER 11/10/2016 [place] DO Ot J44.9 CHRONIC OBSTRUCTIVE PULMONARY DISEASE, U 11/10/2016 [place] DO Ot R06.02 SHORTNESS OF BREATH 11/10/2016 [place] DO Ot R91.8 OTHER NONSPECIFIC ABNORMAL FINDING OF [place] 11/10/2016 [place] DO Ot Z72.0 TOBACCO USE 12/04/2016 [place] DO, Ot G47.33 OBSTRUCTIVE SLEEP APNEA (ADULT) (PEDIATR 12/05/2016 [place] DO, Ot G47.33 OBSTRUCTIVE SLEEP APNEA (ADULT) (PEDIATR 02/28/2017 DEBBI LYNN DO Ot E05.90 THYROTOXICOSIS, UNSP WITHOUT THYROTOXIC 02/28/2017 DEBBI LYNN DO Ot E11.9 TYPE 2 DIABETES MELLITUS WITHOUT COMPLIC 02/28/2017 DEBBI LYNN DO Ot E78.00 PURE HYPERCHOLESTEROLEMIA, UNSPECIFIED 02/28/2017 DEBBI LYNN DO Ot F17.210 NICOTINE DEPENDENCE, CIGARETTES, UNCOMPL 02/28/2017 DEBBI LYNN DO Ot G47.33 OBSTRUCTIVE SLEEP APNEA (ADULT) (PEDIATR 02/28/2017 DEBBI LYNN DO Ot I10 ESSENTIAL (PRIMARY) HYPERTENSION 02/28/2017 DEBBI LYNN DO Ot J44.9 CHRONIC OBSTRUCTIVE PULMONARY DISEASE, U 02/28/2017 DEBBI LYNN DO Ot K21.9 GASTRO-ESOPHAGEAL REFLUX DISEASE WITHOUT 02/28/2017 DEBBI LYNN DO Ot K29.70 GASTRITIS, UNSPECIFIED, WITHOUT BLEEDING 02/28/2017 DEBBI LYNN DO Ot M06.9 RHEUMATOID ARTHRITIS, UNSPECIFIED 02/28/2017 DEBBI LYNN DO Ot M79.7 FIBROMYALGIA 02/28/2017 DEBBI LYNN DO Ot Z79.84 YARD RIGGER (CURRENT) USE OF ORAL HYPOGLYC 02/28/2017 DEBBI LYNN DO Ot Z79.899 OTHER YARD RIGGER (CURRENT) DRUG THERAPY 03/02/2017 DEBBI LYNN DO Ot E05.90 THYROTOXICOSIS, UNSP WITHOUT THYROTOXIC 03/02/2017 DEBBI LYNN DO Ot E11.9 TYPE 2 DIABETES MELLITUS WITHOUT COMPLIC 03/02/2017 DEBBI LYNN DO Ot E78.00 PURE HYPERCHOLESTEROLEMIA, UNSPECIFIED 03/02/2017 DEBBI LYNN DO Ot F17.210 NICOTINE DEPENDENCE, CIGARETTES, UNCOMPL 03/02/2017 DEBBI LYNN DO Ot G47.33 OBSTRUCTIVE SLEEP APNEA (ADULT) (PEDIATR 03/02/2017 DEBBI LYNN DO Ot I10 ESSENTIAL (PRIMARY) HYPERTENSION 03/02/2017 DEBBI LYNN DO Ot J44.9 CHRONIC OBSTRUCTIVE PULMONARY DISEASE, U 03/02/2017 DEBBI LYNN DO Ot K21.9 GASTRO-ESOPHAGEAL REFLUX DISEASE WITHOUT 03/02/2017 DEBBI LYNN DO Ot K29.70 GASTRITIS, UNSPECIFIED, WITHOUT BLEEDING 03/02/2017 DEBBI LYNN DO Ot M06.9 RHEUMATOID ARTHRITIS, UNSPECIFIED 03/02/2017 DEBBI LYNN DO Ot M79.7 FIBROMYALGIA 03/02/2017 DEBBI LYNN DO Ot Z79.84 ASSISTED (CURRENT) USE OF ORAL HYPOGLYC 03/02/2017 DEBBI LYNN DO Ot Z79.899 OTHER ASSISTED (CURRENT) DRUG THERAPY 03/08/2017 DEBBI LYNN DO Ot K21.9 GASTRO-ESOPHAGEAL REFLUX DISEASE WITHOUT 03/08/2017 DEBBI LYNN DO Ot R16.0 HEPATOMEGALY, NOT ELSEWHERE CLASSIFIED 03/10/2017 DEBBI LYNN DO Ot E05.90 THYROTOXICOSIS, UNSP WITHOUT THYROTOXIC 03/10/2017 DEBBI LYNN DO Ot E11.9 TYPE 2 DIABETES MELLITUS WITHOUT COMPLIC 03/10/2017 DEBBI LYNN DO Ot E78.00 PURE HYPERCHOLESTEROLEMIA, UNSPECIFIED 03/10/2017 DEBBI LYNN DO Ot F17.210 NICOTINE DEPENDENCE, CIGARETTES, UNCOMPL 03/10/2017 DEBBI LYNN DO Ot G47.33 OBSTRUCTIVE SLEEP APNEA (ADULT) (PEDIATR 03/10/2017 DEBBI LYNN DO Ot I10 ESSENTIAL (PRIMARY) HYPERTENSION 03/10/2017 DEBBI LYNN DO Ot J44.9 CHRONIC OBSTRUCTIVE PULMONARY DISEASE, U 03/10/2017 DEBBI LYNN DO Ot K21.9 GASTRO-ESOPHAGEAL REFLUX DISEASE WITHOUT 03/10/2017 DEBBI LYNN DO Ot K29.70 GASTRITIS, UNSPECIFIED, WITHOUT BLEEDING 03/10/2017 DEBBI LYNN DO Ot M06.9 RHEUMATOID ARTHRITIS, UNSPECIFIED 03/10/2017 DEBBI LYNN DO Ot M79.7 FIBROMYALGIA 03/10/2017 DEBBI LYNN DO Ot Z79.84 ASSISTED (CURRENT) USE OF ORAL HYPOGLYC 03/10/2017 DEBBI LYNN DO Ot Z79.899 OTHER YARD RIGGER (CURRENT) DRUG THERAPY 03/13/2017 DEBBI LYNN DO Ot K21.9 GASTRO-ESOPHAGEAL REFLUX DISEASE WITHOUT 03/13/2017 DEBBI LYNN DO Ot R16.0 HEPATOMEGALY, NOT ELSEWHERE CLASSIFIED 03/23/2017 DEBBI LYNN DO Ot K21.9 GASTRO-ESOPHAGEAL REFLUX DISEASE WITHOUT 03/23/2017 DEBBI LYNN DO Ot R16.0 HEPATOMEGALY, NOT ELSEWHERE CLASSIFIED 04/21/2017 DEBBI LYNN DO Ot E05.90 THYROTOXICOSIS, UNSP WITHOUT THYROTOXIC 04/21/2017 DEBBI LYNN DO Ot E11.9 TYPE 2 DIABETES MELLITUS WITHOUT COMPLIC 04/21/2017 DEBBI LYNN DO Ot E78.00 PURE HYPERCHOLESTEROLEMIA, UNSPECIFIED 04/21/2017 DEBBI LYNN DO Ot F17.210 NICOTINE DEPENDENCE, CIGARETTES, UNCOMPL 04/21/2017 DEBBI LYNN DO Ot G47.33 OBSTRUCTIVE SLEEP APNEA (ADULT) (PEDIATR 04/21/2017 DEBBI LYNN DO Ot I10 ESSENTIAL (PRIMARY) HYPERTENSION 04/21/2017 DEBBI LYNN DO Ot J44.9 CHRONIC OBSTRUCTIVE PULMONARY DISEASE, U 04/21/2017 DEBBI LYNN DO Ot K21.9 GASTRO-ESOPHAGEAL REFLUX DISEASE WITHOUT 04/21/2017 DEBBI LYNN DO Ot K29.70 GASTRITIS, UNSPECIFIED, WITHOUT BLEEDING 04/21/2017 DEBBI LYNN DO Ot M06.9 RHEUMATOID ARTHRITIS, UNSPECIFIED 04/21/2017 DEBBI LYNN DO Ot M79.7 FIBROMYALGIA 04/21/2017 DEBBI LYNN DO Ot Z79.84 ASSISTED (CURRENT) USE OF ORAL HYPOGLYC 04/21/2017 DEBBI LYNN DO Ot Z79.899 OTHER YARD RIGGER (CURRENT) DRUG THERAPY 04/26/2017 LORI ALICEA MD Ot E03.9 HYPOTHYROIDISM, UNSPECIFIED 04/26/2017 LORI ALICEA MD Ot E11.40 TYPE 2 DIABETES MELLITUS WITH DIABETIC N 04/26/2017 LORI ALICEA MD Ot E78.5 HYPERLIPIDEMIA, UNSPECIFIED 04/26/2017 LORI ALICEA MD Ot F32.9 MAJOR DEPRESSIVE DISORDER, SINGLE EPISOD 04/26/2017 LORI ALICEA MD Ot F41.9 ANXIETY DISORDER, UNSPECIFIED 04/26/2017 LORI ALICEA MD, Ot G47.33 OBSTRUCTIVE SLEEP APNEA (ADULT) (PEDIATR 04/26/2017 LORI ALICEA MD Ot I10 ESSENTIAL (PRIMARY) HYPERTENSION 04/26/2017 LORI ALICEA MD, Ot J44.9 CHRONIC OBSTRUCTIVE PULMONARY DISEASE, U 04/26/2017 LORI ALICEA MD Ot K21.9 GASTRO-ESOPHAGEAL REFLUX DISEASE WITHOUT 04/26/2017 LORI ALICEA MD, Ot M06.9 RHEUMATOID ARTHRITIS, UNSPECIFIED 04/26/2017 LORI ALICEA MD, Ot M75.102 UNSP ROTATR-CUFF TEAR/RUPTR OF LEFT SHOU 04/26/2017 LORI ALICEA MD, Ot M79.7 FIBROMYALGIA 04/26/2017 LORI ALICEA MD, Ot Z79.82 YARD RIGGER (CURRENT) USE OF ASPIRIN 04/26/2017 OLRI ALICEA MD, Ot Z79.84 ASSISTED (CURRENT) USE OF ORAL HYPOGLYC 04/26/2017 LORI ALICEA MD, Ot Z79.899 OTHER YARD RIGGER (CURRENT) DRUG THERAPY 04/26/2017 LORI ALICEA MD, Ot Z87.891 PERSONAL HISTORY OF NICOTINE DEPENDENCE 04/27/2017 LORI ALICEA MD, Ot E03.9 HYPOTHYROIDISM, UNSPECIFIED 04/27/2017 LORI ALICEA MD, Ot E11.40 TYPE 2 DIABETES MELLITUS WITH DIABETIC N 04/27/2017 LORI ALICEA MD, Ot E78.5 HYPERLIPIDEMIA, UNSPECIFIED 04/27/2017 LORI ALICEA MD, Ot F32.9 MAJOR DEPRESSIVE DISORDER, SINGLE EPISOD 04/27/2017 LORI ALICEA MD, Ot F41.9 ANXIETY DISORDER, UNSPECIFIED 04/27/2017 LORI ALICEA MD, Ot G47.33 OBSTRUCTIVE SLEEP APNEA (ADULT) (PEDIATR 04/27/2017 LORI ALICEA MD, Ot I10 ESSENTIAL (PRIMARY) HYPERTENSION 04/27/2017 LORI ALICEA MD, Ot J44.9 CHRONIC OBSTRUCTIVE PULMONARY DISEASE, U 04/27/2017 LORI ALICEA MD, Ot K21.9 GASTRO-ESOPHAGEAL REFLUX DISEASE WITHOUT 04/27/2017 LORI ALICEA MD, Ot M06.9 RHEUMATOID ARTHRITIS, UNSPECIFIED 04/27/2017 LORI ALICEA MD, Ot M75.102 UNSP ROTATR-CUFF TEAR/RUPTR OF LEFT SHOU 04/27/2017 LORI ALICEA MD, Ot M79.7 FIBROMYALGIA 04/27/2017 LORI ALICEA MD, Ot Z79.82 YARD RIGGER (CURRENT) USE OF ASPIRIN 04/27/2017 LORI ALICEA MD, Ot Z79.84 ASSISTED (CURRENT) USE OF ORAL HYPOGLYC 04/27/2017 LORI ALICEA MD, Ot Z79.899 OTHER YARD RIGGER (CURRENT) DRUG THERAPY 04/27/2017 LORI ALICEA MD Ot Z87.891 PERSONAL HISTORY OF NICOTINE DEPENDENCE 09/03/2017 KATIE JEFFRIES CAMI Ot R59.0 LOCALIZED ENLARGED LYMPH NODES 09/03/2017 KATIE JEFFRIES CAMI Ot Z79.899 OTHER YARD RIGGER (CURRENT) DRUG THERAPY 10/27/2017 KATIE JEFFRIES FRONT OF HOUSE MANAGER Ot E11.22 TYPE 2 DIABETES MELLITUS W DIABETIC HOTEL OR MOTEL MANAGER 10/27/2017 KATIE JEFFRIES FRONT OF HOUSE MANAGER Ot N18.9 CHRONIC KIDNEY DISEASE, UNSPECIFIED 11/09/2017 KATIE JEFFRIES CAMI Ot E11.22 TYPE 2 DIABETES MELLITUS W DIABETIC HOTEL OR MOTEL MANAGER 11/09/2017 KATIE JEFFRIES FRONT OF HOUSE MANAGER Ot N18.9 CHRONIC KIDNEY DISEASE, UNSPECIFIED Procedures There is no data. Results Test Result Range CBC With Differential/Platelet - 04/29/16 15:25 WBC 12.1 x10E3/uL 3.4-10.8 RBC 4.78 x10E6/uL 3.77-5.28 Hemoglobin 12.6 g/dL 11.1-15.9 Hematocrit 38.8 % 34.0-46.6 MCV 81 fL 79-97 MCH 26.4 pg 26.6-33.0 MCHC 32.5 g/dL 31.5-35.7 RDW 15.4 % 12.3-15.4 Platelets 459 x10E3/uL 150-379 Neutrophils 58 % Lymphs 31 % Monocytes 8 % Eos 3 % Basos 0 % Neutrophils (Absolute) 7.0 x10E3/uL 1.4-7.0 Lymphs (Absolute) 3.7 x10E3/uL 0.7-3.1 Monocytes(Absolute) 0.9 x10E3/uL 0.1-0.9 Eos (Absolute) 0.4 x10E3/uL 0.0-0.4 Baso (Absolute) 0.0 x10E3/uL 0.0-0.2 Immature Granulocytes 0 % Immature Grans (Abs) 0.0 x10E3/uL 0.0-0.1 Comp. Metabolic Panel (14) - 04/29/16 15:25 Glucose, Serum 86 mg/dL 65-99 BUN 11 mg/dL 6-24 Creatinine, Serum 1.12 mg/dL 0.57-1.00 eGFR If NonAfricn Am 55 mL/min/1.73 >59 eGFR If Africn Am 64 mL/min/1.73 >59 BUN/Creatinine Ratio 10 9-23 Sodium, Serum 139 mmol/L 136-144 Potassium, Serum 5.2 mmol/L 3.5-5.2 Chloride, Serum 99 mmol/L 97-106 Carbon Dioxide, Total 22 mmol/L 18-29 Calcium, Serum 9.3 mg/dL 8.7-10.2 Protein, Total, Serum 7.6 g/dL 6.0-8.5 Albumin, Serum 4.3 g/dL 3.5-5.5 Globulin, Total 3.3 g/dL 1.5-4.5 A/G Ratio 1.3 1.1-2.5 Bilirubin, Total <0.2 mg/dL 0.0-1.2 Alkaline Phosphatase, S 69 IU/L 39-117 AST (SGOT) 19 IU/L 0-40 ALT (SGPT) 11 IU/L 0-32 Lipid Panel - 04/29/16 15:25 Cholesterol, Total 185 mg/dL 100-199 Triglycerides 311 mg/dL 0-149 HDL Cholesterol 37 mg/dL >39 VLDL Cholesterol Jorge Luis 62 mg/dL 5-40 LDL Cholesterol Calc 86 mg/dL 0-99 Prothrombin Time (PT) - 04/29/16 15:25 INR TNP Prothrombin Time TNP Rheumatoid Arthritis Factor - 04/29/16 15:25 RA Latex Turbid. <10.0 IU/mL 0.0-13.9 Thyroid [place] Profile - 04/29/16 15:25 TSH 0.665 uIU/mL 0.450-4.500 Sedimentation Rate-Westergren - 04/29/16 15:25 Sedimentation Rate-Westergren 63 mm/hr 0-40 Request Problem - 04/29/16 15:25 Request Problem TNP CBC With Differential/Platelet - 08/11/16 17:32 WBC 11.7 x10E3/uL 3.4-10.8 RBC 4.54 x10E6/uL 3.77-5.28 Hemoglobin 12.6 g/dL 11.1-15.9 Hematocrit 38.6 % 34.0-46.6 MCV 85 fL 79-97 MCH 27.8 pg 26.6-33.0 MCHC 32.6 g/dL 31.5-35.7 RDW 17.3 % 12.3-15.4 Platelets 400 x10E3/uL 150-379 Neutrophils 62 % Lymphs 26 % Monocytes 9 % Eos 3 % Basos 0 % Neutrophils (Absolute) 7.1 x10E3/uL 1.4-7.0 Lymphs (Absolute) 3.1 x10E3/uL 0.7-3.1 Monocytes(Absolute) 1.1 x10E3/uL 0.1-0.9 Eos (Absolute) 0.3 x10E3/uL 0.0-0.4 Baso (Absolute) 0.0 x10E3/uL 0.0-0.2 Immature Granulocytes 0 % Immature Grans (Abs) 0.0 x10E3/uL 0.0-0.1 Comp. Metabolic Panel (14) - 08/11/16 17:32 Glucose, Serum 135 mg/dL 65-99 BUN 13 mg/dL 6-24 Creatinine, Serum 1.02 mg/dL 0.57-1.00 eGFR If NonAfricn Am 62 mL/min/1.73 >59 eGFR If Africn Am 72 mL/min/1.73 >59 BUN/Creatinine Ratio 13 9-23 Sodium, Serum 137 mmol/L 134-144 Potassium, Serum 4.5 mmol/L 3.5-5.2 Chloride, Serum 96 mmol/L 96-106 Carbon Dioxide, Total 26 mmol/L 18-29 Calcium, Serum 9.2 mg/dL 8.7-10.2 Protein, Total, Serum 7.4 g/dL 6.0-8.5 Albumin, Serum 4.4 g/dL 3.5-5.5 Globulin, Total 3.0 g/dL 1.5-4.5 A/G Ratio 1.5 1.1-2.5 Bilirubin, Total <0.2 mg/dL 0.0-1.2 Alkaline Phosphatase, S 60 IU/L 39-117 AST (SGOT) 12 IU/L 0-40 ALT (SGPT) 11 IU/L 0-32 Arterial blood gas measurement - 10/27/16 11:43 Blood pCO2 43 mm[Hg] 35-45 Blood pO2 68 mm[Hg] 79-93 Arterial blood bicarbonate measurement (moles/volume) 24 mmol/L 23-27 Arterial blood base excess by calculation -0.8 mmol/L - 2.5-2.5 Arterial blood oxygen saturation measurement 95 % 94-100 * Inhaled oxygen flow rate ROOM AIR NRG Arterial blood pH measurement with patient temperature correction 7.36 7.37-7.43 Arterial blood carbon dioxide, total measurement (moles/volume) 25.4 mmol/L 21.0-31.0 Body site R RADIAL NRG Assessment of wrist artery patency prior to arterial puncture YES- POS NRG Setting of ventilation mode NO NRG Measurement of body temperature 98.0 NRG CBC With Differential/Platelet - 02/07/17 17:11 WBC 11.4 x10E3/uL 3.4-10.8 RBC 4.33 x10E6/uL 3.77-5.28 Hemoglobin 11.8 g/dL 11.1-15.9 Hematocrit 35.9 % 34.0-46.6 MCV 83 fL 79-97 MCH 27.3 pg 26.6-33.0 MCHC 32.9 g/dL 31.5-35.7 RDW 16.1 % 12.3-15.4 Platelets 403 x10E3/uL 150-379 Neutrophils 62 % Lymphs 21 % Monocytes 10 % Eos 7 % Basos 0 % Neutrophils (Absolute) 7.1 x10E3/uL 1.4-7.0 Lymphs (Absolute) 2.4 x10E3/uL 0.7-3.1 Monocytes(Absolute) 1.1 x10E3/uL 0.1-0.9 Eos (Absolute) 0.7 x10E3/uL 0.0-0.4 Baso (Absolute) 0.1 x10E3/uL 0.0-0.2 Immature Granulocytes 0 % Immature Grans (Abs) 0.0 x10E3/uL 0.0-0.1 Comp. Metabolic Panel (14) - 02/07/17 17:11 Glucose, Serum 110 mg/dL 65-99 BUN 18 mg/dL 6-24 Creatinine, Serum 1.44 mg/dL 0.57-1.00 eGFR If NonAfricn Am 41 mL/min/1.73 >59 eGFR If Africn Am 47 mL/min/1.73 >59 BUN/Creatinine Ratio 13 9-23 Sodium, Serum 137 mmol/L 134-144 Potassium, Serum 4.9 mmol/L 3.5-5.2 Chloride, Serum 94 mmol/L 96-106 Carbon Dioxide, Total 23 mmol/L 18-29 Calcium, Serum 9.4 mg/dL 8.7-10.2 Protein, Total, Serum 7.5 g/dL 6.0-8.5 Albumin, Serum 4.1 g/dL 3.5-5.5 Globulin, Total 3.4 g/dL 1.5-4.5 A/G Ratio 1.2 1.2-2.2 Bilirubin, Total <0.2 mg/dL 0.0-1.2 Alkaline Phosphatase, S 58 IU/L 39-117 AST (SGOT) 19 IU/L 0-40 ALT (SGPT) 19 IU/L 0-32 CMP - 02/07/17 17:11 Glucose, Serum 110 mg/dL 65-99 BUN 18 mg/dL 6-24 Creatinine, Serum 1.44 mg/dL 0.57-1.00 eGFR If NonAfricn Am 41 mL/min/1.73 >59 eGFR If Africn Am 47 mL/min/1.73 >59 BUN/Creatinine Ratio 13 9-23 Sodium, Serum 137 mmol/L 134-144 Potassium, Serum 4.9 mmol/L 3.5-5.2 Chloride, Serum 94 mmol/L 96-106 Carbon Dioxide, Total 23 mmol/L 18-29 Calcium, Serum 9.4 mg/dL 8.7-10.2 Protein, Total, Serum 7.5 g/dL 6.0-8.5 Albumin, Serum 4.1 g/dL 3.5-5.5 Globulin, Total 3.4 g/dL 1.5-4.5 A/G Ratio 1.2 1.2-2.2 Bilirubin, Total <0.2 mg/dL 0.0-1.2 Alkaline Phosphatase, S 58 IU/L 39-117 AST (SGOT) 19 IU/L 0-40 ALT (SGPT) 19 IU/L 0-32 Capillary blood glucose measurement by glucometer (mass/volume) - 02/28/17 10: 00 Capillary blood glucose measurement by glucometer (mass/volume) 151 mg/dL 70-110 CBC With Differential/Platelet - 03/24/17 12:40 WBC 9.4 x10E3/uL 3.4-10.8 RBC 4.16 x10E6/uL 3.77-5.28 Hemoglobin 11.2 g/dL 11.1-15.9 Hematocrit 33.9 % 34.0-46.6 MCV 82 fL 79-97 MCH 26.9 pg 26.6-33.0 MCHC 33.0 g/dL 31.5-35.7 RDW 16.2 % 12.3-15.4 Platelets 645 x10E3/uL 150-379 Neutrophils 61 % Not Estab. Lymphs 24 % Not Estab. Monocytes 10 % Not Estab. Eos 2 % Not Estab. Basos 1 % Not Estab. Neutrophils (Absolute) 5.8 x10E3/uL 1.4-7.0 Lymphs (Absolute) 2.2 x10E3/uL 0.7-3.1 Monocytes(Absolute) 1.0 x10E3/uL 0.1-0.9 Eos (Absolute) 0.2 x10E3/uL 0.0-0.4 Baso (Absolute) 0.1 x10E3/uL 0.0-0.2 Immature Granulocytes 2 % Not Estab. Immature Grans (Abs) 0.2 x10E3/uL 0.0-0.1 Renal Panel (10) - 03/24/17 12:40 Glucose, Serum 80 mg/dL 65-99 BUN 13 mg/dL 6-24 Creatinine, Serum 1.02 mg/dL 0.57-1.00 eGFR If NonAfricn Am 62 mL/min/1.73 >59 eGFR If Africn Am 71 mL/min/1.73 >59 BUN/Creatinine Ratio 13 9-23 Sodium, Serum 142 mmol/L 134-144 Potassium, Serum 5.3 mmol/L 3.5-5.2 Chloride, Serum 95 mmol/L 96-106 Carbon Dioxide, Total 25 mmol/L 18-29 Calcium, Serum 9.7 mg/dL 8.7-10.2 Albumin, Serum 4.1 g/dL 3.5-5.5 Phosphorus, Serum 3.6 mg/dL 2.5-4.5 Prot+CreatU (Random) - 03/24/17 12:40 Creatinine, Urine 48.6 mg/dL Not Estab. Protein,Total,Urine 5.1 mg/dL Not Estab. Protein/Creat Ratio 105 mg/g creat 0-200 Urine Culture, Routine - 03/24/17 12:40 Urine Culture, Routine Note RENAL PROFILE - 03/24/17 12:40 Glucose, Serum 80 mg/dL 65-99 BUN 13 mg/dL 6-24 Creatinine, Serum 1.02 mg/dL 0.57-1.00 eGFR If NonAfricn Am 62 mL/min/1.73 >59 eGFR If Africn Am 71 mL/min/1.73 >59 BUN/Creatinine Ratio 13 9-23 Sodium, Serum 142 mmol/L 134-144 Potassium, Serum 5.3 mmol/L 3.5-5.2 Chloride, Serum 95 mmol/L 96-106 Carbon Dioxide, Total 25 mmol/L 18-29 Calcium, Serum 9.7 mg/dL 8.7-10.2 Albumin, Serum 4.1 g/dL 3.5-5.5 Phosphorus, Serum 3.6 mg/dL 2.5-4.5 Methicillin resistant Staphylococcus aureus (MRSA) screening culture - 14:02 MRSA SCREEN RESULT MRSA ISOLATED NRG Capillary blood glucose measurement by glucometer (mass/volume) - 04/26/17 10: 37 Capillary blood glucose measurement by glucometer (mass/volume) 189 mg/dL 70-110 THYROID ANALYZER - 05/03/17 11:00 TSH 0.68 mIU/L 0.40-4.50 A1C - 08/14/17 15:27 HEMOGLOBIN A1c 6.8 % of total Hgb <5.7 Encounters ACCT No. Visit Date/Time Discharge Status Pt. Type Provider Facility Loc./Unit Complaint [id number] 05/27/2013 14:04:00 05/27/2013 23:59:59 CLS Outpatient FREDERICK GABRIELLA STEWART [id number] 08/12/2016 08:42:00 Document Registration [id number] 10/26/2017 13:20:00 10/26/2017 23:59:59 CLS Outpatient KATIE JEFFRIES APRN [facility] RAD E11.8 TYPE 2 DIABETES MELLITUS W/ UNSPECIFIED COMP [id number] 09/01/2017 12:17:00 09/01/2017 23:59:59 CLS Outpatient KATIE JEFFRIES APRN [facility] RAD R59.0 ENLARGED LYMPH NODES IN ARMPIT [id number] 04/26/2017 10:29:00 04/26/2017 16:10:00 DIS Outpatient LORI ALICEA MD [facility] SDC LEFT SHOULDER TORN ROTATOR CUFF [id number] 04/20/2017 13:42:00 04/20/2017 14:05:00 DIS Outpatient LORI ALICEA MD [facility] PREOP LEFT SHOULDER TORN ROTATOR CUFF [id number] 03/07/2017 08:22:00 03/07/2017 23:59:59 CLS Outpatient DEBBI LYNN DO [facility] RAD ABD PAIN R10.11 [id number] 02/28/2017 09:36:00 02/28/2017 12:35:00 DIS Outpatient DEBBI LYNN DO [facility] ENDO REFLUX [id number] 02/23/2017 05:40:00 02/23/2017 14:26:00 DIS Outpatient DEBBI LYNN DO [facility] PREOP REFLUX [id number] 12/03/2016 21:14:00 12/04/2016 06:18:00 DIS Outpatient LAKE HERNÁNDEZ DO [facility] SLEEP DALTON,SNORING [id number] 10/27/2016 11:17:00 10/27/2016 23:59:59 CLS Outpatient LAKE HERNÁNDEZ DO [facility] RAD J44.9 R91.8 R06.02 Z72.0 [id number] 09/07/2016 15:21:00 09/07/2016 23:59:59 CLS Outpatient KATIE JEFFRIES APRN [facility] RAD LT ANTERIOR SHOULDER PAIN [id number] 11/24/2015 06:44:00 11/24/2015 12:15:00 DIS Outpatient GHASSAN BRUNER MD, FACC, FACP CCDS [facility] CATH CHEST PAIN, SOB, DM, HTN, HL [id number] 11/12/2015 13:26:00 11/12/2015 23:59:59 CLS Outpatient GHASSAN BRUNER MD, FACC, FACP CCDS [facility] CARD CHEST DISCOMFORT,SOB,DIABETES,HTN, [id number] 11/11/2015 14:31:00 11/11/2015 23:59:59 CLS Outpatient BETTY STEWART LAKE Jennifer [facility] RAD COPD, LUNG NODULES [id number] 10/02/2015 20:06:00 10/05/2015 14:00:00 DIS Inpatient DELONTE DREW, BRYAN Olivarez [facility] 4TH ACUTE RENAL FAILURE,COPD EXACERBATION,HYPONATREMIA [id number] 07/21/2015 07:47:00 07/21/2015 23:59:59 CLS Outpatient DEBBI LYNN DO [facility] SDC SCREENING [id number] 07/20/2015 12:42:00 07/20/2015 23:59:59 CLS Outpatient DEBBI LYNN DO [facility] PREOP COLONOSCOPY [id number] 11/26/2014 15:31:00 11/26/2014 23:59:59 CLS Outpatient JULIA DREW, DORY Oswald (DDU) [facility] RT [id number] 09/18/2013 11:17:00 09/18/2013 23:59:59 CLS Outpatient [id number] 11/26/2014 15:32:05 ACT Document Registration [id number] 02/08/2017 12:09:00 Document Registration [id number] 03/26/2017 00:05:00 Document Registration [id number] 05/02/2016 13:05:00 Document Registration [id number] 01/08/2018 10:00:00 01/08/2018 23:59:59 CLS Outpatient KATIE JEFFRIES [facility] [id number] 08/14/2017 13:20:00 Document Registration [id number] 05/03/2017 10:40:00 Document Registration [id number] 03/24/2017 11:20:00 Document Registration [id number] 02/07/2017 15:40:00 Document Registration
[2018-02-19] MEDS: ENOXAPARIN 40 MG/0.4 ML (LOVENOX) SYR SC SCH (17:35)
[2018-02-19] MEDS: inSUlin ASPART (NovoLOG) 1 UNIT/0.01 ML (CHARGE PER UNIT) SC SCH ×2 (18:40→22:02)
[2018-02-19] MEDS: RT-ALBUTEROL/IPRATROPIUM 3 ML (DUONEB) VIAL IH SCH ×2 (19:15→22:29)
[2018-02-19 19:27] VITALS: BP 122/58
[2018-02-19] MEDS ORDERED: PIPERACILLIN/TAZO 4.5 GM/NS 100 ML IV SCH ×2 (22:00)
[2018-02-19] MEDS: PIPERACILLIN/TAZO 4.5 GM/NS 100 ML IV SCH ×2 (23:45)
[2018-02-20] VITALS: BP 131/63
[2018-02-20] MEDS: RT-ALBUTEROL/IPRATROPIUM 3 ML (DUONEB) VIAL IH SCH ×4 (02:32→14:29)
[2018-02-20 04:00] VITALS: BP 137/74
[2018-02-20 04:51] LABS: BASOPHILS % (AUTO) 0 % (0-10); EOSINOPHILS # (AUTO) 0.2 10^3/uL (0.0-0.3); EOSINOPHILS % (AUTO) 3 % (0-10); HEMATOCRIT 34 % (35-52); HEMOGLOBIN 10.7 G/DL (11.5-16.0); LYMPHOCYTES # (AUTO) 2.5 X 10^3 (1.0-4.0); LYMPHOCYTES % (AUTO) 29 % (12-44); MEAN CORPUSCULAR HEMOGLOBIN 25 PG (25-34); MEAN CORPUSCULAR HGB CONC 31 G/DL (32-36); MEAN CORPUSCULAR VOLUME 80 FL (80-99); MEAN PLATELET VOLUME 10.6 FL (7.4-10.4); MONOCYTES # (AUTO) 0.9 X 10^3 (0.0-1.0); MONOCYTES % (AUTO) 11 % (0-12); NEUTROPHILS # (AUTO) 4.8 X 10^3 (1.8-7.8); NEUTROPHILS % (AUTO) 57 % (42-75); PLATELET COUNT 375 10^3/uL (130-400); RED BLOOD COUNT 4.26 10^6/uL (4.35-5.85); RED CELL DISTRIBUTION WIDTH 17.7 % (10.0-14.5); WHITE BLOOD COUNT 8.5 10^3/uL (4.3-11.0)
[2018-02-20 05:11] LABS: CALCIUM 9.3 MG/DL (8.5-10.1); CREATININE SERUM 1.22 MG/DL (0.60-1.30); MAGNESIUM 1.9 MG/DL (1.8-2.4); PHOSPHORUS 3.8 MG/DL (2.3-4.7); POTASSIUM 3.7 MMOL/L (3.6-5.0)
[2018-02-20] MEDS: inSUlin ASPART (NovoLOG) 1 UNIT/0.01 ML (CHARGE PER UNIT) SC SCH ×5 (05:28→16:03)
[2018-02-20] MEDS: PIPERACILLIN/TAZO 4.5 GM/NS 100 ML IV SCH ×4 (06:43→16:02)
--- NOTE | 2018-02-20 06:45 | Pulmonary Consultation ---
History of Present Illness History of Present Illness Date of Consultation 02/20/18 06:40 Time Seen by Provider: 06:42 Date of Admission History of Present Illness 57yo with hx of COPD and DALTON directly admitted from my office yesterday secondary to worsening persistent SOB worse with exertion, fever, productive yellow/green sputum. She had fever, NS, and chills. Fever of 102 at home the night prior to admission. She has had worsening chest congestion. She states she has been waking up SOB, gasping for air. SHe has not been able to use her CPAP secondary to nasal congestion. She has had similar episodes in the past. Allergies and Home Medications Allergies Coded Allergies: duloxetine (Verified Allergy, Unknown, SUICIDAL THOUGHTS, SEVERE DEPRESSION, 07/20/15) rosuvastatin (Verified Adverse Reaction, Mild, 10/02/15) Patient states she "gets very angry" while taking Home Medications Albuterol Sulfate 2.5 Mg/3 Ml Vial.neb, 2.5 MG NEB TID PRN for WHEEZING, ( Reported) Albuterol Sulfate 1 Puff Puff, 2 PUFF IH Q4H PRN for WHEEZING, (Reported) 1 PUFF = 90 MCG Alprazolam 0.5 Mg Tablet, 0.5 MG PO TID, (Reported) Aspirin 325 Mg Tablet, 325 MG PO DAILY, (Reported) Baclofen 10 Mg Tablet, 10 MG PO BID PRN for MUSCLE SPASMS, (Reported) Benazepril HCl 5 Mg Tablet, 5 MG PO DAILY, (Reported) Cefdinir 300 Mg Capsule, 300 MG PO BID Prescribed by: GUSTAVO LARA on 02/20/18 1027 Cholecalciferol (Vitamin D3) 1,000 Unit Capsule, 5,000 UNIT PO DAILY, (Reported) Fenofibrate 160 Mg Tablet, 160 MG PO DAILY, (Reported) Ferrous Sulfate 325 Mg Tablet.dr, 650 MG PO DAILY, (Reported) Fluticasone/Salmeterol 1 Each Blst.w.dev, 1 PUFF IH BID, (Reported) Gabapentin 300 Mg Capsule, 300 MG PO TID, (Reported) Hydrocodone/Acetaminophen 1 Each Tablet, 2 TAB PO DAILY, (Reported) Insulin Aspart 300 Units/3 Ml Solution, 22 UNITS SC AC, (Reported) Insulin Detemir 100 Unit/1 Ml Insuln.pen, 35 UNITS SC BID, (Reported) Liraglutide 0.6 Mg/0.1 Ml Pen.injctr, 0.6-1.2 MG SC HS, (Reported) Metoprolol Tartrate 25 Mg Tablet, 25 MG PO HS, (Reported) Montelukast Sodium 10 Mg Tablet, 10 MG PO HS, (Reported) [place]-3S/Dha/Epa/Fish Oil 1 Each Capsule.dr, 1 CAP PO DAILY, (Reported) Pantoprazole Sodium 40 Mg Tablet.dr, 40 MG PO DAILY, (Reported) Paroxetine HCl 20 Mg Tablet, 20 MG PO BID, (Reported) Polyethylene Glycol 3350 255 Gm Powder, 17 GM PO DAILY PRN for CONSTIPATION-2ND LINE, (Reported) Prednisone 10 Mg Tab, 0 PO UD Take 4 tabs (40mg) daily, decrease by 1 tab (10mg) daily. Prescribed by: GUSTAVO LARA on 02/20/18 1027 Psyllium Husk 0.52 Gm Capsule, 0.52 GM PO BID, (Reported) Tiotropium [place] 1 Inh Aerp, 1 CAP IH DAILY, (Reported) Torsemide 20 Mg Tablet, 20 MG PO DAILY, (Reported) Past Oyngolk-Vxfmzg-Kotczi Hx Patient Social History Alcohol Use: Denies Use Recreational Drug Use: No Smoking Status: Former Smoker Type Used: Cigarettes Former Smoker, Quit: Mar 14, 2017 Recent Foreign Travel: No Contact w/Someone Who Travel: No Recent Infectious Disease Expo: No Recent Hopitalizations: No Immunizations Up To Date Tetanus Booster (TDap): Unknown PED Vaccines UTD: Yes Date of Pneumonia Vaccine: Sep 16, 2015 Date of Influenza Vaccine: Mar 17, 2017 Seasonal Allergies Seasonal Allergies: Yes Past Medical History Surgeries: Yes (C/S X3, INCISIONAL HERNIA, total hysterectomy 2001) Section, Hysterectomy Respiratory: Yes (WEARS 3L/NC PRN) Sleep Apnea, COPD Currently Using CPAP: Yes Cardiac: Yes High Cholesterol, Hypertension Neurological: Yes Neuropathy : No Reproductive Disorders: No 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 Sexually Transmitted Disease: No HIV/AIDS: No Renal Failure Gastrointestinal: Yes Gastroesophageal Reflux, Diverticulosis Musculoskeletal: Yes Arthritis, Fibromyalgia, Chronic Back Pain Endocrine: Yes Diabetes, Non-Insulin dep Are Your Blood Sugars Over 250: No HEENT: No Cancer: No Psychosocial: No Integumentary: No Blood Disorders: No Adverse Reaction/Blood Tranf: No Family Medical History Arthritis 19 FATHER 19 MOTHER Cardiovascular disease 19 FATHER Diabetes mellitus 19 FATHER Hypertension 19 FATHER 19 MOTHER Review of Systems Time Seen by Provider: 13:09 Sepsis Event Evaluation Height, Weight, BMI Height: 5'0.00" Weight: 229lbs. 0.0oz. 103.949574wk; 44.7 BMI Method:Stated Exam Exam Vital Signs Date Time Temp Pulse Resp B/P (MAP) Pulse Ox O2 Delivery O2 Flow Rate FiO2 02/20/18 04:00 97.2 96 20 137/74 (95) 93 Nasal Cannula 2.00 02/20/18 02:33 92 Nasal Cannula 2.00 02/20/18 01:00 121 02/20/18 00:00 97.2 88 20 131/63 (85) 94 Nasal Cannula 2.00 02/19/18 22:29 91 Nasal Cannula 2.00 02/19/18 20:00 98 Nasal Cannula 2.00 02/19/18 19:27 96.4 92 16 122/58 (79) 98 02/19/18 19:16 92 Nasal Cannula 2.00 02/19/18 19:00 100 02/19/18 16:46 98.9 101 22 131/73 (92) 92 Nasal Cannula 2.00 02/19/18 15:48 Nasal Cannula 2.00 I & O 02/20/18 07:00 Intake Total 1030 ml Output Total 2350 ml Balance -1320 ml Height & Weight Height: 5'0.00" Weight: 229lbs. 0.0oz. 103.931748bf; 44.7 BMI Method:Stated General Appearance: Mild Distress Neck: Full Range of Motion, Normal Inspection, Non Tender, Supple Respiratory: Accessory Muscle Use, Crackles, Decreased Breath Sounds Cardiovascular: Regular Rate, Rhythm, No Edema, No JVD, Normal Peripheral Pulses Capillary Refill: Less Than 3 Seconds Gastrointestinal: normal bowel sounds, non tender, soft, no pulsatile mass Extremity: Normal Capillary Refill, Normal Inspection, Normal Range of Motion Neurologic/Psychiatric: Alert Results Lab Laboratory Tests 02/19/18 15:45 02/20/18 04:05 Assessment/Plan Assessment/Plan Pneumonia with sepsis (leukocytosis on admission, RR and HR) - failed out patient treatment -IVF -LA is normal (not severe sepsis) -Check CTA of chest r/o Mass/PE -Continue Zosyn COPDAE -SVNS -Prednisone -Advair Tobacco dependance -Education DALTON -She has home CPAP LAMAR on chronic - improved with IVF DVT/GI PPX LAKE HERNÁNDEZ DO Feb 20, 2018 06:45
[2018-02-20] MEDS ORDERED: BACLOFEN 10 MG (LIORESAL) TAB PO PRN (07:00)
[2018-02-20] MEDS ORDERED: IOHEXOL 350 MG/ML 150 ML (OMNIPAQUE 350) VIAL IV ONE (07:15)
[2018-02-20] MEDS ORDERED: NS 250 ML (IVPB) BAG IV ONE (07:15)
[2018-02-20] MEDS ORDERED: FERROUS SULF 325 MG (IRON) TAB PO SCH (07:22)
[2018-02-20] MEDS ORDERED: OMEGA 3 (FISH OIL) 1000 MG CAP PO SCH (07:26)
[2018-02-20] MEDS ORDERED: PANTOPRAZOLE 40 MG (PROTONIX) TAB PO SCH (07:27)
[2018-02-20] MEDS ORDERED: POLYETHYLENE GLYCOL 17 GM (MIRALAX) PACK PO PRN (07:28)
[2018-02-20] MEDS ORDERED: VITAMIN D3 5,000 UNITS (CHOLECALCIFEROL ) CAPSULE PO SCH (07:30)
[2018-02-20 08:00] VITALS: BP 164/95
[2018-02-20] MEDS ORDERED: RT-ADVAIR HFA 115/21 MCG PER PUFF IH SCH (08:00)
[2018-02-20] MEDS ORDERED: ALPRAZolam 0.5 MG (XANAX) TAB PO SCH (09:00)
[2018-02-20] MEDS ORDERED: PARoxetine 20 MG (PAXIL) TAB PO SCH (09:00)
[2018-02-20] MEDS ORDERED: PSYLLIUM POWDER (METAMUCIL) 5.8 GM PACKET PO SCH (09:00)
[2018-02-20] MEDS ORDERED: ALPRAZolam 0.5 MG (XANAX) TAB PO PRN (09:00)
[2018-02-20] MEDS ORDERED: ASPIRIN 325 MG (5 GR) TABLET PO SCH (09:00)
[2018-02-20] MEDS ORDERED: HYDROcodone/APAP 5 MG/325 MG (LORTAB) TAB PO SCH (09:00)
--- NOTE | 2018-02-20 09:07 | Diagnostic Imaging Report ---
INDICATION: Shortness of air. TECHNIQUE: Single view chest 3:10 AM. CORRELATION STUDY: 02/19/2018 FINDINGS: Limited depth of inspiration. Heart size and mediastinum are unremarkable. Lung goodwin overall relatively clear despite crowding at lung bases. IMPRESSION: 1. Generally stable chest demonstrating no acute abnormality. Dictated by: Dictated on workstation # [id number]
[2018-02-20] MEDS: GABAPENTIN 300 MG (NEURONTIN) CAP PO SCH ×2 (09:56→13:38)
[2018-02-20] MEDS ORDERED: PRD10T PO (10:27)
[2018-02-20] MEDS ORDERED: CEFD300C3 PO (10:27)
--- NOTE | 2018-02-20 10:49 | History & Physicial (CHS) ---
ADELIA GARCIA MEDICAL STUDENT 02/20/18 10:49am: HPI History of Present Illness: 57 yo white woman presents today for possible pneumonia after direct admit by Dr. White yesterday. Pt states she has had SOB for 2.5weeks, productive cough, and stuffiness. Pt reports nighttime fevers for 4-5 days. Pt notes that she had an appointment with Dr. White yesterday for her DALTON, COPD, and Asthma. Pt says she has been hospitalized two times in the last three years for pneumonia with acute kidney failure. Pt even became septic last year in March 2017 when hospitalized in [place]. Pt notes she has never been worked up for Chronic Kidney Disease. Source: patient, family (nephew) Exam Limitations: no limitations Date seen by provider: Feb 20, 2018 Time Seen by Provider: 09:30 Attending Physician Gustavo Lara MD PCP Harper Colmenares DO Consult Date of Admission Feb 19, 2018 at 15:33 Home Medications Home Medications Reviewed patient Home Medication Reconciliation performed by pharmacy medication reconciliations helpdesk technician and/or nursing. Patients Allergies have been reviewed. Allergies Coded Allergies: duloxetine (Verified Allergy, Unknown, SUICIDAL THOUGHTS, SEVERE DEPRESSION, 07/20/15) rosuvastatin (Verified Adverse Reaction, Mild, 10/02/15) Patient states she "gets very angry" while taking RUN-Hxdrpe-Aqtlgr Hx Patient Social History Marrital Status: Living Status: Lives with her and grandchildren Alcohol Use: Denies Use Recreational Drug Use: No Smoking Status: Former Smoker (quit in March 2017) Type Used: Cigarettes Recent Foreign Travel: No Contact w/other who traveled: No Recent Hopitalizations: No Recent Infectious Disease Expo: No Physical Abuse Screen: No Sexual Abuse: No Immunizations Up To Date Tetanus Booster (TDap): Unknown Date of Pneumonia Vaccine: Sep 16, 2015 Date of Influenza Vaccine: Mar 17, 2017 Past Medical History Type 2 DM, Fibromyalgia, HTN, Hyperlipidemia, Depression, Anxiety, DALTON, COPD, Asthma, Sx for rotator cuff tear Family Medical History Family History: Arthritis 19 FATHER 19 MOTHER Cardiovascular disease 19 FATHER Cervical cancer 19 MOTHER Diabetes mellitus 19 FATHER Hypertension 19 FATHER 19 MOTHER Review of Systems (CHC) Constitutional: fever EENTM: no symptoms reported Respiratory: cough, phlegm, short of breath Cardiovascular: no symptoms reported Gastrointestinal: no symptoms reported Genitourinary: no symptoms reported : No Musculoskeletal: no symptoms reported Skin: no symptoms reported Psychiatric/Neurological: Anxiety, Depressed Reviewed Test Results Reviewed Test Results Lab Laboratory Tests Test 02/19/18 15:45 02/19/18 16:10 02/19/18 18:00 02/19/18 18:40 Range/Units White Blood Count 12.5 H 4.3-11.0 10^3/uL Red Blood Count 4.71 4.35-5.85 10^6/uL Hemoglobin 12.0 11.5-16.0 G/DL Hematocrit 38 35-52 % Mean Corpuscular Volume 80 80-99 FL Mean Corpuscular Hemoglobin 26 25-34 PG Mean Corpuscular Hemoglobin Concent 32 32-36 G/DL Red Cell Distribution Width 18.0 H 10.0-14.5 % Platelet Count 464 H 130-400 10^3/uL Mean Platelet Volume 10.8 H 7.4-10.4 FL Neutrophils (%) (Auto) 63 42-75 % Lymphocytes (%) (Auto) 25 12-44 % Monocytes (%) (Auto) 10 0-12 % Eosinophils (%) (Auto) 2 0-10 % Basophils (%) (Auto) 0 0-10 % Neutrophils # (Auto) 7.8 1.8-7.8 X 10^3 Lymphocytes # (Auto) 3.1 1.0-4.0 X 10^3 Monocytes # (Auto) 1.2 H 0.0-1.0 X 10^3 Eosinophils # (Auto) 0.3 0.0-0.3 10^3/uL Basophils # (Auto) 0.0 0.0-0.1 10^3/uL Blood Gas Puncture Site LEFT RADIAL Blood Gas Patient Temperature 98.9 Arterial Blood pH 7.44 H 7.37-7.43 Arterial Blood Partial Pressure CO2 41 35-45 MMHG Arterial Blood Partial Pressure O2 80 79-93 MMHG Arterial Blood HCO3 28 H 23-27 MMOL/L Arterial Blood Total CO2 29.0 21.0-31.0 MMOL/L Arterial Blood Oxygen Saturation 96 94-100 % Arterial Blood Base Excess 3.9 H -2.5-2.5 MMOL/L Edgardo Test POSITIVE Blood Gas Ventilator Setting NO Blood Gas Inspired Oxygen 2 L Sodium Level 138 135-145 MMOL/L Potassium Level 4.0 3.6-5.0 MMOL/L Chloride Level 99 98-107 MMOL/L Carbon Dioxide Level 28 21-32 MMOL/L Anion Gap 11 5-14 MMOL/L Blood Urea Nitrogen 22 H 7-18 MG/DL Creatinine 1.56 H 0.60-1.30 MG/DL Estimat Glomerular Filtration Rate 34 BUN/Creatinine Ratio 14 Glucose Level 136 H 70-105 MG/DL Lactic Acid Level 1.77 0.50-2.00 MMOL/L Calcium Level 9.6 8.5-10.1 MG/DL Corrected Calcium 9.5 8.5-10.1 MG/DL Phosphorus Level 3.7 2.3-4.7 MG/DL Magnesium Level 1.8 1.8-2.4 MG/DL Total Bilirubin 0.2 0.1-1.0 MG/DL Aspartate Amino Transf (AST/SGOT) 33 5-34 U/L Alanine Aminotransferase (ALT/SGPT) 32 0-55 U/L Alkaline Phosphatase 54 40-136 U/L B-Type Natriuretic Peptide < 10.0 <100.0 PG/ML Total Protein 8.4 H 6.4-8.2 GM/DL Albumin 4.1 3.2-4.5 GM/DL Urine Color YELLOW Urine Clarity CLEAR Urine pH 6 5-9 Urine Specific [place] 1.015 L 1.016-1.022 Urine Protein NEGATIVE NEGATIVE Urine Glucose (UA) NEGATIVE NEGATIVE Urine Ketones NEGATIVE NEGATIVE Urine Nitrite NEGATIVE NEGATIVE Urine Bilirubin NEGATIVE NEGATIVE Urine Urobilinogen NORMAL NORMAL MG/DL Urine Leukocyte Esterase 1+ H NEGATIVE Urine RBC (Auto) NEGATIVE NEGATIVE Urine RBC NONE /HPF Urine WBC 0-2 /HPF Urine Squamous Epithelial Cells 0-2 /HPF Urine Crystals NONE /LPF Urine Bacteria NONE /HPF Urine Casts NONE /LPF Urine Mucus NEGATIVE /LPF Urine Culture Indicated NO Troponin I < 0.30 <0.30 NG/ML Glucometer 119 H 70-110 MG/DL Test 02/19/18 23:57 02/20/18 04:05 Range/Units Troponin I < 0.30 <0.30 NG/ML White Blood Count 8.5 4.3-11.0 10^3/uL Red Blood Count 4.26 L 4.35-5.85 10^6/uL Hemoglobin 10.7 L 11.5-16.0 G/DL Hematocrit 34 L 35-52 % Mean Corpuscular Volume 80 80-99 FL Mean Corpuscular Hemoglobin 25 25-34 PG Mean Corpuscular Hemoglobin Concent 31 L 32-36 G/DL Red Cell Distribution Width 17.7 H 10.0-14.5 % Platelet Count 375 130-400 10^3/uL Mean Platelet Volume 10.6 H 7.4-10.4 FL Neutrophils (%) (Auto) 57 42-75 % Lymphocytes (%) (Auto) 29 12-44 % Monocytes (%) (Auto) 11 0-12 % Eosinophils (%) (Auto) 3 0-10 % Basophils (%) (Auto) 0 0-10 % Neutrophils # (Auto) 4.8 1.8-7.8 X 10^3 Lymphocytes # (Auto) 2.5 1.0-4.0 X 10^3 Monocytes # (Auto) 0.9 0.0-1.0 X 10^3 Eosinophils # (Auto) 0.2 0.0-0.3 10^3/uL Basophils # (Auto) 0.0 0.0-0.1 10^3/uL Sodium Level 139 135-145 MMOL/L Potassium Level 3.7 3.6-5.0 MMOL/L Chloride Level 102 98-107 MMOL/L Carbon Dioxide Level 21 21-32 MMOL/L Anion Gap 16 H 5-14 MMOL/L Blood Urea Nitrogen 20 H 7-18 MG/DL Creatinine 1.22 0.60-1.30 MG/DL Estimat Glomerular Filtration Rate 46 BUN/Creatinine Ratio 16 Glucose Level 136 H 70-105 MG/DL Calcium Level 9.3 8.5-10.1 MG/DL Phosphorus Level 3.8 2.3-4.7 MG/DL Magnesium Level 1.9 1.8-2.4 MG/DL Radiology Chest Xray was clear and unremarkable. CTA still pending Physical Exam-([facility] Physical Exam Vital Signs VS - Last 72 Hours, by Label 02/19/18 02/19/18 02/19/18 02/19/18 15:48 16:46 19:00 19:16 Temp 98.9 Pulse 101 100 Resp 22 B/P (MAP) 131/73 (92) Pulse Ox 92 92 O2 Delivery Nasal Cannula Nasal Cannula Nasal Cannula O2 Flow Rate 2.00 2.00 2.00 02/19/18 02/19/18 02/19/1811/18 19:27 20:00 22:29 00:00 Temp 96.4 97.2 Pulse 92 88 Resp 16 20 B/P (MAP) 122/58 (79) 131/63 (85) Pulse Ox 98 98 91 94 O2 Delivery Nasal Cannula Nasal Cannula Nasal Cannula O2 Flow Rate 2.00 2.00 2.00 02/20/18 02/20/18 02/20/18 02/20/18 01:00 02:33 04:00 07:00 Temp 97.2 Pulse 121 96 103 Resp 20 B/P (MAP) 137/74 (95) Pulse Ox 92 93 O2 Delivery Nasal Cannula Nasal Cannula O2 Flow Rate 2.00 2.00 02/20/18 02/20/18 07:16 08:00 Temp 98.2 Pulse 98 Resp 20 B/P (MAP) 164/95 (118) Pulse Ox 94 94 O2 Delivery Nasal Cannula Nasal Cannula O2 Flow Rate 2.00 2.00 Capillary Refill : General Appearance: no apparent distress Respiratory: no accessory muscle use, crackles (all lobes), wheezing (all lobes ) Cardiovascular: regular rate, rhythm, no edema, no gallop, no murmur Gastrointestinal: normal bowel sounds Skin: normal color Assessment/Plan Assessment/Plan Admission Dx Pneumonia, R/O Sepsis Admission Status: Observation Reason for Inpatient Admission: Pneumonia, R/O Sepsis Assessment & Plan 1. Pneumonia; R/o sepsis Pt is not septic. Pneumonia clinically although diagnostic testing not supportive. Still waiting on CTA and sputum culture. Continue Zosyn and normal saline. 2. COPD Exacerbation Pt is stable at 93% on 2L of oxygen. Continue albuterol. 3. Acute Kidney Injury Already resolved with fluid overnight. Creatinine looks like it is back to her baseline, at 1.22. Continue seeing Dr. Montano at [facility] here in [place]. Clinical Quality Measures DVT/VTE Risk/Contraindication: Risk Factor Score Per Nursin RFS Level Per Nursing on Admit: 4+=Very High GUSTAVO LARA MD 02/20/18 8:52pm: Home Medications Allergies Coded Allergies: duloxetine (Verified Allergy, Unknown, SUICIDAL THOUGHTS, SEVERE DEPRESSION, 07/20/15) rosuvastatin (Verified Adverse Reaction, Mild, 10/02/15) Patient states she "gets very angry" while taking YLP-Gpxepv-Nrraty Hx Family Medical History Family History: Arthritis 19 FATHER 19 MOTHER Cardiovascular disease 19 FATHER Cervical cancer 19 MOTHER Diabetes mellitus 19 FATHER Hypertension 19 FATHER 19 MOTHER Supervisory-Addendum Brief Supervisory Addendum Patient interviewed and examined by me along with MS3 Adelia Garcia, agree with documentation unless otherwise noted. ADELIA GARCIA MEDICAL STUDENT Feb 20, 2018 10:49 am GUSTAVO LARA MD Feb 20, 2018 8:52 pm
[2018-02-20 12:00] VITALS: BP 138/90
--- NOTE | 2018-02-20 13:32 | Diagnostic Imaging Report ---
PROCEDURE: CT angiography of the chest with contrast. TECHNIQUE: Multiple contiguous axial images were obtained through the chest after uneventful bolus administration of intravenous contrast. Reconstructed CTA MIP acquisitions were also performed. INDICATION: Shortness of air and cough with fever. COMPARISON: Correlation is made with prior CT chest from 11/11/2015. FINDINGS: Evaluation of the pulmonary arterial system is without evidence of thromboembolism. No definite filling defects are seen within central, lobar or segmental branches. The thoracic aorta is normal caliber. No dissection is seen. No pericardial or pleural fluid is identified. No axillary lymphadenopathy is seen. There are prominent lymph nodes within the mediastinum, similar to prior study. A right paratracheal node demonstrates a short axis measurement of 11 mm. Mildly prominent prevascular nodes are present. There are also minimally prominent bilateral hilar lymph nodes. Parenchymal evaluation does show some mild lower lobe cylindrical bronchiectasis. There are some mild interstitial changes in the upper lung goodwin with patchy groundglass opacities. No parenchymal mass is seen. Upper abdomen demonstrates hepatic steatosis. There is a left adrenal mass measuring 3.0 cm compared with 2.8 cm. IMPRESSION: 1. No evidence of pulmonary embolism or thoracic aortic dissection. 2. Nonspecific mediastinal and hilar lymphadenopathy, similar to examination from November 2015. 3. Chronic parenchymal changes. No parenchymal mass or acute infiltrate is seen. 4. Stable left adrenal mass. 5. Hepatic steatosis. Dictated by: Dictated on workstation # [id number]
[2018-02-20] MEDS: ENOXAPARIN 40 MG/0.4 ML (LOVENOX) SYR SC SCH (16:02)
[2018-02-20 16:30] VITALS: BP 138/90
--- NOTE | 2018-02-20 20:41 | Discharge Instructions ---
Discharge [facility] Discharge Medications New, Converted or Re-Newed RX: Transmitted to Pharmacy New Medications: Cefdinir (Cefdinir) 300 Mg Capsule 300 MG PO BID, #14 CAP 0 Refills Prednisone (Prednisone) 10 Mg Tab 0 PO UD, #10 TAB 0 Refills Take 4 tabs (40mg) daily, decrease by 1 tab (10mg) daily. Continued Medications: Albuterol Sulfate (Albuterol Sulfate) 2.5 Mg/3 Ml Vial.neb 2.5 MG NEB TID PRN for WHEEZING, EA Albuterol Sulfate (Proair Hfa) 1 Puff Puff 2 PUFF IH Q4H PRN for WHEEZING, INHALER 1 PUFF = 90 MCG Alprazolam (Alprazolam) 0.5 Mg Tablet 0.5 MG PO TID, TAB Aspirin (Aspirin) 325 Mg Tablet 325 MG PO DAILY, TAB Baclofen (Baclofen) 10 Mg Tablet 10 MG PO BID PRN for MUSCLE SPASMS, TAB Benazepril HCl (Benazepril HCl) 5 Mg Tablet 5 MG PO DAILY, TAB Cholecalciferol (Vitamin D3) (Vitamin D3) 1,000 Unit Capsule 5000 UNIT PO DAILY, CAP Fenofibrate (Fenofibrate) 160 Mg Tablet 160 MG PO DAILY, TAB Ferrous Sulfate (Ferrous Sulfate) 325 Mg Tablet.dr 650 MG PO DAILY, TAB Fluticasone/Salmeterol (Advair 250-50 Diskus) 1 Each Blst.w.dev 1 PUFF IH BID, INHALER Gabapentin (Gabapentin) 300 Mg Capsule 300 MG PO TID, CAP Hydrocodone/Acetaminophen (Hydrocodone-Acetamin 5-325 mg) 1 Each Tablet 2 TAB PO DAILY, TAB Insulin Aspart (Novolog Flexpen) 300 Units/3 Ml Solution 22 UNITS SC AC, EA Insulin Detemir (Levemir Flextouch) 100 Unit/1 Ml Insuln.pen 35 UNITS SC BID, EA Liraglutide (Victoza 2-Martin) 0.6 Mg/0.1 Ml Pen.injctr 0.6-1.2 MG SC HS, EA Metoprolol Tartrate (Metoprolol Tartrate) 25 Mg Tablet 25 MG PO HS, TAB Montelukast Sodium (Montelukast Sodium) 10 Mg Tablet 10 MG PO HS, TAB Millis-3S/Dha/Epa/Fish Oil (Fish Oil Millis-3 Softgel) 1 Each Capsule. 1 CAP PO DAILY, CAP Pantoprazole Sodium (Pantoprazole Sodium) 40 Mg Tablet.dr 40 MG PO DAILY, TAB Paroxetine HCl (Paroxetine HCl) 20 Mg Tablet 20 MG PO BID, TAB Polyethylene Glycol 3350 (Polyethylene Glycol 3350) 255 Gm Powder 17 GM PO DAILY PRN for CONSTIPATION-2ND LINE, EA Psyllium Husk (Metamucil) 0.52 Gm Capsule 0.52 GM PO BID, CAP Tiotropium Neola (Spiriva) 1 Inh Aerp 1 CAP IH DAILY, INHALER Torsemide (Torsemide) 20 Mg Tablet 20 MG PO DAILY, TAB Patient Instructions Goal/Follow Up Appt: follow up with Kedar Leslie APRN at [facility] on 02/27 at 1:20 pm. follow up with Dr. White as directed. [facility] For: Fever, worsening shortness of breath on home oxygen Activity & Diet Discharge Diet: ADA Diet Activity as Tolerated: Yes Copy Copies To 1: CAMI Sun BETHANY N MD Feb 20, 2018 11:33 am
--- NOTE | 2018-02-20 20:47 | Discharge Summary ---
Diagnosis/Chief Complaint Date of Admission Feb 19, 2018 at 3:33 pm Date of Discharge Feb 20, 2018 at 4:30 pm Admission Diagnosis Admission Diagnosis 1. Pneumonia; R/o sepsis 2. COPD Exacerbation 3. Acute Kidney Injury Discharge Diagnosis 1. Pneumonia; R/o sepsis Did not meet sepsis criteria on admission. Pneumonia clinically although diagnostic testing not supportive. Zosyn given in patient. CTA without PE or pulmonary parenchymal disease. Discharged on cefdinir. 2. COPD Exacerbation Pt is stable at 93% on 2L of oxygen with home usual requirement 3 lpm. Discharged with fast prednisone taper. 3. Acute Kidney Injury Already resolved with fluid overnight. Creatinine looks like it is back to her baseline, at 1.22. 4. Adrenal mass- stable per report on CT, but unknown if work-up has been done, defer to outpatient follow-up 5. Hepatic steatosis- noted on CTA, can discuss further outpatient 6. Non-specific lymphadenopathy noted on CTA that was stable since 2016, continue following with Pulmonology Chief Complaint/HPI Chief Complaint/HPI 57 yo white woman presents today for possible pneumonia after direct admit by Dr. White yesterday. Pt states she has had SOB for 2.5weeks, productive cough, and stuffiness. Pt reports nighttime fevers for 4-5 days. Pt notes that she had an appointment with Dr. White yesterday for her DALTON, COPD, and Asthma. Pt says she has been hospitalized two times in the last three years for pneumonia with acute kidney failure. Pt even became septic last year in March 2017 when hospitalized in [place]. Pt notes she has never been worked up for Chronic Kidney Disease. Discharge Summary-Simple/Stand Consultations Discharge Physical Examination Allergies: Coded Allergies: duloxetine (Verified Allergy, Unknown, SUICIDAL THOUGHTS, SEVERE DEPRESSION, 07/20/15) rosuvastatin (Verified Adverse Reaction, Mild, 10/02/15) Patient states she "gets very angry" while taking Vitals & I&Os Vital Sign - Last 12Hours Date Time Temp Pulse Resp B/P (MAP) Pulse Ox O2 Delivery O2 Flow Rate FiO2 02/20/18 16:30 102 20 138/90 93 Room Air 02/20/18 14:29 2.00 02/20/18 12:00 98.8 Intake and Output 02/19/18 23:59 Intake Total 780 ml Output Total 600 ml Balance 180 ml General Appearance: Alert, No Acute Distress Respiratory: Clear to Auscultation, Normal Air Movement Abdominal: Normal Bowel Sounds, No Tenderness Neuro: Normal Speech Hospital Course See final discharge diagnosis. Radiology Reviewed Chest Xray was clear and unremarkable. CTA IMPRESSION: 1. No evidence of pulmonary embolism or thoracic aortic dissection. 2. Nonspecific mediastinal and hilar lymphadenopathy, similar to examination from November 2015. 3. Chronic parenchymal changes. No parenchymal mass or acute infiltrate is seen. 4. Stable left adrenal mass. 5. Hepatic steatosis. Discharge Instructions to patient/family Please see electronic discharge instructions given to patient. Discharge Medications Reviewed and agree with Discharge Medication list on patient's Discharge Instruction sheet Clinical Quality Measures DVT/VTE Risk/Contraindication: Risk Factor Score Per Nursin RFS Level Per Nursing on Admit: 4+=Very High Copy Copies To 1: CAMI Sun BETHANY N MD Feb 20, 2018 8:47 pm
[2018-02-20] MEDS ORDERED: MONTELUKAST 10 MG (SINGULAIR) TAB PO SCH (21:00)
[2018-02-20] MEDS ORDERED: inSUlin DETERMIR 1 UNIT/0.01 ML (LEVEMIR) CHARGE PER UNIT SQ SCH (21:00)
[2018-02-20] MEDS ORDERED: meTOprolol TARTRATE 25 MG (LOPRESSOR) TABLET PO SCH (21:00)
[2018-02-20] MEDS ORDERED: FENOFIBRATE 134 MG (LOFIBRA) CAPSULE PO SCH (21:00)
[2018-02-21] MEDS ORDERED: predniSONE 20 MG TAB PO SCH (07:00)
--- OUTSIDE RECORDS SUMMARY | 2018-02-26 15:15 | XMS REPORT ---
Author Author KATIE JEFFRIES Organization [facility] Address [address] [place] [address] Care Team Providers Care Manager Research Development Name Role Phone MERVIN KATIE Unavailable PROBLEMS Type Condition ICD9-CM Code TIN35-PK Code Onset Dates Condition Status SNOMED Code Problem Other chronic pain G89.29 Active 98265178 Problem Insomnia G47.00 Active 509366447 Problem Type 2 diabetes mellitus with unspecified complications E11.8 Active 26541657 Problem Constipation by delayed colonic transit K59.01 Active 34861215 Problem Chronic kidney disease (CKD) stage G3b/A1, moderately decreased glomerular filtration rate (GFR) between 30-44 mL/min/1.73 square meter and albuminuria creatinine ratio less than 30 mg/g N18.3 Active 691209386 Problem Mixed hyperlipidemia E78.2 Active 662672436 Problem Controlled substance agreement signed Z79.899 Active 880509355 Problem 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 Active 69433524 Problem Vitamin D deficiency E55.9 Active 73173929 Problem Peripheral neuropathy G62.9 Active 69563975 Problem Essential hypertension I10 Active 85092787 Problem Osteoarthritis of acromioclavicular joint M19.019 Active 431246745 Problem COPD (chronic obstructive pulmonary disease) J44.9 Active 30120702 Problem Anxiety associated with depression F41.8 Active 757630526 Problem GERD (gastroesophageal reflux disease) K21.9 Active 572780872 ALLERGIES No Information ENCOUNTERS Encounter Location Date Diagnosis [facility] [id number], [place] [address] Feb, [facility] [address], [place] [address] 08 Feb, 2018 Other chronic pain G89.29 and Anxiety associated with depression F41.8 [facility] [id number] [place] [address]- 1011 Jan, [facility] [address], [place] [address] Jan, Type 2 diabetes mellitus with unspecified complications E11.8 [facility] [address], [place] [address] Jan, [facility] [id number] [place] [address] 73099- 5750 Jan, Other chronic pain G89.29 and Anxiety associated with depression F41.8 [facility] [address], [place] [address] Jan, [facility] [id number] [place] [address] 36089- 9893 Dec, [facility] [id number] [address] Dec, Type 2 diabetes mellitus with unspecified [...] and 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 [facility] [address], [place] [address] Dec, [facility] [address], [place] [address] Dec, Type 2 diabetes mellitus with unspecified complications E11.8 [facility] [address], [place] [address] Dec, [facility] [address], [place] [address] 78[address] Dec, Type 2 diabetes mellitus with unspecified complications E11.8 [facility] [address], [place] [address] 3549 Dec, Type 2 diabetes mellitus with unspecified complications E11.8 [facility] [address] [facility] [id number] [place] [address] Dec, [facility] [address] [facility] [id number] [place] [address] 6105 Dec, Type 2 diabetes mellitus with unspecified complications E11.8 [facility] [address] [facility] [id number], [place] [address] Dec, [facility] [address] [facility] [id number] [place] [address]- 5293 Dec, [facility] [id number], [place] [address] 7262 Dec, [facility] [address], [place] [address] 2201 Dec, [facility] [address], [place] [address] 46[address] Dec, [facility] [address], [place] [address] 34[address] Dec, Other chronic pain G89.29 and Anxiety associated with depression F41.8 [facility] [id number], [place] [address] 4[address] Dec, Type 2 diabetes mellitus with unspecified complications E11.8 [facility] [id number], [place] [address] 0293 Nov, [facility] [address] [facility] [id number], [place] [address] 79[address] Nov, [facility] [address], [place] [address] 3421 Nov, [facility] [id number], [place] [address] 04[address] Nov, [facility] [id number] [address] 2097 Nov, Type 2 diabetes mellitus with unspecified complications E11.8 [facility] [address], [place] [address] 2[address] Nov, [facility] [address], [place] [address] 7[address] Nov, Type 2 diabetes mellitus with unspecified complications E11.8 [facility] [address], [place] [address] 2238 Nov, Other chronic pain G89.29 and Anxiety associated with depression F41.8 [facility] [address], [place] [address] 08 Nov, 2017 Chronic renal insufficiency N18.9 [facility] [address], [place] [address] 6[address] 07 Nov, 2017 Other chronic pain G89.29 [facility] [address], [place] [address] 1631 Nov, Type 2 diabetes mellitus with unspecified complications E11.8 [facility] [address], [place] [address] 2[address] October, [facility] [address], [place] [address] 40[address] October, [facility] [address], [place] [address]- 5944 October, Type 2 diabetes mellitus with unspecified complications E11.8 [facility] [address], [place] [address] 8452 October, [facility] [address], [place] [address]- 30[address] October, [facility] [address], [place] [address]- 1626 October, Type 2 diabetes mellitus with unspecified complications E11.8 [facility] [id number] [address] 9679 October, [facility] [id number] [place] [address] 12838- 6935 October, [facility] [id number] [place] [address] 56054- 2040 October, Type 2 diabetes mellitus with unspecified complications E11.8 [facility] [id number] [place] [address] 60549- 7256 October, Type 2 diabetes mellitus with unspecified complications E11.8 ; Essential hypertension I10 ; Chronic renal insufficiency N18.9 ; BMI 40.0-44.9, adult Z68.41 ; Other chronic pain G89.29 ; Anxiety associated with depression F41.8 and Right medial knee pain M25.561 [id number] [place] [address] 01102- 3955 October, GERD (gastroesophageal reflux disease) K21.9 and Anxiety associated with depression F41.8 [facility] [id number] [place] [address] 47413- 0683 October, Anxiety associated with depression F41.8 [facility] [id number] [place] [address] 39149- 1181 Sep, [facility] [id number] [place] [address] 69303- 1647 Sep, GERD (gastroesophageal reflux disease) K21.9 and Anxiety associated with depression F41.8 [facility] [address], [place] [address]- 2273 Aug, [facility] [id number] [place] [address] 09160- 4203 Aug, [facility] [id number] [place] [address] 42262 -6786 Aug, Acute recurrent maxillary sinusitis J01.01 [facility] [id number] [place] [address] 93182- 1715 Aug, [facility] [address], [place] [address]- 2229 Aug, GERD (gastroesophageal reflux disease) K21.9 and Other chronic pain G89.29 [facility] [address], [place] [address]- 0869 Aug, [facility] [id number] [place] [address] 08130 -6215 Aug, [facility] [id number] [place] [address] 91517- 0664 Aug, Controlled substance agreement signed Z79.899 ; [...] and Enlarged lymph nodes in armpit R59.0 [facility] [id number] [place] [address] 03550- 5197 Aug, Anxiety associated with depression F41.8 and GERD ( gastroesophageal reflux disease) K21.9 [facility] [address], [place] [address]- 7612 Jul, Controlled substance agreement signed Z79.899 [facility] [id number] [place] [address] 61965- 5415 Jun, Anxiety associated with depression F41.8 and GERD ( gastroesophageal reflux disease) K21.9 [facility] [id number] [place] [address] 00624- 2348 May, Anxiety associated with depression F41.8 and GERD ( gastroesophageal reflux disease) K21.9 [address] [place] [address] [place] [address] 44603- 4731 Apr, Mixed hyperlipidemia E78.2 [address] [address] [place] [address] 06885- 9776 Apr, Anxiety associated with depression F41.8 and GERD ( gastroesophageal reflux disease) K21.9 [address] [facility] [id number] [place] [address] 88775- 4992 Apr, [address] [facility] [id number] [place] [address] 36163- 0824 Apr, Type 2 diabetes mellitus with unspecified complications E11.8 [facility] [id number] [place] [address] 76725- 7416 Apr, [facility] [id number] [place] [address] 86418- 2418 Apr, Type 2 diabetes mellitus with unspecified complications E11.8 [id number] [place] [address] 85254- 4725 Apr, [facility] [id number] [place] [address] 13780- 2747 Mar, GERD (gastroesophageal reflux disease) K21.9 and Anxiety associated with depression F41.8 [facility] [id number] [place] [address] 65990- 1265 Mar, 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 [id number] [place] [address] 05441- 3377 Mar, Essential hypertension I10 ; Anxiety associated with depression F41.8 ; COPD (chronic obstructive pulmonary disease) J44.9 ; Mixed hyperlipidemia E78.2 ; Vitamin D deficiency E55.9 ; GERD (gastroesophageal reflux disease) K21.9 ; Type 2 diabetes mellitus with unspecified complications E11.8 ; Other chronic pain G89.29 and Chronic renal insufficiency N18.9 [address] [facility] [id number] [place] [address] 02428- 8022 Mar, Chronic renal insufficiency N18.9 [facility] [id number] [place] [address] 74185- 3926 Feb, GERD (gastroesophageal reflux disease) K21.9 and Type 2 diabetes mellitus with unspecified complications E11.8 [address] [facility] [id number] [place] [address] 68983- 7524 Feb, Anxiety associated with depression F41.8 and Tear of left supraspinatus tendon, subsequent encounter S46.812D [address] [facility] [id number] [place] [address] 49338- 7624 Jan, Pre-operative examination for internal medicine Z01.818 [address] [id number] [place] [address] 36315- 6396 Jan, Anxiety associated with depression F41.8 and Left anterior shoulder pain M25.512 [address] [id number] [place] [address] 71478- 7179 Jan, [address] [facility] [id number] [place] [address] 31746- 4332 Jan, [address] [facility] [id number] [place] [address] 71633- 4184 Jan, Type 2 diabetes mellitus with unspecified complications E11.8 ; Essential hypertension I10 ; Other chronic pain G89.29 ; GERD ( gastroesophageal reflux disease) K21.9 ; Anxiety associated with depression F41.8 ; Insomnia G47.00 ; Hypertriglyceridemia E78.1 ; Left anterior shoulder pain M25.512 and Tobacco abuse Z72.0 [address] [facility] [id number] [place] [address] 07401- 9524 Dec, Anxiety associated with depression F41.8 and Tear of left supraspinatus tendon, subsequent encounter S46.812D [address] [id number] [place] [address] 31522- 2672 Nov, [address] [facility] [id number] [place] [address] 82290- 0721 14 Nov, 2016 Anxiety associated with depression F41.8 and Tear of left supraspinatus tendon, subsequent encounter S46.812D [address] [id number] [place] [address] 88933- 3467 Nov, Abnormal lung sounds R09.89 and COPD (chronic obstructive pulmonary disease) with acute bronchitis J44.0 [address] [facility] [id number] [place] [address] 16452- 0346 Nov, [address] 9[address]83- 2836 October, COPD (chronic obstructive pulmonary disease) with acute bronchitis J44.0 ; Abnormal lung sounds R09.89 and Medication refill Z76.0 [address] [place] 51515- 7975 October, Anxiety associated with depression F41.8 [address] [facility] [id number] [place] [address] 87426- 5630 Sep, Nausea and vomiting, unspecified intactability, vomiting of unspecified type R11.2 [address] [facility] [id number] [place] [address] 63883- 0703 Sep, COPD (chronic obstructive pulmonary disease) J44.9 ; Tobacco abuse Z72.0 ; Tear of left supraspinatus tendon, subsequent encounter S46.812D and Type 2 diabetes mellitus with unspecified complications E11.8 [address] [facility] [id number] [place] [address] 86602- 4184 Sep, [address] [id number] [place] [address] 85638- 0402 Aug, Left anterior shoulder pain M25.512 [address] [place] [id number] [place] [address] 08119- 7752 Aug, Left anterior shoulder pain M25.512 and Low back pain M54.5 [address] [place] [id number] [place] [address] 55898- 8458 Aug, [address] [facility] [address] 45965- 3497 Aug, [address] [facility], [place] [address]- 8575 Aug, [address] [id number] [place] [address] 60529- 4753 Aug, [address] [id number] [place] [address] 06198- 3307 Aug, Type 2 diabetes mellitus with unspecified complications E11.8 [facility] [id number] [place] [address] 79947- 6797 Aug, Type 2 diabetes mellitus with unspecified [...] E55.9 and GERD (gastroesophageal reflux disease) K21.9 [address] [facility] [address] [place] [address] 59729- 3166 Aug, [address] [id number] [place] [address] 97018- 0133 May, [address] [id number] [place] [address] 23748- 7553 Apr, [address] [id number] [place] [address] 51773- 2079 Apr, Type 2 diabetes mellitus with unspecified [...] S49.92XA and Anxiety associated with depression F41.8 [address], [place] [address]- 0303 Apr, [facility] [address], [place] [address]- 2532 Apr, [facility] [address], [place] [address]- 3769 Apr, [facility] [address], [place] [address]- 7855 Mar, [facility] [address], [place] [address]- 4946 Feb, [facility] [address], [place] [address]- 0617 Feb, [facility] [address], [place] [address]- 3591 Jan, [facility] [address], [place] [address]- 1920 Jan, [facility] [address], [place] [address]- 8869 Jan, Type 2 diabetes mellitus with unspecified complications E11.8 ; Essential hypertension I10 and Vitamin D deficiency E55.9 [facility] [id number], [place] [address]- 5585 Dec, Type 2 diabetes mellitus with unspecified complications E11.8 ; Essential hypertension I10 ; Other chronic pain G89.29 ; Anxiety associated with depression F41.8 ; Bronchitis J40 ; Vitamin D deficiency E55.9 and COPD (chronic obstructive pulmonary disease) J44.9 [facility] [address], [place] [address]- 8854 Nov, [facility] [address], [place] [address]- 9779 October, [facility] [id number], [place] [address]- 0611 October, [facility] [address] [place] [address] 77452- 6537 October, [facility] [id number] [place] [address] 54608- 7696 October, Dysuria R30.0 ; Bronchitis J40 ; Anxiety associated with depression F41.8 and Type 2 diabetes mellitus with unspecified complications E11.8 [facility] [id number] [place] [address] 04887- 7982 October, Chronic renal insufficiency N18.9 ; Elevated white blood cell count D72.829 and Frequent UTI N39.0 [facility] [facility] [id number] [place] [address] 06202- 3857 October, Chronic renal insufficiency N18.9 ; Elevated white blood cell count D72.829 and Frequent UTI N39.0 [place] [id number] [place] [address] 05108- 7567 October, [facility] [place] [id number] [place] [address] 55965- 2598 Sep, Type 2 diabetes mellitus with unspecified complications E11.8 ; Essential hypertension I10 ; COPD (chronic obstructive pulmonary disease ) J44.9 and Hospital discharge follow-up Z09 [facility] [id number] [place] [address] 03057- 4922 Sep, [facility] [place] [id number] [place] [address] 82741- 6883 Sep, Dyspnea R06.00 ; Other chronic pain G89.29 ; Dysuria R30.0 ; Diaphoresis R61 ; Jaundice R17 ; COPD (chronic obstructive pulmonary disease) J44.9 ; Type 2 diabetes mellitus with unspecified complications E11.8 ; Excessive daytime sleepiness G47.19 and Oliguria R34 [place] [id number] [place] [address] 81846- 8546 Sep, [facility] [id number] [place] [address] 24886- 6366 Sep, Essential hypertension I10 ; Anxiety associated with depression F41.8 ; Mixed hyperlipidemia E78.2 ; Dyspnea R06.00 ; Shortness of breath R06.02 and Chest pain, unspecified R07.9 [place] [id number] [place] [address] 10575- 9741 Sep, Chest pain R07.9 ; Hyperlipemia E78.5 ; Type 2 diabetes mellitus with unspecified complications E11.8 ; Essential hypertension I10 ; Other chronic pain G89.29 ; Anxiety associated with depression F41.8 ; COPD ( chronic obstructive pulmonary disease) J44.9 ; Low vitamin D level E55.9 ; Tobacco abuse Z72.0 ; Hypertriglyceridemia E78.1 and Abnormal laboratory test R89.[address] 14122- 0019 Aug, Pneumonia J18.9 ; Hypertriglyceridemia E78.1 ; COPD ( chronic obstructive pulmonary disease) J44.9 and Hyperlipidemia E78.[address] 03996- 7893 Aug, Shortness of breath R06.02 ; Anxiety associated with depression F41.8 and Chest pain, unspecified R07.9 [address] [id number] [place] [address] 52863- 5276 Jul, [place] [id number] [place] [address] 77411- 7769 Jun, Anxiety associated with depression F41.8 ; [...] unspecified type R11.2 and Tobacco abuse Z72.0 [place] [id number] [place] [address] 58470- 7035 May, Hyperlipemia E78.[address], [place] [address]- 0261 May, [facility] [id number] [place] [address] 94612- 0033 May, Type 2 diabetes mellitus with unspecified complications E11.8 [facility] [place] [id number] [place] [address] 28685- 2202 May, [facility] [place] [id number] [place] [address] 58789- 3444 May, Anxiety associated with depression F41.8 ; Type 2 diabetes mellitus with unspecified complications E11.8 ; Essential hypertension I10 ; Peripheral neuropathy G62.9 ; Low back pain M54.5 ; Other chronic pain G89.29 ; GERD (gastroesophageal reflux disease) K21.9 ; Insomnia G47.00 ; COPD (chronic obstructive pulmonary disease) J44.9 ; URI (upper respiratory infection) J06.9 and Depression F32.9 [place] [id number] [place] [address] 68156- 8689 May, Low back pain M54.5 ; Anxiety about health F41.8 ; Generalized anxiety disorder F41.1 and Acute stress reaction F43.[address] [place] [address] 76705- 8283 May, [address] [place] [address] 86530- 9700 Apr, Diabetes E11.9 ; Type 2 diabetes mellitus with unspecified complications E11.8 ; Essential hypertension I10 ; Peripheral neuropathy G62.9 ; Low back pain M54.5 ; Other chronic pain G89.29 ; GERD (gastroesophageal reflux disease) K21.9 ; Anxiety associated with depression F41.8 ; Muscle spasm of calf M62.831 ; Insomnia G47.00 and COPD (chronic obstructive pulmonary disease) J44.9 [place] [address] [place] [address] 82734- 1481 May, [place] [id number] [place] [address] 96713- 8026 May, IMMUNIZATIONS No Known Immunizations SOCIAL HISTORY Never Assessed REASON FOR VISIT Hydrocodone 01/16 PLAN OF CARE VITAL SIGNS MEDICATIONS Medication Instructions Dosage Frequency Start Date End Date Duration Status Hydrocodone-Acetaminophen 5-325 MG Orally twice a day 1 tablet as needed 12h 07 Jan, 2018 28 days Active Xanax 0.5 MG Orally [...]
--- OUTSIDE RECORDS SUMMARY | 2018-02-26 15:16 | XMS REPORT ---
Author Author KATIE JEFFRIES Organization [facility] Address [address] [place] [address] Care Team Providers Care Business Banking Officer Name Role Phone MERVIN KATIE Unavailable PROBLEMS Type Condition ICD9-CM Code FVZ76-ID Code Onset Dates Condition Status SNOMED Code Problem Other chronic pain G89.29 Active 79727848 Problem Insomnia G47.00 Active 568783377 Problem Type 2 diabetes mellitus with unspecified complications E11.8 Active 81293774 Problem Constipation by delayed colonic transit K59.01 Active 65546467 Problem Chronic kidney disease (CKD) stage G3b/A1, moderately decreased glomerular filtration rate (GFR) between 30-44 mL/min/1.73 square meter and albuminuria creatinine ratio less than 30 mg/g N18.3 Active 338077905 Problem Mixed hyperlipidemia E78.2 Active 879696691 Problem Controlled substance agreement signed Z79.899 Active 898074863 Problem 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 Active 56968538 Problem Vitamin D deficiency E55.9 Active 01975865 Problem Peripheral neuropathy G62.9 Active 04994894 Problem Essential hypertension I10 Active 99308344 Problem Osteoarthritis of acromioclavicular joint M19.019 Active 134384581 Problem COPD (chronic obstructive pulmonary disease) J44.9 Active 33614651 Problem Anxiety associated with depression F41.8 Active 588408159 Problem GERD (gastroesophageal reflux disease) K21.9 Active 324517561 ALLERGIES No Information ENCOUNTERS Encounter Location Date Diagnosis [facility] [id number] [address] Feb, [facility] [address], [place] [address] 08 Feb, 2018 Other chronic pain G89.29 and Anxiety associated with depression F41.8 [facility] [id number] [place] [address] 45811- 6821 Jan, [facility] [address], [place] [address] 8646 Jan, Type 2 diabetes mellitus with unspecified complications E11.8 [facility] [address], [place] [address] 6[address] Jan, [facility] [id number] [place] [address] 30618- 4175 Jan, Other chronic pain G89.29 and Anxiety associated with depression F41.8 [facility] [address] [address] 6438 Jan, [facility] [id number] [place] [address] 79613- 5289 Dec, [facility] [id number] [address] 49[address] Dec, Type 2 diabetes mellitus with unspecified [...] and 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 [facility] [address] [address] Dec, [facility] [address], [place] [address] 6731 Dec, Type 2 diabetes mellitus with unspecified complications E11.8 [facility] [address], [place] [address] 8545 Dec, [facility] [address] [address] 9343 Dec, Type 2 diabetes mellitus with unspecified complications E11.8 [facility] [address], [place] [address] 2807 Dec, Type 2 diabetes mellitus with unspecified complications E11.8 [facility] [address] [facility] [place] [id number] [place] [address] 23[address] Dec, [facility] [address] [facility] [id number] [place] [address] 9888 Dec, Type 2 diabetes mellitus with unspecified complications E11.8 [facility] [address] [facility] [id number] [address] Dec, [facility] [address] [facility] [id number] [place] [address] 3141 Dec, [facility] [id number] [address] 8604 Dec, [facility] [address], [place] [address] 3976 Dec, [facility] [address] [address] 2661 Dec, [facility] [address], [place] [address]- 1706 Dec, Other chronic pain G89.29 and Anxiety associated with depression F41.8 [facility] [id number] [address] 9656 Dec, Type 2 diabetes mellitus with unspecified complications E11.8 [facility] [id number] [address]- 4485 Nov, [facility] [address] [facility] [id number], [place] [address] 2610 Nov, [facility] [address] [address]- 6910 Nov, [facility] [id number] [address] 1731 Nov, [facility] [id number] [address] 0406 Nov, Type 2 diabetes mellitus with unspecified complications E11.8 [facility] [address], [place] [address] 1198 Nov, [facility] [address], [place] [address]- 4250 Nov, Type 2 diabetes mellitus with unspecified complications E11.8 [facility] [id number], [place] [address]- 3080 Nov, Other chronic pain G89.29 and Anxiety associated with depression F41.8 [facility] [address], [place] [address] 9[address] 08 Nov, 2017 Chronic renal insufficiency N18.9 [facility] [address], [place] [address] 8759 07 Nov, 2017 Other chronic pain G89.29 [facility] [address], [place] [address]- 4115 Nov, Type 2 diabetes mellitus with unspecified complications E11.8 [facility] [address], [place] [address] October, [facility] [address], [place] [address]- 0033 October, [facility] [address], [place] [address]- 5715 October, Type 2 diabetes mellitus with unspecified complications E11.8 [facility] [address], [place] [address]- 7680 October, [facility] [address], [place] [address]- 4874 October, [facility] [address], [place] [address]- 3936 October, Type 2 diabetes mellitus with unspecified complications E11.8 [facility] [id number] [address] 9898 October, [facility] [id number] [place] [address] 54395- 8754 October, [facility] [id number] [place] [address] 34440- 7497 October, Type 2 diabetes mellitus with unspecified complications E11.8 [facility] [id number] [place] [address] 35523- 6934 October, Type 2 diabetes mellitus with unspecified complications E11.8 ; Essential hypertension I10 ; Chronic renal insufficiency N18.9 ; BMI 40.0-44.9, adult Z68.41 ; Other chronic pain G89.29 ; Anxiety associated with depression F41.8 and Right medial knee pain M25.561 [place] [id number] [place] [address] 99205- 2902 October, GERD (gastroesophageal reflux disease) K21.9 and Anxiety associated with depression F41.8 [facility] [id number] [place] [address] 43148- 7142 October, Anxiety associated with depression F41.8 [place] [id number] [place] [address] 35259- 7373 Sep, [place] [id number] [place] [address] 15124- 8013 Sep, GERD (gastroesophageal reflux disease) K21.9 and Anxiety associated with depression F41.8 [facility] [address], [place] [address]- 4309 Aug, [facility] [id number] [place] [address] 87696- 6226 Aug, [facility] [id number] [place] [address] 14137 -4586 Aug, Acute recurrent maxillary sinusitis J01.01 [place] [id number] [place] [address] 64945- 2357 Aug, [facility] [address], [place] [address]- 5570 Aug, GERD (gastroesophageal reflux disease) K21.9 and Other chronic pain G89.29 [facility] [address], [place] [address]- 0599 Aug, [facility] [address] [place] [address] 58403 -6475 Aug, [facility] [id number] [place] [address] 68903- 3596 Aug, Controlled substance agreement signed Z79.899 ; [...] R59.0 [facility] [id number] [place] [address] 55294- 5674 Aug, Anxiety associated with depression F41.8 and GERD ( gastroesophageal reflux disease) K21.9 [facility] [address], [place] [address]- 0764 Jul, Controlled substance agreement signed Z79.899 [facility] [address] [place] [address] 95811- 4584 Jun, Anxiety associated with depression F41.8 and GERD ( gastroesophageal reflux disease) K21.9 [place] [id number] [place] [address] 00708- 2943 May, Anxiety associated with depression F41.8 and GERD ( gastroesophageal reflux disease) K21.9 [place] [address] [place] [address] 80475- 2729 Apr, Mixed hyperlipidemia E78.2 [place] [address] [place] [address] 10189- 4360 Apr, Anxiety associated with depression F41.8 and GERD ( gastroesophageal reflux disease) K21.9 [place] [id number] [place] [address] 78341- 0179 Apr, [place] [id number] [place] [address] 70428- 6408 Apr, Type 2 diabetes mellitus with unspecified complications E11.8 [place] [id number] [place] [address] 40323- 1037 Apr, [place] [id number] [place] [address] 21500- 6326 Apr, Type 2 diabetes mellitus with unspecified complications E11.8 [id number] [place] [address] 64303- 5536 Apr, [place] [id number] [place] [address] 80947- 4077 Mar, GERD (gastroesophageal reflux disease) K21.9 and Anxiety associated with depression F41.8 [place] [id number] [place] [address] 47785- 1932 Mar, 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 [id number] [place] [address] 03813- 2804 Mar, Essential hypertension I10 ; Anxiety associated with depression F41.8 ; COPD (chronic obstructive pulmonary disease) J44.9 ; Mixed hyperlipidemia E78.2 ; Vitamin D deficiency E55.9 ; GERD (gastroesophageal reflux disease) K21.9 ; Type 2 diabetes mellitus with unspecified complications E11.8 ; Other chronic pain G89.29 and Chronic renal insufficiency N18.9 [place] [id number] [place] [address] 49136- 9237 Mar, Chronic renal insufficiency N18.9 [place] [id number] [place] [address] 18213- 4291 Feb, GERD (gastroesophageal reflux disease) K21.9 and Type 2 diabetes mellitus with unspecified complications E11.8 [place] [id number] [place] [address] 76600- 8872 Feb, Anxiety associated with depression F41.8 and Tear of left supraspinatus tendon, subsequent encounter S46.812D [place] [id number] [place] [address] 25998- 1584 Jan, Pre-operative examination for internal medicine Z01.818 [place] [id number] [place] [address] 59755- 2495 Jan, Anxiety associated with depression F41.8 and Left anterior shoulder pain M25.512 [place] [id number] [place] [address] 49240- 7685 Jan, [place] [id number] [place] [address] 56591- 9276 Jan, [place] [id number] [place] [address] 55856- 2374 Jan, Type 2 diabetes mellitus with unspecified complications E11.8 ; Essential hypertension I10 ; Other chronic pain G89.29 ; GERD ( gastroesophageal reflux disease) K21.9 ; Anxiety associated with depression F41.8 ; Insomnia G47.00 ; Hypertriglyceridemia E78.1 ; Left anterior shoulder pain M25.512 and Tobacco abuse Z72.0 [place] [id number] [place] [address] 68338- 6767 Dec, Anxiety associated with depression F41.8 and Tear of left supraspinatus tendon, subsequent encounter S46.812D [place] [id number] [place] [address] 19062- 6718 Nov, [place] [id number] [place] [address] 04999- 3339 14 Nov, 2016 Anxiety associated with depression F41.8 and Tear of left supraspinatus tendon, subsequent encounter S46.812D [place] [id number] [place] [address] 68695- 2777 Nov, Abnormal lung sounds R09.89 and COPD (chronic obstructive pulmonary disease) with acute bronchitis J44.0 [place] [id number] [place] [address] 93947- 6855 Nov, [place] [address] 40329- 9886 October, COPD (chronic obstructive pulmonary disease) with acute bronchitis J44.0 ; Abnormal lung sounds R09.89 and Medication refill Z76.0 [place] [address] 56280- 0719 October, Anxiety associated with depression F41.8 [place] [id number] [place] [address] 35002- 8459 Sep, Nausea and vomiting, unspecified intactability, vomiting of unspecified type R11.2 [place] [id number] [place] [address] 91014- 1035 Sep, COPD (chronic obstructive pulmonary disease) J44.9 ; Tobacco abuse Z72.0 ; Tear of left supraspinatus tendon, subsequent encounter S46.812D and Type 2 diabetes mellitus with unspecified complications E11.8 [place] [id number] [place] [address] 06242- 0551 Sep, [place] [id number] [place] [address] 36512- 7266 Aug, Left anterior shoulder pain M25.512 [place] [id number] [place] [address] 23366- 9774 Aug, Left anterior shoulder pain M25.512 and Low back pain M54.5 [place] [id number] [place] [address] 45973- 9842 Aug, [place] [address] 18096- 5569 Aug, [place] [address], [place] [address]- 7047 Aug, [place] [id number] [place] [address] 53194- 2479 Aug, [place] [id number] [place] [address] 80288- 7146 Aug, Type 2 diabetes mellitus with unspecified complications E11.8 [place] [id number] [place] [address] 59548- 9182 Aug, Type 2 diabetes mellitus with unspecified [...] E55.9 and GERD (gastroesophageal reflux disease) K21.9 [place] [address] [place] [address] 18540- 0242 Aug, [place] [id number] [place] [address] 45491- 3007 May, [id number] [place] [address] 65398- 6677 Apr, [place] [id number] [place] [address] 63465- 7758 Apr, Type 2 diabetes mellitus with unspecified [...] S49.92XA and Anxiety associated with depression F41.8 [id number] [address]- 6382 Apr, [facility] [address], [place] [address]- 5615 Apr, [facility] [address], [place] [address]- 6700 Apr, [facility] [address], [place] [address]- 4501 Mar, [facility] [address], [place] [address]- 5254 Feb, [facility] [address], [place] [address]- 2575 Feb, [facility] [address], [place] [address]- 4901 Jan, [facility] [address], [place] [address]- 5173 Jan, [facility] [address], [place] [address]- 7949 Jan, Type 2 diabetes mellitus with unspecified complications E11.8 ; Essential hypertension I10 and Vitamin D deficiency E55.9 [facility] [id number], [place] [address]- 6084 Dec, Type 2 diabetes mellitus with unspecified complications E11.8 ; Essential hypertension I10 ; Other chronic pain G89.29 ; Anxiety associated with depression F41.8 ; Bronchitis J40 ; Vitamin D deficiency E55.9 and COPD (chronic obstructive pulmonary disease) J44.9 [facility] [address], [place] [address]- 7346 Nov, [facility] [address], [place] [address]- 0375 October, [facility] [id number] [address]- 7319 October, [facility] [address] [place] [address] 27618- 8120 October, [place] [id number] [place] [address] 20666- 9678 October, Dysuria R30.0 ; Bronchitis J40 ; Anxiety associated with depression F41.8 and Type 2 diabetes mellitus with unspecified complications E11.8 [place] [address] [place] [address] 98836- 5159 October, Chronic renal insufficiency N18.9 ; Elevated white blood cell count D72.829 and Frequent UTI N39.0 [place] [address] [place] [address] 51238- 1568 October, Chronic renal insufficiency N18.9 ; Elevated white blood cell count D72.829 and Frequent UTI N39.0 [place] [address] [place] [address] 17777- 0757 October, [place] [address] [place] [address] 82848- 0878 Sep, Type 2 diabetes mellitus with unspecified complications E11.8 ; Essential hypertension I10 ; COPD (chronic obstructive pulmonary disease ) J44.9 and Hospital discharge follow-up Z09 [place] [address] [place] [address] 73757- 7508 Sep, [place] [address] [place] [address] 80762- 1651 Sep, Dyspnea R06.00 ; Other chronic pain G89.29 ; Dysuria R30.0 ; Diaphoresis R61 ; Jaundice R17 ; COPD (chronic obstructive pulmonary disease) J44.9 ; Type 2 diabetes mellitus with unspecified complications E11.8 ; Excessive daytime sleepiness G47.19 and Oliguria R34 [place] [address] [place] [address] 00281- 5143 Sep, [place] [address] [place] [address] 52632- 8092 Sep, Essential hypertension I10 ; Anxiety associated with depression F41.8 ; Mixed hyperlipidemia E78.2 ; Dyspnea R06.00 ; Shortness of breath R06.02 and Chest pain, unspecified R07.9 [place] [address] [place] [address] 45045- 3897 Sep, Chest pain R07.9 ; Hyperlipemia E78.5 ; Type 2 diabetes mellitus with unspecified complications E11.8 ; Essential hypertension I10 ; Other chronic pain G89.29 ; Anxiety associated with depression F41.8 ; COPD ( chronic obstructive pulmonary disease) J44.9 ; Low vitamin D level E55.9 ; Tobacco abuse Z72.0 ; Hypertriglyceridemia E78.1 and Abnormal laboratory test R89.[address] 97213- 1892 Aug, Pneumonia J18.9 ; Hypertriglyceridemia E78.1 ; COPD ( chronic obstructive pulmonary disease) J44.9 and Hyperlipidemia E78.[address] 14601- 5458 Aug, Shortness of breath R06.02 ; Anxiety associated with depression F41.8 and Chest pain, unspecified R07.9 [place] [id number] [place] [address] 17734- 3349 Jul, [place] [id number] [place] [address] 27759- 9176 Jun, Anxiety associated with depression F41.8 ; [...] unspecified type R11.2 and Tobacco abuse Z72.0 [place] [id number] [place] [address] 36163- 1425 May, Hyperlipemia E78.[address], [place] [address]- 9174 May, [place] [id number] [place] [address] 42269- 0100 May, Type 2 diabetes mellitus with unspecified complications E11.8 [place] [id number] [place] [address] 71654- 9722 May, [place] [id number] [place] [address] 66939- 5824 May, Anxiety associated with depression F41.8 ; Type 2 diabetes mellitus with unspecified complications E11.8 ; Essential hypertension I10 ; Peripheral neuropathy G62.9 ; Low back pain M54.5 ; Other chronic pain G89.29 ; GERD (gastroesophageal reflux disease) K21.9 ; Insomnia G47.00 ; COPD (chronic obstructive pulmonary disease) J44.9 ; URI (upper respiratory infection) J06.9 and Depression F32.9 [place] [id number] [place] [address] 87333- 1090 May, Low back pain M54.5 ; Anxiety about health F41.8 ; Generalized anxiety disorder F41.1 and Acute stress reaction F43.0 [address] [place] [address] 70487- 2312 May, [address] [place] [address] 76925- 1439 Apr, Diabetes E11.9 ; Type 2 diabetes mellitus with unspecified complications E11.8 ; Essential hypertension I10 ; Peripheral neuropathy G62.9 ; Low back pain M54.5 ; Other chronic pain G89.29 ; GERD (gastroesophageal reflux disease) K21.9 ; Anxiety associated with depression F41.8 ; Muscle spasm of calf M62.831 ; Insomnia G47.00 and COPD (chronic obstructive pulmonary disease) J44.9 [place] [address] [place] [address] 48136- 9319 May, [place] [id number] [place] [address] 18797- 1646 May, IMMUNIZATIONS No Known Immunizations SOCIAL HISTORY [...]
--- OUTSIDE RECORDS SUMMARY | 2018-02-26 15:16 | XMS REPORT ---
Author Author KATIE JEFFRIES Organization [facility] Address [address] [place] [address] Care Team Providers Care Optometric Coordinator Name Role Phone MERVIN KATIE Unavailable PROBLEMS Type Condition ICD9-CM Code CIZ41-AF Code Onset Dates Condition Status SNOMED Code Problem Other chronic pain G89.29 Active 30436040 Problem Insomnia G47.00 Active 856277440 Problem Type 2 diabetes mellitus with unspecified complications E11.8 Active 39232458 Problem Constipation by delayed colonic transit K59.01 Active 76599919 Problem Chronic kidney disease (CKD) stage G3b/A1, moderately decreased glomerular filtration rate (GFR) between 30-44 mL/min/1.73 square meter and albuminuria creatinine ratio less than 30 mg/g N18.3 Active 012418845 Problem Mixed hyperlipidemia E78.2 Active 524461677 Problem Controlled substance agreement signed Z79.899 Active 638412224 Problem 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 Active 64265059 Problem Vitamin D deficiency E55.9 Active 49843536 Problem Peripheral neuropathy G62.9 Active 78052824 Problem Essential hypertension I10 Active 75581339 Problem Osteoarthritis of acromioclavicular joint M19.019 Active 326698848 Problem COPD (chronic obstructive pulmonary disease) J44.9 Active 92982395 Problem Anxiety associated with depression F41.8 Active 559054294 Problem GERD (gastroesophageal reflux disease) K21.9 Active 694550489 ALLERGIES No Information ENCOUNTERS Encounter Location Date Diagnosis [facility] [id number] [address] Feb, [facility] [address] [address] 08 Feb, 2018 Other chronic pain G89.29 and Anxiety associated with depression F41.8 [facility] [id number] [place] [address] 13350- 3896 Jan, [facility] [address] [address] 57[address] Jan, Type 2 diabetes mellitus with unspecified complications E11.8 [facility] [address] [address] 5552 Jan, [facility] [id number] [place] [address] 14649- 5929 Jan, Other chronic pain G89.29 and Anxiety associated with depression F41.8 [facility] [address] [address] 5[address] Jan, [facility] [id number] [place] [address] 18792- 1800 Dec, [facility] [id number] [address] 4144 Dec, Type 2 diabetes mellitus with unspecified [...] and 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 [facility] [address] [address] 0076 Dec, [facility] [address] [address]- 3805 Dec, Type 2 diabetes mellitus with unspecified complications E11.8 [facility] [address] [address] 4531 Dec, [facility] [address] [address]- 4632 Dec, Type 2 diabetes mellitus with unspecified complications E11.8 [facility] [address] [address]- 8805 Dec, Type 2 diabetes mellitus with unspecified complications E11.8 [facility] [address] [facility] [id number] [place] [address] 9116 Dec, [facility] [address] [facility] [id number] [place] [address]- 5240 Dec, Type 2 diabetes mellitus with unspecified complications E11.8 [facility] [address] [facility] [id number] [address] 8577 Dec, [facility] [address] [facility] [id number] [place] [address]- 0984 Dec, [facility] [id number] [address]- 8343 Dec, [facility] [address] [address]- 0035 Dec, [facility] [address] [address]- 5690 Dec, [facility] [address] [address]- 5995 Dec, Other chronic pain G89.29 and Anxiety associated with depression F41.8 [facility] [id number] [address]- 1067 Dec, Type 2 diabetes mellitus with unspecified complications E11.8 [facility] [id number] [address]- 2186 Nov, [facility] [address] [facility] [id number] [address]- 1783 Nov, [facility] [address] [address]- 8516 Nov, [facility] [id number] [address]- 1475 Nov, [facility] [id number] [address]- 0208 Nov, Type 2 diabetes mellitus with unspecified complications E11.8 [facility] [address] [address]- 1861 Nov, [facility] [address] [address]- 8272 Nov, Type 2 diabetes mellitus with unspecified complications E11.8 [facility] [address] [address]- 4924 Nov, Other chronic pain G89.29 and Anxiety associated with depression F41.8 [facility] [address] [address]- 8[address] 08 Nov, 2017 Chronic renal insufficiency N18.9 [facility] [address] [address]- 6976 07 Nov, 2017 Other chronic pain G89.29 [facility] [address] [address]- 5426 Nov, Type 2 diabetes mellitus with unspecified complications E11.8 [facility] [address] [address]- 7923 October, [facility] [address] [address]- 5480 October, [facility] [address] [address]- 5724 October, Type 2 diabetes mellitus with unspecified complications E11.8 [facility] [address] [address]- 4987 October, [facility] [address] [address]- 2212 October, [facility] [address] [address]- 4566 October, Type 2 diabetes mellitus with unspecified complications E11.8 [facility] [id number] [address]- 5162 October, [facility] [id number] [place] [address] 20405- 7360 October, [facility] [id number] [place] [address] 11583- 2723 October, Type 2 diabetes mellitus with unspecified complications E11.8 [facility] [id number] [place] [address] 76991- 6800 October, Type 2 diabetes mellitus with unspecified complications E11.8 ; Essential hypertension I10 ; Chronic renal insufficiency N18.9 ; BMI 40.0-44.9, adult Z68.41 ; Other chronic pain G89.29 ; Anxiety associated with depression F41.8 and Right medial knee pain M25.561 [address] [place] [id number] [place] [address] 50870- 1960 October, GERD (gastroesophageal reflux disease) K21.9 and Anxiety associated with depression F41.8 [facility] [id number] [place] [address] 82493- 6627 October, Anxiety associated with depression F41.8 [facility] [facility] [id number] [place] [address] 15808- 9736 Sep, [place] [id number] [place] [address] 11277- 6026 Sep, GERD (gastroesophageal reflux disease) K21.9 and Anxiety associated with depression F41.8 [facility] [address] [address]- 1395 Aug, [facility] [id number] [place] [address] 60795- 5088 Aug, [facility] [id number] [place] [address] 80167 -3784 Aug, Acute recurrent maxillary sinusitis J01.01 [place] [id number] [place] [address] 41568- 2209 Aug, [facility] [address] [address]- 1093 Aug, GERD (gastroesophageal reflux disease) K21.9 and Other chronic pain G89.29 [facility] [address] [address]- 5626 Aug, [facility] [id number] [place] [address] 26554 -9665 Aug, [facility] [id number] [place] [address] 79447- 6088 Aug, Controlled substance agreement signed Z79.899 ; [...] Enlarged lymph nodes in armpit R59.0 [facility] [id number] [place] [address] 72914- 1094 Aug, Anxiety associated with depression F41.8 and GERD ( gastroesophageal reflux disease) K21.9 [facility] [address] [address]- 1275 Jul, Controlled substance agreement signed Z79.899 [facility] [id number] [place] [address] 98912- 8838 Jun, Anxiety associated with depression F41.8 and GERD ( gastroesophageal reflux disease) K21.9 [place] [place] [id number] [place] [address] 06532- 7484 May, Anxiety associated with depression F41.8 and GERD ( gastroesophageal reflux disease) K21.9 [facility] [id number] [place] [address] 89007- 7194 Apr, Mixed hyperlipidemia E78.2 [facility] [id number] [place] [address] 20837- 2192 Apr, Anxiety associated with depression F41.8 and GERD ( gastroesophageal reflux disease) K21.9 [facility] [facility] [id number] [place] [address] 82941- 9380 Apr, [facility] [facility] [id number] [place] [address] 67941- 5034 Apr, Type 2 diabetes mellitus with unspecified complications E11.8 [facility] [id number] [place] [address] 33011- 4251 Apr, [facility] [facility] [id number] [place] [address] 64256- 2559 Apr, Type 2 diabetes mellitus with unspecified complications E11.8 [id number] [place] [address] 06343- 6341 Apr, [facility] [facility] [id number] [place] [address] 04487- 2645 Mar, GERD (gastroesophageal reflux disease) K21.9 and Anxiety associated with depression F41.8 [address] [place] [id number] [place] [address] 48513- 8026 Mar, 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 [id number] [place] [address] 89606- 0837 Mar, Essential hypertension I10 ; Anxiety associated with depression F41.8 ; COPD (chronic obstructive pulmonary disease) J44.9 ; Mixed hyperlipidemia E78.2 ; Vitamin D deficiency E55.9 ; GERD (gastroesophageal reflux disease) K21.9 ; Type 2 diabetes mellitus with unspecified complications E11.8 ; Other chronic pain G89.29 and Chronic renal insufficiency N18.9 [address] [place] [id number] [place] [address] 77438- 9355 Mar, Chronic renal insufficiency N18.9 [facility] [id number] [place] [address] 55974- 9205 Feb, GERD (gastroesophageal reflux disease) K21.9 and Type 2 diabetes mellitus with unspecified complications E11.8 [address] [place] [id number] [place] [address] 95508- 7960 Feb, Anxiety associated with depression F41.8 and Tear of left supraspinatus tendon, subsequent encounter S46.812D [place] [id number] [place] [address] 57611- 6628 Jan, Pre-operative examination for internal medicine Z01.818 [address] [place] [id number] [place] [address] 10124- 2513 Jan, Anxiety associated with depression F41.8 and Left anterior shoulder pain M25.512 [address] [place] [id number] [place] [address] 03953- 1282 Jan, [facility] [facility] [id number] [place] [address] 37128- 6979 Jan, [address] [id number] [place] [address] 11644- 6842 Jan, Type 2 diabetes mellitus with unspecified complications E11.8 ; Essential hypertension I10 ; Other chronic pain G89.29 ; GERD ( gastroesophageal reflux disease) K21.9 ; Anxiety associated with depression F41.8 ; Insomnia G47.00 ; Hypertriglyceridemia E78.1 ; Left anterior shoulder pain M25.512 and Tobacco abuse Z72.0 [address] [place] [id number] [place] [address] 24286- 9244 Dec, Anxiety associated with depression F41.8 and Tear of left supraspinatus tendon, subsequent encounter S46.812D [place] [id number] [place] [address] 33402- 1896 Nov, [address] [id number] [place] [address] 60038- 6910 14 Nov, 2016 Anxiety associated with depression F41.8 and Tear of left supraspinatus tendon, subsequent encounter S46.812D [address] [place] [id number] [place] [address] 44242- 8770 Nov, Abnormal lung sounds R09.89 and COPD (chronic obstructive pulmonary disease) with acute bronchitis J44.0 [address] [place] [id number] [place] [address] 91266- 0214 Nov, [address] [address] 52958- 1421 October, COPD (chronic obstructive pulmonary disease) with acute bronchitis J44.0 ; Abnormal lung sounds R09.89 and Medication refill Z76.0 [address] [place] [address] 93600- 7629 October, Anxiety associated with depression F41.8 [address] [id number] [place] [address] 58039- 1593 Sep, Nausea and vomiting, unspecified intactability, vomiting of unspecified type R11.2 [address] [id number] [place] [address] 26169- 0704 Sep, COPD (chronic obstructive pulmonary disease) J44.9 ; Tobacco abuse Z72.0 ; Tear of left supraspinatus tendon, subsequent encounter S46.812D and Type 2 diabetes mellitus with unspecified complications E11.8 [address] [id number] [place] [address] 38200- 9105 Sep, [place] [id number] [place] [address] 80711- 3142 Aug, Left anterior shoulder pain M25.512 [address] [place] [id number] [place] [address] 18748- 2655 Aug, Left anterior shoulder pain M25.512 and Low back pain M54.5 [address] [id number] [place] [address] 08443- 5199 Aug, [address] [address] 38022- 5560 Aug, [address] [address] [address]- 3042 Aug, [facility] [id number] [place] [address] 91226- 7961 Aug, [facility] [id number] [place] [address] 92935- 9840 Aug, Type 2 diabetes mellitus with unspecified complications E11.8 [place] [id number] [place] [address] 03545- 4641 Aug, Type 2 diabetes mellitus with unspecified [...] E55.9 and GERD (gastroesophageal reflux disease) K21.9 [address] [place] [id number] [place] [address] 20230- 2291 Aug, [address] [id number] [place] [address] 62897- 9152 May, [address] [place] [id number] [place] [address] 37266- 0282 Apr, [place] [id number] [place] [address] 57953- 5383 Apr, Type 2 diabetes mellitus with unspecified [...] S49.92XA and Anxiety associated with depression F41.8 [id number] [address]- 2287 Apr, [facility] [address] [address]- 6804 Apr, [facility] [address] [address]- 1936 Apr, [facility] [address] [address]- 5396 Mar, [facility] [address] [address]- 8412 Feb, [facility] [address] [address]- 3395 Feb, [facility] [address] [address]- 5327 Jan, [facility] [address] [address]- 3037 Jan, [facility] [address] [address]- 9071 Jan, Type 2 diabetes mellitus with unspecified complications E11.8 ; Essential hypertension I10 and Vitamin D deficiency E55.9 [facility] [id number] [address]- 9931 Dec, Type 2 diabetes mellitus with unspecified complications E11.8 ; Essential hypertension I10 ; Other chronic pain G89.29 ; Anxiety associated with depression F41.8 ; Bronchitis J40 ; Vitamin D deficiency E55.9 and COPD (chronic obstructive pulmonary disease) J44.9 [facility] [address] [address]- 8614 Nov, [facility] [address] [address]- 7146 October, [facility] [id number] [address]- 6419 October, [facility] [id number] [place] [address] 46679- 4397 October, [facility] [id number] [place] [address] 02469- 4327 October, Dysuria R30.0 ; Bronchitis J40 ; Anxiety associated with depression F41.8 and Type 2 diabetes mellitus with unspecified complications E11.8 [place] [id number] [place] [address] 45621- 1069 October, Chronic renal insufficiency N18.9 ; Elevated white blood cell count D72.829 and Frequent UTI N39.0 [place] [id number] [place] [address] 82259- 7943 October, Chronic renal insufficiency N18.9 ; Elevated white blood cell count D72.829 and Frequent UTI N39.0 [place] [id number] [place] [address] 40412- 1652 October, [place] [id number] [place] [address] 58522- 2844 Sep, Type 2 diabetes mellitus with unspecified complications E11.8 ; Essential hypertension I10 ; COPD (chronic obstructive pulmonary disease ) J44.9 and Hospital discharge follow-up Z09 [place] [id number] [place] [address] 42499- 2256 Sep, [place] [id number] [place] [address] 14615- 0721 Sep, Dyspnea R06.00 ; Other chronic pain G89.29 ; Dysuria R30.0 ; Diaphoresis R61 ; Jaundice R17 ; COPD (chronic obstructive pulmonary disease) J44.9 ; Type 2 diabetes mellitus with unspecified complications E11.8 ; Excessive daytime sleepiness G47.19 and Oliguria R34 [place] [id number] [place] [address] 68978- 7331 Sep, [place] [id number] [place] [address] 42495- 0507 Sep, Essential hypertension I10 ; Anxiety associated with depression F41.8 ; Mixed hyperlipidemia E78.2 ; Dyspnea R06.00 ; Shortness of breath R06.02 and Chest pain, unspecified R07.9 [place] [id number] [place] [address] 27109- 1908 Sep, Chest pain R07.9 ; Hyperlipemia E78.5 ; Type 2 diabetes mellitus with unspecified complications E11.8 ; Essential hypertension I10 ; Other chronic pain G89.29 ; Anxiety associated with depression F41.8 ; COPD ( chronic obstructive pulmonary disease) J44.9 ; Low vitamin D level E55.9 ; Tobacco abuse Z72.0 ; Hypertriglyceridemia E78.1 and Abnormal laboratory test R89.[address] 98922- 3575 Aug, Pneumonia J18.9 ; Hypertriglyceridemia E78.1 ; COPD ( chronic obstructive pulmonary disease) J44.9 and Hyperlipidemia E78.[address] 27160- 9635 Aug, Shortness of breath R06.02 ; Anxiety associated with depression F41.8 and Chest pain, unspecified R07.9 [place] [id number] [place] [address] 98017- 1599 Jul, [place] [id number] [place] [address] 15235- 0802 Jun, Anxiety associated with depression F41.8 ; [...] unspecified type R11.2 and Tobacco abuse Z72.0 [place] [id number] [place] [address] 64502- 0403 May, Hyperlipemia E78.[address] [address]- 2597 May, [place] [id number] [place] [address] 24027- 6000 May, Type 2 diabetes mellitus with unspecified complications E11.8 [place] [id number] [place] [address] 26552- 8214 May, [place] [id number] [place] [address] 22465- 1599 May, Anxiety associated with depression F41.8 ; Type 2 diabetes mellitus with unspecified complications E11.8 ; Essential hypertension I10 ; Peripheral neuropathy G62.9 ; Low back pain M54.5 ; Other chronic pain G89.29 ; GERD (gastroesophageal reflux disease) K21.9 ; Insomnia G47.00 ; COPD (chronic obstructive pulmonary disease) J44.9 ; URI (upper respiratory infection) J06.9 and Depression F32.9 [place] [id number] [place] [address] 96965- 1156 May, Low back pain M54.5 ; Anxiety about health F41.8 ; Generalized anxiety disorder F41.1 and Acute stress reaction F43.[address] [place] [address] 52582- 4257 May, [address] [place] [address] 46139- 1103 Apr, Diabetes E11.9 ; Type 2 diabetes mellitus with unspecified complications E11.8 ; Essential hypertension I10 ; Peripheral neuropathy G62.9 ; Low back pain M54.5 ; Other chronic pain G89.29 ; GERD (gastroesophageal reflux disease) K21.9 ; Anxiety associated with depression F41.8 ; Muscle spasm of calf M62.831 ; Insomnia G47.00 and COPD (chronic obstructive pulmonary disease) J44.9 [place] [id number] [place] [address] 22516- 0758 May, [place] [id number] [place] [address] 60787- 2336 May, IMMUNIZATIONS No Known Immunizations SOCIAL HISTORY [...]
--- OUTSIDE RECORDS SUMMARY | 2018-02-26 15:17 | XMS REPORT ---
Author Author KATIE JEFFRIES Organization [facility] Address [address] [place] [address] Care Team Providers Care Electronic Warfare Operator Name Role Phone KATIE JEFFRIES Unavailable PROBLEMS Type Condition ICD9-CM Code MYP19-BX Code Onset Dates Condition Status SNOMED Code Problem Other chronic pain G89.29 Active 45677340 Problem Insomnia G47.00 Active 582355333 Problem Type 2 diabetes mellitus with unspecified complications E11.8 Active 33856983 Problem Constipation by delayed colonic transit K59.01 Active 88608734 Problem Chronic kidney disease (CKD) stage G3b/A1, moderately decreased glomerular filtration rate (GFR) between 30-44 mL/min/1.73 square meter and albuminuria creatinine ratio less than 30 mg/g N18.3 Active 924876561 Problem Mixed hyperlipidemia E78.2 Active 529132970 Problem Controlled substance agreement signed Z79.899 Active 571287778 Problem 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 Active 86092261 Problem Vitamin D deficiency E55.9 Active 34058459 Problem Peripheral neuropathy G62.9 Active 83369151 Problem Essential hypertension I10 Active 88874945 Problem Osteoarthritis of acromioclavicular joint M19.019 Active 741663074 Problem COPD (chronic obstructive pulmonary disease) J44.9 Active 80765878 Problem Anxiety associated with depression F41.8 Active 654468942 Problem GERD (gastroesophageal reflux disease) K21.9 Active 406914442 ALLERGIES No Information ENCOUNTERS Encounter Location Date Diagnosis [facility] [id number], [place] [address] Feb, Other chronic pain G89.29 and Anxiety associated with depression F41.8 [facility] [id number], [place] [address] Jan, [facility] [address] [place] [address] 68270- 2692 Jan, Type 2 diabetes mellitus with unspecified complications E11.8 [address], [place] [address] Jan, [facility] [id number] [place] [address] 08487- 4065 Jan, Other chronic pain G89.29 and Anxiety associated with depression F41.8 [address] [place] [id number] [place] [address] 03369- 4606 Jan, [address] [id number] [place] [address] 05232- 4088 Dec, [id number] [place] [address] 12458- 0838 Dec, Type 2 diabetes mellitus with unspecified [...] and 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 [address], [place] [address] Dec, [address], [place] [address] 25[address] Dec, Type 2 diabetes mellitus with unspecified complications E11.8 [address], [place] [address] 3[address] Dec, [address] [id number] [place] [address] 96067- 9721 Dec, Type 2 diabetes mellitus with unspecified complications E11.8 [address] [address] 4831 Dec, Type 2 diabetes mellitus with unspecified complications E11.8 [facility] [id number] [address] 6[address] Dec, [facility] [address], [place] [address] 5638 Dec, Type 2 diabetes mellitus with unspecified complications E11.8 [facility] [address] [address] 4588 Dec, [facility] [address], [place] [address] 3962 Dec, [facility] [id number] [address]- 5271 Dec, [facility] [address], [place] [address]- 9470 Dec, [facility] [address], [place] [address] 6[address] Dec, [facility] [address], [place] [address] 1860 Dec, Other chronic pain G89.29 and Anxiety associated with depression F41.8 [facility] [address], [place] [address]- 5955 Dec, Type 2 diabetes mellitus with unspecified complications E11.8 [facility] [address], [place] [address] 5749 Nov, [facility] [address], [place] [address]- 0105 Nov, [facility] [id number], [place] [address]- 9700 Nov, [facility] [address], [place] [address]- 0783 Nov, [facility] [id number], [place] [address]- 3429 Nov, Type 2 diabetes mellitus with unspecified complications E11.8 [facility] [address] [facility] [id number] [address] Nov, [facility] [address] [facility] [id number] [place] [address]- 7986 Nov, Type 2 diabetes mellitus with unspecified complications E11.8 [facility] [address] [facility] [id number] [place] [address]- 3686 11 Nov, 2017 Other chronic pain G89.29 and Anxiety associated with depression F41.8 [facility] [address] [facility] [id number] [place] [address]- 8647 08 Nov, 2017 Chronic renal insufficiency N18.9 [facility] [address] [facility] [id number] [place] [address]- 4759 07 Nov, 2017 Other chronic pain G89.29 [facility] [id number] [address]- 3357 Nov, Type 2 diabetes mellitus with unspecified complications E11.8 [facility] [address] [facility] [id number] [place] [address]- 5652 October, [facility] [id number] [address]- 4976 October, [facility] [id number], [place] [address]- 6232 October, Type 2 diabetes mellitus with unspecified complications E11.8 [facility] [address], [place] [address]- 5213 October, [facility] [address] [facility] [id number], [place] [address]- 1637 October, [facility] [address] [facility] [id number] [place] [address]- 8986 October, Type 2 diabetes mellitus with unspecified complications E11.8 [facility] [id number] [address]- 4496 October, [facility] [id number] [place] [address] 10147- 0590 October, [address] [address] [id number] [place] [address] 03791- 9498 October, Type 2 diabetes mellitus with unspecified complications E11.8 [address] [id number] [place] [address] 14016- 2629 October, Type 2 diabetes mellitus with unspecified complications E11.8 ; Essential hypertension I10 ; Chronic renal insufficiency N18.9 ; BMI 40.0-44.9, adult Z68.41 ; Other chronic pain G89.29 ; Anxiety associated with depression F41.8 and Right medial knee pain M25.561 [address] [address]85- 6609 October, GERD (gastroesophageal reflux disease) K21.9 and Anxiety associated with depression F41.8 [address] [address] 23669- 1246 October, Anxiety associated with depression F41.8 [address] [id number] [place] [address] 15877- 1121 Sep, [address] 36628- 8847 Sep, GERD (gastroesophageal reflux disease) K21.9 and Anxiety associated with depression F41.8 [address] [id number] [place] [address] 74749- 1687 Aug, [address] [id number] [place] [address] 13526- 7295 Aug, [facility] [id number] [place] [address] 93009 -5048 Aug, Acute recurrent maxillary sinusitis J01.01 [address] [id number] [place] [address] 98567- 1742 Aug, [address] [id number] [place] [address] 72166- 3648 Aug, GERD (gastroesophageal reflux disease) K21.9 and Other chronic pain G89.29 [facility] [address] [place] [address] 98874- 4504 Aug, [facility] [address] [place] [address] 24801 -5744 Aug, [facility] [id number] [place] [address] 97655- 6298 Aug, Controlled substance agreement signed Z79.899 ; [...] and Enlarged lymph nodes in armpit R59.0 [facility] [address] [place] [address] 44560- 0863 Aug, Anxiety associated with depression F41.8 and GERD ( gastroesophageal reflux disease) K21.9 [facility] [address] [place] [address] 08634- 1334 Jul, Controlled substance agreement signed Z79.899 [facility] [address] [place] [address] 34467- 9615 Jun, Anxiety associated with depression F41.8 and GERD ( gastroesophageal reflux disease) K21.9 [facility] [address] [place] [address] 22755- 0461 May, Anxiety associated with depression F41.8 and GERD ( gastroesophageal reflux disease) K21.9 [facility] [address] [place] [address] 76641- 0903 Apr, Mixed hyperlipidemia E78.2 [facility] [id number] [place] [address] 61640- 3622 Apr, Anxiety associated with depression F41.8 and GERD ( gastroesophageal reflux disease) K21.9 [address] [place] [id number] [place] [address] 35940- 2862 Apr, [address] [id number] [place] [address] 36665- 2064 Apr, Type 2 diabetes mellitus with unspecified complications E11.8 [address] [id number] [place] [address] 52604- 9283 Apr, [address] [id number] [place] [address] 48370- 8951 Apr, Type 2 diabetes mellitus with unspecified complications E11.8 [address] [id number] [place] [address] 30253- 2438 Apr, [address] [id number] [place] [address] 69301- 2797 Mar, GERD (gastroesophageal reflux disease) K21.9 and Anxiety associated with depression F41.8 [address] [id number] [place] [address] 54965- 9727 Mar, 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 [address] [id number] [place] [address] 98763- 8184 Mar, Essential hypertension I10 ; Anxiety associated with depression F41.8 ; COPD (chronic obstructive pulmonary disease) J44.9 ; Mixed hyperlipidemia E78.2 ; Vitamin D deficiency E55.9 ; GERD (gastroesophageal reflux disease) K21.9 ; Type 2 diabetes mellitus with unspecified complications E11.8 ; Other chronic pain G89.29 and Chronic renal insufficiency N18.9 [address] [place] [id number] [place] [address] 12166- 7842 Mar, Chronic renal insufficiency N18.9 [place] [id number] [place] [address] 32895- 2413 Feb, GERD (gastroesophageal reflux disease) K21.9 and Type 2 diabetes mellitus with unspecified complications E11.8 [address] [place] [address] 90342- 4278 Feb, Anxiety associated with depression F41.8 and Tear of left supraspinatus tendon, subsequent encounter S46.812D [address], [place] [address]- 5659 Jan, Pre-operative examination for internal medicine Z01.818 [address] [id number] [place] [address] 11891- 9335 Jan, Anxiety associated with depression F41.8 and Left anterior shoulder pain M25.512 [address] [id number] [place] [address] 37578- 5730 Jan, [address] [place] [id number] [place] [address] 34228- 6987 Jan, [id number] [place] [address] 64594- 9011 Jan, Type 2 diabetes mellitus with unspecified complications E11.8 ; Essential hypertension I10 ; Other chronic pain G89.29 ; GERD ( gastroesophageal reflux disease) K21.9 ; Anxiety associated with depression F41.8 ; Insomnia G47.00 ; Hypertriglyceridemia E78.1 ; Left anterior shoulder pain M25.512 and Tobacco abuse Z72.0 [address], [place] [address]- 6718 Dec, Anxiety associated with depression F41.8 and Tear of left supraspinatus tendon, subsequent encounter S46.812D [address] [place] [address] 57657- 2099 Nov, [address] [id number] [place] [address] 70207- 0940 Nov, Anxiety associated with depression F41.8 and Tear of left supraspinatus tendon, subsequent encounter S46.812D [address] [place] [address] 96188- 8282 Nov, Abnormal lung sounds R09.89 and COPD (chronic obstructive pulmonary disease) with acute bronchitis J44.0 [address] 22661- 8668 Nov, [address] [place] 69458- 5655 October, COPD (chronic obstructive pulmonary disease) with acute bronchitis J44.0 ; Abnormal lung sounds R09.89 and Medication refill Z76.0 [address] [place] 81538- 5462 October, Anxiety associated with depression F41.8 [address] [place] [address] 88815- 8037 Sep, Nausea and vomiting, unspecified intactability, vomiting of unspecified type R11.[address] 82026- 6367 Sep, COPD (chronic obstructive pulmonary disease) J44.9 ; Tobacco abuse Z72.0 ; Tear of left supraspinatus tendon, subsequent encounter S46.812D and Type 2 diabetes mellitus with unspecified complications E11.8 [address] [place] 80626- 4072 Sep, [address] [address] 70918- 1833 Aug, Left anterior shoulder pain M25.512 [address] [place] [address] 28328- 9015 Aug, Left anterior shoulder pain M25.512 and Low back pain M54.5 [address] 30418- 1348 Aug, [address] [place] [address] 47978- 4187 Aug, [address] [address] 08292- 3686 Aug, [address] [id number] [place] [address] 59466- 9215 Aug, [id number] [place] [address] 34736- 8285 Aug, Type 2 diabetes mellitus with unspecified complications E11.8 [id number] [place] [address] 61044- 7280 Aug, Type 2 diabetes mellitus with unspecified [...] E55.9 and GERD (gastroesophageal reflux disease) K21.9 [id number] [place] [address] 04671- 9379 Aug, [address] [id number] [place] [address] 44034- 0395 May, [address] 04427- 5425 Apr, [id number] [place] [address] 73919- 9580 Apr, Type 2 diabetes mellitus with unspecified [...] S49.92XA and Anxiety associated with depression F41.8 [id number] [place] [address] 08412- 3181 Apr, [address] [place] [address]- 0094 Apr, [facility] [address], [place] [address]- 2871 Apr, [facility] [address] [address] 2833 Mar, [facility] [address], [place] [address]- 4994 Feb, [facility] [address], [place] [address]- 3386 Feb, [facility] [address], [place] [address]- 3282 Jan, [facility] [address], [place] [address]- 1354 Jan, [facility] [address], [place] [address]- 0965 Jan, Type 2 diabetes mellitus with unspecified complications E11.8 ; Essential hypertension I10 and Vitamin D deficiency E55.9 [facility] [address], [place] [address]- 7138 Dec, Type 2 diabetes mellitus with unspecified complications E11.8 ; Essential hypertension I10 ; Other chronic pain G89.29 ; Anxiety associated with depression F41.8 ; Bronchitis J40 ; Vitamin D deficiency E55.9 and COPD (chronic obstructive pulmonary disease) J44.9 [facility] [address], [place] [address]- 8776 Nov, [facility] [id number], [place] [address]- 8055 October, [facility] [address], [place] [address]- 8353 October, [facility] [id number], [place] [address]- 5617 October, [facility] [address] [place] [address] 31705- 8081 October, Dysuria R30.0 ; Bronchitis J40 ; Anxiety associated with depression F41.8 and Type 2 diabetes mellitus with unspecified complications E11.8 [address] [id number] [place] [address] 56819- 8513 October, Chronic renal insufficiency N18.9 ; Elevated white blood cell count D72.829 and Frequent UTI N39.0 [address] [address] 84018- 4355 October, Chronic renal insufficiency N18.9 ; Elevated white blood cell count D72.829 and Frequent UTI N39.0 [place] [id number] [place] [address] 19945- 9049 October, [place] [id number] [place] [address] 65530- 8189 Sep, Type 2 diabetes mellitus with unspecified complications E11.8 ; Essential hypertension I10 ; COPD (chronic obstructive pulmonary disease ) J44.9 and Hospital discharge follow-up Z09 [place] [id number] [place] [address] 14256- 2849 Sep, [place] [id number] [place] [address] 58686- 3001 Sep, Dyspnea R06.00 ; Other chronic pain G89.29 ; Dysuria R30.0 ; Diaphoresis R61 ; Jaundice R17 ; COPD (chronic obstructive pulmonary disease) J44.9 ; Type 2 diabetes mellitus with unspecified complications E11.8 ; Excessive daytime sleepiness G47.19 and Oliguria R34 [place] [id number] [place] [address] 95498- 4604 Sep, [address] 07525- 2535 Sep, Essential hypertension I10 ; Anxiety associated with depression F41.8 ; Mixed hyperlipidemia E78.2 ; Dyspnea R06.00 ; Shortness of breath R06.02 and Chest pain, unspecified R07.9 [id number] [place] [address] 15766- 2140 Sep, Chest pain R07.9 ; Hyperlipemia E78.5 ; Type 2 diabetes mellitus with unspecified complications E11.8 ; Essential hypertension I10 ; Other chronic pain G89.29 ; Anxiety associated with depression F41.8 ; COPD ( chronic obstructive pulmonary disease) J44.9 ; Low vitamin D level E55.9 ; Tobacco abuse Z72.0 ; Hypertriglyceridemia E78.1 and Abnormal laboratory test R89.[address] 11343- 8481 Aug, Pneumonia J18.9 ; Hypertriglyceridemia E78.1 ; COPD ( chronic obstructive pulmonary disease) J44.9 and Hyperlipidemia E78.[address] 36931- 4675 Aug, Shortness of breath R06.02 ; Anxiety associated with depression F41.8 and Chest pain, unspecified R07.[address] 81647- 0964 Jul, [address] 97838- 2629 Jun, Anxiety associated with depression F41.8 ; [...] unspecified type R11.2 and Tobacco abuse Z72.[address] 59987- 7206 May, Hyperlipemia E78.[address] 36103- 8607 May, [address] [place] [address] 73677- 5628 May, Type 2 diabetes mellitus with unspecified complications E11.8 [place] [id number] [place] [address] 27390- 4025 May, [place] [id number] [place] [address] 81836- 2138 May, Anxiety associated with depression F41.8 ; Type 2 diabetes mellitus with unspecified complications E11.8 ; Essential hypertension I10 ; Peripheral neuropathy G62.9 ; Low back pain M54.5 ; Other chronic pain G89.29 ; GERD (gastroesophageal reflux disease) K21.9 ; Insomnia G47.00 ; COPD (chronic obstructive pulmonary disease) J44.9 ; URI (upper respiratory infection) J06.9 and Depression F32.9 [id number] [place] [address] 51403- 0780 May, Low back pain M54.5 ; Anxiety about health F41.8 ; Generalized anxiety disorder F41.1 and Acute stress reaction F43.0 [place] [id number] [place] [address] 82794- 4731 May, [id number] [place] [address] 69018- 7302 Apr, Diabetes E11.9 ; Type 2 diabetes mellitus with unspecified complications E11.8 ; Essential hypertension I10 ; Peripheral neuropathy G62.9 ; Low back pain M54.5 ; Other chronic pain G89.29 ; GERD (gastroesophageal reflux disease) K21.9 ; Anxiety associated with depression F41.8 ; Muscle spasm of calf M62.831 ; Insomnia G47.00 and COPD (chronic obstructive pulmonary disease) J44.9 [id number] [place] [address] 57648- 3479 May, [id number] [place] [address] 60903- 3701 May, IMMUNIZATIONS No Known Immunizations SOCIAL HISTORY Never Assessed REASON FOR VISIT insulin PLAN OF CARE VITAL SIGNS MEDICATIONS Medication Instructions Dosage Frequency Start Date End Date Duration Status NovoLog Flexpen 100 UNIT/ML Subcutaneous 3 times a day 18 units three times with meals 8h October, Active Levemir Flexpen 100 UNIT/ML Subcutaneous 2 times a day 25 units twice a day 12h October, Active [...]
--- OUTSIDE RECORDS SUMMARY | 2018-02-26 15:17 | XMS REPORT ---
Author Author KATIE JEFFRIES Organization [facility] Address [address] [place] [address] Care Team Providers [employer] Name Role Phone MERVIN KATIE Unavailable PROBLEMS Type Condition ICD9-CM Code LMM64-ZO Code Onset Dates Condition Status SNOMED Code Problem Other chronic pain G89.29 Active 50614984 Problem Insomnia G47.00 Active 919559419 Problem Type 2 diabetes mellitus with unspecified complications E11.8 Active 17799939 Problem Constipation by delayed colonic transit K59.01 Active 47255894 Problem Chronic kidney disease (CKD) stage G3b/A1, moderately decreased glomerular filtration rate (GFR) between 30-44 mL/min/1.73 square meter and albuminuria creatinine ratio less than 30 mg/g N18.3 Active 685213686 Problem Mixed hyperlipidemia E78.2 Active 831065149 Problem Controlled substance agreement signed Z79.899 Active 312152049 Problem 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 Active 19554279 Problem Vitamin D deficiency E55.9 Active 97883728 Problem Peripheral neuropathy G62.9 Active 25362600 Problem Essential hypertension I10 Active 31504847 Problem Osteoarthritis of acromioclavicular joint M19.019 Active 895864036 Problem COPD (chronic obstructive pulmonary disease) J44.9 Active 14558245 Problem Anxiety associated with depression F41.8 Active 738059001 Problem GERD (gastroesophageal reflux disease) K21.9 Active 489533604 ALLERGIES No Information ENCOUNTERS Encounter Location Date Diagnosis [facility] [id number] [address] Feb, [facility] [address] [address] 08 Feb, 2018 Other chronic pain G89.29 and Anxiety associated with depression F41.8 [facility] [id number] [place] [address] 33031- 0908 Jan, [facility] [address], [place] [address] Jan, Type 2 diabetes mellitus with unspecified complications E11.8 [facility] [address], [place] [address] Jan, [facility] [id number] [place] [address] 68926- 8522 Jan, Other chronic pain G89.29 and Anxiety associated with depression F41.8 [facility] [address] [address] 8[address] Jan, [facility] [id number] [place] [address] 90439- 4187 Dec, [facility] [id number] [address] 7[address] Dec, Type 2 diabetes mellitus with unspecified [...] of right eye H54.61 [facility] [address], [place] [address] 6[address] Dec, [facility] [address], [place] [address] 8006 Dec, Type 2 diabetes mellitus with unspecified complications E11.8 [facility] [address] [address] 5[address] Dec, [facility] [address], [place] [address] 9999 Dec, Type 2 diabetes mellitus with unspecified complications E11.8 [facility] [address], [place] [address] 6[address] Dec, Type 2 diabetes mellitus with unspecified complications E11.8 [facility] [address] [facility] [id number] [place] [address] 500[address] Dec, [facility] [address] [facility] [id number] [place] [address]- 5500 Dec, Type 2 diabetes mellitus with unspecified complications E11.8 [facility] [address] [facility] [id number] [address] 8[address] Dec, [facility] [address] [facility] [id number] [place] [address]- 8861 Dec, [facility] [id number] [address] 7985 Dec, [facility] [address], [place] [address]- 6187 Dec, [facility] [address], [place] [address] 8023 Dec, [facility] [address], [place] [address] 5519 Dec, Other chronic pain G89.29 and Anxiety associated with depression F41.8 [facility] [id number] [address] Dec, Type 2 diabetes mellitus with unspecified complications E11.8 [facility] [id number] [address] 4617 Nov, [facility] [address] [facility] [id number], [place] [address] 3092 Nov, [facility] [address], [place] [address]- 0659 Nov, [facility] [id number], [place] [address] 9234 Nov, [facility] [id number], [place] [address] 1652 Nov, Type 2 diabetes mellitus with unspecified complications E11.8 [facility] [address], [place] [address]- 5549 Nov, [facility] [address], [place] [address]- 5476 Nov, Type 2 diabetes mellitus with unspecified complications E11.8 [facility] [address], [place] [address] 4703 Nov, Other chronic pain G89.29 and Anxiety associated with depression F41.8 [facility] [address], [place] [address] 08 Nov, 2017 Chronic renal insufficiency N18.9 [facility] [address], [place] [address]- 9[address] 07 Nov, 2017 Other chronic pain G89.29 [facility] [address], [place] [address]- 5777 Nov, Type 2 diabetes mellitus with unspecified complications E11.8 [facility] [address], [place] [address] 8349 October, [facility] [address], [place] [address]- 7289 October, [facility] [address], [place] [address]- 9473 October, Type 2 diabetes mellitus with unspecified complications E11.8 [facility] [address], [place] [address]- 8795 October, [facility] [address], [place] [address]- 6159 October, [facility] [address], [place] [address]- 4777 October, Type 2 diabetes mellitus with unspecified complications E11.8 [facility] [id number], [place] [address]- 5317 October, [facility] [id number] [place] [address] 00149- 1607 October, [facility] [id number] [place] [address] 65088- 2298 October, Type 2 diabetes mellitus with unspecified complications E11.8 [facility] [id number] [place] [address] 88750- 0537 October, Type 2 diabetes mellitus with unspecified complications E11.8 ; Essential hypertension I10 ; Chronic renal insufficiency N18.9 ; BMI 40.0-44.9, adult Z68.41 ; Other chronic pain G89.29 ; Anxiety associated with depression F41.8 and Right medial knee pain M25.561 [facility] [facility] [id number] [place] [address] 08561- 5379 October, GERD (gastroesophageal reflux disease) K21.9 and Anxiety associated with depression F41.8 [facility] [id number] [place] [address] 62563- 0320 October, Anxiety associated with depression F41.8 [place] [id number] [place] [address] 87021- 6836 Sep, [place] [id number] [place] [address] 77561- 3026 Sep, GERD (gastroesophageal reflux disease) K21.9 and Anxiety associated with depression F41.8 [facility] [address], [place] [address]- 6801 Aug, [facility] [id number] [place] [address] 53395- 1689 Aug, [facility] [id number] [place] [address] 80206 -8183 Aug, Acute recurrent maxillary sinusitis J01.01 [facility] [place] [id number] [place] [address] 67543- 0002 Aug, [facility] [address], [place] [address] Aug, GERD (gastroesophageal reflux disease) K21.9 and Other chronic pain G89.29 [facility] [address], [place] [address]- 0668 Aug, [facility] [id number] [place] [address] 54648 -0797 Aug, [facility] [id number] [place] [address] 71469- 8320 Aug, Controlled substance agreement signed Z79.899 ; [...] nodes in armpit R59.0 [facility] [id number] [place] [address] 42496- 8033 Aug, Anxiety associated with depression F41.8 and GERD ( gastroesophageal reflux disease) K21.9 [facility] [address], [place] [address]- 6684 Jul, Controlled substance agreement signed Z79.899 [facility] [id number] [place] [address] 20929- 8532 Jun, Anxiety associated with depression F41.8 and GERD ( gastroesophageal reflux disease) K21.9 [place] [id number] [place] [address] 06740- 3640 May, Anxiety associated with depression F41.8 and GERD ( gastroesophageal reflux disease) K21.9 [facility] [id number] [place] [address] 83651- 4238 Apr, Mixed hyperlipidemia E78.2 [facility] [id number] [place] [address] 29676- 2592 Apr, Anxiety associated with depression F41.8 and GERD ( gastroesophageal reflux disease) K21.9 [facility] [id number] [place] [address] 26738- 2997 Apr, [place] [id number] [place] [address] 09113- 3645 Apr, Type 2 diabetes mellitus with unspecified complications E11.8 [facility] [id number] [place] [address] 54264- 1953 Apr, [place] [id number] [place] [address] 26200- 4730 Apr, Type 2 diabetes mellitus with unspecified complications E11.8 [address] [id number] [place] [address] 74764- 5625 Apr, [facility] [id number] [place] [address] 92451- 6219 Mar, GERD (gastroesophageal reflux disease) K21.9 and Anxiety associated with depression F41.8 [facility] [id number] [place] [address] 63644- 2680 Mar, 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 [id number] [place] [address] 03087- 5451 Mar, Essential hypertension I10 ; Anxiety associated with depression F41.8 ; COPD (chronic obstructive pulmonary disease) J44.9 ; Mixed hyperlipidemia E78.2 ; Vitamin D deficiency E55.9 ; GERD (gastroesophageal reflux disease) K21.9 ; Type 2 diabetes mellitus with unspecified complications E11.8 ; Other chronic pain G89.29 and Chronic renal insufficiency N18.9 [facility] [id number] [place] [address] 56854- 3948 Mar, Chronic renal insufficiency N18.9 [facility] [id number] [place] [address] 54464- 8992 Feb, GERD (gastroesophageal reflux disease) K21.9 and Type 2 diabetes mellitus with unspecified complications E11.8 [facility] [id number] [place] [address] 36351- 3945 Feb, Anxiety associated with depression F41.8 and Tear of left supraspinatus tendon, subsequent encounter S46.812D [facility] [id number] [place] [address] 90226- 5342 Jan, Pre-operative examination for internal medicine Z01.818 [facility] [id number] [place] [address] 42727- 9837 Jan, Anxiety associated with depression F41.8 and Left anterior shoulder pain M25.512 [facility] [id number] [place] [address] 53556- 3643 Jan, [place] [id number] [place] [address] 91385- 1784 Jan, [facility] [place] [id number] [place] [address] 93877- 0597 Jan, Type 2 diabetes mellitus with unspecified complications E11.8 ; Essential hypertension I10 ; Other chronic pain G89.29 ; GERD ( gastroesophageal reflux disease) K21.9 ; Anxiety associated with depression F41.8 ; Insomnia G47.00 ; Hypertriglyceridemia E78.1 ; Left anterior shoulder pain M25.512 and Tobacco abuse Z72.0 [facility] [id number] [place] [address] 03927- 0101 Dec, Anxiety associated with depression F41.8 and Tear of left supraspinatus tendon, subsequent encounter S46.812D [place] [id number] [place] [address] 91304- 0611 Nov, [facility] [place] [id number] [place] [address] 21845- 7932 14 Nov, 2016 Anxiety associated with depression F41.8 and Tear of left supraspinatus tendon, subsequent encounter S46.812D [place] [id number] [place] [address] 58289- 6820 Nov, Abnormal lung sounds R09.89 and COPD (chronic obstructive pulmonary disease) with acute bronchitis J44.0 [facility] [id number] [place] [address] 70736- 5579 Nov, [place] [address] 38027- 6861 October, COPD (chronic obstructive pulmonary disease) with acute bronchitis J44.0 ; Abnormal lung sounds R09.89 and Medication refill Z76.0 [facility] [address] 60545- 7424 October, Anxiety associated with depression F41.8 [facility] [id number] [place] [address] 69786- 9434 Sep, Nausea and vomiting, unspecified intactability, vomiting of unspecified type R11.2 [facility] [id number] [place] [address] 06791- 2092 Sep, COPD (chronic obstructive pulmonary disease) J44.9 ; Tobacco abuse Z72.0 ; Tear of left supraspinatus tendon, subsequent encounter S46.812D and Type 2 diabetes mellitus with unspecified complications E11.8 [facility] [place] [id number] [place] [address] 33015- 4831 Sep, [place] [id number] [place] [address] 51730- 7235 Aug, Left anterior shoulder pain M25.512 [facility] [id number] [place] [address] 79782- 1814 Aug, Left anterior shoulder pain M25.512 and Low back pain M54.5 [facility] [place] [id number] [place] [address] 78702- 7638 Aug, [place] [address] 90757- 8432 Aug, [facility] [address], [place] [address]- 0018 Aug, [facility] [place] [id number] [place] [address] 34731- 9195 Aug, [facility] [place] [id number] [place] [address] 87499- 6469 Aug, Type 2 diabetes mellitus with unspecified complications E11.8 [facility] [id number] [place] [address] 06818- 8898 Aug, Type 2 diabetes mellitus with unspecified [...] GERD (gastroesophageal reflux disease) K21.9 [facility] [place] [address] [place] [address] 32628- 2107 Aug, [facility] [id number] [place] [address] 59058- 7673 May, [place] [id number] [place] [address] 14155- 2026 Apr, [facility] [id number] [place] [address] 04806- 5167 Apr, Type 2 diabetes mellitus with unspecified [...] S49.92XA and Anxiety associated with depression F41.8 [id number] [address]- 2388 Apr, [facility] [address], [place] [address]- 9222 Apr, [facility] [address], [place] [address]- 9370 Apr, [facility] [address], [place] [address]- 1448 Mar, [facility] [address], [place] [address]- 5908 Feb, [facility] [address], [place] [address]- 1552 Feb, [facility] [address], [place] [address]- 8212 Jan, [facility] [address], [place] [address]- 3115 Jan, [facility] [address], [place] [address]- 4289 Jan, Type 2 diabetes mellitus with unspecified complications E11.8 ; Essential hypertension I10 and Vitamin D deficiency E55.9 [facility] [id number], [place] [address]- 8686 Dec, Type 2 diabetes mellitus with unspecified complications E11.8 ; Essential hypertension I10 ; Other chronic pain G89.29 ; Anxiety associated with depression F41.8 ; Bronchitis J40 ; Vitamin D deficiency E55.9 and COPD (chronic obstructive pulmonary disease) J44.9 [facility] [address], [place] [address]- 5216 Nov, [facility] [address], [place] [address]- 7056 October, [facility] [id number], [place] [address]- 9845 October, [facility] [id number] [place] [address] 13941- 3065 October, [facility] [id number] [place] [address] 53843- 5559 October, Dysuria R30.0 ; Bronchitis J40 ; Anxiety associated with depression F41.8 and Type 2 diabetes mellitus with unspecified complications E11.8 [facility] [id number] [place] [address] 01709- 4587 October, Chronic renal insufficiency N18.9 ; Elevated white blood cell count D72.829 and Frequent UTI N39.0 [facility] [id number] [place] [address] 91770- 6891 October, Chronic renal insufficiency N18.9 ; Elevated white blood cell count D72.829 and Frequent UTI N39.0 [place] [id number] [place] [address] 21331- 1609 October, [place] [id number] [place] [address] 18470- 1164 Sep, Type 2 diabetes mellitus with unspecified complications E11.8 ; Essential hypertension I10 ; COPD (chronic obstructive pulmonary disease ) J44.9 and Hospital discharge follow-up Z09 [place] [id number] [place] [address] 59583- 3615 Sep, [place] [id number] [place] [address] 23355- 2799 Sep, Dyspnea R06.00 ; Other chronic pain G89.29 ; Dysuria R30.0 ; Diaphoresis R61 ; Jaundice R17 ; COPD (chronic obstructive pulmonary disease) J44.9 ; Type 2 diabetes mellitus with unspecified complications E11.8 ; Excessive daytime sleepiness G47.19 and Oliguria R34 [place] [id number] [place] [address] 52364- 2259 Sep, [facility] [id number] [place] [address] 30942- 6431 Sep, Essential hypertension I10 ; Anxiety associated with depression F41.8 ; Mixed hyperlipidemia E78.2 ; Dyspnea R06.00 ; Shortness of breath R06.02 and Chest pain, unspecified R07.9 [place] [id number] [place] [address] 20277- 7672 Sep, Chest pain R07.9 ; Hyperlipemia E78.5 ; Type 2 diabetes mellitus with unspecified complications E11.8 ; Essential hypertension I10 ; Other chronic pain G89.29 ; Anxiety associated with depression F41.8 ; COPD ( chronic obstructive pulmonary disease) J44.9 ; Low vitamin D level E55.9 ; Tobacco abuse Z72.0 ; Hypertriglyceridemia E78.1 and Abnormal laboratory test R89.[address] 98295- 7471 Aug, Pneumonia J18.9 ; Hypertriglyceridemia E78.1 ; COPD ( chronic obstructive pulmonary disease) J44.9 and Hyperlipidemia E78.[address] 06204- 7792 Aug, Shortness of breath R06.02 ; Anxiety associated with depression F41.8 and Chest pain, unspecified R07.9 [place] [id number] [place] [address] 05157- 3078 Jul, [place] [id number] [place] [address] 09933- 3963 Jun, Anxiety associated with depression F41.8 ; [...] unspecified type R11.2 and Tobacco abuse Z72.0 [place] [id number] [place] [address] 25339- 7198 May, Hyperlipemia E78.[address] [address]- 1174 May, [place] [id number] [place] [address] 71172- 3699 May, Type 2 diabetes mellitus with unspecified complications E11.8 [facility] [place] [id number] [place] [address] 80303- 3018 May, [place] [id number] [place] [address] 81200- 2539 May, Anxiety associated with depression F41.8 ; Type 2 diabetes mellitus with unspecified complications E11.8 ; Essential hypertension I10 ; Peripheral neuropathy G62.9 ; Low back pain M54.5 ; Other chronic pain G89.29 ; GERD (gastroesophageal reflux disease) K21.9 ; Insomnia G47.00 ; COPD (chronic obstructive pulmonary disease) J44.9 ; URI (upper respiratory infection) J06.9 and Depression F32.9 [place] [id number] [place] [address] 08087- 1866 May, Low back pain M54.5 ; Anxiety about health F41.8 ; Generalized anxiety disorder F41.1 and Acute stress reaction F43.0 [address] [place] [address] 97624- 9980 May, [address] [place] [address] 60003- 7499 Apr, Diabetes E11.9 ; Type 2 diabetes mellitus with unspecified complications E11.8 ; Essential hypertension I10 ; Peripheral neuropathy G62.9 ; Low back pain M54.5 ; Other chronic pain G89.29 ; GERD (gastroesophageal reflux disease) K21.9 ; Anxiety associated with depression F41.8 ; Muscle spasm of calf M62.831 ; Insomnia G47.00 and COPD (chronic obstructive pulmonary disease) J44.9 [place] [address] [place] [address] 71689- 8548 May, [place] [id number] [place] [address] 76962- 7726 May, IMMUNIZATIONS No Known Immunizations SOCIAL HISTORY Never Assessed REASON FOR VISIT victoza PLAN OF CARE VITAL SIGNS MEDICATIONS Unknown [...]
--- OUTSIDE RECORDS SUMMARY | 2018-02-26 15:18 | XMS REPORT ---
Author Author KATIE JEFFRIES Organization [facility] Address [address] [place] [address] Care Team Providers Care Rolled Gold Plater Name Role Phone KATIE JEFFRIES Unavailable PROBLEMS Type Condition ICD9-CM Code [id number] Code Onset Dates Condition Status SNOMED Code Problem Other chronic pain G89.29 Active 35412283 Problem Insomnia G47.00 Active 079759098 Problem Type 2 diabetes mellitus with unspecified complications E11.8 Active 14111106 Problem Constipation by delayed colonic transit K59.01 Active 47737980 Problem Chronic kidney disease (CKD) stage G3b/A1, moderately decreased glomerular filtration rate (GFR) between 30-44 mL/min/1.73 square meter and albuminuria creatinine ratio less than 30 mg/g N18.3 Active 050940685 Problem Mixed hyperlipidemia E78.2 Active 617175937 Problem Controlled substance agreement signed Z79.899 Active 713737697 Problem 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 Active 26127790 Problem Vitamin D deficiency E55.9 Active 77758921 Problem Peripheral neuropathy G62.9 Active 64365960 Problem Essential hypertension I10 Active 60505788 Problem Osteoarthritis of acromioclavicular joint M19.019 Active 666030016 Problem COPD (chronic obstructive pulmonary disease) J44.9 Active 93205361 Problem Anxiety associated with depression F41.8 Active 368165816 Problem GERD (gastroesophageal reflux disease) K21.9 Active 228693870 ALLERGIES No Information ENCOUNTERS Encounter Location Date Diagnosis [facility] [id number] [address] Feb, Other chronic pain G89.29 and Anxiety associated with depression F41.8 [facility] [id number] [address] Jan, [facility] [id number] [place] [address] 97563- 5378 Jan, Type 2 diabetes mellitus with unspecified complications E11.8 [place] [place] [address] [address] Jan, [facility] [id number] [place] [address] 55982- 6483 Jan, Other chronic pain G89.29 and Anxiety associated with depression F41.8 [place] [id number] [place] [address] 68969- 0887 Jan, [place] [id number] [place] [address] 33108- 6847 Dec, [place] [id number] [place] [address] 29470- 2253 Dec, Type 2 diabetes mellitus with unspecified [...] and 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 [place] [address] [address] 14[address] Dec, [place] [address] [address] 3255 Dec, Type 2 diabetes mellitus with unspecified complications E11.8 [place] [address] [address] 5958 Dec, [place] [id number] [place] [address] 79528- 0910 Dec, Type 2 diabetes mellitus with unspecified complications E11.8 [place] [address] [address] 6597 Dec, Type 2 diabetes mellitus with unspecified complications E11.8 [facility] [id number] [place] [address] Dec, [facility] [address] [address] 8473 Dec, Type 2 diabetes mellitus with unspecified complications E11.8 [facility] [address] [place] [address] 42[address] Dec, [facility] [address] [address] 2868 Dec, [facility] [id number] [place] [address] 3505 Dec, [facility] [address] [address] 1703 Dec, [facility] [address] [address]- 1574 Dec, [facility] [address] [address] 5495 Dec, Other chronic pain G89.29 and Anxiety associated with depression F41.8 [facility] [address] [address]- 2793 Dec, Type 2 diabetes mellitus with unspecified complications E11.8 [facility] [address] [address]- 6420 Nov, [facility] [address] [address]- 8027 Nov, [facility] [id number] [address] 3173 Nov, [facility] [address] [address]- 7297 Nov, [facility] [id number] [address] 0909 Nov, Type 2 diabetes mellitus with unspecified complications E11.8 [facility] [address] [facility] [id number] [address] Nov, [facility] [address] [facility] [id number] [place] [address]- 6516 Nov, Type 2 diabetes mellitus with unspecified complications E11.8 [facility] [address] [facility] [id number] [place] [address]- 8346 11 Nov, 2017 Other chronic pain G89.29 and Anxiety associated with depression F41.8 [facility] [address] [facility] [id number] [place] [address]- 6165 08 Nov, 2017 Chronic renal insufficiency N18.9 [facility] [address] [facility] [id number] [place] [address]- 5966 07 Nov, 2017 Other chronic pain G89.29 [facility] [id number] [place] [address]- 4541 Nov, Type 2 diabetes mellitus with unspecified complications E11.8 [facility] [address] [facility] [id number] [place] [address]- 7228 October, [facility] [id number] [place] [address]- 7412 October, [facility] [id number] [address]- 7920 October, Type 2 diabetes mellitus with unspecified complications E11.8 [facility] [address] [address]- 0970 October, [facility] [address] [facility] [id number] [address] 4556 October, [facility] [address] [facility] [id number] [place] [address]- 9366 October, Type 2 diabetes mellitus with unspecified complications E11.8 [facility] [id number] [place] [address]- 1450 October, [facility] [id number] [place] [address] 49726- 1013 October, [place] [id number] [place] [address] 75725- 5223 October, Type 2 diabetes mellitus with unspecified complications E11.8 [place] [id number] [place] [address] 10453- 9722 October, Type 2 diabetes mellitus with unspecified complications E11.8 ; Essential hypertension I10 ; Chronic renal insufficiency N18.9 ; BMI 40.0-44.9, adult Z68.41 ; Other chronic pain G89.29 ; Anxiety associated with depression F41.8 and Right medial knee pain M25.561 [place] [address] [address]- [address] October, GERD (gastroesophageal reflux disease) K21.9 and Anxiety associated with depression F41.8 [place] [address] [address]- 4298 October, Anxiety associated with depression F41.8 [place] [id number] [place] [address] 94374- 0447 Sep, [place] [address] [address]- 8169 Sep, GERD (gastroesophageal reflux disease) K21.9 and Anxiety associated with depression F41.8 [place] [id number] [place] [address] 30104- 8353 Aug, [place] [id number] [place] [address] 17673- 2290 Aug, [facility] [id number] [place] [address] 26360 -6697 Aug, Acute recurrent maxillary sinusitis J01.01 [place] [id number] [place] [address] 85208- 3651 Aug, [place] [id number] [place] [address] 56747- 0081 Aug, GERD (gastroesophageal reflux disease) K21.9 and Other chronic pain G89.29 [facility] [address] [place] [address] 95864- 7166 Aug, [facility] [address] [place] [address] 36920 -9336 Aug, [facility] [id number] [place] [address] 00483- 9452 Aug, Controlled substance agreement signed Z79.899 ; [...] and Enlarged lymph nodes in armpit R59.0 [facility] [address] [place] [address] 00542- 8379 Aug, Anxiety associated with depression F41.8 and GERD ( gastroesophageal reflux disease) K21.9 [facility] [address] [place] [address] 74159- 7302 Jul, Controlled substance agreement signed Z79.899 [facility] [address] [place] [address] 90895- 8691 Jun, Anxiety associated with depression F41.8 and GERD ( gastroesophageal reflux disease) K21.9 [facility] [address] [place] [address] 21680- 8199 May, Anxiety associated with depression F41.8 and GERD ( gastroesophageal reflux disease) K21.9 [facility] [address] [place] [address] 38728- 7613 Apr, Mixed hyperlipidemia E78.2 [facility] [id number] [place] [address] 26033- 3479 Apr, Anxiety associated with depression F41.8 and GERD ( gastroesophageal reflux disease) K21.9 [place] [id number] [place] [address] 28224- 9938 Apr, [place] [id number] [place] [address] 40380- 4597 Apr, Type 2 diabetes mellitus with unspecified complications E11.8 [place] [id number] [place] [address] 55729- 1251 Apr, [place] [id number] [place] [address] 07556- 1833 Apr, Type 2 diabetes mellitus with unspecified complications E11.8 [place] [id number] [place] [address] 20906- 0687 Apr, [place] [id number] [place] [address] 47591- 4442 Mar, GERD (gastroesophageal reflux disease) K21.9 and Anxiety associated with depression F41.8 [place] [id number] [place] [address] 88961- 9760 Mar, 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 [place] [id number] [place] [address] 12362- 8378 Mar, Essential hypertension I10 ; Anxiety associated with depression F41.8 ; COPD (chronic obstructive pulmonary disease) J44.9 ; Mixed hyperlipidemia E78.2 ; Vitamin D deficiency E55.9 ; GERD (gastroesophageal reflux disease) K21.9 ; Type 2 diabetes mellitus with unspecified complications E11.8 ; Other chronic pain G89.29 and Chronic renal insufficiency N18.9 [place] [id number] [place] [address] 31957- 6798 Mar, Chronic renal insufficiency N18.9 [place] [id number] [place] [address] 68260- 7601 Feb, GERD (gastroesophageal reflux disease) K21.9 and Type 2 diabetes mellitus with unspecified complications E11.8 [address] [place] [address] [place] [address] 48748- 9653 Feb, Anxiety associated with depression F41.8 and Tear of left supraspinatus tendon, subsequent encounter S46.812D [place] [address] [address]- 4542 Jan, Pre-operative examination for internal medicine Z01.818 [place] [id number] [place] [address] 65557- 3229 Jan, Anxiety associated with depression F41.8 and Left anterior shoulder pain M25.512 [place] [id number] [place] [address] 45385- 6547 Jan, [place] [id number] [place] [address] 76012- 8695 Jan, [place] [id number] [place] [address] 25308- 3954 Jan, Type 2 diabetes mellitus with unspecified complications E11.8 ; Essential hypertension I10 ; Other chronic pain G89.29 ; GERD ( gastroesophageal reflux disease) K21.9 ; Anxiety associated with depression F41.8 ; Insomnia G47.00 ; Hypertriglyceridemia E78.1 ; Left anterior shoulder pain M25.512 and Tobacco abuse Z72.0 [place] [address] [address]- 5415 Dec, Anxiety associated with depression F41.8 and Tear of left supraspinatus tendon, subsequent encounter S46.812D [place] [address] [place] [address] 07150- 2990 Nov, [place] [id number] [place] [address] 81340- 2900 Nov, Anxiety associated with depression F41.8 and Tear of left supraspinatus tendon, subsequent encounter S46.812D [place] [address] [place] [address] 03225- 8040 Nov, Abnormal lung sounds R09.89 and COPD (chronic obstructive pulmonary disease) with acute bronchitis J44.0 [address] [address] 12847- 2423 Nov, [place] [address] 07005- 9981 October, COPD (chronic obstructive pulmonary disease) with acute bronchitis J44.0 ; Abnormal lung sounds R09.89 and Medication refill Z76.0 [address] [address] 90582- 6569 October, Anxiety associated with depression F41.8 [place] [address] 80201- 9072 Sep, Nausea and vomiting, unspecified intactability, vomiting of unspecified type R11.[address] 03237- 7092 Sep, COPD (chronic obstructive pulmonary disease) J44.9 ; Tobacco abuse Z72.0 ; Tear of left supraspinatus tendon, subsequent encounter S46.812D and Type 2 diabetes mellitus with unspecified complications E11.8 [address] [address] 63736- 5330 Sep, [place] [address] 94921- 1987 Aug, Left anterior shoulder pain M25.512 [place] [address] 47980- 3829 Aug, Left anterior shoulder pain M25.512 and Low back pain M54.5 [address] [address] 56566- 8991 Aug, [place] [address] 08076- 5277 Aug, [place] [address] 46447- 0701 Aug, [place] [id number] [place] [address] 96019- 7868 Aug, [id number] [place] [address] 51403- 0698 Aug, Type 2 diabetes mellitus with unspecified complications E11.8 [address] [id number] [place] [address] 45327- 4445 Aug, Type 2 diabetes mellitus with unspecified [...] GERD (gastroesophageal reflux disease) K21.9 [id number] [place] [address] 40048- 3958 Aug, [place] [id number] [place] [address] 68704- 1417 May, [address] 45319- 4993 Apr, [address] [id number] [place] [address] 65394- 3207 Apr, Type 2 diabetes mellitus with unspecified [...] Anxiety associated with depression F41.8 [id number] [place] [address] 86784- 9773 Apr, [address] [place] [address]- 5829 Apr, [facility] [address] [address]- 3656 Apr, [facility] [address] 2371 Mar, [facility] [address] [address]- 8346 Feb, [facility] [address] [address]- 5999 Feb, [facility] [address] [address]- 4396 Jan, [facility] [address] [address]- 5452 Jan, [facility] [address] [address]- 3983 Jan, Type 2 diabetes mellitus with unspecified complications E11.8 ; Essential hypertension I10 and Vitamin D deficiency E55.9 [facility] [address] [address]- 8505 Dec, Type 2 diabetes mellitus with unspecified complications E11.8 ; Essential hypertension I10 ; Other chronic pain G89.29 ; Anxiety associated with depression F41.8 ; Bronchitis J40 ; Vitamin D deficiency E55.9 and COPD (chronic obstructive pulmonary disease) J44.9 [facility] [address] [address]- 4805 Nov, [facility] [id number] [address]- 6250 October, [facility] [address] [address]- 6609 October, [facility] [id number] [address]- 1549 October, [facility] [address] [place] [address] 73490- 4595 October, Dysuria R30.0 ; Bronchitis J40 ; Anxiety associated with depression F41.8 and Type 2 diabetes mellitus with unspecified complications E11.8 [place] [id number] [place] [address] 88461- 4498 October, Chronic renal insufficiency N18.9 ; Elevated white blood cell count D72.829 and Frequent UTI N39.0 [place] [address] 76439- 9954 October, Chronic renal insufficiency N18.9 ; Elevated white blood cell count D72.829 and Frequent UTI N39.0 [place] [id number] [place] [address] 58351- 2790 October, [place] [id number] [place] [address] 46376- 8724 Sep, Type 2 diabetes mellitus with unspecified complications E11.8 ; Essential hypertension I10 ; COPD (chronic obstructive pulmonary disease ) J44.9 and Hospital discharge follow-up Z09 [place] [id number] [place] [address] 84101- 5019 Sep, [place] [id number] [place] [address] 81016- 2598 Sep, Dyspnea R06.00 ; Other chronic pain G89.29 ; Dysuria R30.0 ; Diaphoresis R61 ; Jaundice R17 ; COPD (chronic obstructive pulmonary disease) J44.9 ; Type 2 diabetes mellitus with unspecified complications E11.8 ; Excessive daytime sleepiness G47.19 and Oliguria R34 [place] [id number] [place] [address] 32494- 5317 Sep, [address] 61579- 1646 Sep, Essential hypertension I10 ; Anxiety associated with depression F41.8 ; Mixed hyperlipidemia E78.2 ; Dyspnea R06.00 ; Shortness of breath R06.02 and Chest pain, unspecified R07.9 [id number] [place] [address] 63522- 4261 Sep, Chest pain R07.9 ; Hyperlipemia E78.5 ; Type 2 diabetes mellitus with unspecified complications E11.8 ; Essential hypertension I10 ; Other chronic pain G89.29 ; Anxiety associated with depression F41.8 ; COPD ( chronic obstructive pulmonary disease) J44.9 ; Low vitamin D level E55.9 ; Tobacco abuse Z72.0 ; Hypertriglyceridemia E78.1 and Abnormal laboratory test R89.[address] 18509- 4909 Aug, Pneumonia J18.9 ; Hypertriglyceridemia E78.1 ; COPD ( chronic obstructive pulmonary disease) J44.9 and Hyperlipidemia E78.[address] 69356- 9583 Aug, Shortness of breath R06.02 ; Anxiety associated with depression F41.8 and Chest pain, unspecified R07.[address] 55984- 5343 Jul, [address] 06339- 5743 Jun, Anxiety associated with depression F41.8 ; [...] unspecified type R11.2 and Tobacco abuse Z72.[address] 18113- 5994 May, Hyperlipemia E78.[address] 28796- 3758 May, [address] [place] [address] 83485- 8508 May, Type 2 diabetes mellitus with unspecified complications E11.8 [place] [id number] [place] [address] 10457- 5072 May, [place] [id number] [place] [address] 45193- 3091 May, Anxiety associated with depression F41.8 ; Type 2 diabetes mellitus with unspecified complications E11.8 ; Essential hypertension I10 ; Peripheral neuropathy G62.9 ; Low back pain M54.5 ; Other chronic pain G89.29 ; GERD (gastroesophageal reflux disease) K21.9 ; Insomnia G47.00 ; COPD (chronic obstructive pulmonary disease) J44.9 ; URI (upper respiratory infection) J06.9 and Depression F32.9 [address] [place] [id number] [place] [address] 98068- 7247 May, Low back pain M54.5 ; Anxiety about health F41.8 ; Generalized anxiety disorder F41.1 and Acute stress reaction F43.0 [place] [id number] [place] [address] 13532- 7497 May, [address] [id number] [place] [address] 13755- 9660 Apr, Diabetes E11.9 ; Type 2 diabetes mellitus with unspecified complications E11.8 ; Essential hypertension I10 ; Peripheral neuropathy G62.9 ; Low back pain M54.5 ; Other chronic pain G89.29 ; GERD (gastroesophageal reflux disease) K21.9 ; Anxiety associated with depression F41.8 ; Muscle spasm of calf M62.831 ; Insomnia G47.00 and COPD (chronic obstructive pulmonary disease) J44.9 [address] [id number] [place] [address] 52829- 1680 May, [address] [place] [id number] [place] [address] 48385- 9139 May, IMMUNIZATIONS No Known Immunizations SOCIAL HISTORY Never Assessed REASON FOR VISIT insulin / bs readings PLAN OF CARE VITAL SIGNS MEDICATIONS Unknown [...]
--- OUTSIDE RECORDS SUMMARY | 2018-02-26 15:47 | XMS REPORT | Continuity of Care Document ---
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 11/24/2015 FRANC DREW FACC, ALI FACP CCDS Ot E66.9 OBESITY, UNSPECIFIED 11/24/2015 FRANC DREW FACC, ALI FACP CCDS Ot E78.0 PURE HYPERCHOLESTEROLEMIA 11/24/2015 FRANC DREW FACC, ALI FACP CCDS Ot I12.9 HYPERTENSIVE CHRONIC KIDNEY DISEASE W ST 11/24/2015 FRANC DREW FACC, ALI FACP CCDS Ot I25.10 ATHSCL HEART DISEASE OF [place] CORONARY 11/24/2015 FRANC DREW FACC, ALI FACP [...] FACC, ALI FACP CCDS Ot Z79.899 OTHER PARAFFIN MACHINE OPERATOR (CURRENT) DRUG THERAPY 12/17/2015 FRANC DREW FACC, ALI FACP CCDS Ot 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) THROMBOCYTHEMIA 12/17/2015 FRANC DREW FACC, ALI FACP CCDS Ot 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 12/17/2015 FRANC DREW FACC, ALI FACP CCDS Ot E66.9 OBESITY, UNSPECIFIED 12/17/2015 FRANC DREW FACC, GHASSAN FACP CCDS Ot E78.0 PURE HYPERCHOLESTEROLEMIA 12/17/2015 FRANC DREW FACC, ALI FACP CCDS Ot I12.9 HYPERTENSIVE CHRONIC KIDNEY DISEASE W ST 12/17/2015 FRANC DREW FACC, ALI FACP CCDS Ot I25.10 ATHSCL HEART DISEASE OF [place] CORONARY 12/17/2015 FRANC DREW FACC, ALI FACP [...] FACC, ALI FACP CCDS Ot Z79.899 OTHER USP (CURRENT) DRUG THERAPY 06/14/2016 [place] H[place]DE[place] DO [...] R06.02 SHORTNESS OF BREATH 06/14/2016 FRANC DREW [facility], ALI FACP CCDS Ot R07.89 OTHER CHEST PAIN 06/14/2016 FRANC DREW [facility], ALI FACP CCDS Ot Z72.0 TOBACCO USE 06/15/2016 FRANC DREW [facility], ALI FACP CCDS Ot E13.9 OTHER SPECIFIED DIABETES MELLITUS WITHOU 06/15/2016 [facility]ANC DREW [facility], [facility] FACP CCDS Ot E78.0 PURE HYPERCHOLESTEROLEMIA 06/15/2016 FRANC DREW [facility], ALI FACP CCDS Ot I10 ESSENTIAL (PRIMARY) HYPERTENSION 06/15/2016 FRANC DREW [facility], ALI FACP CCDS Ot J43.8 OTHER EMPHYSEMA 06/15/2016 FRANC DREW [facility], ALI FACP CCDS Ot R06.02 SHORTNESS OF BREATH 06/15/2016 FRANC DREW [facility], ALI FACP CCDS Ot R07.89 OTHER CHEST PAIN 06/15/2016 FRANC DREW [facility], ALI FACP CCDS Ot Z72.0 TOBACCO USE 06/20/2016 [place] DO Ot J43.8 OTHER EMPHYSEMA 06/20/2016 [place] H[place] DO Ot R06.02 SHORTNESS OF BREATH 06/20/2016 [place] DO Ot R91.8 OTHER NONSPECIFIC ABNORMAL FINDING OF MADHU 06/20/2016 [place] H[place]NDE[place] DO Ot Z72.0 TOBACCO USE 06/20/2016 FRANC DREW [facility], ALI FACP CCDS Ot E13.9 OTHER SPECIFIED DIABETES MELLITUS WITHOU 06/20/2016 FRANC DREW [facility], ALI FACP CCDS Ot E78.0 PURE HYPERCHOLESTEROLEMIA 06/20/2016 FRANC DREW [facility], ALI FACP CCDS Ot I10 ESSENTIAL (PRIMARY) HYPERTENSION 06/20/2016 FRANC DREW [facility], ALI FACP CCDS Ot J43.8 OTHER EMPHYSEMA 06/20/2016 FRANC DRE[facility], ALI FACP CCDS Ot R06.02 SHORTNESS OF BREATH 06/20/2016 FRANC DRE[facility], ALI FACP CCDS Ot R07.89 OTHER CHEST PAIN 06/20/2016 FRANC DREW [facility], ALI FACP CCDS Ot Z72.0 TOBACCO USE 09/05/2016 DEBBI LYNN DO Ot Z01.818 ENCOUNTER FOR OTHER PREPROCEDURAL EXAMIN 09/05/2016 DEBBI LYNN DO Ot Z12.11 ENCOUNTER FOR SCREENING FOR MALIGNANT NE 09/05/2016 FRANC DREW [facility], ALI FACP CCDS Ot E13.9 OTHER SPECIFIED DIABETES MELLITUS WITHOU 09/05/2016 FRANC MARIN, ALI FACP CCDS Ot E78.0 PURE HYPERCHOLESTEROLEMIA 09/05/2016 [facility]ANC DRE[facility], ALI FACP CCDS Ot I10 ESSENTIAL (PRIMARY) HYPERTENSION 09/05/2016 [facility]ANC DRE[facility], ALI FACP CCDS Ot J43.8 OTHER EMPHYSEMA 09/05/2016 [facility], ALI FACP CCDS Ot R06.02 SHORTNESS OF BREATH 09/05/2016 [facility]ANC DRE[facility], ALI FACP CCDS Ot R07.89 OTHER CHEST PAIN 09/05/2016 FRANC DREW [facility], [facility] FACP CCDS Ot Z72.0 TOBACCO USE [...] FIBROMYALGIA 02/28/2017 DEBBI LYNN DO Ot Z79.84 PARAFFIN MACHINE OPERATOR (CURRENT) USE OF ORAL HYPOGLYC 02/28/2017 DEBBI LYNN DO Ot Z79.899 OTHER PARAFFIN MACHINE OPERATOR (CURRENT) DRUG THERAPY 03/02/2017 DEBBI LYNN DO [...] FIBROMYALGIA 03/02/2017 DEBBI LYNN DO Ot Z79.84 USP (CURRENT) USE OF ORAL HYPOGLYC 03/02/2017 DEBBI LYNN DO Ot Z79.899 OTHER USP (CURRENT) DRUG THERAPY 03/08/2017 DEBBI LYNN DO [...] FIBROMYALGIA 03/10/2017 DEBBI LYNN DO Ot Z79.84 USP (CURRENT) USE OF ORAL HYPOGLYC 03/10/2017 DEBBI LYNN DO Ot Z79.899 OTHER PARAFFIN MACHINE OPERATOR (CURRENT) DRUG THERAPY 03/13/2017 DEBBI LYNN DO [...] FIBROMYALGIA 04/21/2017 DEBBI LYNN DO Ot Z79.84 USP (CURRENT) USE OF ORAL HYPOGLYC 04/21/2017 DEBBI LYNN DO Ot Z79.899 OTHER PARAFFIN MACHINE OPERATOR (CURRENT) DRUG THERAPY 04/26/2017 LORI ALICEA MD [...] FIBROMYALGIA 04/26/2017 LORI ALICEA MD, Ot Z79.82 PARAFFIN MACHINE OPERATOR (CURRENT) USE OF ASPIRIN 04/26/2017 LORI ALICEA MD, Ot Z79.84 USP (CURRENT) USE OF ORAL HYPOGLYC 04/26/2017 LORI ALICEA MD, Ot Z79.899 OTHER PARAFFIN MACHINE OPERATOR (CURRENT) DRUG THERAPY 04/26/2017 LORI ALICEA MD, [...] FIBROMYALGIA 04/27/2017 LORI ALICEA MD, Ot Z79.82 PARAFFIN MACHINE OPERATOR (CURRENT) USE OF ASPIRIN 04/27/2017 LORI ALICEA MD, Ot Z79.84 USP (CURRENT) USE OF ORAL HYPOGLYC 04/27/2017 LORI ALICEA MD, Ot Z79.899 OTHER PARAFFIN MACHINE OPERATOR (CURRENT) DRUG THERAPY 04/27/2017 LORI ALICEA MD, Ot Z87.891 PERSONAL HISTORY OF NICOTINE DEPENDENCE 09/03/2017 KATIE JEFFRIES APRN Ot R59.0 LOCALIZED ENLARGED LYMPH NODES 09/03/2017 KATIE JEFFRIES APRN Ot Z79.899 OTHER PARAFFIN MACHINE OPERATOR (CURRENT) DRUG THERAPY 10/27/2017 KATIE JEFFRIES FRONT LINE LEADER Ot 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 10/27/2017 KATIE JEFFRIES APRN Ot N18.9 CHRONIC KIDNEY DISEASE, UNSPECIFIED 11/09/2017 KATIE JEFFRIES APRN Ot 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 11/09/2017 KATIE JEFFRIES APRN Ot N18.9 CHRONIC KIDNEY DISEASE, UNSPECIFIED 02/20/2018 GUSTAVO LARA MD Ot E11.43 TYPE 2 DIABETES W DIABETIC AUTONOMIC (PO 02/20/2018 GUSTAVO LARA MD Ot E27.9 DISORDER OF ADRENAL GLAND, UNSPECIFIED 02/20/2018 GUSTAVO LARA MD Ot E78.00 PURE HYPERCHOLESTEROLEMIA, UNSPECIFIED 02/20/2018 GUSTAVO LARA MD Ot F32.9 MAJOR DEPRESSIVE DISORDER, SINGLE EPISOD 02/20/2018 GUSTAVO LARA MD Ot F41.9 ANXIETY DISORDER, UNSPECIFIED 02/20/2018 GSUTAVO LARA MD Ot G47.33 OBSTRUCTIVE SLEEP APNEA (ADULT) (PEDIATR 02/20/2018 GUSTAVO LARA MD Ot I12.9 HYPERTENSIVE CHRONIC KIDNEY DISEASE W ST 02/20/2018 GUSTAVO LARA MD Ot J18.9 PNEUMONIA, UNSPECIFIED ORGANISM 02/20/2018 GUSTAVO LARA MD Ot J44.0 CHRONIC OBSTRUCTIVE PULMON DISEASE W ACU 02/20/2018 GUSTAVO LARA MD Ot J44.1 CHRONIC OBSTRUCTIVE PULMONARY DISEASE W 02/20/2018 GUSTAVO LARA MD Ot K21.9 GASTRO-ESOPHAGEAL REFLUX DISEASE WITHOUT 02/20/2018 GUSTAVO LARA MD Ot K76.0 FATTY (CHANGE OF) LIVER, NOT ELSEWHERE C 02/20/2018 GUSTAVO LARA MD Ot M19.91 PRIMARY OSTEOARTHRITIS, UNSPECIFIED SITE 02/20/2018 GUSTAVO LARA MD, Ot M79.7 FIBROMYALGIA 02/20/2018 GUSTAVO LARA MD, Ot N17.9 ACUTE KIDNEY FAILURE, UNSPECIFIED 02/20/2018 GUSTAVO LARA MD, Ot N18.9 CHRONIC KIDNEY DISEASE, UNSPECIFIED 02/20/2018 GUSTAVO LARA MD, Ot R59.1 GENERALIZED ENLARGED LYMPH NODES 02/20/2018 GUSTAVO LARA MD, Ot Z79.4 USP (CURRENT) USE OF INSULIN 02/20/2018 GUSTAVO LARA MD, Ot Z79.82 PARAFFIN MACHINE OPERATOR (CURRENT) USE OF ASPIRIN 02/20/2018 GUSTAVO LARA MD, Ot Z87.891 PERSONAL HISTORY OF NICOTINE DEPENDENCE Procedures There is no data. Results Test [...] RA Latex Turbid. <10.0 IU/mL 0.0-13.9 Thyroid [place] Profile - 04/29/16 15:25 TSH 0.665 uIU/mL 0.450-4.500 Sedimentation Rate-[facility] - 04/29/16 15:25 Sedimentation Rate-[facility] 63 mm/hr 0-40 Request Problem - 04/29/16 [...] A1c 6.8 % of total Hgb <5.7 Arterial blood gas measurement - 02/19/18 15:45 Blood pCO2 41 mm[Hg] 35-45 Blood pO2 80 mm[Hg] 79-93 Arterial blood bicarbonate measurement (moles/volume) 28 mmol/L 23-27 Arterial blood base excess by calculation 3.9 mmol/L -2.5 -2.5 Arterial blood oxygen saturation measurement 96 % 94-100 * Inhaled oxygen flow rate 2 L NRG Arterial blood pH measurement with patient temperature correction 7.44 7.37-7.43 Arterial blood carbon dioxide, total measurement (moles/volume) 29.0 mmol/L 21.0-31.0 Body site LEFT RADIAL NRG Assessment of wrist artery patency prior to arterial puncture POSITIVE NRG Setting of ventilation mode NO NRG Measurement of body temperature 98.9 NRG Complete blood count (CBC) with automated white blood cell (WBC) differential - 02/19/18 15:45 Blood leukocytes automated count (number/volume) 12.5 10*3/uL 4.3-11.0 Blood erythrocytes automated count (number/volume) 4.71 10*6/uL 4.35-5.85 Venous blood hemoglobin measurement (mass/volume) 12.0 g/dL 11.5-16.0 Blood hematocrit (volume fraction) 38 % 35-52 Automated erythrocyte mean corpuscular volume 80 [foz_us] 80-99 Automated erythrocyte mean corpuscular hemoglobin (mass per erythrocyte) 26 pg 25-34 Automated erythrocyte mean corpuscular hemoglobin concentration measurement ( mass/volume) 32 g/dL 32-36 Automated erythrocyte distribution width ratio 18.0 % 10.0-14.5 Automated blood platelet count (count/volume) 464 10*3/uL 130-400 Automated blood platelet mean volume measurement 10.8 [foz_us] 7.4-10.4 Automated blood neutrophils/100 leukocytes 63 % 42-75 Automated blood lymphocytes/100 leukocytes 25 % 12-44 Blood monocytes/100 leukocytes 10 % 0-12 Automated blood eosinophils/100 leukocytes 2 % 0-10 Automated blood basophils/100 leukocytes 0 % 0-10 Blood neutrophils automated count (number/volume) 7.8 10*3 1.8-7.8 Blood lymphocytes automated count (number/volume) 3.1 10*3 1.0-4.0 Blood monocytes automated count (number/volume) 1.2 10*3 0.0-1.0 Automated eosinophil count 0.3 10*3/uL 0.0-0.3 Automated blood basophil count (count/volume) 0.0 10*3/uL 0.0-0.1 Blood lactic acid measurement (moles/volume) - 02/19/18 15:45 Blood lactic acid measurement (moles/volume) 1.77 mmol/L 0.50-2.00 Comprehensive metabolic panel - 02/19/18 15:45 Serum or plasma sodium measurement (moles/volume) 138 mmol/L 135-145 Serum or plasma potassium measurement (moles/volume) 4.0 mmol/L 3.6-5.0 Serum or plasma chloride measurement (moles/volume) 99 mmol/L 98-107 Carbon dioxide 28 mmol/L 21-32 Serum or plasma anion gap determination (moles/volume) 11 mmol/L 5-14 Serum or plasma urea nitrogen measurement (mass/volume) 22 mg/dL 7-18 Serum or plasma creatinine measurement (mass/volume) 1.56 mg/dL 0.60-1.30 Serum or plasma urea nitrogen/creatinine mass ratio 14 NRG Serum or plasma creatinine measurement with calculation of estimated glomerular filtration rate 34 NRG Serum or plasma glucose measurement (mass/volume) 136 mg/dL 70-105 Serum or plasma calcium measurement (mass/volume) 9.6 mg/dL 8.5-10.1 Serum or plasma total bilirubin measurement (mass/volume) 0.2 mg/dL 0.1-1.0 Serum or plasma alkaline phosphatase measurement (enzymatic activity/volume) 54 U/L 40-136 Serum or plasma aspartate aminotransferase measurement (enzymatic activity/ volume) 33 U/L 5-34 Serum or plasma alanine aminotransferase measurement (enzymatic activity/volume ) 32 U/L 0-55 Serum or plasma protein measurement (mass/volume) 8.4 g/dL 6.4-8.2 Serum or plasma albumin measurement (mass/volume) 4.1 g/dL 3.2-4.5 CALCIUM CORRECTED 9.5 mg/dL 8.5-10.1 Serum or plasma phosphate measurement (mass/volume) - 02/19/18 15:45 Serum or plasma phosphate measurement (mass/volume) 3.7 mg/dL 2.3-4.7 Magnesium - 02/19/18 15:45 Magnesium 1.8 mg/dL 1.8-2.4 Serum or plasma lithium measurement (moles/volume) - 02/19/18 15:45 BNP level < pg/mL <100.0 Bacterial blood culture - 02/19/18 15:50 QUANTITY OF GROWTH Isolated NRG Bacterial blood culture [id number] NRG Bacterial blood culture - 02/19/18 15:55 Bacterial blood culture NG NRG Bacterial blood culture - 02/19/18 16:00 Bacterial blood culture NG NRG Complete urinalysis with reflex to culture - 02/19/18 16:10 Urine color determination YELLOW NRG Urine clarity determination CLEAR NRG Urine pH measurement by test strip 6 5-9 Specific gravity of urine by test strip 1.015 1.016- 1.022 Urine protein assay by test strip, semi-quantitative NEGATIVE NEGATIVE Urine glucose detection by automated test strip NEGATIVE NEGATIVE Erythrocytes detection in urine sediment by light microscopy NEGATIVE NEGATIVE Urine ketones detection by automated test strip NEGATIVE NEGATIVE Urine nitrite detection by test strip NEGATIVE NEGATIVE Urine total bilirubin detection by test strip NEGATIVE NEGATIVE Urine urobilinogen measurement by automated test strip (mass/volume) NORMAL NORMAL Urine leukocyte esterase detection by dipstick 1+ NEGATIVE Automated urine sediment erythrocyte count by microscopy (number/high power field) NONE NRG Automated urine sediment leukocyte count by microscopy (number/high power field ) [HPF] NRG Bacteria detection in urine sediment by light microscopy NONE NRG Squamous epithelial cells detection in urine sediment by light microscopy 0-2 NRG Crystals detection in urine sediment by light microscopy NONE NRG Casts detection in urine sediment by light microscopy NONE NRG Mucus detection in urine sediment by light microscopy NEGATIVE NRG Complete urinalysis with reflex to culture NO NRG Sputum Gram stain - 02/19/18 16:10 Sputum Gram stain relevant, interpret with caution. NRG Bacterial sputum culture - 02/19/18 16:10 FREE TEXT EXTERNAL RML SENSITIVITY REPORTED 02/22/18 14:05 NRG QUANTITY OF GROWTH . NRG Bacterial sputum culture USUAL RESP NRG RML Sensitivity Panel - 02/19/18 16:10 Gentamicin susceptibility test by minimum inhibitory concentration < = NRG Levofloxacin susceptibility test by minimum inhibitory concentration <= NRG Tobramycin susceptibility test by minimum inhibitory concentration S NRG Piperacillin/tazobactam susceptibility test by minimum inhibitory concentration S NRG Ciprofloxacin susceptibility test by minimum inhibitory concentration <= NRG Meropenem susceptibility test by minimum inhibitory concentration < = NRG Aztreonam susceptibility test by minimum inhibitory concentration < = NRG Cefepime susceptibility test by minimum inhibitory concentration <= NRG Imipenem susceptibility test by minimum inhibitory concentration S NRG Ceftazidime susceptibility test by minimum inhibitory concentration <= NRG Serum or plasma troponin i.cardiac measurement (mass/volume) - 02/19/18 18:00 Serum or plasma troponin i.cardiac measurement (mass/volume) < ng/ mL <0.30 Capillary blood glucose measurement by glucometer (mass/volume) - 02/19/18 18: 40 Capillary blood glucose measurement by glucometer (mass/volume) 119 mg/dL 70-110 Serum or plasma troponin i.cardiac measurement (mass/volume) - 02/19/18 23:57 Serum or plasma troponin i.cardiac measurement (mass/volume) < ng/ mL <0.30 Complete blood count (CBC) with automated white blood cell (WBC) differential - 02/20/18 04:05 Blood leukocytes automated count (number/volume) 8.5 10*3/uL 4.3-11.0 Blood erythrocytes automated count (number/volume) 4.26 10*6/uL 4.35-5.85 Venous blood hemoglobin measurement (mass/volume) 10.7 g/dL 11.5-16.0 Blood hematocrit (volume fraction) 34 % 35-52 Automated erythrocyte mean corpuscular volume 80 [foz_us] 80-99 Automated erythrocyte mean corpuscular hemoglobin (mass per erythrocyte) 25 pg 25-34 Automated erythrocyte mean corpuscular hemoglobin concentration measurement ( mass/volume) 31 g/dL 32-36 Automated erythrocyte distribution width ratio 17.7 % 10.0-14.5 Automated blood platelet count (count/volume) 375 10*3/uL 130-400 Automated blood platelet mean volume measurement 10.6 [foz_us] 7.4-10.4 Automated blood neutrophils/100 leukocytes 57 % 42-75 Automated blood lymphocytes/100 leukocytes 29 % 12-44 Blood monocytes/100 leukocytes 11 % 0-12 Automated blood eosinophils/100 leukocytes 3 % 0-10 Automated blood basophils/100 leukocytes 0 % 0-10 Blood neutrophils automated count (number/volume) 4.8 10*3 1.8-7.8 Blood lymphocytes automated count (number/volume) 2.5 10*3 1.0-4.0 Blood monocytes automated count (number/volume) 0.9 10*3 0.0-1.0 Automated eosinophil count 0.2 10*3/uL 0.0-0.3 Automated blood basophil count (count/volume) 0.0 10*3/uL 0.0-0.1 Whole blood basic metabolic panel - 02/20/18 04:05 Serum or plasma sodium measurement (moles/volume) 139 mmol/L 135-145 Serum or plasma potassium measurement (moles/volume) 3.7 mmol/L 3.6-5.0 Serum or plasma chloride measurement (moles/volume) 102 mmol/L 98-107 Carbon dioxide 21 mmol/L 21-32 Serum or plasma anion gap determination (moles/volume) 16 mmol/L 5-14 Serum or plasma urea nitrogen measurement (mass/volume) 20 mg/dL 7-18 Serum or plasma creatinine measurement (mass/volume) 1.22 mg/dL 0.60-1.30 Serum or plasma urea nitrogen/creatinine mass ratio 16 NRG Serum or plasma creatinine measurement with calculation of estimated glomerular filtration rate 46 NRG Serum or plasma glucose measurement (mass/volume) 136 mg/dL 70-105 Serum or plasma calcium measurement (mass/volume) 9.3 mg/dL 8.5-10.1 Serum or plasma phosphate measurement (mass/volume) - 02/20/18 04:05 Serum or plasma phosphate measurement (mass/volume) 3.8 mg/dL 2.3-4.7 Magnesium - 02/20/18 04:05 Magnesium 1.9 mg/dL 1.8-2.4 Encounters ACCT No. Visit Date/Time Discharge Status Pt. Type Provider Facility Loc./Unit Complaint [id number] 05/27/2013 14:04:00 05/27/2013 23:59:59 CLS Outpatient OTONIEL GABRIELLA STEWART [place] [id number] 08/12/2016 08:42:00 Document Registration [id number] 02/19/2018 15:10:00 02/20/2018 16:30:00 DIS Inpatient GUSTAVO LARA MD [facility] 4TH PNEUMONIA;R/O SEPSIS [id number] 10/26/2017 13:20:00 10/26/2017 23:59:59 CLS Outpatient KATIE JEFFRIES FRONT [employer] LEADER [facility] RAD E11.8 TYPE 2 DIABETES MELLITUS W/ UNSPECIFIED COMP [id number] 09/01/2017 12:17:00 09/01/2017 23:59:59 CLS Outpatient KATIE JEFFRIES FRONT [employer] LEADER [facility] RAD R59.0 ENLARGED LYMPH NODES IN ARMPIT [id number] 04/26/2017 10:29:00 04/26/2017 16:10:00 DIS Outpatient LORI ALICEA MD [facility] SDC LEFT SHOULDER TORN ROTATOR CUFF [id number] 04/20/2017 13:42:00 04/20/2017 14:05:00 DIS Outpatient LORI ALICEA MD [facility] PREOP LEFT SHOULDER TORN ROTATOR CUFF [id number] 03/07/2017 08:22:00 03/07/2017 23:59:59 CLS Outpatient DEBBI LYNN DO [facility] RAD ABD PAIN R10.11 [id number] 02/28/2017 09:36:00 02/28/2017 12:35:00 DIS Outpatient DEBBI LYNN DO [facility] ENDO REFLUX [id number] 02/23/2017 05:40:00 02/23/2017 14:26:00 DIS Outpatient DEBBI LYNN DO [facility] PREOP REFLUX [id number] 12/03/2016 21:14:00 12/04/2016 06:18:00 DIS Outpatient LAKE HERNÁNDEZ DO [facility] SLEEP DALTON,SNORING [id number] 10/27/2016 11:17:00 10/27/2016 23:59:59 CLS Outpatient LAKE HERNÁNDEZ DO [facility] RAD J44.9 R91.8 R06.02 Z72.0 [id number] 09/07/2016 15:21:00 09/07/2016 23:59:59 CLS Outpatient KATIE JEFFRIES APRN [facility] RAD LT ANTERIOR SHOULDER PAIN [id number] 11/24/2015 06:44:00 11/24/2015 12:15:00 DIS Outpatient FRANC DREW FACC, GHASSAN CESPEDES CCDS [facility] CATH CHEST PAIN, SOB, DM, HTN, HL [id number] 11/12/2015 13:26:00 11/12/2015 23:59:59 CLS Outpatient GHASSAN BRUNER MD, FACC, FACP CCDS [facility] CARD CHEST DISCOMFORT,SOB,DIABETES,HTN, [id number] 11/11/2015 14:31:00 11/11/2015 23:59:59 CLS Outpatient LAKE HERNÁNDEZ DO [facility] RAD COPD, LUNG NODULES [id number] 10/02/2015 20:06:00 10/05/2015 14:00:00 DIS Inpatient BRYAN MARTEL MD [facility] 4TH ACUTE RENAL FAILURE,COPD EXACERBATION,HYPONATREMIA [id number] 07/21/2015 07:47:00 07/21/2015 23:59:59 CLS Outpatient DEBBI LYNN DO [facility] SDC SCREENING [id number] 07/20/2015 12:42:00 07/20/2015 23:59:59 CLS Outpatient DEBBI LYNN DO [facility] PREOP COLONOSCOPY [id number] 11/26/2014 15:31:00 11/26/2014 23:59:59 CLS Outpatient DORY DUMONT MD (DDU) [facility] RT [id number] 09/18/2013 11:17:00 09/18/2013 23:59:59 CLS Outpatient [id number] 11/26/2014 15:32:05 ACT Document Registration [id number] 02/08/2017 12:09:00 Document Registration [id number] 03/26/2017 00:05:00 Document Registration [id number] 05/02/2016 13:05:00 Document Registration [id number] 01/08/2018 10:00:00 01/08/2018 23:59:59 CLS Outpatient KATIE JEFFRIES [facility] [id number] 08/14/2017 13:20:00 Document Registration [id number] 05/03/2017 10:40:00 Document Registration [id number] 03/24/2017 11:20:00 Document Registration [id number] 02/07/2017 15:40:00 Document Registration
== END 2018-02-20 16:30 | disposition home or self-care (01) ==
LOC: 4TH 15:10 → EDSTATUS 15:10 → 4TH 15:33 → UNDOADMIN 15:33 → UNDODISIN 02-20 16:30
PROVIDERS: ADMIT Family Medicine; ATTEND Family Medicine
DX: J18.9 Pneumonia, unspecified organism (principal); J44.0 Chronic obstructive pulmonary disease with (acute) lower respiratory infection; J44.1 Chronic obstructive pulmonary disease with (acute) exacerbation; N17.9 Acute kidney failure, unspecified; G47.33 Obstructive sleep apnea (adult) (pediatric); I12.9 Hypertensive chronic kidney disease with stage 1 through stage 4 chronic kidney disease, or unspecified chronic kidney disease; N18.9 Chronic kidney disease, unspecified; E78.00 Pure hypercholesterolemia, unspecified; E11.43 Type 2 diabetes mellitus with diabetic autonomic (poly)neuropathy; K21.9 Gastro-esophageal reflux disease without esophagitis; M79.7 Fibromyalgia; M19.91 Primary osteoarthritis, unspecified site; F32.9 Major depressive disorder, single episode, unspecified; F41.9 Anxiety disorder, unspecified; E27.9 Disorder of adrenal gland, unspecified; K76.0 Fatty (change of) liver, not elsewhere classified; R59.1 Generalized enlarged lymph nodes; Z79.82 Long term (current) use of aspirin; Z79.4 Long term (current) use of insulin; Z87.891 Personal history of nicotine dependence
CPT/HCPCS: 36415; 36600; 71045; 71275; 80048; 80053; 81000; 82805; 82962; 83605; 83735; 83880; 84100; 84484; 85025; 87040; 87070; 87077; 87186; 87205; 94640; 94760; 99211; G0378

== ENCOUNTER → 2018-09-27 | Outpatient (CLI) | payer MEDICAID ==
[~2018-09-27] MED LIST changes: +ALPR0.5T7 PO; +CEFD300C3 PO; +FENO160T12 PO; +FERR325T5 PO; +GABA-488 PO; -GEMF600T4 PO; +GEMF600T8 PO; +HYDR-3812 PO; +INSU100I14 SC; +INSU100I29 SC; +LIRA0.6P SC; +PARO20TA5 PO; +POLY255P16 PO; +PRD10T PO; +TORS20TA3 PO
[2018-09-27 16:03] LABS: HEMATOCRIT 41 % (35-52); HEMOGLOBIN 12.9 G/DL (11.5-16.0); MEAN CORPUSCULAR HEMOGLOBIN 28 PG (25-34); MEAN CORPUSCULAR VOLUME 91 FL (80-99); WHITE BLOOD COUNT 13.2 10^3/uL (4.3-11.0)
[2018-09-27 16:04] LABS: BASOPHILS # (AUTO) 0.1 10^3/uL (0.0-0.1); BASOPHILS % (AUTO) 0 % (0-10); EOSINOPHILS # (AUTO) 0.3 10^3/uL (0.0-0.3); EOSINOPHILS % (AUTO) 2 % (0-10); LYMPHOCYTES # (AUTO) 3.7 X 10^3 (1.0-4.0); LYMPHOCYTES % (AUTO) 28 % (12-44); MEAN CORPUSCULAR HGB CONC 31 G/DL (32-36); MONOCYTES # (AUTO) 0.9 X 10^3 (0.0-1.0); MONOCYTES % (AUTO) 7 % (0-12); NEUTROPHILS # (AUTO) 8.2 X 10^3 (1.8-7.8); NEUTROPHILS % (AUTO) 62 % (42-75); PLATELET COUNT 376 10^3/uL (130-400); RED CELL DISTRIBUTION WIDTH 15.6 % (10.0-14.5)
--- NOTE | 2018-09-27 16:20 | Diagnostic Imaging Report ---
CLINICAL INDICATION: Patient with COPD and shortness of breath x1 week. EXAM: Chest x-ray PA and lateral views. COMPARISONS: Chest x-ray dated 02/20/2018. CT angiogram of the chest dated 02/20/2018. FINDINGS: Lungs/pleura: Stable chronic increased lung markings in both lung bases. There is no interval lung infiltrate. There is no pneumothorax. There is no pleural effusion. Mediastinum: Unremarkable. Pulmonary vasculature: Unremarkable. Heart: Unremarkable. Bones/extrathoracic soft tissue: Unremarkable. IMPRESSION: Stable chest x-ray exam with no interval radiographic evidence of acute cardiopulmonary process. Dictated by: Dictated on workstation # [id number]
[2018-09-27 16:44] LABS: BILIRUBIN,TOTAL 0.2 MG/DL (0.1-1.0); CREATININE SERUM 1.11 MG/DL (0.60-1.30); POTASSIUM 4.3 MMOL/L (3.6-5.0)
[2018-09-27 16:45] LABS: ALBUMIN 3.9 GM/DL (3.2-4.5); TOTAL PROTEIN 7.8 GM/DL (6.4-8.2)
== END ==
LOC: RAD FS 15:46
PROVIDERS: ATTEND Emergency Medicine
DX: J44.0 Chronic obstructive pulmonary disease with (acute) lower respiratory infection (principal)
CPT/HCPCS: 36415; 71046; 80053; 85025

== ENCOUNTER → 2018-11-06 | Outpatient (CLI) | payer MEDICAID ==
[~2018-11-06] MED LIST changes: -TRAZ-189 PO; +TRAZ-222 PO
[2018-11-06 15:02] LABS: CREATININE SERUM 1.32 MG/DL (0.60-1.30)
--- NOTE | 2018-11-06 17:20 | Diagnostic Imaging Report ---
PROCEDURE: CT chest without contrast. TECHNIQUE: Multiple contiguous axial images were obtained through the chest without the use of intravenous contrast. Auto Exposure Controls were utilized during the CT exam to meet ALARA standards for radiation dose reduction. INDICATION: Cough and shortness of air. COMPARISON: Comparison is made with prior CT chest from 02/20/2018. FINDINGS: No axillary lymphadenopathy is seen. Previously noted right paratracheal lymph node appears to be stable. Lisa are difficult to evaluate due to absence of intravenous contrast. No pericardial or pleural fluid is identified. Subpleural nodule in the right upper lobe is stable at 5 mm, image 14. Nodular density posterior left lower lobe is stable at 7 mm, image 51. There has been generalized improved aeration of both lungs when compared with prior CT. Upper abdomen again demonstrates a left adrenal mass, stable. IMPRESSION: Overall improved aeration of both lungs when compared with prior CT from 02/20/2018. Right upper lobe and left lower lobe nodular densities are stable. Left adrenal mass is stable. No new abnormality is detected. Dictated by: Dictated on workstation # [id number]
== END ==
LOC: RAD 14:22
PROVIDERS: ATTEND Nurse Practitioner Family
DX: J44.9 Chronic obstructive pulmonary disease, unspecified (principal); J98.4 Other disorders of lung; E27.8 Other specified disorders of adrenal gland; R59.1 Generalized enlarged lymph nodes; Z72.0 Tobacco use
CPT/HCPCS: 36415; 71250; 82565; 84520

== ENCOUNTER → 2018-11-07 | Outpatient (CLI) | payer MEDICAID ==
[~2018-11-07] MED LIST changes: +RT-ALBUTEROL SULF 2.5 MG/3 ML PRE-MIX VIAL INH SCH
== END ==
LOC: RT 09:42
PROVIDERS: ATTEND Nurse Practitioner Family
DX: R91.8 Other nonspecific abnormal finding of lung field (principal); G47.33 Obstructive sleep apnea (adult) (pediatric); J44.9 Chronic obstructive pulmonary disease, unspecified; R07.89 Other chest pain; R06.02 Shortness of breath; R59.1 Generalized enlarged lymph nodes; Z72.0 Tobacco use
CPT/HCPCS: 94060; 94640; 94726; 94729

== ENCOUNTER → 2019-01-29 | Outpatient (CLI) | payer MEDICAID ==
[~2019-01-29] MED LIST changes: +CATHETER FLUSH 10 ML SYR IV PRN; +REGADENOSON 0.4 MG/5 ML SYR (LEXISCAN) IV ONE; -RT-ALBUTEROL SULF 2.5 MG/3 ML PRE-MIX VIAL INH SCH
[2019-01-29 09:11] VITALS: BP 149/78
[2019-01-29 09:18] VITALS: BP 156/56
--- NOTE | 2019-01-29 13:56 | STRESS TEST ---
DATE OF SERVICE: 01/29/2019 RESTING AND POST REGADENOSON TECHNETIUM-99M TETROFOSMIN SPECT CT IMAGING ORDERING PHYSICIAN: Dr. Moody CLINICAL DIAGNOSIS: Shortness of breath. Baseline images were carried out after injection of 10.92 mCi of technetium-99m Tetrofosmin. This was followed by 0.4 mg of Regadenoson and 29.3 mCi of technetium-99m Tetrofosmin for stress imaging. The electrocardiogram showed sinus rhythm at baseline. It did not change significantly with the Regadenoson infusion. The patient tolerated the procedure well. Review of images at rest and following stress does not indicate any distinct perfusion defects consistent with significant myocardial ischemia or infarction. Gated images show normal global left ventricular systolic function with normal regional wall motion. Left ventricular ejection fraction is calculated to be 76%. Left ventricular end diastolic volume is 48 mL. TID is absent (1.09). CONCLUSIONS: 1. No evidence of significant myocardial ischemia or infarction on this study. 2. Normal regional wall motion. 3. Normal global left ventricular systolic function with a calculated ejection fraction of 76%. Job ID: [id number] DocumentID: [id number] Dictated Date: 01/29/2019 13:23:19 Tube Rebuilder Date: 01/29/2019 13:55:11 Dictated By: GHASSAN MOODY MD, MA, FACP, FACC, MTDD
== END ==
LOC: CARD 07:32
PROVIDERS: ATTEND Internal Medicine Cardiovascular Disease
DX: J44.9 Chronic obstructive pulmonary disease, unspecified (principal); I10 Essential (primary) hypertension; E11.9 Type 2 diabetes mellitus without complications; Z72.0 Tobacco use
CPT/HCPCS: 78452; 93017; 93306

== ENCOUNTER → 2019-07-05 | Outpatient (CLI) | payer MEDICAID ==
[~2019-07-05] MED LIST changes: -REGADENOSON 0.4 MG/5 ML SYR (LEXISCAN) IV ONE; -TRAZ-222 PO; +TRZ50T PO
--- NOTE | 2019-07-05 17:07 | Diagnostic Imaging Report ---
EXAMINATION: Gallbladder scintigraphy. HISTORY: Right upper quadrant pain. COMPARISON: None available. TECHNIQUE: Anterior scintigraphic imaging of the abdomen was performed after the intravenous administration of 5.5 mCi Tc-99m Choletec. FINDINGS: The upper abdomen was imaged for 60 minutes with the gamma camera. There is prompt homogeneous uptake of radiopharmaceutical by the liver. There is activity in the common duct and gallbladder by 10 minutes. Small bowel activity is seen by 25 minutes. At 45 minutes minutes, the patient received 8 ounces of Ensure. An additional 45 minutes, the gallbladder ejection fraction was calculated to be 77% (normal is >35%) IMPRESSION: 1. Patent common and cystic bile ducts. 2. No gallbladder dysfunction. Dictated by: Dictated on workstation # [id number]
== END ==
LOC: CARD 11:37
PROVIDERS: ATTEND Nurse Practitioner Family
DX: R10.11 Right upper quadrant pain (principal)
CPT/HCPCS: 78227

== ENCOUNTER → 2019-07-05 | Outpatient (CLI) | payer MEDICAID ==
[~2019-07-05] MED LIST changes: -CATHETER FLUSH 10 ML SYR IV PRN
--- NOTE | 2019-07-05 12:20 | Diagnostic Imaging Report ---
EXAMINATION: PA and lateral chest at 11:57 a.m. INDICATION: Shortness of breath. FINDINGS: The heart size is within normal limits and stable when compared to 09/27/2018. The lungs are clear. There is no evidence for failure, pneumonia or for a pleural effusion to indicate an acute abnormality. The mediastinum is not widened. The osseous structures are intact. The orthopedic fixation screw overlying the left humeral head seen previously is again evident. IMPRESSION: There is no evidence for active disease. Dictated by: Dictated on workstation # [id number]
[2019-07-05 14:10] LABS: BASOPHILS % (AUTO) 0 % (0-10); EOSINOPHILS # (AUTO) 0.3 10^3/uL (0.0-0.3); EOSINOPHILS % (AUTO) 3 % (0-10); HEMATOCRIT 37 % (35-52); HEMOGLOBIN 11.8 G/DL (11.5-16.0); LYMPHOCYTES # (AUTO) 1.7 X 10^3 (1.0-4.0); LYMPHOCYTES % (AUTO) 16 % (12-44); MEAN CORPUSCULAR HEMOGLOBIN 29 PG (25-34); MEAN CORPUSCULAR HGB CONC 32 G/DL (32-36); MEAN CORPUSCULAR VOLUME 92 FL (80-99); MEAN PLATELET VOLUME 9.7 FL (7.4-10.4); MONOCYTES # (AUTO) 0.8 X 10^3 (0.0-1.0); MONOCYTES % (AUTO) 7 % (0-12); NEUTROPHILS # (AUTO) 7.9 X 10^3 (1.8-7.8); NEUTROPHILS % (AUTO) 74 % (42-75); PLATELET COUNT 274 10^3/uL (130-400); WHITE BLOOD COUNT 10.6 10^3/uL (4.3-11.0)
[2019-07-05 15:43] LABS: ABG BASE EXCESS 4.2 MMOL/L (-2.5-2.5); ABG OXYGEN SATURATION 93 % (94-100); ABG PCO2 41 MMHG (35-45); ABG PH 7.45 (7.37-7.43); ABG PO2 67 MMHG (79-93); ABG TCO2 29.4 MMOL/L (21.0-31.0)
[2019-07-05 15:44] LABS: ALLENS TEST POS; INSPIRED O2 ROOM AIR; PATIENT TEMP 36.9; VENTILATOR NO
== END ==
LOC: PULM 11:40
PROVIDERS: ATTEND Nurse Practitioner Family
DX: J44.9 Chronic obstructive pulmonary disease, unspecified (principal); G47.33 Obstructive sleep apnea (adult) (pediatric); Z72.0 Tobacco use
CPT/HCPCS: 36415; 71046; 82805; 85025

== ENCOUNTER → 2019-08-16 | Outpatient (CLI) | payer MEDICAID ==
[~2019-08-16] MED LIST changes: +CATHETER FLUSH 10 ML SYR IV PRN; +HOLD METFORMIN - RECEIVED CONTRAST 20 ML VIAL IV SCH; -HYDR-3812 PO; +IOHEXOL 350 MG/ML 100 ML (OMNIPAQUE 350) VIAL IV ONE; -MONT10TA24 PO; +MONT10TA26 PO; +NS 100 ML (IVPB) BAG IV ONE
[2019-08-16 10:06] LABS: CREATININE SERUM 1.11 MG/DL (0.60-1.30)
--- NOTE | 2019-08-16 12:53 | Diagnostic Imaging Report ---
PROCEDURE: CT abdomen and pelvis with contrast. TECHNIQUE: Multiple contiguous axial images were obtained through the abdomen and pelvis after administration of intravenous contrast. Auto Exposure Controls were utilized during the CT exam to meet ALARA standards for radiation dose reduction. INDICATION: Right upper quadrant pain for six months. Patient has had multiple hernia repairs. COMPARISON: No prior studies are available for comparison. FINDINGS: Lung bases are clear. Generalized low density throughout the liver is noted consistent with hepatic steatosis. The liver is also enlarged measuring up to 26.4 cm cephalocaudal. No discrete liver mass is detected. Gallbladder is unremarkable. There is no biliary ductal dilatation. The pancreas and spleen are unremarkable. Right adrenal glands are unremarkable. There is a mass involving the left adrenal gland measuring 2.9 cm. This is stable when compared with prior CT chest from 11/06/2018. The kidneys are unremarkable. Aorta is non-aneurysmal. No central, retroperitoneal or mesenteric lymphadenopathy is detected. Small and large bowel loops are normal caliber. There is diverticulosis of the sigmoid colon. No definite findings to suggest diverticulitis are identified. No free fluid or fluid collection is identified in the abdomen or pelvis. Unopacified bladder is unremarkable. Uterus appears to be surgically absent. No definite abdominal or pelvic lymphadenopathy is seen. Bony structures are nonacute. IMPRESSION: 1. Hepatic steatosis and hepatomegaly. No discrete liver mass is detected. 2. Uncomplicated sigmoid diverticulosis. 3. No other significant abnormality is seen. Dictated by: Dictated on workstation # [id number]
== END ==
LOC: LAB FS 09:27
PROVIDERS: ATTEND Surgery
DX: K76.0 Fatty (change of) liver, not elsewhere classified (principal); K57.30 Diverticulosis of large intestine without perforation or abscess without bleeding
CPT/HCPCS: 36415; 74177; 82565; 84520

== ENCOUNTER → 2019-12-04 | Outpatient (CLI) | payer MEDICAID ==
[~2019-12-04] MED LIST changes: -CATHETER FLUSH 10 ML SYR IV PRN; -HOLD METFORMIN - RECEIVED CONTRAST 20 ML VIAL IV SCH; -IOHEXOL 350 MG/ML 100 ML (OMNIPAQUE 350) VIAL IV ONE; -NS 100 ML (IVPB) BAG IV ONE
[2019-12-04 13:20] LABS: CREATININE SERUM 1.36 MG/DL (0.60-1.30)
--- NOTE | 2019-12-04 15:04 | Diagnostic Imaging Report ---
PROCEDURE: CT chest without contrast. TECHNIQUE: Multiple contiguous axial images were obtained through the chest without the use of intravenous contrast. Auto Exposure Controls were utilized during the CT exam to meet ALARA standards for radiation dose reduction. INDICATION: History of tobacco use, pulmonary nodules. CORRELATION: 11/06/2018-11/11/2015. FINDINGS: Partial visualization of the neck demonstrates a retropharyngeal course of the common carotid arteries with calcification present. Visualized portion of the thyroid gland appearing unremarkable. There are a few mildly prominent but nonpathologically enlarged mediastinal lymph nodes, stable. The heart size is within normal limits. Dense annular calcification of the mitral valve with scattered mild coronary artery calcification. No pericardial effusion. Thoracic aortic contour unremarkable. Image 44 series 3, approximately 6 x 4 mm subpleural nodule lateral right upper lobe, generally stable, previously 5 x 5 mm. Image 132 series 3, 7 mm nodule deep posterior left costophrenic angle, stable, previously 7 mm. A few scattered areas of bullous changes. No infiltrate. No effusion. 3.3 x 3.1 cm left adrenal gland mass appears stable. Low Hounsfield unit most compatible with adenoma. Partially visualized liver does appear to be likely enlarged. The visualized osseous structures demonstrate no acute findings. IMPRESSION: Generally stable appearance of right upper lobe and left lower lobe nodular density. No acute abnormality or significant interval change. Dictated by: Dictated on workstation # [id number]
== END ==
LOC: RAD FS 12:08
PROVIDERS: ATTEND Nurse Practitioner Family
DX: R91.8 Other nonspecific abnormal finding of lung field (principal); R07.9 Chest pain, unspecified; J44.9 Chronic obstructive pulmonary disease, unspecified; R06.02 Shortness of breath; G47.33 Obstructive sleep apnea (adult) (pediatric); Z72.0 Tobacco use
CPT/HCPCS: 36415; 71250; 82565; 84520

== ENCOUNTER → 2020-04-06 | Outpatient (CLI) | payer MEDICAID ==
[~2020-04-06] MED LIST changes: -PANT40TA3 PO; +PANT40TA52 PO
[2020-04-06 08:35] LABS: HEMATOCRIT 43 % (35-52); HEMOGLOBIN 13.9 G/DL (11.5-16.0); MEAN CORPUSCULAR HEMOGLOBIN 29 PG (25-34); MEAN CORPUSCULAR HGB CONC 33 G/DL (32-36); MEAN CORPUSCULAR VOLUME 88 FL (80-99); WHITE BLOOD COUNT 11.2 10^3/uL (4.3-11.0)
[2020-04-06 08:36] LABS: BASOPHILS # (AUTO) 0.1 10^3/uL (0.0-0.1); BASOPHILS % (AUTO) 1 % (0-10); EOSINOPHILS # (AUTO) 0.6 10^3/uL (0.0-0.3); EOSINOPHILS % (AUTO) 5 % (0-10); LYMPHOCYTES # (AUTO) 3.5 X 10^3 (1.0-4.0); LYMPHOCYTES % (AUTO) 31 % (12-44); MEAN PLATELET VOLUME 9.4 FL (7.4-10.4); MONOCYTES % (AUTO) 9 % (0-12); NEUTROPHILS # (AUTO) 6.1 X 10^3 (1.8-7.8); NEUTROPHILS % (AUTO) 55 % (42-75); PLATELET COUNT 351 10^3/uL (130-400)
[2020-04-06 08:56] LABS: ALBUMIN 4.1 GM/DL (3.2-4.5); CALCIUM 9.5 MG/DL (8.5-10.1); CREATININE SERUM 1.4 MG/DL (0.60-1.30); POTASSIUM 4.2 MMOL/L (3.6-5.0)
[2020-04-06 15:05] LABS: PHOSPHORUS 4.2 MG/DL (2.3-4.7)
[2020-04-06 15:07] LABS: URIC ACID 5.2 MG/DL (2.6-7.2)
== END ==
LOC: LAB FS 08:08
PROVIDERS: ATTEND Internal Medicine Nephrology
DX: I13.10 Hypertensive heart and chronic kidney disease without heart failure, with stage 1 through stage 4 chronic kidney disease, or unspecified chronic kidney disease (principal); N18.30 Chronic kidney disease, stage 3 unspecified; D64.9 Anemia, unspecified; R60.0 Localized edema
CPT/HCPCS: 36415; 80069; 82306; 82570; 83970; 84156; 84550; 85025

== ENCOUNTER 2022-06-20 20:12 | Inpatient (IN) | payer MEDICARE, MEDICAID ==
[~2022-06-20] VITALS: Ht 152.4 cm; Wt 111.4 kg
[~2022-06-20 20:12] MED LIST changes: +ALBU8.5H6 IH; -BENA5TAB3 PO; +BENA5TAB36 PO; +CYCL10TA25 PO; -CYCL10TA9 PO; -GEMF600T8 PO; +GEMF600T88 PO; -LISI-552 PO; +LISI20TA26 PO; +METAMUCIL0.52 GM PO; +MONT-40 PO; -MONT10TA26 PO; +PARO-124 PO; -PARO-49 PO; +POTA-160 PO; -POTA10TA6 PO; -PSYL0.5211 PO; -RT-ALBUINH IH; +VANCOMYCIN 1 GM/NS 250 ML IVPB IV ONE
[2022-06-20] MEDS ORDERED: VANCOMYCIN INJECTION 1,000 MG in NS (IVPB) 250 ML IV ONE (21:00)
[2022-06-20] MEDS ORDERED: PIPERACILLIN SODIUM/TAZOBACTAM 4.5 GM in NS (IVPB) 100 ML IV ONE (21:00)
[2022-06-20] MEDS ORDERED: LACTATED RINGERS 1,000 ML IV SCH (21:00)
[2022-06-20 21:22] LABS: BASOPHILS # (AUTO) 0.1 10^3/uL (0.0-0.1); BASOPHILS % (AUTO) 1 % (0-10); EOSINOPHILS # (AUTO) 0.5 10^3/uL (0.0-0.3); EOSINOPHILS % (AUTO) 3 % (0-10); HEMATOCRIT 41 % (35-52); HEMOGLOBIN 13.3 g/dL (11.5-16.0); LYMPHOCYTES # (AUTO) 2.7 10^3/uL (1.0-4.0); LYMPHOCYTES % (AUTO) 20 % (12-44); MEAN CORPUSCULAR HEMOGLOBIN 28 pg (25-34); MEAN CORPUSCULAR HGB CONC 33 g/dL (32-36); MEAN CORPUSCULAR VOLUME 86 fL (80-99); MONOCYTES # (AUTO) 1.1 10^3/uL (0.0-1.0); MONOCYTES % (AUTO) 8 % (0-12); NEUTROPHILS # (AUTO) 9.5 10^3/uL (1.8-7.8); NEUTROPHILS % (AUTO) 68 % (42-75); PLATELET COUNT 366 10^3/uL (130-400)
[2022-06-20 21:33] LABS: ALBUMIN 3.5 GM/DL (3.2-4.5); POTASSIUM 4.4 MMOL/L (3.6-5.0)
[2022-06-20 21:34] LABS: CALCIUM 9.2 MG/DL (8.5-10.1)
[2022-06-20 21:35] LABS: TOTAL PROTEIN 7.8 GM/DL (6.4-8.2)
[2022-06-20 21:36] LABS: PROTHROMBIN TIME PATIENT 13.8 SEC (12.2-14.7)
[2022-06-20 21:37] LABS: BILIRUBIN,TOTAL 0.3 MG/DL (0.1-1.0)
[2022-06-20 21:39] LABS: CREATININE SERUM 1.42 MG/DL (0.60-1.30)
[2022-06-20] MEDS ORDERED: HOLD METFORMIN - RECEIVED CONTRAST 20 ML VIAL IV SCH (22:00)
[2022-06-20] MEDS ORDERED: IOHEXOL 350 MG/ML 100 ML (OMNIPAQUE 350) VIAL IV ONE (22:00)
[2022-06-20] MEDS ORDERED: NS 100 ML (IVPB) BAG IV ONE (22:00)
--- NOTE | 2022-06-20 22:04 | Diagnostic Imaging Report ---
PROCEDURE: CT maxillofacial with contrast. TECHNIQUE: After intravenous administration of contrast, axial images were obtained through the face and reformatted into coronal and sagittal planes. Auto Exposure Controls were utilized during the CT exam to meet ALARA standards for radiation dose reduction. DATE: June 20, 2022. INDICATION: 62-year-old female, burning sensation of the left face. Evaluation for cellulitis or abscess. COMPARISON: None. FINDINGS: There is prominent inflammatory stranding in the subcutaneous tissues in the region of the left cheek and extending posteriorly and laterally. There is no identified focal fluid collection or abscess. There is also soft tissue swelling superficial to the left orbit. The globes are grossly intact. There is no retro-orbital fluid collection or altered attenuation. There are probable intraparotid lymph nodes on the left. There is no air-fluid level in the paranasal sinuses. The paranasal sinuses are well-aerated. The mastoid air cells and middle ears are well-aerated. IMPRESSION: 1. Prominent subcutaneous edema in the region of the left cheek extending laterally and posteriorly and also superficial to the left orbit without identified focal fluid collection or abscess. This may reflect cellulitis in the appropriate clinical scenario. 2. No abnormal postseptal attenuation. Dictated by: Dictated on workstation # [id number]
--- NOTE | 2022-06-20 22:24 | ED EENT ---
History of Present Illness General Chief Complaint: Facial Problems Stated Complaint: SPIDER BITE,FACE SWOLLEN/RED Nursing Triage Note: Pt reports a burning sensation on left side of face on 07/09/21. Pt brushed area and felt nothing. Over next several days, pt noticed redness, hardness, swelling, warmth to left side of face extending from forehead to ear, with areas of hardness extending into neck, no drainage noted. Pt called a one call doctor number 06/16/22 and was prescribed doxycycline 100 mg BID, zofran and motion sickness pills. Pt started taking double the dosage on 06/17/22 of doxy d/t no change in symptoms. She called back on 06/18/22 and was told to go to the ER, which she did not. Pt had family convince her to come to ER tonight. Pt last took pain medication at 1900, has been taking hydrocodone and Tylenol arthritis for pain relief. Source: patient Exam Limitations: no limitations (LAKE ARCHIBALD APRN) History of Present Illness Date Seen by Provider: Jun 20, 2022 Time Seen by Provider: 20:50 Initial Comments History was obtained from patient and her nephew who is at bedside. Patient is a 62-year-old female who presents to the emergency department for e valuation of left-sided facial redness, swelling, and pain that has progressively worsened over the last 12 days. She states that symptoms began on June 08 when she noticed some pain and burning sensation to the left side of her face. She states the area became progressively more red and swollen since that time. She states she has also had increasing swelling around her left eye that is typically worse in the morning. She states she has had a fever with a T-max of 102. She was seen by a telehealth physician last week where she was placed on doxycycline. She states she has been taking a double dose of the doxycycline every morning and evening but has not seen much improvement in her symptoms. Patient was seen by her PCP today and referred to the ER for further evaluation. Patient denies any pain with eye movement. She denies any drainage from the affected areas. Denies any specific injury prior to onset of symptoms. She states the pain also radiates in front of her ear and down into her neck. She has a history of diabetes. She has been taking Tylenol for the pain with minimal improvement. (ARCHIBALD,LAKE CONTENT CURATOR) Allergies and Home Medications Allergies Coded Allergies: duloxetine (Verified Allergy, Unknown, SUICIDAL THOUGHTS, SEVERE DEPRESSION, 07/20/15) rosuvastatin (Verified Adverse Reaction, Mild, 10/02/15) Patient states she "gets very angry" while taking Patient Home Medication List Home Medication List Reviewed: Yes (LAKE ARCHIBALD CONTENT CURATOR) Albuterol Sulfate (Albuterol Sulfate) 2.5 Mg/3 Ml Vial.neb, 2.5 MG NEB TID PRN for WHEEZING, (Reported) Entered as Reported by: MONTSERRAT SALGUERO on 10/02/15 191 Last Action: Reviewed Albuterol Sulfate (Ventolin Hfa) 1 Puff Puff, 2 PUFF IH Q4H PRN for WHEEZING, (Reported) Entered as Reported by: KANDI CENTENO on 04/20/171412 Last Action: Reviewed Alprazolam (Xanax) 1 Mg Tablet, 1 MG PO BID, (Reported) Entered as Reported by: JAVIER MENDENHALL on 06/21/22 013 Last Action: Reviewed Aspirin (Aspirin) 325 Mg Tablet, 325 MG PO DAILY, (Reported) Entered as Reported by: KANDI CENTENO on 02/23/17 1424 Last Action: Reviewed Atorvastatin Calcium (Atorvastatin Calcium) 40 Mg Tablet, 40 MG PO HS, (Reported) Entered as Reported by: JAVIER MENDENHALL on 06/21/22139 Last Action: Reviewed Baclofen (Baclofen) 10 Mg Tablet, 10 MG PO BID PRN for MUSCLE SPASMS, (Reported) Entered as Reported by: KANDI CENTENO on 04/20/17 141 Last Action: Reviewed Bupropion HCl (Bupropion Xl) 300 Mg Tab.er.24h, 300 MG PO DAILY, (Reported) Entered as Reported by: JAVIER MENDENHALL on 06/21/22139 Last Action: Reviewed Cholecalciferol (Vitamin D3) (Vitamin D3) 1,000 Unit Capsule, 5,000 UNIT PO DA HELIO, (Reported) Entered as Reported by: KANDI CENTENO on 07/20/15 1329 Last Action: Reviewed Dapagliflozin Propanediol (Farxiga) 10 Mg Tablet, 10 MG PO DAILY, (Reported) Entered as Reported by: JAVIER MENDENHALL on 06/21/22142 Last Action: Reviewed Estrogens, Conjugated (Premarin) 0.625 Mg Tablet, 0.625 MG PO DAILY, (Reported) Entered as Reported by: JAVIER MENDENHALL on 06/21/22139 Last Action: Reviewed Ezetimibe (Zetia) 10 Mg Tablet, 10 MG PO HS, (Reported) Entered as Reported by: JAVIER MENDENHALL on 06/21/22145 Last Action: Reviewed Ferrous Sulfate (Ferrous Sulfate) 325 Mg Tablet.dr, 650 MG PO DAILY, (Reported) Entered as Reported by: FLAVIA ACEVEDO on 02/19/18 1632 Last Action: Reviewed Fluticasone Propion/Salmeterol (Wixela 500-50 Inhub) 500 Mcg-50 Mcg/Dose Blst.w.dev, 1 PUFF INH BID, (Reported) Entered as Reported by: JAVIER MENDENHALL on 06/21/22147 Last Action: Reviewed Gabapentin (Gabapentin) 800 Mg Tablet, 800 MG PO TID, (Reported) Entered as Reported by: JAVIER MENDENHALL on 06/21/2242 Last Action: Reviewed Glimepiride (Glimepiride) 4 Mg Tablet, 4 MG PO DAILY, (Reported) Entered as Reported by: JAVIER MENDENHALL on 06/21/22139 Last Action: Reviewed Hydrocodone/Acetaminophen (Hydrocodone-Acetamin 7.5-325) 7.5 Mg-325 Mg Tablet, 1-2 TAB PO for PAIN-MODERATE (5-7), (Reported) Entered as Reported by: JAVIER MENDENHALL on 06/21/22147 Last Action: Reviewed Insulin Aspart (Novolog Flexpen) 100 Unit/Ml (3 Ml) Solution, 50 UNITS SQ AC, (Reported) Entered as Reported by: JAVIER MENDENHALL on 06/21/22130 Last Action: Reviewed Insulin Glargine,Hum.rec.anlog (Toujeo Solostar) 300 Unit/Ml (1.5 Ml) Insuln.pen, 160 UNIT SQ DAILY, (Reported) Entered as Reported by: JAVIER MENDENHALL on 06/21/22139 Last Action: Reviewed Metoprolol Tartrate (Metoprolol Tartrate) 25 Mg Tablet, 25 MG PO HS, (Reported) Entered as Reported by: NOVA AVILA on 10/03/15 0522 Last Action: Reviewed Mirtazapine (Mirtazapine) 15 Mg Tablet, 15 MG PO DAILY, (Reported) Entered as Reported by: JAVIER MENDENHALL on 06/21/22139 Last Action: Reviewed Montelukast Sodium (Montelukast Sodium) 10 Mg Tablet, 10 MG PO HS, (Reported) Entered as Reported by: KANDI CENTENO on 04/20/171412 Last Action: Reviewed [place]-3S/Dha/Epa/Fish Oil (Fish Oil [place]-3 Softgel) 1 Each Capsule.dr, 1 CAP PO DAILY, (Reported) Entered as Reported by: KANDI CENTENO on 04/20/171412 Last Action: Reviewed Omeprazole (Omeprazole) 40 Mg Capsule.dr, 40 MG PO DAILY, (Reported) Entered as Reported by: JAVIER MENDENHALL on 06/21/22142 Last Action: Reviewed Paroxetine HCl (Paxil Cr) 25 Mg Tab.er.24h, 25 MG PO BID, (Reported) Entered as Reported by: JAVIER MENDENHALL on 06/21/22144 Last Action: Reviewed Psyllium Husk (Metamucil) 0.52 Gm Capsule, 0.52 GM PO BID, (Reported) Entered as Reported by: NOVA AVILA on 10/02/152 Last Action: Reviewed Semaglutide (Ozempic) 1 Mg/0.75 Ml (4 Mg/3 Ml) Pen.injctr, 1 MG INJ WEEK, (Reported) Entered as Reported by: JAVIER MENDENHALL on 06/21/22139 Last Action: Reviewed Tiotropium Box Elder (Spiriva) 1 Inh Aerp, 1 CAP IH DAILY, (Reported) Entered as Reported by: KANDI CENTENO on 04/20/171412 Last Action: Reviewed Torsemide (Torsemide) 20 Mg Tablet, 20 MG PO DAILY, (Reported) Entered as Reported by: FLAVIA ACEVEDO on 02/19/18 0870 Last Action: Reviewed Discontinued Medications Alprazolam (Alprazolam) 0.5 Mg Tablet, 0.5 MG PO TID, (Reported) Discontinued Reason: No Longer Taking Entered as Reported by: FLAVIA ACEVEDO on 02/19/181544 Last Action: Discontinued Benazepril HCl (Benazepril HCl) 5 Mg Tablet, 5 MG PO DAILY, (Reported) Discontinued Reason: No Longer Taking Entered as Reported by: TRANG HAUSER on 11/24/15 0736 Last Action: Discontinued Cefdinir (Cefdinir) 300 Mg Capsule, 300 MG PO BID Discontinued Reason: No Longer Taking Prescribed by: GUSTAVO LARA on 02/20/18 1027 Last Action: Discontinued Fenofibrate (Fenofibrate) 160 Mg Tablet, 160 MG PO DAILY, (Reported) Discontinued Reason: No Longer Taking Entered as Reported by: FLAVIA ACEVEDO on 02/19/18 1617 Last Action: Discontinued Fluticasone/Salmeterol (Advair 250-50 Diskus) 1 Each Blst.w.dev, 1 PUFF IH BID, (Reported) Discontinued Reason: No Longer Taking Entered as Reported by: KANDI CENTENO on 04/20/17 1413 Last Action: Discontinued Fluticasone/Salmeterol (Advair 500-50 Diskus) 500 Mcg-50 Mcg/Dose Blst.w.dev, 1 PUFF IH BID, (Reported) Discontinued Reason: No Longer Taking Entered as Reported by: JAVIER MENDENHALL on 06/21/22 0129 Last Action: Discontinued Gabapentin (Gabapentin) 300 Mg Capsule, 300 MG PO TID, (Reported) Discontinued Reason: No Longer Taking Entered as Reported by: FLAVIA ACEVEDO on 02/19/181544 Last Action: Discontinued Hydrocodone Bit/Acetaminophen (Lortab 5 Mg Tablet) 1 Each Tablet, 1-2 TAB PO DAILY PRN for PAIN-MODERATE (5-7), (Reported) Discontinued Reason: No Longer Taking Entered as Reported by: FLAVIA ACEVEDO on 02/19/181544 Last Action: Discontinued Insulin Aspart (Novolog Flexpen) 300 Units/3 Ml Solution, 22 UNITS SC AC, (Repo rted) Discontinued Reason: No Longer Taking Entered as Reported by: FLAVIA ACEVEDO on 02/19/181544 Last Action: Discontinued Insulin Detemir (Levemir Flextouch) 100 Unit/1 Ml Insuln.pen, 35 UNITS SC BID, (Reported) Discontinued Reason: No Longer Taking Entered as Reported by: FLAVIA ACEVEDO on 02/19/181544 Last Action: Discontinued Liraglutide (Victoza 2-Martin) 0.6 Mg/0.1 Ml Pen.injctr, 0.6-1.2 MG SC HS, (Reported) Discontinued Reason: No Longer Taking Entered as Reported by: FLAVIA ACEVEDO on 02/19/181544 Last Action: Discontinued Pantoprazole Sodium (Pantoprazole Sodium) 40 Mg Tablet.dr, 40 MG PO DAILY, (Reported) Discontinued Reason: No Longer Taking Entered as Reported by: KANDI CENTENO on 04/20/17 1413 Last Action: Discontinued Paroxetine HCl (Paroxetine HCl) 20 Mg Tablet, 20 MG PO BID, (Reported) Discontinued Reason: No Longer Taking Entered as Reported by: FLAVIA ACEVEDO on 02/19/181544 Last Action: Discontinued Polyethylene Glycol 3350 (Polyethylene Glycol 3350) 255 Gm Powder, 17 GM PO DAILY PRN for CONSTIPATION-2ND LINE, (Reported) Discontinued Reason: No Longer Taking Entered as Reported by: FLAVIA ACEVEDO on 02/19/181544 Last Action: Discontinued Review of Systems Review of Systems Constitutional: no symptoms reported Eyes: See HPI Ears: No Symptoms Reported Nose: no symptoms reported Mouth: no symptoms reported Throat: no symptoms reported Respiratory: no symptoms reported Cardiovascular: no symptoms reported Gastrointestinal: no symptoms reported Musculoskeletal: no symptoms reported Skin: see HPI Neurological: No Symptoms Reported Hematologic/Lymphatic: No Symptoms Reported Immunological/Allergic: no symptoms reported (LAKE ARCHIBALD APRN) Past Jclxsuu-Vqxxtn-Oynqwz Hx Patient Social History Tobacco Use?: No Use of E-Cig and/or Vaping dev: No Substance use?: No Alcohol Use?: No Pt feels they are or have been: No (LAKE ARCHIBALD APRN) Immunizations Up To Date Tetanus Booster (TDap): Unknown PED Vaccines UTD: Yes Influenza Vaccine Up-to-Date: Yes; Up-to-Date First/Initial COVID19 Vaccinat: unkn Second COVID19 Vaccination Stanislaw: unkn (LAKE ARCHIBALD APRN) Seasonal Allergies Seasonal Allergies: Yes (LAKE ARCHIBALD APRN) Past Medical History Surgeries: Yes (C/S X3, INCISIONAL HERNIA, total hysterectomy 2001) Section, Hysterectomy Respiratory: Yes (WEARS 3L/NC PRN) Sleep Apnea, COPD Currently Using CPAP: Yes Cardiac: Yes High Cholesterol, Hypertension Neurological: Yes Neuropathy Reproductive Disorders: No 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 Sexually Transmitted Disease: No HIV/AIDS: No Renal Failure Gastrointestinal: Yes Gastroesophageal Reflux, Diverticulosis Musculoskeletal: Yes Arthritis, Fibromyalgia, Chronic Back Pain Endocrine: Yes Diabetes, Non-Insulin dep HEENT: No Cancer: No Psychosocial: No Integumentary: No Blood Disorders: No Adverse Reaction/Blood Tranf: No (LAKE ARCHIBALD APRN) Family Medical History Arthritis 19 FATHER 19 MOTHER Cardiovascular disease 19 FATHER Cervical cancer 19 MOTHER Diabetes mellitus 19 FATHER Hypertension 19 FATHER 19 MOTHER Physical Exam Vital Signs Vital Signs - First Documented 06/20/22 06/20/22 06/21/22 20:22 23:40 07:26 Temp 36.9 Pulse 99 Resp 18 B/P (MAP) 137/63 (87) Pulse Ox 95 O2 Delivery Room Air O2 Flow Rate 2.00 FiO2 21 (NILA UNGER MD) Height, Weight, BMI Height: 5'0.00" Weight: 229lbs. 0.0oz. [id number]; 44.00 BMI Method:Stated General Appearance: WD/WN, no apparent distress Eyes: left eye lid inflammation Nose: normal inspection Mouth/Throat: normal mouth inspection, pharynx normal Neck: non-tender, full range of motion, supple, normal inspection Cardiovascular: regular rate, rhythm, no edema, no gallop, no JVD, no murmur Respiratory: chest non-tender, lungs clear, normal breath sounds, no respiratory distress, no accessory muscle use Gastrointestinal: normal bowel sounds, non tender, soft, no organomegaly, no pulsatile mass Neurologic/Psychiatric: manager of marketing II-XII nml as tested, no motor/sensory deficits, alert, normal mood/affect, oriented x 3 Large erythematous indurated area noted to the left face extending from the preauricular tissues to the orbit and the anterior posterior dimension and from the left temporal area to the angle of the mandible in the inferior superior dimension; no fluctuance appreciated in the affected area; extraocular movements are intact without provocation of pain; no significant cervical adenopathy noted (LAKE ARCHIBALD APRN) Progress/Results/Core Measures Results/Orders Lab Results Laboratory Tests Test 06/20/22 21:15 06/20/22 22:29 06/20/22 23:22 06/21/22 05:48 Range/Units White Blood Count 14.0 H 4.3-11.0 10^3/uL Red Blood Count 4.72 3.80-5.11 10^6/uL Hemoglobin 13.3 11.5-16.0 g/dL Hematocrit 41 35-52 % Mean Corpuscular Volume 86 80-99 fL Mean Corpuscular Hemoglobin 28 25-34 pg Mean Corpuscular Hemoglobin Concent 33 32-36 g/dL Red Cell Distribution Width 13.7 10.0-14.5 % Platelet Count 366 130-400 10^3/uL Mean Platelet Volume 10.0 9.0-12.2 fL Immature Granulocyte % (Auto) 1 % Neutrophils (%) (Auto) 68 42-75 % Lymphocytes (%) (Auto) 20 12-44 % Monocytes (%) (Auto) 8 0-12 % Eosinophils (%) (Auto) 3 0-10 % Basophils (%) (Auto) 1 0-10 % Neutrophils # (Auto) 9.5 H 1.8-7.8 10^3/uL Lymphocytes # (Auto) 2.7 1.0-4.0 10^3/uL Monocytes # (Auto) 1.1 H 0.0-1.0 10^3/uL Eosinophils # (Auto) 0.5 H 0.0-0.3 10^3/uL Basophils # (Auto) 0.1 0.0-0.1 10^3/uL Immature Granulocyte # (Auto) 0.1 0.0-0.1 10^3/uL Prothrombin Time 13.8 12.2-14.7 SEC INR Comment 1.0 0.8-1.4 Activated Partial Thromboplast Time 26 24-35 SEC Sodium Level 138 135-145 MMOL/L Potassium Level 4.4 3.6-5.0 MMOL/L Chloride Level 100 98-107 MMOL/L Carbon Dioxide Level 23 21-32 MMOL/L Anion Gap 15 H 5-14 MMOL/L Blood Urea Nitrogen 20 H 7-18 MG/DL Creatinine 1.42 H 0.60-1.30 MG/DL Estimat Glomerular Filtration Rate 42 BUN/Creatinine Ratio 14 Glucose Level 239 H 70-105 MG/DL Lactic Acid Level 2.12 *H 1.01 0.50-2.00 MMOL/L Calcium Level 9.2 8.5-10.1 MG/DL Corrected Calcium 9.6 8.5-10.1 MG/DL Total Bilirubin 0.3 0.1-1.0 MG/DL Aspartate Amino Transf (AST/SGOT) 25 5-34 U/L Alanine Aminotransferase (ALT/SGPT) 24 0-55 U/L Alkaline Phosphatase 104 40-136 U/L Total Protein 7.8 6.4-8.2 GM/DL Albumin 3.5 3.2-4.5 GM/DL Urine Color YELLOW Urine Clarity CLEAR Urine pH 6.5 5-9 Urine Specific [place] <=1.005 1.016-1.022 Urine Protein NEGATIVE NEGATIVE Urine Glucose (UA) 3+ H NEGATIVE Urine Ketones NEGATIVE NEGATIVE Urine Nitrite NEGATIVE NEGATIVE Urine Bilirubin NEGATIVE NEGATIVE Urine Urobilinogen 0.2 < = 1.0 MG/DL Urine Leukocyte Esterase NEGATIVE NEGATIVE Urine RBC (Auto) NEGATIVE NEGATIVE Urine RBC NONE /HPF Urine WBC NONE /HPF Urine Squamous Epithelial Cells 0-2 /HPF Urine Crystals NONE /LPF Urine Bacteria NEGATIVE /HPF Urine Casts NONE /LPF Urine Mucus NEGATIVE /LPF Urine Culture Indicated CULTURE PENDING Glucometer 135 H 70-110 MG/DL Test 06/21/22 06:15 Range/Units White Blood Count 11.9 H 4.3-11.0 10^3/uL Red Blood Count 4.54 3.80-5.11 10^6/uL Hemoglobin 12.7 11.5-16.0 g/dL Hematocrit 40 35-52 % Mean Corpuscular Volume 89 80-99 fL Mean Corpuscular Hemoglobin 28 25-34 pg Mean Corpuscular Hemoglobin Concent 32 32-36 g/dL Red Cell Distribution Width 14.1 10.0-14.5 % Platelet Count 327 130-400 10^3/uL Mean Platelet Volume 10.0 9.0-12.2 fL Immature Granulocyte % (Auto) 1 % Neutrophils (%) (Auto) 55 42-75 % Lymphocytes (%) (Auto) 29 12-44 % Monocytes (%) (Auto) 10 0-12 % Eosinophils (%) (Auto) 5 0-10 % Basophils (%) (Auto) 1 0-10 % Neutrophils # (Auto) 6.5 1.8-7.8 10^3/uL Lymphocytes # (Auto) 3.4 1.0-4.0 10^3/uL Monocytes # (Auto) 1.2 H 0.0-1.0 10^3/uL Eosinophils # (Auto) 0.6 H 0.0-0.3 10^3/uL Basophils # (Auto) 0.1 0.0-0.1 10^3/uL Immature Granulocyte # (Auto) 0.1 0.0-0.1 10^3/uL Sodium Level 142 135-145 MMOL/L Potassium Level 3.6 3.6-5.0 MMOL/L Chloride Level 106 98-107 MMOL/L Carbon Dioxide Level 26 21-32 MMOL/L Anion Gap 10 5-14 MMOL/L Blood Urea Nitrogen 17 7-18 MG/DL Creatinine 1.19 0.60-1.30 MG/DL Estimat Glomerular Filtration Rate 52 BUN/Creatinine Ratio 14 Glucose Level 146 H 70-105 MG/DL Calcium Level 8.8 8.5-10.1 MG/DL Corrected Calcium 9.3 8.5-10.1 MG/DL Total Bilirubin 0.2 0.1-1.0 MG/DL Aspartate Amino Transf (AST/SGOT) 22 5-34 U/L Alanine Aminotransferase (ALT/SGPT) 20 0-55 U/L Alkaline Phosphatase 95 40-136 U/L Total Protein 7.3 6.4-8.2 GM/DL Albumin 3.4 3.2-4.5 GM/DL (NILA UNGER MD) Medications Given in ED Current Medications Medications Dose Ordered Sig/Saurav Route Start Time Stop Time Status Last Admin Dose Admin Iohexol 75 ml ONCE ONCE IV 06/20/22 22:00 06/20/22 22:01 DC 06/20/22 21:55 75 ML Piperacillin Sod/ Tazobactam Sod 4.5 gm/Sodium Chloride 100 ml @ 200 mls/hr ONCE ONCE IV 06/20/22 21:00 06/20/22 21:29 DC 06/20/22 22:21 200 MLS/HR Sodium Chloride 100 ml ONCE ONCE IV 06/20/22 22:00 06/20/22 22:01 DC 06/20/22 21:55 80 ML Vancomycin HCl 1000 mg/Sodium Chloride 250 ml @ 250 mls/hr ONCE ONCE IV 06/20/22 21:00 06/20/22 21:59 DC 06/20/22 22:21 250 MLS/HR (NILA UNGER MD) Vital Signs/I&O 06/20/22 06/20/22 06/20/22 06/20/22 20:22 23:27 23:40 23:40 Temp 36.9 36.5 Pulse 99 95 96 99 Resp 18 20 18 B/P (MAP) 137/63 (87) 120/65 147/70 (95) Pulse Ox 95 94 92 95 O2 Delivery Room Air Room Air Room Air FiO2 21 06/21/22 06/21/22 06/21/22 06/21/22 00:20 01:00 01:17 03:49 Temp 36.0 Pulse 95 93 Resp 18 B/P (MAP) 131/60 (83) Pulse Ox 94 93 O2 Delivery Room Air Room Air Room Air 06/21/22 06/21/22 06:55 07:26 Pulse 86 O2 Delivery Nasal Cannula O2 Flow Rate 2.00 (NILA UNGER MD) Blood Pressure Mean: 87 Progress Progress Note : Progress Note Patient has reported history of diabetes and stage III chronic kidney disease. Review of EMR shows historical decreased renal function with increased creatinine. Patient is nontoxic and well-hydrated on exam. Vital signs are overall reassuring. Patient is not hypotensive. Affected area to the left face is markedly swollen, warm, and tender to palpation. Extraocular movements are intact and are not painful. No active drainage appreciated to the area. No ce rvical adenopathy noted. Orders were placed for CBC, CMP, blood cultures, urinalysis, urine culture, coagulation studies, chest x-ray, lactic acid, IV placement, and contrasted CT of the face. Differential diagnosis includes facial cellulitis, facial abscess, orbital cellulitis. CBC notable for leukocytosis of 14,000. CMP notable for hyperglycemia, elevated BUN, and elevated creatinine. Lactic acid is mildly elevated at 2.12. CT of the face reveals marked swelling and stranding suspicious for cellulitis on my wet read. Formal radiology report agrees with no discrete abscess noted. Orders were placed for a liter of lactated Ringer's, 2 mg of morphine for pain control, and Zosyn/Vancomycin. Patient will be admitted to the hospital for further evaluation and treatment. I spoke with Dr. Owen with hospital medicine who kindly agreed to admit the patient. She requested I consult Dr. Woodard with general surgery. I spoke with him and discussed the patient. He agreed to see the patient in consultation t omorrow. A consult order was placed to that effect. Plan of care was discussed with patient and her nephew and verbalization of understanding was given. (LAKE ARCHIBALD APRN) Consults : Consulting Physician: TRANG WOODARD DO Consults Notes Discussed presentation and HPI; agrees to see patient in consultation tomorrow; requests consult order be placed (LAKE ARCHIBALD APRN) Departure Impression Primary Impression: Facial cellulitis Disposition: ADMITTED INPATIENT Condition: Stable Admissions Decision to Admit Reason: Admit from ER (General) Decision to Admit/Date: Jun 20, 2022 Time/Decision to Admit Time: 22:20 (LAKE ARCHIBALD APRN) Departure-Patient Inst. Referrals: MAISHA VILLA APRN (PCP/Family) Primary Care Physician ATTENDING PHYSICIAN NOTE: I was physically present as attending physician in the emergency department during the care of this patient, but I was not directly involved in the decision making or delivery of care for this patient. (NILA UNGER MD) LAKE ARCHIBALD APRN Jun 20, 2022 22:24 NILA UNGER MD Jun 21, 2022 07:49
[2022-06-20] MEDS ORDERED: morphine INJ 10 MG/ML 1ML (SYR OR VIAL) IVP STA (22:28)
[2022-06-20 22:34] LABS: BILIRUBIN,URINE NEGATIVE (NEGATIVE); CLARITY,URINE CLEAR; COLOR,URINE YELLOW; GLUCOSE, URINE (UA) 3+ (NEGATIVE); KETONES,URINE NEGATIVE (NEGATIVE); LEUKOCYTE ESTERASE ,URINE NEGATIVE (NEGATIVE); NITRITE,URINE NEGATIVE (NEGATIVE); PH,URINE 6.5 (5-9); PROTEIN,URINE NEGATIVE (NEGATIVE)
[2022-06-20 22:44] LABS: BACTERIA,URINE NEGATIVE /HPF; SQUAMOUS EPITHELIAL CELL,UR 0-2 /HPF
[2022-06-20] MEDS ORDERED: BISACODYL 10 MG SUPP (DULCOLAX) PR PRN (23:30)
[2022-06-20] MEDS ORDERED: diphenhydrAMINE 50 MG/ML INJ (BENADRYL) IVP PRN (23:30)
[2022-06-20] MEDS ORDERED: diphenhydrAMINE 25 MG TAB (BENADRYL) PO PRN (23:30)
[2022-06-20] MEDS ORDERED: LACTULOSE SYRUP 10GM/15ML (ENULOSE) 30ML UDC PO PRN (23:30)
[2022-06-20] MEDS ORDERED: CALCIUM CARBONATE 500 MG (TUMS) TAB.CHEW PO PRN (23:30)
[2022-06-20] MEDS ORDERED: polyethylene glycoL POWDER 17 GM (MIRALAX) PACK PO PRN (23:30)
[2022-06-20] MEDS ORDERED: NS IV 1000 ML 1,000 ML IV SCH (23:30)
[2022-06-20] MEDS ORDERED: ALPRAZolam 1 MG (XANAX) TAB PO PRN (23:30)
[2022-06-20] MEDS ORDERED: MILK OF MAGNESIA 400 MG/5 ML 30 ML UDC PO PRN (23:30)
[2022-06-20] MEDS ORDERED: VANCOMYCIN INJECTION 0.1 MG in NS (IVPB) 250 ML IV SCH (23:30)
[2022-06-20] MEDS ORDERED: HYDROmorphone 2 MG/ML VIAL (DILAUDID) IV PRN (23:30)
[2022-06-20] MEDS ORDERED: ONDANSETRON 4 MG (ZOFRAN) ORAL DISSOLVE TAB PO PRN (23:30)
[2022-06-20] MEDS ORDERED: ANTACID SUSP 30 ML UDC (MYLANTA) PO PRN (23:30)
[2022-06-20] MEDS ORDERED: MELATONIN 3 MG TABLET PO PRN (23:30)
[2022-06-20 23:40] VITALS: BP_SYST 137; BP_SYST 147; BP_DIAS 63; BP_DIAS 70
[2022-06-20] MEDS ORDERED: RT-ALBUTEROL/IPRATROPIUM 3 ML (DUONEB) VIAL INH PRN (23:45)
[2022-06-21] MEDS ORDERED: NS (IVPB) 250 ML ONE (00:05)
[2022-06-21] MEDS ORDERED: VANCOMYCIN 1000 MG/VIAL ONE (00:05)
[2022-06-21] MEDS: ENOXAPARIN 40 MG/0.4 ML (LOVENOX) SYR SC SCH ×3 (00:13→19:53)
[2022-06-21] MEDS ORDERED: GABA800T10 PO (00:43)
[2022-06-21] MEDS ORDERED: FLUT1DIS27 IH (01:29)
[2022-06-21] MEDS ORDERED: ALPR1TAB2 PO (01:30)
[2022-06-21] MEDS ORDERED: INSU100I14 SQ (01:31)
[2022-06-21] MEDS ORDERED: GLIM4TAB5 PO (01:40)
[2022-06-21] MEDS ORDERED: ESTR0.62 PO (01:40)
[2022-06-21] MEDS ORDERED: SEMA1PEN3 INJ (01:40)
[2022-06-21] MEDS ORDERED: ATOR40TA70 PO (01:40)
[2022-06-21] MEDS ORDERED: INSU300I SQ (01:40)
[2022-06-21] MEDS ORDERED: MIRT-68 PO (01:40)
[2022-06-21] MEDS ORDERED: BUPR300T98 PO (01:40)
[2022-06-21] MEDS ORDERED: DAPA10TA PO (01:43)
[2022-06-21] MEDS ORDERED: OMEP40CA6 PO (01:43)
[2022-06-21] MEDS ORDERED: PARO25TA21 PO (01:45)
[2022-06-21] MEDS ORDERED: EZET10TA17 PO (01:46)
[2022-06-21] MEDS ORDERED: HYDR-3817 PO (01:48)
[2022-06-21] MEDS ORDERED: FLUT1BLS10 INH (01:48)
[2022-06-21 03:49] VITALS: BP 131/60
[2022-06-21] MEDS: PIPERACILLIN SODIUM/TAZOBACTAM 4.5 GM in NS (IVPB) 100 ML IV SCH ×3 (03:52→18:44)
--- NOTE | 2022-06-21 05:10 | History & Physical-Hospitalist ---
History of Present Illness HPI/Chief Complaint CC: Left sided facial cellulitis HPI: This is 62 yr old female with a past medical history of diabetes. She presents to room 408 with left sided facial cellulitis. She reports that it progressively worsened quickly. She was placed on broad spectrum antibiotics due to diabetes. Pt is currently stable. Source: patient Date Seen 06/21/22 Time Seen by a Provider: 09:00 Attending Physician [facility] PCP Admitting Physician: Grazyna Owen DO Attending Physician: Grazyna Owen DO Referring Physician TRANG WOODARD DO Date of Admission Jun 20, 2022 at 22:26 Home Medications & Allergies Home Medications Reviewed patient Home Medication Reconciliation performed by pharmacy medication reconciliations breeder hen service technician and/or nursing. Patients Allergies have been reviewed. Allergies Allergies Coded Allergies duloxetine (Verified Allergy, Unknown, SUICIDAL THOUGHTS, SEVERE DEPRESSION, 07/20/15) rosuvastatin (Verified Adverse Reaction, Mild, 10/02/15) Patient states she "gets very angry" while taking Past Qpmaiqx-Femwdx-Yrdwkf Hx Patient Social History Marrital Status: single Employed/Student: unemployed Tobacco Use?: No Use of E-Cig and/or Vaping dev: No Substance use?: No Alcohol Use?: No Pt feels they are or have been: No Immunizations Up To Date Date of Influenza Vaccine: Apr 20, 2022 First/Initial COVID19 Vaccinat: unkn Second COVID19 Vaccination Stanislaw: unkn Tetanus Booster (TDap): Unknown Hepatitis A: No Hepatitis B: No PED Vaccines UTD: Yes Date of Pneumonia Vaccine: Sep 16, 2015 Seasonal Allergies Seasonal Allergies: Yes Current Status status: No status: No Advance Directives: No Communicates: Verbally Primary Language: Zimbabwean Preferred Spoken Language: Zimbabwean Is interpretation needed?: No Sensory deficits: Vision impairment Past Medical History Surgeries: Section, Hysterectomy Sleep Apnea, COPD Currently Using CPAP: Yes High Cholesterol, Hypertension Neuropathy CO[employer]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 Sexually Transmitted Disease: No HIV/AIDS: No Renal Failure Gastroesophageal Reflux, Diverticulosis Arthritis, Fibromyalgia, Chronic Back Pain Diabetes, Non-Insulin dep Blood Disorders: No Adverse Reaction/Blood Tranf: No Type 2 DM, Fibromyalgia, HTN, Hyperlipidemia, Depression, Anxiety, DALTON, COPD, Asthma, Sx for rotator cuff tear Family Medical History Arthritis 19 FATHER 19 MOTHER Cardiovascular disease 19 FATHER Cervical cancer 19 MOTHER Diabetes mellitus 19 FATHER Hypertension 19 FATHER 19 MOTHER Review of Systems Constitutional: see HPI, malaise, weakness EENTM: other (left face edema) Respiratory: no symptoms reported Cardiovascular: no symptoms reported Gastrointestinal: no symptoms reported Genitourinary: no symptoms reported Musculoskeletal: no symptoms reported Skin: no symptoms reported Psychiatric/Neurological: No Symptoms Reported All Other Systems Reviewed Negative Unless Noted: Yes Physical Exam Physical Exam Vital Signs Vital Signs - First Documented 06/20/22 06/20/22 06/21/22 20:22 23:40 07:26 Temp 36.9 Pulse 99 Resp 18 B/P (MAP) 137/63 (87) Pulse Ox 95 O2 Delivery Room Air O2 Flow Rate 2.00 FiO2 21 Capillary Refill : Height, Weight, BMI Height: 5'0.00" Weight: 229lbs. 0.0oz. [id number]; 47.96 BMI Method:Stated General Appearance: No Apparent Distress, Anxious, Chronically ill, Obese Eyes: Right Eye Normal Inspection, Right Eye PERRL HEENT: PERRL/EOMI, Moist Mucous Membranes, Other (left face with edema and erythema severe) Neck: Full Range of Motion, Normal Inspection, Non Tender Respiratory: Chest Non Tender, Lungs Clear, Normal Breath Sounds, No Accessory Muscle Use, No Respiratory Distress Cardiovascular: Regular Rate, Rhythm, No Edema, No Gallop, No JVD, No Murmur, Normal Peripheral Pulses Gastrointestinal: Normal Bowel Sounds, No Organomegaly, No Pulsatile Mass, Non Tender, Soft Back: Normal Inspection, No CVA Tenderness, No Vertebral Tenderness Extremity: Normal Capillary Refill, Normal Inspection, Normal Range of Motion, Non Tender, No Calf Tenderness, No Pedal Edema Neurologic/Psychiatric: Alert, Oriented x3, No Motor/Sensory Deficits, Normal Mood/Affect Skin: Normal Color, Warm/Dry Lymphatic: No Adenopathy Results Results/Procedures Labs Laboratory Tests 06/20/22 21:15 06/21/22 06:15 Patient resulted labs reviewed. Assessment/Plan Admission Diagnosis Assessment: Left facial cellulitis Sepsis DALTON HTN CAD HTN HLP Obesity DM Plan: IV abx Dr Silver consult HLIVF Pain control Home meds Admission Status: Inpatient Order (span 2 midnights) Reason for Inpatient Admission: severe facial cellulitis Diagnosis/Problems Diagnosis/Problems (1) Facial cellulitis (2) Sepsis GRAZYNA OWEN DO Jun 21, 2022 05:10
[2022-06-21] MEDS: inSUlin ASPART (NovoLOG) 1 UNIT/0.01 ML (CHARGE PER UNIT) SC SCH ×4 (05:53→20:16)
[2022-06-21 06:58] LABS: BASOPHILS # (AUTO) 0.1 10^3/uL (0.0-0.1); BASOPHILS % (AUTO) 1 % (0-10); EOSINOPHILS # (AUTO) 0.6 10^3/uL (0.0-0.3); EOSINOPHILS % (AUTO) 5 % (0-10); HEMATOCRIT 40 % (35-52); HEMOGLOBIN 12.7 g/dL (11.5-16.0); LYMPHOCYTES # (AUTO) 3.4 10^3/uL (1.0-4.0); LYMPHOCYTES % (AUTO) 29 % (12-44); MEAN CORPUSCULAR HEMOGLOBIN 28 pg (25-34); MEAN CORPUSCULAR HGB CONC 32 g/dL (32-36); MEAN CORPUSCULAR VOLUME 89 fL (80-99); MONOCYTES # (AUTO) 1.2 10^3/uL (0.0-1.0); MONOCYTES % (AUTO) 10 % (0-12); NEUTROPHILS # (AUTO) 6.5 10^3/uL (1.8-7.8); NEUTROPHILS % (AUTO) 55 % (42-75); PLATELET COUNT 327 10^3/uL (130-400); WHITE BLOOD COUNT 11.9 10^3/uL (4.3-11.0)
--- NOTE | 2022-06-21 07:09 | Diagnostic Imaging Report ---
EXAMINATION: Chest 1 view HISTORY: Sepsis. COMPARISON: 02/20/2018. FINDINGS: The lung volumes are normal. No focal consolidation is seen. No large pleural effusion or pneumothorax is seen. The cardiomediastinal silhouette is normal in size and contour. There is calcified aortic atherosclerotic plaque. No acute osseous abnormality is seen. IMPRESSION: 1. No acute pleuroparenchymal process. Dictated by: Dictated on workstation # [id number]
[2022-06-21 07:14] LABS: ALBUMIN 3.4 GM/DL (3.2-4.5); BILIRUBIN,TOTAL 0.2 MG/DL (0.1-1.0); CALCIUM 8.8 MG/DL (8.5-10.1); CREATININE SERUM 1.19 MG/DL (0.60-1.30); POTASSIUM 3.6 MMOL/L (3.6-5.0); TOTAL PROTEIN 7.3 GM/DL (6.4-8.2)
[2022-06-21 08:06] VITALS: BP 165/83
--- NOTE | 2022-06-21 08:15 | Consultation - Surgery ---
AMBER BELTRE 06/21/22 0815: History of Present Illness History of Present Illness Patient Consulted On(tyrel/time) 06/21/22 08:10 Date Seen by Provider: Jun 21, 2022 Time Seen by Provider: 07:45 Reason for Visit: Facial cellulitis History of Present Illness Ms. Garcia is a 62 year old male with a past medical history signficant for CKD III, COPD, T2DM, HTN, HLD, and GERD who presented to the ED yesterday with facial swelling and cellulitis. On JUN 02 patient reported she noticed some swelling on the left side of her face with accompanying pain and discomfort. The swelling and pain progressively got worse and worse. She reached out to telehealth on JUL 04 where she was prescribed doxycycline which she reports helped a little bit. She saw her primary care provider yesterday who sent her to the ED. She denies any trauma or any preceding event to cause the swelling in the area. She describes the pain as throbbing and constant. Ibuprofen, doxycycline, and tylenol helped the pain slightly. Hydrocodone did not help the pain. 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 She said it was at its worst on Monday, JUL 04. She does endorse pain with eye movement. She had associated fever and chills with Tmax reported of 102. Since getting to the hospital she thinks the redness and swelling has improved but it is still painful and present. Her pain is currently a 4/10. Allergies and Home Medications Allergies Coded Allergies: duloxetine (Verified Allergy, Unknown, SUICIDAL THOUGHTS, SEVERE DEPRESSION, 07/20/15) rosuvastatin (Verified Adverse Reaction, Mild, 10/02/15) Patient states she "gets very angry" while taking Patient Home Medication List Albuterol Sulfate (Albuterol Sulfate) 2.5 Mg/3 Ml (0.083 %) Vial.neb, 2.5 MG NEB Q6H PRN for SHORTNESS OF BREATH, (Reported) Entered as Reported by: MONTSERRAT SALGUERO on 10/02/151912 Last Action: Reviewed Albuterol Sulfate (Ventolin Hfa) 90 Mcg Hfa.aer.ad, 2 PUFF IH Q4H PRN for SHORTNESS OF BREATH, (Reported) Entered as Reported by: KANDI CENTENO on 04/20/17 1413 Last Action: Reviewed Alprazolam (Alprazolam) 0.5 Mg Tablet, 1 MG PO BID, (Reported) Entered as Reported by: SOWMYA VELA on 06/21/221255 Last Action: Reviewed Atorvastatin Calcium (Atorvastatin Calcium) 40 Mg Tablet, 40 MG PO HS, (Reported) Entered as Reported by: JAVIER MENDENHALL on 06/21/22139 Last Action: Reviewed Bupropion HCl (Bupropion Xl) 300 Mg Tab.er.24h, 300 MG PO DAILY, (Reported) Entered as Reported by: JAVIER MENDENHALL on 06/21/22139 Last Action: Reviewed Cetirizine HCl (Cetirizine HCl) 10 Mg Tablet, 10 MG PO HS, (Reported) Entered as Reported by: SOWMYA VELA on 06/21/221255 Last Action: Reviewed Cholecalciferol (Vitamin D3) (Vitamin D3) 50 Mcg (2000 Unit) Tablet, 50 MCG PO DAILY, (Reported) Entered as Reported by: SOWMYA VELA on 06/21/221255 Last Action: Reviewed Cyclobenzaprine HCl (Cyclobenzaprine HCl) 10 Mg Tablet, 10 MG PO Q8H PRN for MUSCLE SPASMS, (Reported) Entered as Reported by: OSWMYA VELA on 06/21/221255 Last Action: Reviewed Dapagliflozin Propanediol (Farxiga) 10 Mg Tablet, 10 MG PO DAILY, (Reported) Entered as Reported by: JAVIER MENDENHALL on 06/21/22142 Last Action: Reviewed Doxycycline Hyclate (Doxycycline Hyclate) 100 Mg Tablet, 100 MG PO BID, (Reported) Entered as Reported by: SOWMYA VELA on 06/21/221255 Last Action: Reviewed Estrogens, Conjugated (Premarin) 0.625 Mg Tablet, 0.625 MG PO DAILY, (Reported) Entered as Reported by: JAVIER MENDENHALL on 06/21/22139 Last Action: Reviewed Ezetimibe (Ezetimibe) 10 Mg Tablet, 10 MG PO HS, (Reported) Entered as Reported by: SOWMYA VELA on 06/21/221255 Last Action: Reviewed Ferrous Sulfate (Slow Release Iron) 142 Mg (45 Mg Iron) Tablet.er, 142 MG PO DAILY, (Reported) Entered as Reported by: SOWMYA VELA on 06/21/221255 Last Action: Reviewed Fluticasone Propion/Salmeterol (Wixela 500-50 Inhub) 500 Mcg-50 Mcg/Dose Blst.w.dev, 1 PUFF INH BID, (Reported) Entered as Reported by: JAVIER MENDENHALL on 06/21/22147 Last Action: Reviewed Gabapentin (Gabapentin) 800 Mg Tablet, 800 MG PO TID, (Reported) Entered as Reported by: JAVIER MENDENHALL on 06/21/2242 Last Action: Reviewed Glimepiride (Glimepiride) 4 Mg Tablet, 4 MG PO DAILY, (Reported) Entered as Reported by: JAVIER MENDENHALL on 06/21/22139 Last Action: Reviewed Hydrocodone/Acetaminophen (Hydrocodone-Acetamin 7.5-325) 7.5 Mg-325 Mg Tablet, 1-2 EA PO Q8H PRN for PAIN-MODERATE (5-7), (Reported) Entered as Reported by: JAVIER MENDENHALL on 06/21/22147 Last Action: Reviewed Insulin Glargine,Hum.rec.anlog (Toujeo Max Solostar) 300 Unit/Ml (3 Ml) Insuln.pen, 150 UNITS SC DAILY, (Reported) Entered as Reported by: SOWMYA VELA on 06/21/221255 Last Action: Reviewed Insulin Lispro (Insulin Lispro Kwikpen U-100) 100 Unit/Ml Insuln.pen, UNITS SC AC, (Reported) Entered as Reported by: SOWMYA VELA on 06/21/221255 Last Action: Reviewed Metoprolol Tartrate (Metoprolol Tartrate) 25 Mg Tablet, 25 MG PO HS, (Reported) Entered as Reported by: SOWMYA VELA on 06/21/22 130 Last Action: Reviewed Milk Thistle (Milk Thistle) 175 Mg Tablet, 175 MG PO DAILY, (Reported) Entered as Reported by: SOWMYA VELA on 06/21/221255 Last Action: Reviewed Mirtazapine (Mirtazapine) 15 Mg Tablet, 15 MG PO HS, (Reported) Entered as Reported by: JAVIER MENDENHALL on 06/21/22139 Last Action: Reviewed Montelukast Sodium (Montelukast Sodium) 10 Mg Tablet, 10 MG PO HS, (Reported) Entered as Reported by: KANDI CENTENO on 04/20/171412 Last Action: Reviewed Multivits-Min/Iron/FA/Lutein (Centrum Silver Women Tablet) 8 Mg Iron-400 Mcg-300 Mcg Tablet, 1 EACH PO DAILY, (Reported) Entered as Reported by: SOWMYA VELA on 06/21/221255 Last Action: Reviewed [place]-3 Fatty Acids ([place]-3) 1,000 Mg Capsule, 2,000 MG PO DAILY, (Reported) Entered as Reported by: SOWMYA VELA on 06/21/221255 Last Action: Reviewed Ondansetron (Ondansetron Odt) 4 Mg Tab.rapdis, 4 MG PO Q8H PRN for NAUSEA/VOMITING-1ST LINE, (Reported) Entered as Reported by: SOWMYA VELA on 06/21/221255 Last Action: Reviewed Pantoprazole Sodium (Pantoprazole Sodium) 40 Mg Tablet.dr, 40 MG PO DAILY, (Reported) Entered as Reported by: SOWMYA VELA on 06/21/221255 Last Action: Reviewed Paroxetine HCl (Paxil Cr) 25 Mg Tab.er.24h, 25 MG PO BID, (Reported) Entered as Reported by: JAVIER MENDENHALL on 06/21/22144 Last Action: Reviewed Psyllium Husk (Metamucil) 0.4 Gram Capsule, 2 EA PO TID, (Reported) Entered as Reported by: SOWMYA VELA on 06/21/221255 Last Action: Reviewed Semaglutide (Ozempic) 1 Mg/0.75 Ml (4 Mg/3 Ml) Pen.injctr, 1 MG INJ SUN, (Reported) Entered as Reported by: JAVIER MENDENHALL on 06/21/22139 Last Action: Reviewed Tiotropium Jackson (Spiriva) 18 Mcg Aerp, 1 EA IH DAILY, (Reported) Entered as Reported by: KANDI CENTENO on 04/20/171412 Last Action: Reviewed Torsemide (Torsemide) 20 Mg Tablet, 20 MG PO DAILY, (Reported) Entered as Reported by: FLAVIA ACEVEDO on 02/19/18 1367 Last Action: Reviewed Vitamin A (Vitamin A) 2,400 Mcg Capsule, 2,400 MCG PO DAILY, (Reported) Entered as Reported by: SOWMYA VELA on 06/21/22 1256 Last Action: Reviewed Vitamin E Mixed (Vitamin E) 1,000 Unit Capsule, 1,000 UNIT PO DAILY, (Reported) Entered as Reported by: SOWMYA VELA on 06/21/22 1256 Last Action: Reviewed Discontinued Medications Alprazolam (Alprazolam) 0.5 Mg Tablet, 0.5 MG PO TID, (Reported) Discontinued Reason: No Longer Taking Entered as Reported by: FLAVIA ACEVEDO on 02/19/18 1545 Last Action: Discontinued Alprazolam (Xanax) 1 Mg Tablet, 1 MG PO BID, (Reported) Discontinued Reason: No Longer Taking Entered as Reported by: JAVIER MENDENHALL on 06/21/22 0130 Last Action: Discontinued Aspirin (Aspirin) 325 Mg Tablet, 325 MG PO DAILY, (Reported) Discontinued Reason: No Longer Taking Entered as Reported by: KANDI CENTENO on 02/23/17 1424 Last Action: Discontinued Baclofen (Baclofen) 10 Mg Tablet, 10 MG PO BID PRN for MUSCLE SPASMS, (Reported) Discontinued Reason: No Longer Taking Entered as Reported by: KANDI CENTENO on 04/20/17 1413 Last Action: Discontinued Benazepril HCl (Benazepril HCl) 5 Mg Tablet, 5 MG PO DAILY, (Reported) Discontinued Reason: No Longer Taking Entered as Reported by: TRANG HAUSER on 11/24/15 0736 Last Action: Discontinued Cefdinir (Cefdinir) 300 Mg Capsule, 300 MG PO BID Discontinued Reason: No Longer Taking Prescribed by: GUSTAVO LARA on 02/20/18 1027 Last Action: Discontinued Cholecalciferol (Vitamin D3) (Vitamin D3) 1,000 Unit Capsule, 5,000 UNIT PO DAILY, (Reported) Discontinued Reason: No Longer Taking Entered as Reported by: KANDI CENTENO on 07/20/15 1329 Last Action: Discontinued Ezetimibe (Zetia) 10 Mg Tablet, 10 MG PO HS, (Reported) Discontinued Reason: Duplicate Order Entered as Reported by: JAVIER MENDENHALL on 06/21/22 0146 Last Action: Discontinued Fenofibrate (Fenofibrate) 160 Mg Tablet, 160 MG PO DAILY, (Reported) Discontinued Reason: No Longer Taking Entered as Reported by: FLAVIA ACEVEDO on 02/19/18 1617 Last Action: Discontinued Ferrous Sulfate (Ferrous Sulfate) 325 Mg Tablet.dr, 650 MG PO DAILY, (Reported) Discontinued Reason: Prescription changed Entered as Reported by: FLAVIA ACEVEDO on 02/19/18 1632 Last Action: Reviewed Fluticasone/Salmeterol (Advair 250-50 Diskus) 1 Each Blst.w.dev, 1 PUFF IH BID, (Reported) Discontinued Reason: No Longer Taking Entered as Reported by: KANDI CENTENO on 04/20/17 1413 Last Action: Discontinued Fluticasone/Salmeterol (Advair 500-50 Diskus) 500 Mcg-50 Mcg/Dose Blst.w.dev, 1 PUFF IH BID, (Reported) Discontinued Reason: No Longer Taking Entered as Reported by: JAVIER MENDENHALL on 06/21/22 0129 Last Action: Discontinued Gabapentin (Gabapentin) 300 Mg Capsule, 300 MG PO TID, (Reported) Discontinued Reason: No Longer Taking Entered as Reported by: FLAVIA ACEVEDO on 02/19/181544 Last Action: Discontinued Hydrocodone Bit/Acetaminophen (Lortab 5 Mg Tablet) 1 Each Tablet, 1-2 TAB PO DAILY PRN for PAIN-MODERATE (5-7), (Reported) Discontinued Reason: No Longer Taking Entered as Reported by: FLAVIA ACEVEDO on 02/19/181544 Last Action: Discontinued Insulin Aspart (Novolog Flexpen) 300 Units/3 Ml Solution, 22 UNITS SC AC, (Reported) Discontinued Reason: No Longer Taking Entered as Reported by: FLAVIA ACEVEDO on 02/19/181544 Last Action: Discontinued Insulin Detemir (Levemir Flextouch) 100 Unit/1 Ml Insuln.pen, 35 UNITS SC BID, (Reported) Discontinued Reason: No Longer Taking Entered as Reported by: FLAVIA ACEVEDO on 02/19/181544 Last Action: Discontinued Insulin Glargine,Hum.rec.anlog (Toujeo Solostar) 300 Unit/Ml (1.5 Ml) Insuln.pe n, 160 UNIT SQ DAILY, (Reported) Discontinued Reason: Duplicate Order Entered as Reported by: JAVIER MENDENHALL on 06/21/22139 Last Action: Discontinued Liraglutide (Victoza 2-Martin) 0.6 Mg/0.1 Ml Pen.injctr, 0.6-1.2 MG SC HS, (Reported) Discontinued Reason: No Longer Taking Entered as Reported by: FLAVIA ACEVEDO on 02/19/181544 Last Action: Discontinued Metoprolol Tartrate (Metoprolol Tartrate) 25 Mg Tablet, 25 MG PO HS, (Reported) Discontinued Reason: Duplicate Order Entered as Reported by: NOVA AVILA on 10/03/15 2747 Last Action: Discontinued [place]-3S/Dha/Epa/Fish Oil (Fish Oil [place]-3 Softgel) 1 Each Capsule.dr, 1 CAP PO DAILY, (Reported) Discontinued Reason: Duplicate Order Entered as Reported by: KANDI CENTENO on 04/20/171412 Last Action: Discontinued Omeprazole (Omeprazole) 40 Mg Capsule.dr, 40 MG PO DAILY, (Reported) Discontinued Reason: No Longer Taking Entered as Reported by: JAVIER MENDENHALL on 06/21/22142 Last Action: Discontinued Pantoprazole Sodium (Pantoprazole Sodium) 40 Mg Tablet.dr, 40 MG PO DAILY, (Reported) Discontinued Reason: No Longer Taking Entered as Reported by: KANDI CENTENO on 04/20/171412 Last Action: Discontinued Paroxetine HCl (Paroxetine HCl) 20 Mg Tablet, 20 MG PO BID, (Reported) Discontinued Reason: No Longer Taking Entered as Reported by: FLAVIA ACEVEDO on 02/19/181544 Last Action: Discontinued Polyethylene Glycol 3350 (Polyethylene Glycol 3350) 255 Gm Powder, 17 GM PO DAILY PRN for CONSTIPATION-2ND LINE, (Reported) Discontinued Reason: No Longer Taking Entered as Reported by: FLAVIA ACEVEDO on 02/19/181544 Last Action: Discontinued Psyllium Husk (Metamucil) 0.52 Gm Capsule, 0.52 GM PO BID, (Reported) Discontinued Reason: Duplicate Order Entered as Reported by: NOVA AVILA on 10/02/15 7420 Last Action: Discontinued Past Myibftz-Dbenah-Kgyvpe Hx Patient Social History Smoking Status: Former Smoker Former Smoker, Quit: Mar 14, 2017 Type Used: Cigarettes (Quit 3.5 years ago. 0.5 PPD for 20 years.) Recent Hopitalizations: No Alcohol Use?: No Have you traveled recently?: No Immunizations Up To Date Tetanus Booster (TDap): Unknown PED Vaccines UTD: Yes Date of Pneumonia Vaccine: Sep 16, 2015 Date of Influenza Vaccine: Apr 20, 2022 Seasonal Allergies Seasonal Allergies: Yes Surgeries History of Surgeries: Yes (C/S X3, INCISIONAL HERNIA, total hysterectomy 2001) Surgeries: Section, Hysterectomy, Orthopedic (L rotator cuff) Respiratory History of Respiratory Disorde: Yes (WEARS 3L/NC PRN) Respiratory Disorders: Asthma, Sleep Apnea, COPD Cardiovascular History of Cardiac Disorders: Yes Cardiac Disorders: High Cholesterol, Hypertension Neurological History of Neurological Disord: Yes Neurological Disorders: Neuropathy Reproductive System Hx Reproductive Disorders: No Sexually Transmitted Disease: No HIV/AIDS: No [employer] History: Hysterectomy Genitourinary Genitourinary Disorders: Renal Failure Gastrointestinal History of Gastrointestinal Di: Yes Gastrointestinal Disorders: Gastroesophageal Reflux, Diverticulosis Musculoskeletal History of Musculoskeletal Dis: Yes Musculoskeletal Disorders: Arthritis, Fibromyalgia, Chronic Back Pain Endocrine History of Endocrine Disorders: Yes Endocrine Disorders: Diabetes, Non-Insulin dep HEENT History of HEENT Disorders: No Cancer History of Cancer: No Psychosocial History of Psychiatric Problem: No Integumentary History of Skin or Integumenta: No Blood Transfusions History of Blood Disorders: No Adverse Reaction to a Blood Tr: No Family Medical History Significant Family History: Cancer (Cervical in mother), CAD Over 55 Years Old (Father), Diabetes (Mother and Father), Hypertension (Mother and Father) Review of Systems-General Constitutional: chills, fever EENTM: ear pain, blurred vision, eye pain, mouth pain Respiratory: No cough, No dyspnea on exertion, No short of breath Cardiovascular: No chest pain, No palpitations Gastrointestinal: No abdominal pain, No nausea, No vomiting Skin: change in color, other (Cellulitis left face) Psychiatric/Neurological: Anxiety, Depressed Physical Exam-General Problems Physical Exam Vital Signs Vital Signs - First Documented 06/20/22 06/20/22 06/21/22 20:22 23:40 07:26 Temp 36.9 Pulse 99 Resp 18 B/P (MAP) 137/63 (87) Pulse Ox 95 O2 Delivery Room Air O2 Flow Rate 2.00 FiO2 21 Capillary Refill : General Appearance: WD/WN, no apparent distress, obese HEENT: PERRL/EOMI; No pale conjunctivae (R), No pale conjunctivae (L); other (Large red, swollen, indurated area on left face extending from corner of left eye to ear with radiation down to left mandible. Swelling inferior to left eye. Pain with eye movement that has improved but is still present.) Neck: supple, tender lateral (Tender inferior to mandible on left) Respiratory: chest non-tender, no respiratory distress, no accessory muscle use, decreased breath sounds (Distant but clear) Cardiovascular: normal peripheral pulses, regular rate, rhythm Peripheral Pulses: 2+ Radial Pulses (R), 2+ Radial Pulses (L) Gastrointestinal: non tender, soft Extremities: non-tender, normal inspection Neurologic/Psychiatric: alert, normal mood/affect, oriented x 3 Skin: warm/dry, other (As previously mentioned in HEENT, cellulitis of left face) Lymphatic: other (Left inframandibular adenopathy) Data Review Labs Laboratory Tests 06/20/22 21:15: White Blood Count 14.0H, Red Blood Count 4.72, Hemoglobin 13.3, Hematocrit 41, Mean Corpuscular Volume 86, Mean Corpuscular Hemoglobin 28, Mean Corpuscular Hemoglobin Concent 33, Red Cell Distribution Width 13.7, Platelet Count 366, Mean Platelet Volume 10.0, Immature Granulocyte % (Auto) 1, Neutrophils (%) (Auto) 68, Lymphocytes (%) (Auto) 20, Monocytes (%) (Auto) 8, Eosinophils (%) (Auto) 3, Basophils (%) (Auto) 1, Neutrophils # (Auto) 9.5H, Lymphocytes # (Auto) 2.7, Monocytes # (Auto) 1.1H, Eosinophils # (Auto) 0.5H, Basophils # (Auto) 0.1, Immature Granulocyte # (Auto) 0.1, Prothrombin Time 13.8, INR Co mment 1.0, Activated Partial Thromboplast Time 26, Sodium Level 138, Potassium Level 4.4, Chloride Level 100, Carbon Dioxide Level 23, Anion Gap 15H, Blood Urea Nitrogen 20H, Creatinine 1.42H, Estimat Glomerular Filtration Rate 42, BUN/Creatinine Ratio 14, Glucose Level 239H, Lactic Acid Level 2.12*H, Calcium Level 9.2, Corrected Calcium 9.6, Total Bilirubin 0.3, Aspartate Amino Transf (AST/SGOT) 25, Alanine Aminotransferase (ALT/SGPT) 24, Alkaline Phosphatase 104, Total Protein 7.8, Albumin 3.5 06/20/22 22:29: Urine Color YELLOW, Urine Clarity CLEAR, Urine pH 6.5, Urine Specific [place] <=1.005, Urine Protein NEGATIVE, Urine Glucose (UA) 3+H, Urine Ketones NEGATIVE, Urine Nitrite NEGATIVE, Urine Bilirubin NEGATIVE, Urine Urobilinogen 0.2, Urine Leukocyte Esterase NEGATIVE, Urine RBC (Auto) NEGATIVE, Urine RBC NONE, Urine WBC NONE, Urine Squamous Epithelial Cells 0-2, Urine Crystals NONE, Urine Bacteria NEGATIVE, Urine Casts NONE, Urine Mucus NEGATIVE, Urine Culture Indicated CULTURE PENDING 06/20/22 23:22: Lactic Acid Level 1.01 06/21/22 05:48: Glucometer 135H 06/21/22 06:15: White Blood Count 11.9H, Red Blood Count 4.54, Hemoglobin 12.7, Hematocrit 40, Mean Corpuscular Volume 89, Mean Corpuscular Hemoglobin 28, Mean Corpuscular Hemoglobin Concent 32, Red Cell Distribution Width 14.1, Platelet Count 327, Mean Platelet Volume 10.0, Immature Granulocyte % (Auto) 1, Neutrophils (%) (Auto) 55, Lymphocytes (%) (Auto) 29, Monocytes (%) (Auto) 10, Eosinophils (%) (Auto) 5, Basophils (%) (Auto) 1, Neutrophils # (Auto) 6.5, Lymphocytes # (Auto) 3.4, Monocytes # (Auto) 1.2H, Eosinophils # (Auto) 0.6H, Basophils # (Auto) 0.1, Immature Granulocyte # (Auto) 0.1, Sodium Level 142, Potassium Level 3.6, Chloride Level 106, Carbon Dioxide Level 26, Anion Gap 10, Blood Urea Nitrogen 17, Creatinine 1.19, Estimat Glomerular Filtration Rate 52, BUN/Creatinine Ratio 14, Glucose Level 146H, Calcium Level 8.8, Corrected Calcium 9.3, Total Bilirubin 0.2, Aspartate Amino Transf (AST/SGOT) 22, Alanine Aminotransferase (ALT/SGPT) 20, Alkaline Phosphatase 95, Total Protein 7.3, Albumin 3.4 Radiology Date of Exam:06/20/22 CT MAXILLOFACIAL W PROCEDURE: CT maxillofacial with contrast. TECHNIQUE: After intravenous administration of contrast, axial images were obtained through the face and reformatted into coronal and sagittal planes. Auto Exposure Controls were utilized during the CT exam to meet ALARA standards for radiation dose reduction. DATE: June 20, 2022. INDICATION: 62-year-old female, burning sensation of the left face. Evaluation for cellulitis or abscess. COMPARISON: None. FINDINGS: There is prominent inflammatory stranding in the subcutaneous tissues in the region of the left cheek and extending posteriorly and laterally. There is no identified focal fluid collection or abscess. There is also soft tissue swelling superficial to the left orbit. The globes are grossly intact. There is no retro-orbital fluid collection or altered attenuation. There are probable intraparotid lymph nodes on the left. There is no air-fluid level in the paranasal sinuses. The paranasal sinuses are well-aerated. The mastoid air cells and middle ears are well-aerated. IMPRESSION: 1. Prominent subcutaneous edema in the region of the left cheek extending laterally and posteriorly and also superficial to the left orbit without identified focal fluid collection or abscess. This may reflect cellulitis in the appropriate clinical scenario. 2. No abnormal postseptal attenuation. Dictated on workstation # [id number] Dict: 06/20/222157 Trans: 06/20/222202 [facility] [id number] Interpreted by: LUCY CUMMINGS MD Electronically signed by: Assessment/Plan Assessment/Plan Assessment/Plan Facial cellulitis Preseptal vs. orbital vs. facial Unknown etiology, possible insect bite Pain with eye movement raise suspicion for orbital but no proptosis present Per radiology reprot: Prominent subcutaneous edema in the region of the left cheek extending laterally and posteriorly and also superficial to the left orbit without identified focal fluid collection or abscess. Leukocytosis WBC 14 to 11.9 CKD III COPD Diabetes As it stands currently I do not think any surgical indication or I&D is warranted. Patient does have quite severe facial cellulitis however with abx she seems to be improving. With the close proximity to her eye and pain with eye movements I think there needs to be a low threshold for sending her to ENT/optho if her condition worsens or does not improve with medical management. Continue IV pip/tazo and vancomycin Enoxaparin DVT ppx TRANG WOODARD DO 06/21/22 2477: History of Present Illness History of Present Illness Time Seen by Provider: 11:09 History of Present Illness Surgery asked to consult regarding facial cellulitis. When I saw pt she stated she was doing better, but the "puffiness" under her eye was a little worse than it had been. She states it is better for sure because now she can open her left eye and see out of it. Allergies and Home Medications Allergies Coded Allergies: duloxetine (Verified Allergy, Unknown, SUICIDAL THOUGHTS, SEVERE DEPRESSION, 07/20/15) rosuvastatin (Verified Adverse Reaction, Mild, 10/02/15) Patient states she "gets very angry" while taking Patient Home Medication List Home Medication List Reviewed: Yes Albuterol Sulfate (Albuterol Sulfate) 2.5 Mg/3 Ml (0.083 %) Vial.neb, 2.5 MG NEB Q6H PRN for SHORTNESS OF BREATH, (Reported) Entered as Reported by: MONTSERRAT SALGUERO on 10/02/151912 Last Action: Reviewed Albuterol Sulfate (Ventolin Hfa) 90 Mcg Hfa.aer.ad, 2 PUFF IH Q4H PRN for SHORTNESS OF BREATH, (Reported) Entered as Reported by: KANDI CENTENO on 04/20/17 1413 Last Action: Reviewed Alprazolam (Alprazolam) 0.5 Mg Tablet, 1 MG PO BID, (Reported) Entered as Reported by: SOWMYA VELA on 06/21/221255 Last Action: Reviewed Atorvastatin Calcium (Atorvastatin Calcium) 40 Mg Tablet, 40 MG PO HS, (Reported) Entered as Reported by: JAVIER MENDENHALL on 06/21/22139 Last Action: Reviewed Bupropion HCl (Bupropion Xl) 300 Mg Tab.er.24h, 300 MG PO DAILY, (Reported) Entered as Reported by: JAVIER MENDENHALL on 06/21/22139 Last Action: Reviewed Cetirizine HCl (Cetirizine HCl) 10 Mg Tablet, 10 MG PO HS, (Reported) Entered as Reported by: SOWMYA VELA on 06/21/221255 Last Action: Reviewed Cholecalciferol (Vitamin D3) (Vitamin D3) 50 Mcg (2000 Unit) Tablet, 50 MCG PO DAILY, (Reported) Entered as Reported by: SOWMYA VELA on 06/21/221255 Last Action: Reviewed Cyclobenzaprine HCl (Cyclobenzaprine HCl) 10 Mg Tablet, 10 MG PO Q8H PRN for MUSCLE SPASMS, (Reported) Entered as Reported by: SOWMYA VELA on 06/21/221255 Last Action: Reviewed Dapagliflozin Propanediol (Farxiga) 10 Mg Tablet, 10 MG PO DAILY, (Reported) Entered as Reported by: JAVIER MENDENHALL on 06/21/22142 Last Action: Reviewed Doxycycline Hyclate (Doxycycline Hyclate) 100 Mg Tablet, 100 MG PO BID, (Reported) Entered as Reported by: SOWMYA VELA on 06/21/221255 Last Action: Reviewed Estrogens, Conjugated (Premarin) 0.625 Mg Tablet, 0.625 MG PO DAILY, (Reported) Entered as Reported by: JAVIER MENDENHALL on 06/21/22139 Last Action: Reviewed Ezetimibe (Ezetimibe) 10 Mg Tablet, 10 MG PO HS, (Reported) Entered as Reported by: SOWMYA VELA on 06/21/221255 Last Action: Reviewed Ferrous Sulfate (Slow Release Iron) 142 Mg (45 Mg Iron) Tablet.er, 142 MG PO DAILY, (Reported) Entered as Reported by: SOWMYA VELA on 06/21/221255 Last Action: Reviewed Fluticasone Propion/Salmeterol (Wixela 500-50 Inhub) 500 Mcg-50 Mcg/Dose Blst.w.dev, 1 PUFF INH BID, (Reported) Entered as Reported by: JAVIER MENDENHALL on 06/21/22147 Last Action: Reviewed Gabapentin (Gabapentin) 800 Mg Tablet, 800 MG PO TID, (Reported) Entered as Reported by: JAVIER MENDENHALL on 06/21/2242 Last Action: Reviewed Glimepiride (Glimepiride) 4 Mg Tablet, 4 MG PO DAILY, (Reported) Entered as Reported by: JAVIER MENDENHALL on 06/21/22139 Last Action: Reviewed Hydrocodone/Acetaminophen (Hydrocodone-Acetamin 7.5-325) 7.5 Mg-325 Mg Tablet, 1-2 EA PO Q8H PRN for PAIN-MODERATE (5-7), (Reported) Entered as Reported by: JAVIER MENDENHALL on 06/21/22147 Last Action: Reviewed Insulin Glargine,Hum.rec.anlog (Toujeo Max Solostar) 300 Unit/Ml (3 Ml) Insuln.pen, 150 UNITS SC DAILY, (Reported) Entered as Reported by: SOWMYA VELA on 06/21/221255 Last Action: Reviewed Insulin Lispro (Insulin Lispro Kwikpen U-100) 100 Unit/Ml Insuln.pen, UNITS SC AC, (Reported) Entered as Reported by: SOWMYA VELA on 06/21/221255 Last Action: Reviewed Metoprolol Tartrate (Metoprolol Tartrate) 25 Mg Tablet, 25 MG PO HS, (Reported) Entered as Reported by: SOWMYA VELA on 06/21/22 130 Last Action: Reviewed Milk Thistle (Milk Thistle) 175 Mg Tablet, 175 MG PO DAILY, (Reported) Entered as Reported by: SOWMYA VELA on 06/21/221255 Last Action: Reviewed Mirtazapine (Mirtazapine) 15 Mg Tablet, 15 MG PO HS, (Reported) Entered as Reported by: JAVIER MENDENHALL on 06/21/22 0140 Last Action: Reviewed Montelukast Sodium (Montelukast Sodium) 10 Mg Tablet, 10 MG PO HS, (Reported) Entered as Reported by: KANDI CENTENO on 04/20/17 1413 Last Action: Reviewed Multivits-Min/Iron/FA/Lutein (Centrum Silver Women Tablet) 8 Mg Iron-400 Mcg-300 Mcg Tablet, 1 EACH PO DAILY, (Reported) Entered as Reported by: SOWMYA VELA on 06/21/221255 Last Action: Reviewed [place]-3 Fatty Acids ([place]-3) 1,000 Mg Capsule, 2,000 MG PO DAILY, (Reported) Entered as Reported by: SOWMYA VELA on 06/21/221255 Last Action: Reviewed Ondansetron (Ondansetron Odt) 4 Mg Tab.rapdis, 4 MG PO Q8H PRN for NAUSEA/VOMITING-1ST LINE, (Reported) Entered as Reported by: SOWMYA VELA on 06/21/221255 Last Action: Reviewed Pantoprazole Sodium (Pantoprazole Sodium) 40 Mg Tablet.dr, 40 MG PO DAILY, (Reported) Entered as Reported by: SOWMYA VELA on 06/21/221255 Last Action: Reviewed Paroxetine HCl (Paxil Cr) 25 Mg Tab.er.24h, 25 MG PO BID, (Reported) Entered as Reported by: JAVIER MENDENHALL on 06/21/22144 Last Action: Reviewed Psyllium Husk (Metamucil) 0.4 Gram Capsule, 2 EA PO TID, (Reported) Entered as Reported by: SOWMYA VELA on 06/21/221255 Last Action: Reviewed Semaglutide (Ozempic) 1 Mg/0.75 Ml (4 Mg/3 Ml) Pen.injctr, 1 MG INJ SUN, (Re ported) Entered as Reported by: JAVIER MENDENHALL on 06/21/22139 Last Action: Reviewed Tiotropium Jackson (Spiriva) 18 Mcg Aerp, 1 EA IH DAILY, (Reported) Entered as Reported by: KANDI CENTENO on 04/20/17 1413 Last Action: Reviewed Torsemide (Torsemide) 20 Mg Tablet, 20 MG PO DAILY, (Reported) Entered as Reported by: FLAVIA ACEVEDO on 02/19/181544 Last Action: Reviewed Vitamin A (Vitamin A) 2,400 Mcg Capsule, 2,400 MCG PO DAILY, (Reported) Entered as Reported by: SOWMYA VELA on 06/21/221255 Last Action: Reviewed Vitamin E Mixed (Vitamin E) 1,000 Unit Capsule, 1,000 UNIT PO DAILY, (Reported) Entered as Reported by: SOWMYA VELA on 06/21/221255 Last Action: Reviewed Discontinued Medications Alprazolam (Alprazolam) 0.5 Mg Tablet, 0.5 MG PO TID, (Reported) Discontinued Reason: No Longer Taking Entered as Reported by: FLAVIA ACEVEDO on 02/19/181544 Last Action: Discontinued Alprazolam (Xanax) 1 Mg Tablet, 1 MG PO BID, (Reported) Discontinued Reason: No Longer Taking Entered as Reported by: JAVIER MENDENHALL on 06/21/22129 Last Action: Discontinued Aspirin (Aspirin) 325 Mg Tablet, 325 MG PO DAILY, (Reported) Discontinued Reason: No Longer Taking Entered as Reported by: KANDI CENTENO on 02/23/17 8705 Last Action: Discontinued Baclofen (Baclofen) 10 Mg Tablet, 10 MG PO BID PRN for MUSCLE SPASMS, (Reported) Discontinued Reason: No Longer Taking Entered as Reported by: KANDI CENTENO on 04/20/17 1413 Last Action: Discontinued Benazepril HCl (Benazepril HCl) 5 Mg Tablet, 5 MG PO DAILY, (Reported) Discontinued Reason: No Longer Taking Entered as Reported by: TRANG HAUSER on 11/24/15 0736 Last Action: Discontinued Cefdinir (Cefdinir) 300 Mg Capsule, 300 MG PO BID Discontinued Reason: No Longer Taking Prescribed by: GUSTAVO LARA on 02/20/18 1027 Last Action: Discontinued Cholecalciferol (Vitamin D3) (Vitamin D3) 1,000 Unit Capsule, 5,000 UNIT PO DAILY, (Reported) Discontinued Reason: No Longer Taking Entered as Reported by: KANDI CENTENO on 07/20/15 1329 Last Action: Discontinued Ezetimibe (Zetia) 10 Mg Tablet, 10 MG PO HS, (Reported) Discontinued Reason: Duplicate Order Entered as Reported by: JAVIER MENDENHALL on 06/21/22 0146 Last Action: Discontinued Fenofibrate (Fenofibrate) 160 Mg Tablet, 160 MG PO DAILY, (Reported) Discontinued Reason: No Longer Taking Entered as Reported by: FLAVIA ACEVEDO on 02/19/18 1617 Last Action: Discontinued Ferrous Sulfate (Ferrous Sulfate) 325 Mg Tablet.dr, 650 MG PO DAILY, (Reported) Discontinued Reason: Prescription changed Entered as Reported by: FLAVIA ACEVEDO on 02/19/18 1632 Last Action: Reviewed Fluticasone/Salmeterol (Advair 250-50 Diskus) 1 Each Blst.w.dev, 1 PUFF IH BID, (Reported) Discontinued Reason: No Longer Taking Entered as Reported by: KANDI CENTENO on 04/20/17 1413 Last Action: Discontinued Fluticasone/Salmeterol (Advair 500-50 Diskus) 500 Mcg-50 Mcg/Dose Blst.w.dev, 1 PUFF IH BID, (Reported) Discontinued Reason: No Longer Taking Entered as Reported by: JAVIER MENDENHALL on 06/21/22 0129 Last Action: Discontinued Gabapentin (Gabapentin) 300 Mg Capsule, 300 MG PO TID, (Reported) Discontinued Reason: No Longer Taking Entered as Reported by: FLAVIA ACEVEDO on 9/10/18 1545 Last Action: Discontinued Hydrocodone Bit/Acetaminophen (Lortab 5 Mg Tablet) 1 Each Tablet, 1-2 TAB PO DAILY PRN for PAIN-MODERATE (5-7), (Reported) Discontinued Reason: No Longer Taking Entered as Reported by: FLAVIA ACEVEDO on 02/19/181544 Last Action: Discontinued Insulin Aspart (Novolog Flexpen) 300 Units/3 Ml Solution, 22 UNITS SC AC, (Reported) Discontinued Reason: No Longer Taking Entered as Reported by: FLAVIA ACEVEDO on 02/19/181544 Last Action: Discontinued Insulin Detemir (Levemir Flextouch) 100 Unit/1 Ml Insuln.pen, 35 UNITS SC BID, (Reported) Discontinued Reason: No Longer Taking Entered as Reported by: FLAVIA ACEVEDO on 02/19/181544 Last Action: Discontinued Insulin Glargine,Hum.rec.anlog (Toujeo Solostar) 300 Unit/Ml (1.5 Ml) Insuln.pen, 160 UNIT SQ DAILY, (Reported) Discontinued Reason: Duplicate Order Entered as Reported by: JAVIER MENDENHALL on 06/21/22139 Last Action: Discontinued Liraglutide (Victoza 2-Martin) 0.6 Mg/0.1 Ml Pen.injctr, 0.6-1.2 MG SC HS, (Reported) Discontinued Reason: No Longer Taking Entered as Reported by: FLAVIA ACEVEDO on 02/19/181544 Last Action: Discontinued Metoprolol Tartrate (Metoprolol Tartrate) 25 Mg Tablet, 25 MG PO HS, (Reported) Discontinued Reason: Duplicate Order Entered as Reported by: NOVA AVILA on 10/03/15 0522 Last Action: Discontinued [place]-3S/Dha/Epa/Fish Oil (Fish Oil [place]-3 Softgel) 1 Each Capsule.dr, 1 CAP PO DAILY, (Reported) Discontinued Reason: Duplicate Order Entered as Reported by: KANDI CENTENO on 04/20/17 638 Last Action: Discontinued Omeprazole (Omeprazole) 40 Mg Capsule.dr, 40 MG PO DAILY, (Reported) Discontinued Reason: No Longer Taking Entered as Reported by: JAVIER MENDENHALL on 06/21/22142 Last Action: Discontinued Pantoprazole Sodium (Pantoprazole Sodium) 40 Mg Tablet.dr, 40 MG PO DAILY, (Reported) Discontinued Reason: No Longer Taking Entered as Reported by: KANDI CENTENO on 04/20/17 1413 Last Action: Discontinued Paroxetine HCl (Paroxetine HCl) 20 Mg Tablet, 20 MG PO BID, (Reported) Discontinued Reason: No Longer Taking Entered as Reported by: FLAVIA ACEVEDO on 02/19/18 1545 Last Action: Discontinued Polyethylene Glycol 3350 (Polyethylene Glycol 3350) 255 Gm Powder, 17 GM PO DAILY PRN for CONSTIPATION-2ND LINE, (Reported) Discontinued Reason: No Longer Taking Entered as Reported by: FLAVIA ACEVEDO on 02/19/18 1545 Last Action: Discontinued Psyllium Husk (Metamucil) 0.52 Gm Capsule, 0.52 GM PO BID, (Reported) Discontinued Reason: Duplicate Order Entered as Reported by: NOVA AVILA on 10/02/15 4141 Last Action: Discontinued Past Zoabean-Ihjkrh-Xyciad Hx Patient Social History Smoking Status: Former Smoker Alcohol Use?: No Surgeries History of Surgeries: Yes Surgeries: Section, Hysterectomy, Orthopedic (L rotator cuff) Respiratory History of Respiratory Disorde: Yes Respiratory Disorders: Asthma, Sleep Apnea, COPD Cardiovascular History of Cardiac Disorders: Yes Cardiac Disorders: High Cholesterol, Hypertension Neurological History of Neurological Disord: Yes Neurological Disorders: Neuropathy Reproductive System : No Genitourinary History of Genitourinary Disor: Yes Genitourinary Disorders: Renal Failure Gastrointestinal History of Gastrointestinal Di: Yes Gastrointestinal Disorders: Gastroesophageal Reflux Musculoskeletal History of Musculoskeletal Dis: Yes Musculoskeletal Disorders: Fibromyalgia Endocrine History of Endocrine Disorders: Yes Endocrine Disorders: Diabetes, Insulin dep HEENT History of HEENT Disorders: Yes HEENT Disorders: Cataract Hearing Impairment: Hard of Hearing Cancer History of Cancer: No Psychosocial History of Psychiatric Problem: Yes Behavioral Health Disorders: Anxiety, Depression Family Medical History Significant Family History: Cancer (Cervical in mother), CAD Over 55 Years Old (Father), Diabetes (Mother and Father), Hypertension (Mother and Father) Family Medial History: Arthritis 19 FATHER 19 MOTHER Cardiovascular disease 19 FATHER Cervical cancer 19 MOTHER Diabetes mellitus 19 FATHER Hypertension 19 FATHER 19 MOTHER Review of Systems-General Constitutional: chills, fever EENTM: ear pain, blurred vision, eye pain, mouth pain Respiratory: No cough, No dyspnea on exertion, No short of breath Cardiovascular: No chest pain, No palpitations Gastrointestinal: No abdominal pain, No vomiting Genitourinary: No dysuria, No hematuria Skin: change in color, other (Cellulitis left face) Psychiatric/Neurological: Anxiety, Depressed Physical Exam-General Problems Physical Exam General Appearance: no apparent distress, obese Eyes: Bilateral Eye PERRL, Bilateral Eye EOMI HEENT: No scleral icterus (R), No scleral icterus (L), No pale conjunctivae (R), No pale conjunctivae (L); other (Large red, swollen, indurated area on left face extending from corner of left eye to ear with radiation down to left mandible. Swelling inferior to left eye. Pain with eye movement that has improved but is still present.) Neck: supple, tender lateral (Tender inferior to mandible on left) Respiratory: chest non-tender, no respiratory distress, no accessory muscle use, decreased breath sounds (Distant but clear) Cardiovascular: normal peripheral pulses, regular rate, rhythm, no murmur Gastrointestinal: non tender, soft Extremities: non-tender, normal inspection Neurologic/Psychiatric: alert, normal mood/affect, oriented x 3 Skin: other (As previously mentioned in HEENT, cellulitis of left face) Lymphatic: other (Left inframandibular adenopathy) Assessment/Plan Assessment/Plan Assessment/Plan Facial cellulitis Preseptal vs. orbital vs. facial Unknown etiology, possible insect bite Pain with eye movement raise suspicion for orbital but no proptosis present Per radiology reprot: Prominent subcutaneous edema in the region of the left cheek extending laterally and posteriorly and also superficial to the left orbit without identified focal fluid collection or abscess. Leukocytosis WBC 14 to 11.9 CKD III COPD Diabetes At this time there is not a surgical indication for I&D. Patient does have quite severe facial cellulitis however with abx she seems to be improving. With the close proximity to her eye and pain with eye movements I think there needs to be a low threshold for sending her to ENT/optho if her condition worsens or does not improve with medical management. Continue IV pip/tazo and vancomycin, Enoxaparin DVT ppx Supervisory-Addendum Brief Verification & Attestation Participated in pt care: history, MDM, physical Personally performed: exam, history, MDM, supervision of care Care discussed with: Medical Student Procedures: n/a Verification and Attestation of Medical Student E/M Service A medical student performed and documented this service. I then reviewed and verified all information documented by the medical student and made m odifications to such information, when appropriate. I personally performed a physical exam, medical decision making and then discussed any differences between the notes and made revisions as necessary to create one note. Trang Woodard , 06/21/22 , 13:58 AMBER BELTRE Jun 21, 2022 08:15 TRANG WOODARD DO Jun 21, 2022 13:57
[2022-06-21] MEDS: ONDANSETRON 4 MG/2 ML (SDV) Z0FRAN IV PRN ×2 (08:37→20:25)
[2022-06-21] MEDS: DOCUSATE SODIUM 100 MG (COLACE) CAP PO SCH ×2 (08:37→20:16)
[2022-06-21] MEDS: SENNOSIDES 8.6 MG (SENOKOT) TAB PO SCH ×2 (08:37→20:16)
[2022-06-21] MEDS: cloNIDine 0.1 MG (CATAPRES) TAB PO PRN (08:37)
[2022-06-21] MEDS: ACETAMINOPHEN 325 MG TABLET PO PRN (11:14)
[2022-06-21 11:48] VITALS: BP 111/63
[2022-06-21] MEDS ORDERED: VITA80009 PO (12:56)
[2022-06-21] MEDS ORDERED: OMEG10005 PO (12:56)
[2022-06-21] MEDS ORDERED: EZET10TA49 PO (12:56)
[2022-06-21] MEDS ORDERED: FERR142T17 PO (12:56)
[2022-06-21] MEDS ORDERED: ALPR0.5T7 PO (12:56)
[2022-06-21] MEDS ORDERED: PANT40TA52 PO (12:56)
[2022-06-21] MEDS ORDERED: CETI10TA17 PO (12:56)
[2022-06-21] MEDS ORDERED: INSU300I3 SC (12:56)
[2022-06-21] MEDS ORDERED: MULT-1021 PO (12:56)
[2022-06-21] MEDS ORDERED: DOXY100T2 PO (12:56)
[2022-06-21] MEDS ORDERED: MILK175T PO (12:56)
[2022-06-21] MEDS ORDERED: PSYL0.4C2 PO (12:56)
[2022-06-21] MEDS ORDERED: CHOL200059 PO (12:56)
[2022-06-21] MEDS ORDERED: VITA100033 PO (12:56)
[2022-06-21] MEDS ORDERED: INSU100I48 SC (12:56)
[2022-06-21] MEDS ORDERED: ONDA4TAB11 PO (12:56)
[2022-06-21] MEDS ORDERED: CYCL10TA25 PO (12:56)
[2022-06-21] MEDS ORDERED: METO-333 PO (13:03)
[2022-06-21 15:46] VITALS: BP 153/78
[2022-06-21] MEDS: VANCOMYCIN 1 GM/NS 250 ML IVPB IV SCH ×2 (18:44)
[2022-06-21 19:21] VITALS: BP 156/74
[2022-06-21 23:39] VITALS: BP 144/69
[2022-06-22] VITALS (10 sets, daily range): BP systolic 128–183; BP diastolic 65–88
[2022-06-22] MEDS: PIPERACILLIN SODIUM/TAZOBACTAM 4.5 GM in NS (IVPB) 100 ML IV SCH ×3 (04:10→20:12)
[2022-06-22] MEDS: ONDANSETRON 4 MG/2 ML (SDV) Z0FRAN IV PRN (04:12)
[2022-06-22] MEDS ORDERED: RT-ALBUTEROL SULF 2.5 MG/3 ML PRE-MIX VIAL IH PRN ×2 (04:45)
[2022-06-22] MEDS ORDERED: ONDANSETRON 4 MG (ZOFRAN) ORAL DISSOLVE TAB PO PRN (04:45)
[2022-06-22] MEDS ORDERED: CYCLOBENZAPRINE 10 MG (FLEXERIL) TAB PO PRN (05:15)
[2022-06-22 05:21] LABS: BASOPHILS # (AUTO) 0.1 10^3/uL (0.0-0.1); BASOPHILS % (AUTO) 1 % (0-10); EOSINOPHILS # (AUTO) 0.6 10^3/uL (0.0-0.3); EOSINOPHILS % (AUTO) 7 % (0-10); HEMATOCRIT 40 % (35-52); HEMOGLOBIN 12.7 g/dL (11.5-16.0); LYMPHOCYTES # (AUTO) 1.9 10^3/uL (1.0-4.0); LYMPHOCYTES % (AUTO) 23 % (12-44); MEAN CORPUSCULAR HEMOGLOBIN 28 pg (25-34); MEAN CORPUSCULAR HGB CONC 32 g/dL (32-36); MEAN CORPUSCULAR VOLUME 87 fL (80-99); MEAN PLATELET VOLUME 9.8 fL (9.0-12.2); MONOCYTES # (AUTO) 0.9 10^3/uL (0.0-1.0); MONOCYTES % (AUTO) 11 % (0-12); NEUTROPHILS # (AUTO) 4.8 10^3/uL (1.8-7.8); NEUTROPHILS % (AUTO) 59 % (42-75); PLATELET COUNT 288 10^3/uL (130-400); WHITE BLOOD COUNT 8.3 10^3/uL (4.3-11.0)
[2022-06-22 05:55] LABS: ALBUMIN 3.2 GM/DL (3.2-4.5); BILIRUBIN,TOTAL 0.3 MG/DL (0.1-1.0); CALCIUM 9.2 MG/DL (8.5-10.1); CREATININE SERUM 0.93 MG/DL (0.60-1.30); POTASSIUM 4.1 MMOL/L (3.6-5.0); TOTAL PROTEIN 7.1 GM/DL (6.4-8.2)
[2022-06-22] MEDS: inSUlin ASPART (NovoLOG) 1 UNIT/0.01 ML (CHARGE PER UNIT) SC SCH ×4 (06:00→20:29)
[2022-06-22] MEDS: PANTOPRAZOLE 40 MG (PROTONIX) TAB PO SCH (06:14)
--- NOTE | 2022-06-22 06:56 | Progress Note - Hospitalist ---
Subjective HPI/CC On Admission Date Seen by Provider: Jun 22, 2022 Time Seen by Provider: 09:00 CC: Left sided facial cellulitis HPI: This is 62 yr old female with a past medical history of diabetes. She presents to room 408 with left sided facial cellulitis. She reports that it progressively worsened quickly. She was placed on broad spectrum antibiotics due to diabetes. Pt is currently stable. Subjective/Events-last exam Pt is doing a lot better Incision and drainage went very well per Dr. Silver this morning Blood sugars reviewed Labs reviewed Will ambulate today Focused Exam Lactate Level 06/20/22 21:15: Lactic Acid Level 2.12*H 06/20/22 23:22: Lactic Acid Level 1.01 Objective Exam Vital Signs Vital Signs Date Time Temp Pulse Resp B/P (MAP) Pulse Ox O2 Delivery O2 Flow Rate FiO2 06/23/22 03:54 37.1 94 16 146/78 (100) 98 Room Air 06/22/22 18:59 3.00 06/20/22 23:40 21 Capillary Refill : General Appearance: No Apparent Distress, WD/WN, Chronically ill Respiratory: Lungs Clear, Normal Breath Sounds Cardiovascular: Regular Rate, Rhythm Neurologic/Psychiatric: Alert, Oriented x3, No Motor/Sensory Deficits, Normal Mood/Affect Results/Procedures Lab Laboratory Tests 06/22/22 05:11 Patient resulted labs reviewed. Assessment/Plan Assessment and Plan Assess & Plan/Chief Complaint Assessment: Left facial cellulitis s/p I&D Sepsis [place] HTN CAD HTN HLP Obesity DM Plan: IV abx Dr Silver consult HLIVF Pain control Home meds Diagnosis/Problems Diagnosis/Problems (1) Facial cellulitis (2) Sepsis JIM TAMAYO DO Jun 22, 2022 06:56
[2022-06-22] MEDS: RT--FLUTICASONE/SALMETEROL 232-14 (AIRDUO RespiCLICK) IH SCH ×2 (08:05→17:24)
[2022-06-22] MEDS: UMECLIDINIUM BROMIDE (INCRUSE ELLIPTA) 7'S IH SCH (08:05)
--- NOTE | 2022-06-22 08:07 | Progress Note - Surgery ---
JOVAN ALCANTAR 06/22/22 0807: Subjective Date Seen by a Provider: Jun 22, 2022 Time Seen by a Provider: 07:10 Subjective/Events-last exam Pt resting comfortably in bed. States she is not feeling well this morning, noting a headache and nausea. Denies vomiting. Her facial pressure and pain have improved minimally. She was NPO over night, however her blood sugar dropped into the 40s requiring small amount of orange juice at 0330. She reports some pain to the top of her right foot, denies any recent trauma or injury. Denies vomiting, fever, chills, cough, chest pain, or any other sx. She had a normal bowel movement yesterday. Review of Systems General: No Chills, No Night Sweats HEENT: Head Aches; No Visual Changes; Other (left facial swelling, redness, and pain - slightly improved from yesterday) Pulmonary: No Dyspnea, No Cough Cardiovascular: No: Chest Pain, Edema Gastrointestinal: Nausea; No: Vomiting, Abdominal Pain, Diarrhea, Constipation, Melena Genitourinary: No Dysuria, No Frequency Musculoskeletal: foot pain (right foot pain ); No: leg pain Neurological: No: Weakness, Numbness Focused Exam Lactate Level 06/20/22 21:15: Lactic Acid Level 2.12*H 06/20/22 23:22: Lactic Acid Level 1.01 Objective Exam Vital Signs Date Time Temp Pulse Resp B/P (MAP) Pulse Ox O2 Delivery O2 Flow Rate FiO2 06/22/22 07:05 36.3 100 18 166/80 (108) 92 Nasal Cannula 3.00 3.00 06/22/22 03:23 36.4 102 20 155/74 (101) 96 Nasal Cannula 3.00 06/21/22 23:39 36.4 106 20 144/69 (94) 91 Room Air 06/21/22 19:55 Room Air 06/21/22 19:21 36.1 91 18 156/74 (101) 93 Room Air 06/21/22 19:21 98 Room Air 06/21/22 15:46 36.1 102 17 153/78 (103) 98 Nasal Cannula 3.00 06/21/22 14:02 36.8 06/21/22 13:32 36.8 06/21/22 11:48 36.8 87 18 111/63 (79) 91 Room Air 06/21/22 11:44 36.8 06/21/22 11:14 36.2 06/21/22 09:07 36.2 06/21/22 08:37 36.2 06/21/22 08:23 95 Room Air 0.00 06/21/22 08:06 36.2 79 18 165/83 (110) 95 Room Air I & O 06/22/22 07:00 Intake Total 2550 ml Balance 2550 ml Capillary Refill : General Appearance: No Apparent Distress, Anxious, Chronically ill, Obese HEENT: PERRL/EOMI, Moist Mucous Membranes, Other (left face with edema and er ythema which has improved some since yesterday. Area of induration and tenderness, likely an abscess. Minimal fluctuance. ) Neck: Full Range of Motion, Normal Inspection, Non Tender, Supple Respiratory: Chest Non Tender, Lungs Clear, Normal Breath Sounds, No Accessory Muscle Use, No Respiratory Distress Cardiovascular: Regular Rate, Rhythm, No Edema, No Gallop, No JVD, No Murmur, Normal Peripheral Pulses Peripheral Pulses: 2+ Radial Pulses (R), 2+ Radial Pulses (L) Gastrointestinal: normal bowel sounds, non tender, soft; No distended, No guarding, No rebound Extremity: Normal Capillary Refill, Normal Inspection, Normal Range of Motion, Non Tender, No Calf Tenderness, No Pedal Edema Neurologic/Psychiatric: Alert, Oriented x3, Normal Mood/Affect Skin: Normal Color, Warm/Dry Lymphatic: No Adenopathy Results Lab Laboratory Tests 06/21/22 20:11: Glucometer 162H 06/22/22 04:07: Glucometer 73 06/22/22 05:11: White Blood Count 8.3, Red Blood Count 4.55, Hemoglobin 12.7, Hematocrit 40, Mean Corpuscular Volume 87, Mean Corpuscular Hemoglobin 28, Mean Corpuscular Hemoglobin Concent 32, Red Cell Distribution Width 13.5, Platelet Count 288, Mean Platelet Volume 9.8, Immature Granulocyte % (Auto) 1, Neutrophils (%) (Auto) 59, Lymphocytes (%) (Auto) 23, Monocytes (%) (Auto) 11, Eosinophils (%) (Auto) 7, Basophils (%) (Auto) 1, Neutrophils # (Auto) 4.8, Lymphocytes # (Auto) 1.9, Monocytes # (Auto) 0.9, Eosinophils # (Auto) 0.6H, Basophils # (Auto) 0.1, Immature Granulocyte # (Auto) 0.0, Sodium Level 141, Potassium Level 4.1, Chloride Level 108H, Carbon Dioxide Level 22, Anion Gap 11, Blood Urea Nitrogen 10, Creatinine 0.93, Estimat Glomerular Filtration Rate 70, BUN/Creatinine Ratio 11, Glucose Level 88, Calcium Level 9.2, Corrected Calcium 9.8, Total Bilirubin 0.3, Aspartate Amino Transf (AST/SGOT) 34, Alanine Aminotransferase (ALT/SGPT) 19, Alkaline Phosphatase 83, Total Protein 7.1, Albumin 3.2 06/22/22 05:42: Glucometer 86 Microbiology 06/20/22 Urine Culture - Preliminary, Resulted Culture In Progress 06/20/22 Blood Culture - Preliminary, Resulted No growth Assessment/Plan Assessment/Plan Assessment/Plan Left Facial cellulitis Per radiology reprot: Prominent subcutaneous edema in the region of the left cheek extending laterally and posteriorly and also superficial to the left orbit without identified focal fluid collection or abscess. Leukocytosis WBC 11.9 to 8.3 this morning. CKD III COPD Diabetes Facial cellulitis improved some with abx. Discussed possibility of taking to OR today for surgical I&D. Counseled pt on risks and benefits. She verbalizes agreement and understanding. NPO Continue IV pip/tazo and vancomycin Enoxaparin DVT ppx DEBBI SILVER DO 06/22/22 0849: Subjective Subjective/Events-last exam Slight improvement of pressure on left face. No visual changes. Blood sugar dropoped. Erythema still present. Denies n/v fever sweats chills shortness of breath or chest pain. NPO. Objective Exam General Appearance: No Apparent Distress, Obese HEENT: PERRL/EOMI, Other (left face with edema and erythema which has slightly improved some since yesterday. Area of induration and tenderness with area of fluctuance. ) Neck: Normal Inspection, Non Tender Respiratory: Chest Non Tender, No Accessory Muscle Use, No Respiratory Distress Cardiovascular: Regular Rate, Rhythm, No JVD Gastrointestinal: non tender, soft Extremity: Normal Inspection, Non Tender Neurologic/Psychiatric: Alert, Oriented x3 Skin: Warm/Dry, Other (left face erythema) Lymphatic: No Adenopathy Assessment/Plan Assessment/Plan Assessment/Plan Left Facial cellulitis/abscess Per radiology reprot: Prominent subcutaneous edema in the region of the left cheek extending laterally and posteriorly and also superficial to the left orbit without identified focal fluid collection or abscess. Leukocytosis WBC 11.9 to 8.3 this morning. CKD III COPD Diabetes Facial cellulitis improved some with abx. Feel area of fluctuance consistent with abscess. Discussed risks and benefits of taking to OR today for surgical I&D. She understands and agrees with plan. NPO Continue IV pip/tazo and vancomycin Enoxaparin DVT ppx Supervisory-Addendum Brief Verification & Attestation Participated in pt care: history, MDM, physical Personally performed: exam, history, MDM, supervision of care Care discussed with: Medical Student Procedures: n/a Results interpretation: Verified all documentation Verification and Attestation of Medical Student E/M Service A medical student performed and documented this service in my presence. I reviewed and verified all information documented by the medical student and made modifications to such information, when appropriate. I personally performed the physical exam and medical decision making. Debbi Silver, Jun 22, 2022,08:49 JOVAN ALCANTAR Jun 22, 2022 08:07 DEBBI SILVER DO Jun 22, 2022 08:49
[2022-06-22] MEDS: GLIMEPIRIDE 4 MG (AMARYL) TAB PO SCH (08:45)
[2022-06-22] MEDS: DOCUSATE SODIUM 100 MG (COLACE) CAP PO SCH ×2 (08:45→20:18)
[2022-06-22] MEDS: TORSEMIDE 20 MG (DEMADEX) TAB PO SCH (08:45)
[2022-06-22] MEDS: FERROUS SULF 325 MG (IRON) TAB PO SCH (08:47)
[2022-06-22] MEDS: GABAPENTIN 400 MG (NEURONTIN) CAP PO SCH ×3 (08:48→20:18)
[2022-06-22] MEDS: PARoxetine 20 MG (PAXIL) TAB PO SCH ×2 (08:51→20:19)
[2022-06-22] MEDS: PARoxetine 10 MG (PAXIL) TAB PO SCH ×2 (08:51→20:18)
[2022-06-22] MEDS: ENOXAPARIN 40 MG/0.4 ML (LOVENOX) SYR SC SCH ×2 (08:52→20:20)
[2022-06-22] MEDS: SENNOSIDES 8.6 MG (SENOKOT) TAB PO SCH ×2 (08:52→20:18)
[2022-06-22] MEDS: ALPRAZolam 1 MG (XANAX) TAB PO SCH ×2 (08:52→20:19)
[2022-06-22] MEDS ORDERED: LACTATED RINGERS 1,000 ML IV PRN ×2 (09:00→09:15)
[2022-06-22] MEDS: EMPAGLIFLOZIN 10 MG TABLET (JARDIANCE) PO SCH (09:13)
[2022-06-22] MEDS: ESTROGENS CONJ 0.625 MG (PREMARIN) TAB PO SCH (09:14)
[2022-06-22] MEDS: buPROPion SR 150 MG (WELLBUTRIN SR) TAB PO SCH (09:14)
[2022-06-22] MEDS ORDERED: fentaNYL INJ 100 MCG/2 ML AMP ONE (09:21)
[2022-06-22] MEDS ORDERED: ONDANSETRON 4 MG/2 ML (SDV) Z0FRAN ONE (09:37)
[2022-06-22] MEDS ORDERED: proPOfol 200 MG/20 ML (DIPRIVAN) VIAL IV ONE (09:37)
[2022-06-22] MEDS ORDERED: SUCCINYLCHOLINE INJ 20 MG/1 ML 10 ML VIAL ONE (09:37)
[2022-06-22] MEDS ORDERED: ESMOLOL 100 MG/10 ML (BREVIBLOC) VIAL ONE (09:38)
[2022-06-22] MEDS ORDERED: SEVOFLURANE (ULTANE) 15 ML INHAL SOLN ONE (09:41)
--- NOTE | 2022-06-22 10:05 | Anesthesia-General Post-Op ---
General Patient Condition Mental Status/LOC: Same as Preop Cardiovascular: Satisfactory Nausea/Vomiting: Absent Respiratory: Satisfactory Pain: Controlled Complications: Absent Post Op Complications Complications None Follow Up Care/Instructions Patient Instructions None needed. Anesthesia/Patient Condition Patient Condition Patient is doing well, no complaints, stable vital signs, no apparent adverse anesthesia problems. No complications reported per nursing. NOELLE GROVE CRNA Jun 22, 2022 10:05
[2022-06-22] MEDS: ACETAMINOPHEN 325 MG TABLET PO PRN (11:22)
[2022-06-22] MEDS: cloNIDine 0.1 MG (CATAPRES) TAB PO PRN (11:50)
[2022-06-22] MEDS: CLINDAMYCIN 600 MG/50 ML IVPB 50 ML IV SCH ×2 (12:07→22:14)
[2022-06-22] MEDS: inSUlin ASPART (NovoLOG) 1 UNIT/0.01 ML (CHARGE PER UNIT) SQ SCH ×2 (12:18→18:32)
[2022-06-22] MEDS ORDERED: TROUGH ORDER-PHARMACY XX NR (17:00)
[2022-06-22] MEDS: VANCOMYCIN 1 GM/NS 250 ML IVPB IV SCH ×4 (18:31→18:41)
[2022-06-22] MEDS: meTOprolol TARTRATE 25 MG (LOPRESSOR) TABLET PO SCH (20:19)
[2022-06-22] MEDS: LORATADINE (CLARITIN) 10 MG TAB PO SCH (20:19)
[2022-06-22] MEDS: eZETimibe 10 MG (ZETIA) TABLET PO SCH (20:20)
[2022-06-22] MEDS: MONTELUKAST 10 MG (SINGULAIR) TAB PO SCH (20:20)
[2022-06-22] MEDS: MIRTAZAPINE 15 MG (REMERON) TAB PO SCH (20:20)
[2022-06-22] MEDS: HYDROcodone/APAP 7.5 MG/325 MG (LORTAB, LORCET PLUS) TABLET PO PRN (20:29)
--- NOTE | 2022-06-23 03:34 | OPERATIVE REPORT ---
DATE OF SERVICE: 06/22/2022 PREOPERATIVE DIAGNOSIS: Left face abscess. POSTOPERATIVE DIAGNOSIS: Left face abscess. PROCEDURE: Incision and drainage of left face abscess through skin and subcutaneous tissue. SURGEON: Debbi Silver DO TYPE OF ANESTHESIA: General. ESTIMATED BLOOD LOSS: Minimal. COMPLICATIONS: None. INDICATIONS: The patient is a 62-year-old female with an abscess of her left face. She understands risks and benefits of the procedure and wished to proceed. Consent was signed and placed in the chart. DESCRIPTION OF PROCEDURE: The patient was taken to the operating suite. She was prepped and draped in sterile fashion. Timeout was performed over the area of fluctuance. A 15 blade scalpel was used to make a skin incision and dissection was taken down with a hemostat down to the skin and subcutaneous tissues until a pocket of purulent material erupted. Culture was obtained. Purulent material was erupted. Air was evacuated and the wound was then irrigated with copious amounts of irrigation. The incision was approximately 1.5 cm in length. After irrigation, the wound was then packed with quarter-inch iodoform. Sterile bandage was applied. The patient tolerated the procedure well without complications. She was taken to recovery in stable condition. Job ID: [id number] DocumentID: [id number] Dictated Date: 06/22/2022 16:19:06 Bottling Line Attendant Date: 06/23/2022 03:32:00 Dictated By: DEBBI SILVER DO
[2022-06-23] MEDS: PIPERACILLIN SODIUM/TAZOBACTAM 4.5 GM in NS (IVPB) 100 ML IV SCH ×3 (03:53→20:23)
[2022-06-23 03:54] VITALS: BP 146/78
[2022-06-23] MEDS: PANTOPRAZOLE 40 MG (PROTONIX) TAB PO SCH (05:17)
[2022-06-23] MEDS: CLINDAMYCIN 600 MG/50 ML IVPB 50 ML IV SCH ×3 (05:17→22:24)
[2022-06-23 05:57] LABS: BASOPHILS # (AUTO) 0.1 10^3/uL (0.0-0.1); BASOPHILS % (AUTO) 1 % (0-10); EOSINOPHILS # (AUTO) 0.1 10^3/uL (0.0-0.3); EOSINOPHILS % (AUTO) 1 % (0-10); HEMATOCRIT 38 % (35-52); HEMOGLOBIN 11.9 g/dL (11.5-16.0); LYMPHOCYTES # (AUTO) 1.8 10^3/uL (1.0-4.0); LYMPHOCYTES % (AUTO) 23 % (12-44); MEAN CORPUSCULAR HEMOGLOBIN 28 pg (25-34); MEAN CORPUSCULAR HGB CONC 32 g/dL (32-36); MEAN CORPUSCULAR VOLUME 89 fL (80-99); MONOCYTES # (AUTO) 0.9 10^3/uL (0.0-1.0); MONOCYTES % (AUTO) 11 % (0-12); NEUTROPHILS % (AUTO) 62 % (42-75); PLATELET COUNT 302 10^3/uL (130-400)
[2022-06-23 06:04] LABS: ALBUMIN 3.3 GM/DL (3.2-4.5)
[2022-06-23 06:05] LABS: CALCIUM 9.3 MG/DL (8.5-10.1)
[2022-06-23 06:07] LABS: TOTAL PROTEIN 7.2 GM/DL (6.4-8.2)
[2022-06-23 06:08] LABS: BILIRUBIN,TOTAL 0.2 MG/DL (0.1-1.0)
[2022-06-23 06:10] LABS: CREATININE SERUM 1.22 MG/DL (0.60-1.30)
[2022-06-23] MEDS: inSUlin ASPART (NovoLOG) 1 UNIT/0.01 ML (CHARGE PER UNIT) SC SCH ×4 (06:20→20:35)
[2022-06-23] MEDS: VANCOMYCIN 1 GM/NS 250 ML IVPB IV SCH ×4 (06:20→18:38)
[2022-06-23 07:59] VITALS: BP 164/74
[2022-06-23] MEDS: buPROPion SR 150 MG (WELLBUTRIN SR) TAB PO SCH (08:36)
[2022-06-23] MEDS: ENOXAPARIN 40 MG/0.4 ML (LOVENOX) SYR SC SCH ×2 (08:36→20:35)
[2022-06-23] MEDS: PARoxetine 20 MG (PAXIL) TAB PO SCH ×2 (08:36→20:23)
[2022-06-23] MEDS: FERROUS SULF 325 MG (IRON) TAB PO SCH (08:36)
[2022-06-23] MEDS: ALPRAZolam 1 MG (XANAX) TAB PO SCH ×2 (08:36→20:23)
[2022-06-23] MEDS: TORSEMIDE 20 MG (DEMADEX) TAB PO SCH (08:37)
[2022-06-23] MEDS: GLIMEPIRIDE 4 MG (AMARYL) TAB PO SCH (08:37)
[2022-06-23] MEDS: DOCUSATE SODIUM 100 MG (COLACE) CAP PO SCH ×2 (08:38→20:24)
[2022-06-23] MEDS: PARoxetine 10 MG (PAXIL) TAB PO SCH ×2 (08:38→20:23)
[2022-06-23] MEDS: EMPAGLIFLOZIN 10 MG TABLET (JARDIANCE) PO SCH (08:38)
[2022-06-23] MEDS: GABAPENTIN 400 MG (NEURONTIN) CAP PO SCH ×3 (08:38→20:24)
[2022-06-23] MEDS: ESTROGENS CONJ 0.625 MG (PREMARIN) TAB PO SCH (08:38)
[2022-06-23] MEDS: SENNOSIDES 8.6 MG (SENOKOT) TAB PO SCH ×2 (08:38→20:23)
[2022-06-23] MEDS: inSUlin ASPART (NovoLOG) 1 UNIT/0.01 ML (CHARGE PER UNIT) SQ SCH ×3 (08:39→18:38)
--- NOTE | 2022-06-23 09:48 | Progress Note - Surgery ---
JOVAN ALCANTAR 06/23/22 0948: Subjective Date Seen by a Provider: Jun 23, 2022 Time Seen by a Provider: 07:45 Subjective/Events-last exam Pt resting comfortably. She tolerated I&D procedure well, swelling and redness improving. States her pain is better. She continues to have mild nausea, vomiting and headache. She is on a regular diet, having normal bowel movements and no urinary sx. Denies fever, chills, chest pain, and shortness of breath. Review of Systems General: No Chills, No Night Sweats HEENT: Head Aches, Other (left facial cellulits improving) Pulmonary: No Dyspnea, No Cough Cardiovascular: No: Chest Pain Gastrointestinal: Nausea, Vomiting; No: Abdominal Pain, Diarrhea, Constipation Genitourinary: No Dysuria, No Frequency Musculoskeletal: No: leg pain Neurological: No: Weakness, Numbness Focused Exam Lactate Level 06/20/22 21:15: Lactic Acid Level 2.12*H 06/20/22 23:22: Lactic Acid Level 1.01 Objective Exam Vital Signs Date Time Temp Pulse Resp B/P (MAP) Pulse Ox O2 Delivery O2 Flow Rate FiO2 06/23/22 07:59 36.4 84 18 164/74 (104) 98 Nasal Cannula 3.00 3.00 06/23/22 03:54 37.1 94 16 146/78 (100) 98 Room Air 06/22/22 23:10 36.2 89 18 131/76 (94) 94 Room Air 06/22/22 20:20 Room Air 06/22/22 18:59 36.5 101 17 139/65 (89) 97 Nasal Cannula 3.00 06/22/22 17:24 99 Nasal Cannula 4.00 06/22/22 16:02 36.4 06/22/22 15:16 36.4 118 18 149/74 (99) 95 Room Air 06/22/22 11:26 36.9 110 18 183/81 (115) 94 Room Air 06/22/22 10:29 37.2 110 18 128/78 (95) 91 Room Air 0.00 0.00 06/22/22 10:15 Room Air 06/22/22 10:10 37.4 18 151/78 (102) 95 Room Air 06/22/22 10:00 16 164/82 (109) 94 Room Air 06/22/22 10:00 Room Air 06/22/22 09:48 Room Air 06/22/22 09:48 36.9 24 146/88 (107) 93 Room Air I & O 06/23/22 07:00 Intake Total 2230 ml Output Total 1400 ml Balance 830 ml Capillary Refill : General Appearance: No Apparent Distress, WD/WN, Obese HEENT: PERRL/EOMI, Moist Mucous Membranes, Other (left facial cellulitis significantly improving. I&D packing and dressing in place. Minimal purulent d rainage noted. Decreased fluctuance and tenderness. ) Neck: Normal Inspection, Non Tender Respiratory: Lungs Clear, Normal Breath Sounds Cardiovascular: Regular Rate, Rhythm, No JVD, Normal Peripheral Pulses Peripheral Pulses: 2+ Radial Pulses (R), 2+ Radial Pulses (L) Gastrointestinal: non tender, soft; No distended, No guarding, No rebound Extremity: Normal Inspection, Non Tender Neurologic/Psychiatric: Alert, Oriented x3, Normal Mood/Affect Skin: Normal Color, Warm/Dry Lymphatic: No Adenopathy Results Lab Laboratory Tests 06/22/22 11:30: Glucometer 145H 06/22/22 15:18: Glucometer 234H 06/22/22 17:08: Vancomycin Level Trough 5.1L 06/22/22 20:13: Glucometer 231H 06/23/22 05:15: White Blood Count 8.0, Red Blood Count 4.23, Hemoglobin 11.9, Hematocrit 38, Mean Corpuscular Volume 89, Mean Corpuscular Hemoglobin 28, Mean Corpuscular Hemoglobin Concent 32, Red Cell Distribution Width 14.0, Platelet Count 302, Mean Platelet Volume 10.0, Immature Granulocyte % (Auto) 2, Neutrophils (%) (Auto) 62, Lymphocytes (%) (Auto) 23, Monocytes (%) (Auto) 11, Eosinophils (%) (Auto) 1, Basophils (%) (Auto) 1, Neutrophils # (Auto) 5.0, Lymphocytes # (Auto) 1.8, Monocytes # (Auto) 0.9, Eosinophils # (Auto) 0.1, Basophils # (Auto) 0.1, Immature Granulocyte # (Auto) 0.2H, Sodium Level 142, Potassium Level 4.0, Chloride Level 105, Carbon Dioxide Level 25, Anion Gap 12, Blood Urea Nitrogen 12, Creatinine 1.22, Estimat Glomerular Filtration Rate 50, BUN/Creatinine Ratio 10, Glucose Level 254H, Calcium Level 9.3, Corrected Calcium 9.9, Total Bilirubin 0.2, Aspartate Amino Transf (AST/SGOT) 30, Alanine Aminotransferase (ALT/SGPT) 21, Alkaline Phosphatase 89, Total Protein 7.2, Albumin 3.3 Microbiology 06/22/22 Gram Stain, Resulted Pending 06/22/22 Anaerobic Culture, Resulted Pending 06/22/22 Surgical Culture - Preliminary, Resulted Staphylococcus aureus 06/20/22 Urine Culture - Final, Complete >=3 Gram Positive Isolates 06/20/22 Blood Culture - Preliminary, Resulted No growth Assessment/Plan Assessment/Plan Assessment/Plan Left Facial cellulitis/abscess - I&D POD 1 Leukocytosis WBC 8.0 this morning. CKD III COPD Diabetes Facial cellulitis significantly improved. Pt tolerated I&D procedure well. Wound improved with less fluctuance, redness and swelling. Irrigate wound and repack. Continue abx Enoxaparin DVT ppx Pt is agreeable with plan DEBBI SILVER DO 06/23/22 1625: Subjective Subjective/Events-last exam No issues. Swelling and erythema less. Pain improving. Slight nausea. No other complaints. Denies fever sweats chills shortness of breath or chest pain. Objective Exam General Appearance: No Apparent Distress, WD/WN, Obese HEENT: PERRL/EOMI, Normal ENT Inspection Neck: Normal Inspection, Non Tender Respiratory: Chest Non Tender, No Accessory Muscle Use, No Respiratory Distress Cardiovascular: Regular Rate, Rhythm, No JVD Gastrointestinal: non tender, soft Extremity: Normal Inspection, Non Tender Neurologic/Psychiatric: Alert, Oriented x3, Normal Mood/Affect Skin: Warm/Dry, Other (minimal erythema, no purulent drainage open wound overall improving) Assessment/Plan Assessment/Plan Assessment/Plan Left Facial cellulitis/abscess - I&D POD 1 Leukocytosis WBC 8.0 this morning. CKD III COPD Diabetes Facial cellulitis significantly improved. Pt tolerated I&D procedure well. Wound improved with less fluctuance, redness and swelling. Irrigate wound and repack. Continue abx Daily wound assisted soon. Supervisory-Addendum Brief Verification & Attestation Participated in pt care: history, MDM, physical Personally performed: exam, history, MDM, supervision of care Care discussed with: Medical Student Procedures: n/a Results interpretation: Verified all documentation Verification and Attestation of Medical Student E/M Service A medical student performed and documented this service in my presence. I reviewed and verified all information documented by the medical student and made modifications to such information, when appropriate. I personally performed the physical exam and medical decision making. Debbi Silver, Jun 23, 2022,16:24 JOVAN ALCANTAR Jun 23, 2022 09:48 DEBBI SILVER DO Jun 23, 2022 16:25
[2022-06-23] MEDS: UMECLIDINIUM BROMIDE (INCRUSE ELLIPTA) 7'S IH SCH (10:15)
[2022-06-23] MEDS: RT--FLUTICASONE/SALMETEROL 232-14 (AIRDUO RespiCLICK) IH SCH ×2 (10:15→20:09)
--- NOTE | 2022-06-23 11:25 | Progress Note - Hospitalist ---
Subjective HPI/CC On Admission Date Seen by Provider: Jun 23, 2022 Time Seen by Provider: 11:20 CC: Left sided facial cellulitis HPI: This is 62 yr old female with a past medical history of diabetes. She presents to room 408 with left sided facial cellulitis. She reports that it progressively worsened quickly. She was placed on broad spectrum antibiotics due to diabetes. Pt is currently stable. Subjective/Events-last exam Patient doing much better Discussed with Dr. Silver Discharge plan for tomorrow Less redness and less pain Focused Exam Lactate Level Objective Exam Vital Signs Vital Signs Date Time Temp Pulse Resp B/P (MAP) Pulse Ox O2 Delivery O2 Flow Rate FiO2 06/24/22 03:26 36.0 77 18 156/81 (106) 97 Nasal Cannula 3.00 06/20/22 23:40 21 Capillary Refill : General Appearance: No Apparent Distress, WD/WN, Chronically ill Respiratory: Lungs Clear, Normal Breath Sounds Cardiovascular: Regular Rate, Rhythm Neurologic/Psychiatric: Alert, Oriented x3, No Motor/Sensory Deficits, Normal Mood/Affect Results/Procedures Lab Laboratory Tests 06/23/22 05:15 Patient resulted labs reviewed. Assessment/Plan Assessment and Plan Assess & Plan/Chief Complaint Assessment: Left facial cellulitis s/p I&D Sepsis D[place] HTN CAD HTN HLP Obesity DM Plan: IV abx Dr Silver consult [facility] Pain control Home meds Diagnosis/Problems Diagnosis/Problems (1) Facial cellulitis (2) Sepsis JIM TAMAYO DO Jun 23, 2022 11:25
[2022-06-23 11:34] VITALS: BP 158/73
[2022-06-23 16:00] VITALS: BP 121/66
[2022-06-23 19:28] VITALS: BP 127/83
[2022-06-23] MEDS: MONTELUKAST 10 MG (SINGULAIR) TAB PO SCH (20:23)
[2022-06-23] MEDS: MIRTAZAPINE 15 MG (REMERON) TAB PO SCH (20:24)
[2022-06-23] MEDS: meTOprolol TARTRATE 25 MG (LOPRESSOR) TABLET PO SCH (20:24)
[2022-06-23] MEDS: eZETimibe 10 MG (ZETIA) TABLET PO SCH (20:24)
[2022-06-23] MEDS: LORATADINE (CLARITIN) 10 MG TAB PO SCH (20:24)
[2022-06-23] MEDS: HYDROcodone/APAP 7.5 MG/325 MG (LORTAB, LORCET PLUS) TABLET PO PRN (20:35)
[2022-06-23 23:22] VITALS: BP 109/62
[2022-06-24 03:26] VITALS: BP 156/81
[2022-06-24] MEDS: PIPERACILLIN SODIUM/TAZOBACTAM 4.5 GM in NS (IVPB) 100 ML IV SCH ×2 (04:14→13:05)
[2022-06-24 05:05] LABS: BASOPHILS # (AUTO) 0.1 10^3/uL (0.0-0.1); BASOPHILS % (AUTO) 1 % (0-10); EOSINOPHILS # (AUTO) 0.6 10^3/uL (0.0-0.3); EOSINOPHILS % (AUTO) 6 % (0-10); HEMATOCRIT 40 % (35-52); HEMOGLOBIN 12.7 g/dL (11.5-16.0); LYMPHOCYTES # (AUTO) 2.6 10^3/uL (1.0-4.0); LYMPHOCYTES % (AUTO) 26 % (12-44); MEAN CORPUSCULAR HEMOGLOBIN 28 pg (25-34); MEAN CORPUSCULAR HGB CONC 32 g/dL (32-36); MEAN CORPUSCULAR VOLUME 89 fL (80-99); MEAN PLATELET VOLUME 9.5 fL (9.0-12.2); MONOCYTES # (AUTO) 1.2 10^3/uL (0.0-1.0); MONOCYTES % (AUTO) 13 % (0-12); NEUTROPHILS # (AUTO) 5.2 10^3/uL (1.8-7.8); NEUTROPHILS % (AUTO) 53 % (42-75); PLATELET COUNT 283 10^3/uL (130-400); WHITE BLOOD COUNT 9.8 10^3/uL (4.3-11.0)
[2022-06-24 05:15] LABS: ALBUMIN 3.3 GM/DL (3.2-4.5); POTASSIUM 3.9 MMOL/L (3.6-5.0)
[2022-06-24 05:16] LABS: CALCIUM 9.1 MG/DL (8.5-10.1)
[2022-06-24 05:17] LABS: TOTAL PROTEIN 7.2 GM/DL (6.4-8.2)
[2022-06-24] MEDS: CLINDAMYCIN 600 MG/50 ML IVPB 50 ML IV SCH (05:18)
[2022-06-24] MEDS: PANTOPRAZOLE 40 MG (PROTONIX) TAB PO SCH (05:18)
[2022-06-24 05:19] LABS: BILIRUBIN,TOTAL 0.2 MG/DL (0.1-1.0)
[2022-06-24 05:21] LABS: CREATININE SERUM 1.23 MG/DL (0.60-1.30)
[2022-06-24] MEDS: inSUlin ASPART (NovoLOG) 1 UNIT/0.01 ML (CHARGE PER UNIT) SC SCH ×2 (05:21→11:58)
[2022-06-24 05:30] LABS: VANCOMYCIN,TROUGH 14.5 UG/ML (10.0-20.0)
[2022-06-24] MEDS ORDERED: TROUGH ORDER-PHARMACY XX NR (05:30)
[2022-06-24] MEDS: VANCOMYCIN 1 GM/NS 250 ML IVPB IV SCH ×2 (05:53)
[2022-06-24 07:50] VITALS: BP 152/82
[2022-06-24] MEDS: UMECLIDINIUM BROMIDE (INCRUSE ELLIPTA) 7'S IH SCH (08:00)
[2022-06-24] MEDS: RT--FLUTICASONE/SALMETEROL 232-14 (AIRDUO RespiCLICK) IH SCH (08:00)
[2022-06-24] MEDS: inSUlin ASPART (NovoLOG) 1 UNIT/0.01 ML (CHARGE PER UNIT) SQ SCH ×2 (09:29→12:26)
[2022-06-24] MEDS: buPROPion SR 150 MG (WELLBUTRIN SR) TAB PO SCH (09:30)
[2022-06-24] MEDS: DOCUSATE SODIUM 100 MG (COLACE) CAP PO SCH (09:30)
[2022-06-24] MEDS: ENOXAPARIN 40 MG/0.4 ML (LOVENOX) SYR SC SCH (09:30)
[2022-06-24] MEDS: GABAPENTIN 400 MG (NEURONTIN) CAP PO SCH ×2 (09:30→12:25)
[2022-06-24] MEDS: GLIMEPIRIDE 4 MG (AMARYL) TAB PO SCH (09:30)
[2022-06-24] MEDS: SENNOSIDES 8.6 MG (SENOKOT) TAB PO SCH (09:30)
[2022-06-24] MEDS: FERROUS SULF 325 MG (IRON) TAB PO SCH (09:30)
[2022-06-24] MEDS: ALPRAZolam 1 MG (XANAX) TAB PO SCH (09:31)
[2022-06-24] MEDS: ESTROGENS CONJ 0.625 MG (PREMARIN) TAB PO SCH (09:31)
[2022-06-24] MEDS: TORSEMIDE 20 MG (DEMADEX) TAB PO SCH (09:31)
[2022-06-24] MEDS: EMPAGLIFLOZIN 10 MG TABLET (JARDIANCE) PO SCH (09:31)
[2022-06-24] MEDS: PARoxetine 20 MG (PAXIL) TAB PO SCH (09:31)
[2022-06-24] MEDS: PARoxetine 10 MG (PAXIL) TAB PO SCH (09:39)
--- NOTE | 2022-06-24 09:56 | Progress Note - Surgery ---
JOVAN ALCANTAR 06/24/22 0956: Subjective Date Seen by a Provider: Jun 24, 2022 Time Seen by a Provider: 08:40 Subjective/Events-last exam Pt resting comfortably. States she is feeling better. She is still nauseous, but no vomiting. Her facial cellulitis has significantly improved, with less pain, s welling and redness. States her headache is better. Denies fever, chills, chest pain, difficulty breathing or any other complaints. Review of Systems General: No Chills, No Night Sweats HEENT: No Head Aches, No Visual Changes Pulmonary: No Dyspnea, No Cough Cardiovascular: No: Chest Pain Gastrointestinal: Nausea; No: Vomiting, Abdominal Pain Genitourinary: No Dysuria, No Frequency Musculoskeletal: No: leg pain Neurological: No: Weakness, Numbness Objective Exam Vital Signs Date Time Temp Pulse Resp B/P (MAP) Pulse Ox O2 Delivery O2 Flow Rate FiO2 06/24/22 07:50 36.4 86 18 152/82 (105) 96 Nasal Cannula 3.00 06/24/22 03:26 36.0 77 18 156/81 (106) 97 Nasal Cannula 3.00 06/23/22 23:22 36.0 81 18 109/62 (78) 96 Nasal Cannula 3.00 06/23/22 20:20 Room Air 06/23/22 20:10 95 06/23/22 19:28 36.5 100 20 127/83 (98) 93 Room Air 06/23/22 16:00 36.2 93 18 121/66 (84) 95 Room Air 06/23/22 11:34 36.6 89 20 158/73 (101) 95 Room Air 3.00 3.00 06/23/22 10:15 95 Room Air I & O 06/24/22 07:00 Intake Total 4520 ml Output Total 7100 ml Balance -2580 ml Capillary Refill : General Appearance: No Apparent Distress, WD/WN, Chronically ill, Obese HEENT: PERRL/EOMI, Moist Mucous Membranes, Other (facial cellulitis significantly improved, less redness, swelling and tenderness. I&D packing in place with minimal purulent drainage. Wound improving) Neck: Non Tender, Supple Respiratory: Lungs Clear, Normal Breath Sounds Cardiovascular: Regular Rate, Rhythm, No JVD, No Murmur, Normal Peripheral Pulses Peripheral Pulses: 2+ Radial Pulses (R), 2+ Radial Pulses (L) Gastrointestinal: non tender, soft Extremity: Normal Inspection, Non Tender, No Calf Tenderness, No Pedal Edema Neurologic/Psychiatric: Alert, Oriented x3, Normal Mood/Affect Skin: Warm/Dry, Other (minimal erythema, no purulent drainage open wound overall improving) Lymphatic: No Adenopathy Results Lab Laboratory Tests 06/23/22 10:20: Glucometer 227H 06/23/22 15:53: Glucometer 149H 06/23/22 20:04: Glucometer 203H 06/24/22 04:52: White Blood Count 9.8, Red Blood Count 4.52, Hemoglobin 12.7, Hematocrit 40, Ashlie n Corpuscular Volume 89, Mean Corpuscular Hemoglobin 28, Mean Corpuscular Hemoglobin Concent 32, Red Cell Distribution Width 14.1, Platelet Count 283, Mean Platelet Volume 9.5, Immature Granulocyte % (Auto) 2, Neutrophils (%) (Auto) 53, Lymphocytes (%) (Auto) 26, Monocytes (%) (Auto) 13H, Eosinophils (%) (Auto) 6, Basophils (%) (Auto) 1, Neutrophils # (Auto) 5.2, Lymphocytes # (Auto) 2.6, Monocytes # (Auto) 1.2H, Eosinophils # (Auto) 0.6H, Basophils # (Auto) 0.1, Immature Granulocyte # (Auto) 0.2H, Sodium Level 142, Potassium Level 3.9, Chloride Level 104, Carbon Dioxide Level 24, Anion Gap 14, Blood Urea Nitrogen 18, Creatinine 1.23, Estimat Glomerular Filtration Rate 50, BUN/Creatinine Ratio 15, Glucose Level 120H, Calcium Level 9.1, Corrected Calcium 9.7, Total Bilirubin 0.2, Aspartate Amino Transf (AST/SGOT) 42H, Alanine Aminotransferase (ALT/SGPT) 27, Alkaline Phosphatase 81, Total Protein 7.2, Albumin 3.3, Vancomycin Level Trough 14.5 Microbiology 06/22/22 Gram Stain - Final, Resulted 06/22/22 Anaerobic Culture, Resulted Pending 06/22/22 Surgical Culture - Preliminary, Resulted Staphylococcus aureus 06/20/22 Urine Culture - Final, Complete >=3 Gram Positive Isolates 06/20/22 Blood Culture - Preliminary, Resulted No growth Assessment/Plan Assessment/Plan Assessment/Plan Left Facial cellulitis/abscess - I&D POD 2 Leukocytosis - resolved CKD III COPD Diabetes Facial cellulitis significantly improved. Wound improved with minimal fluctuance, redness and swelling. Irrigate wound and repack. Continue PO abx Daily wound care F/u outpatient DEBBI SILVER DO 06/24/22 1557: Subjective Subjective/Events-last exam Feeling better. Swelling continues to decrease. Pain controlled. Slight nausea. Denies vomiting fever sweats chills shortness of breath or chest pain. Objective Exam General Appearance: No Apparent Distress, WD/WN, Chronically ill, Obese HEENT: PERRL/EOMI, Normal ENT Inspection, Other (facial cellulitis significantly improved, less redness, swelling and tenderness. I&D packing in place with minimal drainage. Wound improving) Neck: Non Tender, Supple Respiratory: Chest Non Tender, No Accessory Muscle Use, No Respiratory Distress Cardiovascular: Regular Rate, Rhythm, No JVD Gastrointestinal: non tender, soft Extremity: Normal Inspection, Non Tender Neurologic/Psychiatric: Alert, Oriented x3, Normal Mood/Affect Skin: Warm/Dry, Other (minimal erythema, no purulent drainage open wound overall improving) Lymphatic: No Adenopathy Assessment/Plan Assessment/Plan Assessment/Plan Left Facial cellulitis/abscess - I&D POD 2 Leukocytosis - resolved CKD III COPD Diabetes Facial cellulitis significantly improved. Wound improved with minimal fluctuance, redness and swelling. Irrigate wound and repack. Continue PO abx Daily wound care F/u outpatient Supervisory-Addendum Brief Verification & Attestation Participated in pt care: history, MDM, physical Personally performed: exam, history, MDM, supervision of care Care discussed with: Medical Student Procedures: n/a Results interpretation: Verified all documentation Verification and Attestation of Medical Student E/M Service A medical student performed and documented this service in my presence. I reviewed and verified all information documented by the medical student and made modifications to such information, when appropriate. I personally performed the physical exam and medical decision making. Debbi Silver, Jun 24, 2022,15:57 JOVAN ALCANTAR Jun 24, 2022 09:56 DEBBI SILVER DO Jun 24, 2022 15:57
[2022-06-24 11:48] VITALS: BP 157/84
[2022-06-24] MEDS ORDERED: ONDA4TAB11 PO (12:17)
[2022-06-24] MEDS ORDERED: SULF1TAB38 PO (12:17)
[2022-06-24] MEDS ORDERED: OXC5T PO (12:17)
[2022-06-24] MEDS: HYDROcodone/APAP 7.5 MG/325 MG (LORTAB, LORCET PLUS) TABLET PO PRN (12:35)
== END 2022-06-24 14:24 | disposition home or self-care (01) | DRG 872 ==
LOC: EDUNIT# 20:12 → ER 20:15 → 4TH 22:26
PROVIDERS: ADMIT Internal Medicine; ATTEND Internal Medicine
PROC: 0J910ZZ Drainage of Face Subcutaneous Tissue and Fascia, Open Approach (ICD-10-PCS; principal; 2022-06-22 09:20)
DX: A41.9 Sepsis, unspecified organism (principal); L03.211 Cellulitis of face; Z68.42 Body mass index [BMI] 45.0-49.9, adult; L02.01 Cutaneous abscess of face; G47.33 Obstructive sleep apnea (adult) (pediatric); I25.10 Atherosclerotic heart disease of native coronary artery without angina pectoris; E66.9 Obesity, unspecified; E78.00 Pure hypercholesterolemia, unspecified; E11.40 Type 2 diabetes mellitus with diabetic neuropathy, unspecified; K21.9 Gastro-esophageal reflux disease without esophagitis; M19.90 Unspecified osteoarthritis, unspecified site; M79.7 Fibromyalgia; G89.29 Other chronic pain; M54.9 Dorsalgia, unspecified; K57.90 Diverticulosis of intestine, part unspecified, without perforation or abscess without bleeding; F32.A Depression, unspecified; F41.9 Anxiety disorder, unspecified; Z79.82 Long term (current) use of aspirin; Z79.4 Long term (current) use of insulin; Z79.899 Other long term (current) drug therapy; N18.30 Chronic kidney disease, stage 3 unspecified; I12.9 Hypertensive chronic kidney disease with stage 1 through stage 4 chronic kidney disease, or unspecified chronic kidney disease; E11.22 Type 2 diabetes mellitus with diabetic chronic kidney disease; J44.9 Chronic obstructive pulmonary disease, unspecified; Z87.891 Personal history of nicotine dependence; D72.829 Elevated white blood cell count, unspecified
CPT/HCPCS: 36415; 70487; 71045; 80053; 80202; 81000; 82947; 83605; 85025; 85610; 85730; 87040; 87070; 87075; 87077; 87088; 87186; 87205; 94640; 94760